=== PATIENT | male | born 1950 | race Caucasian/White ===

== ENCOUNTER 2017-09-28 10:32 | Inpatient (IN) | payer MEDICARE ==
[2017-09-28] VITALS (14 sets, daily range): BP systolic 78–103; BP diastolic 50–56; PULSE 76–88; RESP 17–26; TEMP 97.2–98.1; O2SAT 94–100
[~2017-09-28] VITALS: Ht 172.7 cm; Wt 65.8 kg
[2017-09-28] MEDS ORDERED: SODIUM CHLORIDE 0.9% FLUSH 10 ML FLUSH IVF PRN (11:15)
--- NOTE | 2017-09-28 11:36 | PD ---
HPI . Weakness/fall Chief Complaint: Fall Time Seen by Provider: 11:04 Travel History International Travel<30 days: No Contact w/Intl Traveler<30days: No Traveled to known affect area: No History of Present Illness HPI 66-year-old male patient presents emergency department for evaluation of weakness that caused him to fall on his knees earlier today and not be able to get up. Patient states the fall was mechanical in nature when he was attempting to the door. Patient denies syncope or loss of consciousness. Patient denies hitting his head or sustaining any injuries during this fall. Patient states she has had diarrhea 3-4 weeks. He had decreased appetite but denies any nausea or vomiting. Patient looks disheveled, unkempt and ashen in color. Patient smokes 2 packs of cigarettes a day. He denies any alcohol or drug use. Patient denies any major medical history and does not take any daily medication. PFSH Past Medical History Diminished Hearing: No Hepatitis: Yes (HEP C "IN THE 80'S" ) Influenza Vaccination: No Past Surgical History Surgical History: No Previous Surgery Social History Alcohol Use: Yes (OCCASIONAL WINE) Tobacco Use: Yes (1/2-1 PPD) Substance Use: No Allergies-Medications (Allergen,Severity, Reaction): Coded Allergies: No Known Allergies (Unverified , 09/28/17) Review of Systems Except as stated in HPI: all other systems reviewed are Neg Physical Exam Narrative GENERAL: Well-nourished, well-developed 66-year-old male patient in no acute distress. Nontoxic appearing. SKIN: Focused skin assessment warm/dry. HEAD: Normocephalic. Atraumatic. NEUROLOGICAL: Awake and alert. Cranial nerves II through XII intact. Motor and sensory grossly within normal limits. Five out of 5 muscle strength in all muscle groups. Normal speech. EYES: No scleral icterus. No injection or drainage. NECK: Supple, trachea midline. No JVD or lymphadenopathy. CARDIOVASCULAR: Regular rate and rhythm without murmurs, gallops, or rubs. RESPIRATORY: Breath sounds equal bilaterally. No accessory muscle use. GASTROINTESTINAL: Abdomen soft, non-tender, nondistended. MUSCULOSKELETAL: No cyanosis, or edema. BACK: Nontender without obvious deformity. No CVA tenderness. Data Data Last Documented VS Vital Signs Date Time Temp Pulse Resp B/P (MAP) Pulse Ox O2 Delivery O2 Flow Rate FiO2 09/28/17 12:03 83 18 103/55 (71) 95 Room Air 09/28/17 10:41 97.4 Orders Orders Electrocardiogram (09/28/17 11:12) Complete Blood Count With Diff (09/28/17 11:12) Comprehensive Metabolic Panel (09/28/17 11:12) Magnesium (Mg) (09/28/17 11:12) Ckmb (Isoenzyme) Profile (09/28/17 11:12) Troponin I (09/28/17 11:12) Act Partial Throm Time (Ptt) (09/28/17 11:12) Prothrombin Time / Inr (Pt) (09/28/17 11:12) Urinalysis - C+S If Indicated (09/28/17 11:12) Chest, Single Ap (09/28/17 11:12) Blood Glucose (09/28/17 11:12) Ecg Monitoring (09/28/17 11:12) Iv Access Insert/Monitor (09/28/17 11:12) Oximetry (09/28/17 11:12) Oxygen Administration (09/28/17 11:12) Sodium Chloride 0.9% Flush (Ns Flush) (09/28/17 11:15) Orthostatic Vital Signs (09/28/17 11:12) Red Blood Cells (Rbc) (09/28/17 11:49) Blood Product Administration (09/28/17 11:49) Type And Screen (09/28/17 11:49) CKMB (09/28/17 11:30) CKMB% (09/28/17 11:30) Labs Laboratory Tests Test 09/28/17 11:30 White Blood Count 5.1 TH/MM3 Red Blood Count 1.78 MIL/MM3 Hemoglobin 6.1 GM/DL Hematocrit 18.3 % Mean Corpuscular Volume 102.6 FL Mean Corpuscular Hemoglobin 34.1 PG Mean Corpuscular Hemoglobin Concent 33.3 % Red Cell Distribution Width 16.8 % Platelet Count 91 TH/MM3 Mean Platelet Volume 7.7 FL Neutrophils (%) (Auto) 76.1 % Lymphocytes (%) (Auto) 16.0 % Monocytes (%) (Auto) 7.5 % Eosinophils (%) (Auto) 0.0 % Basophils (%) (Auto) 0.4 % Neutrophils # (Auto) 3.9 TH/MM3 Lymphocytes # (Auto) 0.8 TH/MM3 Monocytes # (Auto) 0.4 TH/MM3 Eosinophils # (Auto) 0.0 TH/MM3 Basophils # (Auto) 0.0 TH/MM3 CBC Comment AUTO DIFF Differential Comment AUTO DIFF CONFIRMED Toxic Granulation 1+ Platelet Estimate LOW Platelet Morphology Comment NORMAL Ovalocytes 1+ Acanthocytes OCC Prothrombin Time 16.9 SEC Prothromb Time International Ratio 1.7 RATIO Activated Partial Thromboplast Time 29.8 SEC Blood Urea Nitrogen 28 MG/DL Creatinine 0.53 MG/DL Random Glucose 113 MG/DL Total Protein 6.5 GM/DL Albumin 1.9 GM/DL Calcium Level 7.7 MG/DL Magnesium Level 2.1 MG/DL Alkaline Phosphatase 71 U/L Aspartate Amino Transf (AST/SGOT) 17 U/L Alanine Aminotransferase (ALT/SGPT) 9 U/L Total Bilirubin 1.6 MG/DL Sodium Level 142 MEQ/L Potassium Level 2.9 MEQ/L Chloride Level 101 MEQ/L Carbon Dioxide Level 33.6 MEQ/L Anion Gap 7 MEQ/L Estimat Glomerular Filtration Rate 156 ML/MIN Total Creatine Kinase 109 U/L Troponin I LESS THAN 0.02 NG/ML MDM Medical Decision Making Medical Screen Exam Complete: Yes Emergency Medical Condition: Yes Differential Diagnosis Differential diagnoses include but not limited to electrolyte abnormality, syncope, coronary event, hypoxia, malignancy, dehydration, GI bleed Narrative Course 66 year old male patient presents to the emergency department for evaluation after falling on his knee while trying to answer the door at the hotel he is staying at. When he fell on his knees he was unable to keep back up. IV obtained , patient placed on the monitor and blood work sent to the lab. CBC, CMP, Mag, Trop/CK, PT/INR, UA ordered and pending. Orthostatic vital signs, chest x-ray, blood glucose, EKG obtained. Patient's baseline O2 sat is low 90s, but patient desaturated significantly when he sat up in bed to the mid 70s. Supplemental oxygen applied. CBC resulted a critically low HBG at 6.1. Type and screen ordered and pending. 2 packed RBCs ordered. Mass versus loculated pleural fluid seen in the right midlung. Bedside Hemoccult stool test performed with RN and student nurse at the bedside. Hemoccult positive. Patient will be admitted to the hospital for GI bleed and anemia. Residents paged for admission. Dr Ptae and the residents accepted admission. Patient will be admitted at this time. Last Impressions Chest X-Ray 09/28/17 1112 Signed Impressions: Service Date/Time: Thursday, September 28, 2017 11:23 - CONCLUSION: 1. Mass versus loculated pleural fluid in the fissure of the right mid lung. CT of the chest is recommended, preferably with intravenous contrast. 2. Small free-flowing right pleural effusion at the base. 3. Left lung is clear. 4. Tortuous thoracic aorta. Nicko Goodman MD Diagnosis Primary Impression: GI bleed Qualified Codes: K92.2 - Gastrointestinal hemorrhage, unspecified Additional Impression: Anemia Qualified Codes: D64.9 - Anemia, unspecified Admitting Information Admitting Physician Requests: Admit Sharron Gill Sep 28, 2017 11:36
--- NOTE | 2017-09-28 11:39 | RADRPT ---
EXAM DATE/TIME: 09/28/2017 11:23 [facility] COMPARISON: No previous studies available for comparison. INDICATIONS : Weakness, fainted today. MEDICAL HISTORY : Unobtainable SURGICAL HISTORY : Unobtainable ENCOUNTER: Initial ACUITY: 1 day PAIN SCORE: 0/10 LOCATION: Bilateral chest FINDINGS: Right perihilar masslike opacity measuring 2.5 x 3.9 cm in size. Differential is mass versus focally loculated fluid in the fissure. Mild right mid lung parenchymal consolidation. A small right pleural effusion is evident. The left lung is clear. There is no pneumothorax. Normal heart size. Thoracic aorta is tortuous. CONCLUSION: 1. Mass versus loculated pleural fluid in the fissure of the right mid lung. CT of the chest is recom mended, preferably with intravenous contrast. 2. Small free-flowing right pleural effusion at the base. 3. Left lung is clear. 4. Tortuous thoracic aorta. Nicko Goodman MD on September 28, 2017 at 11:35 Board Certified Radiologist. This report was verified electronically.
[2017-09-28 11:45] LABS: AUTOMATED NEUTROPHIL # 3.9 TH/MM3 (1.8-7.7); BASOPHIL % 0.4 % (0.0-2.0); LYMPHOCYTE # 0.8 TH/MM3 (1.0-4.8); MEAN CELL VOLUME 102.6 FL (80.0-100.0); MEAN CORPUSCULAR HEMOGLOBIN 34.1 PG (27.0-34.0); MEAN CORPUSCULAR HGB CONC 33.3 % (32.0-36.0); MEAN PLATELET VOLUME 7.7 FL (7.0-11.0); MONO % 7.5 % (0.0-8.0); MONOCYTE # 0.4 TH/MM3 (0-0.9); NEUT % 76.1 % (16.0-70.0); PLATELET COUNT 91 TH/MM3 (150-450); RED BLOOD COUNT 1.78 MIL/MM3 (4.50-5.90); RED CELL DISTRIBUTION WIDTH 16.8 % (11.6-17.2); WHITE BLOOD COUNT 5.1 TH/MM3 (4.0-11.0)
[2017-09-28 11:50] LABS: HEMATOCRIT 18.3 % (39.0-51.0); HEMOGLOBIN 6.1 GM/DL (13.0-17.0)
[2017-09-28 11:55] LABS: INTERNATIONAL NORMALIZED RATIO 1.7 RATIO; PROTHROMBIN TIME - PATIENT 16.9 SEC (9.8-11.6)
[2017-09-28 12:10] LABS: ALBUMIN 1.9 GM/DL (3.4-5.0); ALKALINE PHOSPHATASE 71 U/L (45-117); ALT (GPT) 9 U/L (12-78); AST (GOT) 17 U/L (15-37); BICARBONATE 33.6 MEQ/L (21.0-32.0); BLOOD UREA NITROGEN 28 MG/DL (7-18); CALCIUM 7.7 MG/DL (8.5-10.1); CHLORIDE 101 MEQ/L (98-107); CREATININE 0.53 MG/DL (0.60-1.30); GLOMERULAR FILTRATION RATE 156 ML/MIN (>89); GLUCOSE,RANDOM 113 MG/DL (74-106); MAGNESIUM 2.1 MG/DL (1.5-2.5); SODIUM (NA) 142 MEQ/L (136-145); TOTAL BILIRUBIN ADULT 1.6 MG/DL (0.2-1.0); TOTAL PROTEIN 6.5 GM/DL (6.4-8.2); TROPONIN I LESS THAN 0.02 NG/ML (0.02-0.05)
[2017-09-28 12:32] LABS: ACANTHOCYTES OCC (NORMAL); OVALOCYTES 1+ (NORMAL); TOXIC GRANULATION 1+ (NORMAL)
--- NOTE | 2017-09-28 13:29 | PD ---
Data Data Last Documented VS Vital Signs Date Time Temp Pulse Resp B/P (MAP) Pulse Ox O2 Delivery O2 Flow Rate FiO2 09/28/17 12:03 83 18 103/55 (71) 95 Room Air 09/28/17 10:41 97.4 Orders Orders Electrocardiogram (09/28/17 11:12) Complete Blood Count With Diff (09/28/17 11:12) Comprehensive Metabolic Panel (09/28/17 11:12) Magnesium (Mg) (09/28/17 11:12) Ckmb (Isoenzyme) Profile (09/28/17 11:12) Troponin I (09/28/17 11:12) Act Partial Throm Time (Ptt) (09/28/17 11:12) Prothrombin Time / Inr (Pt) (09/28/17 11:12) Chest, Single Ap (09/28/17 11:12) Blood Glucose (09/28/17 11:12) Ecg Monitoring (09/28/17 11:12) Iv Access Insert/Monitor (09/28/17 11:12) Oximetry (09/28/17 11:12) Oxygen Administration (09/28/17 11:12) Sodium Chloride 0.9% Flush (Ns Flush) (09/28/17 11:15) Orthostatic Vital Signs (09/28/17 11:12) Red Blood Cells (Rbc) (09/28/17 11:49) Blood Product Administration (09/28/17 11:49) Type And Screen (09/28/17 11:49) CKMB (09/28/17 11:30) CKMB% (09/28/17 11:30) Admit Order (Ed Use Only) (09/28/17 13:07) Labs Laboratory Tests Test 09/28/17 11:30 White Blood Count 5.1 TH/MM3 Red Blood Count 1.78 MIL/MM3 Hemoglobin 6.1 GM/DL Hematocrit 18.3 % Mean Corpuscular Volume 102.6 FL Mean Corpuscular Hemoglobin 34.1 PG Mean Corpuscular Hemoglobin Concent 33.3 % Red Cell Distribution Width 16.8 % Platelet Count 91 TH/MM3 Mean Platelet Volume 7.7 FL Neutrophils (%) (Auto) 76.1 % Lymphocytes (%) (Auto) 16.0 % Monocytes (%) (Auto) 7.5 % Eosinophils (%) (Auto) 0.0 % Basophils (%) (Auto) 0.4 % Neutrophils # (Auto) 3.9 TH/MM3 Lymphocytes # (Auto) 0.8 TH/MM3 Monocytes # (Auto) 0.4 TH/MM3 Eosinophils # (Auto) 0.0 TH/MM3 Basophils # (Auto) 0.0 TH/MM3 CBC Comment AUTO DIFF Differential Comment AUTO DIFF CONFIRMED Toxic Granulation 1+ Platelet Estimate LOW Platelet Morphology Comment NORMAL Ovalocytes 1+ Acanthocytes OCC Prothrombin Time 16.9 SEC Prothromb Time International Ratio 1.7 RATIO Activated Partial Thromboplast Time 29.8 SEC Blood Urea Nitrogen 28 MG/DL Creatinine 0.53 MG/DL Random Glucose 113 MG/DL Total Protein 6.5 GM/DL Albumin 1.9 GM/DL Calcium Level 7.7 MG/DL Magnesium Level 2.1 MG/DL Alkaline Phosphatase 71 U/L Aspartate Amino Transf (AST/SGOT) 17 U/L Alanine Aminotransferase (ALT/SGPT) 9 U/L Total Bilirubin 1.6 MG/DL Sodium Level 142 MEQ/L Potassium Level 2.9 MEQ/L Chloride Level 101 MEQ/L Carbon Dioxide Level 33.6 MEQ/L Anion Gap 7 MEQ/L Estimat Glomerular Filtration Rate 156 ML/MIN Total Creatine Kinase 109 U/L Creatine Kinase MB 1.4 NG/ML Troponin I LESS THAN 0.02 NG/ML [facility] Medical Record Reviewed: Yes Supervised Visit with TAMARA: Yes Narrative Course Please refer to the midlevel note. The patient will be admitted for PRBCs for further diagnostic evaluation. case d/w FMRP. Diagnosis Primary Impression: GI bleed Qualified Codes: K92.2 - Gastrointestinal hemorrhage, unspecified Additional Impression: Anemia Qualified Codes: D64.9 - Anemia, unspecified Kenny Alvarez MD Sep 28, 2017 13:29
--- NOTE | 2017-09-28 13:43 | HHI.HP ---
[facility] Service Family Medicine Primary Care Physician Admission Diagnosis GI bleed, anemia Diagnoses: International Travel<30 Days: No Contact w/Intl Traveler<30days: No Known Affected Area: No History of Present Illness 66 yr old M with Hep C, heavy smoking history (2ppd for 61 yrs), and chronic aspirin use presents to the ED with anemia. Patient is from [place] and travels to [place] during the winter season. He has been in [facility] for 1 month and has been staying at the [facility]. He reports falling down yesterday morning due to weakness after answering the door. He thought someone was knocking. After nobody was there, he was walking back to his bed when he felt weak and fell onto his knees. He did not hit his head or denies LOC. He was unable to get up off the floor afterwards. He is unsure, but he thinks he was stuck on the floor for over a day until someone came to help him. He lives by himself in the [facility] and the land lady checks up on him every so often. She found him after a day and immediately called 911. He was found to have a Hbg of 6.1 in the ED. He reports 1 month hx of black starry stools and diarrhea. He states that he has been taking 2-3 baby aspirins/day for the past couple of years. When asked if he took it for pain, he replied "I like the taste." He also reports taking advil routinely, but was unable to describe the amount and duration. He reports that his last meal was 2 weeks ago and has been drinking water and soda. He says that he use to be 200-210 lbs but has gradually lost weight. He endorses chronic cough. He denies CP, SOB, abdominal pain, and N/V. Review of Systems Constitutional: COMPLAINS OF: Fatigue, Weight loss, DENIES: Fever, Chills Eyes: DENIES: Blurred vision Ears, nose, mouth, throat: DENIES: Throat pain Respiratory: COMPLAINS OF: Cough, DENIES: Wheezing, Hemoptysis, Shortness of breath Cardiovascular: DENIES: Chest pain, Lower Extremity Edema Gastrointestinal: COMPLAINS OF: Black stools, Diarrhea, DENIES: Abdominal pain , Nausea, Vomiting Genitourinary: DENIES: Dysuria Musculoskeletal: COMPLAINS OF: Back pain (sacral ulcer ), DENIES: Muscle aches Hematologic/lymphatic: DENIES: Bruising, Lymphadenopathy Neurologic: DENIES: Headache Psychiatric: COMPLAINS OF: Confusion Past Family Social History Past Medical History Hepatitis C- reports being treated back in the 80s Past Surgical History None Allergies: Coded Allergies: No Known Allergies (Unverified , 09/28/17) Family History No family in [facility] or [place], reports only have 1 cousin in [place]. Has not talked to cousin in several years. Mom-DM Father- heavy smoker Social History Has been living in [facility] in a motel for 1 month, comes to [facility] every year during winter for the past 5 years Has smoked since he was 15, smokes 2ppd Drank alcohol in the past, said he stopped in his 20s Denies illicit drug use Physical Exam Vital Signs Vital Signs Date Time Temp Pulse Resp B/P (MAP) Pulse Ox O2 Delivery O2 Flow Rate FiO2 09/28/17 13:32 Nasal Cannula 2.00 09/28/17 12:03 83 18 103/55 (71) 95 Room Air 09/28/17 12:00 95 Room Air 09/28/17 12:00 83 18 103/55 (71) 95 Room Air 09/28/17 10:47 Room Air 09/28/17 10:41 97.4 86 26 103/55 (71) 97 Physical Exam GENERAL: disheveled, cachectic, man, looks older than his stated age SKIN: sacral ulcer -Stage I, severe crusting and calluses on b/l ankles and feet HEAD: Atraumatic. Normocephalic. No temporal or scalp tenderness. EYES: Pupils equal round and reactive. Extraocular motions intact. b/l conjunctival pallor ENT: Poor dentition, throat clear NECK: Trachea midline. No JVD or lymphadenopathy. CARDIOVASCULAR: Regular rate and rhythm without murmurs, gallops, or rubs. RESPIRATORY: Clear to auscultation. Breath sounds equal bilaterally. No wheezes , rales, or rhonchi. GASTROINTESTINAL: Abdomen soft, non-tender, non-distend. Able to palpate abdominal aorta. MUSCULOSKELETAL: Extremities without clubbing, cyanosis, or edema. No joint tenderness, effusion, or edema noted. NEUROLOGICAL: Awake, Alert, Oriented x3 . Laboratory Laboratory Tests Test 09/28/17 11:30 White Blood Count 5.1 Red Blood Count 1.78 Hemoglobin 6.1 Hematocrit 18.3 Mean Corpuscular Volume 102.6 Mean Corpuscular Hemoglobin 34.1 Mean Corpuscular Hemoglobin Concent 33.3 Red Cell Distribution Width 16.8 Platelet Count 91 Mean Platelet Volume 7.7 Neutrophils (%) (Auto) 76.1 Lymphocytes (%) (Auto) 16.0 Monocytes (%) (Auto) 7.5 Eosinophils (%) (Auto) 0.0 Basophils (%) (Auto) 0.4 Neutrophils # (Auto) 3.9 Lymphocytes # (Auto) 0.8 Monocytes # (Auto) 0.4 Eosinophils # (Auto) 0.0 Basophils # (Auto) 0.0 CBC Comment AUTO DIFF Differential Comment AUTO DIFF CONFIRMED Toxic Granulation 1+ Platelet Estimate LOW Platelet Morphology Comment NORMAL Ovalocytes 1+ Acanthocytes OCC Prothrombin Time 16.9 Prothromb Time International Ratio 1.7 Activated Partial Thromboplast Time 29.8 Blood Urea Nitrogen 28 Creatinine 0.53 Random Glucose 113 Total Protein 6.5 Albumin 1.9 Calcium Level 7.7 Magnesium Level 2.1 Alkaline Phosphatase 71 Aspartate Amino Transf (AST/SGOT) 17 Alanine Aminotransferase (ALT/SGPT) 9 Total Bilirubin 1.6 Sodium Level 142 Potassium Level 2.9 Chloride Level 101 Carbon Dioxide Level 33.6 Anion Gap 7 Estimat Glomerular Filtration Rate 156 Total Creatine Kinase 109 Creatine Kinase MB 1.4 Troponin I LESS THAN 0.02 Result Diagram: 09/28/17 1130 09/28/17 1130 Imaging Last Impressions Chest X-Ray 09/28/17 1112 Signed Impressions: Service Date/Time: Thursday, September 28, 2017 11:23 - CONCLUSION: 1. Mass versus loculated pleural fluid in the fissure of the right mid lung. CT of the chest is recommended, preferably with intravenous contrast. 2. Small free-flowing right pleural effusion at the base. 3. Left lung is clear. 4. Tortuous thoracic aorta. Nicko Goodman MD Caprini VTE Risk Assessment Caprini VTE Risk Assessment: Mod/High Risk (score >= 2) Caprini Risk Assessment Model Point Value = 1 Point Value = 2 Point Value = 3 Point Value = 5 Age 41-60 Minor surgery BMI > 25 kg/m2 Swollen legs Varicose veins or History of unexplained or recurrent spontaneous Oral contraceptives or hormone replacement Sepsis (< 1 month) Serious lung disease, including pneumonia (< 1 month) Abnormal pulmonary function Acute myocardial infarction Congestive heart failure (< 1 month) History of inflammatory bowel disease Medical patient at bed rest Age 61-74 Arthroscopic surgery Major open surgery (> 45 min) Laparoscopic surgery (> 45 min) Malignancy Confined to bed (> 72 hours) Immobilizing plaster cast Central venous access Age >= 75 History of VTE Family history of VTE Factor V Leiden Prothrombin [id number] Lupus anticoagulant Anticardiolipin antibodies Elevated serum homocysteine Heparin-induced thrombocytopenia Other congenital or acquired thrombophilia Stroke (< 1 month) Elective arthroplasty Hip, pelvis, or leg fracture Acute spinal cord injury (< 1 month) Prophylaxis Regimen Total Risk Factor Score Risk Level Prophylaxis Regimen 0-1 Low Early ambulation 2 Moderate Order ONE of the following: *Sequential Compression Device (SCD) *Heparin 5000 units SQ BID 3-4 Higher Order ONE of the following medications: *Heparin 5000 units SQ TID *Enoxaparin/Lovenox 40 mg SQ daily (WT < 150 kg, CrCl > 30 mL/min) *Enoxaparin/Lovenox 30 mg SQ daily (WT < 150 kg, CrCl > 10-29 mL/min) *Enoxaparin/Lovenox 30 mg SQ BID (WT < 150 kg, CrCl > 30 mL/min) AND/OR *Sequential Compression Device (SCD) 5 or more Highest Order ONE of the following medications: *Heparin 5000 units SQ TID (Preferred with Epidurals) *Enoxaparin/Lovenox 40 mg SQ daily (WT < 150 kg, CrCl > 30 mL/min) *Enoxaparin/Lovenox 30 mg SQ daily (WT < 150 kg, CrCl > 10-29 mL/min) *Enoxaparin/Lovenox 30 mg SQ BID (WT < 150 kg, CrCl > 30 mL/min) AND *Sequential Compression Device (SCD) Assessment and Plan Assessment and Plan 66 yr old M Hep C, hx of heavy smoking (2ppd for 61 yrs), and chronic aspirin use presents to the ED with anemia and black tarry stools secondary to suspected GI bleed. Hemoccult positive. GI consulted. Code Status DNR Discussed Condition With Dr. Pate and Dr. Xavier Problem List: (1) GI bleed ICD Codes: K92.2 - Gastrointestinal hemorrhage, unspecified Status: Acute Plan: Hb of 6.1,1 month hx of black tarry stools, chronic aspirin use 2 units of PRBCs ordered Hemoccult performed by RN in ED on 09/28- positive GI consulted, appreciate recs Monitor H/H post transfusion Protonix 40 mg IV q12h (2) Anemia ICD Codes: D64.9 - Anemia, unspecified Status: Acute Plan: Hb of 6.1 secondary to suspected GI bleed Please see plan above (3) Abnormal chest x-ray ICD Codes: R93.8 - Abnormal findings on diagnostic imaging of other specified body structures Plan: Heavy smoker. Mass 2.51 x 3.86 found on CXR. Small free-flowing right pleural effusion at the base. CT chest to further evaluate mass, will consider med onc consultation (4) Hypokalemia ICD Codes: E87.6 - Hypokalemia Plan: K+ 2.9 Orally replaced 60 meq potassium chloride once Continue to monitor (5) Hepatitis C ICD Codes: B19.20 - Unspecified viral hepatitis C without hepatic coma Plan: Patient reports history of Hep C. Patient reports being treated in the 's. LFTs wnl. (6) RALF (acute kidney injury) ICD Codes: N17.9 - Acute kidney failure, unspecified Plan: RALF secondary to dehydration BUN 28 and Cr 0.53 Continue to monitor MIVFs (7) Sacral wound ICD Codes: S31.000A - Unspecified open wound of lower back and pelvis without penetration into retroperitoneum, initial encounter Plan: Stage 1 sacral ulcer wound Wound care consulted, appreciate recs (8) Nutrition, metabolism, and development symptoms ICD Codes: R63.8 - Other symptoms and signs concerning food and fluid intake Plan: Fluids: 250mls hr MIVF for 1 bag, will continue with 140mls/hr thereafter Diet: Regular Basic Electrolytes: monitor and replace as needed Other: Case management consulted GI ppx: Protonix 40mg IV q12h DVT ppx: SCDs Physician Certification 2 Midnight Certification Type: Admission for Inpatient Services Order for Inpatient Services The services are ordered in accordance with Medicare regulations or non- Medicare payer requirements, as applicable. In the case of services not specified as inpatient-only, they are appropriately provided as inpatient services in accordance with the 2-midnight benchmark. Estimated LOS (days): 2 2 days is the estimated time the patient will need to remain in the hospital, assuming treatment plan goals are met and no additional complications. Post-Hospital Plan: Home Problem Qualifiers (1) GI bleed: Qualified Codes: K92.2 - Gastrointestinal hemorrhage, unspecified (2) Anemia: Qualified Codes: D64.9 - Anemia, unspecified Penelope Velasquez MD R1 Sep 28, 2017 13:43
[2017-09-28] MEDS ORDERED: NALOXONE HCL 0.4 MG/ML AMP IV PUSH PRN (13:45)
[2017-09-28] MEDS ORDERED: SODIUM CHLORIDE 0.9% FLUSH 10 ML FLUSH IV FLUSH PRN (13:45)
[2017-09-28] MEDS ORDERED: POTASSIUM CHLORIDE 10 MEQ CONTROLLED RELEASE TAB PO ONE (14:00)
[2017-09-28] MEDS: SODIUM CHLORIDE 0.9% FLUSH 10 ML FLUSH IV FLUSH SCH ×2 (14:03→21:00)
[2017-09-28] MEDS: SODIUM CHLOR 0.9% 1000 ML INJ 1,000 ML IV SCH ×2 (14:03→21:36)
[2017-09-28] MEDS: PANTOPRAZOLE SODIUM 40 MG VIAL IV PUSH SCH (14:04)
--- NOTE | 2017-09-28 14:05 | HHI.FPPN ---
Subjective Remarks Pt. seen, examined and discussed with the medicine team. This is a 66 yo male from [place] here for the winter who lives in a hotel for the past 3 weeks. 1-2 days ago (pt. unsure) he got up to answer the door and fell due to leg weakness. He was down for at least 1 full day, but was found today by his landlord. Unable to get him up; called [facility]. C/O progressive weakness for several weeks, and reports having loose, tarry and sticky stools for 3 weeks, unable to get to BR at times due to weakness. Did not note alyssa blood in stool. C/O cough, not productive of sputum or blood. Only liquids po for several weeks. C/O weakness of extremities. He takes 2-3 NSAIDS po daily for years, ASA and Advil and other OTC pain meds. Smokes 2 ppd (100 pack years). No etoh, no illicits. Never , no family known. Requests NO CODE. See H&P for this admission for additional past, family, social hx and ROS. Objective Vitals Vital Signs Date Time Temp Pulse Resp B/P (MAP) Pulse Ox O2 Delivery O2 Flow Rate FiO2 09/28/17 13:32 Nasal Cannula 2.00 09/28/17 12:03 83 18 103/55 (71) 95 Room Air 09/28/17 12:00 95 Room Air 09/28/17 12:00 83 18 103/55 (71) 95 Room Air 09/28/17 10:47 Room Air 09/28/17 10:41 97.4 86 26 103/55 (71) 97 Result Diagram: 09/28/17 1130 09/28/17 1130 Other Results Laboratory Tests Test 09/28/17 11:30 White Blood Count 5.1 TH/MM3 Red Blood Count 1.78 MIL/MM3 Hemoglobin 6.1 GM/DL Hematocrit 18.3 % Mean Corpuscular Volume 102.6 FL Mean Corpuscular Hemoglobin 34.1 PG Mean Corpuscular Hemoglobin Concent 33.3 % Red Cell Distribution Width 16.8 % Platelet Count 91 TH/MM3 Mean Platelet Volume 7.7 FL Neutrophils (%) (Auto) 76.1 % Lymphocytes (%) (Auto) 16.0 % Monocytes (%) (Auto) 7.5 % Eosinophils (%) (Auto) 0.0 % Basophils (%) (Auto) 0.4 % Neutrophils # (Auto) 3.9 TH/MM3 Lymphocytes # (Auto) 0.8 TH/MM3 Monocytes # (Auto) 0.4 TH/MM3 Eosinophils # (Auto) 0.0 TH/MM3 Basophils # (Auto) 0.0 TH/MM3 CBC Comment AUTO DIFF Differential Comment AUTO DIFF CONFIRMED Toxic Granulation 1+ Platelet Estimate LOW Platelet Morphology Comment NORMAL Ovalocytes 1+ Acanthocytes OCC Prothrombin Time 16.9 SEC Prothromb Time International Ratio 1.7 RATIO Activated Partial Thromboplast Time 29.8 SEC Blood Urea Nitrogen 28 MG/DL Creatinine 0.53 MG/DL Random Glucose 113 MG/DL Total Protein 6.5 GM/DL Albumin 1.9 GM/DL Calcium Level 7.7 MG/DL Magnesium Level 2.1 MG/DL Alkaline Phosphatase 71 U/L Aspartate Amino Transf (AST/SGOT) 17 U/L Alanine Aminotransferase (ALT/SGPT) 9 U/L Total Bilirubin 1.6 MG/DL Sodium Level 142 MEQ/L Potassium Level 2.9 MEQ/L Chloride Level 101 MEQ/L Carbon Dioxide Level 33.6 MEQ/L Anion Gap 7 MEQ/L Estimat Glomerular Filtration Rate 156 ML/MIN Total Creatine Kinase 109 U/L Creatine Kinase MB 1.4 NG/ML Troponin I LESS THAN 0.02 NG/ML Imaging Last Impressions Chest X-Ray 09/28/17 1112 Signed Impressions: Service Date/Time: Thursday, September 28, 2017 11:23 - CONCLUSION: 1. Mass versus loculated pleural fluid in the fissure of the right mid lung. CT of the chest is recommended, preferably with intravenous contrast. 2. Small free-flowing right pleural effusion at the base. 3. Left lung is clear. 4. Tortuous thoracic aorta. Nicko Goodman MD Objective Remarks O. CONSTITUTIONAL/GEN: Cachectic male, pale and weak, appearing >> stated age. EYES: conjunctiva very pale, PERRLA, EOMI. ENT: Mouth and pharynx show moist MM, upper teeth missing, many lower teeth absent, those remaining are in poor repair.. NECK: Supple LUNGS: Coarse breath sounds throughout CARDIOVASCULAR: RR without murmur or gallop. 2+ edema to knee bilaterally. GI/ABD: soft without masses, without organomegaly. Widened abdominal aorta. NEURO: No focal deficits. SKIN: color very pale, lichenification both ankles, Stage I sacral wound. HEME/LYMPH: no bruising, petechia or significant adenopathy MUSC: back is normal in appearance. Extremities show delayed capillary refill and stool crusted on both LE. PSYCH/MENTAL STATUS: Alert and oriented x 3. A/P Assessment and Plan 66 yo male with anemia, weakness, hx of NSAID abuse and 100 pack-year smoking history with heme positive stool and possible lung mass. See orders. Discharge Planning Case Management. Attending Attestation Patient seen and examined. Case reviewed and discussed with the resident team. Agree with plan of care as discussed with me and documented in the resident note. Iwona Pate MD Sep 28, 2017 14:05
--- NOTE | 2017-09-28 17:05 | PD.CONS ---
HPI History of Present Illness This is a 66 year old male who presented to the ED after falling down the day before due to weakness after answering the door. Reported that he thought he heard someone knocking on his door, but when he opened the door nobody was there. He started walking back to his bed when he subsequently fell onto his knees. Apparently he may have been stuck on the floor for about a day before the landlord came by to check on him. She called 911 immediately after finding him. Patient lives by himself at [facility] in [facility], where he has been living for the past month. Patient is from [place] and travels to [place] during the winter season. Reports he does not have a PCP. Past medical history is significant for Hepatitis C (s/p treatment), chronic aspirin use (2-3 per day ) for general "aches and pain" and chronic heavy tobacco use (up to 2 PPD). Reports gradual weight loss. GI was consulted for evaluation of anemia and black tarry stools. Patient noted to be anemic with HH 6.1/18.3. Heme positive stools noted in ED. PRBC x 2 has been ordered for patient. Patient reports he has noted dark stools for over a month. Denies abdominal pain, nausea, or vomiting. Never had Colonoscopy or EGD. (Maryana Alanis) PFSH Past Medical History Hepatitis C, s/p treatment in the 80s per patient Past Surgical History None (Maryana Alanis) Coded Allergies: No Known Allergies (Unverified , 09/28/17) Medications Current Medications Medications (Trade) Dose Ordered Sig/Jailene Route PRN Reason Start Time Stop Time Status Last Admin Dose Admin Sodium Chloride (NS Flush) 2 ml UNSCH PRN IVF FLUSH AFTER USING IV ACCESS 09/28/17 11:15 Sodium Chloride 1,000 ml @ 250 mls/hr Q4H IV 09/28/17 13:36 09/28/17 14:03 Sodium Chloride (NS Flush) 2 ml UNSCH PRN IV FLUSH FLUSH AFTER USING IV ACCESS 09/28/17 13:45 Sodium Chloride (NS Flush) 2 ml BID IV FLUSH 09/28/17 13:45 09/28/17 14:03 Naloxone HCl (Narcan Inj) 0.4 mg UNSCH PRN IV PUSH SEE LABEL COMMENTS 09/28/17 13:45 Pantoprazole Sodium (Protonix Inj) 40 mg Q12H IV PUSH 09/28/17 14:00 09/28/17 14:04 Sodium Chloride 1,000 ml @ 140 mls/hr Q7H9M IV 09/28/17 18:00 Pneumococcal Polyvalent Vaccine (Pneumovax-23 Inj) 25 mcg ONCE ONCE IM 09/29/17 10:00 09/29/17 10:01 Influenza Virus Vaccine (Flu (Quadrivalent) Vaccine Inj) 0.5 ml ONCE ONCE IM 09/29/17 10:00 09/29/17 10:01 Family History Father, heavy tobacco use, from aneurysm Mother, DM, liver disease No family history of colon cancer. Social History Tobacco, up to 2 PPD, since age of 15 y ETOH, denies, quit in his 20s Illicit Drugs, denies (Maryana Alanis) Review of Systems Constitutional: COMPLAINS OF: Fatigue, Weight loss, DENIES: Diaphoretic episodes, Fever, Weight gain, Chills, Dizziness, Change in appetite, Night Sweats Endocrine: DENIES: Polydipsia, Polyuria Eyes: DENIES: Blurred vision, Photosensitivity, Double Vision Ears, nose, mouth, throat: DENIES: Hearing loss, Vertigo, Oral lesions, Throat pain, Hoarseness Respiratory: DENIES: Cough, Wheezing, Hemoptysis, Sputum production, Shortness of breath Cardiovascular: DENIES: Chest pain, Palpitations, Syncope, Lower Extremity Edema, Orthopnea, Claudication Gastrointestinal: COMPLAINS OF: Black stools, DENIES: Abdominal pain, Bloody stools, Constipation, Diarrhea, Nausea, Vomiting, Difficulty Swallowing, Anorexia, Odynophagia, Swelling of Abdomen, Heartburn, Hematemesis Genitourinary: DENIES: Urinary frequency, Urinary incontinence, Urgency, Hematuria, Dysuria, Nocturia Musculoskeletal: DENIES: Joint pain, Muscle aches, Stiffness, Joint Swelling, Back pain, Neck pain Integumentary: DENIES: Abnormal pigmentation, Nail changes, Pruritus, Rash, Jaundice Hematologic/lymphatic: DENIES: Bruising, Lymphadenopathy Immunologic/allergic: DENIES: Eczema, Urticaria Neurologic: DENIES: Abnormal gait, Headache, Localized weakness, Paresthesias Psychiatric: DENIES: Anxiety, Confusion, Mood changes, Depression, Agitation, Suicidal Ideation (Maryana Alanis) GI Exam Vitals I&O Vital Signs Date Time Temp Pulse Resp B/P (MAP) Pulse Ox O2 Delivery O2 Flow Rate FiO2 09/28/17 14:45 81 18 91/56 (68) 100 Nasal Cannula 2.00 09/28/17 14:06 81 18 91/56 (68) 100 Nasal Cannula 2.00 09/28/17 13:32 Nasal Cannula 2.00 09/28/17 12:03 83 18 103/55 (71) 95 Room Air 09/28/17 12:00 95 Room Air 09/28/17 12:00 83 18 103/55 (71) 95 Room Air 09/28/17 10:47 Room Air 09/28/17 10:41 97.4 86 26 103/55 (71) 97 Imaging Last Impressions Chest X-Ray 09/28/17 1112 Signed Impressions: Service Date/Time: Thursday, September 28, 2017 11:23 - CONCLUSION: 1. Mass versus loculated pleural fluid in the fissure of the right mid lung. CT of the chest is recommended, preferably with intravenous contrast. 2. Small free-flowing right pleural effusion at the base. 3. Left lung is clear. 4. Tortuous thoracic aorta. Nicko Goodman MD Laboratory Test 09/28/17 11:30 White Blood Count 5.1 TH/MM3 Red Blood Count 1.78 MIL/MM3 Hemoglobin 6.1 GM/DL Hematocrit 18.3 % Mean Corpuscular Volume 102.6 FL Mean Corpuscular Hemoglobin 34.1 PG Mean Corpuscular Hemoglobin Concent 33.3 % Red Cell Distribution Width 16.8 % Platelet Count 91 TH/MM3 Mean Platelet Volume 7.7 FL Neutrophils (%) (Auto) 76.1 % Lymphocytes (%) (Auto) 16.0 % Monocytes (%) (Auto) 7.5 % Eosinophils (%) (Auto) 0.0 % Basophils (%) (Auto) 0.4 % Neutrophils # (Auto) 3.9 TH/MM3 Lymphocytes # (Auto) 0.8 TH/MM3 Monocytes # (Auto) 0.4 TH/MM3 Eosinophils # (Auto) 0.0 TH/MM3 Basophils # (Auto) 0.0 TH/MM3 CBC Comment AUTO DIFF Differential Comment AUTO DIFF CONFIRMED Toxic Granulation 1+ Platelet Estimate LOW Platelet Morphology Comment NORMAL Ovalocytes 1+ Acanthocytes OCC Prothrombin Time 16.9 SEC Prothromb Time International Ratio 1.7 RATIO Activated Partial Thromboplast Time 29.8 SEC Blood Urea Nitrogen 28 MG/DL Creatinine 0.53 MG/DL Random Glucose 113 MG/DL Total Protein 6.5 GM/DL Albumin 1.9 GM/DL Calcium Level 7.7 MG/DL Magnesium Level 2.1 MG/DL Alkaline Phosphatase 71 U/L Aspartate Amino Transf (AST/SGOT) 17 U/L Alanine Aminotransferase (ALT/SGPT) 9 U/L Total Bilirubin 1.6 MG/DL Sodium Level 142 MEQ/L Potassium Level 2.9 MEQ/L Chloride Level 101 MEQ/L Carbon Dioxide Level 33.6 MEQ/L Anion Gap 7 MEQ/L Estimat Glomerular Filtration Rate 156 ML/MIN Total Creatine Kinase 109 U/L Creatine Kinase MB 1.4 NG/ML Troponin I LESS THAN 0.02 NG/ML Physical Examination HEENT: Normocephalic; atraumatic; no jaundice. Throat is clear. NECK: Neck is supple CHEST: CTA CARDIAC: RRR with no murmur gallop or rubs. ABDOMEN: Soft, nondistended, nontender; no hepatosplenomegaly; bowel sounds are present in all four quadrants. Abdominal aorta palpable. EXTREMITIES: No clubbing, cyanosis, or edema. SKIN: Normal; no rash; no jaundice. FIELD PROPERTY LOSS SPECIALIST: No focal deficits; alert and oriented times three. (Maryana Alanis) Assessment and Plan Plan ASSESSMENT: - Anemia, melena, heme positive stools. Never had EGD/Colonoscopy. HH 6.1/18.3 on admission. PRBC x 2 ordered for patient. - Hepatitis C, patient reports he is s/p treatment in 80s. LFT WNL. - Hypokalemia, K 2.9, per attending. - Lung mass? Heavy tobacco use. Chest Xray 09/28/17--1. Mass versus loculated pleural fluid in the fissure of the right mid lung. CT of the chest is recommended, preferably with intravenous contrast. 2. Small free-flowing right pleural effusion at the base. 3. Left lung is clear. 4. Tortuous thoracic aorta. CT of chest ordered for further evaluation. PLAN: - EGD/Colonoscopy on Friday - Obtain consents - Clear liquid diet today - NPO at [facility] - Bowel prep today - Monitor HH, transfuse as needed - Notify GI of active bleeding - Protonix IV BID - Supportive care - Further recommendations to follow based on results of above Patient seen and examined by Dr. Swain and myself and this note is written on his behalf. (Maryana Alanis) Plan Patient was seen and examined, agree with above-noted, questionable etiology for the anemia, high chance of malignancy, plan for colonoscopy EGD tomorrow (Lisa Swain MD) Maryana Alanis Sep 28, 2017 17:05 Lisa Swain MD Sep 28, 2017 17:32
[2017-09-28] MEDS ORDERED: PEG (High)/E-LYTE SOLN 4000 ML BTL PO ONE (17:15)
[2017-09-28] MEDS ORDERED: SODIUM CHLORID 0.9% 500 ML INJ 500 ML IV ONE (19:15)
[2017-09-29] VITALS (9 sets, daily range): BP systolic 86–132; BP diastolic 51–60; PULSE 76–113; RESP 14–22; TEMP 97.1–98.9; O2SAT 93–98
[2017-09-29] MEDS: SODIUM CHLOR 0.9% 1000 ML INJ 1,000 ML IV SCH ×8 (00:39→22:36)
[2017-09-29] MEDS ORDERED: POVIDONE IODINE 5% (ANTISEPSIS KIT) 4 APPLICATIONS EACH NARE PRN (01:00)
[2017-09-29] MEDS ORDERED: SODIUM CHLORID 0.9% 500 ML IV PRN (01:00)
[2017-09-29] MEDS ORDERED: METOPROLOL TARTRATE 25 MG TAB PO PRN (01:00)
[2017-09-29] MEDS ORDERED: CHLORHEXIDINE GLUCONATE 2 % 1 PACK (2 CLOTHS) TOPICAL PRN (01:00)
[2017-09-29] MEDS ORDERED: LACTATED RINGER'S 1000 ML IV PRN (01:00)
[2017-09-29] MEDS ORDERED: IOHEXOL 350 MG/ML 10 ML VIAL (for RAD DIAG) IVCONTRAST ONE (01:35)
[2017-09-29] MEDS: PANTOPRAZOLE SODIUM 40 MG VIAL IV PUSH SCH ×2 (02:13→16:15)
--- NOTE | 2017-09-29 02:14 | RADRPT ---
EXAM DATE/TIME: 09/29/2017 01:23 [facility] COMPARISON: CHEST SINGLE AP, September 28, 2017, 11:23. INDICATIONS : Abnormal chest x-ray; possible mass. IV CONTRAST: 84 cc Omnipaque 350 (iohexol) IV RADIATION DOSE: 4.16 CTDIvol (mGy) MEDICAL HISTORY : Hepatitis C. SURGICAL HISTORY : None. ENCOUNTER: Initial ACUITY: 1 day PAIN SCALE: 0/10 LOCATION: chest TECHNIQUE: Volumetric scanning of the chest was performed. Using automated exposure control and adjustment of t he mA and/or kV according to patient size, radiation dose was kept as low as reasonably achievable to obtain optimal diagnostic quality images. DICOM format image data is available electronically for review and comparison. Follow-up recommendations for detected pulmonary nodules are based at a minimum on nodule size and pa tient risk factors according to Fleischner Society Guidelines. FINDINGS: LUNGS: There are consolidative infiltrates in the right lower lobe posteriorly adjacent pleural effusion wit h air bronchograms. There is minimal atelectasis just to the left pleural effusion. PLEURA: Small left-sided pleural effusion. On the right side, there is a small posterior pleural effusion wi th fluid tracking into the superior aspect of the major fissure creating a pseudotumor type appearanc e; the fluid in the major fissure measures 5.1 x 2.5 cm MEDIASTINUM: The heart and great vessels demonstrate no acute abnormality. There is no mediastinal or hilar lymph adenopathy. Coronary artery calcifications. AXILLAE: Within normal limits. No lymphadenopathy. SKELETAL: Within normal limits for patient age. MISCELLANEOUS: Ascites about the liver measuring up to 2.3 cm. There are 2 laminated calcified gallstones measuring up to 1.3 cm in size. CONCLUSION: 1. The dominant opacity seen on recent chest x-ray represents loculated pleural effusion in the super ior major fissure. 2. Small bilateral pleural effusions, mild consolidative infiltrates in the right lower lung, and rig ht upper abdominal ascites. 3. Calcified gallstones. David Blunt MD on September 29, 2017 at 2:07 Board Certified Radiologist. This report was verified electronically.
[2017-09-29 02:16] LABS: AUTOMATED NEUTROPHIL # 2.3 TH/MM3 (1.8-7.7); BASOPHIL % 0.2 % (0.0-2.0); HEMATOCRIT 21.4 % (39.0-51.0); HEMOGLOBIN 7.4 GM/DL (13.0-17.0); LYMPH % 18.3 % (9.0-44.0); LYMPHOCYTE # 0.6 TH/MM3 (1.0-4.8); MEAN CELL VOLUME 93.7 FL (80.0-100.0); MEAN CORPUSCULAR HEMOGLOBIN 32.3 PG (27.0-34.0); MEAN CORPUSCULAR HGB CONC 34.5 % (32.0-36.0); MONO % 7.6 % (0.0-8.0); MONOCYTE # 0.2 TH/MM3 (0-0.9); NEUT % 73.9 % (16.0-70.0); PLATELET COUNT 53 TH/MM3 (150-450); RED BLOOD COUNT 2.28 MIL/MM3 (4.50-5.90); RED CELL DISTRIBUTION WIDTH 21.6 % (11.6-17.2); WHITE BLOOD COUNT 3.2 TH/MM3 (4.0-11.0)
[2017-09-29 02:30] LABS: ALBUMIN 1.6 GM/DL (3.4-5.0); ALKALINE PHOSPHATASE 58 U/L (45-117); ALT (GPT) LESS THAN 6 U/L (12-78); AST (GOT) 15 U/L (15-37); BICARBONATE 30.7 MEQ/L (21.0-32.0); BLOOD UREA NITROGEN 21 MG/DL (7-18); CALCIUM 7.3 MG/DL (8.5-10.1); CALCIUM-PROTEIN CORRECTED 8.2 MG/DL (8.5-10.1); CHLORIDE 103 MEQ/L (98-107); CREATININE 0.32 MG/DL (0.60-1.30); GLOMERULAR FILTRATION RATE 278 ML/MIN (>89); GLUCOSE,RANDOM 77 MG/DL (74-106); SODIUM (NA) 141 MEQ/L (136-145); TOTAL BILIRUBIN ADULT 2.7 MG/DL (0.2-1.0); TOTAL PROTEIN 5.4 GM/DL (6.4-8.2)
[2017-09-29] MEDS ORDERED: POTASSIUM CHLORIDE 20 MEQ CONTROLLED RELEASE TAB PO ONE (02:45)
[2017-09-29 04:11] LABS: BANDS 4 % (0-6); CORRECTED NUCLEATED RBC 2 /100 WBC (0-0); LYMPHOCYTES 13 % (9-44); MONOCYTES 5 % (0-8); NEUTROPHIL # MANUAL DIFF 2.6 TH/MM3 (1.8-7.7); NUCLEATED RED BLOOD CELL 2 (0-0); POLYS (SEG NEUTROPHILS) 78 % (16-70)
[2017-09-29 04:19] LABS: OVALOCYTES 1+ (NORMAL)
[2017-09-29 04:26] LABS: TOXIC GRANULATION 1+ (NORMAL)
[2017-09-29 04:27] LABS: TOXIC VACUOLATION PRESENT (NONE SEEN)
[2017-09-29] MEDS: SODIUM CHLORIDE 0.9% FLUSH 10 ML FLUSH IV FLUSH SCH ×2 (09:00→21:00)
[2017-09-29] MEDS ORDERED: INFLUENZA VIRUS VACCINE (QUADRIVALENT) 0.5 ML SYR IM ONE (10:00)
[2017-09-29] MEDS ORDERED: PNEUMOCOCCAL POLYVALENT INJ 25 MCG/0.5 ML SYR IM ONE (10:00)
--- NOTE | 2017-09-29 11:13 | HHI.FPPN ---
Subjective Remarks No acute events overnight. While round this AM, informed by the nurse that patient met sepsis criteria. Patient was tachycardic at 95-113 and hypotensive 86/53, likely source of infiltrate in RLL on chest CT. Patient complained of being severely thirsty. Sepsis workup done. Administered 500cc bolus of NS, broaden antibiotics to vancomycin and Zosyn, ordered blood cultures, UA, urine culture, and lactic acid. (Penelope Velasquez MD R1) Objective Vitals Vital Signs Date Time Temp Pulse Resp B/P (MAP) Pulse Ox O2 Delivery O2 Flow Rate FiO2 09/29/17 08:00 98.4 97 16 92/53 (66) 94 09/29/17 04:00 113 09/29/17 04:00 98.8 95 17 86/53 (64) 95 09/29/17 00:00 98.1 86 17 132/60 (84) 98 09/29/17 00:00 76 09/28/17 23:58 Nasal Cannula 2.00 09/28/17 22:11 98.1 80 18 103/54 95 09/28/17 21:36 97.8 86 17 80/53 97 09/28/17 20:00 97.8 86 17 80/53 (62) 09/28/17 20:00 84 09/28/17 18:54 87/53 (64) 09/28/17 18:00 84/52 (63) 09/28/17 17:42 97.8 88 20 80/51 09/28/17 17:06 97.9 85 20 78/50 100 09/28/17 16:00 76 09/28/17 15:00 97.2 78 18 93/52 (66) 94 09/28/17 14:45 81 18 91/56 (68) 100 Nasal Cannula 2.00 09/28/17 14:06 81 18 91/56 (68) 100 Nasal Cannula 2.00 09/28/17 13:32 Nasal Cannula 2.00 09/28/17 12:03 83 18 103/55 (71) 95 Room Air 09/28/17 12:00 95 Room Air 09/28/17 12:00 83 18 103/55 (71) 95 Room Air I/O 09/28/17 09/28/17 09/28/17 09/29/17 09/29/1711/17 07:00 15:00 23:00 07:00 15:00 23:00 Intake Total 710 ml 4578 ml Balance 710 ml 4578 ml Intake Oral 2000 ml IV Total 2148 ml Packed Cells 400 ml 400 ml Blood Product IV Normal Saline Flush 310 ml 30 ml # Voids 2 # Bowel Movements 5 (Penelope Velasquez MD R1) Result Diagram: 09/29/17 0200 09/29/17 0200 Objective Remarks O. CONSTITUTIONAL/GEN: Cachectic male, pale and weak, appearing >> stated age. EYES: conjunctiva very pale, PERRLA, EOMI. ENT: Mouth and pharynx show moist MM, upper teeth missing, many lower teeth absent, those remaining are in poor repair.. NECK: Supple LUNGS: Coarse breath sounds throughout CARDIOVASCULAR: RR without murmur or gallop. 1+ edema to knee bilaterally. GI/ABD: soft without masses, without organomegaly. Widened abdominal aorta. NEURO: No focal deficits. SKIN: color very pale, lichenification both ankles, sacral wound unstagable, 3cm x 6cm HEME/LYMPH: no bruising, petechia or significant adenopathy MUSC: back is normal in appearance. Extremities show delayed capillary refill. PSYCH/MENTAL STATUS: Alert and oriented x 3. (Penelope Velasquez MD R1) A/P Assessment and Plan 66 yr old M Hep C, hx of heavy smoking (2ppd for 61 yrs), and chronic aspirin use presents to the ED with anemia and black tarry stools secondary to suspected GI bleed. Hemoccult positive. GI consulted. Discharge Planning Case Management. Unclear timetable. (Penelope Velasquez MD R1) Attending Attestation Patient seen and examined. Case reviewed and discussed with the resident team. Agree with plan of care as discussed with me and documented in the resident note. (Iwona Pate MD) Problem List: (1) Sepsis ICD Codes: A41.9 - Sepsis, unspecified organism Status: Acute Plan: Patient tachycardic at 95-113 and hypotensive 86/53 this AM, likely source of infiltrate in RLL on chest CT. Lactic acid 1.4 Administered 500cc bolus of NS, MIVF 140mls/hr Broaden antibiotics to vancomycin 1,250mg IV q12h and Zosyn 3.375 gm IV q6h Blood cultures, UA, and urine culture ordered (2) GI bleed ICD Codes: K92.2 - Gastrointestinal hemorrhage, unspecified Status: Acute Plan: Hb of 6.1 upon admission,1 month hx of black tarry stools, chronic aspirin use 2 units of PRBCs transfused 09/28/17, Hb 7.4 post transfusion Continue to monitor CBC Hemoccult performed by RN in ED on 09/28- positive GI consulted, recommendations appreciated Protonix 40 mg IV q12h EGD/Colonoscopy today (3) Anemia ICD Codes: D64.9 - Anemia, unspecified Status: Acute Plan: Hb of 6.1 upon admission secondary to suspected GI bleed Please see plan above (4) Pancytopenia ICD Codes: D61.818 - Other pancytopenia Plan: Low WBC 3.2, Hb 7.4, plt 53 Most likely due to sepsis Will continue to monitor (5) Abnormal chest x-ray ICD Codes: R93.8 - Abnormal findings on diagnostic imaging of other specified body structures Plan: Heavy smoker. Mass 2.51 x 3.86 found on CXR. Small free-flowing right pleural effusion at the base. CT revealed dominant opacity seen on recent CXR represents loculated pleural effusion in the superior major fissure. Small b/l pleural effusions, mild consolidative infiltrates in the right lower lung, and right upper abdominal ascites. Calcified gallstones. (6) Hypokalemia ICD Codes: E87.6 - Hypokalemia Plan: K+ 2.9 upon admission Orally replaced Improving Continue to monitor (7) Hepatitis C ICD Codes: B19.20 - Unspecified viral hepatitis C without hepatic coma Plan: Patient reports history of Hep C. Patient reports being treated in the s. LFTs wnl. (8) RALF (acute kidney injury) ICD Codes: N17.9 - Acute kidney failure, unspecified Plan: RALF secondary to dehydration BUN 28 and Cr 0.53 upon admission Improving Continue to monitor MIVFs (9) Sacral wound ICD Codes: S31.000A - Unspecified open wound of lower back and pelvis without penetration into retroperitoneum, initial encounter Plan: Unstageable sacral wound, 3cm x 6cm Wound care consulted, recommendations appreciated 1) Cleanse sacral wound with normal saline,pat dry. 2) Apply skin prep to gibran wound 3) Santyl josé thick to wound bed 4) Cover with Maxorb 2 cut to fit. 5) Cover with dry dressing (boarder gauze) 6) Change dressing Daily (10) Nutrition, metabolism, and development symptoms ICD Codes: R63.8 - Other symptoms and signs concerning food and fluid intake Plan: Fluids: 140mls/hr Diet: Regular Basic Electrolytes: monitor and replace as needed Other: Case management consulted GI ppx: Protonix 40mg IV q12h DVT ppx: SCDs (Penelope Velasquez MD R1) Problem Qualifiers (1) GI bleed: Qualified Codes: K92.2 - Gastrointestinal hemorrhage, unspecified (2) Anemia: Qualified Codes: D64.9 - Anemia, unspecified Penelope Velasquez MD R1 Sep 29, 2017 11:13 Iwona Pate MD Sep 29, 2017 14:59
[2017-09-29] MEDS ORDERED: SODIUM CHLORID 0.9% 500 ML INJ 500 ML IV ONE (11:30)
[2017-09-29] MEDS ORDERED: AZITHROMYCIN INJ 500 MG in SODIUM CHLOR 0.9% 250 ML INJ 250 ML IV SCH (11:30)
[2017-09-29 11:55] LABS: INTERNATIONAL NORMALIZED RATIO 1.6 RATIO; PROTHROMBIN TIME - PATIENT 15.7 SEC (9.8-11.6)
[2017-09-29] MEDS ORDERED: PROPOFOL 200 MG/20 ML AMP IV ONE (12:00)
[2017-09-29] MEDS ORDERED: PHENYLEPH/NS 1000 MCG/10 ML SYR IV ONE (12:00)
[2017-09-29] MEDS ORDERED: cefTRIAXone INJ 1,000 MG in SODIUM CHLORIDE 0.9% INJ 100 ML IV SCH (12:00)
[2017-09-29] MEDS ORDERED: LIDOCAINE HCL 1% PF 5 ML SYRINGE OTHER ONE (12:00)
--- NOTE | 2017-09-29 12:26 | PD.WCN.NOT ---
Wound Consult Description: Consult ordered by DR.Van CARRANZA for sacral wound Communicated with: Irena Paul RN [address] [place] [address] Recommendation: Writers recommendation 1) Cleanse sacral wound with normal saline,pat dry. 2) Apply skin prep to gibran wound 3) Santyl josé thick to wound bed 4) Cover with Maxorb 2 cut to fit. 5) Cover with dry dressing (boarder gauze) 6) Change dressing Daily Additional Information: Patient was assessed by telegraphic typewriter mechanic and Rishi SINGH,[facility] for sacral wound.Assessment findings unstagable pressure injury ~3cm x ~6cm. Wound presents 100% yellow slough.No odor noted.Small amount of serous drainage noted to removed dressing.Wound cleansed with normal saline pat dry. Skin prep to blanchable periwound applied Optifoam sacral for temporary dressing.Patient tolerated wound care well. Reinforced need to reposition and offload with assistance. Ramya Diggs [facility] Sep 29, 2017 12:26
[2017-09-29] MEDS: POTASSIUM CHLOR 20 MEQ PREMIX 100 ML IV SCH ×2 (12:31→16:15)
[2017-09-29] MEDS: VANCOMYCIN INJ 1,250 MG in SODIUM CHLOR 0.9% 250 ML INJ 250 ML IV SCH (13:00)
[2017-09-29] MEDS ORDERED: AZITHROMYCIN 250 MG TAB PO ONE (14:00)
[2017-09-29] MEDS ORDERED: PIPERACIL-TAZO 3.375 GM PREMIX 50 ML IV SCH (14:00)
[2017-09-29] MEDS ORDERED: KETAMINE HCL 500 MG/5 ML VIAL ONE (14:46)
[2017-09-29] MEDS ORDERED: MIDAZOLAM HCL 2 MG/2 ML VIAL ONE (14:46)
[2017-09-29] MEDS ORDERED: DO NOT ADM ANY ANTICOAGULANT DRUGS PRN (15:45)
[2017-09-29] MEDS ORDERED: *RESP: ALBUTEROL 2.5 MG/3 ML NEB (PRN) PERIprocedural Use ONLY NEB ONE (15:54)
--- NOTE | 2017-09-29 16:08 | PD.PROCEDR ---
GI Procedure REFERRING PHYSICIAN Dr. Iwona Pate PROCEDURE PERFORMED EGD with biopsy followed by colonoscopy with snare polypectomy INDICATION FOR PROCEDURE Anemia, melena, guaiac-positive stools PROCEDURE: The procedure, risks and benefits were discussed with Mr. Friedman and informed consent was obtained. Anesthesia sedated him with Diprivan. He was placed in the left lateral decubitus position. EGD: The Pentax videoscope was introduced through the oropharynx and advanced to the second portion of the duodenum under direct visualization. Retroflexion was performed in the stomach. FINDINGS: Esophagus this appeared to be unremarkable and within normal limits The stomach the patient was noted to have a small hiatal hernia there was some swelling and edema in the folds in the antrum and in between the folds was a round ulcer benign-looking clean base no visible vessel biopsies were taken from this area it was also noted that the patient had superficial erosions throughout the antrum with erythema consistent with erosive gastritis otherwise gastric examination unremarkable with no active bleeding The duodenum this was unremarkable and within normal limits Colonoscopy: The Pentax videoscope was introduced through the rectum and advanced to the cecum where the ileocecal valve and appendiceal orifice were identified. Retroflexion was performed in the rectum. Colonic prep was fair FINDINGS: Colonic withdrawal time greater than 6 minutes as the scope was slowly withdrawn colonic mucosa was carefully inspected the patient was noted to have a medium size sessile polyp in the sigmoid this was excised using cold snare technique otherwise colonic examination was unremarkable so as retroflexion in rectal examination ESTIMATED BLOOD LOSS: None SPECIMENS REMOVED: Gastric and colonic samples COMPLICATIONS: None IMPRESSION: Hiatal hernia Gastric ulcer Erosive gastritis Colon polyp PLAN: Await biopsies Avoid NSAIDs and anticoagulation Continue PPI EGD in 2 months Colonoscopy in 2 years Continue with current supportive care Domingo Dykes MD Sep 29, 2017 16:08
[2017-09-29] MEDS: PIPERACIL-TAZO 3.375 GM PREMIX 50 ML IV SCH (17:00)
[2017-09-29 17:50] LABS: AUTOMATED NEUTROPHIL # 2.2 TH/MM3 (1.8-7.7); BASOPHIL % 0.1 % (0.0-2.0); EOSINOPHIL % 0.3 % (0.0-4.0); LYMPH % 13.3 % (9.0-44.0); LYMPHOCYTE # 0.4 TH/MM3 (1.0-4.8); MEAN CELL VOLUME 97.2 FL (80.0-100.0); MEAN CORPUSCULAR HEMOGLOBIN 32.5 PG (27.0-34.0); MEAN CORPUSCULAR HGB CONC 33.4 % (32.0-36.0); MEAN PLATELET VOLUME 7.7 FL (7.0-11.0); MONO % 4.1 % (0.0-8.0); MONOCYTE # 0.1 TH/MM3 (0-0.9); NEUT % 82.2 % (16.0-70.0); PLATELET COUNT 43 TH/MM3 (150-450); RED BLOOD COUNT 1.73 MIL/MM3 (4.50-5.90); RED CELL DISTRIBUTION WIDTH 22.5 % (11.6-17.2); WHITE BLOOD COUNT 2.6 TH/MM3 (4.0-11.0)
[2017-09-29 17:57] LABS: HEMOGLOBIN 5.6 GM/DL (13.0-17.0)
[2017-09-29 17:58] LABS: HEMATOCRIT 16.9 % (39.0-51.0)
[2017-09-29] MEDS ORDERED: SODIUM CHLOR 0.9% 250 ML INJ 250 ML IV ONE ×3 (18:30→19:00)
[2017-09-29] MEDS ORDERED: FUROSEMIDE 20 MG/2 ML VIAL IV PUSH ONE (18:30)
[2017-09-29] MEDS: COLLAGENASE OINT 30 GM TUBE TOPICAL SCH (18:50)
[2017-09-29 19:08] LABS: BANDS 5 % (0-6); CORRECTED NUCLEATED RBC 2 /100 WBC (0-0); LYMPHOCYTES 4 % (9-44); MONOCYTES 3 % (0-8); MYELOCYTES 1 % (0-0); NEUTROPHIL # MANUAL DIFF 2.4 TH/MM3 (1.8-7.7); NUCLEATED RED BLOOD CELL 2 (0-0); OVALOCYTES 1+ (NORMAL); POLYS (SEG NEUTROPHILS) 87 % (16-70); TOXIC GRANULATION 1+ (NORMAL)
--- NOTE | 2017-09-29 19:58 | EKG ---
Date Performed: 09/28/2017 Time Performed: 12:08:17 PTAGE: 66 years EKG: Sinus rhythm NONSPECIFIC T-WAVE ABNORMALITY BORDERLINE ECG NO PREVIOUS TRACING DOCTOR: Carlos Enrique Naidu Interpretating Date/Time 09/29/2017 19:57:52
--- NOTE | 2017-09-29 20:02 | EKG ---
Date Performed: 09/29/2017 Time Performed: 04:02:50 PTAGE: 66 years EKG: Sinus rhythm Lead(s) unsuitable for analysis: aVL Nonspecific ST change Normal ECG based on available leads PREVIOUS TRACING 09/28/12 @ 12.08 Compared to prior tracing no significant change DOCTOR: Carlos Enrique Naidu Interpretating Date/Time 09/29/2017 20:00:51
[2017-09-30] VITALS (16 sets, daily range): BP systolic 90–114; BP diastolic 52–65; PULSE 63–97; RESP 18–24; TEMP 97.4–99.2; O2SAT 94–98
[2017-09-30] MEDS: PIPERACIL-TAZO 3.375 GM PREMIX 50 ML IV SCH ×3 (02:51→10:04)
[2017-09-30] MEDS: PANTOPRAZOLE SODIUM 40 MG VIAL IV PUSH SCH ×2 (02:53→12:46)
[2017-09-30] MEDS: VANCOMYCIN INJ 1,250 MG in SODIUM CHLOR 0.9% 250 ML INJ 250 ML IV SCH ×2 (02:55→12:45)
[2017-09-30] MEDS: SODIUM CHLOR 0.9% 1000 ML INJ 1,000 ML IV SCH ×2 (02:56)
--- NOTE | 2017-09-30 03:56 | HHI.PR ---
Addendum to Inpatient Note Addendum Reason: Additional Documentation Additional Information Called Nurse to state that there was an issue with the cancellation of the FFP and platelets. Informed nurse to only give 1 FFP as I was unable to completely cancel the other orders after speaking with the blood bank. During that call, nurse informed me that pt was having more of a cough since receiving transfusions but no increase in respiratory status or O2 demand. Upon chart review, pt did meet sepsis criteria this morning. Additionally pt has been receiving 1.5 IVF since 09/28/17. Since fluids are already being held for transfusion, will continue to hold IVF due to concern for possible fluid overload from abx, IVF, and transfusions. CXR also ordered. Apple Vergara MD, R3 Sep 30, 2017 03:56
--- NOTE | 2017-09-30 04:38 | RADRPT ---
EXAM DATE/TIME: 09/30/2017 04:23 [place] COMPARISON: CHEST SINGLE AP, September 28, 2017, 11:23. INDICATIONS : Short of breath. MEDICAL HISTORY : None. SURGICAL HISTORY : None. ENCOUNTER: Subsequent ACUITY: 2 days PAIN SCORE: 0/10 LOCATION: Bilateral chest FINDINGS: Moderate patient rotation towards the right. Persistent opacity in the medial right lung, shown on r ecent CT represent loculated fluid in the major fissure. Hazy opacity at the left base characteristi c of pleural effusion. There are some new patchy infiltrate right infrahilar region with air broncho grams. The heart is normal size. CONCLUSION: 1. There are new patchy partially consolidative infiltrates in the right infrahilar region. 2. Stable loculated fluid in the right major fissure and small left pleural effusion. David Blunt MD on September 30, 2017 at 4:35 Board Certified Radiologist. This report was verified electronically.
[2017-09-30 06:20] LABS: BACTERIA, URINE RARE /hpf; BILIRUBIN, URINE NEG (NEG); BLOOD, URINE MOD (NEG); GLUCOSE,URINE NEG (NEG); HYALINE CAST, URINE 3 /lpf (RARE); KETONE, URINE NEG (NEG); MUCUS URINE FEW /lpf (OCC); NITRITE,URINE NEG (NEG); SQUAMOUS EPITHELIAL CELL URINE <1 /hpf (0-5); URINE COLOR LIGHT-YELLOW (YELLW/STRAW); URINE LEUKOCYTE ESTERASE NEG (NEG)
[2017-09-30] MEDS ORDERED: AZITHROMYCIN 250 MG TAB PO ONE (09:30)
--- NOTE | 2017-09-30 09:50 | HHI.FPPN ---
Subjective Remarks Residents paged overnight. Pt was having a cough since receiving transfusions of 2 units of RBCS, but no increase in respiratory status or O2 demand. Fluids were held due to concern for possible fluid overload from abs, IVF, and transfusions. CXR revealed new pathcy partially consolidative infiltrates in the right infrahilar region. Stable loculated fluids in the right major fissure and small left pleural effusion. Pt lying in bed, on 2L O2 NC. Pt complains of feeling weak and fatigue. Unable to get out of bed w/o assistance. He denies CP , SOB, abdominal pain, and dysuria. (Penelope Velasquez MD R1) Objective Vitals Vital Signs Date Time Temp Pulse Resp B/P (MAP) Pulse Ox O2 Delivery O2 Flow Rate FiO2 09/30/17 06:01 97.6 80 18 90/52 96 09/30/17 05:42 97.6 72 18 91/54 95 09/30/17 04:00 Nasal Cannula 2.00 09/30/17 04:00 97.7 97 18 97/61 (73) 98 09/30/17 04:00 63 09/30/17 01:57 94 Nasal Cannula 2.00 09/30/17 01:56 97.6 87 20 103/56 95 09/30/17 01:39 97.6 89 20 106/65 95 09/30/17 00:00 77 09/30/17 00:00 97.5 87 20 93/56 (68) 94 09/30/17 00:00 Nasal Cannula 2.00 09/29/17 22:22 98.2 93 22 104/58 96 09/29/17 22:03 97.5 87 20 100/58 96 09/29/17 20:00 80 09/29/17 20:00 97.4 100 20 101/59 (73) 93 09/29/17 17:00 97.1 91 16 96/52 (67) 93 09/29/17 16:15 97.9 109 24 109/56 (73) 98 Nasal Cannula 3 09/29/17 16:00 106 20 109/60 (76) 100 Nasal Cannula 2 09/29/17 15:47 98.3 107 22 111/60 (77) 100 Nasal Cannula 2 09/29/17 12:00 102 09/29/17 12:00 98.3 94 16 102/51 (68) 96 09/29/17 11:27 98.9 98 14 91/54 (66) 95 I/O 09/29/17 09/29/17 09/29/17 09/30/17 09/30/17 09/30/17 07:00 15:00 23:00 07:00 15:00 23:00 Intake Total 4578 ml 750 ml 1152.5 ml Balance 4578 ml 750 ml 1152.5 ml Intake Oral 2000 ml IV Total 2148 ml 50 ml 362.5 ml Packed Cells 400 ml 750 ml Blood Product IV Normal Saline Flush 30 ml 40 ml Other 700 ml # Voids 2 3 3 # Bowel Movements 5 (Penelope Velasquez MD R1) Result Diagram: 09/29/17 1657 09/29/17 0200 Objective Remarks O. CONSTITUTIONAL/GEN: Cachectic male, pale and weak, appearing >> stated age. EYES: conjunctiva very pale, PERRLA, EOMI. ENT: Mouth and pharynx show moist MM, upper teeth missing, many lower teeth absent, those remaining are in poor repair.. NECK: Supple LUNGS: Coarse breath sounds throughout CARDIOVASCULAR: RR without murmur or gallop. 1+ edema to knee bilaterally. GI/ABD: soft without masses, without organomegaly. Widened abdominal aorta. NEURO: No focal deficits. SKIN: color very pale, lichenification both ankles, sacral wound unstagable, 3cm x 6cm HEME/LYMPH: no bruising, petechia or significant adenopathy MUSC: back is normal in appearance. PSYCH/MENTAL STATUS: Alert and oriented x 3. (Penelope Velasquez MD R1) A/P Assessment and Plan 66 yr old M Hep C, hx of heavy smoking (2ppd for 61 yrs), and chronic aspirin use presented to the ED with anemia and black tarry stools secondary to suspected GI bleed. Patient found to be bacteremic. Blood cultures 09/29 - preliminary results positive for E.coli. Patient will be transfer to ICU for further care. 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 Discharge Planning Case Management. Unclear timetable. (Penelope Velasquez MD R1) Attending Attestation Patient seen and examined. Case reviewed and discussed with the resident team. Agree with plan of care as discussed with me and documented in the resident note. 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 Repeat lactic acid CT abd/pelvis w/o contrast ordered Continue vancomycin 1,250mg IV q12h, Zosyn 3.375 gm IV q6h,and Azithromycin 250mg PO daily (2) GI bleed ICD Codes: K92.2 - Gastrointestinal hemorrhage, unspecified Status: Acute Plan: Hb of 6.1 upon admission,1 month hx of black tarry stools, chronic aspirin use 2 units of PRBCs transfused 09/28/17 2units of PRBCs and 1 unit of plts transfused 09/29 Hb improved to 9.9 today Hemoccult performed by RN in ED on 09/28- positive GI consulted, recommendations appreciated EGD/colonoscopy demonstrated hiatal hernia, gastric ulcer, erosive gastritis and colon polyp Await biopsies Avoid NSAIDs and anticoagulation EGD in 2 months Colonoscopy in 2 years Continue Protonix 40 mg IV q12h (3) Pancytopenia ICD Codes: D61.818 - Other pancytopenia Plan: WBC trending down to 2.6, Hb 9.9 after 2 units of RBCS transfused 09/29, plts trending down to 40 Most likely due to sepsis Will continue to monitor Will consider consulting hem/onc (4) Abnormal chest x-ray ICD Codes: R93.8 - Abnormal findings on diagnostic imaging of other specified body structures Plan: Heavy smoker. Mass 2.51 x 3.86 found on CXR. Small free-flowing right pleural effusion at the base. CT revealed dominant opacity seen on recent CXR represents loculated pleural effusion in the superior major fissure. Small b/l pleural effusions, mild consolidative infiltrates in the right lower lung, and right upper abdominal ascites. Calcified gallstones. (5) Hypokalemia ICD Codes: E87.6 - Hypokalemia Plan: K+ 2.9 upon admission Orally replaced Improving Continue to monitor (6) Hepatitis C ICD Codes: B19.20 - Unspecified viral hepatitis C without hepatic coma Plan: Patient reports history of Hep C. Patient reports being treated in the 's. LFTs wnl. (7) RALF (acute kidney injury) ICD Codes: N17.9 - Acute kidney failure, unspecified Plan: RALF secondary to dehydration BUN 28 and Cr 0.53 upon admission Improving Continue to monitor MIVFs (8) Sacral wound ICD Codes: S31.000A - Unspecified open wound of lower back and pelvis without penetration into retroperitoneum, initial encounter Plan: Unstageable sacral wound, 3cm x 6cm Wound care consulted, recommendations appreciated 1) Cleanse sacral wound with normal saline,pat dry. 2) Apply skin prep to gibran wound 3) Santyl josé thick to wound bed 4) Cover with Maxorb 2 cut to fit. 5) Cover with dry dressing (boarder gauze) 6) Change dressing Daily (9) Nutrition, metabolism, and development symptoms ICD Codes: R63.8 - Other symptoms and signs concerning food and fluid intake Plan: Fluids: 140mls/hr Diet: Regular Basic Electrolytes: monitor and replace as needed Other: Case management consulted GI ppx: Protonix 40mg IV q12h DVT ppx: SCDs (Penelope Velasquez MD R1) Problem Qualifiers (1) GI bleed: Qualified Codes: K92.2 - Gastrointestinal hemorrhage, unspecified Penelope Velasquez MD R1 Sep 30, 2017 09:50 Iwona Pate MD Oct 01, 2017 10:27
[2017-09-30] MEDS: SODIUM CHLORIDE 0.9% FLUSH 10 ML FLUSH IV FLUSH SCH ×2 (10:04→20:30)
[2017-09-30] MEDS: COLLAGENASE OINT 30 GM TUBE TOPICAL SCH (10:05)
[2017-09-30 13:33] LABS: AUTOMATED NEUTROPHIL # 1.7 TH/MM3 (1.8-7.7); BASOPHIL % 0.2 % (0.0-2.0); EOSINOPHIL % 0.1 % (0.0-4.0); HEMATOCRIT 28.8 % (39.0-51.0); HEMOGLOBIN 9.9 GM/DL (13.0-17.0); LYMPH % 27.3 % (9.0-44.0); LYMPHOCYTE # 0.7 TH/MM3 (1.0-4.8); MEAN CELL VOLUME 92.7 FL (80.0-100.0); MEAN CORPUSCULAR HGB CONC 34.5 % (32.0-36.0); MEAN PLATELET VOLUME 7.8 FL (7.0-11.0); MONO % 4.7 % (0.0-8.0); MONOCYTE # 0.1 TH/MM3 (0-0.9); NEUT % 67.7 % (16.0-70.0); PLATELET COUNT 40 TH/MM3 (150-450); RED CELL DISTRIBUTION WIDTH 19.5 % (11.6-17.2); WHITE BLOOD COUNT 2.6 TH/MM3 (4.0-11.0)
[2017-09-30 13:55] LABS: ALBUMIN 1.7 GM/DL (3.4-5.0); AST (GOT) 13 U/L (15-37); BICARBONATE 31.3 MEQ/L (21.0-32.0); BLOOD UREA NITROGEN 16 MG/DL (7-18); CALCIUM 7.9 MG/DL (8.5-10.1); CHLORIDE 102 MEQ/L (98-107); CREATININE 0.44 MG/DL (0.60-1.30); GLOMERULAR FILTRATION RATE 193 ML/MIN (>89); GLUCOSE,RANDOM 82 MG/DL (74-106); SODIUM (NA) 140 MEQ/L (136-145)
[2017-09-30 13:56] LABS: ALT (GPT) 8 U/L (12-78)
[2017-09-30 13:58] LABS: ALKALINE PHOSPHATASE 56 U/L (45-117); TOTAL BILIRUBIN ADULT 2.4 MG/DL (0.2-1.0)
[2017-09-30 14:12] LABS: BANDS 2 % (0-6); CORRECTED NUCLEATED RBC 2 /100 WBC (0-0); LYMPHOCYTES 25 % (9-44); MONOCYTES 9 % (0-8); NEUTROPHIL # MANUAL DIFF 1.7 TH/MM3 (1.8-7.7); NUCLEATED RED BLOOD CELL 2 (0-0); POLYS (SEG NEUTROPHILS) 64 % (16-70)
[2017-09-30] MEDS ORDERED: POTASSIUM CHLORIDE 10 MEQ CONTROLLED RELEASE TAB PO ONE (15:15)
--- NOTE | 2017-09-30 16:09 | HHI.GIFU ---
Subjective Remarks Pt resting in bed. Says he's not feeling well today. Denies bleeding or abd pain. (Mel Shannon) Objective Vitals I&O Vital Signs Date Time Temp Pulse Resp B/P (MAP) Pulse Ox O2 Delivery O2 Flow Rate FiO2 09/30/17 11:52 96 Nasal Cannula 2.00 09/30/17 08:00 99.2 76 18 93/53 (66) 96 09/30/17 06:01 97.6 80 18 90/52 96 09/30/17 05:42 97.6 72 18 91/54 95 09/30/17 04:00 Nasal Cannula 2.00 09/30/17 04:00 97.7 97 18 97/61 (73) 98 09/30/17 04:00 63 09/30/17 01:57 94 Nasal Cannula 2.00 09/30/17 01:56 97.6 87 20 103/56 95 09/30/17 01:39 97.6 89 20 106/65 95 09/30/17 00:00 77 09/30/17 00:00 97.5 87 20 93/56 (68) 94 09/30/17 00:00 Nasal Cannula 2.00 09/29/17 22:22 98.2 93 22 104/58 96 09/29/17 22:03 97.5 87 20 100/58 96 09/29/17 20:00 80 09/29/17 20:00 97.4 100 20 101/59 (73) 93 09/29/17 17:00 97.1 91 16 96/52 (67) 93 09/29/17 16:15 97.9 109 24 109/56 (73) 98 Nasal Cannula 3 I/O 09/29/17 09/29/17 09/29/17 09/30/17 09/30/17 09/30/17 07:00 15:00 23:00 07:00 15:00 23:00 Intake Total 4578 ml 750 ml 1152.5 ml Balance 4578 ml 750 ml 1152.5 ml Intake Oral 2000 ml IV Total 2148 ml 50 ml 362.5 ml Packed Cells 400 ml 750 ml Blood Product IV Normal Saline Flush 30 ml 40 ml Other 700 ml # Voids 2 3 3 # Bowel Movements 5 Laboratory Laboratory Tests Test 09/29/17 16:57 09/30/17 06:00 12/12/17 12:20 White Blood Count 2.6 2.6 Red Blood Count 1.73 3.10 Hemoglobin 5.6 9.9 Hematocrit 16.9 28.8 Mean Corpuscular Volume 97.2 92.7 Mean Corpuscular Hemoglobin 32.5 32.0 Mean Corpuscular Hemoglobin Concent 33.4 34.5 Red Cell Distribution Width 22.5 19.5 Platelet Count 43 40 Mean Platelet Volume 7.7 7.8 Neutrophils (%) (Auto) 82.2 67.7 Lymphocytes (%) (Auto) 13.3 27.3 Monocytes (%) (Auto) 4.1 4.7 Eosinophils (%) (Auto) 0.3 0.1 Basophils (%) (Auto) 0.1 0.2 Neutrophils # (Auto) 2.2 1.7 Lymphocytes # (Auto) 0.4 0.7 Monocytes # (Auto) 0.1 0.1 Eosinophils # (Auto) 0.0 0.0 Basophils # (Auto) 0.0 0.0 CBC Comment AUTO DIFF AUTO DIFF Differential Total Cells Counted 100 100 Neutrophils % (Manual) 87 64 Band Neutrophils % 5 2 Lymphocytes % 4 25 Monocytes % 3 9 Neutrophils # (Manual) 2.4 1.7 Myelocytes 1 Nucleated Red Blood Cells 2 2 Differential Comment FINAL DIFF MANUAL FINAL DIFF MANUAL Toxic Granulation 1+ Platelet Estimate RARE LOW Platelet Morphology Comment NORMAL NORMAL Ovalocytes 1+ Urine Color LIGHT-YELLOW Urine Turbidity CLEAR Urine pH 5.0 Urine Specific [place] 1.008 Urine Protein NEG Urine Glucose (UA) NEG Urine Ketones NEG Urine Occult Blood MOD Urine Nitrite NEG Urine Bilirubin NEG Urine Urobilinogen LESS THAN 2.0 Urine Leukocyte Esterase NEG Urine RBC 16 Urine WBC 1 Urine Squamous Epithelial Cells <1 Urine Bacteria RARE Urine Hyaline Casts 3 Urine Mucus FEW Microscopic Urinalysis Comment CULT NOT INDICATED Red Cell Morphology Comment NORMAL Blood Urea Nitrogen 16 Creatinine 0.44 Random Glucose 82 Total Protein 6.0 Albumin 1.7 Calcium Level 7.9 Alkaline Phosphatase 56 Aspartate Amino Transf (AST/SGOT) 13 Alanine Aminotransferase (ALT/SGPT) 8 Total Bilirubin 2.4 Sodium Level 140 Potassium Level 3.2 Chloride Level 102 Carbon Dioxide Level 31.3 Anion Gap 7 Estimat Glomerular Filtration Rate 193 Date/Time Source Procedure Growth Status 09/29/17 11:36 Blood Peripheral Aerobic Blood Culture - Preliminary Escherichia Coli Resulted 09/29/17 11:36 Anaerobic Blood Culture - Preliminary Gram Negative Bryce Resulted Imaging Last Impressions Chest X-Ray 09/30/17 0000 Signed Impressions: Service Date/Time: Saturday, September 30, 2017 04:23 - CONCLUSION: 1. There are new patchy partially consolidative infiltrates in the right infrahilar region. 2. Stable loculated fluid in the right major fissure and small left pleural effusion. David Blunt MD Chest CT 09/28/17 0000 Signed Impressions: Service Date/Time: Friday, September 29, 2017 01:23 - CONCLUSION: 1. The dominant opacity seen on recent chest x-ray represents loculated pleural effusion in the superior major fissure. 2. Small bilateral pleural effusions, mild consolidative infiltrates in the right lower lung, and right upper abdominal ascites. 3. Calcified gallstones. David Blunt MD Physical Exam HEENT: PERRL; normocephalic; atraumatic; no jaundice. CHEST: diminished CARDIAC: RRR ABDOMEN: Soft, nondistended, nontender; no hepatosplenomegaly; bowel sounds are present in all four quadrants. EXTREMITIES: No clubbing, cyanosis, or edema. SKIN: Normal; no rash; no jaundice. 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 (Mel Shannon [facility]) Assessment and Plan Plan - Anemia, melena, heme positive stools. HH 6.1/18.3 on admission. PRBC x 2 and HH improved S/P EGD and colonoscopy found hiatal hernia, gastric ulcer, erosive gastritis , colon polyp - Hepatitis C, patient reports he is s/p treatment in 80s. LFT WNL. - Hypokalemia, K per attending. - Lung mass? Heavy tobacco use. Chest Xray 09/28/17--1. Mass versus loculated pleural fluid in the fissure of the right mid lung. CT of the chest is recommended, preferably with intravenous contrast. 2. Small free-flowing right pleural effusion at the base. 3. Left lung is clear. 4. Tortuous thoracic aorta. CT of chest loculated pleural effusion, bilat effusions, mild consolidative infiltrates, right upper abd ascites, gallstones PLAN: - await biopsy - Monitor HH, transfuse as needed - Notify GI of active bleeding - Protonix IV BID - Supportive care - Further recommendations to follow based on results of above This pt seen by myself and Dr Dykes and this note is written on his behalf (Mel Shannon) Physician Comments Patient seen and examined Agree with above Continue with current supportive care Monitor labs No apparent active bleed Please report any active bleeding to GI Not much to add at this point from a GI perspective therefore we shall sign off (Domingo Dykes MD) Mel Shannon Sep 30, 2017 16:09 Domingo Dykes MD Sep 30, 2017 17:16
[2017-09-30] MEDS ORDERED: SODIUM CHLOR 0.9% 1000 ML INJ 1,000 ML IV STA (16:33)
[2017-09-30] MEDS ORDERED: DIATRIZOATE MEGLUM/DIATRIZOATE SOD 9 ML CUP PO ONE (16:45)
[2017-09-30] MEDS: PIPERACIL-TAZO 4.5 GM PREMIX 100 ML IV SCH ×2 (17:03→21:01)
--- NOTE | 2017-09-30 18:01 | PD.CONS ---
[facility] Service Critical Care Medicine Consult Requested By Dr. Pate Reason for Consult Sepsis, hypotension Primary Care Physician No Primary Care Physician History of Present Illness 66 year-old male with a medical history significant for hepatitis C, heavy smoking history and chronic aspirin use was brought to the hospital a few days back with severe generalized weakness going on for a few days along with diarrhea and black tarry stools. Patient reportedly has been taking 2-3 baby aspirins daily for few years. He also uses Advil routinely per history of present illness. He has is extremely poor by mouth intake with last meal being 2 weeks prior to admission and had been drinking water and soda. He has been having some weight loss. Patient was admitted with severe anemia. He received 3 units PRBCs and subsequently underwent evaluation by GI with EGD and colonoscopy which revealed gastritis and clean based gastric ulcer with no evidence of active bleeding. Patient had hypotension yesterday and was diagnosed to have sepsis based on hypotension and tachycardia. He underwent blood cultures on 09/29 and was initiated on empiric antibiotic coverage with IV vancomycin and Zosyn as well as Zithromax. His blood cultures drawn on are growing out Escherichia coli 2 out of 2 sets. Today patient developed hypotension again and is being transferred to the ICU. Critical care consult requested by family medicine service. I evaluated the patient up on the floor while he was waiting for ICU transfer. At that time he was not in any acute distress. He complain of generalized weakness. He denied any nausea vomiting. He has chronic abdominal pain. He has also had chronic diarrhea for a few months however has not had any diarrhea since yesterday per his RN. He does have a chronic cough however does not have any worsening of his cough or breathing. He denies any dysuria or frequency of urination or hematuria. He has been in [facility] to live every year for a month or so. He denies any history of liver cirrhosis. He underwent a CT chest on admission on 09/28 due to abnormal chest x-ray and was found to have a loculated pleural effusion on the right and small bilateral effusions. History was obtained by reviewing records and discussion with patient and nursing staff. ROS - General Review of Systems Constitutional: COMPLAINS OF: Fatigue, Weight loss, DENIES: Fever, Chills Eyes: DENIES: Blurred vision Ears, nose, mouth, throat: DENIES: Throat pain Respiratory: COMPLAINS OF: Cough, DENIES: Wheezing, Hemoptysis, Shortness of breath Cardiovascular: DENIES: Chest pain, Lower Extremity Edema Gastrointestinal: COMPLAINS OF: Black stools, Diarrhea, DENIES: Abdominal pain , Nausea, Vomiting Genitourinary: DENIES: Dysuria Musculoskeletal: COMPLAINS OF: Back pain (sacral ulcer ), DENIES: Muscle aches Hematologic/lymphatic: DENIES: Bruising, Lymphadenopathy Neurologic: DENIES: Headache Psychiatric: COMPLAINS OF: Confusion PFSH Past Family Social History Past Medical History Hepatitis C- reports being treated back in the 80s Past Surgical History None Allergies: Coded Allergies: No Known Allergies (Unverified , 09/28/17) Family History No family in [facility] or [place], reports only have 1 cousin in [place]. Has not talked to cousin in several years. Mom-DM Father- heavy smoker Social History Has been living in [facility] in a motel for 1 month, comes to [facility] every year during winter for the past 5 years Has smoked since he was 15, smokes 2ppd Drank alcohol in the past, said he stopped in his 20s Denies illicit drug use Physical Exam Vital Signs Vital Signs Date Time Temp Pulse Resp B/P (MAP) Pulse Ox O2 Delivery O2 Flow Rate FiO2 09/30/17 11:52 96 Nasal Cannula 2.00 09/30/17 08:00 99.2 76 18 93/53 (66) 96 09/30/17 06:01 97.6 80 18 90/52 96 09/30/17 05:42 97.6 72 18 91/54 95 09/30/17 04:00 Nasal Cannula 2.00 09/30/17 04:00 97.7 97 18 97/61 (73) 98 09/30/17 04:00 63 09/30/17 01:57 94 Nasal Cannula 2.00 09/30/17 01:56 97.6 87 20 103/56 95 09/30/17 01:39 97.6 89 20 106/65 95 09/30/17 00:00 77 09/30/17 00:00 97.5 87 20 93/56 (68) 94 09/30/17 00:00 Nasal Cannula 2.00 09/29/17 22:22 98.2 93 22 104/58 96 09/29/17 22:03 97.5 87 20 100/58 96 09/29/17 20:00 80 09/29/17 20:00 97.4 100 20 101/59 (73) 93 Physical Exam Elderly male who appears poorly nourished, laying in bed in no acute distress. HEENT/Neuro: Pallor present, No icterus, tongue moist, RENEE, Awake alert oriented 3, nonfocal grossly, moving all 4 extremities Neck: No JVD Chest/pulmonary: CTA bilaterally Cardiovascular: S1-S2 regular no gallop or murmur GI/abdomen: Soft, nontender, bowel sounds present. No organomegaly appreciated. Did not appreciate any ascites. Extremities: Warm bilaterally, no edema. Poor hygiene with significant crusting around nails. Laboratory Laboratory Tests Test 09/30/17 06:00 09/30/17 12:20 09/30/17 17:19 Urine Color LIGHT-YELLOW Urine Turbidity CLEAR Urine pH 5.[address] 1.008 Urine Protein NEG Urine Glucose (UA) NEG Urine Ketones NEG Urine Occult Blood MOD Urine Nitrite NEG Urine Bilirubin NEG Urine Urobilinogen LESS THAN 2.0 Urine Leukocyte Esterase NEG Urine RBC 16 Urine WBC 1 Urine Squamous Epithelial Cells <1 Urine Bacteria RARE Urine Hyaline Casts 3 Urine Mucus FEW Microscopic Urinalysis Comment CULT NOT INDICATED White Blood Count 2.6 Red Blood Count 3.10 Hemoglobin 9.9 Hematocrit 28.8 Mean Corpuscular Volume 92.7 Mean Corpuscular Hemoglobin 32.0 Mean Corpuscular Hemoglobin Concent 34.5 Red Cell Distribution Width 19.5 Platelet Count 40 Mean Platelet Volume 7.8 Neutrophils (%) (Auto) 67.7 Lymphocytes (%) (Auto) 27.3 Monocytes (%) (Auto) 4.7 Eosinophils (%) (Auto) 0.1 Basophils (%) (Auto) 0.2 Neutrophils # (Auto) 1.7 Lymphocytes # (Auto) 0.7 Monocytes # (Auto) 0.1 Eosinophils # (Auto) 0.0 Basophils # (Auto) 0.0 CBC Comment AUTO DIFF Differential Total Cells Counted 100 Neutrophils % (Manual) 64 Band Neutrophils % 2 Lymphocytes % 25 Monocytes % 9 Neutrophils # (Manual) 1.7 Nucleated Red Blood Cells 2 Differential Comment FINAL DIFF MANUAL Platelet Estimate LOW Platelet Morphology Comment NORMAL Red Cell Morphology Comment NORMAL Blood Urea Nitrogen 16 Creatinine 0.44 Random Glucose 82 Total Protein 6.0 Albumin 1.7 Calcium Level 7.9 Alkaline Phosphatase 56 Aspartate Amino Transf (AST/SGOT) 13 Alanine Aminotransferase (ALT/SGPT) 8 Total Bilirubin 2.4 Sodium Level 140 Potassium Level 3.2 Chloride Level 102 Carbon Dioxide Level 31.3 Anion Gap 7 Estimat Glomerular Filtration Rate 193 Date/Time Source Procedure Growth Status 09/30/17 17:19 Blood Peripheral Aerobic Blood Culture Pending Received 09/30/17 17:19 Blood Peripheral Anaerobic Blood Culture Pending Received Result Diagram: 09/30/17 1220 09/30/17 1220 Assessment and Plan Assessment and Plan XT 6-year-old male with: Generalized weakness Sepsis Escherichia coli bacteremia Melena (resolved) Chronic diarrhea Loculated pleural effusion Possible pneumonia Gallstones Plan: Neuro: Follow neuro status, pain medications as needed. Cardiovascular: 1 L normal saline bolus ordered. Increased IV fluids to 1 50 cc per hour LR. Watch for hypotension. Pulmonary: Supplemental O2 as needed, bronchodilators when necessary. GI/liver: Continue by mouth diet. Awaiting CT abdomen pelvis for further evaluation of Escherichia coli bacteremia. GI following for recent GI bleed. If patient has diarrhea we will send off stool cultures. ID: Positive blood cultures with Escherichia coli from 09/29. Continue IV Zosyn /Zithromax. Stop vancomycin IV. ID consult requested by family medicine service for further evaluation. Possible gallbladder source versus other intra- abdominal source versus possible pneumonia. Heme: Follow CBC. Worsening thrombocytopenia and leukopenia noted. We will obtain PT/INR, PTT and fibrinogen to evaluate for DIC. Consult hematology if thrombocytopenia worsens. Endocrine: Watch for hyperglycemia, SSI for glycemic control if needed. Prophylaxis: PPI/SCDs. No heparin in view of recent GI bleeding till cleared by GI. Discussed with family medicine service, discussed with floor RNs. Critical care will continue to follow. Lonny Parra MD Sep 30, 2017 18:01
[2017-09-30 22:34] LABS: INTERNATIONAL NORMALIZED RATIO 1.5 RATIO; PROTHROMBIN TIME - PATIENT 14.7 SEC (9.8-11.6)
[2017-10-01] VITALS (12 sets, daily range): BP systolic 93–108; BP diastolic 51–64; PULSE 62–108; RESP 15–26; TEMP 98–98.2; O2SAT 96–100
[2017-10-01] MEDS: VANCOMYCIN INJ 1,250 MG in SODIUM CHLOR 0.9% 250 ML INJ 250 ML IV SCH (00:16)
[2017-10-01] MEDS: PANTOPRAZOLE SODIUM 40 MG VIAL IV PUSH SCH ×2 (02:55→15:48)
--- NOTE | 2017-10-01 02:58 | RADRPT ---
EXAM DATE/TIME: 10/01/2017 02:21 [place] COMPARISON: No previous studies available for comparison. INDICATIONS : Abdomen pain. ORAL CONTRAST: Partial prescribed oral contrast ingested. RADIATION DOSE: 9.49 CTDIvol (mGy) MEDICAL HISTORY : Hepatitis C. SURGICAL HISTORY : None. ENCOUNTER: Initial ACUITY: 1 day PAIN SCALE: 5/10 LOCATION: Bilateral abdomen TECHNIQUE: Volumetric scanning of the abdomen and pelvis was performed. Using automated exposure control and ad justment of the mA and/or kV according to patient size, radiation dose was kept as low as reasonably achievable to obtain optimal diagnostic quality images. DICOM format image data is available electro nically for review and comparison. FINDINGS: There is a large left pleural effusion (5.3 cm) and small left pleural effusion with associated compr essive atelectasis of the adjacent lower lungs. There is significant amount of ascites underneath th e hemidiaphragms, tracking along both paracolic gutters, and to the root of the mesentery in the righ t lower quadrant and into the pelvis with free fluid measuring almost 10 cm in AP dimension there are 2 lamellated calcified gallstones which measure up to 1.3 cm in dimension. There is a saccular abdominal aortic aneurysm, infrarenal, measuring 5 cm in dimension. There is ahsan e soft tissue thickening about the aneurysm measuring up to 1.3 cm. There is also some induration of the mesentery diffusely throughout the abdomen. No dilated loops of small or large bowel. There is some oral contrast seen in the transverse colon a nd rectum. The liver, spleen, pancreas, and kidneys are unremarkable for noncontrast technique. The osseous str uctures are grossly intact. CONCLUSION: 1. 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 with some soft tissue thickening about th e aneurysm. 2. Moderate pleural effusions and moderate amount of abdominal pelvic ascites. 3. 2 calcified gallstones. David Blunt MD on October 01, 2017 at 2:51 Board Certified Radiologist. This report was verified electronically.
[2017-10-01] MEDS: PIPERACIL-TAZO 4.5 GM PREMIX 100 ML IV SCH ×4 (05:25→21:27)
[2017-10-01 05:35] LABS: AUTOMATED NEUTROPHIL # 1.9 TH/MM3 (1.8-7.7); BASOPHIL % 0.2 % (0.0-2.0); EOSINOPHIL % 0.1 % (0.0-4.0); HEMATOCRIT 29.8 % (39.0-51.0); HEMOGLOBIN 10.1 GM/DL (13.0-17.0); LYMPH % 22.4 % (9.0-44.0); LYMPHOCYTE # 0.6 TH/MM3 (1.0-4.8); MEAN CELL VOLUME 92.8 FL (80.0-100.0); MEAN CORPUSCULAR HEMOGLOBIN 31.3 PG (27.0-34.0); MEAN CORPUSCULAR HGB CONC 33.8 % (32.0-36.0); MEAN PLATELET VOLUME 7.5 FL (7.0-11.0); MONO % 6.4 % (0.0-8.0); MONOCYTE # 0.2 TH/MM3 (0-0.9); NEUT % 70.9 % (16.0-70.0); PLATELET COUNT 33 TH/MM3 (150-450); RED BLOOD COUNT 3.22 MIL/MM3 (4.50-5.90); RED CELL DISTRIBUTION WIDTH 18.7 % (11.6-17.2); WHITE BLOOD COUNT 2.7 TH/MM3 (4.0-11.0)
[2017-10-01 05:53] LABS: BICARBONATE 30.4 MEQ/L (21.0-32.0); CALCIUM 7.7 MG/DL (8.5-10.1); CREATININE 0.29 MG/DL (0.60-1.30)
[2017-10-01 07:04] LABS: BANDS 1 % (0-6); CORRECTED NUCLEATED RBC 3 /100 WBC (0-0); LYMPHOCYTES 10 % (9-44); MONOCYTES 4 % (0-8); NEUTROPHIL # MANUAL DIFF 2.3 TH/MM3 (1.8-7.7); NUCLEATED RED BLOOD CELL 3 (0-0); OVALOCYTES 1+ (NORMAL); POLYS (SEG NEUTROPHILS) 85 % (16-70); TOXIC GRANULATION 1+ (NORMAL)
[2017-10-01] MEDS ORDERED: POTASSIUM CHLORIDE 20 MEQ CONTROLLED RELEASE TAB PO ONE ×2 (07:15)
[2017-10-01] MEDS ORDERED: SODIUM CHLOR 0.9% 250 ML INJ 250 ML IV ONE (09:30)
[2017-10-01] MEDS ORDERED: diphenhydrAMINE HCL 25 MG CAP PO PRN (09:30)
--- NOTE | 2017-10-01 10:15 | HHI.FPPN ---
Subjective Remarks Patient transferred to ICU 09/30. Received fluid bolus last evening due to hypotension. BP 108/59 this AM. Afebrile. Currently on 2L O2 NC. Pt lying in bed , pleasant. No complaints. 6 voids, no BM recorded. He denies pain, CP, SOB, abdominal pain, diarrhea, and N/V. (Penelope Velasquez MD R1) Objective Vitals Vital Signs Date Time Temp Pulse Resp B/P (MAP) Pulse Ox O2 Delivery O2 Flow Rate FiO2 10/01/17 08:21 97 Nasal Cannula 2.00 10/01/17 06:00 66 10/01/17 04:00 67 10/01/17 04:00 98.0 69 20 93/51 (65) 99 10/01/17 02:00 68 10/01/17 00:00 98.0 75 20 107/59 (75) 97 10/01/17 00:00 75 09/30/17 22:00 65 09/30/17 20:00 98.0 77 20 114/64 (81) 96 09/30/17 20:00 77 09/30/17 19:00 96 Nasal Cannula 2.00 09/30/17 18:15 Nasal Cannula 2.00 09/30/17 18:15 85 09/30/17 18:15 99.2 88 24 110/61 (77) 96 09/30/17 13:07 84 09/30/17 12:09 79 09/30/17 12:00 97.4 79 18 104/58 (73) 96 09/30/17 11:52 96 Nasal Cannula 2.00 I/O 09/30/17 09/30/17 09/30/17 10/01/17 10/01/17 10/01/17 07:00 15:00 23:00 07:00 15:00 23:00 Intake Total 1152.5 ml 578 ml 240 ml Output Total 200 ml Balance 1152.5 ml 578 ml 40 ml Intake Oral 240 ml 240 ml IV Total 362.5 ml Packed Cells 750 ml FFP 338 ml Blood Product IV Normal Saline Flush 40 ml Output Urine Total 200 ml # Voids 3 2 # Bowel Movements 2 (Penelope Velasquez MD R1) Result Diagram: 10/01/17 0453 10/01/17452 Imaging Last Impressions Chest X-Ray 10/01/17 0000 Signed Impressions: Service Date/Time: Sunday, October 01, 2017 12:00 - CONCLUSION: 1. Questionable tiny right apical pneumothorax. 2. Minimal bibasilar atelectasis. 3. Left basilar density and small pleural effusion. Marc Alfredo MD Abdomen/Pelvis CT 09/30/17 0000 Signed Impressions: Service Date/Time: Sunday, October 01, 2017 02:21 - CONCLUSION: 1. 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 2. Moderate pleural effusions and moderate amount of abdominal pelvic ascites. 3. 2 calcified gallstones. David Blunt MD Chest CT 09/28/17 0000 Signed Impressions: Service Date/Time: Friday, September 29, 2017 01:23 - CONCLUSION: 1. The dominant opacity seen on recent chest x-ray represents loculated pleural effusion in the superior major fissure. 2. Small bilateral pleural effusions, mild consolidative infiltrates in the right lower lung, and right upper abdominal ascites. 3. Calcified gallstones. David Blunt MD Objective Remarks O. CONSTITUTIONAL/GEN: Cachectic male, pale and weak, appearing >> stated age. EYES: conjunctiva very pale, PERRLA, EOMI. ENT: Mouth and pharynx show moist MM, upper teeth missing, many lower teeth absent, those remaining are in poor repair.. NECK: Supple LUNGS: Coarse breath sounds throughout CARDIOVASCULAR: RR without murmur or gallop. 1+ edema to knee bilaterally. GI/ABD: soft without masses, without organomegaly. Widened abdominal aorta. NEURO: No focal deficits. SKIN: color very pale, lichenification both ankles, sacral wound unstagable, 3cm x 6cm HEME/LYMPH: no bruising, petechia or significant adenopathy MUSC: back is normal in appearance. PSYCH/MENTAL STATUS: Alert and oriented x 3. (Penelope Velasquez MD R1) A/P Assessment and Plan 66 yr old M Hep C, hx of heavy smoking (2ppd for 61 yrs), and chronic aspirin use presented to the ED with anemia and black tarry stools secondary to suspected GI bleed. Patient found to be bacteremic. Blood cultures 09/29 - preliminary positive for E.coli. Patient transferred to ICU 09/30. Currently being managed by critical care. Discharge Planning Case Management. Unclear timetable. (Penelope Velasquez MD R1) Attending Attestation Patient seen and examined. Case reviewed and discussed with the resident team. Agree with plan of care as discussed with me and documented in the resident note. (Iowna Pate MD) Problem List: (1) Bacteremia ICD Codes: R78.81 - Bacteremia Status: Acute Plan: Preliminary blood cultures 09/29 positive for E.coli Patient transfer to ICU on 09/30 for further care due to bacteremia Critical Care consulted and currently managing * CT abd/pelvis w/o contrast done 09/30 revealed moderate size left pleural effusion, ascites, 5cm infrarenal abdominal aortic aneurysm and mesenteric stranding. * LF 70cc/hr, watch for hypotension * 2-D echo ordered to asses LV and RV function * Plan for diagnostic and therapeutic left thoracentesis today * Ultrasound-guided paracentesis for further eval of ascites * Possibility of aortoenteric fistula * Will order PPD with anergy panel or M tuberculosis by [facility] GI reconsulted for mesenteric stranding and ascites, appreciate recommendations * Consider CTA * Await Duo/stomach biopsy * Check HCV quant ID consulted, appreciate recommendations * E.coli sepsis, source is likely GI, questionable SBP * Continue Zosyn 4.5 gm IV q6h (started 09/30) * Continue Azithromycin 250mg PO daily (10/01-10/04) History: Patient met sepsis criteria 09/29 due to tachycardic at 95-113 and hypotension 86/53 Lactic acid 1.4 09/29, Repeat lactic acid 1.5 s/p 500cc bolus of NS, MIVF 140mls/hr 09/29 Discontinued vancomycin 1,250mg IV q12h (09/29-10/01) (2) AAA (abdominal aortic aneurysm) ICD Codes: I71.4 - Abdominal aortic aneurysm, without rupture Plan: CT abd/pelvis w/o contrast done 09/30 5cm infrarenal abdominal aortic aneurysm Vascular surgery consulted, recs appreciated (3) Pancytopenia ICD Codes: D61.818 - Other pancytopenia Plan: WBC trending down since admission, Hb stable at 10.2, plts trending down since admission 2 units of RBCS transfused 09/28, 1 unit of RBCs transfused 09/29, and 1 unit of RBCs transfused 09/30 1 unit of platelets transfused 09/30 Hem/Onc consulted, appreciate recs (4) GI bleed ICD Codes: K92.2 - Gastrointestinal hemorrhage, unspecified Status: Acute Plan: Hb of 6.1 upon admission,1 month hx of black tarry stools, chronic aspirin use 2 units of RBCS transfused 09/28, 1 unit of RBCs transfused 09/29, and 1 unit of RBCs transfused 09/30 Hb improving Hemoccult performed by RN in ED on 09/28- positive GI consulted, recommendations appreciated EGD/colonoscopy demonstrated hiatal hernia, gastric ulcer, erosive gastritis and colon polyp Await biopsies Avoid NSAIDs and anticoagulation EGD in 2 months Colonoscopy in 2 years Continue Protonix 40 mg IV q12h (5) Abnormal chest x-ray ICD Codes: R93.8 - Abnormal findings on diagnostic imaging of other specified body structures Plan: Heavy smoker. Mass 2.51 x 3.86 found on CXR. Small free-flowing right pleural effusion at the base. CT revealed dominant opacity seen on recent CXR represents loculated pleural effusion in the superior major fissure. Small b/l pleural effusions, mild consolidative infiltrates in the right lower lung, and right upper abdominal ascites. Calcified gallstones. (6) Hypokalemia ICD Codes: E87.6 - Hypokalemia Plan: Potassium chloride 20-40meq IV PRN (7) Hepatitis C ICD Codes: B19.20 - Unspecified viral hepatitis C without hepatic coma Plan: Patient reports history of Hep C. Patient reports being treated in the s. LFTs wnl. Check HCV quant (8) RALF (acute kidney injury) ICD Codes: N17.9 - Acute kidney failure, unspecified Plan: RALF secondary to dehydration BUN 28 and Cr 0.53 upon admission Improving Continue to monitor (9) Sacral wound ICD Codes: S31.000A - Unspecified open wound of lower back and pelvis without penetration into retroperitoneum, initial encounter Plan: Unstageable sacral wound, 3cm x 6cm Wound care consulted, recommendations appreciated 1) Cleanse sacral wound with normal saline,pat dry. 2) Apply skin prep to gibran wound 3) Santyl josé thick to wound bed 4) Cover with Maxorb 2 cut to fit. 5) Cover with dry dressing (boarder gauze) 6) Change dressing Daily (10) Nutrition, metabolism, and development symptoms ICD Codes: R63.8 - Other symptoms and signs concerning food and fluid intake Plan: Fluids: LR 70cc/hr Diet: Regular Basic Electrolytes: monitor and replace as needed Other: Case management consulted GI ppx: Protonix 40mg IV q12h DVT ppx: SCDs (Penelope Velasquez MD R1) Problem Qualifiers (1) GI bleed: Qualified Codes: K92.2 - Gastrointestinal hemorrhage, unspecified Penelope Velasquez MD R1 Oct 01, 2017 10:15 Iwona Pate MD Oct 01, 2017 16:05
--- NOTE | 2017-10-01 10:29 | HHI.CCPN ---
Subjective Remarks/Hospital Course 09/30: 66 year-old male with a medical history significant for hepatitis C, heavy smoking history and chronic aspirin use was brought to the hospital a few days back with severe generalized weakness going on for a few days along with diarrhea and black tarry stools. Patient reportedly has been taking 2-3 baby aspirins daily for few years. He also uses Advil routinely per history of present illness. He has is extremely poor by mouth intake with last meal being 2 weeks prior to admission and had been drinking water and soda. He has been having some weight loss. Patient was admitted with severe anemia. He received 3 units PRBCs and subsequently underwent evaluation by GI with EGD and colonoscopy which revealed gastritis and clean based gastric ulcer with no evidence of active bleeding. Patient had hypotension yesterday and was diagnosed to have sepsis based on hypotension and tachycardia. He underwent blood cultures on 09/29 and was initiated on empiric antibiotic coverage with IV vancomycin and Zosyn as well as Zithromax. His blood cultures drawn on are growing out Escherichia coli 2 out of 2 sets. Today patient developed hypotension again and is being transferred to the ICU. Critical care consult requested by family medicine service. I evaluated the patient up on the floor while he was waiting for ICU transfer. At that time he was not in any acute distress. He complain of generalized weakness. He denied any nausea vomiting. He has chronic abdominal pain. He has also had chronic diarrhea for a few months however has not had any diarrhea since yesterday per his RN. He does have a chronic cough however does not have any worsening of his cough or breathing. He denies any dysuria or frequency of urination or hematuria. He has been in [facility] for a month at the [facility] where he comes down to live every year for a month or so. He denies any history of liver cirrhosis. He underwent a CT chest on admission on 09/28 due to abnormal chest x-ray and was found to have a loculated pleural effusion on the right and small bilateral effusions. History was obtained by reviewing records and discussion with patient and nursing staff. 10/01: Received a fluid bolus last evening and was transferred to the ICU. No hypotension since arrival to the ICU. He remains on 2 L nasal cannula overnight. Denies any nausea or abdominal discomfort. Denies any chest pain. Does not appear to be in any acute distress. Has not had any further melena or rectal bleeding or diarrhea. CT abdomen pelvis done on 09/30 revealed moderate size left pleural effusion, ascites, 5 cm infrarenal abdominal aortic aneurysm and mesenteric stranding. Objective Vital Signs Date Time Temp Pulse Resp B/P (MAP) Pulse Ox O2 Delivery O2 Flow Rate FiO2 10/01/17 08:21 97 Nasal Cannula 2.00 10/01/17 06:00 66 10/01/17 04:00 98.0 20 93/51 (65) Intake and Output 10/01/17 10/01/17 10/02/17 08:00 16:00 00:00 Intake Total 240 ml Output Total 200 ml Balance 40 ml Result Diagram: 10/01/17 0453 10/01/17 0453 Imaging Last Impressions Chest X-Ray 09/30/17 0000 Signed Impressions: Service Date/Time: Saturday, September 30, 2017 04:23 - CONCLUSION: 1. There are new patchy partially consolidative infiltrates in the right infrahilar region. 2. Stable loculated fluid in the right major fissure and small left pleural effusion. David Blunt MD Abdomen/Pelvis CT 09/30/17 0000 Signed Impressions: Service Date/Time: Sunday, October 01, 2017 02:21 - CONCLUSION: 1. 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 2. Moderate pleural effusions and moderate amount of abdominal pelvic ascites. 3. 2 calcified gallstones. David Blunt MD Chest CT 09/28/17 0000 Signed Impressions: Service Date/Time: Friday, September 29, 2017 01:23 - CONCLUSION: 1. The dominant opacity seen on recent chest x-ray represents loculated pleural effusion in the superior major fissure. 2. Small bilateral pleural effusions, mild consolidative infiltrates in the right lower lung, and right upper abdominal ascites. 3. Calcified gallstones. David Blunt MD Objective Remarks Elderly male who appears poorly nourished, laying in bed in no acute distress. HEENT/Neuro: Pallor present, No icterus, tongue moist, RENEE, Awake alert oriented 3, nonfocal grossly, moving all 4 extremities Neck: No JVD Chest/pulmonary: Air entry decreased bilaterally at bases, scattered rhonchi, minimal basilar crackles. Cardiovascular: S1-S2 regular no gallop or murmur GI/abdomen: Soft, nontender, bowel sounds present. Minimal distention noted. No organomegaly appreciated. Extremities: Warm bilaterally, no edema. Poor hygiene with significant crusting around nails. A/P Assessment and Plan XT 6-year-old male with: Generalized weakness Sepsis Escherichia coli bacteremia Melena (resolved) Chronic diarrhea Loculated pleural effusion/ bilateral pleural effusions (left greater than right ) Ascites Mesenteric stranding Infrarenal abdominal aortic aneurysm Possible pneumonia Gallstones Plan: Neuro: Follow neuro status, pain medications as needed. Cardiovascular: Received 1 L normal saline bolus on 09/30. On maintenance IV fluid 150 cc per hour LR which was decreased to 70 cc per hour. Watch for hypotension. Consulted vascular surgery for 5 cm infrarenal AAA. 2-D echo ordered to assess LV and RV function. Pulmonary: Supplemental O2 as needed, bronchodilators when necessary. Schedule for diagnostic and therapeutic left thoracentesis for further evaluation. GI/liver: Continue by mouth diet. Ordered ultrasound-guided paracentesis for further evaluation of ascites. GI reconsulted for mesenteric stranding and ascites. EGD and colonoscopy did not reveal source of blood loss. We'll discuss with GI/ vascular regarding possibility of aortoenteric fistula. ID: Positive blood cultures with Escherichia coli from 09/29. Continue IV Zosyn /Zithromax. Stop vancomycin IV. ID consult requested by family medicine service for further evaluation. Possible gallbladder source versus other intra- abdominal source versus possible pneumonia. Discussed with family medicine service to check PPD with anergy panel. Heme: Follow CBC. Worsening thrombocytopenia and leukopenia noted. One unit pheresed platelets ordered prior to thoracentesis/paracentesis. Hematology consult requested in view of pancytopenia with unexplained weight loss with concern for underlying malignancy/bone marrow disorder. Ordered anemia workup to evaluate for iron/ B12/ folate deficiency/hemolysis/bone marrow issue. Endocrine: Watch for hyperglycemia, SSI for glycemic control if needed. Prophylaxis: PPI/SCDs. No heparin in view of recent GI bleeding and worsening thrombocytopenia till cleared by GI. Discussed with family medicine service, discussed with floor RNs. Critical care will continue to follow. Lonny Parra MD Oct 01, 2017 10:29
[2017-10-01] MEDS: AZITHROMYCIN 250 MG TAB PO SCH (10:37)
[2017-10-01] MEDS: COLLAGENASE OINT 30 GM TUBE TOPICAL SCH (10:37)
[2017-10-01] MEDS: SODIUM CHLORIDE 0.9% FLUSH 10 ML FLUSH IV FLUSH SCH ×2 (10:37→20:54)
[2017-10-01] MEDS: POTASSIUM CHLORIDE 10 MEQ CONTROLLED RELEASE TAB PO SCH ×2 (10:42→11:40)
[2017-10-01] MEDS ORDERED: SODIUM PHOSPHATE INJ 30 MMOL in SODIUM CHLOR 0.9% 250 ML INJ 240 ML IV PRN (10:45)
[2017-10-01] MEDS ORDERED: MAGNESIUM SULFATE INJ 2 GM in SODIUM CHLORIDE 0.9% INJ 96 ML IV PRN (10:45)
[2017-10-01] MEDS ORDERED: POTASSIUM CHLORIDE 25 MEQ EFFERVESCENT TAB PO PRN (10:45)
[2017-10-01] MEDS ORDERED: MAGNESIUM SULFATE INJ 4 GM in SODIUM CHLORIDE 0.9% INJ 92 ML IV PRN (10:45)
[2017-10-01] MEDS ORDERED: POTASSIUM CHLOR 20 MEQ PREMIX 100 ML IV PRN ×2 (10:45)
[2017-10-01] MEDS ORDERED: POTASSIUM CHLOR 40 MEQ PREMIX 100 ML IV PRN ×2 (10:45)
[2017-10-01] MEDS ORDERED: POTASSIUM PHOSPHATE MONOBASIC 500 MG TAB PO/TUBE PRN (10:45)
[2017-10-01] MEDS ORDERED: MAGNESIUM OXIDE 400 MG TAB PO PRN (10:45)
[2017-10-01] MEDS ORDERED: POTASSIUM PHOSPHATE INJ 30 MMOL in SODIUM CHLOR 0.9% 250 ML INJ 250 ML IV PRN (10:45)
[2017-10-01] MEDS ORDERED: POTASSIUM PHOSPHATE MONOBASIC 500 MG TAB PO PRN (10:45)
[2017-10-01 11:28] LABS: RETIC # 67.4 MIL/L (20.0-150.0); RETIC % 2.1 % (0.4-3.0)
--- NOTE | 2017-10-01 11:56 | HHI.GIFU ---
Subjective Remarks Pt resting in bed. says he's not feeling great but has no GI complaints. (Mel Shannon) Objective Vitals I&O Vital Signs Date Time Temp Pulse Resp B/P (MAP) Pulse Ox O2 Delivery O2 Flow Rate FiO2 10/01/17 11:32 98.1 108 25 104/62 99 10/01/17 10:54 98.2 76 26 108/59 97 10/01/17 08:21 97 Nasal Cannula 2.00 10/01/17 06:00 66 10/01/17 04:00 67 10/01/17 04:00 98.0 69 20 93/51 (65) 99 10/01/17 02:00 68 10/01/17 00:00 98.0 75 20 107/59 (75) 97 10/01/17 00:00 75 09/30/17 22:00 65 09/30/17 20:00 98.0 77 20 114/64 (81) 96 09/30/17 20:00 77 09/30/17 19:00 96 Nasal Cannula 2.00 09/30/17 18:15 Nasal Cannula 2.00 09/30/17 18:15 85 09/30/17 18:15 99.2 88 24 110/61 (77) 96 09/30/17 13:07 84 09/30/17 12:09 79 09/30/17 12:00 97.4 79 18 104/58 (73) 96 09/30/17 11:52 96 Nasal Cannula 2.00 I/O 09/30/17 09/30/17 09/30/17 10/01/17 10/01/17 10/01/17 07:00 15:00 23:00 07:00 15:00 23:00 Intake Total 1152.5 ml 578 ml 240 ml 20 ml Output Total 200 ml Balance 1152.5 ml 578 ml 40 ml 20 ml Intake Oral 240 ml 240 ml IV Total 362.5 ml Packed Cells 750 ml FFP 338 ml Blood Product IV Normal Saline Flush 40 ml 20 ml Output Urine Total 200 ml # Voids 3 2 # Bowel Movements 2 Laboratory Laboratory Tests Test 09/30/17 12:20 09/30/17 17:19 09/30/17 20:56 10/01/17 04:53 White Blood Count 2.6 2.7 Red Blood Count 3.10 3.22 Hemoglobin 9.9 10.1 Hematocrit 28.8 29.8 Mean Corpuscular Volume 92.7 92.8 Mean Corpuscular Hemoglobin 32.0 31.3 Mean Corpuscular Hemoglobin Concent 34.5 33.8 Red Cell Distribution Width 19.5 18.7 Platelet Count 40 33 Mean Platelet Volume 7.8 7.5 Neutrophils (%) (Auto) 67.7 70.9 Lymphocytes (%) (Auto) 27.3 22.4 Monocytes (%) (Auto) 4.7 6.4 Eosinophils (%) (Auto) 0.1 0.1 Basophils (%) (Auto) 0.2 0.2 Neutrophils # (Auto) 1.7 1.9 Lymphocytes # (Auto) 0.7 0.6 Monocytes # (Auto) 0.1 0.2 Eosinophils # (Auto) 0.0 0.0 Basophils # (Auto) 0.0 0.0 CBC Comment AUTO DIFF AUTO DIFF Differential Total Cells Counted 100 100 Neutrophils % (Manual) 64 85 Band Neutrophils % 2 1 Lymphocytes % 25 10 Monocytes % 9 4 Neutrophils # (Manual) 1.7 2.3 Nucleated Red Blood Cells 2 3 Differential Comment FINAL DIFF MANUAL FINAL DIFF MANUAL Platelet Estimate LOW LOW Platelet Morphology Comment NORMAL NORMAL Red Cell Morphology Comment NORMAL Blood Urea Nitrogen 16 13 Creatinine 0.44 0.29 Random Glucose 82 73 Total Protein 6.0 Albumin 1.7 Calcium Level 7.9 7.7 Alkaline Phosphatase 56 Aspartate Amino Transf (AST/SGOT) 13 Alanine Aminotransferase (ALT/SGPT) 8 Total Bilirubin 2.4 Sodium Level 140 142 Potassium Level 3.2 2.9 Chloride Level 102 106 Carbon Dioxide Level 31.3 30.4 Anion Gap 7 6 Estimat Glomerular Filtration Rate 193 312 Lactic Acid Level 1.5 Prothrombin Time 14.7 Prothromb Time International Ratio 1.5 Activated Partial Thromboplast Time 36.7 Fibrinogen 293 Toxic Granulation 1+ Ovalocytes 1+ Reticulocyte Count 2.1 Absolute Reticulocyte Count 67.4 Date/Time Source Procedure Growth Status 09/30/17 17:19 Blood Peripheral Aerobic Blood Culture - Preliminary NO GROWTH IN 1 DAY Resulted 09/30/17 17:19 Blood Peripheral Anaerobic Blood Culture - Preliminary NO GROWTH IN 1 DAY Resulted Imaging Last Impressions Chest X-Ray 09/30/17 0000 Signed Impressions: Service Date/Time: Saturday, September 30, 2017 04:23 - CONCLUSION: 1. There are new patchy partially consolidative infiltrates in the right infrahilar region. 2. Stable loculated fluid in the right major fissure and small left pleural effusion. David Blunt MD Abdomen/Pelvis CT 09/30/17 0000 Signed Impressions: Service Date/Time: Sunday, October 01, 2017 02:21 - CONCLUSION: 1. 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 2. Moderate pleural effusions and moderate amount of abdominal pelvic ascites. 3. 2 calcified gallstones. David Blunt MD Chest CT 09/28/17 0000 Signed Impressions: Service Date/Time: Friday, September 29, 2017 01:23 - CONCLUSION: 1. The dominant opacity seen on recent chest x-ray represents loculated pleural effusion in the superior major fissure. 2. Small bilateral pleural effusions, mild consolidative infiltrates in the right lower lung, and right upper abdominal ascites. 3. Calcified gallstones. David Blunt MD Physical Exam HEENT: PERRL; normocephalic; atraumatic; no jaundice. CHEST: diminished CARDIAC: RRR ABDOMEN: Soft, nondistended, nontender; no hepatosplenomegaly; bowel sounds are present in all four quadrants. EXTREMITIES: No clubbing, cyanosis, or edema. SKIN: Normal; no rash; no jaundice. ENERGY PROJECT ENGINEER: No focal deficits; alert and oriented times three. (Mel Shannon [facility]) Assessment and Plan Plan - ascites - per CT, moderate effusions and pelvic ascites, 5cm AAA with soft tissue thickening, mesenteric induration. going for thoracentesis and paracentesis d/w CCM - Anemia, melena, heme positive stools. HH 6.1/18.3 on admission. PRBC x 2 and HH improved S/P EGD and colonoscopy found hiatal hernia, gastric ulcer, erosive gastritis , colon polyp - Hepatitis C, patient reports he is s/p treatment in 80s. LFT WNL. - thrombocytopenia - PLT decreasing, receiving PLT transfusion - Lung mass? Heavy tobacco use. Chest Xray 09/28/17--1. Mass versus loculated pleural fluid in the fissure of the right mid lung. CT of the chest is recommended, preferably with intravenous contrast. 2. Small free-flowing right pleural effusion at the base. 3. Left lung is clear. 4. Tortuous thoracic aorta. CT of chest loculated pleural effusion, bilat effusions, mild consolidative infiltrates, right upper abd ascites, gallstones - e coli bacteremia - ID consulted PLAN: - consider CTA - await paracentesis - await biopsy - check HCV quant - Monitor HH, transfuse as needed - Notify GI of active bleeding - Protonix IV BID - Supportive care - Further recommendations to follow based on results of above This pt seen by myself and Dr Dykes and this note is written on his behalf (Mel Shannon) Physician Comments Patient seen and examined Agree with above Continue with current supportive care Monitor labs Regarding the Escherichia coli bacteremia this is of unclear source at this point The ascites is probably multifactorial but we will await paracentesis results The mesenteric stranding is probably secondary to either an infection or just the hypoalbuminemia We will start albumin at this point Further recommendations shall depend on the results of the above and the hospital course (Domingo Dykes MD) Mel Shannon Oct 01, 2017 11:56 Domingo Dykes MD Oct 01, 2017 20:59
[2017-10-01 12:11] LABS: % SATURATION IRON PROFILE 51.9 % (20-50); IRON (FE) 56 MCG/DL (65-175); TOTAL IRON BINDING CAPACITY 108 MCG/DL (250-450)
[2017-10-01 12:36] LABS: FERRITIN 1246 NG/ML (26-388); FOLATE 2.2 NG/ML (3.1-17.5)
--- NOTE | 2017-10-01 12:37 | PD.ID.CON ---
History of Present Illness Service ID Consult Requested By Dr Pate Reason for Consult bacteremia Primary Care Physician No Primary Care Physician Diagnoses: History of Present Illness 66 yo male with Hep C presented wikth melena for a while and presented yday with Hb of 5 He told me that he felt sick, tired for about a month and noticed dark stools for about 1-2 mos He denies abd pain, endorses weight loss He apparently has no medical care and denies having any med illnesses except for hep C Pt became hypotensive and was admitted to the unit responded to IVF, did not require pressors He is stable and afebrile currently HIs CT findings include 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 with some soft tissue thickening about the aneurysm, moderate pleural effusions and moderate amount of abdominal pelvic ascites and calcified gallstone and CT showed loculated pleural effusion in the superior major fissure mall bilateral pleural effusions, mild consolidative infiltrates in the right lower lung, and right upper abdominal ascites, gallstones AAA 5 cm E.coli in blood urinalysis is not cw infection Review of Systems Except as stated in HPI: all other systems reviewed are Neg Past Family Social History Allergies: Coded Allergies: No Known Allergies (Unverified , 09/28/17) Past Medical History Hepatitis C- reports being treated back in the 80s Past Surgical History None Active Ordered Medications Medications where reviewed in EMR Antibiotics Include: shailesh jones Family History No family in [facility] or [place], reports only have 1 cousin in [place]. Has not talked to cousin in several years. Mom-DM Father- heavy smoker Social History Has been living in [facility] in a motel for 1 month, comes to [facility] every year during winter for the past 5 years Has smoked since he was 15, smokes 2ppd Drank alcohol in the past, said he stopped in his 20s Denies illicit drug use Physical Exam Vital Signs Vital Signs Date Time Temp Pulse Resp B/P (MAP) Pulse Ox O2 Delivery O2 Flow Rate FiO2 10/01/17 11:32 98.1 108 25 104/62 99 10/01/17 10:54 98.2 76 26 108/59 97 10/01/17 08:21 97 Nasal Cannula 2.00 10/01/17 06:00 66 10/01/17 04:00 67 10/01/17 04:00 98.0 69 20 93/51 (65) 99 10/01/17 02:00 68 10/01/17 00:00 98.0 75 20 107/59 (75) 97 10/01/17 00:00 75 09/30/17 22:00 65 09/30/17 20:00 98.0 77 20 114/64 (81) 96 09/30/17 20:00 77 09/30/17 19:00 96 Nasal Cannula 2.00 09/30/17 18:15 Nasal Cannula 2.00 09/30/17 18:15 85 09/30/17 18:15 99.2 88 24 110/61 (77) 96 09/30/17 13:07 84 09/30/17 12:09 79 09/30/17 12:00 97.4 79 18 104/58 (73) 96 Physical Exam CONSTITUTIONAL/GENERAL: This is a thin desheveled patient, in no apparent distress. TUBES/LINES/DRAINS: SKIN: No jaundice, rashes, or lesions. Skin temperature appropriate. Not diaphoretic. HEAD: Atraumatic. Normocephalic. EYES: Pupils equal and round and reactive. Extraocular motions intact. No scleral icterus. No injection or drainage. Fundi not examined. ENT: Hearing grossly normal. Nose without bleeding or purulent drainage. Throat without visible erythema, exudates, masses, or lesions. Oral mucosae moist, poor dentition NECK: Trachea midline. Supple, nontender. No palpable thyroid enlargement or nodularity. CARDIOVASCULAR: Regular rate and rhythm without murmurs, gallops, or rubs. No JVD. Peripheral pulses symmetric. Well perfused perifery RESPIRATORY/CHEST: Symmetric, unlabored respirations. Clear to auscultation. Breath sounds equal bilaterally. No wheezes, rales, or rhonchi. GASTROINTESTINAL: Abdomen soft, non-tender, nondistended at all. No hepato- splenomegaly, or palpable masses. No guarding. Bowel sounds present. GENITOURINARY: Without palpable bladder distension. Maynard catheter in place with slightly reddish urine MUSCULOSKELETAL: Extremities without clubbing, cyanosis, or edema. No joint tenderness or effusion noted. No calf tenderness. No mottling or clubbing. LYMPHATICS: No palpable cervical or supraclavicular adenopathy. NEUROLOGICAL: Awake and alert. Motor and sensory grossly within normal limits. Follows commands. Cognitively sharp. Moves all extremities. PSYCHIATRIC: No obvious anxiety/depression. no apparent hallucinations or other psychotic thought process. Laboratory Laboratory Tests Test 09/30/17 12:20 09/30/17 17:19 09/30/17 20:56 10/01/17 04:53 White Blood Count 2.6 2.7 Red Blood Count 3.10 3.22 Hemoglobin 9.9 10.1 Hematocrit 28.8 29.8 Mean Corpuscular Volume 92.7 92.8 Mean Corpuscular Hemoglobin 32.0 31.3 Mean Corpuscular Hemoglobin Concent 34.5 33.8 Red Cell Distribution Width 19.5 18.7 Platelet Count 40 33 Mean Platelet Volume 7.8 7.5 Neutrophils (%) (Auto) 67.7 70.9 Lymphocytes (%) (Auto) 27.3 22.4 Monocytes (%) (Auto) 4.7 6.4 Eosinophils (%) (Auto) 0.1 0.1 Basophils (%) (Auto) 0.2 0.2 Neutrophils # (Auto) 1.7 1.9 Lymphocytes # (Auto) 0.7 0.6 Monocytes # (Auto) 0.1 0.2 Eosinophils # (Auto) 0.0 0.0 Basophils # (Auto) 0.0 0.0 CBC Comment AUTO DIFF AUTO DIFF Differential Total Cells Counted 100 100 Neutrophils % (Manual) 64 85 Band Neutrophils % 2 1 Lymphocytes % 25 10 Monocytes % 9 4 Neutrophils # (Manual) 1.7 2.3 Nucleated Red Blood Cells 2 3 Differential Comment FINAL DIFF MANUAL FINAL DIFF MANUAL Platelet Estimate LOW LOW Platelet Morphology Comment NORMAL NORMAL Red Cell Morphology Comment NORMAL Blood Urea Nitrogen 16 13 Creatinine 0.44 0.29 Random Glucose 82 73 Total Protein 6.0 Albumin 1.7 Calcium Level 7.9 7.7 Alkaline Phosphatase 56 Aspartate Amino Transf (AST/SGOT) 13 Alanine Aminotransferase (ALT/SGPT) 8 Total Bilirubin 2.4 Sodium Level 140 142 Potassium Level 3.2 2.9 Chloride Level 102 106 Carbon Dioxide Level 31.3 30.4 Anion Gap 7 6 Estimat Glomerular Filtration Rate 193 312 Lactic Acid Level 1.5 Prothrombin Time 14.7 Prothromb Time International Ratio 1.5 Activated Partial Thromboplast Time 36.7 Fibrinogen 293 Toxic Granulation 1+ Ovalocytes 1+ Reticulocyte Count 2.1 Absolute Reticulocyte Count 67.4 Date/Time Source Procedure Growth Status 12/12/17 17:19 Blood Peripheral Aerobic Blood Culture - Preliminary NO GROWTH IN 1 DAY Resulted 09/30/17 17:19 Blood Peripheral Anaerobic Blood Culture - Preliminary NO GROWTH IN 1 DAY Resulted Result Diagram: 10/01/17 0453 10/01/17 0453 Imaging Last Impressions Chest X-Ray 09/30/17 0000 Signed Impressions: Service Date/Time: Saturday, September 30, 2017 04:23 - CONCLUSION: 1. There are new patchy partially consolidative infiltrates in the right infrahilar region. 2. Stable loculated fluid in the right major fissure and small left pleural effusion. David Blunt MD Abdomen/Pelvis CT 09/30/17 0000 Signed Impressions: Service Date/Time: Sunday, October 01, 2017 02:21 - CONCLUSION: 1. 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 2. Moderate pleural effusions and moderate amount of abdominal pelvic ascites. 3. 2 calcified gallstones. David Blunt MD Chest CT 09/28/17 0000 Signed Impressions: Service Date/Time: Friday, September 29, 2017 01:23 - CONCLUSION: 1. The dominant opacity seen on recent chest x-ray represents loculated pleural effusion in the superior major fissure. 2. Small bilateral pleural effusions, mild consolidative infiltrates in the right lower lung, and right upper abdominal ascites. 3. Calcified gallstones. David Blunt MD Assessment and Plan Assessment and Plan E.coli sepsis : source is likely GI ? SBP - ascites on scan, not painful however AAA, ? fistula Vascular surgeon consulted Symptomatic anemia from GI bleed Hypotension - resolved with IVF cont zosyn fu repeat blood clx fu peritoneal fluid Discussed Condition With Marleni Goncalves MD Oct 01, 2017 12:37
--- NOTE | 2017-10-01 13:13 | RADRPT ---
EXAM DATE/TIME: 10/01/2017 12:00 [facility] COMPARISON: CHEST SINGLE AP, September 30, 2017, 4:23. INDICATIONS : Follow up pleural effusion. MEDICAL HISTORY : Hepatitis C. SURGICAL HISTORY : None. ENCOUNTER: Subsequent ACUITY: 1 day PAIN SCORE: 0/10 LOCATION: Bilateral chest FINDINGS: A single view of the chest demonstrates left midlung and left basilar consolidation. Right basilar at electasis. Small left pleural effusion. Questionable tiny right apical pneumothorax. The cardiomedias tinal contours are unremarkable. Osseous structures are intact. CONCLUSION: 1. Questionable tiny right apical pneumothorax. 2. Minimal bibasilar atelectasis. 3. Left basilar density and small pleural effusion. Marc Alfredo MD on October 01, 2017 at 13:08 Board Certified Radiologist. This report was verified electronically.
--- NOTE | 2017-10-01 13:43 | RADRPT ---
EXAM DATE/TIME: 10/01/2017 13:22 [facility] COMPARISON: CHEST SINGLE AP, October 01, 2017, 12:00. CT THORAX W CONTRAST, September 29, 2017, 1:23. INDICATIONS : Post left side thoracentesis MEDICAL HISTORY : Hepatitis C. SURGICAL HISTORY : None. ENCOUNTER: Initial ACUITY: 3 days PAIN SCORE: 0/10 LOCATION: Bilateral chest FINDINGS: No significant pneumothorax. Near-total resolution of left-sided pleural effusion following thoracent esis. Mild residual airspace disease at the left lung base. Opacity in the mid right lung zone corres ponds to visual fluid on recent CT exam. Cardiomediastinal contours are stable. Remainder of exam is unchanged. CONCLUSION: 1. No significant pneumothorax with near resolution of left-sided pleural effusion following thoracen tesis. Rohan Leigh MD on October 01, 2017 at 13:35 Board Certified Radiologist. This report was verified electronically.
[2017-10-01] MEDS ORDERED: LIDOCAINE HCL 1% 20 ML VIAL ONE (14:09)
[2017-10-01 15:12] LABS: TOTAL PROTEIN,PERITONEAL FLUID 1.3 GM/DL; TOTAL PROTEIN,PLEURAL FLUID 1.1 GM/DL
--- NOTE | 2017-10-01 15:20 | RADRPT ---
EXAM DATE/TIME: 10/01/2017 09:53 [facility] COMPARISON: No previous studies available for comparison. INDICATIONS : Ascites. MEDICAL HISTORY : Tobacco use. Pleural effusion. Ascites. SURGICAL HISTORY : None. ENCOUNTER: Initial ACUITY: 1 day PAIN SCORE: 0/10 LOCATION: Right upper quadrant FLUID: Total volume of 1,100 cc of clear, yellow fluid was removed. Fluid was sent to lab for ordered studies. Post procedure scanning reveals no hematoma or other complication. TECHNIQUE: 1. Ultrasound guidance for abdominal paracentesis. 2. Paracentesis. The risks, benefits, and alternatives to ultrasound guided paracentesis were explained to the patient in detail including the risk of bleeding and infection. Written and verbal informed consent was obt ained. With the patient on the ultrasound table, ultrasound imaging was used to select the most appropriate approach for paracentesis. Overlying skin was prepped and draped in the usual sterile fashion and wi th a local anesthetic, a dermatotomy was made with an 11 blade scalpel. A 6 Serbian [id number] ca theter was introduced into the peritoneal cavity and fluid was collected. The patient tolerated the procedure well and left the ultrasound suite in stable condition. CONCLUSION: Uncomplicated ultrasound guided paracentesis. Marc Alfredo MD on October 01, 2017 at 15:17 Board Certified Radiologist. This report was verified electronically.
--- NOTE | 2017-10-01 15:21 | RADRPT ---
EXAM DATE/TIME: 10/01/2017 11:27 [facility] COMPARISON: No previous studies available for comparison. INDICATIONS : Left pleural effusion. MEDICAL HISTORY : Hepatitis C. Tobacco use. Pleural effusion. Ascites. SURGICAL HISTORY : None. ENCOUNTER: Initial ACUITY: 2 days PAIN SCORE: 0/10 LOCATION: Left chest FLUID: Total volume of 750 cc of clear, dark yellow fluid was removed. Fluid was sent to lab for ordered studies. TECHNIQUE: 1. Ultrasound guidance for thoracentesis. 2. Thoracentesis. The risks, benefits, and alternatives to ultrasound guided thoracentesis were explained to the patien t in lay simple terms, including the risk of bleeding and infection. Written and verbal informed con sent was obtained. Appropriate area for thoracentesis was marked under ultrasound guidance with the patient in the uprig ht position. Overlying skin was prepped and draped in the usual sterile fashion and with local anest hetic, a dermatotomy was made with an 11 blade scalpel. A 6 [place] thoracentesis catheter was placed in the pleural space and fluid was removed. Catheter was then removed and a sterile dressing applie d. There were no immediate complications. The patient tolerated the procedure well and the left the ultrasound suite in stable condition. Chest radiograph is to be obtained. CONCLUSION: Uncomplicated ultrasound guided thoracentesis. Marc Alfredo MD on October 01, 2017 at 15:19 Board Certified Radiologist. This report was verified electronically.
--- NOTE | 2017-10-01 15:33 | ECHRPT ---
Indication: asses LV function CONCLUSIONS The left ventricular systolic function is normal with an estimated ejection fraction in the range of 60-65%. Mild concentric left ventricular hypertrophy. Normal left ventricular size. BP: / HR: 80 Rhythm: Other MEASUREMENTS (Male / Female) Normal Values Technical Quality:Fair 2D ECHO LV Diastolic Diameter PLAX 4.6 cm 4.2 - 5.9 / 3.9 - 5.3 cm LV Systolic Diameter PLAX 3.4 cm IVS Diastolic Thickness 1.3 cm 0.6 - 1.0 / 0.6 - 0.9 cm LVPW Diastolic Thickness 1.3 cm 0.6 - 1.0 / 0.6 - 0.9 cm LV Relative Wall Thickness 0.6 LVOT Diameter 1.9 cm LA Systolic Diameter LX 3.2 cm 3.0 - 4.0 / 2.7 - 3.8 cm M-MODE Aortic Root Diameter MM 3.2 cm AV Cusp Separation MM 2.0 cm DOPPLER AV Peak Velocity 156.0 cm/s AV Peak Gradient 9.7 mmHg LVOT Peak Velocity 153.0 cm/s LVOT Peak Gradient 9.4 mmHg AV Area Cont Eq pk 2.8 cm Mitral E Point Velocity 84.9 cm/s Mitral A Point Velocity 53.8 cm/s Mitral E to A Ratio 1.6 LV E' Lateral Velocity 11.8 cm/s Mitral E to LV E' Lateral Ratio 7.2 LV E' Septal Velocity 10.5 cm/s Mitral E to LV E' Septal Ratio 8.1 PV Peak Velocity 110.0 cm/s PV Peak Gradient 4.8 mmHg FINDINGS LEFT VENTRICLE The left ventricular systolic function is normal with an estimated ejection fraction in the range of 60-65%. Mild concentric left ventricular hypertrophy. Normal left ventricular size. RIGHT VENTRICLE Normal right ventricular size and systolic function. LEFT ATRIUM The left atrial size is normal. RIGHT ATRIUM The right atrial size is normal. ATRIAL SEPTUM Normal atrial septal thickness without atrial level shunting by limited color doppler interrogation. AORTA The aortic root and proximal ascending aorta are normal in size on limited imaging. MITRAL VALVE Structurally normal mitral valve. No mitral valve stenosis or regurgitation. AORTIC VALVE Trileaflet aortic valve. No aortic valve stenosis or regurgitation. TRICUSPID VALVE Structurally normal tricuspid valve. No tricuspid valve stenosis or regurgitation. PULMONARY VALVE The pulmonary valve is not well visualized. VESSELS The inferior vena cava is normal in size. PERICARDIUM No pericardial effusion. Rochelle Haney MD, FACC (Electronically Signed) Final Date:01 October 2017 15:32
[2017-10-01 15:53] LABS: PLEURAL FLUID LYMPHS 7 %; PLEURAL FLUID MESOTHELIAL 1 %; PLEURAL FLUID MONOS 12 %; PLEURAL FLUID POLYS (SEGS) 80 %
[2017-10-01 16:11] LABS: PERITONEAL HISTIOCYTES 1 %; PERITONEAL LYMPHS 4 %; PERITONEAL MONOS 5 %; PERITONEAL POLYS(SEGS) 90 %
[2017-10-01 16:17] LABS: PLEURAL FLUID RBC 821 /MM3 (0-0); PLEURAL FLUID WBC 480 /MM3 (0-10)
[2017-10-01 16:18] LABS: PERITONEAL RBC 300 /MM3 (0-0)
[2017-10-01] MEDS ORDERED: IOHEXOL 350 MG/ML 10 ML VIAL (for RAD DIAG) IVCONTRAST ONE (17:15)
--- NOTE | 2017-10-01 18:06 | RADRPT ---
EXAM DATE/TIME: 10/01/2017 17:11 [facility] COMPARISON: No previous studies available for comparison. INDICATIONS : Evaluate for aortic aneurysm, hepatic vein thrombosis, portal vein thrombosis. IV CONTRAST: 84 cc Omnipaque 350 (iohexol) IV RADIATION DOSE: 15.87 CTDIvol (mGy) MEDICAL HISTORY : Hepatitis C. SURGICAL HISTORY : None. ENCOUNTER: Initial ACUITY: 1 day PAIN SCALE: 5/10 LOCATION: abdomen TECHNIQUE: Volumetric scanning was performed using a multi-row detector CT scanner. The data was post processed with a variety of visualization algorithms including full volume maximum intensity projection, multi -planar sliding thin slab reformation, curved planar reformation, and surface rendering techniques. Using automated exposure control and adjustment of the mA and/or kV according to patient size, radiat ion dose was kept as low as reasonably achievable to obtain optimal diagnostic quality images. DICOM format image data is available electronically for review and comparison. FINDINGS: LUNGS: Chronic interstitial and chronic airway disease are noted. Peripheral interstitial thickening as well as bronchial wall thickening are noted in both lungs. The lungs are hyperinflated. Consolidating air space disease identified in both lung bases. There are small bilateral parapneumonic effusions. Effus ion on the right is tracking into the interlobar fissure. MEDIASTINUM: No abnormally enlarged lymph nodes by CT criteria. No axillary or hilar abnormalities are identified. Coronary arteries are heavily calcified. ABDOMEN: The liver appears heterogeneous and has a lobulated contour. Portal vein is patent. Hepatic veins are unremarkable. There is no evidence of hepatic venous stenosis or occlusion. No focal lesions are karrie ntified. Calcified gallstones are noted. Small to moderate amount of free fluid is identified in the abdomen. PELVIS: Moderate free fluid is identified in the pelvis. The sigmoid demonstrate some mild edematous changes. There is wall thickening and mucosal stratification. THORACIC AORTA: The thoracic aorta contains eccentric calcified plaque. There is 2 vessel origin the great vessels wi th a bovine arch. Thoracic aorta is normal caliber without evidence of aneurysmal enlargement, ulcera eleni plaques or stenosis. ABDOMINAL AORTA: Advanced atherosclerotic disease is seen in the abdominal aorta. Calcified plaque is noted throughout . There is aneurysmal enlargement of the infrarenal abdominal aorta which begins approximately 3 cm d istal to the renal arteries and terminates approximately 2.3 cm above the aortoiliac bifurcation. Ane urysm reaches a maximum diameter of 7.3 cm. The aneurysm has a laminated appearance. There are 2 discrete layers beyond the true lumen. Conc entric mural thrombus is identified which is outlined by calcification. A second surrounding hypodens e collection is identified external to the calcified wall. Delayed imaging demonstrates mild enhancem ent of this area. PELVIC VESSELS: Significant calcified plaque is present throughout the iliac vessels. The common iliac arteries are h eavily calcified but not aneurysmal. CONCLUSION: 1. 7.3 cm infrarenal abdominal aortic aneurysm with laminated wall as described above. Findings sugge st a contained rupture which may be chronic and possible associated aortic wall inflammation indicati ng aortitis. 2. Chronic liver disease characteristic of cirrhosis. 3. Splenomegaly 4. Cholelithiasis 5. Moderate ascites 6. No evidence of portal vein thrombosis or Budd-Chiari syndrome. 7. COPD with bibasilar airspace disease and parapneumonic effusions. 1. Herve Berumen MD on October 01, 2017 at 17:43 Board Certified Radiologist. This report was verified electronically.
[2017-10-01] MEDS: ALBUMIN 25% INJ 100 ML IV SCH (21:27)
--- NOTE | 2017-10-01 22:25 | MB ---
cc: JAMEE REYNOSO MD DATE OF CONSULTATION 10/01/[address] Parra REASON FOR CONSULTATION Abdominal aortic aneurysm 7.3 cm in diameter. HISTORY OF THE PRESENT ILLNESS This 66-year-old male was admitted to the hospital with severe anemia after he had a syncopal episode at home and probably laid there for awhile. The patient was found to have bleeding gastric ulcer and in the process of workup was found to have a large abdominal aortic aneurysm measuring about 7 cm in diameter. Question arises about any further issues there. Upon arrival patient is noted to be emaciated, weak with bilateral pleural effusions Diarrhea and positive blood cultures consistent with sepsis PAST MEDICAL HISTORY Is that of: 1. Hepatitis C. 2. And probably liver cirrhosis. PAST SURGICAL HISTORY The patient denies. SOCIAL HISTORY He smokes two packs a day for about 50 years. States he stopped drinking in the 20s. Denies using drugs. PHYSICAL EXAMINATION GENERAL: Physical examination reveals a thin, emaciated appearing 66-year-old gentleman in no acute distress. Very poor historian. HEENT: Normocephalic. No trauma to the head. Pupils are equal, reactive. Extraocular muscles intact. NECK: Bilateral carotid pulses. CHEST: Bilateral breath sounds decreased over both lungs consistent with advanced COPD. HEART: Regular rhythm. ABDOMEN: Soft. Active bowel sounds. On palpation the patient has a large epigastric mass between the xyphoid and the umbilical consistent with a large abdominal aortic aneurysm. The patient is not tender. EXTREMITIES: The patient has palpable femoral pulses. Palpable dorsalis pedis and posterior tibial pulses. BACK: Is normal. He has a small sacral ulcer in the area. NEUROLOGIC: The patient is fully intact. However, he is slightly confused and although he is oriented in time and space he is a very poor historian. IMPRESSION AND RECOMMENDATIONS Patient with upper GI bleed from a gastric ulcer confirmed by endoscopy. At this point the patient has numerous comorbidities and problems. The aneurysm as such is very large and is at risk of rupturing any time. On the other hand, the patient has a recently bleeding gastric ulcer and would be a pretty bad candidate for anticoagulation. In addition patient has positive blood cultures form unknown source probably intestine and therefore there is no question that patient cannot have any graft or artificial material placed at this time. Therefore it is imperative that the ulcer is allowed to heal remainder medical problems be handled inpatient be infection free before we proceed with any procedure. Critical care time 40 minutes. Jamee CARRILLO/SHADIA /6:42 PM /10:07 PM [id number]
[2017-10-01 22:38] LABS: ALBUMIN 1.5 GM/DL (3.4-5.0); DIRECT BILIRUBIN ADULT 0.9 MG/DL (0.0-0.2); INDIRECT BILIRUBIN 0.6 MG/DL (0.0-0.8); TOTAL BILIRUBIN ADULT 1.5 MG/DL (0.2-1.0); TOTAL PROTEIN 5.8 GM/DL (6.4-8.2)
[2017-10-02] VITALS (14 sets, daily range): BP systolic 89–108; BP diastolic 54–66; PULSE 67–95; RESP 19–27; TEMP 98–98.7; O2SAT 94–96
[2017-10-02] MEDS: PANTOPRAZOLE SODIUM 40 MG VIAL IV PUSH SCH ×2 (02:12→14:25)
[2017-10-02] MEDS: PIPERACIL-TAZO 4.5 GM PREMIX 100 ML IV SCH ×2 (04:02→09:10)
[2017-10-02] MEDS: ALBUMIN 25% INJ 100 ML IV SCH ×3 (05:38→21:01)
--- NOTE | 2017-10-02 06:06 | MB ---
cc: BRENDA SHINE M.D. DATE OF CONSULTATION October 01, [address] Parra REASON FOR CONSULTATION Hematology was consulted to render opinion guarding patient with pancytopenia and failure to thrive. HISTORY OF PRESENT ILLNESS The patient is a 66-year-old male brought into the hospital after he fell down. He lives in [place] and usually spends his winter in [place]. He stays in a motel. He stated that about five weeks ago he started having abdominal pain. He used to take aspirin. He started taking aspirin daily and abdominal pain seems to have improved. A day prior to presentation he became very weak. He fell on his knee and stayed on the ground until his landlady found him next day. He was brought into the emergency room and found to have profound anemia, hemoglobin of 6.5. He also was having black stool for at least a month on and off. He had GI workup which did not show any active bleeding. He later had E-coli bacteremia and sepsis. He was then transferred to the intensive care unit. He was noted to have pancytopenia. He has had a history of hepatitis C diagnosed in the eighties. He thinks he had treatment but he is not sure. He denies any fever or chills. He has gradually lost weight over the last three years. He lost about 90 pounds. He denies any chest pressure or palpitation. He denies any shortness of breath or cough. He denies any nausea, vomiting, abdominal pain at this time. He denies any dysuria or hematuria. He just feels weaker. PAST MEDICAL HISTORY Hepatitis C. He denies any coronary disease or kidney disease. PAST SURGICAL HISTORY None. FAMILY HISTORY He has no siblings or children. Mother had diabetes. No family history of cancer that he knows of. SOCIAL HISTORY Smoked two packs a day since age 15. He quit alcohol. ALLERGIES No known drug allergies. CURRENT MEDICATIONS 1. Azithromycin. 2. Zosyn. 3. Collagenase. 4. Protonix. REVIEW OF SYSTEMS CONSTITUTIONAL: As above, negative. ENT: Negative. CARDIOVASCULAR: Denies chest pressure, palpitations. RESPIRATORY: Denies significant shortness of breath or cough. GI: As above. : Negative. MUSCULOSKELETAL: Negative. HEMATOLOGY: As above. ENDOCRINE: Negative. DERMATOLOGY: Negative. PSYCHIATRIC: Negative. NEUROLOGIC: Negative. PHYSICAL EXAMINATION VITALS: Temperature 98.2, blood pressure 102/55, O2 saturation 96% on 2 liters nasal cannula. GENERAL: He is alert and oriented x3. He looks cachectic. HEENT: Atraumatic, normocephalic. Pupils equal, round and reactive to light. Extraocular muscles intact. No scleral icterus. Oropharynx - dry mucosa. NECK: No thyromegaly. No palpable masses. LYMPHATICS: No palpable cervical, clavicular, axillary or inguinal lymph nodes. CARDIOVASCULAR: Regular S1-S2. No murmur. LUNGS: Decreased breath sounds left lung base. ABDOMEN: Soft, a little distended. Could not palpate liver or spleen, nontender. EXTREMITY EXAM: 2+ lower extremity edema. SCDs in place. No calf tenderness. SKIN: A little small black mole under his left eye. NEUROLOGIC: Exam nonfocal. LABORATORY DATA WBC 2.7, hemoglobin 10.1, MCV of 92, platelet count 33,000. Haptoglobin 119, ferritin 1246, percent saturation 51. ASSESSMENT 1. Pancytopenia which I think is due to cirrhosis and splenomegaly. He has a history of hepatitis C diagnosed in the . He thinks he had treatment but he is not sure. His CT angiogram showed a cirrhotic-appearing liver with splenomegaly and moderate ascites. It think he likely has baseline pancytopenia due to cirrhosis and splenomegaly. He may have further drop in the white blood cell and platelet count due to recent sepsis. He had GI bleed and profound anemia when he first presented. Since transfusion his hemoglobin has been stable. 2. GI bleed likely due NSAID use. He has been using daily aspirin and Advil. He came in with a hemoglobin of 6.5. He had 3 units of packed red blood cell transfusion. Upper endoscopy showed clean-based gastric ulcer and gastritis. No active bleeding noted. Hemoglobin is stable since transfusion. 3. History of hepatitis C as above. It is unclear if he is in remission. CT showed cirrhotic liver. We will check alpha-fetoprotein 4. Ascites. He had paracentesis with removal of 1100 cc of yellow fluid. This appeared due to portal hypertension. 5. Left pleural effusion. He had thoracentesis with removal of 750 cc of dark yellow fluid. The fluid appeared to be transudative. 6. Infrarenal abdominal aortic aneurysm. He may have a contained rupture on the CT angiogram. Awaiting vascular evaluation. 7. Elevated ferritin level. I think this is due to underlying cirrhosis. I doubt that he has hereditary hemochromatosis. RECOMMENDATIONS 1. Check a hepatitis panel, alpha-fetoprotein, and HFE mutation study. 2. Monitor CBC. Thank you Dr. Parra for asking me to see this patient. MD PAVEL Contreras/BENJAMIN /7:51 PM /5:33 AM MTDKolby
[2017-10-02 07:03] LABS: BASOPHIL % 0.1 % (0.0-2.0); EOSINOPHIL % 0.3 % (0.0-4.0); HEMATOCRIT 24.2 % (39.0-51.0); HEMOGLOBIN 8.4 GM/DL (13.0-17.0); LYMPH % 31.9 % (9.0-44.0); LYMPHOCYTE # 0.5 TH/MM3 (1.0-4.8); MEAN CELL VOLUME 93.8 FL (80.0-100.0); MEAN CORPUSCULAR HEMOGLOBIN 32.7 PG (27.0-34.0); MEAN CORPUSCULAR HGB CONC 34.8 % (32.0-36.0); MONO % 6.6 % (0.0-8.0); MONOCYTE # 0.1 TH/MM3 (0-0.9); NEUT % 61.1 % (16.0-70.0); PLATELET COUNT 48 TH/MM3 (150-450); RED BLOOD COUNT 2.59 MIL/MM3 (4.50-5.90); RED CELL DISTRIBUTION WIDTH 18.6 % (11.6-17.2); WHITE BLOOD COUNT 1.6 TH/MM3 (4.0-11.0)
[2017-10-02 07:13] LABS: ALBUMIN 1.9 GM/DL (3.4-5.0); AST (GOT) 12 U/L (15-37); BICARBONATE 30.9 MEQ/L (21.0-32.0); BLOOD UREA NITROGEN 13 MG/DL (7-18); CALCIUM 7.7 MG/DL (8.5-10.1); CHLORIDE 106 MEQ/L (98-107); CREATININE 0.32 MG/DL (0.60-1.30); GLOMERULAR FILTRATION RATE 278 ML/MIN (>89); GLUCOSE,RANDOM 91 MG/DL (74-106); SODIUM (NA) 142 MEQ/L (136-145)
[2017-10-02 07:29] LABS: ALKALINE PHOSPHATASE 48 U/L (45-117); ALT (GPT) 12 U/L (12-78); TOTAL BILIRUBIN ADULT 1.8 MG/DL (0.2-1.0); TOTAL PROTEIN 5.6 GM/DL (6.4-8.2)
[2017-10-02 08:15] LABS: CA 19-9 23.5 U/ML (0.0-35.0)
[2017-10-02 08:26] LABS: LYMPHOCYTES 27 % (9-44); MONOCYTES 5 % (0-8); NEUTROPHIL # MANUAL DIFF 1.1 TH/MM3 (1.8-7.7); PLASMA CELLS 1 % (0-0); POLYS (SEG NEUTROPHILS) 67 % (16-70)
[2017-10-02] MEDS: SODIUM CHLORIDE 0.9% FLUSH 10 ML FLUSH IV FLUSH SCH ×2 (09:00→21:01)
[2017-10-02] MEDS: AZITHROMYCIN 250 MG TAB PO SCH (09:09)
--- NOTE | 2017-10-02 09:24 | HHI.FPPN ---
Subjective Remarks No acute events overnight. Pt lying in bed this morning, reports that he still feels fatigue and weak. However, he does not have pain. He is frustrated because his glasses broke and he is unable to watch TV well. Pt reports that he is still having diarrhea, unsure if it's black and tarry. Denies CP, SOB, abdominal pain, and N/V. Afebrile. Catheter in place. Currently on 2L O2 NC. Objective Vitals Vital Signs Date Time Temp Pulse Resp B/P (MAP) Pulse Ox O2 Delivery O2 Flow Rate FiO2 10/02/17 06:00 67 10/02/17 04:00 98.2 79 19 102/56 (71) 94 10/02/17 04:00 79 10/02/17 02:00 78 10/02/17 00:00 76 10/02/17 00:00 98.0 76 25 89/55 (66) 96 10/01/17 22:00 76 10/01/17 20:00 77 10/01/17 20:00 98.2 77 23 98/59 (72) 98 10/01/17 20:00 98 Nasal Cannula 3.00 10/01/17 19:00 96 Nasal Cannula 2.00 10/01/17 16:00 98.2 77 20 102/55 (71) 100 10/01/17 12:00 98.1 84 22 106/64 (78) 96 10/01/17 11:32 98.1 108 25 104/62 99 10/01/17 10:54 98.2 76 26 108/59 97 I/O 10/01/17 10/01/17 10/01/17 10/02/17 10/02/17 10/02/17 06:59 14:59 22:59 06:59 14:59 22:59 Intake Total 240 ml 582 ml 650 ml 400 ml Output Total 200 ml 550 ml 400 ml Balance 40 ml 582 ml 100 ml 0 ml Intake Oral 240 ml 300 ml IV Total 100 ml 350 ml 200 ml Albumin 200 ml Platelets 442 ml Blood Product IV Normal Saline Flush 40 ml Output Urine Total 200 ml 550 ml 400 ml # Voids 2 # Bowel Movements 2 1 2 Result Diagram: 10/02/17 0506 10/02/17 0506 Objective Remarks O. CONSTITUTIONAL/GEN: Cachectic male, pale and weak, appearing >> stated age. EYES: conjunctiva very pale, PERRLA, EOMI. ENT: Mouth and pharynx show moist MM, upper teeth missing, many lower teeth absent, those remaining are in poor repair.. NECK: Supple LUNGS: Coarse breath sounds throughout CARDIOVASCULAR: RR without murmur or gallop. 1+ edema to knee bilaterally. GI/ABD: soft without masses, without organomegaly. Widened abdominal aorta. NEURO: No focal deficits. SKIN: color very pale, lichenification both ankles, sacral wound unstagable, 3cm x 6cm HEME/LYMPH: no bruising, petechia or significant adenopathy MUSC: back is normal in appearance. PSYCH/MENTAL STATUS: Alert and oriented x 3. A/P Assessment and Plan 66 yr old M Hep C, hx of heavy smoking (2ppd for 61 yrs), and chronic aspirin use presented to the ED with anemia and black tarry stools secondary to suspected GI bleed. Patient found to be bacteremic. Blood cultures 09/29 - preliminary positive for E.coli. Patient transferred to ICU 09/30. Currently being managed by critical care. Discharge Planning Case Management. Unclear timetable. Problem List: (1) Bacteremia ICD Codes: R78.81 - Bacteremia Status: Acute Plan: Preliminary blood cultures 09/29 positive for E.coli Patient transfer to ICU on 09/30 for further care due to bacteremia Critical Care consulted and currently managing * CT abd/pelvis w/o contrast done 09/30 revealed moderate size left pleural effusion, ascites, 5cm infrarenal abdominal aortic aneurysm and mesenteric stranding. * CTA 10/01 7.3 cm AAA, contained reputure, cirrhosis, splenomegaly, cholelithiasis, moderate ascites, no evident of protal vein thrombosis or Budd- Chiari syndrome, COPD with bibasilar airspace disease and parapneumonic effusions * LF 70cc/hr, watch for hypotension * 2-D echo ordered to asses LV and RV function- 60-65% * Left pleural effusion- thoracentesis with removal of 750 cc of dark yellow fluid. Fluid appeared transudative. * Ascites- paracentesis with removal of 1100 cc of yellow fluids. This appeared due to portal hypertension. * Possibility of aortoenteric fistula GI reconsulted for mesenteric stranding and ascites, appreciate recommendations * Upper endoscopy showed clean-based gastric ulcer and gastritis. No active bleeding. * Duo/stomach biopsy- Stomach, reactive/chemical gastropathy with intestinal metaplasia. Colon, sigmoid, adenomatous polyp * Check HCV quant- pending * Alpha-feto protein wnl * Elevated ferritin levels due to underlying cirrhosis most likely * Protonix IV BID * liver workup in progress, may need liver biopsy ID consulted, appreciate recommendations * E.coli ESBL sepsis, source is likely GI, questionable SBP * Started Ertapenem 1000 mg IV q24h (10/02) * Continue Azithromycin 250mg PO daily (10/01-10/04) History: Patient met sepsis criteria 09/29 due to tachycardic at 95-113 and hypotension 86/53 Lactic acid 1.4 09/29, Repeat lactic acid 1.5 s/p 500cc bolus of NS, MIVF 140mls/hr 09/29 Discontinued vancomycin 1,250mg IV q12h (09/29-10/01) Discontinued Zosyn 4.5 gm IV q6h (started 09/30-09/22) (2) AAA (abdominal aortic aneurysm) ICD Codes: I71.4 - Abdominal aortic aneurysm, without rupture Plan: CT abd/pelvis w/o contrast done 09/30 5cm infrarenal abdominal aortic aneurysm Aorta CTA 7.3 cm infrarenal AAA with laminated wall, contained rupture which may be chronic and possible associated aortic wall inflammation indicating aortitis Vascular surgery consulted, appreciate recs At this point patient has multiple problems preclusive of any endovascular intervention Continue to follow this time (3) Pancytopenia ICD Codes: D61.818 - Other pancytopenia Plan: WBC trending down since admission, Hb stable, plts trending down since admission 2 units of RBCS transfused 09/28, 1 unit of RBCs transfused 09/29, and 1 unit of RBCs transfused 09/30 1 unit of FFP transfused 09/30 1 unit of Leuk-redu pheresis plts transfused 10/01 prior to thoracentesis Hem/Onc consulted, appreciate recs * Likely has baseline pancytopenia due to cirrhosis and splenomegaly with further crop in the WBC and plt count due to recent sepsis * monitor CBC * Start daily folate (4) GI bleed ICD Codes: K92.2 - Gastrointestinal hemorrhage, unspecified Status: Acute Plan: Hb of 6.1 upon admission,1 month hx of black tarry stools, chronic aspirin use 2 units of RBCS transfused 09/28, 1 unit of RBCs transfused 09/29, and 1 unit of RBCs transfused 09/30 Hb improving Hemoccult performed by RN in ED on 09/28- positive GI consulted, recommendations appreciated * EGD/colonoscopy demonstrated hiatal hernia, gastric ulcer, erosive gastritis and colon polyp * Duo/stomach biopsy- Stomach, reactive/chemical gastropathy with intestinal metaplasia. Colon, sigmoid, adenomatous polyp * Protonix IV 40 mg IV q12h * Avoid NSAIDs and anticoagulation * EGD in 2 months * Colonoscopy in 2 years (5) Hepatitis C ICD Codes: B19.20 - Unspecified viral hepatitis C without hepatic coma Plan: Patient reports history of Hep C. Patient reports being treated in the s. LFTs wnl. alpha fetoprotein wnl Check HCV quant- pending (6) Abnormal chest x-ray ICD Codes: R93.8 - Abnormal findings on diagnostic imaging of other specified body structures Plan: Heavy smoker. Mass 2.51 x 3.86 found on CXR. Small free-flowing right pleural effusion at the base. CT revealed dominant opacity seen on recent CXR represents loculated pleural effusion in the superior major fissure. Small b/l pleural effusions, mild consolidative infiltrates in the right lower lung, and right upper abdominal ascites. Calcified gallstones. (7) Hypokalemia ICD Codes: E87.6 - Hypokalemia Plan: Potassium chloride 20-40meq IV PRN (8) RLAF (acute kidney injury) ICD Codes: N17.9 - Acute kidney failure, unspecified Plan: RALF secondary to dehydration BUN 28 and Cr 0.53 upon admission Improving Continue to monitor (9) Sacral wound ICD Codes: S31.000A - Unspecified open wound of lower back and pelvis without penetration into retroperitoneum, initial encounter Plan: Unstageable sacral wound, 3cm x 6cm Wound care consulted, recommendations appreciated 1) Cleanse sacral wound with normal saline,pat dry. 2) Apply skin prep to gibran wound 3) Santyl josé thick to wound bed 4) Cover with Maxorb 2 cut to fit. 5) Cover with dry dressing (boarder gauze) 6) Change dressing Daily (10) Nutrition, metabolism, and development symptoms ICD Codes: R63.8 - Other symptoms and signs concerning food and fluid intake Plan: Fluids: LR 70cc/hr Diet: Regular Basic Electrolytes: monitor and replace as needed Other: Case management consulted GI ppx: Protonix 40mg IV q12h DVT ppx: SCDs Problem Qualifiers (1) GI bleed: Qualified Codes: K92.2 - Gastrointestinal hemorrhage, unspecified Penelope Velasquez MD R1 Oct 02, 2017 09:24
[2017-10-02] MEDS ORDERED: diphenhydrAMINE HCL 2%/ZINC ACETATE 0.1% CREAM 30 APPLIC/30 GM TUBE TOPICAL PRN (10:00)
--- NOTE | 2017-10-02 10:33 | PD.CAR.PN ---
CVT Progress Note Subjective/Hospital Course: Patient with a large abdominal aortic aneurysm that would technically be amiable to endovascular reconstruction. Nonetheless patient has multiple medical problems including pancytopenia/sepsis with positive blood cultures bilateral pleural effusions and the significant weight loss with emaciation. Patient does not have a rupture contained are otherwise and there is an inflammatory component to the wall of the aneurysm At this point patient has multiple problems preclusive of any endovascular intervention Continue to follow this time Objective: Vital Signs Date Time Temp Pulse Resp B/P (MAP) Pulse Ox O2 Delivery O2 Flow Rate FiO2 10/02/17 06:00 67 10/02/17 04:00 98.2 79 19 102/56 (71) 94 10/02/17 04:00 79 10/02/17 02:00 78 10/02/17 00:00 76 10/02/17 00:00 98.0 76 25 89/55 (66) 96 10/01/17 22:00 76 10/01/17 20:00 77 10/01/17 20:00 98.2 77 23 98/59 (72) 98 10/01/17 20:00 98 Nasal Cannula 3.00 10/01/17 19:00 96 Nasal Cannula 2.00 10/01/17 16:00 98.2 77 20 102/55 (71) 100 10/01/17 12:00 98.1 84 22 106/64 (78) 96 10/01/17 11:32 98.1 108 25 104/62 99 10/01/17 10:54 98.2 76 26 108/59 97 Labs: Laboratory Tests Test 10/02/17 05:06 White Blood Count 1.6 TH/MM3 (4.0-11.0) Red Blood Count 2.59 MIL/MM3 (4.50-5.90) Hemoglobin 8.4 GM/DL (13.0-17.0) Hematocrit 24.2 % (39.0-51.0) Mean Corpuscular Volume 93.8 FL (80.0-100.0) Mean Corpuscular Hemoglobin 32.7 PG (27.0-34.0) Mean Corpuscular Hemoglobin Concent 34.8 % (32.0-36.0) Red Cell Distribution Width 18.6 % (11.6-17.2) Platelet Count 48 TH/MM3 (150-450) Mean Platelet Volume 8.0 FL (7.0-11.0) Neutrophils (%) (Auto) 61.1 % (16.0-70.0) Lymphocytes (%) (Auto) 31.9 % (9.0-44.0) Monocytes (%) (Auto) 6.6 % (0.0-8.0) Eosinophils (%) (Auto) 0.3 % (0.0-4.0) Basophils (%) (Auto) 0.1 % (0.0-2.0) Neutrophils # (Auto) 1.0 TH/MM3 (1.8-7.7) Lymphocytes # (Auto) 0.5 TH/MM3 (1.0-4.8) Monocytes # (Auto) 0.1 TH/MM3 (0-0.9) Eosinophils # (Auto) 0.0 TH/MM3 (0-0.4) Basophils # (Auto) 0.0 TH/MM3 (0-0.2) CBC Comment AUTO DIFF Differential Total Cells Counted 100 Neutrophils % (Manual) 67 % (16-70) Lymphocytes % 27 % (9-44) Monocytes % 5 % (0-8) Neutrophils # (Manual) 1.1 TH/MM3 (1.8-7.7) Differential Comment FINAL DIFF MANUAL Plasma Cells 1 % (0-0) Platelet Estimate LOW (NORMAL) Platelet Morphology Comment NORMAL (NORMAL) Blood Urea Nitrogen 13 MG/DL (7-18) Creatinine 0.32 MG/DL (0.60-1.30) Random Glucose 91 MG/DL (74-106) Total Protein 5.6 GM/DL (6.4-8.2) Albumin 1.9 GM/DL (3.4-5.0) Calcium Level 7.7 MG/DL (8.5-10.1) Alkaline Phosphatase 48 U/L (45-117) Aspartate Amino Transf (AST/SGOT) 12 U/L (15-37) Alanine Aminotransferase (ALT/SGPT) 12 U/L (12-78) Total Bilirubin 1.8 MG/DL (0.2-1.0) Sodium Level 142 MEQ/L (136-145) Potassium Level 3.1 MEQ/L (3.5-5.1) Chloride Level 106 MEQ/L (98-107) Carbon Dioxide Level 30.9 MEQ/L (21.0-32.0) Anion Gap 5 MEQ/L (5-15) Estimat Glomerular Filtration Rate 278 ML/MIN (>89) Tumor Marker Alpha Fetoprotein 1.2 NG/ML (0.5-8.0) Carcinoembryonic Antigen 1.0 NG/ML (0.2-5.0) CA 19-9 Antigen 23.5 U/ML (0.0-35.0) Prostate Specific Antigen 0.16 NG/ML (0.00-4.00) Result Diagram: 10/02/17 0506 10/02/17 0506 Jamee Hernandez MD Oct 02, 2017 10:33
[2017-10-02] MEDS: FOLIC ACID 1 MG TAB PO SCH (11:43)
[2017-10-02] MEDS: COLLAGENASE OINT 30 GM TUBE TOPICAL SCH (11:44)
--- NOTE | 2017-10-02 11:55 | HHI.GIFU ---
Subjective Remarks Pt resting in bed in NAD. No GI complaints. Per RN he is now DNR. (Mel Shannon) Objective Vitals I&O Vital Signs Date Time Temp Pulse Resp B/P (MAP) Pulse Ox O2 Delivery O2 Flow Rate FiO2 10/02/17 10:00 95 10/02/17 08:00 94 Nasal Cannula 2.00 10/02/17 08:00 83 10/02/17 08:00 98.0 84 20 98/66 (77) 94 10/02/17 07:40 94 Nasal Cannula 2.00 10/02/17 06:00 67 10/02/17 04:00 98.2 79 19 102/56 (71) 94 10/02/17 04:00 79 10/02/17 02:00 78 10/02/17 00:00 76 10/02/17 00:00 98.0 76 25 89/55 (66) 96 10/01/17 22:00 76 10/01/17 20:00 77 10/01/17 20:00 98.2 77 23 98/59 (72) 98 10/01/17 20:00 98 Nasal Cannula 3.00 10/01/17 19:00 96 Nasal Cannula 2.00 10/01/17 16:00 98.2 77 20 102/55 (71) 100 10/01/17 12:00 98.1 84 22 106/64 (78) 96 I/O 10/01/17 10/01/17 10/01/17 10/02/17 10/02/17 10/02/17 07:00 15:00 23:00 07:00 15:00 23:00 Intake Total 240 ml 582 ml 650 ml 400 ml Output Total 200 ml 550 ml 400 ml Balance 40 ml 582 ml 100 ml 0 ml Intake Oral 240 ml 300 ml IV Total 100 ml 350 ml 200 ml Albumin 200 ml Platelets 442 ml Blood Product IV Normal Saline Flush 40 ml Output Urine Total 200 ml 550 ml 400 ml # Voids 2 # Bowel Movements 2 1 2 Laboratory Laboratory Tests Test 10/01/17 12:00 10/01/17 13:10 10/02/17 05:06 Peritoneal Fluid WBC 290 Peritoneal Fluid RBC 300 Peritoneal Fluid Neutrophils 90 Peritoneal Fluid Lymphocytes 4 Peritoneal Fluid Monocytes 5 Peritoneal Fluid Histiocytes 1 Peritoneal Fluid Total Protein 1.3 Peritoneal Fluid Albumin 0.4 Peritoneal Fluid LDH 49 Peritoneal Fluid Glucose 87 Pleural Fluid pH 8.0 Pleural Fluid WBC 480 Pleural Fluid RBC 821 Pleural Fluid Neutrophils 80 Pleural Fluid Lymphocytes 7 Pleural Fluid Monocytes 12 Pleural Fluid Mesothelial Cells 1 Pleural Fluid Total Protein 1.1 Pleural Fluid LDH 83 Pleural Fluid Glucose 78 White Blood Count 1.6 Red Blood Count 2.59 Hemoglobin 8.4 Hematocrit 24.2 Mean Corpuscular Volume 93.8 Mean Corpuscular Hemoglobin 32.7 Mean Corpuscular Hemoglobin Concent 34.8 Red Cell Distribution Width 18.6 Platelet Count 48 Mean Platelet Volume 8.0 Neutrophils (%) (Auto) 61.1 Lymphocytes (%) (Auto) 31.9 Monocytes (%) (Auto) 6.6 Eosinophils (%) (Auto) 0.3 Basophils (%) (Auto) 0.1 Neutrophils # (Auto) 1.0 Lymphocytes # (Auto) 0.5 Monocytes # (Auto) 0.1 Eosinophils # (Auto) 0.0 Basophils # (Auto) 0.0 CBC Comment AUTO DIFF Differential Total Cells Counted 100 Neutrophils % (Manual) 67 Lymphocytes % 27 Monocytes % 5 Neutrophils # (Manual) 1.1 Differential Comment FINAL DIFF MANUAL Plasma Cells 1 Platelet Estimate LOW Platelet Morphology Comment NORMAL Blood Urea Nitrogen 13 Creatinine 0.32 Random Glucose 91 Total Protein 5.6 Albumin 1.9 Calcium Level 7.7 Alkaline Phosphatase 48 Aspartate Amino Transf (AST/SGOT) 12 Alanine Aminotransferase (ALT/SGPT) 12 Total Bilirubin 1.8 Sodium Level 142 Potassium Level 3.1 Chloride Level 106 Carbon Dioxide Level 30.9 Anion Gap 5 Estimat Glomerular Filtration Rate 278 Tumor Marker Alpha Fetoprotein 1.2 Carcinoembryonic Antigen 1.0 CA 19-9 Antigen 23.5 Prostate Specific Antigen 0.16 Date/Time Source Procedure Growth Status 09/30/17 17:19 Blood Peripheral Aerobic Blood Culture - Preliminary NO GROWTH IN 2 DAYS Resulted 09/30/17 17:19 Blood Peripheral Anaerobic Blood Culture - Preliminary NO GROWTH IN 2 DAYS Resulted 10/01/17 13:10 Fluid Pleural Fluid Fungal Smear - Final NO FUNGAL ELEMENTS SEEN. Resulted 10/01/17 13:10 Fluid Pleural Fluid Fungal Culture Pending Resulted Imaging Last Impressions Aorta CTA 10/01/17 4491 Signed Impressions: Service Date/Time: Sunday, October 01, 2017 17:11 - CONCLUSION: 1. 7.3 cm infrarenal abdominal aortic aneurysm with laminated wall as described above. Findings suggest a contained rupture which may be chronic and possible associated aortic wall inflammation indicating aortitis. 2. Chronic liver disease characteristic of cirrhosis. 3. Splenomegaly 4. Cholelithiasis 5. Moderate ascites 6. No evidence of portal vein thrombosis or Budd-Chiari syndrome. 7. COPD with bibasilar airspace disease and parapneumonic effusions. 1. Herve Breumen MD Thoracentesis Ultrasound 10/01/17 0000 Signed Impressions: Service Date/Time: Sunday, October 01, 2017 11:27 - CONCLUSION: Uncomplicated ultrasound guided thoracentesis. Marc Alfredo MD Cyst Biopsy Asp-Paracentesis US 10/01/17 0000 Signed Impressions: Service Date/Time: Sunday, October 01, 2017 09:53 - CONCLUSION: Uncomplicated ultrasound guided paracentesis. Marc Alfredo MD Chest X-Ray 10/01/17 0000 Signed Impressions: Service Date/Time: Sunday, October 01, 2017 13:22 - CONCLUSION: 1. No significant pneumothorax with near resolution of left-sided pleural effusion following thoracentesis. Rohan Leigh MD Abdomen/Pelvis CT 09/30/17 0000 Signed Impressions: Service Date/Time: Sunday, October 01, 2017 02:21 - CONCLUSION: 1. 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 2. Moderate pleural effusions and moderate amount of abdominal pelvic ascites. 3. 2 calcified gallstones. David Blunt MD Chest CT 09/28/17 0000 Signed Impressions: Service Date/Time: Friday, September 29, 2017 01:23 - CONCLUSION: 1. The dominant opacity seen on recent chest x-ray represents loculated pleural effusion in the superior major fissure. 2. Small bilateral pleural effusions, mild consolidative infiltrates in the right lower lung, and right upper abdominal ascites. 3. Calcified gallstones. David Blunt MD Physical Exam HEENT: PERRL; normocephalic; atraumatic; no jaundice. CHEST: diminished CARDIAC: RRR ABDOMEN: Soft, mild distended, nontender; no hepatosplenomegaly; bowel sounds are present in all four quadrants. EXTREMITIES: No clubbing, cyanosis, or edema. SKIN: Normal; no rash; no jaundice. PRICING MANAGER: No focal deficits; alert and oriented times three. (Mel Shannon) Assessment and Plan Plan - ascites - per CTA, moderate effusions and pelvic ascites, 5cm AAA with soft tissue thickening, mesenteric induration, cirrhosis. s/p paracentesis 1L fluid removed. SAAG 1.5 likely d/t portal HTN - Anemia, melena, heme positive stools. HH 6.1/18.3 on admission. PRBC x 2 and HH improved S/P EGD and colonoscopy found hiatal hernia, gastric ulcer, erosive gastritis , colon polyp - adenomatous polyp. 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 LFT WNL. HCV quant pending - thrombocytopenia - PLT improved after transfusion - Lung mass? Heavy tobacco use. Chest Xray 09/28/17--1. Mass versus loculated pleural fluid in the fissure of the right mid lung. CT of the chest is recommended, preferably with intravenous contrast. 2. Small free-flowing right pleural effusion at the base. 3. Left lung is clear. 4. Tortuous thoracic aorta. CT of chest loculated pleural effusion, bilat effusions, mild consolidative infiltrates, right upper abd ascites, gallstones s/p thoracentesis - e coli bacteremia - ID consulted unclear source PLAN: - await HCV quant - Monitor HH, transfuse as needed - Notify GI of active bleeding - Protonix IV BID - Supportive care - Further recommendations to follow based on results of above This pt seen by myself and Dr Dykes and this note is written on his behalf (Mel Shannon) Plan Patient seen and examined Agree with above Continue with current supportive care Monitor labs Regarding ascites the SAAG based on yesterday's albumin and yesterday's paracentesis would be 1.1 which is at borderline for portal hypertension versus other causes Liver workup is currently in progress and we may end up needing to pursue a liver biopsy to fully determine the situation (Domingo Dykes MD) Mel Shannon Oct 02, 2017 11:55 Domingo Dykes MD Oct 02, 2017 20:08
--- NOTE | 2017-10-02 12:28 | HHI.CCPN ---
Subjective Remarks/Hospital Course 09/30: 66 year-old male with a medical history significant for hepatitis C, heavy smoking history and chronic aspirin use was brought to the hospital a few days back with severe generalized weakness going on for a few days along with diarrhea and black tarry stools. Patient reportedly has been taking 2-3 baby aspirins daily for few years. He also uses Advil routinely per history of present illness. He has is extremely poor by mouth intake with last meal being 2 weeks prior to admission and had been drinking water and soda. He has been having some weight loss. Patient was admitted with severe anemia. He received 3 units PRBCs and subsequently underwent evaluation by GI with EGD and colonoscopy which revealed gastritis and clean based gastric ulcer with no evidence of active bleeding. Patient had hypotension yesterday and was diagnosed to have sepsis based on hypotension and tachycardia. He underwent blood cultures on 09/29 and was initiated on empiric antibiotic coverage with IV vancomycin and Zosyn as well as Zithromax. His blood cultures drawn on are growing out Escherichia coli 2 out of 2 sets. Today patient developed hypotension again and is being transferred to the ICU. Critical care consult requested by family medicine service. I evaluated the patient up on the floor while he was waiting for ICU transfer. At that time he was not in any acute distress. He complain of generalized weakness. He denied any nausea vomiting. He has chronic abdominal pain. He has also had chronic diarrhea for a few months however has not had any diarrhea since yesterday per his RN. He does have a chronic cough however does not have any worsening of his cough or breathing. He denies any dysuria or frequency of urination or hematuria. He has been in [facility] for a month at the [facility] where he comes down to live every year for a month or so. He denies any history of liver cirrhosis. He underwent a CT chest on admission on 09/28 due to abnormal chest x-ray and was found to have a loculated pleural effusion on the right and small bilateral effusions. History was obtained by reviewing records and discussion with patient and nursing staff. 10/01: Received a fluid bolus last evening and was transferred to the ICU. No hypotension since arrival to the ICU. He remains on 2 L nasal cannula overnight. Denies any nausea or abdominal discomfort. Denies any chest pain. Does not appear to be in any acute distress. Has not had any further melena or rectal bleeding or diarrhea. CT abdomen pelvis done on 09/30 revealed moderate size left pleural effusion, ascites, 5 cm infrarenal abdominal aortic aneurysm and mesenteric stranding. 10/02: Hematolgy workup in progress. No further GI bleeding. AAA noted; poor candidate for intervention at this time. Objective Vital Signs Date Time Temp Pulse Resp B/P (MAP) Pulse Ox O2 Delivery O2 Flow Rate FiO2 10/02/17 10:00 95 10/02/17 08:00 94 Nasal Cannula 2.00 10/02/17 08:00 98.0 20 98/66 (77) Intake and Output 10/02/17 10/02/17 10/03/17 08:00 16:00 00:00 Intake Total 400 ml Output Total 400 ml Balance 0 ml Result Diagram: 10/02/17 0506 10/02/17 0506 Imaging Last Impressions Chest X-Ray 09/30/17 0000 Signed Impressions: Service Date/Time: Saturday, September 30, 2017 04:23 - CONCLUSION: 1. There are new patchy partially consolidative infiltrates in the right infrahilar region. 2. Stable loculated fluid in the right major fissure and small left pleural effusion. David Blunt MD Abdomen/Pelvis CT 09/30/17 0000 Signed Impressions: Service Date/Time: Sunday, October 01, 2017 02:21 - CONCLUSION: 1. 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 2. Moderate pleural effusions and moderate amount of abdominal pelvic ascites. 3. 2 calcified gallstones. David Blunt MD Chest CT 09/28/17 0000 Signed Impressions: Service Date/Time: Friday, September 29, 2017 01:23 - CONCLUSION: 1. The dominant opacity seen on recent chest x-ray represents loculated pleural effusion in the superior major fissure. 2. Small bilateral pleural effusions, mild consolidative infiltrates in the right lower lung, and right upper abdominal ascites. 3. Calcified gallstones. David Blunt MD Objective Remarks Elderly male who appears poorly nourished, dishevelled,.laying in bed in no acute distress. HEENT/Neuro: Pallor present, No icterus, tongue moist, RENEE, Awake alert oriented 3, nonfocal grossly, moving all 4 extremities Neck: Supple. Chest/pulmonary: Air entry decreased bilaterally at bases, scattered rhonchi, minimal basilar crackles. Cardiovascular: S1-S2 regular no gallop or murmur. No JVD. GI/abdomen: Soft, nontender, bowel sounds present. Minimal distention noted. No organomegaly appreciated. Extremities: Warm bilaterally, no edema. Well perfused. A/P Assessment and Plan XT 6-year-old male with: Generalized weakness Sepsis Escherichia coli bacteremia Melena (resolved) Chronic diarrhea Loculated pleural effusion/ bilateral pleural effusions (left greater than right ) Ascites Mesenteric stranding Infrarenal abdominal aortic aneurysm Possible pneumonia Gallstones Plan: Neuro: Follow neuro status, pain medications prn. Cardiovascular: On maintenance IV fluid 70 cc per hour. Watch for hypotension. Consulted vascular surgery for 7 cm infrarenal AAA. 2-D echo ordered. Pulmonary: Supplemental O2 as needed, bronchodilators when necessary. Schedule for diagnostic and therapeutic left thoracentesis for further evaluation. GI/liver: Continue by mouth diet. Ordered ultrasound-guided paracentesis for further evaluation of ascites. GI reconsulted for mesenteric stranding and ascites. EGD and colonoscopy did not reveal source of blood loss. We'll discuss with GI/ vascular regarding possibility of aortoenteric fistula. ID: Positive blood cultures with Escherichia coli from 09/29. Continue IV Zosyn /Zithromax. Stop vancomycin IV. ID consult requested by family medicine service for further evaluation. Possible gallbladder source versus other intra- abdominal source versus possible pneumonia. Discussed with family medicine service to check PPD with anergy panel. Heme: Follow CBC. Worsening thrombocytopenia and leukopenia noted. One unit plasmapheresis platelets ordered prior to thoracentesis/paracentesis. Hematology consult requested in view of pancytopenia with unexplained weight loss with concern for underlying malignancy/bone marrow disorder. Ordered anemia workup to evaluate for iron/ B12/ folate deficiency/hemolysis/bone marrow issue. Endocrine: Watch for hyperglycemia, SSI for glycemic control if needed. Prophylaxis: PPI/SCDs. No heparin in view of recent GI bleeding and worsening thrombocytopenia till cleared by GI. Discussed with family medicine service, discussed with floor RNs. Critical care will continue to follow. Abram Miramontes MD Oct 02, 2017 12:28
--- NOTE | 2017-10-02 13:58 | PD.ONC.PN ---
Subjective Subjective Remarks Afebrile overnight. Patient fatigued. States he feels the same today that he felt yesterday. Objective Data Date Time Temp Pulse Resp B/P (MAP) Pulse Ox O2 Delivery O2 Flow Rate FiO2 10/02/17 12:00 98.0 81 20 108/60 (76) 96 10/02/17 12:00 81 10/02/17 10:00 95 10/02/17 08:00 94 Nasal Cannula 2.00 10/02/17 08:00 83 10/02/17 08:00 98.0 84 20 98/66 (77) 94 10/02/17 07:40 94 Nasal Cannula 2.00 10/02/17 06:00 67 10/02/17 04:00 98.2 79 19 102/56 (71) 94 10/02/17 04:00 79 10/02/17 02:00 78 10/02/17 00:00 76 10/02/17 00:00 98.0 76 25 89/55 (66) 96 10/01/17 22:00 76 10/01/17 20:00 77 10/01/17 20:00 98.2 77 23 98/59 (72) 98 10/01/17 20:00 98 Nasal Cannula 3.00 10/01/17 19:00 96 Nasal Cannula 2.00 10/01/17 16:00 98.2 77 20 102/55 (71) 100 10/02/17 10/02/17 10/02/17 07:00 15:00 23:00 Intake Total 400 ml Output Total 400 ml Balance 0 ml Result Diagram: 10/02/17 0506 10/02/17 0506 Laboratory Results Laboratory Tests Test 10/02/17 05:06 White Blood Count 1.6 TH/MM3 Red Blood Count 2.59 MIL/MM3 Hemoglobin 8.4 GM/DL Hematocrit 24.2 % Mean Corpuscular Volume 93.8 FL Mean Corpuscular Hemoglobin 32.7 PG Mean Corpuscular Hemoglobin Concent 34.8 % Red Cell Distribution Width 18.6 % Platelet Count 48 TH/MM3 Mean Platelet Volume 8.0 FL Neutrophils (%) (Auto) 61.1 % Lymphocytes (%) (Auto) 31.9 % Monocytes (%) (Auto) 6.6 % Eosinophils (%) (Auto) 0.3 % Basophils (%) (Auto) 0.1 % Neutrophils # (Auto) 1.0 TH/MM3 Lymphocytes # (Auto) 0.5 TH/MM3 Monocytes # (Auto) 0.1 TH/MM3 Eosinophils # (Auto) 0.0 TH/MM3 Basophils # (Auto) 0.0 TH/MM3 CBC Comment AUTO DIFF Differential Total Cells Counted 100 Neutrophils % (Manual) 67 % Lymphocytes % 27 % Monocytes % 5 % Neutrophils # (Manual) 1.1 TH/MM3 Differential Comment FINAL DIFF MANUAL Plasma Cells 1 % Platelet Estimate LOW Platelet Morphology Comment NORMAL Blood Urea Nitrogen 13 MG/DL Creatinine 0.32 MG/DL Random Glucose 91 MG/DL Total Protein 5.6 GM/DL Albumin 1.9 GM/DL Calcium Level 7.7 MG/DL Alkaline Phosphatase 48 U/L Aspartate Amino Transf (AST/SGOT) 12 U/L Alanine Aminotransferase (ALT/SGPT) 12 U/L Total Bilirubin 1.8 MG/DL Sodium Level 142 MEQ/L Potassium Level 3.1 MEQ/L Chloride Level 106 MEQ/L Carbon Dioxide Level 30.9 MEQ/L Anion Gap 5 MEQ/L Estimat Glomerular Filtration Rate 278 ML/MIN Tumor Marker Alpha Fetoprotein 1.2 NG/ML Carcinoembryonic Antigen 1.0 NG/ML CA 19-9 Antigen 23.5 U/ML Prostate Specific Antigen 0.16 NG/ML Culture Results Microbiology Date/Time Source Procedure Growth Status 09/30/17 17:19 Blood Peripheral Aerobic Blood Culture - Preliminary NO GROWTH IN 2 DAYS Resulted 09/30/17 17:19 Blood Peripheral Anaerobic Blood Culture - Preliminary NO GROWTH IN 2 DAYS Resulted 09/30/17 17:10 Blood Peripheral Aerobic Blood Culture - Preliminary NO GROWTH IN 2 DAYS Resulted 09/30/17 17:10 Blood Peripheral Anaerobic Blood Culture - Preliminary NO GROWTH IN 2 DAYS Resulted 10/01/17 13:10 Fluid Pleural Fluid Fungal Smear - Final NO FUNGAL ELEMENTS SEEN. Resulted 10/01/17 13:10 Fluid Pleural Fluid Fungal Culture Pending Resulted 10/01/17 13:10 Fluid Pleural Fluid Acid Fast Stain - Final NO ACID FAST BACILLI SEEN Resulted 10/01/17 13:10 Fluid Pleural Fluid Mycobacterial Culture Pending Resulted 10/01/17 13:10 Fluid Pleural Fluid Gram Stain - Final Resulted 10/01/17 13:10 Fluid Pleural Fluid Body Fluid Culture Pending Resulted Imaging Studies Last 24 hours Impressions Aorta CTA 10/01/17 2170 Signed Impressions: Service Date/Time: Sunday, October 01, 2017 17:11 - CONCLUSION: 1. 7.3 cm infrarenal abdominal aortic aneurysm with laminated wall as described above. Findings suggest a contained rupture which may be chronic and possible associated aortic wall inflammation indicating aortitis. 2. Chronic liver disease characteristic of cirrhosis. 3. Splenomegaly 4. Cholelithiasis 5. Moderate ascites 6. No evidence of portal vein thrombosis or Budd-Chiari syndrome. 7. COPD with bibasilar airspace disease and parapneumonic effusions. 1. Herve Berumen MD Administered Medications Medications (Trade) Dose Ordered Sig/Jailene Route PRN Reason Start Time Stop Time Status Last Admin Dose Admin Sodium Chloride (NS Flush) 2 ml BID IV FLUSH 09/28/17 13:45 10/01/17 20:54 Pantoprazole Sodium (Protonix Inj) 40 mg Q12H IV PUSH 09/28/17 14:00 10/02/17 02:12 Sodium Chloride 1,000 ml @ 140 mls/hr Q7H9M IV 09/28/17 18:00 Future Hold 09/30/17 02:56 Collagenase (Santyl Oint) 1 applic DAILY TOPICAL 09/29/17 12:45 10/02/17 11:44 Azithromycin (Zithromax) 250 mg DAILY PO 10/01/17 09:00 10/04/17 09:00 10/02/17 09:09 Piperacillin Sod/ Tazobactam Sod 100 ml @ 200 mls/hr Q6H IV 09/30/17 16:00 10/02/17 09:10 Diphenhydramine HCl (Benadryl) 25 mg Q4H PRN PO SEE LABEL COMMENTS 10/01/17 09:30 10/01/17 09:30 Potassium Chloride 100 ml @ 50 mls/hr Q2H PRN IV For Potassium 2.8 - 3.2 mEq/L 10/01/17 10:45 10/02/17 09:10 Albumin Human 100 ml @ 60 mls/hr Q8HR IV 10/01/17 22:00 10/04/17 23:00 10/02/17 05:38 Diphenhydramine HCl (Benadryl 2% Cream) 1 applic TID PRN TOPICAL ITCHING 10/02/17 10:00 10/02/17 10:23 Folic Acid (Folate) 1 mg DAILY PO 10/02/17 11:00 10/02/17 11:43 Objective Remarks GENERAL: Chronically ill appearing fellow lying supine in bed. He was sleeping on approach, but awakened with verbal stimuli. SKIN: Warm and dry. HEAD: Normocephalic. EYES: No injection or drainage. NECK: Supple, trachea midline. CARDIOVASCULAR: Regular rate and rhythm RESPIRATORY: scattered wheeze anteriorly GASTROINTESTINAL: Abdomen soft, non-tender, nondistended. EXTREMITIES: No cyanosis NEUROLOGICAL: No obvious focal deficit. Awake, alert, and oriented x3. Assessment/Plan Problem List: (1) Pancytopenia ICD Codes: D61.818 - Other pancytopenia Plan: --Pancytopenia due to cirrhosis and splenomegaly. --history of hepatitis C diagnosed in the . --CT angiogram showed cirrhotic-appearing liver with splenomegaly and moderate ascites. --likely has baseline pancytopenia due to cirrhosis and splenomegaly with further drop in the white blood cell and platelet count due to recent sepsis. (2) GI bleed ICD Codes: K92.2 - Gastrointestinal hemorrhage, unspecified Status: Acute Plan: --GI bleed likely due NSAID use. --Upper endoscopy showed clean-based gastric ulcer and gastritis. No active bleeding noted. (3) Hepatitis C ICD Codes: B19.20 - Unspecified viral hepatitis C without hepatic coma Plan: --History of hepatitis C --unclear if he is in remission. --CT showed cirrhotic liver. --alpha-fetoprotein WNL (4) Ascites ICD Codes: R18.8 - Other ascites Plan: --had paracentesis with removal of 1100 cc of yellow fluid. --appeared due to portal hypertension. (5) Pleural effusion ICD Codes: J90 - Pleural effusion, not elsewhere classified Plan: -- had thoracentesis with removal of 750 cc of dark yellow fluid. The fluid appeared to be transudative. (6) AAA (abdominal aortic aneurysm) ICD Codes: I71.4 - Abdominal aortic aneurysm, without rupture Plan: -- Infrarenal abdominal aortic aneurysm. -- may have a contained rupture on the CT angiogram. --vascular following Assessment 66y/o male with pancytopenia and failure to thrive. Hepatitis C. --Elevated ferritin level.-->likely due to underlying cirrhosis. doubt that he has hereditary hemochromatosis. Plan 1. monitor CBC 2. start daily folate 3. continue supportive care Attending Statement The exam, history, and the medical decision-making described in the above note were completed with the assistance of the mid-level provider. I reviewed and agree with the findings presented. I attest that I had a [id number] encounter with the patient on the same day, and personally performed and documented my assessment and findings in the medical record. Still weak. No bleeding noted. Labs showed low folate. Will start folate supplement. Pancytopenia likely due to cirrhosis/splenomegaly + sepsis. Tumor markers pending. HCV RNA pending. Problem Qualifiers (1) GI bleed: Qualified Codes: K92.2 - Gastrointestinal hemorrhage, unspecified Maria Elena Gómez Oct 02, 2017 13:58 Shaun Gerardo MD Oct 02, 2017 17:35
[2017-10-02] MEDS ORDERED: ASP: Documented ESBL, MDR A baumannii or P. aeruginosa PRN (14:15)
[2017-10-02] MEDS ORDERED: MISCELLANEOUS PHARMACY INFORMATION XX PRN (14:15)
[2017-10-02 15:00] LABS: AMYLASE BODY FLUID 29 U/L; AMYLASE BODY FLUID TYPE PLEURAL
[2017-10-02] MEDS: ERTAPENEM INJ 1,000 MG in SODIUM CHLORIDE 0.9% INJ 100 ML IV SCH (15:31)
[2017-10-02] MEDS ORDERED: MORPHINE SULFATE 4 MG/ML INJ IV PUSH PRN (17:45)
--- NOTE | 2017-10-02 18:56 | HHI.IDPN ---
Subjective Subjective Remarks co uncomfortable position in bed, o/w denies any complaints He is growing ESBL + E.coli in blood clx Aorta CTA showed 7.3 cm infrarenal abdominal aortic aneurysm with laminated wall, a contained rupture which may be chronic and possible associated aortic wall inflammation indicating aortitis along with liver cirrhosis, Splenomegaly and cholelithiasis Antibiotics Ertapenem Allergies: Coded Allergies: No Known Allergies (Unverified , 09/28/17) Objective . Vital Signs Date Time Temp Pulse Resp B/P (MAP) Pulse Ox O2 Delivery O2 Flow Rate FiO2 10/02/17 18:00 94 10/02/17 16:00 98.7 86 27 99/54 (69) 96 10/02/17 16:00 86 10/02/17 14:00 86 10/02/17 12:00 98.0 81 20 108/60 (76) 96 10/02/17 12:00 81 10/02/17 10:00 95 10/02/17 08:00 94 Nasal Cannula 2.00 10/02/17 08:00 83 10/02/17 08:00 98.0 84 20 98/66 (77) 94 10/02/17 07:40 94 Nasal Cannula 2.00 10/02/17 06:00 67 10/02/17 04:00 98.2 79 19 102/56 (71) 94 10/02/17 04:00 79 10/02/17 02:00 78 10/02/17 00:00 76 10/02/17 00:00 98.0 76 25 89/55 (66) 96 10/01/17 22:00 76 10/01/17 20:00 77 10/01/17 20:00 98.2 77 23 98/59 (72) 98 10/01/17 20:00 98 Nasal Cannula 3.00 10/01/17 19:00 96 Nasal Cannula 2.00 10/02/17 10/02/17 10/03/17 15:00 23:00 07:00 Intake Total 720 ml Output Total 400 ml Balance 320 ml Intake Oral 420 ml IV Total 300 ml Output Urine Total 400 ml . Laboratory Tests Test 10/01/17 04:53 10/02/17 05:06 White Blood Count 2.7 TH/MM3 1.6 TH/MM3 Red Blood Count 3.22 MIL/MM3 2.59 MIL/MM3 Hemoglobin 10.1 GM/DL 8.4 GM/DL Hematocrit 29.8 % 24.2 % Mean Corpuscular Volume 92.8 FL 93.8 FL Mean Corpuscular Hemoglobin 31.3 PG 32.7 PG Mean Corpuscular Hemoglobin Concent 33.8 % 34.8 % Red Cell Distribution Width 18.7 % 18.6 % Platelet Count 33 TH/MM3 48 TH/MM3 Mean Platelet Volume 7.5 FL 8.0 FL Neutrophils (%) (Auto) 70.9 % 61.1 % Lymphocytes (%) (Auto) 22.4 % 31.9 % Monocytes (%) (Auto) 6.4 % 6.6 % Eosinophils (%) (Auto) 0.1 % 0.3 % Basophils (%) (Auto) 0.2 % 0.1 % Neutrophils # (Auto) 1.9 TH/MM3 1.0 TH/MM3 Lymphocytes # (Auto) 0.6 TH/MM3 0.5 TH/MM3 Monocytes # (Auto) 0.2 TH/MM3 0.1 TH/MM3 Eosinophils # (Auto) 0.0 TH/MM3 0.0 TH/MM3 Basophils # (Auto) 0.0 TH/MM3 0.0 TH/MM3 CBC Comment AUTO DIFF AUTO DIFF Differential Total Cells Counted 100 100 Neutrophils % (Manual) 85 % 67 % Band Neutrophils % 1 % Lymphocytes % 10 % 27 % Monocytes % 4 % 5 % Neutrophils # (Manual) 2.3 TH/MM3 1.1 TH/MM3 Nucleated Red Blood Cells 3 /100 WBC Differential Comment FINAL DIFF MANUAL FINAL DIFF MANUAL Toxic Granulation 1+ Platelet Estimate LOW LOW Platelet Morphology Comment NORMAL NORMAL Ovalocytes 1+ Reticulocyte Count 2.1 % Absolute Reticulocyte Count 67.4 MIL/L Haptoglobin 119 MG/DL Plasma Cells 1 % Laboratory Tests Test 10/01/17 04:53 10/01/17 09:26 10/02/17 05:06 Blood Urea Nitrogen 13 MG/DL 13 MG/DL Creatinine 0.29 MG/DL 0.32 MG/DL Random Glucose 73 MG/DL 91 MG/DL Calcium Level 7.7 MG/DL 7.7 MG/DL Sodium Level 142 MEQ/L 142 MEQ/L Potassium Level 2.9 MEQ/L 3.1 MEQ/L Chloride Level 106 MEQ/L 106 MEQ/L Carbon Dioxide Level 30.4 MEQ/L 30.9 MEQ/L Anion Gap 6 MEQ/L 5 MEQ/L Estimat Glomerular Filtration Rate 312 ML/MIN 278 ML/MIN Iron Level 56 MCG/DL Total Iron Binding Capacity 108 MCG/DL Percent Iron Saturation 51.9 % Ferritin 1246 NG/ML Total Bilirubin 1.5 MG/DL 1.8 MG/DL Direct Bilirubin 0.9 MG/DL Indirect Bilirubin 0.6 MG/DL Aspartate Amino Transf (AST/SGOT) 10 U/L 12 U/L Alanine Aminotransferase (ALT/SGPT) 8 U/L 12 U/L Alkaline Phosphatase 52 U/L 48 U/L Lactate Dehydrogenase 170 U/L Total Protein 5.8 GM/DL 5.6 GM/DL Albumin 1.5 GM/DL 1.9 GM/DL Vitamin B12 Level 1432 PG/ML Folate 2.2 NG/ML Tumor Marker Alpha Fetoprotein 1.2 NG/ML Carcinoembryonic Antigen 1.0 NG/ML CA 19-9 Antigen 23.5 U/ML Prostate Specific Antigen 0.16 NG/ML Microbiology Date/Time Source Procedure Growth Status 09/30/17 17:19 Blood Peripheral Aerobic Blood Culture - Preliminary NO GROWTH IN 2 DAYS Resulted 09/30/17 17:19 Blood Peripheral Anaerobic Blood Culture - Preliminary NO GROWTH IN 2 DAYS Resulted 09/30/17 17:10 Blood Peripheral Aerobic Blood Culture - Preliminary NO GROWTH IN 2 DAYS Resulted 09/30/17 17:10 Blood Peripheral Anaerobic Blood Culture - Preliminary NO GROWTH IN 2 DAYS Resulted 10/01/17 13:10 Fluid Pleural Fluid Fungal Smear - Final NO FUNGAL ELEMENTS SEEN. Resulted 10/01/17 13:10 Fluid Pleural Fluid Fungal Culture Pending Resulted 10/01/17 13:10 Fluid Pleural Fluid Acid Fast Stain - Final NO ACID FAST BACILLI SEEN Resulted 10/01/17 13:10 Fluid Pleural Fluid Mycobacterial Culture Pending Resulted 10/01/17 13:10 Fluid Pleural Fluid Gram Stain - Final Resulted 10/01/17 13:10 Fluid Pleural Fluid Body Fluid Culture - Preliminary NO GROWTH IN 24 HOURS. Resulted Imaging Last Impressions Aorta CTA 10/01/17 [id number] Signed Impressions: Service Date/Time: Sunday, October 01, 2017 17:11 - CONCLUSION: 1. 7.3 cm infrarenal abdominal aortic aneurysm with laminated wall as described above. Findings suggest a contained rupture which may be chronic and possible associated aortic wall inflammation indicating aortitis. 2. Chronic liver disease characteristic of cirrhosis. 3. Splenomegaly 4. Cholelithiasis 5. Moderate ascites 6. No evidence of portal vein thrombosis or Budd-Chiari syndrome. 7. COPD with bibasilar airspace disease and parapneumonic effusions. 1. Herve Berumen MD Thoracentesis Ultrasound 10/01/17 0000 Signed Impressions: Service Date/Time: Sunday, October 01, 2017 11:27 - CONCLUSION: Uncomplicated ultrasound guided thoracentesis. Marc Alfredo MD Cyst Biopsy Asp-Paracentesis US 10/01/17 0000 Signed Impressions: Service Date/Time: Sunday, October 01, 2017 09:53 - CONCLUSION: Uncomplicated ultrasound guided paracentesis. Marc Alfredo MD Chest X-Ray 10/01/17 0000 Signed Impressions: Service Date/Time: Sunday, October 01, 2017 13:22 - CONCLUSION: 1. No significant pneumothorax with near resolution of left-sided pleural effusion following thoracentesis. Rohan Leigh MD Abdomen/Pelvis CT 09/30/17 0000 Signed Impressions: Service Date/Time: Sunday, October 01, 2017 02:21 - CONCLUSION: 1. 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 2. Moderate pleural effusions and moderate amount of abdominal pelvic ascites. 3. 2 calcified gallstones. David Blunt MD Chest CT 09/28/17 0000 Signed Impressions: Service Date/Time: Friday, September 29, 2017 01:23 - CONCLUSION: 1. The dominant opacity seen on recent chest x-ray represents loculated pleural effusion in the superior major fissure. 2. Small bilateral pleural effusions, mild consolidative infiltrates in the right lower lung, and right upper abdominal ascites. 3. Calcified gallstones. David Blunt MD Physical Exam CONSTITUTIONAL/GENERAL: This is a thin desheveled patient, in no apparent distress. TUBES/LINES/DRAINS: SKIN: No jaundice, rashes, or lesions. EYES: Pupils equal and round and reactive. Extraocular motions intact. No scleral icterus. No injection or drainage. Fundi not examined. ENT: Hearing grossly normal. Nose without bleeding or purulent drainage. Throat without visible erythema, exudates, masses, or lesions. Oral mucosae moist, poor dentition CARDIOVASCULAR: Regular rate and rhythm without murmurs, gallops, or rubs. No JVD. Peripheral pulses symmetric. Well perfused perifery RESPIRATORY/CHEST: Symmetric, unlabored respirations. Clear to auscultation. Breath sounds equal bilaterally. No wheezes, rales, or rhonchi. GASTROINTESTINAL: Abdomen soft, non-tender, nondistended at all. No hepato- splenomegaly, or palpable masses. No guarding. Bowel sounds present. GENITOURINARY: Without palpable bladder distension. MUSCULOSKELETAL: Extremities without clubbing, cyanosis, or edema. No joint tenderness or effusion noted. No calf tenderness. No mottling or clubbing. NEUROLOGICAL: Awake and alert. Motor and sensory grossly within normal limits. Follows commands. Cognitively sharp. Moves all extremities. PSYCHIATRIC: No obvious anxiety/depression. no apparent hallucinations or other psychotic thought process. 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 SBP per ANC criteria (260), clx P, negative @ 24 hrs AAA, ? fistula Vascular surgeon consulted Symptomatic anemia from GI bleed Hypotension - resolved with IVF LIver cirrhosis with splenomegaly pancytopenia 2/2 splenomegaly change zosyn to ertapenem fu peritoneal fluid clx untill final Marleni Giraldo MD Oct 02, 2017 18:56
[2017-10-03] VITALS (10 sets, daily range): BP systolic 96–127; BP diastolic 57–74; PULSE 70–106; RESP 18–23; TEMP 96.8–98.4; O2SAT 90–100
[2017-10-03] MEDS: PANTOPRAZOLE SODIUM 40 MG VIAL IV PUSH SCH ×2 (01:28→12:34)
[2017-10-03 04:08] LABS: AUTOMATED NEUTROPHIL # 0.6 TH/MM3 (1.8-7.7); BASOPHIL % 0.2 % (0.0-2.0); EOSINOPHIL % 0.6 % (0.0-4.0); HEMATOCRIT 23.6 % (39.0-51.0); HEMOGLOBIN 8.1 GM/DL (13.0-17.0); LYMPH % 33.3 % (9.0-44.0); LYMPHOCYTE # 0.4 TH/MM3 (1.0-4.8); MEAN CELL VOLUME 94.7 FL (80.0-100.0); MEAN CORPUSCULAR HEMOGLOBIN 32.4 PG (27.0-34.0); MEAN CORPUSCULAR HGB CONC 34.2 % (32.0-36.0); MEAN PLATELET VOLUME 7.4 FL (7.0-11.0); MONO % 11.2 % (0.0-8.0); MONOCYTE # 0.1 TH/MM3 (0-0.9); NEUT % 54.7 % (16.0-70.0); PLATELET COUNT 38 TH/MM3 (150-450); RED BLOOD COUNT 2.49 MIL/MM3 (4.50-5.90); RED CELL DISTRIBUTION WIDTH 18.8 % (11.6-17.2); WHITE BLOOD COUNT 1.1 TH/MM3 (4.0-11.0)
[2017-10-03 04:32] LABS: BICARBONATE 31.9 MEQ/L (21.0-32.0); CALCIUM 8.1 MG/DL (8.5-10.1); CREATININE 0.25 MG/DL (0.60-1.30)
[2017-10-03] MEDS: ALBUMIN 25% INJ 100 ML IV SCH ×3 (05:27→22:00)
[2017-10-03 05:42] LABS: BANDS 4 % (0-6); CORRECTED NUCLEATED RBC 1 /100 WBC (0-0); LYMPHOCYTES 30 % (9-44); MONOCYTES 7 % (0-8); NEUTROPHIL # MANUAL DIFF 0.7 TH/MM3 (1.8-7.7); NUCLEATED RED BLOOD CELL 1 (0-0); POLYS (SEG NEUTROPHILS) 59 % (16-70)
[2017-10-03 05:44] LABS: OVALOCYTES 1+ (NORMAL)
[2017-10-03] MEDS: FOLIC ACID 1 MG TAB PO SCH (08:57)
[2017-10-03] MEDS: COLLAGENASE OINT 30 GM TUBE TOPICAL SCH (08:57)
[2017-10-03] MEDS: AZITHROMYCIN 250 MG TAB PO SCH (08:57)
[2017-10-03] MEDS: SODIUM CHLORIDE 0.9% FLUSH 10 ML FLUSH IV FLUSH SCH ×2 (08:57→21:00)
[2017-10-03] MEDS ORDERED: POTASSIUM CHLORIDE 10 MEQ CAP PO SCH (12:15)
--- NOTE | 2017-10-03 12:30 | HHI.GIFU ---
Subjective Remarks Pt resting in bed. Says he's not feeling great but does not identify any specific complaint. He does have loose stools. (Mel Shannon) Objective Vitals I&O Vital Signs Date Time Temp Pulse Resp B/P (MAP) Pulse Ox O2 Delivery O2 Flow Rate FiO2 10/03/17 12:00 80 10/03/17 12:00 98.4 80 20 112/58 (76) 90 10/03/17 10:00 99 10/03/17 08:02 97 Nasal Cannula 3.00 10/03/17 08:00 86 10/03/17 08:00 98.2 86 23 120/57 (78) 97 10/03/17 07:00 97 Nasal Cannula 3.00 10/03/17 06:00 70 10/03/17 04:00 98.0 84 23 96/72 (80) 94 10/03/17 04:00 84 10/03/17 02:00 78 10/03/17 00:00 78 10/03/17 00:00 98.4 78 21 107/57 (74) 100 10/02/17 22:00 85 10/02/17 20:00 82 10/02/17 20:00 98.4 82 20 104/57 (73) 96 10/02/17 19:50 96 Nasal Cannula 2.00 10/02/17 19:00 96 Nasal Cannula 2.00 10/02/17 18:00 94 10/02/17 16:00 98.7 86 27 99/54 (69) 96 10/02/17 16:00 86 10/02/17 14:00 86 I/O 10/02/17 10/02/17 10/02/17 10/03/17 10/03/17 10/03/17 07:00 15:00 23:00 07:00 15:00 23:00 Intake Total 400 ml 720 ml 240 ml Output Total 400 ml 400 ml 400 ml Balance 0 ml 320 ml -160 ml Intake Oral 420 ml 240 ml IV Total 200 ml 300 ml Albumin 200 ml Output Urine Total 400 ml 400 ml 400 ml # Bowel Movements 2 1 Laboratory Laboratory Tests Test 10/03/17 03:39 White Blood Count 1.1 Red Blood Count 2.49 Hemoglobin 8.1 Hematocrit 23.6 Mean Corpuscular Volume 94.7 Mean Corpuscular Hemoglobin 32.4 Mean Corpuscular Hemoglobin Concent 34.2 Red Cell Distribution Width 18.8 Platelet Count 38 Mean Platelet Volume 7.4 Neutrophils (%) (Auto) 54.7 Lymphocytes (%) (Auto) 33.3 Monocytes (%) (Auto) 11.2 Eosinophils (%) (Auto) 0.6 Basophils (%) (Auto) 0.2 Neutrophils # (Auto) 0.6 Lymphocytes # (Auto) 0.4 Monocytes # (Auto) 0.1 Eosinophils # (Auto) 0.0 Basophils # (Auto) 0.0 CBC Comment AUTO DIFF Differential Total Cells Counted 100 Neutrophils % (Manual) 59 Band Neutrophils % 4 Lymphocytes % 30 Monocytes % 7 Neutrophils # (Manual) 0.7 Nucleated Red Blood Cells 1 Differential Comment FINAL DIFF MANUAL Platelet Estimate LOW Platelet Morphology Comment NORMAL Ovalocytes 1+ Blood Urea Nitrogen 11 Creatinine 0.25 Random Glucose 82 Calcium Level 8.1 Sodium Level 143 Potassium Level 3.1 Chloride Level 106 Carbon Dioxide Level 31.9 Anion Gap 5 Estimat Glomerular Filtration Rate 370 Date/Time Source Procedure Growth Status 09/30/17 17:19 Blood Peripheral Aerobic Blood Culture - Preliminary NO GROWTH IN 3 DAYS Resulted 09/30/17 17:19 Blood Peripheral Anaerobic Blood Culture - Preliminary NO GROWTH IN 3 DAYS Resulted 10/01/17 13:10 Fluid Pleural Fluid Fungal Smear - Final NO FUNGAL ELEMENTS SEEN. Resulted 10/01/17 13:10 Fluid Pleural Fluid Fungal Culture Pending Resulted Imaging Last Impressions Aorta CTA 10/01/17 1556 Signed Impressions: Service Date/Time: Sunday, October 01, 2017 17:11 - CONCLUSION: 1. 7.3 cm infrarenal abdominal aortic aneurysm with laminated wall as described above. Findings suggest a contained rupture which may be chronic and possible associated aortic wall inflammation indicating aortitis. 2. Chronic liver disease characteristic of cirrhosis. 3. Splenomegaly 4. Cholelithiasis 5. Moderate ascites 6. No evidence of portal vein thrombosis or Budd-Chiari syndrome. 7. COPD with bibasilar airspace disease and parapneumonic effusions. 1. Herve Berumen MD Thoracentesis Ultrasound 10/01/17 0000 Signed Impressions: Service Date/Time: Sunday, October 01, 2017 11:27 - CONCLUSION: Uncomplicated ultrasound guided thoracentesis. Marc Alfredo MD Cyst Biopsy Asp-Paracentesis US 10/01/17 0000 Signed Impressions: Service Date/Time: Sunday, October 01, 2017 09:53 - CONCLUSION: Uncomplicated ultrasound guided paracentesis. Marc Alfredo MD Chest X-Ray 10/01/17 0000 Signed Impressions: Service Date/Time: Sunday, October 01, 2017 13:22 - CONCLUSION: 1. No significant pneumothorax with near resolution of left-sided pleural effusion following thoracentesis. Rohan Leigh MD Abdomen/Pelvis CT 09/30/17 0000 Signed Impressions: Service Date/Time: Sunday, October 01, 2017 02:21 - CONCLUSION: 1. 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 2. Moderate pleural effusions and moderate amount of abdominal pelvic ascites. 3. 2 calcified gallstones. David Blunt MD Chest CT 09/28/17 0000 Signed Impressions: Service Date/Time: Friday, September 29, 2017 01:23 - CONCLUSION: 1. The dominant opacity seen on recent chest x-ray represents loculated pleural effusion in the superior major fissure. 2. Small bilateral pleural effusions, mild consolidative infiltrates in the right lower lung, and right upper abdominal ascites. 3. Calcified gallstones. David Blunt MD Physical Exam HEENT: PERRL; normocephalic; atraumatic; no jaundice. CHEST: rhonchi, wheezes CARDIAC: RRR ABDOMEN: Soft, mild distended, nontender; no hepatosplenomegaly; bowel sounds are present in all four quadrants. EXTREMITIES: No clubbing, cyanosis, or edema. SKIN: Normal; no rash; no jaundice. 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 s/p paracentesis 1L fluid removed. SAAG 1.1 borderline likely d/t portal HTN liver w/u in progress could consider liver bx - Anemia, melena, heme positive stools. HH 6.1/18.3 on admission. PRBC x 2 and HH improved S/P EGD and colonoscopy found hiatal hernia, gastric ulcer, erosive gastritis , colon polyp - adenomatous polyp. 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 LFT WNL. HCV quant pending - thrombocytopenia - PLT improved after transfusion - Lung mass? Heavy tobacco use. Chest Xray 09/28/17--1. Mass versus loculated pleural fluid in the fissure of the right mid lung. CT of the chest is recommended, preferably with intravenous contrast. 2. Small free-flowing right pleural effusion at the base. 3. Left lung is clear. 4. Tortuous thoracic aorta. CT of chest loculated pleural effusion, bilat effusions, mild consolidative infiltrates, right upper abd ascites, gallstones s/p thoracentesis - e coli bacteremia - ID consulted, ?aortitis unclear source PLAN: - await liver w/u - await HCV quant - Monitor HH, transfuse as needed - Notify GI of active bleeding - Protonix IV BID - Supportive care - Further recommendations to follow based on results of above This pt seen by myself and Dr Painting and this note is written on his behalf (Mel Shannon) Physician Comments Patient seen and examined Agree with above Continue with current supportive care Monitor labs (Domingo Dykes MD) Mel Shannon Oct 03, 2017 12:30 Domingo Dykes MD Oct 03, 2017 19:46
--- NOTE | 2017-10-03 12:48 | PD.ONC.PN ---
Subjective Subjective Remarks Afebrile overnight. Patient resting in bed in nad. Tired of being incontinent. cough unchanged. Objective Data Date Time Temp Pulse Resp B/P (MAP) Pulse Ox O2 Delivery O2 Flow Rate FiO2 10/03/17 12:00 80 10/03/17 12:00 98.4 80 20 112/58 (76) 90 10/03/17 10:00 99 10/03/17 08:02 97 Nasal Cannula 3.00 10/03/17 08:00 86 10/03/17 08:00 98.2 86 23 120/57 (78) 97 10/03/17 07:00 97 Nasal Cannula 3.00 10/03/17 06:00 70 10/03/17 04:00 98.0 84 23 96/72 (80) 94 10/03/17 04:00 84 10/03/17 02:00 78 10/03/17 00:00 78 10/03/17 00:00 98.4 78 21 107/57 (74) 100 10/02/17 22:00 85 10/02/17 20:00 82 10/02/17 20:00 98.4 82 20 104/57 (73) 96 10/02/17 19:50 96 Nasal Cannula 2.00 10/02/17 19:00 96 Nasal Cannula 2.00 10/02/17 18:00 94 10/02/17 16:00 98.7 86 27 99/54 (69) 96 10/02/17 16:00 86 10/02/17 14:00 86 10/03/17 10/03/17 10/03/17 07:00 15:00 23:00 Intake Total 240 ml Output Total 400 ml Balance -160 ml Result Diagram: 10/03/17 0339 10/03/17 0339 Laboratory Results Laboratory Tests Test 10/03/17 03:39 White Blood Count 1.1 TH/MM3 Red Blood Count 2.49 MIL/MM3 Hemoglobin 8.1 GM/DL Hematocrit 23.6 % Mean Corpuscular Volume 94.7 FL Mean Corpuscular Hemoglobin 32.4 PG Mean Corpuscular Hemoglobin Concent 34.2 % Red Cell Distribution Width 18.8 % Platelet Count 38 TH/MM3 Mean Platelet Volume 7.4 FL Neutrophils (%) (Auto) 54.7 % Lymphocytes (%) (Auto) 33.3 % Monocytes (%) (Auto) 11.2 % Eosinophils (%) (Auto) 0.6 % Basophils (%) (Auto) 0.2 % Neutrophils # (Auto) 0.6 TH/MM3 Lymphocytes # (Auto) 0.4 TH/MM3 Monocytes # (Auto) 0.1 TH/MM3 Eosinophils # (Auto) 0.0 TH/MM3 Basophils # (Auto) 0.0 TH/MM3 CBC Comment AUTO DIFF Differential Total Cells Counted 100 Neutrophils % (Manual) 59 % Band Neutrophils % 4 % Lymphocytes % 30 % Monocytes % 7 % Neutrophils # (Manual) 0.7 TH/MM3 Nucleated Red Blood Cells 1 /100 WBC Differential Comment FINAL DIFF MANUAL Platelet Estimate LOW Platelet Morphology Comment NORMAL Ovalocytes 1+ Blood Urea Nitrogen 11 MG/DL Creatinine 0.25 MG/DL Random Glucose 82 MG/DL Calcium Level 8.1 MG/DL Sodium Level 143 MEQ/L Potassium Level 3.1 MEQ/L Chloride Level 106 MEQ/L Carbon Dioxide Level 31.9 MEQ/L Anion Gap 5 MEQ/L Estimat Glomerular Filtration Rate 370 ML/MIN Culture Results Microbiology Date/Time Source Procedure Growth Status 09/30/17 17:19 Blood Peripheral Aerobic Blood Culture - Preliminary NO GROWTH IN 3 DAYS Resulted 09/30/17 17:19 Blood Peripheral Anaerobic Blood Culture - Preliminary NO GROWTH IN 3 DAYS Resulted 09/30/17 17:10 Blood Peripheral Aerobic Blood Culture - Preliminary NO GROWTH IN 3 DAYS Resulted 09/30/17 17:10 Blood Peripheral Anaerobic Blood Culture - Preliminary NO GROWTH IN 3 DAYS Resulted 10/01/17 13:10 Fluid Pleural Fluid Fungal Smear - Final NO FUNGAL ELEMENTS SEEN. Resulted 10/01/17 13:10 Fluid Pleural Fluid Fungal Culture Pending Resulted 10/01/17 13:10 Fluid Pleural Fluid Acid Fast Stain - Final NO ACID FAST BACILLI SEEN Resulted 10/01/17 13:10 Fluid Pleural Fluid Mycobacterial Culture Pending Resulted 10/01/17 13:10 Fluid Pleural Fluid Gram Stain - Final Resulted 10/01/17 13:10 Fluid Pleural Fluid Body Fluid Culture - Preliminary NO GROWTH IN 48 HOURS. Resulted Administered Medications Medications (Trade) Dose Ordered Sig/Jailene Route PRN Reason Start Time Stop Time Status Last Admin Dose Admin Sodium Chloride (NS Flush) 2 ml BID IV FLUSH 09/28/17 13:45 10/03/17 08:57 Pantoprazole Sodium (Protonix Inj) 40 mg Q12H IV PUSH 09/28/17 14:00 10/03/17 12:34 Sodium Chloride 1,000 ml @ 140 mls/hr Q7H9M IV 09/28/17 18:00 Future Hold 09/30/17 02:56 Collagenase (Santyl Oint) 1 applic DAILY TOPICAL 09/29/17 12:45 10/03/17 08:57 Azithromycin (Zithromax) 250 mg DAILY PO 10/01/17 09:00 10/04/17 09:00 10/03/17 08:57 Diphenhydramine HCl (Benadryl) 25 mg Q4H PRN PO SEE LABEL COMMENTS 10/01/17 09:30 10/01/17 09:30 Potassium Chloride 100 ml @ 50 mls/hr Q2H PRN IV For Potassium 2.8 - 3.2 mEq/L 10/01/17 10:45 10/02/17 09:10 Potassium Bicarb/ Potassium Chloride (K-Lyte Cl Eff) 50 meq UNSCH PRN PO For Potassium 3.3 - 3.5 mEq/L 10/01/17 10:45 10/02/17 14:34 Albumin Human 100 ml @ 60 mls/hr Q8HR IV 10/01/17 22:00 10/04/17 23:00 10/03/17 12:34 Diphenhydramine HCl (Benadryl 2% Cream) 1 applic TID PRN TOPICAL ITCHING 10/02/17 10:00 10/02/17 10:23 Folic Acid (Folate) 1 mg DAILY PO 10/02/17 11:00 10/03/17 08:57 Ertapenem 1000 mg/ Sodium Chloride 100 ml @ 200 mls/hr Q24H IV 10/02/17 15:00 10/02/17 15:31 Potassium Chloride (KCl) 40 meq Q2H PO 10/03/17 12:15 10/03/17 14:16 10/03/17 12:37 Objective Remarks GENERAL: Chronically ill male lying in bed SKIN: Warm and dry. HEAD: Normocephalic. EYES: No injection or drainage. NECK: Supple, trachea midline. CARDIOVASCULAR: +S1/S2 RESPIRATORY: anterior post with occasional wheeze. GASTROINTESTINAL: Abdomen soft, non-tender, nondistended. EXTREMITIES: No cyanosis NEUROLOGICAL: awake and alert, normal speech. moving all extremities. Assessment/Plan Problem List: (1) Pancytopenia ICD Codes: D61.818 - Other pancytopenia Plan: --Neupogen started 10/03 --Pancytopenia due to cirrhosis and splenomegaly. --history of hepatitis C diagnosed in the . --CT angiogram showed cirrhotic-appearing liver with splenomegaly and moderate ascites. --likely has baseline pancytopenia due to cirrhosis and splenomegaly with further drop in the white blood cell and platelet count due to recent sepsis. (2) GI bleed ICD Codes: K92.2 - Gastrointestinal hemorrhage, unspecified Status: Acute Plan: --GI bleed likely due NSAID use. --Upper endoscopy showed clean-based gastric ulcer and gastritis. No active bleeding noted. (3) Hepatitis C ICD Codes: B19.20 - Unspecified viral hepatitis C without hepatic coma Plan: --History of hepatitis C --unclear if he is in remission. --CT showed cirrhotic liver. --alpha-fetoprotein WNL (4) Ascites ICD Codes: R18.8 - Other ascites Plan: --had paracentesis with removal of 1100 cc of yellow fluid. --appeared due to portal hypertension. (5) Pleural effusion ICD Codes: J90 - Pleural effusion, not elsewhere classified Plan: -- had thoracentesis with removal of 750 cc of dark yellow fluid. The fluid appeared to be transudative. (6) AAA (abdominal aortic aneurysm) ICD Codes: I71.4 - Abdominal aortic aneurysm, without rupture Plan: -- Infrarenal abdominal aortic aneurysm. -- may have a contained rupture on the CT angiogram. --vascular following Assessment 66y/o male with pancytopenia and failure to thrive. Hepatitis C. --Elevated ferritin level.-->likely due to underlying cirrhosis. doubt that he has hereditary hemochromatosis. Plan 1. monitor CBC 2. start Neupogen 3. continue supportive care Attending Statement The exam, history, and the medical decision-making described in the above note were completed with the assistance of the mid-level provider. I reviewed and agree with the findings presented. I attest that I had a [id number] encounter with the patient on the same day, and personally performed and documented my assessment and findings in the medical record. Still very weak. Worsening neutropenia. Blood counts trending down likely due to sepsis and abx. Given he has resistant E.coli and worsening neutropenia, will start neupogen. HCV edwar still pending. Problem Qualifiers (1) GI bleed: Qualified Codes: K92.2 - Gastrointestinal hemorrhage, unspecified Maria Elena Gómez Oct 03, 2017 12:48 Shaun Gerardo MD Oct 03, 2017 14:49
--- NOTE | 2017-10-03 12:50 | HHI.FPPN ---
Subjective Remarks No acute events overnight. Pt lying in bed. Reports that he still feels weak and fatigue. No active pain. Able to tolerate soft mechanical foods. Endorses diarrhea. Reports that he is hesitant to eat because of diarrhea. Denies CP, SOB , abdominal pain, and N/V. Afebrile. VSS. Objective Vitals Vital Signs Date Time Temp Pulse Resp B/P (MAP) Pulse Ox O2 Delivery O2 Flow Rate FiO2 10/03/17 12:00 80 10/03/17 12:00 98.4 80 20 112/58 (76) 90 10/03/17 10:00 99 10/03/17 08:02 97 Nasal Cannula 3.00 10/03/17 08:00 86 10/03/17 08:00 98.2 86 23 120/57 (78) 97 10/03/17 07:00 97 Nasal Cannula 3.00 10/03/17 06:00 70 10/03/17 04:00 98.0 84 23 96/72 (80) 94 10/03/17 04:00 84 10/03/17 02:00 78 10/03/17 00:00 78 10/03/17 00:00 98.4 78 21 107/57 (74) 100 10/02/17 22:00 85 10/02/17 20:00 82 10/02/17 20:00 98.4 82 20 104/57 (73) 96 10/02/17 19:50 96 Nasal Cannula 2.00 10/02/17 19:00 96 Nasal Cannula 2.00 10/02/17 18:00 94 10/02/17 16:00 98.7 86 27 99/54 (69) 96 10/02/17 16:00 86 10/02/17 14:00 86 I/O 10/02/17 10/02/17 10/02/17 10/03/17 10/03/17 10/03/17 07:00 15:00 23:00 07:00 15:00 23:00 Intake Total 400 ml 720 ml 240 ml Output Total 400 ml 400 ml 400 ml Balance 0 ml 320 ml -160 ml Intake Oral 420 ml 240 ml IV Total 200 ml 300 ml Albumin 200 ml Output Urine Total 400 ml 400 ml 400 ml # Bowel Movements 2 1 Result Diagram: 10/03/17 0339 12/15/17 0339 Objective Remarks O. CONSTITUTIONAL/GEN: Cachectic male, pale and weak, appearing >> stated age. EYES: conjunctiva very pale, PERRLA, EOMI. ENT: Mouth and pharynx show moist MM, upper teeth missing, many lower teeth absent, those remaining are in poor repair NECK: Supple LUNGS: Coarse breath sounds throughout CARDIOVASCULAR: RR without murmur or gallop. 1+ edema to knee bilaterally. GI/ABD: soft without masses, without organomegaly. Widened abdominal aorta. NEURO: No focal deficits. SKIN: color very pale, lichenification both ankles, sacral wound unstagable, 3cm x 6cm HEME/LYMPH: no bruising, petechia or significant adenopathy MUSC: back is normal in appearance. PSYCH/MENTAL STATUS: Alert and oriented x 3. Other: condom catheter in place A/P Assessment and Plan 66 yr old M Hep C, hx of heavy smoking (2ppd for 61 yrs), and chronic aspirin use presented to the ED with anemia and black tarry stools secondary to suspected GI bleed. Patient transferred to ICU 09/30 for ESBL E.coli sepsis. Patient hemodynamically stable for transfer to med/surg floor today. Discharge Planning Case Management to assist with SNF placement Unclear timetable. Problem List: (1) Bacteremia ICD Codes: R78.81 - Bacteremia Status: Acute Plan: Patient transfer to ICU on 09/30 for ESBL E.coli sepsis. Patient hemodynamically stable for transfer back to med/surg floor 10/03. Critical Care consulted, appreciate recs. * CT abd/pelvis w/o contrast done 09/30 revealed moderate size left pleural effusion, ascites, 5cm infrarenal abdominal aortic aneurysm and mesenteric stranding. * CTA 10/01 7.3 cm AAA, contained reputure, cirrhosis, splenomegaly, cholelithiasis, moderate ascites, no evident of protal vein thrombosis or Budd- Chiari syndrome, COPD with bibasilar airspace disease and parapneumonic effusions * 2-D echo - 60-65% * Left pleural effusion- thoracentesis with removal of 750 cc of dark yellow fluid. Fluid appeared transudative. * Ascites- paracentesis with removal of 1100 cc of yellow fluids. This appeared due to portal hypertension. * Possibility of aortoenteric fistula GI reconsulted for mesenteric stranding and ascites, appreciate recommendations * Upper endoscopy showed clean-based gastric ulcer and gastritis. No active bleeding. * Duo/stomach biopsy- Stomach, reactive/chemical gastropathy with intestinal metaplasia. Colon, sigmoid, adenomatous polyp * Check HCV quant- pending * Alpha-feto protein wnl * Elevated ferritin levels due to underlying cirrhosis most likely * Protonix IV BID * liver workup in progress, may need liver biopsy ID consulted, appreciate recommendations * E.coli ESBL sepsis, source is likely GI, questionable SBP * Started Ertapenem 1000 mg IV q24h (10/02) * Continue Azithromycin 250mg PO daily (10/01-10/04) History: Patient met sepsis criteria 09/29 due to tachycardic at 95-113 and hypotension 86/53 Lactic acid 1.4 09/29, Repeat lactic acid 1.5 s/p 500cc bolus of NS, MIVF 140mls/hr 09/29 Discontinued vancomycin 1,250mg IV q12h (09/29-10/01) Discontinued Zosyn 4.5 gm IV q6h (started 09/30-09/22) (2) AAA (abdominal aortic aneurysm) ICD Codes: I71.4 - Abdominal aortic aneurysm, without rupture Plan: CT abd/pelvis w/o contrast done 09/30 5cm infrarenal abdominal aortic aneurysm Aorta CTA 7.3 cm infrarenal AAA with laminated wall, contained rupture which may be chronic and possible associated aortic wall inflammation indicating aortitis Vascular surgery consulted, appreciate recs No intervention for AAA until infection cleared Continue to follow at this time (3) Pancytopenia ICD Codes: D61.818 - Other pancytopenia Plan: WBC trending down since admission, Hb stable, plts trending down since admission 2 units of RBCS transfused 09/28, 1 unit of RBCs transfused 09/29, and 1 unit of RBCs transfused 09/30 1 unit of FFP transfused 09/30 1 unit of Leuk-redu pheresis plts transfused 10/01 prior to thoracentesis Hem/Onc consulted, appreciate recs * Likely has baseline pancytopenia due to cirrhosis and splenomegaly with further crop in the WBC and plt count due to recent sepsis * monitor CBC * Continue daily folate (4) GI bleed ICD Codes: K92.2 - Gastrointestinal hemorrhage, unspecified Status: Acute Plan: Hb of 6.1 upon admission,1 month hx of black tarry stools, chronic aspirin use 2 units of RBCS transfused 09/28, 1 unit of RBCs transfused 09/29, and 1 unit of RBCs transfused 09/30 Hb stable Hemoccult performed by RN in ED on 09/28- positive GI consulted, recommendations appreciated * EGD/colonoscopy demonstrated hiatal hernia, gastric ulcer, erosive gastritis and colon polyp * Duo/stomach biopsy- Stomach, reactive/chemical gastropathy with intestinal metaplasia. Colon, sigmoid, adenomatous polyp * Protonix IV 40 mg IV q12h * Avoid NSAIDs and anticoagulation * EGD in 2 months * Colonoscopy in 2 years (5) Hepatitis C ICD Codes: B19.20 - Unspecified viral hepatitis C without hepatic coma Plan: Patient reports history of Hep C. Patient reports being treated in the s. LFTs wnl. alpha fetoprotein wnl Check HCV quant- pending (6) Abnormal chest x-ray ICD Codes: R93.8 - Abnormal findings on diagnostic imaging of other specified body structures Plan: Heavy smoker. Mass 2.51 x 3.86 found on CXR. Small free-flowing right pleural effusion at the base. CT revealed dominant opacity seen on recent CXR represents loculated pleural effusion in the superior major fissure. Small b/l pleural effusions, mild consolidative infiltrates in the right lower lung, and right upper abdominal ascites. Calcified gallstones. (7) Hypokalemia ICD Codes: E87.6 - Hypokalemia Plan: Potassium chloride 20-40meq IV PRN (8) RALF (acute kidney injury) ICD Codes: N17.9 - Acute kidney failure, unspecified Plan: RALF secondary to dehydration BUN 28 and Cr 0.53 upon admission Improving Continue to monitor (9) Sacral wound ICD Codes: S31.000A - Unspecified open wound of lower back and pelvis without penetration into retroperitoneum, initial encounter Plan: Unstageable sacral wound, 3cm x 6cm Wound care consulted, recommendations appreciated 1) Cleanse sacral wound with normal saline,pat dry. 2) Apply skin prep to gibran wound 3) Santyl josé thick to wound bed 4) Cover with Maxorb 2 cut to fit. 5) Cover with dry dressing (boarder gauze) 6) Change dressing Daily (10) Nutrition, metabolism, and development symptoms ICD Codes: R63.8 - Other symptoms and signs concerning food and fluid intake Plan: Fluids: LR 70cc/hr Diet: Regular Basic Electrolytes: monitor and replace as needed Other: Case management consulted GI ppx: Protonix 40mg IV q12h DVT ppx: SCDs Problem Qualifiers (1) GI bleed: Qualified Codes: K92.2 - Gastrointestinal hemorrhage, unspecified Penelope Velasquez MD R1 Oct 03, 2017 12:50
--- NOTE | 2017-10-03 14:08 | HHI.CCPN ---
Subjective Remarks/Hospital Course 09/30: 66 year-old male with a medical history significant for hepatitis C, heavy smoking history and chronic aspirin use was brought to the hospital a few days back with severe generalized weakness going on for a few days along with diarrhea and black tarry stools. Patient reportedly has been taking 2-3 baby aspirins daily for few years. He also uses Advil routinely per history of present illness. He has is extremely poor by mouth intake with last meal being 2 weeks prior to admission and had been drinking water and soda. He has been having some weight loss. Patient was admitted with severe anemia. He received 3 units PRBCs and subsequently underwent evaluation by GI with EGD and colonoscopy which revealed gastritis and clean based gastric ulcer with no evidence of active bleeding. Patient had hypotension yesterday and was diagnosed to have sepsis based on hypotension and tachycardia. He underwent blood cultures on 09/29 and was initiated on empiric antibiotic coverage with IV vancomycin and Zosyn as well as Zithromax. His blood cultures drawn on are growing out Escherichia coli 2 out of 2 sets. Today patient developed hypotension again and is being transferred to the ICU. Critical care consult requested by family medicine service. I evaluated the patient up on the floor while he was waiting for ICU transfer. At that time he was not in any acute distress. He complain of generalized weakness. He denied any nausea vomiting. He has chronic abdominal pain. He has also had chronic diarrhea for a few months however has not had any diarrhea since yesterday per his RN. He does have a chronic cough however does not have any worsening of his cough or breathing. He denies any dysuria or frequency of urination or hematuria. He has been in [facility] for a month at the [facility] where he comes down to live every year for a month or so. He denies any history of liver cirrhosis. He underwent a CT chest on admission on 09/28 due to abnormal chest x-ray and was found to have a loculated pleural effusion on the right and small bilateral effusions. History was obtained by reviewing records and discussion with patient and nursing staff. 10/01: Received a fluid bolus last evening and was transferred to the ICU. No hypotension since arrival to the ICU. He remains on 2 L nasal cannula overnight. Denies any nausea or abdominal discomfort. Denies any chest pain. Does not appear to be in any acute distress. Has not had any further melena or rectal bleeding or diarrhea. CT abdomen pelvis done on 09/30 revealed moderate size left pleural effusion, ascites, 5 cm infrarenal abdominal aortic aneurysm and mesenteric stranding. 10/02: Hematolgy workup in progress. No further GI bleeding. AAA noted; poor candidate for intervention at this time. 10/03: Resting in bed. Appetite remains poor. No further hypotension since arrival to ICU. Remains on nasal cannula. Has diarrhea off and on. No intervention for AAA tell infection cleared per discussion with Dr. Morales. Objective Vital Signs Date Time Temp Pulse Resp B/P (MAP) Pulse Ox O2 Delivery O2 Flow Rate FiO2 10/03/17 12:00 80 10/03/17 12:00 98.4 20 112/58 (76) 90 10/03/17 08:02 Nasal Cannula 3.00 Intake and Output 10/03/17 10/03/17 10/04/17 08:00 16:00 00:00 Intake Total 240 ml Output Total 400 ml 250 ml Balance -160 ml -250 ml Result Diagram: 10/03/17 0339 10/03/17 0339 Imaging Last Impressions Aorta CTA 10/01/17 1556 Signed Impressions: Service Date/Time: Sunday, October 01, 2017 17:11 - CONCLUSION: 1. 7.3 cm infrarenal abdominal aortic aneurysm with laminated wall as described above. Findings suggest a contained rupture which may be chronic and possible associated aortic wall inflammation indicating aortitis. 2. Chronic liver disease characteristic of cirrhosis. 3. Splenomegaly 4. Cholelithiasis 5. Moderate ascites 6. No evidence of portal vein thrombosis or Budd-Chiari syndrome. 7. COPD with bibasilar airspace disease and parapneumonic effusions. 1. Herve Berumen MD Thoracentesis Ultrasound 10/01/17 0000 Signed Impressions: Service Date/Time: Sunday, October 01, 2017 11:27 - CONCLUSION: Uncomplicated ultrasound guided thoracentesis. Marc Alfredo MD Cyst Biopsy Asp-Paracentesis US 10/01/17 0000 Signed Impressions: Service Date/Time: Sunday, October 01, 2017 09:53 - CONCLUSION: Uncomplicated ultrasound guided paracentesis. Marc Alfredo MD Chest X-Ray 10/01/17 0000 Signed Impressions: Service Date/Time: Sunday, October 01, 2017 13:22 - CONCLUSION: 1. No significant pneumothorax with near resolution of left-sided pleural effusion following thoracentesis. Rohan Leigh MD Abdomen/Pelvis CT 09/30/17 0000 Signed Impressions: Service Date/Time: Sunday, October 01, 2017 02:21 - CONCLUSION: 1. 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 2. Moderate pleural effusions and moderate amount of abdominal pelvic ascites. 3. 2 calcified gallstones. David Blunt MD Chest CT 09/28/17 0000 Signed Impressions: Service Date/Time: Friday, September 29, 2017 01:23 - CONCLUSION: 1. The dominant opacity seen on recent chest x-ray represents loculated pleural effusion in the superior major fissure. 2. Small bilateral pleural effusions, mild consolidative infiltrates in the right lower lung, and right upper abdominal ascites. 3. Calcified gallstones. David Blunt MD Objective Remarks Elderly male who appears poorly nourished, dishevelled,.laying in bed in no acute distress. HEENT/Neuro: Pallor present, No icterus, tongue moist, RENEE, Awake alert oriented 3, nonfocal grossly, moving all 4 extremities Neck: Supple. Chest/pulmonary: Air entry decreased bilaterally at bases, scattered rhonchi, minimal basilar crackles. Cardiovascular: S1-S2 regular no gallop or murmur. No JVD. GI/abdomen: Soft, nontender, bowel sounds present. Minimal distention noted. No organomegaly appreciated. Extremities: Warm bilaterally, no edema. Well perfused. A/P Assessment and Plan XT 6-year-old male with: Generalized weakness Sepsis Escherichia coli bacteremia Acute blood loss anemia Melena (resolved) Chronic diarrhea Loculated pleural effusion/ bilateral pleural effusions (left greater than right ) s/p left thoracentesis Ascites s/p paracentesis Mesenteric stranding Infrarenal abdominal aortic aneurysm (7cm) Possible pneumonia Gallstones Plan: Neuro: Follow neuro status, pain medications prn. Cardiovascular: On maintenance IV fluid 70 cc per hour. Watch for hypotension. Consulted vascular surgery for 7 cm infrarenal AAA. 2-D echo with normal LV/ RV function. Pulmonary: Supplemental O2 as needed, bronchodilators when necessary. s/p diagnostic and therapeutic left thoracentesis GI/liver: Continue by mouth diet. s/p ultrasound-guided paracentesis for further evaluation of ascites. GI reconsulted for mesenteric stranding and ascites. EGD and colonoscopy did not reveal source of blood loss. ID: Positive blood cultures with ESBL Escherichia coli from 09/29. On Ertapenem per ID. ID following, probably intra-abdominal source. Heme: Follow CBC. Worsening thrombocytopenia and leukopenia noted. One unit plasmapheresis platelets ordered prior to thoracentesis/paracentesis. Hematology consult requested in view of pancytopenia with unexplained weight loss with concern for underlying malignancy/bone marrow disorder. Ordered anemia workup to evaluate for iron/ B12/ folate deficiency/hemolysis/bone marrow issue. Endocrine: Watch for hyperglycemia, SSI for glycemic control if needed. Prophylaxis: PPI/SCDs. No heparin in view of recent GI bleeding and worsening thrombocytopenia till cleared by GI. D/W Dr. Morales - no intervention for AAA till cleared by ID, possible endovascular stent candidate. Discussed with family medicine service, discussed with COTTAGE ATTENDANT Patient will be transferred out of the ICU. Critical care signing off, please reconsult if needed. Lonny Parra MD Oct 03, 2017 14:07
[2017-10-03] MEDS: ERTAPENEM INJ 1,000 MG in SODIUM CHLORIDE 0.9% INJ 100 ML IV SCH (17:27)
[2017-10-04] VITALS (13 sets, daily range): BP systolic 116–140; BP diastolic 69–76; PULSE 90–110; RESP 16–22; TEMP 95.8–97.3; O2SAT 70–99
[2017-10-04] MEDS: PANTOPRAZOLE SODIUM 40 MG VIAL IV PUSH SCH ×2 (03:06→13:48)
[2017-10-04] MEDS: ALBUMIN 25% INJ 100 ML IV SCH ×3 (05:25→20:24)
[2017-10-04 08:10] LABS: AUTOMATED NEUTROPHIL # 1.1 TH/MM3 (1.8-7.7); BASOPHIL % 0.2 % (0.0-2.0); EOSINOPHIL % 0.1 % (0.0-4.0); HEMATOCRIT 27.8 % (39.0-51.0); HEMOGLOBIN 9.3 GM/DL (13.0-17.0); LYMPH % 24.3 % (9.0-44.0); LYMPHOCYTE # 0.4 TH/MM3 (1.0-4.8); MEAN CELL VOLUME 95.5 FL (80.0-100.0); MEAN CORPUSCULAR HGB CONC 33.5 % (32.0-36.0); MONO % 11.1 % (0.0-8.0); MONOCYTE # 0.2 TH/MM3 (0-0.9); NEUT % 64.3 % (16.0-70.0); PLATELET COUNT 35 TH/MM3 (150-450); RED BLOOD COUNT 2.91 MIL/MM3 (4.50-5.90); RED CELL DISTRIBUTION WIDTH 18.3 % (11.6-17.2); WHITE BLOOD COUNT 1.8 TH/MM3 (4.0-11.0)
[2017-10-04 08:37] LABS: ALBUMIN 3.9 GM/DL (3.4-5.0); ALT (GPT) 9 U/L (12-78); AST (GOT) 13 U/L (15-37); BICARBONATE 32.4 MEQ/L (21.0-32.0); BLOOD UREA NITROGEN 10 MG/DL (7-18); CALCIUM 8.8 MG/DL (8.5-10.1); CHLORIDE 102 MEQ/L (98-107); GLOMERULAR FILTRATION RATE 300 ML/MIN (>89); GLUCOSE,RANDOM 102 MG/DL (74-106); SODIUM (NA) 142 MEQ/L (136-145)
[2017-10-04 08:40] LABS: ALKALINE PHOSPHATASE 54 U/L (45-117); TOTAL BILIRUBIN ADULT 2.3 MG/DL (0.2-1.0); TOTAL PROTEIN 7.3 GM/DL (6.4-8.2)
[2017-10-04] MEDS: COLLAGENASE OINT 30 GM TUBE TOPICAL SCH (09:00)
[2017-10-04] MEDS: SODIUM CHLORIDE 0.9% FLUSH 10 ML FLUSH IV FLUSH SCH ×2 (09:00→20:24)
[2017-10-04] MEDS: FOLIC ACID 1 MG TAB PO SCH (09:04)
[2017-10-04] MEDS: AZITHROMYCIN 250 MG TAB PO SCH (09:04)
--- NOTE | 2017-10-04 10:54 | HHI.FPPN ---
Subjective Remarks No acute events overnight. Pt lying in bed this AM, watching TV. Endorses weakness and fatigue. Reports poor appetite. Denies CP, SOB, abdominal pain, and N/V. Afebrile. VSS. On 4L 02 NC. (Penelope Velasquez MD R1) Objective Vitals Vital Signs Date Time Temp Pulse Resp B/P (MAP) Pulse Ox O2 Delivery O2 Flow Rate FiO2 10/04/17 10:18 94 Nasal Cannula 4.00 10/04/17 08:00 96.6 97 20 133/72 (92) 99 10/04/17 04:52 93 Nasal Cannula 4.00 10/04/17 04:00 97.3 99 20 140/76 (97) 94 10/04/17 01:58 93 Nasal Cannula 4.00 10/04/17 01:12 103 10/04/17 00:00 97.1 106 22 123/72 (89) 93 10/03/17 20:00 97.3 106 22 127/68 (87) 94 10/03/17 16:00 96.8 99 18 117/74 (88) 92 10/03/17 12:00 80 10/03/17 12:00 98.4 80 20 112/58 (76) 90 I/O 10/03/17 10/03/17 10/03/17 10/04/17 10/04/17 10/04/17 07:00 15:00 23:00 07:00 15:00 23:00 Intake Total 240 ml 480 ml 320 ml Output Total 400 ml 250 ml 150 ml 475 ml Balance -160 ml -250 ml 330 ml -155 ml Intake Oral 240 ml 480 ml 120 ml IV Total 200 ml Output Urine Total 400 ml 250 ml 150 ml 475 ml # Voids 1 # Bowel Movements 1 1 2 1 (Penelope Velasquez MD R1) Result Diagram: 10/04/1720 10/04/17 0720 Objective Remarks O. CONSTITUTIONAL/GEN: Cachectic male, pale and weak, appearing >> stated age. EYES: conjunctiva very pale, PERRLA, EOMI. ENT: Mouth and pharynx show moist MM, upper teeth missing, many lower teeth absent, those remaining are in poor repair NECK: Supple LUNGS: Coarse breath sounds throughout CARDIOVASCULAR: RR without murmur or gallop. 1+ edema to knee bilaterally. GI/ABD: soft without masses, without organomegaly. Widened abdominal aorta. NEURO: No focal deficits. SKIN: color very pale, lichenification both ankles, sacral wound unstagable, 3cm x 6cm HEME/LYMPH: no bruising, petechia or significant adenopathy MUSC: back is normal in appearance. PSYCH/MENTAL STATUS: Alert and oriented x 3. Other: condom catheter in place (Penelope Velasquez MD R1) A/P Assessment and Plan 66 yr old M Hep C, hx of heavy smoking (2ppd for 61 yrs), and chronic aspirin use presented to the ED with anemia and black tarry stools secondary to suspected GI bleed. Patient transferred to ICU 09/30 for ESBL E.coli sepsis. Patient hemodynamically stable for transfer to med/surg 10/03. Discharge Planning Case Management to assist with SNF placement Unclear timetable. (Penelope Velasquez MD R1) Attending Attestation Medical rounds reguarding this patient performed with Dr Cyndie Velasquez this morning, detailed discussion relating to patients hospital course held, patient seen and examined, agree to documentation in this note, See Orders (Yordan Mena MD) Problem List: (1) Bacteremia ICD Codes: R78.81 - Bacteremia Status: Acute Plan: Patient transfer to ICU on 09/30 for ESBL E.coli sepsis. Patient hemodynamically stable for transfer back to med/surg floor 10/03. Critical Care consulted, appreciate recs. * CT abd/pelvis w/o contrast done 09/30 revealed moderate size left pleural effusion, ascites, 5cm infrarenal abdominal aortic aneurysm and mesenteric stranding. * CTA 10/01 7.3 cm AAA, contained reputure, cirrhosis, splenomegaly, cholelithiasis, moderate ascites, no evident of protal vein thrombosis or Budd- Chiari syndrome, COPD with bibasilar airspace disease and parapneumonic effusions * 2-D echo - 60-65% * Left pleural effusion- thoracentesis with removal of 750 cc of dark yellow fluid. Fluid appeared transudative. * Ascites- paracentesis with removal of 1100 cc of yellow fluids. This appeared due to portal hypertension. * Possibility of aortoenteric fistula GI reconsulted for mesenteric stranding and ascites, appreciate recommendations * Upper endoscopy showed clean-based gastric ulcer and gastritis. No active bleeding. * Duo/stomach biopsy- Stomach, reactive/chemical gastropathy with intestinal metaplasia. Colon, sigmoid, adenomatous polyp * Check HCV quant- pending * Alpha-feto protein wnl * Elevated ferritin levels due to underlying cirrhosis most likely * Protonix IV BID * liver workup in progress, may need liver biopsy ID consulted, appreciate recommendations * E.coli ESBL sepsis, source is likely GI, questionable SBP * Continue Ertapenem 1000 mg IV q24h (10/02) * Continue Azithromycin 250mg PO daily (10/01-10/04) History: Patient met sepsis criteria 09/29 due to tachycardic at 95-113 and hypotension 86/53 Lactic acid 1.4 09/29, Repeat lactic acid 1.5 s/p 500cc bolus of NS, MIVF 140mls/hr 09/29 Discontinued vancomycin 1,250mg IV q12h (09/29-10/01) Discontinued Zosyn 4.5 gm IV q6h (started 09/30-09/22) (2) AAA (abdominal aortic aneurysm) ICD Codes: I71.4 - Abdominal aortic aneurysm, without rupture Plan: CT abd/pelvis w/o contrast done 09/30 5cm infrarenal abdominal aortic aneurysm Aorta CTA 7.3 cm infrarenal AAA with laminated wall, contained rupture which may be chronic and possible associated aortic wall inflammation indicating aortitis Vascular surgery consulted, appreciate recs No intervention for AAA until infection cleared Continue to follow at this time (3) Pancytopenia ICD Codes: D61.818 - Other pancytopenia Plan: WBC trending down since admission, Hb stable, plts trending down since admission 2 units of RBCS transfused 09/28, 1 unit of RBCs transfused 09/29, and 1 unit of RBCs transfused 09/30 1 unit of FFP transfused 09/30 1 unit of Leuk-redu pheresis plts transfused 10/01 prior to thoracentesis Hem/Onc consulted, appreciate recs * Likely has baseline pancytopenia due to cirrhosis and splenomegaly with further crop in the WBC and plt count due to recent sepsis * monitor CBC, WBC improved slightly today, will continue Neupogen x 2 more days * Continue daily folate (4) GI bleed ICD Codes: K92.2 - Gastrointestinal hemorrhage, unspecified Status: Acute Plan: Hb of 6.1 upon admission,1 month hx of black tarry stools, chronic aspirin use 2 units of RBCS transfused 09/28, 1 unit of RBCs transfused 09/29, and 1 unit of RBCs transfused 09/30 Hb stable Hemoccult performed by RN in ED on 09/28- positive GI consulted, recommendations appreciated * EGD/colonoscopy demonstrated hiatal hernia, gastric ulcer, erosive gastritis and colon polyp * Duo/stomach biopsy- Stomach, reactive/chemical gastropathy with intestinal metaplasia. Colon, sigmoid, adenomatous polyp * Protonix IV 40 mg IV q12h * Avoid NSAIDs and anticoagulation * EGD in 2 months * Colonoscopy in 2 years (5) Hepatitis C ICD Codes: B19.20 - Unspecified viral hepatitis C without hepatic coma Plan: Patient reports history of Hep C. Patient reports being treated in the s. LFTs wnl. alpha fetoprotein wnl Check HCV quant- pending (6) Abnormal chest x-ray ICD Codes: R93.8 - Abnormal findings on diagnostic imaging of other specified body structures Plan: Heavy smoker. Mass 2.51 x 3.86 found on CXR. Small free-flowing right pleural effusion at the base. CT revealed dominant opacity seen on recent CXR represents loculated pleural effusion in the superior major fissure. Small b/l pleural effusions, mild consolidative infiltrates in the right lower lung, and right upper abdominal ascites. Calcified gallstones. (7) Hypokalemia ICD Codes: E87.6 - Hypokalemia Plan: Potassium chloride 20-40meq IV PRN (8) RALF (acute kidney injury) ICD Codes: N17.9 - Acute kidney failure, unspecified Plan: RALF secondary to dehydration BUN 28 and Cr 0.53 upon admission Improving Continue to monitor (9) Hematuria ICD Codes: R31.9 - Hematuria, unspecified Plan: -UA 09/30 moderate occult blood, unlikely traumatic, patient has condom catheter -PSA ordered -Renal US 10/04 demonstrated small nonobstructing 3mm calyceal calculus in the mid left kidney. 1.4 cm cyst in the inferior pole of the right kidney. (10) Sacral wound ICD Codes: S31.000A - Unspecified open wound of lower back and pelvis without penetration into retroperitoneum, initial encounter Plan: Unstageable sacral wound, 3cm x 6cm Wound care consulted, recommendations appreciated 1) Cleanse sacral wound with normal saline,pat dry. 2) Apply skin prep to gibran wound 3) Santyl josé thick to wound bed 4) Cover with Maxorb 2 cut to fit. 5) Cover with dry dressing (boarder gauze) 6) Change dressing Daily (11) Nutrition, metabolism, and development symptoms ICD Codes: R63.8 - Other symptoms and signs concerning food and fluid intake Plan: Fluids: 100mls/hr NS due to poor appetite Diet: Regular Basic Electrolytes: monitor and replace as needed Other: Case management consulted GI ppx: Protonix 40mg IV q12h DVT ppx: SCDs (Penelope Velasquez MD R1) Problem Qualifiers (1) GI bleed: Qualified Codes: K92.2 - Gastrointestinal hemorrhage, unspecified Penelope Velasquez MD R1 Oct 04, 2017 10:54 Yordan Mena MD Oct 05, 2017 10:58
[2017-10-04 11:04] LABS: BANDS 5 % (0-6); LYMPHOCYTES 25 % (9-44); MONOCYTES 6 % (0-8); NEUTROPHIL # MANUAL DIFF 1.2 TH/MM3 (1.8-7.7); POLYS (SEG NEUTROPHILS) 64 % (16-70)
--- NOTE | 2017-10-04 12:12 | RADRPT ---
EXAM DATE/TIME: 10/04/2017 10:29 [facility] COMPARISON: No previous studies available for comparison. INDICATIONS : Hematuria. MEDICAL HISTORY : Hepatitis C. Tobacco use. Pleural effusion. Ascites. SURGICAL HISTORY : None. ENCOUNTER: Initial ACUITY: 1 day PAIN SCORE: 2/10 LOCATION: Bilateral flank MEASUREMENTS: RIGHT KIDNEY: 10.9 x 4.5 x 4.9 cm LEFT KIDNEY: 10.9 x 3.7 x 5.2 cm FINDINGS: RIGHT KIDNEY: Renal cortex is normal in thickness and echotexture. No hydronephrosis, stone, or mass. Small 1.4 x 1.4 x 1.4 cm cyst in the inferior pole. LEFT KIDNEY: Renal cortex is normal in thickness and echotexture. No hydronephrosis, stone, or mass. Small 3 mm calyceal calculus in the mid left kidney. BLADDER: Within normal limits given the degree of distension. Incidental note of small amount of ascites. CONCLUSION: 1. Small nonobstructing 3 mm calyceal calculus in the mid left kidney. 2. 1.4 cm cyst in the inferior pole of the right kidney. 3. Small amount of ascites. Rohan Leigh MD on October 04, 2017 at 12:08 Board Certified Radiologist. This report was verified electronically.
--- NOTE | 2017-10-04 12:30 | PD.ONC.PN ---
Subjective Subjective Remarks Afebrile Reports he is breathing OK No appetite this am No bleeding No other acute complaints Objective Data Date Time Temp Pulse Resp B/P (MAP) Pulse Ox O2 Delivery O2 Flow Rate FiO2 10/04/17 12:00 96.2 90 21 124/70 (88) 94 10/04/17 10:18 94 Nasal Cannula 4.00 10/04/17 08:00 96.6 97 20 133/72 (92) 99 10/04/17 04:52 93 Nasal Cannula 4.00 10/04/17 04:00 97.3 99 20 140/76 (97) 94 10/04/17 01:58 93 Nasal Cannula 4.00 10/04/17 01:12 103 10/04/17 00:00 97.1 106 22 123/72 (89) 93 10/03/17 20:00 97.3 106 22 127/68 (87) 94 10/03/17 16:00 96.8 99 18 117/74 (88) 92 10/04/17 10/04/17 10/04/17 07:00 15:00 23:00 Intake Total 320 ml Output Total 475 ml Balance -155 ml Result Diagram: 10/04/17 0720 10/04/17 0720 Laboratory Results Laboratory Tests Test 10/04/17 07:20 White Blood Count 1.8 TH/MM3 Red Blood Count 2.91 MIL/MM3 Hemoglobin 9.3 GM/DL Hematocrit 27.8 % Mean Corpuscular Volume 95.5 FL Mean Corpuscular Hemoglobin 32.0 PG Mean Corpuscular Hemoglobin Concent 33.5 % Red Cell Distribution Width 18.3 % Platelet Count 35 TH/MM3 Mean Platelet Volume 8.0 FL Neutrophils (%) (Auto) 64.3 % Lymphocytes (%) (Auto) 24.3 % Monocytes (%) (Auto) 11.1 % Eosinophils (%) (Auto) 0.1 % Basophils (%) (Auto) 0.2 % Neutrophils # (Auto) 1.1 TH/MM3 Lymphocytes # (Auto) 0.4 TH/MM3 Monocytes # (Auto) 0.2 TH/MM3 Eosinophils # (Auto) 0.0 TH/MM3 Basophils # (Auto) 0.0 TH/MM3 CBC Comment AUTO DIFF Differential Total Cells Counted 100 Neutrophils % (Manual) 64 % Band Neutrophils % 5 % Lymphocytes % 25 % Monocytes % 6 % Neutrophils # (Manual) 1.2 TH/MM3 Differential Comment FINAL DIFF MANUAL Platelet Estimate LOW Platelet Morphology Comment NORMAL Blood Urea Nitrogen 10 MG/DL Creatinine 0.30 MG/DL Random Glucose 102 MG/DL Total Protein 7.3 GM/DL Albumin 3.9 GM/DL Calcium Level 8.8 MG/DL Alkaline Phosphatase 54 U/L Aspartate Amino Transf (AST/SGOT) 13 U/L Alanine Aminotransferase (ALT/SGPT) 9 U/L Total Bilirubin 2.3 MG/DL Sodium Level 142 MEQ/L Potassium Level 3.0 MEQ/L Chloride Level 102 MEQ/L Carbon Dioxide Level 32.4 MEQ/L Anion Gap 8 MEQ/L Estimat Glomerular Filtration Rate 300 ML/MIN Culture Results Microbiology Date/Time Source Procedure Growth Status 10/01/17 13:10 Fluid Pleural Fluid Fungal Smear - Final NO FUNGAL ELEMENTS SEEN. Resulted 10/01/17 13:10 Fluid Pleural Fluid Fungal Culture Pending Resulted 10/01/17 13:10 Fluid Pleural Fluid Acid Fast Stain - Final NO ACID FAST BACILLI SEEN Resulted 10/01/17 13:10 Fluid Pleural Fluid Mycobacterial Culture Pending Resulted 10/01/17 13:10 Fluid Pleural Fluid Gram Stain - Final Complete 10/01/17 13:10 Fluid Pleural Fluid Body Fluid Culture - Final NO GROWTH IN 72 HRS.--AEROBICALLY OR ... Complete Imaging Studies Last 24 hours Impressions Renal Ultrasound 10/04/17 0000 Signed Impressions: Service Date/Time: Wednesday, October 04, 2017 10:29 - CONCLUSION: 1. Small nonobstructing 3 mm calyceal calculus in the mid left kidney. 2. 1.4 cm cyst in the inferior pole of the right kidney. 3. Small amount of ascites. Rohan Leigh MD Administered Medications Medications (Trade) Dose Ordered Sig/Jailene Route PRN Reason Start Time Stop Time Status Last Admin Dose Admin Sodium Chloride (NS Flush) 2 ml BID IV FLUSH 09/28/17 13:45 10/04/17 09:00 Pantoprazole Sodium (Protonix Inj) 40 mg Q12H IV PUSH 09/28/17 14:00 10/04/17 03:06 Sodium Chloride 1,000 ml @ 140 mls/hr Q7H9M IV 09/28/17 18:00 Future Hold 09/30/17 02:56 Collagenase (Santyl Oint) 1 applic DAILY TOPICAL 09/29/17 12:45 10/04/17 09:00 Diphenhydramine HCl (Benadryl) 25 mg Q4H PRN PO SEE LABEL COMMENTS 10/01/17 09:30 10/01/17 09:30 Albumin Human 100 ml @ 60 mls/hr Q8HR IV 10/01/17 22:00 10/04/17 23:00 10/04/17 05:25 Diphenhydramine HCl (Benadryl 2% Cream) 1 applic TID PRN TOPICAL ITCHING 10/02/17 10:00 10/02/17 10:23 Folic Acid (Folate) 1 mg DAILY PO 10/02/17 11:00 10/04/17 09:04 Ertapenem 1000 mg/ Sodium Chloride 100 ml @ 200 mls/hr Q24H IV 10/02/17 15:00 10/03/17 17:27 Objective Remarks GENERAL: Chronically ill male lying in bed SKIN: Warm and dry. HEAD: Normocephalic. EYES: No injection or drainage. NECK: Supple, trachea midline. CARDIOVASCULAR: +S1/S2 RESPIRATORY: Clear anteriorly. Breathing unlabored. GASTROINTESTINAL: Abdomen soft, non-tender, nondistended. EXTREMITIES: No cyanosis. SCD's to BLE NEUROLOGICAL: Awake and alert, normal speech. Moving all extremities. Assessment/Plan Problem List: (1) Pancytopenia ICD Codes: D61.818 - Other pancytopenia Plan: --Neupogen started 10/03 --Pancytopenia due to cirrhosis and splenomegaly. --history of hepatitis C diagnosed in the . --CT angiogram showed cirrhotic-appearing liver with splenomegaly and moderate ascites. --likely has baseline pancytopenia due to cirrhosis and splenomegaly with further drop in the white blood cell and platelet count due to recent sepsis. (2) GI bleed ICD Codes: K92.2 - Gastrointestinal hemorrhage, unspecified Status: Acute Plan: --GI bleed likely due NSAID use. --Upper endoscopy showed clean-based gastric ulcer and gastritis. No active bleeding noted. (3) Hepatitis C ICD Codes: B19.20 - Unspecified viral hepatitis C without hepatic coma Plan: --History of hepatitis C --unclear if he is in remission. --CT showed cirrhotic liver. --alpha-fetoprotein WNL (4) Ascites ICD Codes: R18.8 - Other ascites Plan: --had paracentesis with removal of 1100 cc of yellow fluid. --appeared due to portal hypertension. (5) Pleural effusion ICD Codes: J90 - Pleural effusion, not elsewhere classified Plan: -- had thoracentesis with removal of 750 cc of dark yellow fluid. The fluid appeared to be transudative. (6) AAA (abdominal aortic aneurysm) ICD Codes: I71.4 - Abdominal aortic aneurysm, without rupture Plan: -- Infrarenal abdominal aortic aneurysm. -- may have a contained rupture on the CT angiogram. --vascular following Assessment 66y/o male with pancytopenia and failure to thrive. Hepatitis C. --Elevated ferritin level.-->likely due to underlying cirrhosis. doubt that he has hereditary hemochromatosis. Plan 1. Noted WBC slightly improved today; will continue Neupogen x 2 more days 2. Monitor CBC 3. Monitor for bleeding. Attending Statement The exam, history, and the medical decision-making described in the above note were completed with the assistance of the mid-level provider. I reviewed and agree with the findings presented. I attest that I had a [id number] encounter with the patient on the same day, and personally performed and documented my assessment and findings in the medical record. Pt seen and examined. Seemed down today, state he doesn't care if he get SQ injection or IV of Neupogen. WBC seem to be trending up. Discussed DVT prevention, encourage to exercise legs. Problem Qualifiers (1) GI bleed: Qualified Codes: K92.2 - Gastrointestinal hemorrhage, unspecified Ivelisse Hathaway Oct 04, 2017 12:30 Juhi Romero MD Oct 04, 2017 14:12
[2017-10-04] MEDS ORDERED: POTASSIUM CHLORIDE 20 MEQ CONTROLLED RELEASE TAB PO ONE (13:30)
--- NOTE | 2017-10-04 13:46 | HHI.GIFU ---
Subjective Remarks Pt resting in bed, in no apparent distress. He does report a poor appetite. Objective Vitals I&O Vital Signs Date Time Temp Pulse Resp B/P (MAP) Pulse Ox O2 Delivery O2 Flow Rate FiO2 10/04/17 12:00 96.2 90 21 124/70 (88) 94 10/04/17 10:18 94 Nasal Cannula 4.00 10/04/17 08:00 96.6 97 20 133/72 (92) 99 10/04/17 04:52 93 Nasal Cannula 4.00 10/04/17 04:00 97.3 99 20 140/76 (97) 94 10/04/17 01:58 93 Nasal Cannula 4.00 10/04/17 01:12 103 10/04/17 00:00 97.1 106 22 123/72 (89) 93 10/03/17 20:00 97.3 106 22 127/68 (87) 94 10/03/17 16:00 96.8 99 18 117/74 (88) 92 I/O 10/03/17 10/03/17 10/03/17 10/04/17 10/04/17 10/04/17 07:00 15:00 23:00 07:00 15:00 23:00 Intake Total 240 ml 480 ml 320 ml Output Total 400 ml 250 ml 150 ml 475 ml Balance -160 ml -250 ml 330 ml -155 ml Intake Oral 240 ml 480 ml 120 ml IV Total 200 ml Output Urine Total 400 ml 250 ml 150 ml 475 ml # Voids 1 # Bowel Movements 1 1 2 1 Laboratory Laboratory Tests Test 10/04/17 07:20 White Blood Count 1.8 Red Blood Count 2.91 Hemoglobin 9.3 Hematocrit 27.8 Mean Corpuscular Volume 95.5 Mean Corpuscular Hemoglobin 32.0 Mean Corpuscular Hemoglobin Concent 33.5 Red Cell Distribution Width 18.3 Platelet Count 35 Mean Platelet Volume 8.0 Neutrophils (%) (Auto) 64.3 Lymphocytes (%) (Auto) 24.3 Monocytes (%) (Auto) 11.1 Eosinophils (%) (Auto) 0.1 Basophils (%) (Auto) 0.2 Neutrophils # (Auto) 1.1 Lymphocytes # (Auto) 0.4 Monocytes # (Auto) 0.2 Eosinophils # (Auto) 0.0 Basophils # (Auto) 0.0 CBC Comment AUTO DIFF Differential Total Cells Counted 100 Neutrophils % (Manual) 64 Band Neutrophils % 5 Lymphocytes % 25 Monocytes % 6 Neutrophils # (Manual) 1.2 Differential Comment FINAL DIFF MANUAL Platelet Estimate LOW Platelet Morphology Comment NORMAL Blood Urea Nitrogen 10 Creatinine 0.30 Random Glucose 102 Total Protein 7.3 Albumin 3.9 Calcium Level 8.8 Alkaline Phosphatase 54 Aspartate Amino Transf (AST/SGOT) 13 Alanine Aminotransferase (ALT/SGPT) 9 Total Bilirubin 2.3 Sodium Level 142 Potassium Level 3.0 Chloride Level 102 Carbon Dioxide Level 32.4 Anion Gap 8 Estimat Glomerular Filtration Rate 300 Date/Time Source Procedure Growth Status 09/30/17 17:19 Blood Peripheral Aerobic Blood Culture - Preliminary NO GROWTH IN 4 DAYS Resulted 09/30/17 17:19 Blood Peripheral Anaerobic Blood Culture - Preliminary NO GROWTH IN 4 DAYS Resulted 10/01/17 13:10 Fluid Pleural Fluid Fungal Smear - Final NO FUNGAL ELEMENTS SEEN. Resulted 10/01/17 13:10 Fluid Pleural Fluid Fungal Culture Pending Resulted Imaging Last Impressions Renal Ultrasound 10/04/17 0000 Signed Impressions: Service Date/Time: Wednesday, October 04, 2017 10:29 - CONCLUSION: 1. Small nonobstructing 3 mm calyceal calculus in the mid left kidney. 2. 1.4 cm cyst in the inferior pole of the right kidney. 3. Small amount of ascites. Rohan Leigh MD Aorta CTA 10/01/17 1556 Signed Impressions: Service Date/Time: Sunday, October 01, 2017 17:11 - CONCLUSION: 1. 7.3 cm infrarenal abdominal aortic aneurysm with laminated wall as described above. Findings suggest a contained rupture which may be chronic and possible associated aortic wall inflammation indicating aortitis. 2. Chronic liver disease characteristic of cirrhosis. 3. Splenomegaly 4. Cholelithiasis 5. Moderate ascites 6. No evidence of portal vein thrombosis or Budd-Chiari syndrome. 7. COPD with bibasilar airspace disease and parapneumonic effusions. 1. Herve Berumen MD Thoracentesis Ultrasound 10/01/17 0000 Signed Impressions: Service Date/Time: Sunday, October 01, 2017 11:27 - CONCLUSION: Uncomplicated ultrasound guided thoracentesis. Marc Alfredo MD Cyst Biopsy Asp-Paracentesis US 10/01/17 0000 Signed Impressions: Service Date/Time: Sunday, October 01, 2017 09:53 - CONCLUSION: Uncomplicated ultrasound guided paracentesis. Marc Alfredo MD Chest X-Ray 10/01/17 0000 Signed Impressions: Service Date/Time: Sunday, October 01, 2017 13:22 - CONCLUSION: 1. No significant pneumothorax with near resolution of left-sided pleural effusion following thoracentesis. Rohan Leigh MD Abdomen/Pelvis CT 09/30/17 0000 Signed Impressions: Service Date/Time: Sunday, October 01, 2017 02:21 - CONCLUSION: 1. 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 2. Moderate pleural effusions and moderate amount of abdominal pelvic ascites. 3. 2 calcified gallstones. David Blunt MD Chest CT 09/28/17 0000 Signed Impressions: Service Date/Time: Friday, September 29, 2017 01:23 - CONCLUSION: 1. The dominant opacity seen on recent chest x-ray represents loculated pleural effusion in the superior major fissure. 2. Small bilateral pleural effusions, mild consolidative infiltrates in the right lower lung, and right upper abdominal ascites. 3. Calcified gallstones. David Blunt MD Physical Exam HEENT:Normocephalic; atraumatic CHEST: Rhonchi, wheezes CARDIAC: RRR ABDOMEN: Soft, mild distended, nontender; bowel sounds active x 4. EXTREMITIES: BLE edema SKIN: Normal; no rash; no jaundice. 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 s/p paracentesis 1L fluid removed. SAAG 1.1 borderline likely d/t portal HTN liver w/u in progress could consider liver bx - Anemia, melena, heme positive stools. HH 6.1/18.3 on admission. PRBC x 2 and HH improved S/P EGD and colonoscopy found hiatal hernia, gastric ulcer, erosive gastritis , colon polyp - adenomatous polyp. 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 LFT WNL. HCV quant pending - thrombocytopenia - PLT improved after transfusion - Lung mass? Heavy tobacco use. Chest Xray 09/28/17--1. Mass versus loculated pleural fluid in the fissure of the right mid lung. CT of the chest is recommended, preferably with intravenous contrast. 2. Small free-flowing right pleural effusion at the base. 3. Left lung is clear. 4. Tortuous thoracic aorta. CT of chest loculated pleural effusion, bilat effusions, mild consolidative infiltrates, right upper abd ascites, gallstones s/p thoracentesis - e coli bacteremia - ID consulted, ?aortitis unclear source 10/03 - Pt complaining of decreased appetite, liver work up still pending including HCV quant, continue with current management PLAN: - Await liver w/u - Await HCV quant - Monitor HH, transfuse as needed - Notify GI of active bleeding - Protonix IV BID - Supportive care - Further recommendations to follow based on results of above Pt has been seen and examined by myself and Dr. Sow and this note is written on his behalf Taylor Garza Oct 04, 2017 13:46
[2017-10-04] MEDS: FILGRASTIM INJ 300 MCG in DEXTROSE 5% IN WATER INJ 24 ML IV SCH ×4 (13:47→14:08)
[2017-10-04] MEDS: SODIUM CHLOR 0.9% 1000 ML INJ 1,000 ML IV SCH (13:49)
--- NOTE | 2017-10-04 14:55 | HHI.IDPN ---
Subjective Subjective Remarks transferred to floor started on neupogen repeat blood cultures remain negative pleural fluid negative Antibiotics Ertapenem Allergies: Coded Allergies: No Known Allergies (Unverified , 09/28/17) Objective . Vital Signs Date Time Temp Pulse Resp B/P (MAP) Pulse Ox O2 Delivery O2 Flow Rate FiO2 10/04/17 12:00 96.2 90 21 124/70 (88) 94 10/04/17 10:18 94 Nasal Cannula 4.00 10/04/17 08:00 96.6 97 20 133/72 (92) 99 10/04/17 04:52 93 Nasal Cannula 4.00 10/04/17 04:00 97.3 99 20 140/76 (97) 94 10/04/17 01:58 93 Nasal Cannula 4.00 10/04/17 01:12 103 10/04/17 00:00 97.1 106 22 123/72 (89) 93 10/03/17 20:00 97.3 106 22 127/68 (87) 94 10/03/17 16:00 96.8 99 18 117/74 (88) 92 . Laboratory Tests Test 10/03/17 03:39 10/04/17 07:20 White Blood Count 1.1 TH/MM3 1.8 TH/MM3 Red Blood Count 2.49 MIL/MM3 2.91 MIL/MM3 Hemoglobin 8.1 GM/DL 9.3 GM/DL Hematocrit 23.6 % 27.8 % Mean Corpuscular Volume 94.7 FL 95.5 FL Mean Corpuscular Hemoglobin 32.4 PG 32.0 PG Mean Corpuscular Hemoglobin Concent 34.2 % 33.5 % Red Cell Distribution Width 18.8 % 18.3 % Platelet Count 38 TH/MM3 35 TH/MM3 Mean Platelet Volume 7.4 FL 8.0 FL Neutrophils (%) (Auto) 54.7 % 64.3 % Lymphocytes (%) (Auto) 33.3 % 24.3 % Monocytes (%) (Auto) 11.2 % 11.1 % Eosinophils (%) (Auto) 0.6 % 0.1 % Basophils (%) (Auto) 0.2 % 0.2 % Neutrophils # (Auto) 0.6 TH/MM3 1.1 TH/MM3 Lymphocytes # (Auto) 0.4 TH/MM3 0.4 TH/MM3 Monocytes # (Auto) 0.1 TH/MM3 0.2 TH/MM3 Eosinophils # (Auto) 0.0 TH/MM3 0.0 TH/MM3 Basophils # (Auto) 0.0 TH/MM3 0.0 TH/MM3 CBC Comment AUTO DIFF AUTO DIFF Differential Total Cells Counted 100 100 Neutrophils % (Manual) 59 % 64 % Band Neutrophils % 4 % 5 % Lymphocytes % 30 % 25 % Monocytes % 7 % 6 % Neutrophils # (Manual) 0.7 TH/MM3 1.2 TH/MM3 Nucleated Red Blood Cells 1 /100 WBC Differential Comment FINAL DIFF MANUAL FINAL DIFF MANUAL Platelet Estimate LOW LOW Platelet Morphology Comment NORMAL NORMAL Ovalocytes 1+ Laboratory Tests Test 10/03/17 03:39 10/04/17 07:20 Blood Urea Nitrogen 11 MG/DL 10 MG/DL Creatinine 0.25 MG/DL 0.30 MG/DL Random Glucose 82 MG/DL 102 MG/DL Calcium Level 8.1 MG/DL 8.8 MG/DL Sodium Level 143 MEQ/L 142 MEQ/L Potassium Level 3.1 MEQ/L 3.0 MEQ/L Chloride Level 106 MEQ/L 102 MEQ/L Carbon Dioxide Level 31.9 MEQ/L 32.4 MEQ/L Anion Gap 5 MEQ/L 8 MEQ/L Estimat Glomerular Filtration Rate 370 ML/MIN 300 ML/MIN Total Protein 7.3 GM/DL Albumin 3.9 GM/DL Alkaline Phosphatase 54 U/L Aspartate Amino Transf (AST/SGOT) 13 U/L Alanine Aminotransferase (ALT/SGPT) 9 U/L Total Bilirubin 2.3 MG/DL Imaging Last Impressions Renal Ultrasound 10/04/17 0000 Signed Impressions: Service Date/Time: Wednesday, October 04, 2017 10:29 - CONCLUSION: 1. Small nonobstructing 3 mm calyceal calculus in the mid left kidney. 2. 1.4 cm cyst in the inferior pole of the right kidney. 3. Small amount of ascites. Rohan Leigh MD Aorta CTA 10/01/17 1556 Signed Impressions: Service Date/Time: Sunday, October 01, 2017 17:11 - CONCLUSION: 1. 7.3 cm infrarenal abdominal aortic aneurysm with laminated wall as described above. Findings suggest a contained rupture which may be chronic and possible associated aortic wall inflammation indicating aortitis. 2. Chronic liver disease characteristic of cirrhosis. 3. Splenomegaly 4. Cholelithiasis 5. Moderate ascites 6. No evidence of portal vein thrombosis or Budd-Chiari syndrome. 7. COPD with bibasilar airspace disease and parapneumonic effusions. 1. Herve Berumen MD Thoracentesis Ultrasound 10/01/17 0000 Signed Impressions: Service Date/Time: Sunday, October 01, 2017 11:27 - CONCLUSION: Uncomplicated ultrasound guided thoracentesis. Marc Alfredo MD Cyst Biopsy Asp-Paracentesis US 10/01/17 0000 Signed Impressions: Service Date/Time: Sunday, October 01, 2017 09:53 - CONCLUSION: Uncomplicated ultrasound guided paracentesis. Marc Alfredo MD Chest X-Ray 10/01/17 0000 Signed Impressions: Service Date/Time: Sunday, October 01, 2017 13:22 - CONCLUSION: 1. No significant pneumothorax with near resolution of left-sided pleural effusion following thoracentesis. Rohan Leigh MD Abdomen/Pelvis CT 09/30/17 0000 Signed Impressions: Service Date/Time: Sunday, October 01, 2017 02:21 - CONCLUSION: 1. 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 2. Moderate pleural effusions and moderate amount of abdominal pelvic ascites. 3. 2 calcified gallstones. David Blunt MD Chest CT 09/28/17 0000 Signed Impressions: Service Date/Time: Friday, September 29, 2017 01:23 - CONCLUSION: 1. The dominant opacity seen on recent chest x-ray represents loculated pleural effusion in the superior major fissure. 2. Small bilateral pleural effusions, mild consolidative infiltrates in the right lower lung, and right upper abdominal ascites. 3. Calcified gallstones. David Blunt MD Physical Exam CONSTITUTIONAL/GENERAL: This is a thin desheveled patient, in no apparent distress. TUBES/LINES/DRAINS: SKIN: No jaundice, rashes, or lesions. EYES: Pupils equal and round and reactive. Extraocular motions intact. No scleral icterus. No injection or drainage. Fundi not examined. ENT: Hearing grossly normal. Nose without bleeding or purulent drainage. Throat without visible erythema, exudates, masses, or lesions. Oral mucosae moist, poor dentition CARDIOVASCULAR: Regular rate and rhythm without murmurs, gallops, or rubs. No JVD. Peripheral pulses symmetric. Well perfused perifery RESPIRATORY/CHEST: Symmetric, unlabored respirations. Clear to auscultation. Breath sounds equal bilaterally. No wheezes, rales, or rhonchi. GASTROINTESTINAL: Abdomen soft, non-tender, nondistended at all. No hepato- splenomegaly, or palpable masses. No guarding. Bowel sounds present. GENITOURINARY: Without palpable bladder distension. MUSCULOSKELETAL: Extremities without clubbing, cyanosis, or edema. No joint tenderness or effusion noted. No calf tenderness. No mottling or clubbing. NEUROLOGICAL: Awake and alert. Motor and sensory grossly within normal limits. Follows commands. clear speech. Moves all extremities. PSYCHIATRIC: No obvious anxiety/depression. no apparent hallucinations or other psychotic thought process. 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 SBP per ANC criteria (260), clx P, negative - final AAA, ? fistula Vascular surgeon consulted Symptomatic anemia from GI bleed Hypotension - resolved with IVF LIver cirrhosis with splenomegaly pancytopenia 2/2 splenomegaly cont ertapenem x 6-8 weeks Marleni Giraldo MD Oct 04, 2017 14:55
[2017-10-04] MEDS: ERTAPENEM INJ 1,000 MG in SODIUM CHLORIDE 0.9% INJ 100 ML IV SCH (15:18)
[2017-10-04 15:53] LABS: HCV RNA PCR IU/ML LESS THAN 15 IU/mL (0-14)
[2017-10-04] MEDS ORDERED: RESP: ALBUTEROL 2.5 MG/IPRATROPIUM 0.5 MG NEB (PRN) NEB (16:00)
--- NOTE | 2017-10-04 22:27 | HHI.PR ---
Addendum to Inpatient Note Addendum Reason: Additional Documentation Additional Information [facility] Note S: Medical [facility] approximately 1000 due to hypoxia. Per nursing report patient admitted for lower GI bleed, bacteremia, and currently on neutropenic precautions. Hemoglobin has been stable per chart review and is currently not being treated. Patient became acutely short of breath shortly before [facility] called with oxygenation down to the 70s with tachypnea to the 30s. O: GENERAL: Elderly gentleman lying in bed in mild respiratory distress SKIN: Warm and dry. No rash. HEENT: Atraumatic, normocephalic with EOMI. No LAD or JVD appreciated. CARDIOVASCULAR: Regular rate and rhythm with no MGR. RESPIRATORY: Clear to auscultation bilaterally with no CRW. Mild increased work of breathing with accessory muscle use. Patient able to converse in complete sentences. GASTROINTESTINAL: Abdomen nondistended. MUSCULOSKELETAL: Strength grossly WNL. NEURO/PSYCH: Afocal. Awake, alert, and oriented x3. A/P: Mr. Friedman is a 66-year-old gentleman admitted for bacteremia, lower GI bleed , and currently placed on neutropenic precautions presents with respiratory distress. 1. Respiratory distress -Upon entering the room patient's nasal cannula oxygen increased from 4 L to 10 L -Pulse oximeter moved from middle to index finger on right hand with reading increasing from lower 80s to mid 90s. -Respiratory therapy at the bedside to administer breathing treatments -Continue to monitor the patient at this time Peyman Esquivel MD R2 Oct 04, 2017 22:27
[2017-10-05] VITALS (12 sets, daily range): BP systolic 110–128; BP diastolic 64–80; PULSE 92–123; RESP 16–24; TEMP 95.7–98.7; O2SAT 90–100
[2017-10-05] MEDS: SODIUM CHLOR 0.9% 1000 ML INJ 1,000 ML IV SCH ×3 (00:53→19:51)
[2017-10-05] MEDS: PANTOPRAZOLE SODIUM 40 MG VIAL IV PUSH SCH ×2 (04:14→12:47)
[2017-10-05 07:50] LABS: AUTOMATED NEUTROPHIL # 2.4 TH/MM3 (1.8-7.7); BASOPHIL % 0.3 % (0.0-2.0); EOSINOPHIL % 0.1 % (0.0-4.0); HEMATOCRIT 26.8 % (39.0-51.0); LYMPHOCYTE # 0.7 TH/MM3 (1.0-4.8); MEAN CELL VOLUME 96.3 FL (80.0-100.0); MEAN CORPUSCULAR HEMOGLOBIN 32.2 PG (27.0-34.0); MEAN CORPUSCULAR HGB CONC 33.5 % (32.0-36.0); MEAN PLATELET VOLUME 8.2 FL (7.0-11.0); MONO % 7.4 % (0.0-8.0); MONOCYTE # 0.3 TH/MM3 (0-0.9); NEUT % 72.2 % (16.0-70.0); PLATELET COUNT 29 TH/MM3 (150-450); RED BLOOD COUNT 2.78 MIL/MM3 (4.50-5.90); WHITE BLOOD COUNT 3.4 TH/MM3 (4.0-11.0)
[2017-10-05 08:21] LABS: BICARBONATE 32.5 MEQ/L (21.0-32.0); CALCIUM 8.7 MG/DL (8.5-10.1); CREATININE 0.26 MG/DL (0.60-1.30)
[2017-10-05 08:44] LABS: OVALOCYTES 1+ (NORMAL); TOXIC GRANULATION 2+ (NORMAL)
[2017-10-05] MEDS: FOLIC ACID 1 MG TAB PO SCH (09:11)
[2017-10-05] MEDS: COLLAGENASE OINT 30 GM TUBE TOPICAL SCH (09:11)
[2017-10-05] MEDS: SODIUM CHLORIDE 0.9% FLUSH 10 ML FLUSH IV FLUSH SCH ×2 (09:12→19:51)
--- NOTE | 2017-10-05 10:17 | HHI.FPPN ---
Subjective Remarks Resident team paged to [facility] overnight due to hypoxia. Patient became acute SOB with O2 sats to the 70s and tachypnea to the 30s. NC increased from 4L to 10L, Pulse ox moved from middle to index finger of right hand, increasing sats from lower 80s to mid 90s. Breathing treatments administer by respiratory therapist. Pt lying in bed this AM, on 4L NC, O2 sat low 90s. Pt endorses fatigue and weakness. Still has poor appetite. 4BM recorded yesterday. Denies CP, SOB, abdominal pain, and N/V. (Penelope Peterson MD R1) Objective Vitals Vital Signs Date Time Temp Pulse Resp B/P (MAP) Pulse Ox O2 Delivery O2 Flow Rate FiO2 10/05/17 08:00 95.9 106 22 126/71 (89) 90 10/05/17 04:00 96.3 96 16 128/75 (92) 90 10/05/17 00:02 94 10/05/17 00:00 96.2 116 16 117/80 (92) 92 10/04/17 22:17 95.8 110 16 122/75 (91) 96 10/04/17 22:08 95 Nasal Cannula 6.00 10/04/17 22:00 22 70 10/04/17 20:00 95.8 107 16 118/69 (85) 75 10/04/17 20:00 Nasal Cannula 4.00 10/04/17 19:38 106 10/04/17 16:00 96.7 108 20 116/70 (85) 90 10/04/17 12:00 96.2 90 21 124/70 (88) 94 10/04/17 10:18 94 Nasal Cannula 4.00 I/O 10/04/17 10/04/17 10/04/17 10/05/17 10/05/17 10/05/17 07:00 15:00 23:00 07:00 15:00 23:00 Intake Total 320 ml 125 ml 320 ml 1240 ml Output Total 475 ml 450 ml Balance -155 ml 125 ml -130 ml 1240 ml Intake Oral 120 ml 120 ml 240 ml IV Total 200 ml 125 ml 200 ml 1000 ml Output Urine Total 475 ml 450 ml # Voids 2 # Bowel Movements 1 1 (Penelope Peterson MD R1) Result Diagram: 10/05/17 0708 10/05/17 0708 Objective Remarks O. CONSTITUTIONAL/GEN: Cachectic male, pale and weak, appearing >> stated age. EYES: conjunctiva very pale, PERRLA, EOMI. ENT: Mouth and pharynx show moist MM, upper teeth missing, many lower teeth absent, those remaining are in poor repair NECK: Supple LUNGS: Coarse breath sounds throughout CARDIOVASCULAR: RR without murmur or gallop. 1+ edema to knee bilaterally. GI/ABD: soft without masses, without organomegaly. Widened abdominal aorta. NEURO: No focal deficits. SKIN: color very pale, lichenification both ankles, sacral wound unstagable, 3cm x 6cm HEME/LYMPH: no bruising, petechia or significant adenopathy MUSC: back is normal in appearance. PSYCH/MENTAL STATUS: Alert and oriented x 3. Other: condom catheter in place (Penelope Peterson MD R1) A/P Assessment and Plan 66 yr old M Hep C, hx of heavy smoking (2ppd for 61 yrs), and chronic aspirin use presented to the ED with anemia and black tarry stools secondary to suspected GI bleed. Patient transferred to ICU 09/30 for ESBL E.coli sepsis. Patient hemodynamically stable for transfer to med/surg 10/03. Discharge Planning Case Management to assist with SNF placement Unclear timetable. (Penelope Peterson MD R1) Attending Attestation THIS CASE WAS DISCUSSED WITH THE RESIDENT PHYSICIAN,DR Cyndie PETERSON. I HAVE REVIEWED THE RECORD,PATIENT SEEN AND EXAMINED AND AGREE WITH THE ABOVE NOTE AND PLAN OF CARE WAS DISCUSSED. I HAVE AUTHORIZED THE ORDERS. (Yordan Mena MD) Problem List: (1) Bacteremia ICD Codes: R78.81 - Bacteremia Status: Acute Plan: Patient transfer to ICU on 09/30 for ESBL E.coli sepsis. Patient hemodynamically stable for transfer back to med/surg floor 10/03. ID consulted, appreciate recommendations * E.coli ESBL sepsis, source is likely GI, questionable SBP * Continue Ertapenem 1000 mg IV q24h (10/02) x 6-8 weeks History: Patient met sepsis criteria 09/29 due to tachycardic at 95-113 and hypotension 86/53 Lactic acid 1.4 09/29, Repeat lactic acid 1.5 s/p 500cc bolus of NS, MIVF 140mls/hr 09/29 Vancomycin 1,250mg IV q12h (09/29-10/01) Zosyn 4.5 gm IV q6h (started 09/30-09/22) Azithromycin 250mg PO daily (10/01-10/04) Critical Care consulted, appreciate recs. * CT abd/pelvis w/o contrast done 09/30 revealed moderate size left pleural effusion, ascites, 5cm infrarenal abdominal aortic aneurysm and mesenteric stranding. * CTA 10/01 7.3 cm AAA, contained reputure, cirrhosis, splenomegaly, cholelithiasis, moderate ascites, no evident of protal vein thrombosis or Budd- Chiari syndrome, COPD with bibasilar airspace disease and parapneumonic effusions * 2-D echo - 60-65% * Left pleural effusion- thoracentesis with removal of 750 cc of dark yellow fluid. Fluid appeared transudative. * Ascites- paracentesis with removal of 1100 cc of yellow fluids. This appeared due to portal hypertension. * Possibility of aortoenteric fistula (2) AAA (abdominal aortic aneurysm) ICD Codes: I71.4 - Abdominal aortic aneurysm, without rupture Plan: CT abd/pelvis w/o contrast done 09/30 5cm infrarenal abdominal aortic aneurysm Aorta CTA 7.3 cm infrarenal AAA with laminated wall, contained rupture which may be chronic and possible associated aortic wall inflammation indicating aortitis Vascular surgery consulted, appreciate recs No intervention for AAA until infection cleared Continue to follow at this time (3) Pancytopenia ICD Codes: D61.818 - Other pancytopenia Plan: WBC trending down since admission, Hb stable, plts trending down since admission 2 units of RBCS transfused 09/28, 1 unit of RBCs transfused 09/29, and 1 unit of RBCs transfused 09/30 1 unit of FFP transfused 09/30 1 unit of Leuk-redu pheresis plts transfused 10/01 prior to thoracentesis Hem/Onc consulted, appreciate recs * Likely has baseline pancytopenia due to cirrhosis and splenomegaly with further crop in the WBC and plt count due to recent sepsis * monitor CBC, WBC improved today, will continue Neupogen until ANC greter than 2500 x 2 days or until it reaches 5000 * Continue daily folate (4) GI bleed ICD Codes: K92.2 - Gastrointestinal hemorrhage, unspecified Status: Acute Plan: Hb of 6.1 upon admission,1 month hx of black tarry stools, chronic aspirin use 2 units of RBCS transfused 09/28, 1 unit of RBCs transfused 09/29, and 1 unit of RBCs transfused 09/30 Hb stable Hemoccult performed by RN in ED on 09/28- positive GI reconsulted for mesenteric stranding and ascites, appreciate recommendations * EGD/colonoscopy demonstrated hiatal hernia, gastric ulcer, erosive gastritis and colon polyp * Duo/stomach biopsy- Stomach, reactive/chemical gastropathy with intestinal metaplasia. Colon, sigmoid, adenomatous polyp * Check HCV quant, less than 15 IUs/ ml, less than 1.18 log IUs/ml * Alpha-feto protein wnl * Elevated ferritin levels due to underlying cirrhosis most likely * Continue Protonix 40mg IV q12h * Await ASMA, AMA * Await [id number], Ceruloplasmin * Await Hemochromatosis w/u * Continue Protonix IV 40 mg IV q12h * Avoid NSAIDs and anticoagulation * EGD in 2 months * Colonoscopy in 2 years (5) Hematuria ICD Codes: R31.9 - Hematuria, unspecified Plan: -UA 09/30 moderate occult blood, unlikely traumatic, patient has condom catheter -PSA wnl 0.15 -Renal US 10/04 demonstrated small nonobstructing 3mm calyceal calculus in the mid left kidney. 1.4 cm cyst in the inferior pole of the right kidney. -Urology consulted, recs appreciated Urologic impression: gross hematuria (now resolved) of indeterminate etiology; abnormal coagulation profile and thrombocytopenia likely contributing to the hematuria * manage conservatively for now * office follow up after hospital discharge when overall medical condition improved for cystoscopic evaluation [phone] * will be available as needed during present hospitalization (6) Hepatitis C ICD Codes: B19.20 - Unspecified viral hepatitis C without hepatic coma Plan: Patient reports history of Hep C. Patient reports being treated in the s. LFTs wnl. alpha fetoprotein wnl Check HCV quant, less than 15 IUs/ml, less than 1.18 log IUs/ml (7) Abnormal chest x-ray ICD Codes: R93.8 - Abnormal findings on diagnostic imaging of other specified body structures Plan: Heavy smoker. Mass 2.51 x 3.86 found on CXR. Small free-flowing right pleural effusion at the base. CT revealed dominant opacity seen on recent CXR represents loculated pleural effusion in the superior major fissure. Small b/l pleural effusions, mild consolidative infiltrates in the right lower lung, and right upper abdominal ascites. Calcified gallstones. (8) Hypokalemia ICD Codes: E87.6 - Hypokalemia Plan: Improving Replace orally if needed Continue to monitor (9) RALF (acute kidney injury) ICD Codes: N17.9 - Acute kidney failure, unspecified Plan: RALF secondary to dehydration BUN 28 and Cr 0.53 upon admission Improving Continue to monitor (10) Sacral wound ICD Codes: S31.000A - Unspecified open wound of lower back and pelvis without penetration into retroperitoneum, initial encounter Plan: Unstageable sacral wound, 3cm x 6cm Wound care consulted, recommendations appreciated 1) Cleanse sacral wound with normal saline,pat dry. 2) Apply skin prep to gibran wound 3) Santyl josé thick to wound bed 4) Cover with Maxorb 2 cut to fit. 5) Cover with dry dressing (boarder gauze) 6) Change dressing Daily (11) Nutrition, metabolism, and development symptoms ICD Codes: R63.8 - Other symptoms and signs concerning food and fluid intake Plan: Fluids: 100mls/hr NS due to poor appetite Diet: Regular Basic Electrolytes: monitor and replace as needed Other: Case management consulted GI ppx: Protonix 40mg IV q12h DVT ppx: SCDs (Penelope Peterson MD R1) Problem Qualifiers (1) GI bleed: Qualified Codes: K92.2 - Gastrointestinal hemorrhage, unspecified Penelope Peterson MD R1 Oct 05, 2017 10:17 Yordan Mena MD Oct 07, 2017 21:18
--- NOTE | 2017-10-05 10:45 | PD.ONC.PN ---
Subjective Subjective Remarks Afebrile Patient reports he gets short of breath if fan is turned off No bleeding No other acute complaints Objective Data Date Time Temp Pulse Resp B/P (MAP) Pulse Ox O2 Delivery O2 Flow Rate FiO2 10/05/17 08:00 95.9 106 22 126/71 (89) 90 10/05/17 04:00 96.3 96 16 128/75 (92) 90 10/05/17 00:02 94 10/05/17 00:00 96.2 116 16 117/80 (92) 92 10/04/17 22:17 95.8 110 16 122/75 (91) 96 10/04/17 22:08 95 Nasal Cannula 6.00 10/04/17 22:00 22 70 10/04/17 20:00 95.8 107 16 118/69 (85) 75 10/04/17 20:00 Nasal Cannula 4.00 10/04/17 19:38 106 10/04/17 16:00 96.7 108 20 116/70 (85) 90 10/04/17 12:00 96.2 90 21 124/70 (88) 94 10/05/17 10/05/17 10/05/17 07:00 15:00 23:00 Intake Total 1240 ml Balance 1240 ml Result Diagram: 10/05/17 0708 10/05/17 0708 Laboratory Results Laboratory Tests Test 10/04/17 14:45 10/05/17 07:08 Prostate Specific Antigen 0.15 NG/ML White Blood Count 3.4 TH/MM3 Red Blood Count 2.78 MIL/MM3 Hemoglobin 9.0 GM/DL Hematocrit 26.8 % Mean Corpuscular Volume 96.3 FL Mean Corpuscular Hemoglobin 32.2 PG Mean Corpuscular Hemoglobin Concent 33.5 % Red Cell Distribution Width 19.0 % Platelet Count 29 TH/MM3 Mean Platelet Volume 8.2 FL Neutrophils (%) (Auto) 72.2 % Lymphocytes (%) (Auto) 20.0 % Monocytes (%) (Auto) 7.4 % Eosinophils (%) (Auto) 0.1 % Basophils (%) (Auto) 0.3 % Neutrophils # (Auto) 2.4 TH/MM3 Lymphocytes # (Auto) 0.7 TH/MM3 Monocytes # (Auto) 0.3 TH/MM3 Eosinophils # (Auto) 0.0 TH/MM3 Basophils # (Auto) 0.0 TH/MM3 CBC Comment AUTO DIFF Differential Comment AUTO DIFF CONFIRMED Toxic Granulation 2+ Platelet Estimate LOW Platelet Morphology Comment NORMAL Ovalocytes 1+ Blood Urea Nitrogen 14 MG/DL Creatinine 0.26 MG/DL Random Glucose 95 MG/DL Calcium Level 8.7 MG/DL Sodium Level 145 MEQ/L Potassium Level 4.0 MEQ/L Chloride Level 107 MEQ/L Carbon Dioxide Level 32.5 MEQ/L Anion Gap 6 MEQ/L Estimat Glomerular Filtration Rate 354 ML/MIN Administered Medications Medications (Trade) Dose Ordered Sig/Jailene Route PRN Reason Start Time Stop Time Status Last Admin Dose Admin Sodium Chloride (NS Flush) 2 ml BID IV FLUSH 09/28/17 13:45 10/05/17 09:12 Pantoprazole Sodium (Protonix Inj) 40 mg Q12H IV PUSH 09/28/17 14:00 10/05/17 04:14 Collagenase (Santyl Oint) 1 applic DAILY TOPICAL 09/29/17 12:45 10/05/17 09:11 Diphenhydramine HCl (Benadryl) 25 mg Q4H PRN PO SEE LABEL COMMENTS 10/01/17 09:30 10/01/17 09:30 Diphenhydramine HCl (Benadryl 2% Cream) 1 applic TID PRN TOPICAL ITCHING 10/02/17 10:00 10/02/17 10:23 Folic Acid (Folate) 1 mg DAILY PO 10/02/17 11:00 10/05/17 09:11 Sodium Chloride 1,000 ml @ 100 mls/hr Q10H IV 10/04/17 13:45 10/05/17 09:12 Objective Remarks GENERAL: Chronically ill male lying in bed SKIN: Warm and dry. HEAD: Normocephalic. EYES: No injection or drainage. NECK: Supple, trachea midline. CARDIOVASCULAR: +S1/S2 RESPIRATORY: Clear anteriorly. Breathing unlabored. GASTROINTESTINAL: Abdomen soft, non-tender, nondistended. EXTREMITIES: No cyanosis. SCD's to BLE NEUROLOGICAL: Awake and alert, normal speech. Moving all extremities. Assessment/Plan Problem List: (1) Pancytopenia ICD Codes: D61.818 - Other pancytopenia Plan: --Neupogen started 10/03 --Pancytopenia due to cirrhosis and splenomegaly. --history of hepatitis C diagnosed in the . --CT angiogram showed cirrhotic-appearing liver with splenomegaly and moderate ascites. --likely has baseline pancytopenia due to cirrhosis and splenomegaly with further drop in the white blood cell and platelet count due to recent sepsis. (2) GI bleed ICD Codes: K92.2 - Gastrointestinal hemorrhage, unspecified Status: Acute Plan: --GI bleed likely due NSAID use. --Upper endoscopy showed clean-based gastric ulcer and gastritis. No active bleeding noted. (3) Hepatitis C ICD Codes: B19.20 - Unspecified viral hepatitis C without hepatic coma Plan: --History of hepatitis C --unclear if he is in remission. --CT showed cirrhotic liver. --alpha-fetoprotein WNL (4) Ascites ICD Codes: R18.8 - Other ascites Plan: --had paracentesis with removal of 1100 cc of yellow fluid. --appeared due to portal hypertension. (5) Pleural effusion ICD Codes: J90 - Pleural effusion, not elsewhere classified Plan: -- had thoracentesis with removal of 750 cc of dark yellow fluid. The fluid appeared to be transudative. (6) AAA (abdominal aortic aneurysm) ICD Codes: I71.4 - Abdominal aortic aneurysm, without rupture Plan: -- Infrarenal abdominal aortic aneurysm. -- may have a contained rupture on the CT angiogram. --vascular following Assessment 66y/o male with pancytopenia and failure to thrive. Hepatitis C. --Elevated ferritin level.-->likely due to underlying cirrhosis. doubt that he has hereditary hemochromatosis. Plan 1. Noted WBC slightly improved today; continue Neupogen until ANC greater than 2500 x 2 days OR until it reaches 5000. 2. Monitor CBC 3. Monitor for bleeding. Attending Statement The exam, history, and the medical decision-making described in the above note were completed with the assistance of the mid-level provider. I reviewed and agree with the findings presented. I attest that I had a [id number] encounter with the patient on the same day, and personally performed and documented my assessment and findings in the medical record. Pt seen and examined. Explains he is most concerned about continence. WBC increase with GCSF. Platelet count trending down but no bleeding, no petechiae. Thrombocytopenia due to liver disease, decrease in thrombopoietin and hypersplenism. No transfusion needed. Problem Qualifiers (1) GI bleed: Qualified Codes: K92.2 - Gastrointestinal hemorrhage, unspecified Ivelisse Hathaway Oct 05, 2017 10:45 Juhi Romero MD Oct 05, 2017 12:14
[2017-10-05] MEDS: RESP: ALBUTEROL 2.5 MG/IPRATROPIUM 0.5 MG NEB (SCH) NEB ×3 (11:28→21:30)
--- NOTE | 2017-10-05 12:22 | PD.CONS ---
[facility] Service Urology Consult Requested By Dr. Velasquez Reason for Consult Gross hematuria Primary Care Physician No Primary Care Physician Diagnosis: History of Present Illness 66-year-old gentleman who was admitted for a GI bleed. During the course of his present hospitalization the patient developed gross hematuria and a urology consult was placed. Urinalysis at the time of admission was negative for red blood cells or white blood cells. A CT scan of the abdomen and pelvis was performed on October 01 that failed to demonstrate any significant urologic pathology. At the time of consultation the patient was quite sleepy and I could not elicit any significant history from him. He did have a condom catheter with paul urine noted. History was obtained from review of the medical record. Review of Systems ROS Limitations: Poor Historian Except as stated in HPI: all other systems reviewed are Neg Past Family Social History Past Medical History Hepatitis C Past Surgical History No apparent major surgery in the past Reported Medications Refer to EMR Allergies: Coded Allergies: No Known Allergies (Unverified , 09/28/17) Active Ordered Medications Refer to EMR Family History Mother with diabetes mellitus Social History Heavy smoker of 2 packs per day since age of 15 Has not used alcoholic beverages since he was in his 20s No history of illicit drug usage Physical Exam Vital Signs Date Time Temp Pulse Resp B/P (MAP) Pulse Ox O2 Delivery O2 Flow Rate FiO2 10/05/17 12:00 96.0 105 23 117/65 (82) 90 10/05/17 11:31 92 Nasal Cannula 6.00 10/05/17 08:00 95.9 106 22 126/71 (89) 90 10/05/17 08:00 106 10/05/17 04:00 96.3 96 16 128/75 (92) 90 10/05/17 00:02 94 10/05/17 00:00 96.2 116 16 117/80 (92) 92 10/04/17 22:17 95.8 110 16 122/75 (91) 96 10/04/17 22:08 95 Nasal Cannula 6.00 10/04/17 22:00 22 70 10/04/17 20:00 95.8 107 16 118/69 (85) 75 10/04/17 20:00 Nasal Cannula 4.00 10/04/17 19:38 106 10/04/17 16:00 96.7 108 20 116/70 (85) 90 Physical Exam GENERAL: Lying quietly, appears stated age. SKIN: No rashes, ecchymoses or lesions. Cool and dry. HEAD: Atraumatic. Normocephalic. No temporal or scalp tenderness. EYES: Pupils equal round and reactive. Extraocular motions intact. No scleral icterus. No injection or drainage. ENT: Nose without bleeding, purulent drainage or septal hematoma. Throat without erythema, tonsillar hypertrophy or exudate. Uvula midline. Airway patent. NECK: Trachea midline. No JVD or lymphadenopathy. Supple, nontender, no meningeal signs. GASTROINTESTINAL: Abdomen soft, non-tender, nondistended. No hepato-splenomegaly , or palpable masses. No guarding. GENITOURINARY: Catheter draining paul urine, bladder not distended MUSCULOSKELETAL: Extremities without clubbing, cyanosis, or edema. No joint tenderness, effusion, or edema noted. No calf tenderness. Negative Homans sign bilaterally. NEUROLOGICAL: Sleepy but arousable. Lab results reviewed: Yes Laboratory Tests Test 10/04/17 14:45 10/05/17 07:08 Prostate Specific Antigen 0.15 White Blood Count 3.4 Red Blood Count 2.78 Hemoglobin 9.0 Hematocrit 26.8 Mean Corpuscular Volume 96.3 Mean Corpuscular Hemoglobin 32.2 Mean Corpuscular Hemoglobin Concent 33.5 Red Cell Distribution Width 19.0 Platelet Count 29 Mean Platelet Volume 8.2 Neutrophils (%) (Auto) 72.2 Lymphocytes (%) (Auto) 20.0 Monocytes (%) (Auto) 7.4 Eosinophils (%) (Auto) 0.1 Basophils (%) (Auto) 0.3 Neutrophils # (Auto) 2.4 Lymphocytes # (Auto) 0.7 Monocytes # (Auto) 0.3 Eosinophils # (Auto) 0.0 Basophils # (Auto) 0.0 CBC Comment AUTO DIFF Differential Comment AUTO DIFF CONFIRMED Toxic Granulation 2+ Platelet Estimate LOW Platelet Morphology Comment NORMAL Ovalocytes 1+ Blood Urea Nitrogen 14 Creatinine 0.26 Random Glucose 95 Calcium Level 8.7 Sodium Level 145 Potassium Level 4.0 Chloride Level 107 Carbon Dioxide Level 32.5 Anion Gap 6 Estimat Glomerular Filtration Rate 354 Date/Time Source Procedure Growth Status 09/30/17 17:19 Blood Peripheral Aerobic Blood Culture - Final NO GROWTH IN 5 DAYS Complete 09/30/17 17:19 Blood Peripheral Anaerobic Blood Culture - Final NO GROWTH IN 5 DAYS Complete 10/01/17 13:10 Fluid Pleural Fluid Fungal Smear - Final NO FUNGAL ELEMENTS SEEN. Resulted 10/01/17 13:10 Fluid Pleural Fluid Fungal Culture Pending Resulted Result Diagram: 10/05/17 0708 10/05/17 0708 Imaging Last Impressions Renal Ultrasound 10/04/17 0000 Signed Impressions: Service Date/Time: Wednesday, October 04, 2017 10:29 - CONCLUSION: 1. Small nonobstructing 3 mm calyceal calculus in the mid left kidney. 2. 1.4 cm cyst in the inferior pole of the right kidney. 3. Small amount of ascites. Rohan Leigh MD Aorta CTA 10/01/17 1556 Signed Impressions: Service Date/Time: Sunday, October 01, 2017 17:11 - CONCLUSION: 1. 7.3 cm infrarenal abdominal aortic aneurysm with laminated wall as described above. Findings suggest a contained rupture which may be chronic and possible associated aortic wall inflammation indicating aortitis. 2. Chronic liver disease characteristic of cirrhosis. 3. Splenomegaly 4. Cholelithiasis 5. Moderate ascites 6. No evidence of portal vein thrombosis or Budd-Chiari syndrome. 7. COPD with bibasilar airspace disease and parapneumonic effusions. 1. Herve Berumen MD Thoracentesis Ultrasound 10/01/17 0000 Signed Impressions: Service Date/Time: Sunday, October 01, 2017 11:27 - CONCLUSION: Uncomplicated ultrasound guided thoracentesis. Marc Alfredo MD Cyst Biopsy Asp-Paracentesis US 10/01/17 0000 Signed Impressions: Service Date/Time: Sunday, October 01, 2017 09:53 - CONCLUSION: Uncomplicated ultrasound guided paracentesis. Marc Alfredo MD Chest X-Ray 10/01/17 0000 Signed Impressions: Service Date/Time: Sunday, October 01, 2017 13:22 - CONCLUSION: 1. No significant pneumothorax with near resolution of left-sided pleural effusion following thoracentesis. Rohan Leigh MD Abdomen/Pelvis CT 09/30/17 0000 Signed Impressions: Service Date/Time: Sunday, October 01, 2017 02:21 - CONCLUSION: 1. 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 2. Moderate pleural effusions and moderate amount of abdominal pelvic ascites. 3. 2 calcified gallstones. David Blunt MD Chest CT 09/28/17 0000 Signed Impressions: Service Date/Time: Friday, September 29, 2017 01:23 - CONCLUSION: 1. The dominant opacity seen on recent chest x-ray represents loculated pleural effusion in the superior major fissure. 2. Small bilateral pleural effusions, mild consolidative infiltrates in the right lower lung, and right upper abdominal ascites. 3. Calcified gallstones. David Blunt MD Assessment and Plan Assessment and Plan Urologic impression: #1 gross hematuria (now resolved) of indeterminate etiology #2 abnormal coagulation profile and thrombocytopenia likely contributing to the hematuria Plan: #1 would manage conservatively for now #2 office follow up after hospital discharge when overall medical condition improved for cystoscopic evaluation [phone] #3 will be available as needed during present hospitalization Rickie Mckeon MD Oct 05, 2017 12:22
[2017-10-05] MEDS ORDERED: FILGRASTIM 300 MCG/ML VIAL SQ SCH (14:00)
--- NOTE | 2017-10-05 14:06 | HHI.GIFU ---
Subjective Remarks Patient lying in bed, in no apparent distress. WILBERT was paged overnight due to hypoxia. Denies abdominal pain. Has poor appetite. Objective Vitals I&O Vital Signs Date Time Temp Pulse Resp B/P (MAP) Pulse Ox O2 Delivery O2 Flow Rate FiO2 10/05/17 12:00 96.0 105 23 117/65 (82) 90 10/05/17 11:31 92 Nasal Cannula 6.00 10/05/17 08:00 95.9 106 22 126/71 (89) 90 10/05/17 08:00 106 10/05/17 04:00 96.3 96 16 128/75 (92) 90 10/05/17 00:02 94 10/05/17 00:00 96.2 116 16 117/80 (92) 92 10/04/17 22:17 95.8 110 16 122/75 (91) 96 10/04/17 22:08 95 Nasal Cannula 6.00 10/04/17 22:00 22 70 10/04/17 20:00 95.8 107 16 118/69 (85) 75 10/04/17 20:00 Nasal Cannula 4.00 10/04/17 19:38 106 10/04/17 16:00 96.7 108 20 116/70 (85) 90 I/O 10/04/17 10/04/17 10/04/17 10/05/17 10/05/17 10/05/17 07:00 15:00 23:00 07:00 15:00 23:00 Intake Total 320 ml 125 ml 320 ml 1240 ml Output Total 475 ml 450 ml Balance -155 ml 125 ml -130 ml 1240 ml Intake Oral 120 ml 120 ml 240 ml IV Total 200 ml 125 ml 200 ml 1000 ml Output Urine Total 475 ml 450 ml # Voids 2 # Bowel Movements 1 1 Laboratory Laboratory Tests Test 10/04/17 14:45 10/05/17 07:08 Prostate Specific Antigen 0.15 White Blood Count 3.4 Red Blood Count 2.78 Hemoglobin 9.0 Hematocrit 26.8 Mean Corpuscular Volume 96.3 Mean Corpuscular Hemoglobin 32.2 Mean Corpuscular Hemoglobin Concent 33.5 Red Cell Distribution Width 19.0 Platelet Count 29 Mean Platelet Volume 8.2 Neutrophils (%) (Auto) 72.2 Lymphocytes (%) (Auto) 20.0 Monocytes (%) (Auto) 7.4 Eosinophils (%) (Auto) 0.1 Basophils (%) (Auto) 0.3 Neutrophils # (Auto) 2.4 Lymphocytes # (Auto) 0.7 Monocytes # (Auto) 0.3 Eosinophils # (Auto) 0.0 Basophils # (Auto) 0.0 CBC Comment AUTO DIFF Differential Comment AUTO DIFF CONFIRMED Toxic Granulation 2+ Platelet Estimate LOW Platelet Morphology Comment NORMAL Ovalocytes 1+ Blood Urea Nitrogen 14 Creatinine 0.26 Random Glucose 95 Calcium Level 8.7 Sodium Level 145 Potassium Level 4.0 Chloride Level 107 Carbon Dioxide Level 32.5 Anion Gap 6 Estimat Glomerular Filtration Rate 354 Date/Time Source Procedure Growth Status 09/30/17 17:19 Blood Peripheral Aerobic Blood Culture - Final NO GROWTH IN 5 DAYS Complete 09/30/17 17:19 Blood Peripheral Anaerobic Blood Culture - Final NO GROWTH IN 5 DAYS Complete 10/01/17 13:10 Fluid Pleural Fluid Fungal Smear - Final NO FUNGAL ELEMENTS SEEN. Resulted 10/01/17 13:10 Fluid Pleural Fluid Fungal Culture Pending Resulted Imaging Last Impressions Renal Ultrasound 10/04/17 0000 Signed Impressions: Service Date/Time: Wednesday, October 04, 2017 10:29 - CONCLUSION: 1. Small nonobstructing 3 mm calyceal calculus in the mid left kidney. 2. 1.4 cm cyst in the inferior pole of the right kidney. 3. Small amount of ascites. Rohan Leigh MD Aorta CTA 10/01/17 1556 Signed Impressions: Service Date/Time: Sunday, October 01, 2017 17:11 - CONCLUSION: 1. 7.3 cm infrarenal abdominal aortic aneurysm with laminated wall as described above. Findings suggest a contained rupture which may be chronic and possible associated aortic wall inflammation indicating aortitis. 2. Chronic liver disease characteristic of cirrhosis. 3. Splenomegaly 4. Cholelithiasis 5. Moderate ascites 6. No evidence of portal vein thrombosis or Budd-Chiari syndrome. 7. COPD with bibasilar airspace disease and parapneumonic effusions. 1. Herve Berumen MD Thoracentesis Ultrasound 10/01/17 0000 Signed Impressions: Service Date/Time: Sunday, October 01, 2017 11:27 - CONCLUSION: Uncomplicated ultrasound guided thoracentesis. Marc Alfredo MD Cyst Biopsy Asp-Paracentesis US 10/01/17 0000 Signed Impressions: Service Date/Time: Sunday, October 01, 2017 09:53 - CONCLUSION: Uncomplicated ultrasound guided paracentesis. Marc Alfredo MD Chest X-Ray 10/01/17 0000 Signed Impressions: Service Date/Time: Sunday, October 01, 2017 13:22 - CONCLUSION: 1. No significant pneumothorax with near resolution of left-sided pleural effusion following thoracentesis. Rohan Leigh MD Abdomen/Pelvis CT 09/30/17 0000 Signed Impressions: Service Date/Time: Sunday, October 01, 2017 02:21 - CONCLUSION: 1. 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 2. Moderate pleural effusions and moderate amount of abdominal pelvic ascites. 3. 2 calcified gallstones. David Blunt MD Chest CT 09/28/17 0000 Signed Impressions: Service Date/Time: Friday, September 29, 2017 01:23 - CONCLUSION: 1. The dominant opacity seen on recent chest x-ray represents loculated pleural effusion in the superior major fissure. 2. Small bilateral pleural effusions, mild consolidative infiltrates in the right lower lung, and right upper abdominal ascites. 3. Calcified gallstones. David Blunt MD Physical Exam HEENT: Normocephalic; atraumatic CHEST: Coarse breath sounds CARDIAC: RRR. ABDOMEN: Soft, mild distended, nontender; bowel sounds active x 4. EXTREMITIES: BLE edema, 1+ SKIN: Normal; no rash; no jaundice. RECONDITIONER: Lethargic Assessment and Plan Plan ASSESSMENT: - Ascites - per CTA, moderate effusions and pelvic ascites, 5cm AAA with soft tissue thickening, mesenteric induration, cirrhosis. S/p paracentesis 1L fluid removed. SAAG 1.1 borderline likely d/t portal HTN. Liver w/u in progress. Could consider liver bx - Anemia, melena, heme positive stools. HH 6.1/18.3 on admission. S/P EGD and colonoscopy found hiatal hernia, gastric ulcer, erosive gastritis, colon polyp - adenomatous polyp. 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 LFT WNL. HCV negative. - Thrombocytopenia. - Lung mass? Heavy tobacco use. Chest Xray 09/28/17--1. Mass versus loculated pleural fluid in the fissure of the right mid lung. CT of the chest is recommended, preferably with intravenous contrast. 2. Small free-flowing right pleural effusion at the base. 3. Left lung is clear. 4. Tortuous thoracic aorta. CT of chest loculated pleural effusion, bilat effusions, mild consolidative infiltrates, right upper abd ascites, gallstones. s/p thoracentesis - E coli bacteremia - ID consulted, ?aortitis Unclear source 10/03/17-- Pt complaining of decreased appetite, liver work up still pending including HCV quant, continue with current management 10/05/17--Continues to have decreased appetite. HCV negative. ANDRE negative. ASMA , AMA pending. [id number], Ceruloplasmin pending. Hemochromatosis w/u pending. HH 07/15.8. Platelets 29. PLAN: - Await ASMA, AMA - Await [id number], Ceruloplasmin - Await Hemochromatosis w/u - Monitor HH, transfuse as needed - Notify GI of active bleeding - Protonix IV BID - Repeat EGD in 2 months - Repeat Colonoscopy in 2 years - Supportive care - Further recommendations to follow based on results of above Patient seen and examined by Dr. Sow and myself and this note is written on his behalf. Maryana Alanis Oct 05, 2017 14:06
--- NOTE | 2017-10-05 19:28 | HHI.PR ---
Addendum to Inpatient Note Addendum Reason: Additional Documentation Additional Information Off-service note: Mr. Friedman is a 66 yr old M Hep C, hx of heavy smoking (2ppd for 61 yrs), and chronic aspirin use initially admitted with anemia and black tarry stools secondary to suspected GI bleed. From [place], comes to [place] during the winter. GI consulted and following. EGD/colonoscopy demonstrated hiatal hernia, gastric ulcer, erosive gastritis and colon polyp. Duo/stomach biopsy revealed reactive/ chemical gastropathy with intestinal metaplasia. Colon, sigmoid, adenomatous polyp. Patient received several PRBCS transfusion. H/H now stable. Patient continuing IV protonix. Awaiting hemochromatosis work up. On 09/30 patient was transferred to ICU for ESBL E.coli sepsis. Critical care and ID consulted. Patient was placed on several antibiotics (see progress note for more abx history), only antibiotics patient is receiving now is ertapenem, which will need to be continued for 6-8 weeks. During ICU stay, thoracentesis was performed for removal of left pleural effusion as well as paracentesis performed for ascites. Fluid appeared transudative. This appeared to be due to portal hypertension. Patient also found to have 7.3 cm AAA on CTA. Vascular surgery consulted and following. No intervention for AAA until infection cleared. In addition, patient has pancytopenia due to cirrhosis and splenomegaly with further drop in the WBC and plt count due to recent sepsis. Hem/Onc consulted and following. Patient started on Neupogen. WBC improving. Will continue Neupogen until ANX greater than 2500 x 2 days or until it reaches 5000. Patient hemodynamically stable for transfer to med/surg 10/03. Discharge planning: unclear timetable. Patient will need infection cleared until stent placed for AAA. Case management to assist with SNF placement upon discharge. Penelope Velasquez MD R1 Oct 05, 2017 19:28
[2017-10-06] VITALS (11 sets, daily range): BP systolic 99–132; BP diastolic 54–67; PULSE 88–104; RESP 16–20; TEMP 95.4–98.6; O2SAT 90–98
[2017-10-06] MEDS: PANTOPRAZOLE SODIUM 40 MG VIAL IV PUSH SCH ×2 (01:00→12:37)
[2017-10-06] MEDS: SODIUM CHLOR 0.9% 1000 ML INJ 1,000 ML IV SCH ×2 (04:53→15:45)
[2017-10-06] MEDS: RESP: ALBUTEROL 2.5 MG/IPRATROPIUM 0.5 MG NEB (SCH) NEB ×4 (05:24→21:17)
[2017-10-06 07:11] LABS: BICARBONATE 32.2 MEQ/L (21.0-32.0); CALCIUM 8.2 MG/DL (8.5-10.1); CREATININE 0.26 MG/DL (0.60-1.30)
[2017-10-06 07:22] LABS: AUTOMATED NEUTROPHIL # 6.3 TH/MM3 (1.8-7.7); BASOPHIL % 0.2 % (0.0-2.0); EOSINOPHIL % 0.2 % (0.0-4.0); HEMATOCRIT 29.2 % (39.0-51.0); HEMOGLOBIN 9.6 GM/DL (13.0-17.0); LYMPH % 10.3 % (9.0-44.0); LYMPHOCYTE # 0.8 TH/MM3 (1.0-4.8); MEAN CELL VOLUME 95.2 FL (80.0-100.0); MEAN CORPUSCULAR HEMOGLOBIN 31.3 PG (27.0-34.0); MEAN CORPUSCULAR HGB CONC 32.9 % (32.0-36.0); MONO % 4.8 % (0.0-8.0); MONOCYTE # 0.4 TH/MM3 (0-0.9); NEUT % 84.5 % (16.0-70.0); PLATELET COUNT 25 TH/MM3 (150-450); RED BLOOD COUNT 3.06 MIL/MM3 (4.50-5.90); RED CELL DISTRIBUTION WIDTH 18.7 % (11.6-17.2); WHITE BLOOD COUNT 7.5 TH/MM3 (4.0-11.0)
[2017-10-06] MEDS ORDERED: CALCIUM CARBONATE 1.25 GM (CA 500 MG) TAB PO ONE (08:00)
[2017-10-06] MEDS ORDERED: POTASSIUM CHLORIDE 20 MEQ CONTROLLED RELEASE TAB PO ONE ×2 (08:00→12:15)
[2017-10-06 08:28] LABS: OVALOCYTES 1+ (NORMAL)
[2017-10-06] MEDS: FOLIC ACID 1 MG TAB PO SCH (08:54)
[2017-10-06] MEDS: SODIUM CHLORIDE 0.9% FLUSH 10 ML FLUSH IV FLUSH SCH ×3 (08:55→20:12)
[2017-10-06] MEDS: COLLAGENASE OINT 30 GM TUBE TOPICAL SCH (08:56)
[2017-10-06] MEDS ORDERED: MORPHINE SULFATE 2 MG/ML INJ IV PUSH PRN (10:00)
[2017-10-06] MEDS ORDERED: MISCELLANEOUS PHARMACY INFORMATION XX PRN (10:30)
[2017-10-06] MEDS ORDERED: ASP: Documented ESBL, MDR A baumannii or P. aeruginosa PRN (10:30)
[2017-10-06] MEDS ORDERED: ERTAPENEM INJ 1,000 MG in SODIUM CHLORIDE 0.9% INJ 100 ML IV SCH (11:00)
--- NOTE | 2017-10-06 11:09 | HHI.FPPN ---
Subjective Remarks Patient seen and examined this morning. He states he is doing well. No nausea, vomiting, fever, chills, headache, abdominal pain, chest pain, lightheadedness, dizziness, shortness of breath. No other complaints. Objective Vitals Vital Signs Date Time Temp Pulse Resp B/P (MAP) Pulse Ox O2 Delivery O2 Flow Rate FiO2 10/06/17 10:30 92 Nasal Cannula 6.00 10/06/17 08:00 95.4 92 20 99/55 (70) 98 10/06/17 08:00 Nasal Cannula 4.00 10/06/17 08:00 92 10/06/17 05:25 90 Nasal Cannula 6.00 10/06/17 04:40 88 132/67 (88) 10/06/17 03:35 104 10/06/17 00:00 98.6 93 16 108/54 (72) 96 10/05/17 23:55 92 10/05/17 21:56 98.7 123 18 110/72 (85) 94 10/05/17 21:55 Nasal Cannula 4.00 10/05/17 21:30 95 Nasal Cannula 6.00 10/05/17 20:02 101 10/05/17 16:00 95.7 101 24 111/64 (80) 93 10/05/17 14:50 100 10/05/17 12:00 96.0 105 23 117/65 (82) 90 10/05/17 11:31 92 Nasal Cannula 6.00 I/O 10/05/17 10/05/17 10/05/17 10/06/17 10/06/17 10/06/17 07:00 15:00 23:00 07:00 15:00 23:00 Intake Total 1240 ml 1000 ml 1200 ml 1000 ml Output Total 450 ml 1300 ml Balance 1240 ml 1000 ml 750 ml -300 ml Intake Oral 240 ml 200 ml IV Total 1000 ml 1000 ml 1000 ml 1000 ml Output Urine Total 450 ml 1300 ml # Voids 2 # Bowel Movements 0 1 Result Diagram: 10/06/1763610/06/1737 Objective Remarks CONSTITUTIONAL/GEN: Cachectic male, pale and weak EYES: conjunctiva very pale, PERRLA, EOMI. ENT: Mouth and pharynx show moist MM, upper teeth missing, many lower teeth absent, those remaining are in poor repair NECK: Supple LUNGS: Coarse breath sounds throughout CARDIOVASCULAR: RR without murmur or gallop. 1+ edema to knee bilaterally. GI/ABD: soft without masses, without organomegaly. Widened abdominal aorta. NEURO: No focal deficits. SKIN: color very pale, lichenification both ankles, sacral wound unstagable, 3cm x 6cm HEME/LYMPH: no bruising, petechia or significant adenopathy MUSC: back is normal in appearance. PSYCH/MENTAL STATUS: Alert and oriented x 3. Other: condom catheter in place A/P Assessment and Plan 66 yr old M Hep C, hx of heavy smoking (2ppd for 61 yrs), and chronic aspirin use presented to the ED with anemia and black tarry stools secondary to suspected GI bleed. Patient transferred to ICU 09/30 for ESBL E.coli sepsis. Patient hemodynamically stable for transfer to med/surg 10/03. Discharge Planning Case Management to assist with SNF placement Unclear timetable. Problem List: (1) Bacteremia ICD Codes: R78.81 - Bacteremia Status: Acute Plan: Patient transfer to ICU on 09/30 for ESBL E.coli sepsis. Patient hemodynamically stable for transfer back to med/surg floor 10/03. ID consulted, appreciate recommendations * E.coli ESBL sepsis, source is likely GI, questionable SBP * Continue Ertapenem 1000 mg IV q24h (10/02) x 6-8 weeks per ID History: Patient met sepsis criteria 09/29 due to tachycardic at 95-113 and hypotension 86/53 Lactic acid 1.4 09/29, Repeat lactic acid 1.5 s/p 500cc bolus of NS, MIVF 140mls/hr 09/29 Vancomycin 1,250mg IV q12h (09/29-10/01) Zosyn 4.5 gm IV q6h (started 09/30-09/22) Azithromycin 250mg PO daily (10/01-10/04) Critical Care consulted, appreciate recs. * CT abd/pelvis w/o contrast done 09/30 revealed moderate size left pleural effusion, ascites, 5cm infrarenal abdominal aortic aneurysm and mesenteric stranding. * CTA 10/01 7.3 cm AAA, contained reputure, cirrhosis, splenomegaly, cholelithiasis, moderate ascites, no evident of protal vein thrombosis or Budd- Chiari syndrome, COPD with bibasilar airspace disease and parapneumonic effusions * 2-D echo - 60-65% * Left pleural effusion- thoracentesis with removal of 750 cc of dark yellow fluid. Fluid appeared transudative. * Ascites- paracentesis with removal of 1100 cc of yellow fluids. This appeared due to portal hypertension. * Possibility of aortoenteric fistula (2) AAA (abdominal aortic aneurysm) ICD Codes: I71.4 - Abdominal aortic aneurysm, without rupture Plan: CT abd/pelvis w/o contrast done 09/30 5cm infrarenal abdominal aortic aneurysm Aorta CTA 7.3 cm infrarenal AAA with laminated wall, contained rupture which may be chronic and possible associated aortic wall inflammation indicating aortitis Vascular surgery consulted, appreciate recs No intervention for AAA until infection cleared Continue to follow at this time (3) Pancytopenia ICD Codes: D61.818 - Other pancytopenia Plan: WBC trending down since admission, Hb stable, plts trending down since admission Hem/Onc consulted, appreciate recs * Likely has baseline pancytopenia due to cirrhosis and splenomegaly with further crop in the WBC and plt count due to recent sepsis * monitor CBC, WBC improved today, Neupogen 10/03-10/06 * Continue daily folate 2 units of RBCS transfused 09/28, 1 unit of RBCs transfused 09/29, and 1 unit of RBCs transfused 09/30 1 unit of FFP transfused 09/30 1 unit of Leuk-redu pheresis plts transfused 10/01 prior to thoracentesis (4) GI bleed ICD Codes: K92.2 - Gastrointestinal hemorrhage, unspecified Status: Acute Plan: Hb of 6.1 upon admission,1 month hx of black tarry stools, chronic aspirin use 2 units of RBCS transfused 09/28, 1 unit of RBCs transfused 09/29, and 1 unit of RBCs transfused 09/30 Hb stable Hemoccult performed by RN in ED on 09/28- positive GI reconsulted for mesenteric stranding and ascites, appreciate recommendations * EGD/colonoscopy demonstrated hiatal hernia, gastric ulcer, erosive gastritis and colon polyp * Duo/stomach biopsy- Stomach, reactive/chemical gastropathy with intestinal metaplasia. Colon, sigmoid, adenomatous polyp * Check HCV quant, less than 15 IUs/ ml, less than 1.18 log IUs/ml * Alpha-feto protein wnl * Elevated ferritin levels due to underlying cirrhosis most likely * Continue Protonix 40mg IV q12h * Await ASMA, AMA * Await [id number]-[id number], Ceruloplasmin * Await Hemochromatosis w/u * Continue Protonix IV 40 mg IV q12h * Avoid NSAIDs and anticoagulation * EGD in 2 months * Colonoscopy in 2 years (5) Hematuria ICD Codes: R31.9 - Hematuria, unspecified Plan: -UA 09/30 moderate occult blood, unlikely traumatic, patient has condom catheter -PSA wnl 0.15 -Renal US 10/04 demonstrated small nonobstructing 3mm calyceal calculus in the mid left kidney. 1.4 cm cyst in the inferior pole of the right kidney. -Urology consulted, recs appreciated Urologic impression: gross hematuria (now resolved) of indeterminate etiology; abnormal coagulation profile and thrombocytopenia likely contributing to the hematuria * manage conservatively for now * office follow up after hospital discharge when overall medical condition improved for cystoscopic evaluation [phone] * will be available as needed during present hospitalization (6) Hepatitis C ICD Codes: B19.20 - Unspecified viral hepatitis C without hepatic coma Plan: Patient reports history of Hep C. Patient reports being treated in the . LFTs wnl. alpha fetoprotein wnl Check HCV quant, less than 15 IUs/ml, less than 1.18 log IUs/ml (7) Abnormal chest x-ray ICD Codes: R93.8 - Abnormal findings on diagnostic imaging of other specified body structures Plan: Heavy smoker. Mass 2.51 x 3.86 found on CXR. Small free-flowing right pleural effusion at the base. CT revealed dominant opacity seen on recent CXR represents loculated pleural effusion in the superior major fissure. Small b/l pleural effusions, mild consolidative infiltrates in the right lower lung, and right upper abdominal ascites. Calcified gallstones. (8) Hypokalemia ICD Codes: E87.6 - Hypokalemia Plan: Improving Replace orally if needed Continue to monitor (9) RALF (acute kidney injury) ICD Codes: N17.9 - Acute kidney failure, unspecified Plan: RALF secondary to dehydration BUN 28 and Cr 0.53 upon admission Improving Continue to monitor (10) Sacral wound ICD Codes: S31.000A - Unspecified open wound of lower back and pelvis without penetration into retroperitoneum, initial encounter Plan: Unstageable sacral wound, 3cm x 6cm Wound care consulted, recommendations appreciated 1) Cleanse sacral wound with normal saline,pat dry. 2) Apply skin prep to gibran wound 3) Santyl josé thick to wound bed 4) Cover with Maxorb 2 cut to fit. 5) Cover with dry dressing (boarder gauze) 6) Change dressing Daily (11) Nutrition, metabolism, and development symptoms ICD Codes: R63.8 - Other symptoms and signs concerning food and fluid intake Plan: Fluids: 100mls/hr NS due to poor appetite Diet: Regular Basic Electrolytes: monitor and replace as needed Other: Case management consulted GI ppx: Protonix 40mg IV q12h DVT ppx: SCDs Problem Qualifiers (1) GI bleed: Qualified Codes: K92.2 - Gastrointestinal hemorrhage, unspecified Edilson Shoemaker MD R1 Oct 06, 2017 11:09
--- NOTE | 2017-10-06 11:16 | PD.ONC.PN ---
Subjective Subjective Remarks Afebrile overnight. Patient resting in bed. About to receive breathing treatment. Has required increasing oxygen support over the past 48 hours, currently on 6L O2 via NC. Objective Data Date Time Temp Pulse Resp B/P (MAP) Pulse Ox O2 Delivery O2 Flow Rate FiO2 10/06/17 10:30 92 Nasal Cannula 6.00 10/06/17 08:00 95.4 92 20 99/55 (70) 98 10/06/17 08:00 Nasal Cannula 4.00 10/06/17 08:00 92 10/06/17 05:25 90 Nasal Cannula 6.00 10/06/17 04:40 88 132/67 (88) 10/06/17 03:35 104 10/06/17 00:00 98.6 93 16 108/54 (72) 96 10/05/17 23:55 92 10/05/17 21:56 98.7 123 18 110/72 (85) 94 10/05/17 21:55 Nasal Cannula 4.00 10/05/17 21:30 95 Nasal Cannula 6.00 10/05/17 20:02 101 10/05/17 16:00 95.7 101 24 111/64 (80) 93 10/05/17 14:50 100 10/05/17 12:00 96.0 105 23 117/65 (82) 90 10/05/17 11:31 92 Nasal Cannula 6.00 10/06/17 10/06/17 10/06/17 07:00 15:00 23:00 Intake Total 1000 ml Output Total 1300 ml Balance -300 ml Result Diagram: 10/06/1737 10/06/17 0637 Laboratory Results Laboratory Tests Test 10/06/17 06:37 White Blood Count 7.5 TH/MM3 Red Blood Count 3.06 MIL/MM3 Hemoglobin 9.6 GM/DL Hematocrit 29.2 % Mean Corpuscular Volume 95.2 FL Mean Corpuscular Hemoglobin 31.3 PG Mean Corpuscular Hemoglobin Concent 32.9 % Red Cell Distribution Width 18.7 % Platelet Count 25 TH/MM3 Mean Platelet Volume 8.0 FL Neutrophils (%) (Auto) 84.5 % Lymphocytes (%) (Auto) 10.3 % Monocytes (%) (Auto) 4.8 % Eosinophils (%) (Auto) 0.2 % Basophils (%) (Auto) 0.2 % Neutrophils # (Auto) 6.3 TH/MM3 Lymphocytes # (Auto) 0.8 TH/MM3 Monocytes # (Auto) 0.4 TH/MM3 Eosinophils # (Auto) 0.0 TH/MM3 Basophils # (Auto) 0.0 TH/MM3 CBC Comment AUTO DIFF Differential Comment AUTO DIFF CONFIRMED Ovalocytes 1+ Hematology Comments Blood Urea Nitrogen 13 MG/DL Creatinine 0.26 MG/DL Random Glucose 104 MG/DL Calcium Level 8.2 MG/DL Sodium Level 149 MEQ/L Potassium Level 3.2 MEQ/L Chloride Level 111 MEQ/L Carbon Dioxide Level 32.2 MEQ/L Anion Gap 6 MEQ/L Estimat Glomerular Filtration Rate 354 ML/MIN Administered Medications Medications (Trade) Dose Ordered Sig/Jailene Route PRN Reason Start Time Stop Time Status Last Admin Dose Admin Sodium Chloride (NS Flush) 2 ml BID IV FLUSH 09/28/17 13:45 10/06/17 08:56 Pantoprazole Sodium (Protonix Inj) 40 mg Q12H IV PUSH 09/28/17 14:00 10/06/17 01:00 Collagenase (Santyl Oint) 1 applic DAILY TOPICAL 09/29/17 12:45 10/06/17 08:56 Diphenhydramine HCl (Benadryl) 25 mg Q4H PRN PO SEE LABEL COMMENTS 10/01/17 09:30 10/01/17 09:30 Diphenhydramine HCl (Benadryl 2% Cream) 1 applic TID PRN TOPICAL ITCHING 10/02/17 10:00 10/02/17 10:23 Folic Acid (Folate) 1 mg DAILY PO 10/02/17 11:00 10/06/17 08:54 Sodium Chloride 1,000 ml @ 100 mls/hr Q10H IV 10/04/17 13:45 10/06/17 04:53 Albuterol/ Ipratropium (Duoneb Neb) 1 ampule Q6HR NEB NEB 10/05/17 10:00 10/06/17 10:29 Objective Remarks GENERAL: Middle aged male supine in bed in nad. On 6L O2 via NC SKIN: Warm and dry. HEAD: Normocephalic. EYES: No injection or drainage. NECK: Supple, trachea midline. CARDIOVASCULAR: +S1/S2 RESPIRATORY: anterior post with scattered rhonchi. GASTROINTESTINAL: Abdomen soft, non-tender, nondistended. EXTREMITIES: No cyanosis NEUROLOGICAL: awake and alert, normal speech. Assessment/Plan Problem List: (1) Pancytopenia ICD Codes: D61.818 - Other pancytopenia Plan: --Neupogen started 10/03, and stopped 10/06. --Pancytopenia due to cirrhosis and splenomegaly. --history of hepatitis C diagnosed in the . --CT angiogram showed cirrhotic-appearing liver with splenomegaly and moderate ascites. --likely has baseline pancytopenia due to cirrhosis and splenomegaly with further drop in the white blood cell and platelet count due to recent sepsis. (2) GI bleed ICD Codes: K92.2 - Gastrointestinal hemorrhage, unspecified Status: Acute Plan: GI following --GI bleed likely due NSAID use. --Upper endoscopy showed clean-based gastric ulcer and gastritis. No active bleeding noted. (3) Hepatitis C ICD Codes: B19.20 - Unspecified viral hepatitis C without hepatic coma Plan: --History of hepatitis C --unclear if he is in remission. --CT showed cirrhotic liver. --alpha-fetoprotein WNL (4) Ascites ICD Codes: R18.8 - Other ascites Plan: --had paracentesis with removal of 1100 cc of yellow fluid. --appeared due to portal hypertension. (5) Pleural effusion ICD Codes: J90 - Pleural effusion, not elsewhere classified Plan: -- had thoracentesis with removal of 750 cc of dark yellow fluid. The fluid appeared to be transudative. (6) AAA (abdominal aortic aneurysm) ICD Codes: I71.4 - Abdominal aortic aneurysm, without rupture Plan: -- Infrarenal abdominal aortic aneurysm. -- may have a contained rupture on the CT angiogram. --vascular following Assessment 66y/o male with pancytopenia and failure to thrive. Hepatitis C. --Elevated ferritin level.-->likely due to underlying cirrhosis. doubt that he has hereditary hemochromatosis. Plan 1. WBC recovered. stop Neupogen 2. monitor CBC 3. await hemochromatosis labs. Attending Statement The exam, history, and the medical decision-making described in the above note were completed with the assistance of the mid-level provider. I reviewed and agree with the findings presented. I attest that I had a [id number] encounter with the patient on the same day, and personally performed and documented my assessment and findings in the medical record. Still very weak. WBC recovered with neupogen. Stop neupogen. Monitor CBC. Continue abx per ID. HFE test is still pending. Problem Qualifiers (1) GI bleed: Qualified Codes: K92.2 - Gastrointestinal hemorrhage, unspecified Maria Elena Gómez Oct 06, 2017 11:16 Shaun Gerardo MD Oct 06, 2017 17:10
--- NOTE | 2017-10-06 13:10 | HHI.IDPN ---
Subjective Subjective Remarks pt is now having hematuria seen by urologist: o/p cystoscopy was recommended hypothermic Antibiotics Ertapenem Allergies: Coded Allergies: No Known Allergies (Unverified , 09/28/17) Objective . Vital Signs Date Time Temp Pulse Resp B/P (MAP) Pulse Ox O2 Delivery O2 Flow Rate FiO2 10/06/17 12:00 95.8 102 18 114/57 (76) 93 10/06/17 10:30 92 Nasal Cannula 6.00 10/06/17 08:00 95.4 92 20 99/55 (70) 98 10/06/17 08:00 Nasal Cannula 4.00 10/06/17 08:00 92 10/06/17 05:25 90 Nasal Cannula 6.00 10/06/17 04:40 88 132/67 (88) 10/06/17 03:35 104 10/06/17 00:00 98.6 93 16 108/54 (72) 96 10/05/17 23:55 92 10/05/17 21:56 98.7 123 18 110/72 (85) 94 10/05/17 21:55 Nasal Cannula 4.00 10/05/17 21:30 95 Nasal Cannula 6.00 10/05/17 20:02 101 10/05/17 16:00 95.7 101 24 111/64 (80) 93 10/05/17 14:50 100 . Laboratory Tests Test 10/05/17 07:08 10/06/17 06:37 White Blood Count 3.4 TH/MM3 7.5 TH/MM3 Red Blood Count 2.78 MIL/MM3 3.06 MIL/MM3 Hemoglobin 9.0 GM/DL 9.6 GM/DL Hematocrit 26.8 % 29.2 % Mean Corpuscular Volume 96.3 FL 95.2 FL Mean Corpuscular Hemoglobin 32.2 PG 31.3 PG Mean Corpuscular Hemoglobin Concent 33.5 % 32.9 % Red Cell Distribution Width 19.0 % 18.7 % Platelet Count 29 TH/MM3 25 TH/MM3 Mean Platelet Volume 8.2 FL 8.0 FL Neutrophils (%) (Auto) 72.2 % 84.5 % Lymphocytes (%) (Auto) 20.0 % 10.3 % Monocytes (%) (Auto) 7.4 % 4.8 % Eosinophils (%) (Auto) 0.1 % 0.2 % Basophils (%) (Auto) 0.3 % 0.2 % Neutrophils # (Auto) 2.4 TH/MM3 6.3 TH/MM3 Lymphocytes # (Auto) 0.7 TH/MM3 0.8 TH/MM3 Monocytes # (Auto) 0.3 TH/MM3 0.4 TH/MM3 Eosinophils # (Auto) 0.0 TH/MM3 0.0 TH/MM3 Basophils # (Auto) 0.0 TH/MM3 0.0 TH/MM3 CBC Comment AUTO DIFF AUTO DIFF Differential Comment AUTO DIFF CONFIRMED AUTO DIFF CONFIRMED Toxic Granulation 2+ Platelet Estimate LOW Platelet Morphology Comment NORMAL Ovalocytes 1+ 1+ Hematology Comments Laboratory Tests Test 10/04/17 14:45 10/05/17 07:08 10/06/17 06:37 Prostate Specific Antigen 0.15 NG/ML Blood Urea Nitrogen 14 MG/DL 13 MG/DL Creatinine 0.26 MG/DL 0.26 MG/DL Random Glucose 95 MG/DL 104 MG/DL Calcium Level 8.7 MG/DL 8.2 MG/DL Sodium Level 145 MEQ/L 149 MEQ/L Potassium Level 4.0 MEQ/L 3.2 MEQ/L Chloride Level 107 MEQ/L 111 MEQ/L Carbon Dioxide Level 32.5 MEQ/L 32.2 MEQ/L Anion Gap 6 MEQ/L 6 MEQ/L Estimat Glomerular Filtration Rate 354 ML/MIN 354 ML/MIN Imaging Last Impressions Renal Ultrasound 10/04/17 0000 Signed Impressions: Service Date/Time: Wednesday, October 04, 2017 10:29 - CONCLUSION: 1. Small nonobstructing 3 mm calyceal calculus in the mid left kidney. 2. 1.4 cm cyst in the inferior pole of the right kidney. 3. Small amount of ascites. Rohan Leigh MD Aorta CTA 10/01/17 1556 Signed Impressions: Service Date/Time: Sunday, October 01, 2017 17:11 - CONCLUSION: 1. 7.3 cm infrarenal abdominal aortic aneurysm with laminated wall as described above. Findings suggest a contained rupture which may be chronic and possible associated aortic wall inflammation indicating aortitis. 2. Chronic liver disease characteristic of cirrhosis. 3. Splenomegaly 4. Cholelithiasis 5. Moderate ascites 6. No evidence of portal vein thrombosis or Budd-Chiari syndrome. 7. COPD with bibasilar airspace disease and parapneumonic effusions. 1. Herve Berumen MD Thoracentesis Ultrasound 10/01/17 0000 Signed Impressions: Service Date/Time: Sunday, October 01, 2017 11:27 - CONCLUSION: Uncomplicated ultrasound guided thoracentesis. Marc Alfredo MD Cyst Biopsy Asp-Paracentesis US 10/01/17 0000 Signed Impressions: Service Date/Time: Sunday, October 01, 2017 09:53 - CONCLUSION: Uncomplicated ultrasound guided paracentesis. Marc Alfredo MD Chest X-Ray 10/01/17 0000 Signed Impressions: Service Date/Time: Sunday, October 01, 2017 13:22 - CONCLUSION: 1. No significant pneumothorax with near resolution of left-sided pleural effusion following thoracentesis. Rohan Leigh MD Abdomen/Pelvis CT 09/30/17 0000 Signed Impressions: Service Date/Time: Sunday, October 01, 2017 02:21 - CONCLUSION: 1. 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 2. Moderate pleural effusions and moderate amount of abdominal pelvic ascites. 3. 2 calcified gallstones. David Blunt MD Chest CT 09/28/17 0000 Signed Impressions: Service Date/Time: Friday, September 29, 2017 01:23 - CONCLUSION: 1. The dominant opacity seen on recent chest x-ray represents loculated pleural effusion in the superior major fissure. 2. Small bilateral pleural effusions, mild consolidative infiltrates in the right lower lung, and right upper abdominal ascites. 3. Calcified gallstones. David Blunt MD Physical Exam CONSTITUTIONAL/GENERAL: This is a thin desheveled patient, in no apparent distress. TUBES/LINES/DRAINS: SKIN: No jaundice, rashes, or lesions. EYES: Pupils equal and round and reactive. Extraocular motions intact. No scleral icterus. No injection or drainage. Fundi not examined. ENT: Hearing grossly normal. Nose without bleeding or purulent drainage. Throat without visible erythema, exudates, masses, or lesions. Oral mucosae moist, poor dentition CARDIOVASCULAR: Regular rate and rhythm without murmurs, gallops, or rubs. No JVD. Peripheral pulses symmetric. Well perfused perifery RESPIRATORY/CHEST: Symmetric, unlabored respirations. Clear to auscultation. Breath sounds equal bilaterally. No wheezes, rales, or rhonchi. GASTROINTESTINAL: Abdomen soft, non-tender, nondistended at all. No hepato- splenomegaly, or palpable masses. No guarding. Bowel sounds present. GENITOURINARY: Without palpable bladder distension. MUSCULOSKELETAL: Extremities without clubbing, cyanosis, or edema. No joint tenderness or effusion noted. No calf tenderness. No mottling or clubbing. NEUROLOGICAL: Awake and alert. Motor and sensory grossly within normal limits. Follows commands. clear speech. Moves all extremities. PSYCHIATRIC: No obvious anxiety/depression. no apparent hallucinations or other psychotic thought process. 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 SBP per ANC criteria (260), clx P, negative - final AAA, ? fistula Vascular surgeon consulted Symptomatic anemia from GI bleed Hypotension - resolved with IVF LIver cirrhosis with splenomegaly pancytopenia 2/2 splenomegaly: resolved with neupogen tx Hypothermia cont ertapenem x 6-8 weeks rechk blood clx kayley SINGH and pharmacist Marleni Giraldo MD Oct 06, 2017 13:10
[2017-10-06] MEDS: ERTAPENEM INJ 1,000 MG in SODIUM CHLORIDE 0.9% INJ 100 ML IV SCH (13:34)
--- NOTE | 2017-10-06 14:36 | HHI.GIFU ---
Subjective Remarks Pt resting in bed, napping. Says he doesn't feel like eating. (Mel Shannon) Objective Vitals I&O Vital Signs Date Time Temp Pulse Resp B/P (MAP) Pulse Ox O2 Delivery O2 Flow Rate FiO2 10/06/17 12:00 95.8 102 18 114/57 (76) 93 10/06/17 10:30 92 Nasal Cannula 6.00 10/06/17 08:00 95.4 92 20 99/55 (70) 98 10/06/17 08:00 Nasal Cannula 4.00 10/06/17 08:00 92 10/06/17 05:25 90 Nasal Cannula 6.00 10/06/17 04:40 88 132/67 (88) 10/06/17 03:35 104 10/06/17 00:00 98.6 93 16 108/54 (72) 96 10/05/17 23:55 92 10/05/17 21:56 98.7 123 18 110/72 (85) 94 10/05/17 21:55 Nasal Cannula 4.00 10/05/17 21:30 95 Nasal Cannula 6.00 10/05/17 20:02 101 10/05/17 16:00 95.7 101 24 111/64 (80) 93 10/05/17 14:50 100 I/O 10/05/17 10/05/17 10/05/17 10/06/17 10/06/17 10/06/17 06:59 14:59 22:59 06:59 14:59 22:59 Intake Total 1240 ml 1000 ml 1200 ml 1000 ml Output Total 450 ml 1300 ml Balance 1240 ml 1000 ml 750 ml -300 ml Intake Oral 240 ml 200 ml IV Total 1000 ml 1000 ml 1000 ml 1000 ml Output Urine Total 450 ml 1300 ml # Voids 2 # Bowel Movements 0 1 Laboratory Laboratory Tests Test 10/06/17 06:37 White Blood Count 7.5 Red Blood Count 3.06 Hemoglobin 9.6 Hematocrit 29.2 Mean Corpuscular Volume 95.2 Mean Corpuscular Hemoglobin 31.3 Mean Corpuscular Hemoglobin Concent 32.9 Red Cell Distribution Width 18.7 Platelet Count 25 Mean Platelet Volume 8.0 Neutrophils (%) (Auto) 84.5 Lymphocytes (%) (Auto) 10.3 Monocytes (%) (Auto) 4.8 Eosinophils (%) (Auto) 0.2 Basophils (%) (Auto) 0.2 Neutrophils # (Auto) 6.3 Lymphocytes # (Auto) 0.8 Monocytes # (Auto) 0.4 Eosinophils # (Auto) 0.0 Basophils # (Auto) 0.0 CBC Comment AUTO DIFF Differential Comment AUTO DIFF CONFIRMED Ovalocytes 1+ Hematology Comments Blood Urea Nitrogen 13 Creatinine 0.26 Random Glucose 104 Calcium Level 8.2 Sodium Level 149 Potassium Level 3.2 Chloride Level 111 Carbon Dioxide Level 32.2 Anion Gap 6 Estimat Glomerular Filtration Rate 354 Date/Time Source Procedure Growth Status 09/30/17 17:19 Blood Peripheral Aerobic Blood Culture - Final NO GROWTH IN 5 DAYS Complete 09/30/17 17:19 Blood Peripheral Anaerobic Blood Culture - Final NO GROWTH IN 5 DAYS Complete 10/01/17 13:10 Fluid Pleural Fluid Fungal Smear - Final NO FUNGAL ELEMENTS SEEN. Resulted 10/01/17 13:10 Fluid Pleural Fluid Fungal Culture Pending Resulted Imaging Last Impressions Renal Ultrasound 10/04/17 0000 Signed Impressions: Service Date/Time: Wednesday, October 04, 2017 10:29 - CONCLUSION: 1. Small nonobstructing 3 mm calyceal calculus in the mid left kidney. 2. 1.4 cm cyst in the inferior pole of the right kidney. 3. Small amount of ascites. Rohan Leigh MD Aorta CTA 10/01/17 1556 Signed Impressions: Service Date/Time: Sunday, October 01, 2017 17:11 - CONCLUSION: 1. 7.3 cm infrarenal abdominal aortic aneurysm with laminated wall as described above. Findings suggest a contained rupture which may be chronic and possible associated aortic wall inflammation indicating aortitis. 2. Chronic liver disease characteristic of cirrhosis. 3. Splenomegaly 4. Cholelithiasis 5. Moderate ascites 6. No evidence of portal vein thrombosis or Budd-Chiari syndrome. 7. COPD with bibasilar airspace disease and parapneumonic effusions. 1. Herve Berumen MD Thoracentesis Ultrasound 10/01/17 0000 Signed Impressions: Service Date/Time: Sunday, October 01, 2017 11:27 - CONCLUSION: Uncomplicated ultrasound guided thoracentesis. Marc Alfredo MD Cyst Biopsy Asp-Paracentesis US 10/01/17 0000 Signed Impressions: Service Date/Time: Sunday, October 01, 2017 09:53 - CONCLUSION: Uncomplicated ultrasound guided paracentesis. Marc Alfredo MD Chest X-Ray 10/01/17 0000 Signed Impressions: Service Date/Time: Sunday, October 01, 2017 13:22 - CONCLUSION: 1. No significant pneumothorax with near resolution of left-sided pleural effusion following thoracentesis. Rohan Leigh MD Abdomen/Pelvis CT 09/30/17 0000 Signed Impressions: Service Date/Time: Sunday, October 01, 2017 02:21 - CONCLUSION: 1. 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 2. Moderate pleural effusions and moderate amount of abdominal pelvic ascites. 3. 2 calcified gallstones. David Blunt MD Chest CT 09/28/17 0000 Signed Impressions: Service Date/Time: Friday, September 29, 2017 01:23 - CONCLUSION: 1. The dominant opacity seen on recent chest x-ray represents loculated pleural effusion in the superior major fissure. 2. Small bilateral pleural effusions, mild consolidative infiltrates in the right lower lung, and right upper abdominal ascites. 3. Calcified gallstones. David Blunt MD Physical Exam HEENT: Normocephalic; atraumatic CHEST: wheezes, rhonchi CARDIAC: RRR. ABDOMEN: Soft, mild distended, nontender; bowel sounds active x 4. EXTREMITIES: BLE edema, 1+ SKIN: Normal; no rash; no jaundice. 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 S/p paracentesis 1L fluid removed. SAAG 1.1 borderline likely d/t portal HTN. Liver w/u in progress. - Anemia, melena, heme positive stools. HH 6.1/18.3 on admission. S/P EGD and colonoscopy found hiatal hernia, gastric ulcer, erosive gastritis, colon polyp - adenomatous polyp. 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 LFT WNL. HCV negative. - Thrombocytopenia. worsening - Lung mass? Heavy tobacco use. Chest Xray 09/28/17--1. Mass versus loculated pleural fluid in the fissure of the right mid lung. CT of the chest is recommended, preferably with intravenous contrast. 2. Small free-flowing right pleural effusion at the base. 3. Left lung is clear. 4. Tortuous thoracic aorta. CT of chest loculated pleural effusion, bilat effusions, mild consolidative infiltrates, right upper abd ascites, gallstones. s/p thoracentesis - E coli bacteremia - ID consulted, ?aortitis Unclear source 10/03/17-- Pt complaining of decreased appetite, liver work up still pending including HCV quant, continue with current management 10/05/17--Continues to have decreased appetite. HCV negative. ANDRE negative. ASMA , AMA pending. [id number], Ceruloplasmin pending. Hemochromatosis w/u pending. HH 07/15.8. Platelets 29. 10/06/17 - HH stable. decreased appetite. liver w/u still pending. Now having hematuria. PLAN: - await rest of liver w/u - await hemochromatosis testing - Monitor HH, transfuse as needed - Notify GI of active bleeding - Protonix IV BID - Repeat EGD in 2 months - Repeat Colonoscopy in 2 years - Supportive care Patient seen and examined by Dr. Altman and myself and this note is written on his behalf. (Mel Shannon) Physician Comments Agree with the above. further recommendations to follow. (Amber Altman MD) Mel Shannon Oct 06, 2017 14:36 Amber Altman MD Oct 06, 2017 16:41
[2017-10-07] VITALS (9 sets, daily range): BP systolic 111–137; BP diastolic 56–79; PULSE 92–108; RESP 16–20; TEMP 96–97.5; O2SAT 92–97
[2017-10-07] MEDS: SODIUM CHLOR 0.9% 1000 ML INJ 1,000 ML IV SCH ×3 (01:26→22:10)
[2017-10-07] MEDS: PANTOPRAZOLE SODIUM 40 MG VIAL IV PUSH SCH ×2 (01:26→15:25)
[2017-10-07] MEDS: RESP: ALBUTEROL 2.5 MG/IPRATROPIUM 0.5 MG NEB (SCH) NEB ×4 (04:27→20:29)
--- NOTE | 2017-10-07 08:00 | PD.ONC.PN ---
Subjective Subjective Remarks Feels better. No abdominal pain. No CP/SOB. Still weak. Objective Data Date Time Temp Pulse Resp B/P (MAP) Pulse Ox O2 Delivery O2 Flow Rate FiO2 10/07/17 04:29 93 Nasal Cannula 6.00 10/07/17 04:00 96.0 108 20 124/79 (94) 95 10/07/17 00:00 96.3 99 20 133/69 (90) 94 10/06/17 20:10 Nasal Cannula 4.00 10/06/17 20:02 97.1 92 17 112/64 (80) 92 10/06/17 19:48 89 10/06/17 16:41 93 Nasal Cannula 6.00 10/06/17 16:00 96.8 89 17 132/64 (86) 91 10/06/17 12:00 95.8 102 18 114/57 (76) 93 10/06/17 10:30 92 Nasal Cannula 6.00 10/06/17 08:00 95.4 92 20 99/55 (70) 98 10/06/17 08:00 Nasal Cannula 4.00 10/06/17 08:00 92 10/07/17 10/07/17 10/07/17 06:59 14:59 22:59 Intake Total 1240 ml Output Total 250 ml Balance 990 ml Result Diagram: 10/06/1737 10/06/1737 Culture Results Microbiology Date/Time Source Procedure Growth Status 10/06/17 15:14 Blood Peripheral Aerobic Blood Culture Pending Received 10/06/17 15:14 Blood Peripheral Anaerobic Blood Culture Pending Received 10/06/17 15:05 Blood Peripheral Aerobic Blood Culture Pending Received 10/06/17 15:05 Blood Peripheral Anaerobic Blood Culture Pending Received Administered Medications Medications (Trade) Dose Ordered Sig/Jailene Route PRN Reason Start Time Stop Time Status Last Admin Dose Admin Sodium Chloride (NS Flush) 2 ml BID IV FLUSH 09/28/17 13:45 10/06/17 08:56 Pantoprazole Sodium (Protonix Inj) 40 mg Q12H IV PUSH 09/28/17 14:00 10/07/17 01:26 Collagenase (Santyl Oint) 1 applic DAILY TOPICAL 09/29/17 12:45 10/06/17 08:56 Diphenhydramine HCl (Benadryl) 25 mg Q4H PRN PO SEE LABEL COMMENTS 10/01/17 09:30 10/01/17 09:30 Diphenhydramine HCl (Benadryl 2% Cream) 1 applic TID PRN TOPICAL ITCHING 10/02/17 10:00 10/02/17 10:23 Folic Acid (Folate) 1 mg DAILY PO 10/02/17 11:00 10/06/17 08:54 Sodium Chloride 1,000 ml @ 100 mls/hr Q10H IV 10/04/17 13:45 10/07/17 01:26 Albuterol/ Ipratropium (Duoneb Neb) 1 ampule Q6HR NEB NEB 10/05/17 10:00 10/07/17 04:27 Ertapenem 1000 mg/ Sodium Chloride 100 ml @ 200 mls/hr Q24H IV 10/06/17 14:00 10/06/17 13:34 Objective Remarks GENERAL: Cachectic SKIN: Warm and dry. HEAD: Normocephalic. EYES: No scleral icterus. No injection or drainage. NECK: Supple, trachea midline. No JVD or lymphadenopathy. LYMPHATIC: No adenopathy. CARDIOVASCULAR: Regular rate and rhythm without murmurs. RESPIRATORY: Breath sounds equal bilaterally. No accessory muscle use. GASTROINTESTINAL: Abdomen soft, non-tender, nondistended. EXTREMITIES: No cyanosis, SCD noted MUSCULOSKELETAL: Adequate muscle tone. NEUROLOGICAL: No obvious focal deficit. Awake, alert, and oriented x3. Assessment/Plan Problem List: (1) Pancytopenia ICD Codes: D61.818 - Other pancytopenia Plan: --Neupogen started 10/03, and stopped 10/06. Neutropenia resolved. --Pancytopenia due to cirrhosis and splenomegaly. --history of hepatitis C diagnosed in the . --CT angiogram showed cirrhotic-appearing liver with splenomegaly and moderate ascites. --likely has baseline pancytopenia due to cirrhosis and splenomegaly with further drop in the white blood cell and platelet count due to recent sepsis. (2) GI bleed ICD Codes: K92.2 - Gastrointestinal hemorrhage, unspecified Status: Acute Plan: GI following --GI bleed likely due NSAID use. --Upper endoscopy showed clean-based gastric ulcer and gastritis. No active bleeding noted. (3) Hepatitis C ICD Codes: B19.20 - Unspecified viral hepatitis C without hepatic coma Plan: --History of hepatitis C --HCV [place] negative --CT showed cirrhotic liver. --alpha-fetoprotein WNL (4) Ascites ICD Codes: R18.8 - Other ascites Plan: --had paracentesis with removal of 1100 cc of yellow fluid. --appeared due to portal hypertension. (5) Pleural effusion ICD Codes: J90 - Pleural effusion, not elsewhere classified Plan: -- had thoracentesis with removal of 750 cc of dark yellow fluid. The fluid appeared to be transudative. (6) AAA (abdominal aortic aneurysm) ICD Codes: I71.4 - Abdominal aortic aneurysm, without rupture Plan: -- Infrarenal abdominal aortic aneurysm. -- may have a contained rupture on the CT angiogram. --vascular following Assessment 66y/o male with pancytopenia and failure to thrive. Hepatitis C. --Elevated ferritin level.-->likely due to underlying cirrhosis. doubt that he has hereditary hemochromatosis. Plan 1. monitor CBC, transfuse prn. 2. await hemochromatosis labs. Problem Qualifiers (1) GI bleed: Qualified Codes: K92.2 - Gastrointestinal hemorrhage, unspecified Shaun Gerardo MD Oct 07, 2017 08:00
[2017-10-07] MEDS: SODIUM CHLORIDE 0.9% FLUSH 10 ML FLUSH IV FLUSH SCH ×2 (08:05→21:00)
[2017-10-07] MEDS: FOLIC ACID 1 MG TAB PO SCH (08:05)
[2017-10-07] MEDS: COLLAGENASE OINT 30 GM TUBE TOPICAL SCH (08:07)
[2017-10-07 11:13] LABS: HEMOGLOBIN 8.7 GM/DL (13.0-17.0); MEAN CELL VOLUME 96.1 FL (80.0-100.0); MEAN CORPUSCULAR HEMOGLOBIN 32.1 PG (27.0-34.0); MEAN CORPUSCULAR HGB CONC 33.4 % (32.0-36.0); MEAN PLATELET VOLUME 8.2 FL (7.0-11.0); PLATELET COUNT 32 TH/MM3 (150-450); RED BLOOD COUNT 2.71 MIL/MM3 (4.50-5.90); RED CELL DISTRIBUTION WIDTH 19.2 % (11.6-17.2); WHITE BLOOD COUNT 2.5 TH/MM3 (4.0-11.0)
[2017-10-07 11:43] LABS: BICARBONATE 34.8 MEQ/L (21.0-32.0); CALCIUM 8.2 MG/DL (8.5-10.1); CREATININE 0.23 MG/DL (0.60-1.30)
[2017-10-07 13:19] LABS: ALPHA-1-ANTITRYPSIN 148 mg/dL (100 - 190)
[2017-10-07 14:17] LABS: SMOOTH MUSCLE TOTAL AUTOABS Negative (Negative)
--- NOTE | 2017-10-07 15:21 | HHI.GIFU ---
Subjective Remarks Pt resting in bed. He says he is tired and doesn't want to eat. + BM, soft. (Mel Shannon) Objective Vitals I&O Vital Signs Date Time Temp Pulse Resp B/P (MAP) Pulse Ox O2 Delivery O2 Flow Rate FiO2 10/07/17 12:00 96.6 101 20 127/56 (79) 92 10/07/17 08:00 97.0 98 20 111/65 (80) 96 10/07/17 04:29 93 Nasal Cannula 6.00 10/07/17 04:00 96.0 108 20 124/79 (94) 95 10/07/17 00:00 96.3 99 20 133/69 (90) 94 10/06/17 20:10 Nasal Cannula 4.00 10/06/17 20:02 97.1 92 17 112/64 (80) 92 10/06/17 19:48 89 10/06/17 16:41 93 Nasal Cannula 6.00 10/06/17 16:00 96.8 89 17 132/64 (86) 91 I/O 10/06/17 10/06/17 10/06/17 10/07/17 10/07/17 10/07/17 07:00 15:00 23:00 07:00 15:00 23:00 Intake Total 1000 ml 100 ml 2550 ml 1240 ml Output Total 1300 ml 700 ml 250 ml Balance -300 ml 100 ml 1850 ml 990 ml Intake Oral 1550 ml 240 ml IV Total 1000 ml 100 ml 1000 ml 1000 ml Output Urine Total 1300 ml 700 ml 250 ml # Bowel Movements 1 0 Laboratory Laboratory Tests Test 10/07/17 09:24 White Blood Count 2.5 Red Blood Count 2.71 Hemoglobin 8.7 Hematocrit 26.0 Mean Corpuscular Volume 96.1 Mean Corpuscular Hemoglobin 32.1 Mean Corpuscular Hemoglobin Concent 33.4 Red Cell Distribution Width 19.2 Platelet Count 32 Mean Platelet Volume 8.2 Blood Urea Nitrogen 10 Creatinine 0.23 Random Glucose 84 Calcium Level 8.2 Sodium Level 145 Potassium Level 3.3 Chloride Level 108 Carbon Dioxide Level 34.8 Anion Gap 2 Estimat Glomerular Filtration Rate 408 Date/Time Source Procedure Growth Status 10/06/17 15:14 Blood Peripheral Aerobic Blood Culture - Preliminary NO GROWTH IN 1 DAY Resulted 10/06/17 15:14 Blood Peripheral Anaerobic Blood Culture - Preliminary NO GROWTH IN 1 DAY Resulted 10/01/17 13:10 Fluid Pleural Fluid Fungal Smear - Final NO FUNGAL ELEMENTS SEEN. Resulted 10/01/17 13:10 Fluid Pleural Fluid Fungal Culture Pending Resulted Physical Exam HEENT: Normocephalic; atraumatic CHEST: wheezes, rhonchi CARDIAC: RRR. ABDOMEN: Soft, mild distended, nontender; bowel sounds active x 4. EXTREMITIES: BLE edema, 1+ SKIN: Normal; no rash; no jaundice. 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 S/p paracentesis 1L fluid removed. SAAG 1.1 borderline likely d/t portal HTN. Liver w/u in progress. - Anemia, melena, heme positive stools. HH 6.1/18.3 on admission. S/P EGD and colonoscopy found hiatal hernia, gastric ulcer, erosive gastritis, colon polyp - adenomatous polyp. 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 LFT WNL. HCV negative. - Thrombocytopenia. worsening - Lung mass? Heavy tobacco use. Chest Xray 09/28/17--1. Mass versus loculated pleural fluid in the fissure of the right mid lung. CT of the chest is recommended, preferably with intravenous contrast. 2. Small free-flowing right pleural effusion at the base. 3. Left lung is clear. 4. Tortuous thoracic aorta. CT of chest loculated pleural effusion, bilat effusions, mild consolidative infiltrates, right upper abd ascites, gallstones. s/p thoracentesis - E coli bacteremia - ID consulted, ?aortitis Unclear source 10/03/17-- Pt complaining of decreased appetite, liver work up still pending including HCV quant, continue with current management 10/05/17--Continues to have decreased appetite. HCV negative. ANDRE negative. ASMA , AMA pending. [id number], Ceruloplasmin pending. Hemochromatosis w/u pending. HH 07/15.8. Platelets 29. 10/06/17 - HH stable. decreased appetite. liver w/u still pending. Now having hematuria. 10/07/17 - Hgb dropped today but over all relatively stable. hemochromatosis, ceruloplasmin, AMA still pending. Not eating much. PLAN: - await rest of liver w/u - await hemochromatosis testing - Monitor HH, transfuse as needed - Notify GI of active bleeding - Protonix IV BID - continue Supportive care Patient seen and examined by Dr. Altman and myself and this note is written on his behalf. (Mel Shannon) Physician Comments Seen and examined, plan as above, pending CLD work up, will follow up with you. (Amber Altman MD) Mel Shannon Oct 07, 2017 15:21 Amber Altman MD Oct 08, 2017 03:25
[2017-10-07] MEDS: ERTAPENEM INJ 1,000 MG in SODIUM CHLORIDE 0.9% INJ 100 ML IV SCH (15:26)
[2017-10-07] MEDS ORDERED: POTASSIUM CHLORIDE 10 MEQ CAP PO ONE (15:30)
--- NOTE | 2017-10-07 15:45 | HHI.FPPN ---
Subjective Remarks Patient seen and examined this morning. He reports he is having fecal incontinence. This occurs during the day, is mostly liquid. Does not occur while sleeping. He states he is doing well otherwise. No nausea, vomiting, fever , chills, headache, abdominal pain, chest pain, lightheadedness, dizziness, shortness of breath. No other complaints. Objective Vitals Vital Signs Date Time Temp Pulse Resp B/P (MAP) Pulse Ox O2 Delivery O2 Flow Rate FiO2 10/07/17 15:33 Nasal Cannula 6.00 10/07/17 12:00 96.6 101 20 127/56 (79) 92 10/07/17 08:00 97.0 98 20 111/65 (80) 96 10/07/17 04:29 93 Nasal Cannula 6.00 10/07/17 04:00 96.0 108 20 124/79 (94) 95 10/07/17 00:00 96.3 99 20 133/69 (90) 94 10/06/17 20:10 Nasal Cannula 4.00 10/06/17 20:02 97.1 92 17 112/64 (80) 92 10/06/17 19:48 89 10/06/17 16:41 93 Nasal Cannula 6.00 10/06/17 16:00 96.8 89 17 132/64 (86) 91 I/O 10/06/17 10/06/17 10/06/17 10/07/17 10/07/17 10/07/17 07:00 15:00 23:00 07:00 15:00 23:00 Intake Total 1000 ml 100 ml 2550 ml 1240 ml Output Total 1300 ml 700 ml 250 ml 600 ml Balance -300 ml 100 ml 1850 ml 990 ml -600 ml Intake Oral 1550 ml 240 ml IV Total 1000 ml 100 ml 1000 ml 1000 ml Output Urine Total 1300 ml 700 ml 250 ml 600 ml # Bowel Movements 1 0 Result Diagram: 10/07/1792310/07/17923 Objective Remarks CONSTITUTIONAL/GEN: Cachectic male, pale and weak EYES: conjunctiva very pale, PERRLA, EOMI. ENT: Mouth and pharynx show moist MM, upper teeth missing, many lower teeth absent, those remaining are in poor repair NECK: Supple LUNGS: Coarse breath sounds throughout CARDIOVASCULAR: RR without murmur or gallop. 1+ edema to knee bilaterally. GI/ABD: soft without masses, without organomegaly. Widened abdominal aorta. NEURO: No focal deficits. SKIN: color very pale, lichenification both ankles, sacral wound unstagable, 3cm x 6cm HEME/LYMPH: no bruising, petechia or significant adenopathy MUSC: back is normal in appearance. PSYCH/MENTAL STATUS: Alert and oriented x 3. Other:catheter in place A/P Assessment and Plan 66 yr old M Hep C, hx of heavy smoking (2ppd for 61 yrs), and chronic aspirin use presented to the ED with anemia and black tarry stools secondary to suspected GI bleed. Patient transferred to ICU 09/30 for ESBL E.coli sepsis. Patient hemodynamically stable for transfer to med/surg 10/03. Discharge Planning Case Management to assist with SNF placement Unclear timetable. Problem List: (1) Bacteremia ICD Codes: R78.81 - Bacteremia Status: Acute Plan: Patient transfer to ICU on 09/30 for ESBL E.coli sepsis. Patient hemodynamically stable for transfer back to med/surg floor 10/03. ID consulted, appreciate recommendations * E.coli ESBL sepsis, source is likely GI, questionable SBP * Continue Ertapenem 1000 mg IV q24h (10/02) x 6-8 weeks per ID History: Patient met sepsis criteria 09/29 due to tachycardic at 95-113 and hypotension 86/53 Lactic acid 1.4 09/29, Repeat lactic acid 1.5 s/p 500cc bolus of NS, MIVF 140mls/hr 09/29 Vancomycin 1,250mg IV q12h (09/29-10/01) Zosyn 4.5 gm IV q6h (started 09/30-09/22) Azithromycin 250mg PO daily (10/01-10/04) Critical Care consulted, appreciate recs. * CT abd/pelvis w/o contrast done 09/30 revealed moderate size left pleural effusion, ascites, 5cm infrarenal abdominal aortic aneurysm and mesenteric stranding. * CTA 10/01 7.3 cm AAA, contained reputure, cirrhosis, splenomegaly, cholelithiasis, moderate ascites, no evident of protal vein thrombosis or Budd- Chiari syndrome, COPD with bibasilar airspace disease and parapneumonic effusions * 2-D echo - 60-65% * Left pleural effusion- thoracentesis with removal of 750 cc of dark yellow fluid. Fluid appeared transudative. * Ascites- paracentesis with removal of 1100 cc of yellow fluids. This appeared due to portal hypertension. * Possibility of aortoenteric fistula (2) AAA (abdominal aortic aneurysm) ICD Codes: I71.4 - Abdominal aortic aneurysm, without rupture Plan: CT abd/pelvis w/o contrast done 09/30 5cm infrarenal abdominal aortic aneurysm Aorta CTA 7.3 cm infrarenal AAA with laminated wall, contained rupture which may be chronic and possible associated aortic wall inflammation indicating aortitis Vascular surgery consulted, appreciate recs No intervention for AAA until infection cleared Continue to follow at this time (3) Pancytopenia ICD Codes: D61.818 - Other pancytopenia Plan: WBC trending down since admission, Hb stable, plts trending down since admission Hem/Onc consulted, appreciate recs * Likely has baseline pancytopenia due to cirrhosis and splenomegaly with further crop in the WBC and plt count due to recent sepsis * monitor CBC, WBC improved 10/06, Neupogen 10/03-10/06 * WBC 2.5 on 10/07, await hematology regulations. * Continue daily folate 2 units of RBCS transfused 09/28, 1 unit of RBCs transfused 09/29, and 1 unit of RBCs transfused 09/30 1 unit of FFP transfused 09/30 1 unit of Leuk-redu pheresis plts transfused 10/01 prior to thoracentesis (4) GI bleed ICD Codes: K92.2 - Gastrointestinal hemorrhage, unspecified Status: Acute Plan: Hb of 6.1 upon admission,1 month hx of black tarry stools, chronic aspirin use 2 units of RBCS transfused 09/28, 1 unit of RBCs transfused 09/29, and 1 unit of RBCs transfused 09/30 Hb stable Hemoccult performed by RN in ED on 09/28- positive GI reconsulted for mesenteric stranding and ascites, appreciate recommendations * EGD/colonoscopy demonstrated hiatal hernia, gastric ulcer, erosive gastritis and colon polyp * Duo/stomach biopsy- Stomach, reactive/chemical gastropathy with intestinal metaplasia. Colon, sigmoid, adenomatous polyp * Check HCV quant, less than 15 IUs/ ml, less than 1.18 log IUs/ml * Alpha-feto protein wnl * Elevated ferritin levels due to underlying cirrhosis most likely * Continue Protonix 40mg IV q12h * Await ASMA, AMA * Await [id number], Ceruloplasmin * Await Hemochromatosis w/u * Continue Protonix IV 40 mg IV q12h * Avoid NSAIDs and anticoagulation * EGD in 2 months * Colonoscopy in 2 years (5) Hematuria ICD Codes: R31.9 - Hematuria, unspecified Plan: -UA 09/30 moderate occult blood, unlikely traumatic, patient has condom catheter -PSA wnl 0.15 -Renal US 10/04 demonstrated small nonobstructing 3mm calyceal calculus in the mid left kidney. 1.4 cm cyst in the inferior pole of the right kidney. -Urology consulted, recs appreciated Urologic impression: gross hematuria (now resolved) of indeterminate etiology; abnormal coagulation profile and thrombocytopenia likely contributing to the hematuria * manage conservatively for now * office follow up after hospital discharge when overall medical condition improved for cystoscopic evaluation [phone] * will be available as needed during present hospitalization (6) Hepatitis C ICD Codes: B19.20 - Unspecified viral hepatitis C without hepatic coma Plan: Patient reports history of Hep C. Patient reports being treated in the s. LFTs wnl. alpha fetoprotein wnl Check HCV quant, less than 15 IUs/ml, less than 1.18 log IUs/ml (7) Abnormal chest x-ray ICD Codes: R93.8 - Abnormal findings on diagnostic imaging of other specified body structures Plan: Heavy smoker. Mass 2.51 x 3.86 found on CXR. Small free-flowing right pleural effusion at the base. CT revealed dominant opacity seen on recent CXR represents loculated pleural effusion in the superior major fissure. Small b/l pleural effusions, mild consolidative infiltrates in the right lower lung, and right upper abdominal ascites. Calcified gallstones. (8) Hypokalemia ICD Codes: E87.6 - Hypokalemia Plan: Improving Replace orally if needed Continue to monitor (9) RALF (acute kidney injury) ICD Codes: N17.9 - Acute kidney failure, unspecified Plan: RALF secondary to dehydration BUN 28 and Cr 0.53 upon admission Improving Continue to monitor (10) Sacral wound ICD Codes: S31.000A - Unspecified open wound of lower back and pelvis without penetration into retroperitoneum, initial encounter Plan: Unstageable sacral wound, 3cm x 6cm Wound care consulted, recommendations appreciated 1) Cleanse sacral wound with normal saline,pat dry. 2) Apply skin prep to gibran wound 3) Santyl josé thick to wound bed 4) Cover with Maxorb 2 cut to fit. 5) Cover with dry dressing (boarder gauze) 6) Change dressing Daily (11) Nutrition, metabolism, and development symptoms ICD Codes: R63.8 - Other symptoms and signs concerning food and fluid intake Plan: Fluids: 100mls/hr NS due to poor appetite Diet: Regular Basic Electrolytes: monitor and replace as needed Other: Case management consulted GI ppx: Protonix 40mg IV q12h DVT ppx: SCDs Problem Qualifiers (1) GI bleed: Qualified Codes: K92.2 - Gastrointestinal hemorrhage, unspecified Edilson Shoemaker MD R1 Oct 07, 2017 15:45
[2017-10-07] MEDS ORDERED: POTASSIUM CHLORIDE 20 MEQ CONTROLLED RELEASE TAB PO ONE (16:00)
--- NOTE | 2017-10-07 16:31 | HHI.IDPN ---
Subjective Subjective Remarks pt is telling me that he is not feeling well, but wont ketan RN reports that pt essentially does not want to do anything New + Bl clx @ 1 day, GPC in pairs, clusters afebriele with a tendency of hypotension Antibiotics Ertapenem Allergies: Coded Allergies: No Known Allergies (Unverified , 09/28/17) Objective . Vital Signs Date Time Temp Pulse Resp B/P (MAP) Pulse Ox O2 Delivery O2 Flow Rate FiO2 10/07/17 15:33 Nasal Cannula 6.00 10/07/17 12:00 96.6 101 20 127/56 (79) 92 10/07/17 08:00 97.0 98 20 111/65 (80) 96 10/07/17 04:29 93 Nasal Cannula 6.00 10/07/17 04:00 96.0 108 20 124/79 (94) 95 10/07/17 00:00 96.3 99 20 133/69 (90) 94 10/06/17 20:10 Nasal Cannula 4.00 10/06/17 20:02 97.1 92 17 112/64 (80) 92 10/06/17 19:48 89 10/06/17 16:41 93 Nasal Cannula 6.00 10/07/17 10/07/17 10/08/17 15:00 23:00 07:00 Output Total 600 ml Balance -600 ml Output Urine Total 600 ml . Laboratory Tests Test 10/06/17 06:37 10/07/17 09:24 White Blood Count 7.5 TH/MM3 2.5 TH/MM3 Red Blood Count 3.06 MIL/MM3 2.71 MIL/MM3 Hemoglobin 9.6 GM/DL 8.7 GM/DL Hematocrit 29.2 % 26.0 % Mean Corpuscular Volume 95.2 FL 96.1 FL Mean Corpuscular Hemoglobin 31.3 PG 32.1 PG Mean Corpuscular Hemoglobin Concent 32.9 % 33.4 % Red Cell Distribution Width 18.7 % 19.2 % Platelet Count 25 TH/MM3 32 TH/MM3 Mean Platelet Volume 8.0 FL 8.2 FL Neutrophils (%) (Auto) 84.5 % Lymphocytes (%) (Auto) 10.3 % Monocytes (%) (Auto) 4.8 % Eosinophils (%) (Auto) 0.2 % Basophils (%) (Auto) 0.2 % Neutrophils # (Auto) 6.3 TH/MM3 Lymphocytes # (Auto) 0.8 TH/MM3 Monocytes # (Auto) 0.4 TH/MM3 Eosinophils # (Auto) 0.0 TH/MM3 Basophils # (Auto) 0.0 TH/MM3 CBC Comment AUTO DIFF Differential Comment AUTO DIFF CONFIRMED Ovalocytes 1+ Hematology Comments Laboratory Tests Test 10/06/17 06:37 10/07/17 09:24 Blood Urea Nitrogen 13 MG/DL 10 MG/DL Creatinine 0.26 MG/DL 0.23 MG/DL Random Glucose 104 MG/DL 84 MG/DL Calcium Level 8.2 MG/DL 8.2 MG/DL Sodium Level 149 MEQ/L 145 MEQ/L Potassium Level 3.2 MEQ/L 3.3 MEQ/L Chloride Level 111 MEQ/L 108 MEQ/L Carbon Dioxide Level 32.2 MEQ/L 34.8 MEQ/L Anion Gap 6 MEQ/L 2 MEQ/L Estimat Glomerular Filtration Rate 354 ML/MIN 408 ML/MIN Microbiology Date/Time Source Procedure Growth Status 10/06/17 15:14 Blood Peripheral Aerobic Blood Culture - Preliminary NO GROWTH IN 1 DAY Resulted 10/06/17 15:14 Blood Peripheral Anaerobic Blood Culture - Preliminary NO GROWTH IN 1 DAY Resulted 10/06/17 15:05 Blood Peripheral Aerobic Blood Culture - Preliminary Gram Positive Cocci Resulted 10/06/17 15:05 Blood Peripheral Anaerobic Blood Culture - Preliminary NO GROWTH IN 1 DAY Resulted Imaging Last Impressions Renal Ultrasound 10/04/17 0000 Signed Impressions: Service Date/Time: Wednesday, October 04, 2017 10:29 - CONCLUSION: 1. Small nonobstructing 3 mm calyceal calculus in the mid left kidney. 2. 1.4 cm cyst in the inferior pole of the right kidney. 3. Small amount of ascites. Rohan Leigh MD Aorta CTA 10/01/17 1556 Signed Impressions: Service Date/Time: Sunday, October 01, 2017 17:11 - CONCLUSION: 1. 7.3 cm infrarenal abdominal aortic aneurysm with laminated wall as described above. Findings suggest a contained rupture which may be chronic and possible associated aortic wall inflammation indicating aortitis. 2. Chronic liver disease characteristic of cirrhosis. 3. Splenomegaly 4. Cholelithiasis 5. Moderate ascites 6. No evidence of portal vein thrombosis or Budd-Chiari syndrome. 7. COPD with bibasilar airspace disease and parapneumonic effusions. 1. Herve Berumen MD Thoracentesis Ultrasound 10/01/17 0000 Signed Impressions: Service Date/Time: Sunday, October 01, 2017 11:27 - CONCLUSION: Uncomplicated ultrasound guided thoracentesis. Marc Alfredo MD Cyst Biopsy Asp-Paracentesis US 10/01/17 0000 Signed Impressions: Service Date/Time: Sunday, October 01, 2017 09:53 - CONCLUSION: Uncomplicated ultrasound guided paracentesis. Marc Alfredo MD Chest X-Ray 10/01/17 0000 Signed Impressions: Service Date/Time: Sunday, October 01, 2017 13:22 - CONCLUSION: 1. No significant pneumothorax with near resolution of left-sided pleural effusion following thoracentesis. Rohan Leigh MD Abdomen/Pelvis CT 09/30/17 0000 Signed Impressions: Service Date/Time: Sunday, October 01, 2017 02:21 - CONCLUSION: 1. 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 2. Moderate pleural effusions and moderate amount of abdominal pelvic ascites. 3. 2 calcified gallstones. David Blunt MD Chest CT 09/28/17 0000 Signed Impressions: Service Date/Time: Friday, September 29, 2017 01:23 - CONCLUSION: 1. The dominant opacity seen on recent chest x-ray represents loculated pleural effusion in the superior major fissure. 2. Small bilateral pleural effusions, mild consolidative infiltrates in the right lower lung, and right upper abdominal ascites. 3. Calcified gallstones. David Blunt MD Physical Exam CONSTITUTIONAL/GENERAL: This is a thin desheveled patient, in no apparent distress. TUBES/LINES/DRAINS: SKIN: No jaundice, rashes, or lesions. EYES: Pupils equal and round and reactive. Extraocular motions intact. No scleral icterus. No injection or drainage. Fundi not examined. ENT: Hearing grossly normal. Nose without bleeding or purulent drainage. Throat without visible erythema, exudates, masses, or lesions. Oral mucosae moist, poor dentition CARDIOVASCULAR: Regular rate and rhythm without murmurs, gallops, or rubs. No JVD. Peripheral pulses symmetric. Well perfused perifery RESPIRATORY/CHEST: Symmetric, unlabored respirations. Clear to auscultation. Breath sounds equal bilaterally. No wheezes, rales, or rhonchi. GASTROINTESTINAL: Abdomen soft, non-tender, nondistended at all. No hepato- splenomegaly, or palpable masses. No guarding. Bowel sounds present. GENITOURINARY: Without palpable bladder distension. Maynard in place with slightly bloody urine MUSCULOSKELETAL: Extremities without clubbing, cyanosis, or edema. No joint tenderness or effusion noted. No calf tenderness. No mottling or clubbing. NEUROLOGICAL: Awake and alert. Motor and sensory grossly within normal limits. Follows commands. clear speech. Moves all extremities. 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 SBP per ANC criteria (260), clx P, negative - final AAA, ? fistula Vascular surgeon consulted Symptomatic anemia from GI bleed Hypotension - resolved with IVF LIver cirrhosis with splenomegaly pancytopenia 2/2 splenomegaly: resolved with neupogen tx Hypothermia Hematuria - urologist ff: reconmmended o/p cystosciopy New issue: GPC bactreremia, low grade, @ this point unknown clin significance - no central lines cont ertapenem x 6-8 weeks add vancomycin fu blood clx kayley RN and pharmacist Marleni Giraldo MD Oct 07, 2017 16:31
[2017-10-07] MEDS ORDERED: Vancomycin Consult Pharmacy 1 EA OTHER SCH (16:45)
[2017-10-07] MEDS: VANCOMYCIN 1,000 MG/NS 250 ML IV SCH ×2 (17:46)
[2017-10-07 23:02] LABS: HEREDITARY HEMOCHROM SPECIMEN WB Whole Blood
[2017-10-08] VITALS (8 sets, daily range): BP systolic 104–140; BP diastolic 60–71; PULSE 75–99; RESP 16–18; TEMP 96.3–98.3; O2SAT 92–97
[2017-10-08] MEDS: PANTOPRAZOLE SODIUM 40 MG VIAL IV PUSH SCH ×2 (03:10→12:07)
[2017-10-08] MEDS: VANCOMYCIN 1,000 MG/NS 250 ML IV SCH ×4 (03:10→09:00)
[2017-10-08] MEDS: RESP: ALBUTEROL 2.5 MG/IPRATROPIUM 0.5 MG NEB (SCH) NEB ×4 (03:46→20:40)
[2017-10-08] MEDS ORDERED: FILGRASTIM 300 MCG/ML VIAL SQ ONE (07:30)
--- NOTE | 2017-10-08 07:42 | PD.ONC.PN ---
Subjective Subjective Remarks Patient seen and examined, vital signs, labs, medications and imaging scans reviewed, previous notes including [facility] consultant notes and family medicine hospitalist service progress notes reviewed. Subjectively; the patient reports feeling generally weak, reports a poor appetite but he denies pain. He denies difficulty breathing, overt bleeding or chest pain. He denies fevers or chills. Blood work indicates declining WBC count, chronically low platelet count and chronic anemia. Objective Data Date Time Temp Pulse Resp B/P (MAP) Pulse Ox O2 Delivery O2 Flow Rate FiO2 10/08/17 04:00 96.3 80 16 128/69 (88) 96 10/08/17 00:00 96.5 91 17 140/71 (94) 96 10/07/17 23:45 100 10/07/17 20:00 97.4 92 16 130/67 (88) 93 10/07/17 17:29 93 Nasal Cannula 6.00 10/07/17 16:00 97.5 96 18 137/64 (88) 97 10/07/17 15:33 Nasal Cannula 6.00 10/07/17 12:00 96.6 101 20 127/56 (79) 92 10/07/17 08:00 97.0 98 20 111/65 (80) 96 10/08/17 10/08/17 10/08/17 07:00 15:00 23:00 Intake Total 360 ml Output Total 1800 ml Balance -1440 ml Result Diagram: 10/07/1724 10/07/17 0924 Laboratory Results Laboratory Tests Test 10/07/17 09:24 White Blood Count 2.5 TH/MM3 Red Blood Count 2.71 MIL/MM3 Hemoglobin 8.7 GM/DL Hematocrit 26.0 % Mean Corpuscular Volume 96.1 FL Mean Corpuscular Hemoglobin 32.1 PG Mean Corpuscular Hemoglobin Concent 33.4 % Red Cell Distribution Width 19.2 % Platelet Count 32 TH/MM3 Mean Platelet Volume 8.2 FL Blood Urea Nitrogen 10 MG/DL Creatinine 0.23 MG/DL Random Glucose 84 MG/DL Calcium Level 8.2 MG/DL Sodium Level 145 MEQ/L Potassium Level 3.3 MEQ/L Chloride Level 108 MEQ/L Carbon Dioxide Level 34.8 MEQ/L Anion Gap 2 MEQ/L Estimat Glomerular Filtration Rate 408 ML/MIN Culture Results Microbiology Date/Time Source Procedure Growth Status 10/06/17 15:14 Blood Peripheral Aerobic Blood Culture - Preliminary NO GROWTH IN 1 DAY Resulted 10/06/17 15:14 Blood Peripheral Anaerobic Blood Culture - Preliminary NO GROWTH IN 1 DAY Resulted 10/06/17 15:05 Blood Peripheral Aerobic Blood Culture - Preliminary Staph Sp Coagulase Negative Resulted 10/06/17 15:05 Blood Peripheral Anaerobic Blood Culture - Preliminary NO GROWTH IN 1 DAY Resulted Administered Medications Medications (Trade) Dose Ordered Sig/Jailene Route PRN Reason Start Time Stop Time Status Last Admin Dose Admin Sodium Chloride (NS Flush) 2 ml BID IV FLUSH 09/28/17 13:45 10/07/17 08:05 Pantoprazole Sodium (Protonix Inj) 40 mg Q12H IV PUSH 09/28/17 14:00 10/08/17 03:10 Collagenase (Santyl Oint) 1 applic DAILY TOPICAL 09/29/17 12:45 10/07/17 08:07 Diphenhydramine HCl (Benadryl) 25 mg Q4H PRN PO SEE LABEL COMMENTS 10/01/17 09:30 10/01/17 09:30 Diphenhydramine HCl (Benadryl 2% Cream) 1 applic TID PRN TOPICAL ITCHING 10/02/17 10:00 10/02/17 10:23 Folic Acid (Folate) 1 mg DAILY PO 10/02/17 11:00 10/07/17 08:05 Sodium Chloride 1,000 ml @ 100 mls/hr Q10H IV 10/04/17 13:45 10/07/17 22:10 Albuterol/ Ipratropium (Duoneb Neb) 1 ampule Q6HR NEB NEB 10/05/17 10:00 10/07/17 04:27 Ertapenem 1000 mg/ Sodium Chloride 100 ml @ 200 mls/hr Q24H IV 10/06/17 14:00 10/07/17 15:26 Vancomycin HCl 1000 mg/Sodium Chloride 250 ml @ 250 mls/hr Q8H IV 10/07/17 18:00 10/08/17 03:10 Objective Remarks GENERAL: Cachectic, elderly male, appears chronically ill and somewhat disheveled appearance. SKIN: Warm and dry. HEAD: Normocephalic. EYES: No scleral icterus. No injection or drainage. NECK: Supple, trachea midline. No JVD or lymphadenopathy. LYMPHATIC: No adenopathy. CARDIOVASCULAR: Regular rate and rhythm without murmurs. RESPIRATORY: Breath sounds equal bilaterally. No accessory muscle use. Poor inspiratory effort, decreased bibasilar breath sounds. GASTROINTESTINAL: Abdomen soft, non-tender, nondistended. Splenomegaly is noted , free fluid in the abdomen is noted. EXTREMITIES: No cyanosis, SCD noted MUSCULOSKELETAL: Generalized muscle atrophy. NEUROLOGICAL: No obvious focal deficit. Awake, alert, and oriented x3. Assessment/Plan Problem List: (1) Pancytopenia ICD Codes: D61.818 - Other pancytopenia Plan: --Neupogen started 10/03, and stopped 10/06. Neutropenia resolved temporarily but his WBC count was noted to be decreasing as of 10/08/2017. I will dose him with Neupogen on an as-needed basis, Neupogen 300 g subcutaneous was ordered on 10/08/2017. --Pancytopenia due to cirrhosis and splenomegaly; with resultant splenic sequestration. --history of hepatitis C diagnosed in the ; he tells me he was treated for the hepatitis C and this was "cleared". Repeat hepatitis C titers this hospitalization indicate low circulating hepatitis C vital titers. --CT angiogram showed cirrhotic-appearing liver with splenomegaly and moderate ascites. --likely has baseline pancytopenia due to cirrhosis and splenomegaly with further drop in the white blood cell and platelet count due to recent sepsis. (2) GI bleed ICD Codes: K92.2 - Gastrointestinal hemorrhage, unspecified Status: Acute Plan: GI following --GI bleed likely due NSAID use. --Upper endoscopy showed clean-based gastric ulcer and gastritis. No active bleeding noted. (3) Hepatitis C ICD Codes: B19.20 - Unspecified viral hepatitis C without hepatic coma Plan: --History of hepatitis C --HCV [place] negative --CT showed cirrhotic liver. --alpha-fetoprotein WNL (4) Ascites ICD Codes: R18.8 - Other ascites Plan: --had paracentesis with removal of 1100 cc of yellow fluid. --appeared due to portal hypertension. (5) Pleural effusion ICD Codes: J90 - Pleural effusion, not elsewhere classified Plan: -- had thoracentesis with removal of 750 cc of dark yellow fluid. The fluid appeared to be transudative. (6) AAA (abdominal aortic aneurysm) ICD Codes: I71.4 - Abdominal aortic aneurysm, without rupture Plan: -- Infrarenal abdominal aortic aneurysm. -- may have a contained rupture on the CT angiogram. --vascular following Assessment 66y/o male with pancytopenia and failure to thrive. Hepatitis C. --Elevated ferritin level.-->likely due to underlying cirrhosis. doubt that he has hereditary hemochromatosis. Plan 1. Leukopenia: Neupogen dosed on 10/08/2017. Continue monitoring CBC every day or every other day. Hematology will continue following with you. Problem Qualifiers (1) GI bleed: Qualified Codes: K92.2 - Gastrointestinal hemorrhage, unspecified Lon Chavez MD Oct 08, 2017 07:42
[2017-10-08] MEDS: SODIUM CHLOR 0.9% 1000 ML INJ 1,000 ML IV SCH ×3 (09:00→22:57)
[2017-10-08] MEDS: SODIUM CHLORIDE 0.9% FLUSH 10 ML FLUSH IV FLUSH SCH ×2 (09:00→23:00)
[2017-10-08] MEDS: COLLAGENASE OINT 30 GM TUBE TOPICAL SCH (09:01)
[2017-10-08] MEDS: FOLIC ACID 1 MG TAB PO SCH (09:01)
--- NOTE | 2017-10-08 10:02 | HHI.FPPN ---
Subjective Remarks Patient seen and examined this morning. No acute events overnight. Patient reports continued loose stools with bowel incontinence. Denies any blood in stools or dark stools. No abdominal pain. No fever/chills, nausea or vomiting. Otherwise, no complaints. Denies any chest pain, shortness of breath, leg pain. Objective Vitals Vital Signs Date Time Temp Pulse Resp B/P (MAP) Pulse Ox O2 Delivery O2 Flow Rate FiO2 10/08/17 09:38 97 Nasal Cannula 6.00 10/08/17 08:00 96.6 95 18 130/62 (84) 97 10/08/17 04:00 96.3 80 16 128/69 (88) 96 10/08/17 00:00 96.5 91 17 140/71 (94) 96 10/07/17 23:45 100 10/07/17 20:00 97.4 92 16 130/67 (88) 93 10/07/17 17:29 93 Nasal Cannula 6.00 10/07/17 16:00 97.5 96 18 137/64 (88) 97 10/07/17 15:33 Nasal Cannula 6.00 10/07/17 12:00 96.6 101 20 127/56 (79) 92 I/O 10/07/17 10/07/17 10/07/17 10/08/17 10/08/17 10/08/17 07:00 15:00 23:00 07:00 15:00 23:00 Intake Total 1240 ml 770 ml 360 ml Output Total 250 ml 700 ml 1800 ml Balance 990 ml 70 ml -1440 ml Intake Oral 240 ml 420 ml 360 ml IV Total 1000 ml 350 ml Output Urine Total 250 ml 700 ml 1800 ml # Bowel Movements 0 1 Result Diagram: 10/07/1792310/07/17923 Objective Remarks CONSTITUTIONAL/GEN: Cachectic male, pale and weak ENT: Mouth and pharynx show moist MM, upper teeth missing, many lower teeth absent, those remaining are in poor repair LUNGS: Coarse breath sounds throughout CARDIOVASCULAR: RR without murmur or gallop. GI/ABD: soft without masses, without organomegaly. NEURO: No focal deficits. SKIN: color very pale, lichenification both ankles, sacral wound unstagable, 3cm x 6cm HEME/LYMPH: no bruising, petechia or significant adenopathy PSYCH/MENTAL STATUS: Alert and oriented x 3. Other:catheter in place A/P Assessment and Plan 66 yr old M Hep C, hx of heavy smoking (2ppd for 61 yrs), and chronic aspirin use presented to the ED with anemia and black tarry stools secondary to suspected GI bleed. Patient transferred to ICU 09/30 for ESBL E.coli sepsis. Patient hemodynamically stable for transfer to med/surg 10/03. Discharge Planning Case Management to assist with SNF placement Unclear timetable. Problem List: (1) Bacteremia ICD Codes: R78.81 - Bacteremia Status: Acute Plan: Patient transfer to ICU on 09/30 for ESBL E.coli sepsis. Patient hemodynamically stable for transfer back to med/surg floor 10/03. 1 positive blood culture on 10/06-Staph coagulase negative ID consulted, appreciate recommendations * E.coli ESBL sepsis, source is likely GI, questionable SBP * Continue Ertapenem 1000 mg IV q24h (10/02) x 6-8 weeks per ID * Restarted Vancomycin (10/07 - ) History: Patient met sepsis criteria 09/29 due to tachycardic at 95-113 and hypotension 86/53 Lactic acid 1.4 09/29, Repeat lactic acid 1.5 s/p 500cc bolus of NS, MIVF 140mls/hr 09/29 Vancomycin 1,250mg IV q12h (09/29-10/01) Zosyn 4.5 gm IV q6h (started 09/30-09/22) Azithromycin 250mg PO daily (10/01-10/04) Critical Care consulted, appreciate recs. * CT abd/pelvis w/o contrast done 09/30 revealed moderate size left pleural effusion, ascites, 5cm infrarenal abdominal aortic aneurysm and mesenteric stranding. * CTA 10/01 7.3 cm AAA, contained reputure, cirrhosis, splenomegaly, cholelithiasis, moderate ascites, no evident of protal vein thrombosis or Budd- Chiari syndrome, COPD with bibasilar airspace disease and parapneumonic effusions * 2-D echo - 60-65% * Left pleural effusion- thoracentesis with removal of 750 cc of dark yellow fluid. Fluid appeared transudative. * Ascites- paracentesis with removal of 1100 cc of yellow fluids. This appeared due to portal hypertension. * Possibility of aortoenteric fistula (2) Pancytopenia ICD Codes: D61.818 - Other pancytopenia Plan: WBC trending down since admission, Hb stable, plts trending down since admission Hem/Onc consulted, appreciate recs * Likely has baseline pancytopenia due to cirrhosis and splenomegaly with further crop in the WBC and plt count due to recent sepsis * monitor CBC, WBC improved 10/06, Neupogen 10/03-10/06 * Continue daily folate * Neupogen given again today, give as needed 2 units of RBCS transfused 09/28, 1 unit of RBCs transfused 09/29, and 1 unit of RBCs transfused 09/30 1 unit of FFP transfused 09/30 1 unit of Leuk-redu pheresis plts transfused 10/01 prior to thoracentesis (3) AAA (abdominal aortic aneurysm) ICD Codes: I71.4 - Abdominal aortic aneurysm, without rupture Plan: CT abd/pelvis w/o contrast done 09/30 5cm infrarenal abdominal aortic aneurysm Aorta CTA 7.3 cm infrarenal AAA with laminated wall, contained rupture which may be chronic and possible associated aortic wall inflammation indicating aortitis Vascular surgery consulted, appreciate recs No intervention for AAA until infection cleared Continue to follow at this time (4) GI bleed ICD Codes: K92.2 - Gastrointestinal hemorrhage, unspecified Status: Acute Plan: Hb of 6.1 upon admission,1 month hx of black tarry stools, chronic aspirin use 2 units of RBCS transfused 09/28, 1 unit of RBCs transfused 09/29, and 1 unit of RBCs transfused 09/30 Hb stable Hemoccult performed by RN in ED on 09/28- positive GI reconsulted for mesenteric stranding and ascites, appreciate recommendations * EGD/colonoscopy demonstrated hiatal hernia, gastric ulcer, erosive gastritis and colon polyp * Duo/stomach biopsy- Stomach, reactive/chemical gastropathy with intestinal metaplasia. Colon, sigmoid, adenomatous polyp * Check HCV quant, less than 15 IUs/ ml, less than 1.18 log IUs/ml * Alpha-feto protein wnl * Elevated ferritin levels due to underlying cirrhosis most likely * Continue Protonix 40mg IV q12h * AMSA, AMA negative * [id number] * Hemochromatosis workup negative * Avoid NSAIDs and anticoagulation * EGD in 2 months * Colonoscopy in 2 years (5) Hematuria ICD Codes: R31.9 - Hematuria, unspecified Plan: -UA 09/30 moderate occult blood, unlikely traumatic, patient has condom catheter -PSA wnl 0.15 -Renal US 10/04 demonstrated small nonobstructing 3mm calyceal calculus in the mid left kidney. 1.4 cm cyst in the inferior pole of the right kidney. -Urology consulted, recs appreciated Urologic impression: gross hematuria (now resolved) of indeterminate etiology; abnormal coagulation profile and thrombocytopenia likely contributing to the hematuria * manage conservatively for now * office follow up after hospital discharge when overall medical condition improved for cystoscopic evaluation [phone] * will be available as needed during present hospitalization (6) Hepatitis C ICD Codes: B19.20 - Unspecified viral hepatitis C without hepatic coma Plan: Patient reports history of Hep C. Patient reports being treated in the s. LFTs wnl. alpha fetoprotein wnl Check HCV quant, less than 15 IUs/ml, less than 1.18 log IUs/ml (7) Abnormal chest x-ray ICD Codes: R93.8 - Abnormal findings on diagnostic imaging of other specified body structures Plan: Heavy smoker. Mass 2.51 x 3.86 found on CXR. Small free-flowing right pleural effusion at the base. CT revealed dominant opacity seen on recent CXR represents loculated pleural effusion in the superior major fissure. Small b/l pleural effusions, mild consolidative infiltrates in the right lower lung, and right upper abdominal ascites. Calcified gallstones. (8) Hypokalemia ICD Codes: E87.6 - Hypokalemia Plan: Improving Replace orally if needed Continue to monitor (9) RALF (acute kidney injury) ICD Codes: N17.9 - Acute kidney failure, unspecified Plan: RALF secondary to dehydration BUN 28 and Cr 0.53 upon admission Improving Continue to monitor (10) Sacral wound ICD Codes: S31.000A - Unspecified open wound of lower back and pelvis without penetration into retroperitoneum, initial encounter Plan: Unstageable sacral wound, 3cm x 6cm Wound care consulted, recommendations appreciated 1) Cleanse sacral wound with normal saline,pat dry. 2) Apply skin prep to gibran wound 3) Santyl josé thick to wound bed 4) Cover with Maxorb 2 cut to fit. 5) Cover with dry dressing (boarder gauze) 6) Change dressing Daily (11) Nutrition, metabolism, and development symptoms ICD Codes: R63.8 - Other symptoms and signs concerning food and fluid intake Plan: Fluids: 100mls/hr NS due to poor appetite Diet: Regular Basic Electrolytes: monitor and replace as needed Other: Case management consulted GI ppx: Protonix 40mg IV q12h DVT ppx: SCDs Problem Qualifiers (1) GI bleed: Qualified Codes: K92.2 - Gastrointestinal hemorrhage, unspecified John Gotti MD, R2 Oct 08, 2017 10:02
[2017-10-08] MEDS: ERTAPENEM INJ 1,000 MG in SODIUM CHLORIDE 0.9% INJ 100 ML IV SCH (12:07)
--- NOTE | 2017-10-08 14:07 | HHI.GIFU ---
Subjective Remarks Pt resting in bed, in NAD. Napping. Not eating much, says he's tired. (Mel Shannon) Objective Vitals I&O Vital Signs Date Time Temp Pulse Resp B/P (MAP) Pulse Ox O2 Delivery O2 Flow Rate FiO2 10/08/17 12:00 96.6 98 18 127/68 (87) 97 10/08/17 09:38 97 Nasal Cannula 6.00 10/08/17 09:00 Nasal Cannula 6.00 10/08/17 08:00 96.6 95 18 130/62 (84) 97 10/08/17 04:00 96.3 80 16 128/69 (88) 96 10/08/17 00:00 96.5 91 17 140/71 (94) 96 10/07/17 23:45 100 10/07/17 20:00 97.4 92 16 130/67 (88) 93 10/07/17 17:29 93 Nasal Cannula 6.00 10/07/17 16:00 97.5 96 18 137/64 (88) 97 10/07/17 15:33 Nasal Cannula 6.00 I/O 10/07/17 10/07/17 10/07/17 10/08/17 10/08/17 10/08/17 07:00 15:00 23:00 07:00 15:00 23:00 Intake Total 1240 ml 770 ml 360 ml Output Total 250 ml 700 ml 1800 ml Balance 990 ml 70 ml -1440 ml Intake Oral 240 ml 420 ml 360 ml IV Total 1000 ml 350 ml Output Urine Total 250 ml 700 ml 1800 ml # Bowel Movements 0 1 Laboratory Date/Time Source Procedure Growth Status 10/06/17 15:14 Blood Peripheral Aerobic Blood Culture - Preliminary NO GROWTH IN 2 DAYS Resulted 10/06/17 15:14 Blood Peripheral Anaerobic Blood Culture - Preliminary NO GROWTH IN 2 DAYS Resulted 10/01/17 13:10 Fluid Pleural Fluid Fungal Smear - Final NO FUNGAL ELEMENTS SEEN. Resulted 10/01/17 13:10 Fluid Pleural Fluid Fungal Culture - Preliminary NO GROWTH IN 1 WEEK Resulted Imaging Last Impressions Renal Ultrasound 10/04/17 0000 Signed Impressions: Service Date/Time: Wednesday, October 04, 2017 10:29 - CONCLUSION: 1. Small nonobstructing 3 mm calyceal calculus in the mid left kidney. 2. 1.4 cm cyst in the inferior pole of the right kidney. 3. Small amount of ascites. Rohan Leigh MD Aorta CTA 10/01/17 1556 Signed Impressions: Service Date/Time: Sunday, October 01, 2017 17:11 - CONCLUSION: 1. 7.3 cm infrarenal abdominal aortic aneurysm with laminated wall as described above. Findings suggest a contained rupture which may be chronic and possible associated aortic wall inflammation indicating aortitis. 2. Chronic liver disease characteristic of cirrhosis. 3. Splenomegaly 4. Cholelithiasis 5. Moderate ascites 6. No evidence of portal vein thrombosis or Budd-Chiari syndrome. 7. COPD with bibasilar airspace disease and parapneumonic effusions. 1. Herve Berumen MD Thoracentesis Ultrasound 10/01/17 0000 Signed Impressions: Service Date/Time: Sunday, October 01, 2017 11:27 - CONCLUSION: Uncomplicated ultrasound guided thoracentesis. Marc Alfredo MD Cyst Biopsy Asp-Paracentesis US 10/01/17 0000 Signed Impressions: Service Date/Time: Sunday, October 01, 2017 09:53 - CONCLUSION: Uncomplicated ultrasound guided paracentesis. Marc Alfredo MD Chest X-Ray 10/01/17 0000 Signed Impressions: Service Date/Time: Sunday, October 01, 2017 13:22 - CONCLUSION: 1. No significant pneumothorax with near resolution of left-sided pleural effusion following thoracentesis. Rohan Leigh MD Abdomen/Pelvis CT 09/30/17 0000 Signed Impressions: Service Date/Time: Sunday, October 01, 2017 02:21 - CONCLUSION: 1. 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 2. Moderate pleural effusions and moderate amount of abdominal pelvic ascites. 3. 2 calcified gallstones. David Blunt MD Chest CT 09/28/17 0000 Signed Impressions: Service Date/Time: Friday, September 29, 2017 01:23 - CONCLUSION: 1. The dominant opacity seen on recent chest x-ray represents loculated pleural effusion in the superior major fissure. 2. Small bilateral pleural effusions, mild consolidative infiltrates in the right lower lung, and right upper abdominal ascites. 3. Calcified gallstones. David Blunt MD Physical Exam HEENT: Normocephalic; atraumatic CHEST: wheezes, rhonchi CARDIAC: RRR. ABDOMEN: Soft, mild distended, nontender; bowel sounds active x 4. EXTREMITIES: BLE edema, 1+ SKIN: Normal; no rash; no jaundice. [employer]: Lethargic (Mel Shannon OFFICIAL [employer]ER) Assessment and Plan Plan ASSESSMENT: - Ascites - per CTA, moderate effusions and pelvic ascites, 5cm AAA with soft tissue thickening, mesenteric induration, cirrhosis. S/p paracentesis 1L fluid removed. SAAG 1.1 borderline likely d/t portal HTN. Liver w/u in progress. - Anemia, melena, heme positive stools. S/P EGD and colonoscopy found hiatal hernia, gastric ulcer, erosive gastritis, colon polyp - adenomatous polyp. 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 LFT WNL. HCV negative. - Pancytopenia - on neupogen per hem/onc - E coli bacteremia - ID following, aortitis & GPC bcx 10/03/17-- Pt complaining of decreased appetite, liver work up still pending including HCV quant, continue with current management 10/05/17--Continues to have decreased appetite. HCV negative. ANDRE negative. ASMA , AMA pending. [id number], Ceruloplasmin pending. Hemochromatosis w/u pending. HH 07/15.8. Platelets 29. 10/06/17 - HH stable. decreased appetite. liver w/u still pending. Now having hematuria. 10/07/17 - Hgb dropped today but over all relatively stable. hemochromatosis, ceruloplasmin, AMA still pending. Not eating much. 10/08/17 - HH trending down slowly, no obvious bleeding. hem/onc following for pancytopenia. pt not eating much, tired. Hfe genes neg. ceruloplasmin and AMA still pending PLAN: - await AMA and ceruloplasmin - Monitor HH, transfuse as needed - Notify GI of active bleeding - Protonix IV BID - continue Supportive care - not much to add from GI standpoint at this time, will sign off for now. Please reconsult if needed. Patient seen and examined by Dr. Altman and myself and this note is written on his behalf. (Mel Shannon) Physician Comments Seen and examined, will S/O for now, please notify us if needed. (Amber Altman MD) Mel Shannon Oct 08, 2017 14:07 Amber Altman MD Oct 09, 2017 06:17
[2017-10-08 14:49] LABS: HEMATOCRIT 31.2 % (39.0-51.0); HEMOGLOBIN 10.2 GM/DL (13.0-17.0); MEAN CELL VOLUME 96.4 FL (80.0-100.0); MEAN CORPUSCULAR HEMOGLOBIN 31.6 PG (27.0-34.0); MEAN CORPUSCULAR HGB CONC 32.8 % (32.0-36.0); MEAN PLATELET VOLUME 7.7 FL (7.0-11.0); PLATELET COUNT 37 TH/MM3 (150-450); RED BLOOD COUNT 3.23 MIL/MM3 (4.50-5.90); RED CELL DISTRIBUTION WIDTH 19.3 % (11.6-17.2); WHITE BLOOD COUNT 3.5 TH/MM3 (4.0-11.0)
[2017-10-08 15:12] LABS: BICARBONATE 32.4 MEQ/L (21.0-32.0); CALCIUM 8.1 MG/DL (8.5-10.1); CREATININE 0.19 MG/DL (0.60-1.30)
[2017-10-08 15:35] LABS: BANDS 5 % (0-6); CORRECTED NUCLEATED RBC 2 /100 WBC (0-0); LYMPHOCYTES 16 % (9-44); MONOCYTES 8 % (0-8); NEUTROPHIL # MANUAL DIFF 2.6 TH/MM3 (1.8-7.7); NUCLEATED RED BLOOD CELL 2 (0-0); POLYS (SEG NEUTROPHILS) 70 % (16-70)
[2017-10-08 15:36] LABS: OVALOCYTES 1+ (NORMAL); TOXIC VACUOLATION PRESENT (NONE SEEN)
[2017-10-08] MEDS ORDERED: PHARMACY ORDERED LAB ONE (17:45)
[2017-10-09] VITALS (8 sets, daily range): BP systolic 103–120; BP diastolic 52–73; PULSE 16–107; RESP 16–21; TEMP 95.2–98.2; O2SAT 90–99
[2017-10-09] MEDS: PANTOPRAZOLE SODIUM 40 MG VIAL IV PUSH SCH ×2 (01:16→14:00)
[2017-10-09] MEDS: RESP: ALBUTEROL 2.5 MG/IPRATROPIUM 0.5 MG NEB (SCH) NEB ×2 (03:17→09:30)
[2017-10-09 08:29] LABS: AUTOMATED NEUTROPHIL # 3.3 TH/MM3 (1.8-7.7); BASOPHIL % 0.4 % (0.0-2.0); EOSINOPHIL % 0.5 % (0.0-4.0); HEMATOCRIT 24.3 % (39.0-51.0); HEMOGLOBIN 8.1 GM/DL (13.0-17.0); LYMPH % 18.3 % (9.0-44.0); LYMPHOCYTE # 0.8 TH/MM3 (1.0-4.8); MEAN CELL VOLUME 96.2 FL (80.0-100.0); MEAN CORPUSCULAR HGB CONC 33.3 % (32.0-36.0); MEAN PLATELET VOLUME 8.2 FL (7.0-11.0); MONO % 4.1 % (0.0-8.0); MONOCYTE # 0.2 TH/MM3 (0-0.9); NEUT % 76.7 % (16.0-70.0); PLATELET COUNT 38 TH/MM3 (150-450); RED BLOOD COUNT 2.52 MIL/MM3 (4.50-5.90); RED CELL DISTRIBUTION WIDTH 19.1 % (11.6-17.2); WHITE BLOOD COUNT 4.3 TH/MM3 (4.0-11.0)
[2017-10-09 08:55] LABS: BICARBONATE 32.1 MEQ/L (21.0-32.0); CREATININE 0.27 MG/DL (0.60-1.30)
[2017-10-09] MEDS: SODIUM CHLORIDE 0.9% FLUSH 10 ML FLUSH IV FLUSH SCH ×2 (09:13→21:29)
[2017-10-09] MEDS: FOLIC ACID 1 MG TAB PO SCH (09:13)
[2017-10-09] MEDS: COLLAGENASE OINT 30 GM TUBE TOPICAL SCH (09:13)
[2017-10-09] MEDS: SODIUM CHLOR 0.9% 1000 ML INJ 1,000 ML IV SCH ×2 (09:26→21:29)
[2017-10-09 09:29] LABS: BANDS 13 % (0-6); LYMPHOCYTES 11 % (9-44); MONOCYTES 5 % (0-8); NEUTROPHIL # MANUAL DIFF 3.6 TH/MM3 (1.8-7.7); POLYS (SEG NEUTROPHILS) 70 % (16-70); TOXIC GRANULATION 2+ (NORMAL); TOXIC VACUOLATION PRESENT (NONE SEEN)
--- NOTE | 2017-10-09 09:33 | HHI.FPPN ---
Subjective Remarks Patient seen and examined this morning. He reports he continues to have fecal incontinence. This occurs during the day, is mostly liquid. Does not occur while sleeping. No blood or black specks. He states he is doing well otherwise. No nausea, vomiting, fever, chills, headache, abdominal pain, chest pain, lightheadedness, dizziness, shortness of breath. No other complaints. Objective Vitals Vital Signs Date Time Temp Pulse Resp B/P (MAP) Pulse Ox O2 Delivery O2 Flow Rate FiO2 10/09/17 08:00 95.2 98 18 113/52 (72) 93 10/09/17 04:40 98.2 76 18 108/70 (83) 95 10/09/17 01:28 98.2 16 16 103/68 (80) 99 10/08/17 20:40 92 Nasal Cannula 6.00 10/08/17 20:16 98.3 75 16 104/63 (77) 95 10/08/17 20:00 Nasal Cannula 6.00 10/08/17 16:00 97.3 99 18 109/60 (76) 93 10/08/17 12:00 96.6 98 18 127/68 (87) 97 10/08/17 09:38 97 Nasal Cannula 6.00 I/O 10/08/17 10/08/17 10/08/17 10/09/17 10/09/17 10/09/17 07:00 15:00 23:00 07:00 15:00 23:00 Intake Total 360 ml 120 ml Output Total 1800 ml 650 ml Balance -1440 ml -530 ml Intake Oral 360 ml 120 ml Output Urine Total 1800 ml 650 ml # Bowel Movements 1 1 Result Diagram: 10/09/17 0700 10/09/17 0700 Objective Remarks CONSTITUTIONAL/GEN: Cachectic male, pale and weak ENT: Mouth and pharynx show moist MM, upper teeth missing, many lower teeth absent, those remaining are in poor repair LUNGS: Coarse breath sounds throughout CARDIOVASCULAR: RR without murmur or gallop. GI/ABD: soft without masses, without organomegaly. NEURO: No focal deficits. SKIN: color very pale, lichenification both ankles, sacral wound unstagable, 3cm x 6cm HEME/LYMPH: no bruising, petechia or significant adenopathy PSYCH/MENTAL STATUS: Alert and oriented x 3. Other:catheter in place A/P Assessment and Plan 66 yr old M Hep C, hx of heavy smoking (2ppd for 61 yrs), and chronic aspirin use presented to the ED with anemia and black tarry stools secondary to suspected GI bleed. Patient transferred to ICU 09/30 for ESBL E.coli sepsis. Patient hemodynamically stable for transfer to med/surg 10/03. Discharge Planning Case Management to assist with SNF placement Unclear timetable. Problem List: (1) Bacteremia ICD Codes: R78.81 - Bacteremia Status: Acute Plan: Patient transfer to ICU on 09/30 for ESBL E.coli sepsis. Patient hemodynamically stable for transfer back to med/surg floor 10/03. 1 positive blood culture on 10/06-Staph coagulase negative ID consulted, appreciate recommendations * E.coli ESBL sepsis, source is likely GI, questionable SBP * Continue Ertapenem 1000 mg IV q24h (10/02) x 6-8 weeks per ID * Restarted Vancomycin (10/07 - ) History: Patient met sepsis criteria 09/29 due to tachycardic at 95-113 and hypotension 86/53 Lactic acid 1.4 09/29, Repeat lactic acid 1.5 s/p 500cc bolus of NS, MIVF 140mls/hr 09/29 Vancomycin 1,250mg IV q12h (09/29-10/01) Zosyn 4.5 gm IV q6h (started 09/30-09/22) Azithromycin 250mg PO daily (10/01-10/04) Critical Care consulted, appreciate recs. * CT abd/pelvis w/o contrast done 09/30 revealed moderate size left pleural effusion, ascites, 5cm infrarenal abdominal aortic aneurysm and mesenteric stranding. * CTA 10/01 7.3 cm AAA, contained reputure, cirrhosis, splenomegaly, cholelithiasis, moderate ascites, no evident of protal vein thrombosis or Budd- Chiari syndrome, COPD with bibasilar airspace disease and parapneumonic effusions * 2-D echo - 60-65% * Left pleural effusion- thoracentesis with removal of 750 cc of dark yellow fluid. Fluid appeared transudative. * Ascites- paracentesis with removal of 1100 cc of yellow fluids. This appeared due to portal hypertension. * Possibility of aortoenteric fistula (2) Pancytopenia ICD Codes: D61.818 - Other pancytopenia Plan: WBC down since admission, Hb stable, plts trending down since admission Hem/Onc consulted, appreciate recs * Likely has baseline pancytopenia due to cirrhosis and splenomegaly with further crop in the WBC and plt count due to recent sepsis * monitor CBC, WBC improved 10/06, Neupogen per heme/onc 10/03-10/06, 10/08 * Continue daily folate * Neupogen given again today, give as needed 2 units of RBCS transfused 09/28, 1 unit of RBCs transfused 09/29, and 1 unit of RBCs transfused 09/30 1 unit of FFP transfused 09/30 1 unit of Leuk-redu pheresis plts transfused 10/01 prior to thoracentesis (3) AAA (abdominal aortic aneurysm) ICD Codes: I71.4 - Abdominal aortic aneurysm, without rupture Plan: CT abd/pelvis w/o contrast done 09/30 5cm infrarenal abdominal aortic aneurysm Aorta CTA 7.3 cm infrarenal AAA with laminated wall, contained rupture which may be chronic and possible associated aortic wall inflammation indicating aortitis Vascular surgery consulted, appreciate recs No intervention for AAA until infection cleared Continue to follow at this time (4) GI bleed ICD Codes: K92.2 - Gastrointestinal hemorrhage, unspecified Status: Acute Plan: Hb of 6.1 upon admission,1 month hx of black tarry stools, chronic aspirin use 2 units of RBCS transfused 09/28, 1 unit of RBCs transfused 09/29, and 1 unit of RBCs transfused 09/30 Hb stable Hemoccult performed by RN in ED on 09/28- positive GI reconsulted for mesenteric stranding and ascites, appreciate recommendations * EGD/colonoscopy demonstrated hiatal hernia, gastric ulcer, erosive gastritis and colon polyp * Duo/stomach biopsy- Stomach, reactive/chemical gastropathy with intestinal metaplasia. Colon, sigmoid, adenomatous polyp * Check HCV quant, less than 15 IUs/ ml, less than 1.18 log IUs/ml * Alpha-feto protein wnl * Elevated ferritin levels due to underlying cirrhosis most likely * Continue Protonix 40mg IV q12h * AMSA, AMA negative * [id number] * Hemochromatosis workup negative * Avoid NSAIDs and anticoagulation * EGD in 2 months * Colonoscopy in 2 years (5) Diarrhea ICD Codes: R19.7 - Diarrhea, unspecified Plan: Diarrhea with fecal incontinence for several days. -Follow-up C. difficile PCR -Follow-up Hemoccult (6) Hematuria ICD Codes: R31.9 - Hematuria, unspecified Plan: -UA 09/30 moderate occult blood, unlikely traumatic, patient has condom catheter -PSA wnl 0.15 -Renal US 10/04 demonstrated small nonobstructing 3mm calyceal calculus in the mid left kidney. 1.4 cm cyst in the inferior pole of the right kidney. -Urology consulted, recs appreciated Urologic impression: gross hematuria (now resolved) of indeterminate etiology; abnormal coagulation profile and thrombocytopenia likely contributing to the hematuria * manage conservatively for now * office follow up after hospital discharge when overall medical condition improved for cystoscopic evaluation [phone] * will be available as needed during present hospitalization (7) Hepatitis C ICD Codes: B19.20 - Unspecified viral hepatitis C without hepatic coma Plan: Patient reports history of Hep C. Patient reports being treated in the 's. LFTs wnl. alpha fetoprotein wnl Check HCV quant, less than 15 IUs/ml, less than 1.18 log IUs/ml (8) Abnormal chest x-ray ICD Codes: R93.8 - Abnormal findings on diagnostic imaging of other specified body structures Plan: Heavy smoker. Mass 2.51 x 3.86 found on CXR. Small free-flowing right pleural effusion at the base. CT revealed dominant opacity seen on recent CXR represents loculated pleural effusion in the superior major fissure. Small b/l pleural effusions, mild consolidative infiltrates in the right lower lung, and right upper abdominal ascites. Calcified gallstones. (9) Hypokalemia ICD Codes: E87.6 - Hypokalemia Plan: Improving Replace orally if needed Continue to monitor (10) RALF (acute kidney injury) ICD Codes: N17.9 - Acute kidney failure, unspecified Plan: RALF secondary to dehydration BUN 28 and Cr 0.53 upon admission Improving Continue to monitor (11) Sacral wound ICD Codes: S31.000A - Unspecified open wound of lower back and pelvis without penetration into retroperitoneum, initial encounter Plan: Unstageable sacral wound, 3cm x 6cm Wound care consulted, recommendations appreciated 1) Cleanse sacral wound with normal saline,pat dry. 2) Apply skin prep to gibran wound 3) Santyl josé thick to wound bed 4) Cover with Maxorb 2 cut to fit. 5) Cover with dry dressing (boarder gauze) 6) Change dressing Daily (12) Nutrition, metabolism, and development symptoms ICD Codes: R63.8 - Other symptoms and signs concerning food and fluid intake Plan: Fluids: 100mls/hr NS due to poor appetite Diet: Regular Basic Electrolytes: monitor and replace as needed Other: Case management consulted GI ppx: Protonix 40mg IV q12h DVT ppx: SCDs Problem Qualifiers (1) GI bleed: Qualified Codes: K92.2 - Gastrointestinal hemorrhage, unspecified Edilson Shoemaker MD R1 Oct 09, 2017 09:33
[2017-10-09 11:52] LABS: CERULOPLASMIN 23 mg/dL (18-36)
[2017-10-09] MEDS: ERTAPENEM INJ 1,000 MG in SODIUM CHLORIDE 0.9% INJ 100 ML IV SCH (14:00)
[2017-10-10] VITALS (7 sets, daily range): BP systolic 115–131; BP diastolic 61–68; PULSE 87–106; RESP 18–24; TEMP 95.5–96.6; O2SAT 90–96
[2017-10-10] MEDS: PANTOPRAZOLE SODIUM 40 MG VIAL IV PUSH SCH ×2 (03:07→16:54)
[2017-10-10] MEDS: FOLIC ACID 1 MG TAB PO SCH (09:07)
[2017-10-10] MEDS: COLLAGENASE OINT 30 GM TUBE TOPICAL SCH (09:08)
[2017-10-10] MEDS: SODIUM CHLORIDE 0.9% FLUSH 10 ML FLUSH IV FLUSH SCH ×2 (09:09→22:42)
--- NOTE | 2017-10-10 09:58 | HHI.FPPN ---
Subjective Remarks Patient seen and examined this morning. Denies any complaints/concerns. No acute events overnight. Reports his bowel movements have improved. He was negative for C. difficile and Hemoccult. Positive fever/chills, nausea/vomiting , chest pain, shortness of breath, leg pain. Objective Vitals Vital Signs Date Time Temp Pulse Resp B/P (MAP) Pulse Ox O2 Delivery O2 Flow Rate FiO2 10/10/17 08:00 95.7 87 23 115/68 (84) 93 10/10/17 04:00 96.6 91 18 125/61 (82) 94 10/09/17 20:00 96.3 96 18 114/63 (80) 94 10/09/17 16:00 95.8 85 17 110/62 (78) 95 10/09/17 12:00 95.8 107 21 120/73 (89) 90 I/O 10/09/17 10/09/17 10/09/17 10/10/17 10/10/17 10/10/17 07:00 15:00 23:00 07:00 15:00 23:00 Intake Total 1100 ml 25 ml Output Total 1000 ml 800 ml Balance 1100 ml -975 ml -800 ml Intake Oral 25 ml IV Total 1100 ml Output Urine Total 1000 ml 800 ml # Bowel Movements 1 Result Diagram: 10/09/17 0700 10/09/17 0700 Objective Remarks CONSTITUTIONAL/GEN: Cachectic male, pale and weak ENT: Mouth and pharynx show moist MM, upper teeth missing, many lower teeth absent, those remaining are in poor repair LUNGS: diminished breath sounds CARDIOVASCULAR: RR without murmur or gallop. GI/ABD: soft without masses, without organomegaly. BS+ NEURO: No focal deficits. SKIN: color very pale, lichenification both ankles, sacral wound unstagable, 3cm x 6cm PSYCH/MENTAL STATUS: Alert and oriented x 3. Other:catheter in place A/P Assessment and Plan 66 yr old M Hep C, hx of heavy smoking (2ppd for 61 yrs), and chronic aspirin use presented to the ED with anemia and black tarry stools secondary to suspected GI bleed. Patient transferred to ICU 09/30 for ESBL E.coli sepsis. Patient hemodynamically stable for transfer to med/surg 10/03. Discharge Planning Case Management to assist with SNF placement Pending infection workup and hematology clearance Problem List: (1) Bacteremia ICD Codes: R78.81 - Bacteremia Status: Acute Plan: Patient transfer to ICU on 09/30 for ESBL E.coli sepsis. Patient hemodynamically stable for transfer back to med/surg floor 10/03. 1 positive blood culture on 10/06-Staph coagulase negative Blood cultures pending from today ID consulted, appreciate recommendations * E.coli ESBL sepsis, source is likely GI, questionable SBP * Continue Ertapenem 1000 mg IV q24h (10/02) x 6-8 weeks per ID * Restarted Vancomycin (10/07 - ) History: Patient met sepsis criteria 09/29 due to tachycardic at 95-113 and hypotension 86/53 Lactic acid 1.4 09/29, Repeat lactic acid 1.5 s/p 500cc bolus of NS, MIVF 140mls/hr 09/29 Vancomycin 1,250mg IV q12h (09/29-10/01) Zosyn 4.5 gm IV q6h (started 09/30-09/22) Azithromycin 250mg PO daily (10/01-10/04) Critical Care consulted, appreciate recs. * CT abd/pelvis w/o contrast done 09/30 revealed moderate size left pleural effusion, ascites, 5cm infrarenal abdominal aortic aneurysm and mesenteric stranding. * CTA 10/01 7.3 cm AAA, contained reputure, cirrhosis, splenomegaly, cholelithiasis, moderate ascites, no evident of protal vein thrombosis or Budd- Chiari syndrome, COPD with bibasilar airspace disease and parapneumonic effusions * 2-D echo - 60-65% * Left pleural effusion- thoracentesis with removal of 750 cc of dark yellow fluid. Fluid appeared transudative. * Ascites- paracentesis with removal of 1100 cc of yellow fluids. This appeared due to portal hypertension. * Possibility of aortoenteric fistula (2) Pancytopenia ICD Codes: D61.818 - Other pancytopenia Plan: WBC down since admission, Hb stable, plts trending down since admission Hem/Onc consulted, appreciate recs * Likely has baseline pancytopenia due to cirrhosis and splenomegaly with further crop in the WBC and plt count due to recent sepsis * monitor CBC, WBC improved 10/06, Neupogen per heme/onc 10/03-10/06, 10/08 * Continue daily folate * Neupogen, give as needed 2 units of RBCS transfused 09/28, 1 unit of RBCs transfused 09/29, and 1 unit of RBCs transfused 09/30 1 unit of FFP transfused 09/30 1 unit of Leuk-redu pheresis plts transfused 10/01 prior to thoracentesis (3) AAA (abdominal aortic aneurysm) ICD Codes: I71.4 - Abdominal aortic aneurysm, without rupture Plan: CT abd/pelvis w/o contrast done 09/30 5cm infrarenal abdominal aortic aneurysm Aorta CTA 7.3 cm infrarenal AAA with laminated wall, contained rupture which may be chronic and possible associated aortic wall inflammation indicating aortitis Vascular surgery consulted, appreciate recs No intervention for AAA until infection cleared Continue to follow at this time (4) GI bleed ICD Codes: K92.2 - Gastrointestinal hemorrhage, unspecified Status: Acute Plan: Hb of 6.1 upon admission,1 month hx of black tarry stools, chronic aspirin use 2 units of RBCS transfused 09/28, 1 unit of RBCs transfused 09/29, and 1 unit of RBCs transfused 09/30 Hb stable Hemoccult performed by RN in ED on 09/28- positive GI reconsulted for mesenteric stranding and ascites, appreciate recommendations * EGD/colonoscopy demonstrated hiatal hernia, gastric ulcer, erosive gastritis and colon polyp * Duo/stomach biopsy- Stomach, reactive/chemical gastropathy with intestinal metaplasia. Colon, sigmoid, adenomatous polyp * Check HCV quant, less than 15 IUs/ ml, less than 1.18 log IUs/ml * Alpha-feto protein wnl * Elevated ferritin levels due to underlying cirrhosis most likely * Continue Protonix 40mg IV q12h * AMSA, AMA negative * [id number] * Hemochromatosis workup negative * Avoid NSAIDs and anticoagulation * EGD in 2 months * Colonoscopy in 2 years (5) Diarrhea ICD Codes: R19.7 - Diarrhea, unspecified Plan: Diarrhea with fecal incontinence for several days. Improving -C diff negative & hemoccult negative (6) Hematuria ICD Codes: R31.9 - Hematuria, unspecified Plan: -UA 09/30 moderate occult blood, unlikely traumatic, patient has condom catheter -PSA wnl 0.15 -Renal US 10/04 demonstrated small nonobstructing 3mm calyceal calculus in the mid left kidney. 1.4 cm cyst in the inferior pole of the right kidney. -Urology consulted, recs appreciated Urologic impression: gross hematuria (now resolved) of indeterminate etiology; abnormal coagulation profile and thrombocytopenia likely contributing to the hematuria * manage conservatively for now * office follow up after hospital discharge when overall medical condition improved for cystoscopic evaluation [phone] * will be available as needed during present hospitalization (7) Hepatitis C ICD Codes: B19.20 - Unspecified viral hepatitis C without hepatic coma Plan: Patient reports history of Hep C. Patient reports being treated in the 's. LFTs wnl. alpha fetoprotein wnl Check HCV quant, less than 15 IUs/ml, less than 1.18 log IUs/ml (8) Abnormal chest x-ray ICD Codes: R93.8 - Abnormal findings on diagnostic imaging of other specified body structures Plan: Heavy smoker. Mass 2.51 x 3.86 found on CXR. Small free-flowing right pleural effusion at the base. CT revealed dominant opacity seen on recent CXR represents loculated pleural effusion in the superior major fissure. Small b/l pleural effusions, mild consolidative infiltrates in the right lower lung, and right upper abdominal ascites. Calcified gallstones. (9) Hypokalemia ICD Codes: E87.6 - Hypokalemia Plan: Improving Replace orally if needed Continue to monitor (10) RALF (acute kidney injury) ICD Codes: N17.9 - Acute kidney failure, unspecified Plan: RALF secondary to dehydration BUN 28 and Cr 0.53 upon admission Improving Continue to monitor (11) Sacral wound ICD Codes: S31.000A - Unspecified open wound of lower back and pelvis without penetration into retroperitoneum, initial encounter Plan: Unstageable sacral wound, 3cm x 6cm Wound care consulted, recommendations appreciated 1) Cleanse sacral wound with normal saline,pat dry. 2) Apply skin prep to gibran wound 3) Santyl josé thick to wound bed 4) Cover with Maxorb 2 cut to fit. 5) Cover with dry dressing (boarder gauze) 6) Change dressing Daily (12) Nutrition, metabolism, and development symptoms ICD Codes: R63.8 - Other symptoms and signs concerning food and fluid intake Plan: Fluids: 100mls/hr NS due to poor appetite Diet: Regular Basic Electrolytes: monitor and replace as needed Other: Case management consulted GI ppx: Protonix 40mg IV q12h DVT ppx: SCDs Problem Qualifiers (1) GI bleed: Qualified Codes: K92.2 - Gastrointestinal hemorrhage, unspecified (2) Diarrhea: Qualified Codes: R19.7 - Diarrhea, unspecified John Gotti MD, R2 Oct 10, 2017 09:58
[2017-10-10 12:14] LABS: AUTOMATED NEUTROPHIL # 3.6 TH/MM3 (1.8-7.7); BASOPHIL % 0.4 % (0.0-2.0); EOSINOPHIL % 0.5 % (0.0-4.0); HEMATOCRIT 27.9 % (39.0-51.0); HEMOGLOBIN 9.4 GM/DL (13.0-17.0); LYMPH % 22.9 % (9.0-44.0); LYMPHOCYTE # 1.2 TH/MM3 (1.0-4.8); MEAN CELL VOLUME 96.7 FL (80.0-100.0); MEAN CORPUSCULAR HEMOGLOBIN 32.6 PG (27.0-34.0); MEAN CORPUSCULAR HGB CONC 33.7 % (32.0-36.0); MONO % 4.2 % (0.0-8.0); MONOCYTE # 0.2 TH/MM3 (0-0.9); PLATELET COUNT 51 TH/MM3 (150-450); RED BLOOD COUNT 2.89 MIL/MM3 (4.50-5.90); RED CELL DISTRIBUTION WIDTH 18.8 % (11.6-17.2)
[2017-10-10 12:29] LABS: BICARBONATE 31.6 MEQ/L (21.0-32.0); CALCIUM 8.1 MG/DL (8.5-10.1); CREATININE 0.21 MG/DL (0.60-1.30)
[2017-10-10 13:11] LABS: BANDS 7 % (0-6); LYMPHOCYTES 16 % (9-44); METAMYELOCYTES 1 % (0-1); MONOCYTES 5 % (0-8); POLYS (SEG NEUTROPHILS) 71 % (16-70); TOXIC GRANULATION 2+ (NORMAL)
[2017-10-10 13:12] LABS: OVALOCYTES 1+ (NORMAL)
[2017-10-10] MEDS: ERTAPENEM INJ 1,000 MG in SODIUM CHLORIDE 0.9% INJ 100 ML IV SCH (16:54)
[2017-10-10] MEDS: SODIUM CHLOR 0.9% 1000 ML INJ 1,000 ML IV SCH (16:55)
[2017-10-11] VITALS: BP 114/65; PULSE 93; RESP 20; TEMP 97; O2SAT 98
[2017-10-11] MEDS: PANTOPRAZOLE SODIUM 40 MG VIAL IV PUSH SCH ×2 (03:12→14:30)
[2017-10-11] MEDS: SODIUM CHLOR 0.9% 1000 ML INJ 1,000 ML IV SCH ×3 (03:13→13:41)
[2017-10-11 08:00] VITALS: BP 127/62; PULSE 90; RESP 17; TEMP 95.1; O2SAT 98
[2017-10-11] MEDS: SODIUM CHLORIDE 0.9% FLUSH 10 ML FLUSH IV FLUSH SCH ×2 (09:44→20:30)
[2017-10-11] MEDS: FOLIC ACID 1 MG TAB PO SCH (09:44)
--- NOTE | 2017-10-11 11:23 | PD.ONC.PN ---
Subjective Subjective Remarks Afebrile overnight. Patient resting in bed. Tired of being in the hospital. States his breathing is about the same. Wishes he was stronger and could go home. Objective Data Date Time Temp Pulse Resp B/P (MAP) Pulse Ox O2 Delivery O2 Flow Rate FiO2 10/11/17 08:00 95.1 90 17 127/62 (83) 98 10/11/17 00:00 97.0 93 20 114/65 (81) 98 10/10/17 23:36 106 10/10/17 22:10 Nasal Cannula 5.00 10/10/17 20:14 87 10/10/17 20:00 96.4 92 20 131/66 (87) 96 10/10/17 16:00 95.5 90 23 128/63 (84) 92 10/10/17 12:00 95.6 102 24 119/66 (83) 90 10/11/17 10/11/17 10/11/17 07:00 15:00 23:00 Intake Total 1000 ml Output Total 475 ml Balance 525 ml Result Diagram: 10/10/17 1139 10/10/17 1139 Laboratory Results Laboratory Tests Test 10/10/17 11:39 White Blood Count 5.0 TH/MM3 Red Blood Count 2.89 MIL/MM3 Hemoglobin 9.4 GM/DL Hematocrit 27.9 % Mean Corpuscular Volume 96.7 FL Mean Corpuscular Hemoglobin 32.6 PG Mean Corpuscular Hemoglobin Concent 33.7 % Red Cell Distribution Width 18.8 % Platelet Count 51 TH/MM3 Mean Platelet Volume 8.0 FL Neutrophils (%) (Auto) 72.0 % Lymphocytes (%) (Auto) 22.9 % Monocytes (%) (Auto) 4.2 % Eosinophils (%) (Auto) 0.5 % Basophils (%) (Auto) 0.4 % Neutrophils # (Auto) 3.6 TH/MM3 Lymphocytes # (Auto) 1.2 TH/MM3 Monocytes # (Auto) 0.2 TH/MM3 Eosinophils # (Auto) 0.0 TH/MM3 Basophils # (Auto) 0.0 TH/MM3 CBC Comment AUTO DIFF Differential Total Cells Counted 100 Neutrophils % (Manual) 71 % Band Neutrophils % 7 % Lymphocytes % 16 % Monocytes % 5 % Neutrophils # (Manual) 4.0 TH/MM3 Metamyelocytes 1 % Differential Comment FINAL DIFF MANUAL Toxic Granulation 2+ Platelet Estimate LOW Platelet Morphology Comment NORMAL Ovalocytes 1+ Blood Urea Nitrogen 9 MG/DL Creatinine 0.21 MG/DL Random Glucose 87 MG/DL Calcium Level 8.1 MG/DL Sodium Level 145 MEQ/L Potassium Level 2.9 MEQ/L Chloride Level 107 MEQ/L Carbon Dioxide Level 31.6 MEQ/L Anion Gap 6 MEQ/L Estimat Glomerular Filtration Rate 453 ML/MIN Culture Results Microbiology Date/Time Source Procedure Growth Status 10/10/17 12:55 Blood Peripheral Aerobic Blood Culture - Preliminary NO GROWTH IN 1 DAY Resulted 10/10/17 12:55 Blood Peripheral Anaerobic Blood Culture - Preliminary NO GROWTH IN 1 DAY Resulted 10/10/17 12:50 Blood Peripheral Aerobic Blood Culture - Preliminary NO GROWTH IN 1 DAY Resulted 10/10/17 12:50 Blood Peripheral Anaerobic Blood Culture - Preliminary NO GROWTH IN 1 DAY Resulted 10/09/17 14:00 Stool Stool Stool Occult Blood (CALE) - Final HEMOCCULT NEGATIVE Complete Administered Medications Medications (Trade) Dose Ordered Sig/Jailene Route PRN Reason Start Time Stop Time Status Last Admin Dose Admin Sodium Chloride (NS Flush) 2 ml BID IV FLUSH 09/28/17 13:45 10/11/17 09:44 Pantoprazole Sodium (Protonix Inj) 40 mg Q12H IV PUSH 09/28/17 14:00 10/11/17 03:12 Collagenase (Santyl Oint) 1 applic DAILY TOPICAL 09/29/17 12:45 10/10/17 09:08 Diphenhydramine HCl (Benadryl) 25 mg Q4H PRN PO SEE LABEL COMMENTS 10/01/17 09:30 10/01/17 09:30 Diphenhydramine HCl (Benadryl 2% Cream) 1 applic TID PRN TOPICAL ITCHING 10/02/17 10:00 10/02/17 10:23 Folic Acid (Folate) 1 mg DAILY PO 10/02/17 11:00 10/11/17 09:44 Sodium Chloride 1,000 ml @ 100 mls/hr Q10H IV 10/04/17 13:45 10/11/17 03:13 Ertapenem 1000 mg/ Sodium Chloride 100 ml @ 200 mls/hr Q24H IV 10/06/17 14:00 10/10/17 16:54 Objective Remarks GENERAL: chronically ill male lying supine in bed in nad. SKIN: Warm and dry. HEAD: Normocephalic. EYES: No injection or drainage. NECK: Supple, trachea midline. CARDIOVASCULAR: +S1/S2 RESPIRATORY: anterior post with scattered rhonchi GASTROINTESTINAL: Abdomen soft, non-tender, nondistended. EXTREMITIES: No cyanosis NEUROLOGICAL: awake and alert, normal speech. Assessment/Plan Problem List: (1) Pancytopenia ICD Codes: D61.818 - Other pancytopenia Assessment 66y/o male with pancytopenia and failure to thrive. --history of hepatitis C diagnosed in the ; he tells me he was treated for the hepatitis C and this was "cleared". Repeat hepatitis C titers this hospitalization indicate low circulating hepatitis C vital titers. --CT angiogram showed cirrhotic-appearing liver with splenomegaly and moderate ascites. --likely has baseline pancytopenia due to cirrhosis and splenomegaly with further drop in the white blood cell and platelet count due to recent sepsis. Plan 1. pancytopenia: WBC improved yesterday. awaiting CBC today. monitor and transfuse/provide Neupogen as needed Attending Statement The exam, history, and the medical decision-making described in the above note were completed with the assistance of the mid-level provider. I reviewed and agree with the findings presented. I attest that I had a [id number] encounter with the patient on the same day, and personally performed and documented my assessment and findings in the medical record. hemoglobin, platelets, and wbc are increased. Exam consistent with ascites. radiographic studies show cirrhosis. cytopenias most consistent with cirrhosis with portal hypertension and at this point will not further investigate. If there was significant worsening one could consider a bone marrow aspirate and bx but currently not indicated Maria Elena Gómez Oct 11, 2017 11:23 Nathaniel Robledo MD Oct 11, 2017 12:36
[2017-10-11 11:47] VITALS: O2SAT 98
[2017-10-11 12:00] VITALS: BP 111/64; PULSE 92; RESP 17; TEMP 95.3; O2SAT 97
--- NOTE | 2017-10-11 13:49 | HHI.IDPN ---
Subjective Subjective Remarks afebrile blood clx are negative trend to hypothermia WBC wnl with neupogen Antibiotics Ertapenem Allergies: Coded Allergies: No Known Allergies (Unverified , 09/28/17) Objective . Vital Signs Date Time Temp Pulse Resp B/P (MAP) Pulse Ox O2 Delivery O2 Flow Rate FiO2 10/11/17 12:00 95.3 92 17 111/64 (80) 97 10/11/17 11:47 98 Nasal Cannula 5.00 10/11/17 08:00 95.1 90 17 127/62 (83) 98 10/11/17 00:00 97.0 93 20 114/65 (81) 98 10/10/17 23:36 106 10/10/17 22:10 Nasal Cannula 5.00 10/10/17 20:14 87 10/10/17 20:00 96.4 92 20 131/66 (87) 96 10/10/17 16:00 95.5 90 23 128/63 (84) 92 . Laboratory Tests Test 10/10/17 11:39 White Blood Count 5.0 TH/MM3 Red Blood Count 2.89 MIL/MM3 Hemoglobin 9.4 GM/DL Hematocrit 27.9 % Mean Corpuscular Volume 96.7 FL Mean Corpuscular Hemoglobin 32.6 PG Mean Corpuscular Hemoglobin Concent 33.7 % Red Cell Distribution Width 18.8 % Platelet Count 51 TH/MM3 Mean Platelet Volume 8.0 FL Neutrophils (%) (Auto) 72.0 % Lymphocytes (%) (Auto) 22.9 % Monocytes (%) (Auto) 4.2 % Eosinophils (%) (Auto) 0.5 % Basophils (%) (Auto) 0.4 % Neutrophils # (Auto) 3.6 TH/MM3 Lymphocytes # (Auto) 1.2 TH/MM3 Monocytes # (Auto) 0.2 TH/MM3 Eosinophils # (Auto) 0.0 TH/MM3 Basophils # (Auto) 0.0 TH/MM3 CBC Comment AUTO DIFF Differential Total Cells Counted 100 Neutrophils % (Manual) 71 % Band Neutrophils % 7 % Lymphocytes % 16 % Monocytes % 5 % Neutrophils # (Manual) 4.0 TH/MM3 Metamyelocytes 1 % Differential Comment FINAL DIFF MANUAL Toxic Granulation 2+ Platelet Estimate LOW Platelet Morphology Comment NORMAL Ovalocytes 1+ Laboratory Tests Test 10/10/17 11:39 Blood Urea Nitrogen 9 MG/DL Creatinine 0.21 MG/DL Random Glucose 87 MG/DL Calcium Level 8.1 MG/DL Sodium Level 145 MEQ/L Potassium Level 2.9 MEQ/L Chloride Level 107 MEQ/L Carbon Dioxide Level 31.6 MEQ/L Anion Gap 6 MEQ/L Estimat Glomerular Filtration Rate 453 ML/MIN Microbiology Date/Time Source Procedure Growth Status 10/10/17 12:55 Blood Peripheral Aerobic Blood Culture - Preliminary NO GROWTH IN 1 DAY Resulted 10/10/17 12:55 Blood Peripheral Anaerobic Blood Culture - Preliminary NO GROWTH IN 1 DAY Resulted 10/10/17 12:50 Blood Peripheral Aerobic Blood Culture - Preliminary NO GROWTH IN 1 DAY Resulted 10/10/17 12:50 Blood Peripheral Anaerobic Blood Culture - Preliminary NO GROWTH IN 1 DAY Resulted 10/09/17 14:00 Stool Stool Stool Occult Blood (CALE) - Final HEMOCCULT NEGATIVE Complete Imaging Last Impressions Renal Ultrasound 10/04/17 0000 Signed Impressions: Service Date/Time: Wednesday, October 04, 2017 10:29 - CONCLUSION: 1. Small nonobstructing 3 mm calyceal calculus in the mid left kidney. 2. 1.4 cm cyst in the inferior pole of the right kidney. 3. Small amount of ascites. Rohan Leigh MD Aorta CTA 10/01/17 1556 Signed Impressions: Service Date/Time: Sunday, October 01, 2017 17:11 - CONCLUSION: 1. 7.3 cm infrarenal abdominal aortic aneurysm with laminated wall as described above. Findings suggest a contained rupture which may be chronic and possible associated aortic wall inflammation indicating aortitis. 2. Chronic liver disease characteristic of cirrhosis. 3. Splenomegaly 4. Cholelithiasis 5. Moderate ascites 6. No evidence of portal vein thrombosis or Budd-Chiari syndrome. 7. COPD with bibasilar airspace disease and parapneumonic effusions. 1. Herve Berumen MD Thoracentesis Ultrasound 10/01/17 0000 Signed Impressions: Service Date/Time: Sunday, October 01, 2017 11:27 - CONCLUSION: Uncomplicated ultrasound guided thoracentesis. Marc Alfredo MD Cyst Biopsy Asp-Paracentesis US 10/01/17 0000 Signed Impressions: Service Date/Time: Sunday, October 01, 2017 09:53 - CONCLUSION: Uncomplicated ultrasound guided paracentesis. Marc Alfredo MD Chest X-Ray 10/01/17 0000 Signed Impressions: Service Date/Time: Sunday, October 01, 2017 13:22 - CONCLUSION: 1. No significant pneumothorax with near resolution of left-sided pleural effusion following thoracentesis. Rohan Leigh MD Abdomen/Pelvis CT 09/30/17 0000 Signed Impressions: Service Date/Time: Sunday, October 01, 2017 02:21 - CONCLUSION: 1. 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 2. Moderate pleural effusions and moderate amount of abdominal pelvic ascites. 3. 2 calcified gallstones. David Blunt MD Chest CT 09/28/17 0000 Signed Impressions: Service Date/Time: Friday, September 29, 2017 01:23 - CONCLUSION: 1. The dominant opacity seen on recent chest x-ray represents loculated pleural effusion in the superior major fissure. 2. Small bilateral pleural effusions, mild consolidative infiltrates in the right lower lung, and right upper abdominal ascites. 3. Calcified gallstones. David Blunt MD Physical Exam CONSTITUTIONAL/GENERAL: This is a thin desheveled patient, in no apparent distress. TUBES/LINES/DRAINS: SKIN: No jaundice, rashes, or lesions. EYES: Pupils equal and round and reactive. Extraocular motions intact. No scleral icterus. No injection or drainage. Fundi not examined. ENT: Hearing grossly normal. Nose without bleeding or purulent drainage. Throat without visible erythema, exudates, masses, or lesions. Oral mucosae moist, poor dentition CARDIOVASCULAR: Regular rate and rhythm without murmurs, gallops, or rubs. No JVD. Peripheral pulses symmetric. Well perfused perifery RESPIRATORY/CHEST: Symmetric, unlabored respirations. Clear to auscultation. Breath sounds equal bilaterally. No wheezes, rales, or rhonchi. GASTROINTESTINAL: Abdomen soft, non-tender, nondistended at all. No hepato- splenomegaly, or palpable masses. No guarding. Bowel sounds present. GENITOURINARY: Without palpable bladder distension. Maynard in place with slightly bloody urine MUSCULOSKELETAL: Extremities without clubbing, cyanosis, or edema. No joint tenderness or effusion noted. No calf tenderness. No mottling or clubbing. NEUROLOGICAL: Awake and alert. Motor and sensory grossly within normal limits. Follows commands. clear speech. Moves all extremities. 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 SBP per ANC criteria (260), clx P, negative - final AAA, ? fistula Vascular surgeon consulted Symptomatic anemia from GI bleed Hypotension - resolved with IVF LIver cirrhosis with splenomegaly pancytopenia 2/2 splenomegaly: resolved with neupogen tx Hypothermia Hematuria - urologist ff: reconmmended o/p cystosciopy New issue: GPC bactreremia, low grade, doubt clin significance - no central lines cont ertapenem x 6-8 weeks dc vancomycin fu blood clx dw oncology team Marleni Giraldo MD Oct 11, 2017 13:49
[2017-10-11] MEDS: ERTAPENEM INJ 1,000 MG in SODIUM CHLORIDE 0.9% INJ 100 ML IV SCH (14:30)
[2017-10-11] MEDS: COLLAGENASE OINT 30 GM TUBE TOPICAL SCH (14:31)
--- NOTE | 2017-10-11 14:47 | HHI.FPPN ---
Subjective Remarks Mr. Friedman was afebrile with mild tachycardia overnight (to 100's); otherwise normal VS on 5L O2 via NC. Per EMR review, patient with 875 ml urine output overnight. Mr. Friedman reports that he is doing well at this time without concerns. No reported pain or respiratory concerns. Objective Vitals Vital Signs Date Time Temp Pulse Resp B/P (MAP) Pulse Ox O2 Delivery O2 Flow Rate FiO2 10/11/17 12:00 95.3 92 17 111/64 (80) 97 10/11/17 11:47 98 Nasal Cannula 5.00 10/11/17 08:00 95.1 90 17 127/62 (83) 98 10/11/17 00:00 97.0 93 20 114/65 (81) 98 10/10/17 23:36 106 10/10/17 22:10 Nasal Cannula 5.00 10/10/17 20:14 87 10/10/17 20:00 96.4 92 20 131/66 (87) 96 10/10/17 16:00 95.5 90 23 128/63 (84) 92 I/O 10/10/17 10/10/17 10/10/17 10/11/17 10/11/17 10/11/17 07:00 15:00 23:00 07:00 15:00 23:00 Intake Total 200 ml 1000 ml 990 ml Output Total 800 ml 400 ml 475 ml Balance -800 ml -200 ml 525 ml 990 ml Intake Oral 200 ml IV Total 1000 ml 990 ml Output Urine Total 800 ml 400 ml 475 ml # Bowel Movements 0 Result Diagram: 10/10/17 1139 10/10/17 1139 Imaging Last Impressions Renal Ultrasound 10/04/17 0000 Signed Impressions: Service Date/Time: Wednesday, October 04, 2017 10:29 - CONCLUSION: 1. Small nonobstructing 3 mm calyceal calculus in the mid left kidney. 2. 1.4 cm cyst in the inferior pole of the right kidney. 3. Small amount of ascites. Rohan Leigh MD Aorta CTA 10/01/17 1556 Signed Impressions: Service Date/Time: Sunday, October 01, 2017 17:11 - CONCLUSION: 1. 7.3 cm infrarenal abdominal aortic aneurysm with laminated wall as described above. Findings suggest a contained rupture which may be chronic and possible associated aortic wall inflammation indicating aortitis. 2. Chronic liver disease characteristic of cirrhosis. 3. Splenomegaly 4. Cholelithiasis 5. Moderate ascites 6. No evidence of portal vein thrombosis or Budd-Chiari syndrome. 7. COPD with bibasilar airspace disease and parapneumonic effusions. 1. Herve Berumen MD Thoracentesis Ultrasound 10/01/17 0000 Signed Impressions: Service Date/Time: Sunday, October 01, 2017 11:27 - CONCLUSION: Uncomplicated ultrasound guided thoracentesis. Marc Alfredo MD Cyst Biopsy Asp-Paracentesis US 10/01/17 0000 Signed Impressions: Service Date/Time: Sunday, October 01, 2017 09:53 - CONCLUSION: Uncomplicated ultrasound guided paracentesis. Marc Alfredo MD Chest X-Ray 10/01/17 0000 Signed Impressions: Service Date/Time: Sunday, October 01, 2017 13:22 - CONCLUSION: 1. No significant pneumothorax with near resolution of left-sided pleural effusion following thoracentesis. Rohan Leigh MD Abdomen/Pelvis CT 09/30/17 0000 Signed Impressions: Service Date/Time: Sunday, October 01, 2017 02:21 - CONCLUSION: 1. 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 2. Moderate pleural effusions and moderate amount of abdominal pelvic ascites. 3. 2 calcified gallstones. David Blunt MD Chest CT 09/28/17 0000 Signed Impressions: Service Date/Time: Friday, September 29, 2017 01:23 - CONCLUSION: 1. The dominant opacity seen on recent chest x-ray represents loculated pleural effusion in the superior major fissure. 2. Small bilateral pleural effusions, mild consolidative infiltrates in the right lower lung, and right upper abdominal ascites. 3. Calcified gallstones. David Blunt MD Objective Remarks CONSTITUTIONAL/GEN: Cachectic male, pale and weak ENT: Mouth and pharynx show moist MM, upper teeth missing, many lower teeth absent, those remaining are in poor repair LUNGS: diminished breath sounds; normal rate. Patient on O2 via NC CARDIOVASCULAR: RR without murmurs. No LE edema GI/ABD: soft without masses, without organomegaly. BS+ NEURO: Grossly normal cranial nerves. Peripheral motor function not assessed SKIN: pale, lichenification both ankles, sacral wound not visualized today PSYCH/MENTAL STATUS: Alert and oriented x 3. : catheter in place A/P Assessment and Plan 66 yr old M Hep C, hx of heavy smoking (2ppd for 61 yrs), and chronic aspirin use presented to the ED with anemia and black tarry stools secondary to suspected GI bleed. Patient transferred to ICU 09/30 for ESBL E.coli sepsis. Patient hemodynamically stable for transfer to med/surg 10/03. Discharge Planning Case Management to assist with SNF placement Pending infection workup and hematology clearance Problem List: (1) Bacteremia ICD Codes: R78.81 - Bacteremia Status: Acute Plan: ID consulted, appreciate recommendations * E.coli ESBL sepsis, source is likely GI, questionable SBP * Continue Ertapenem 1000 mg IV q24h (10/02) x 6-8 weeks per ID History: Transferred to med/surg floor 10/03; previously transferred to ICU secondary to ESBL sepsis. Patient met sepsis criteria 09/29 due to tachycardic at 95-113 and hypotension 86/53 Lactic acid 1.4 09/29, Repeat lactic acid 1.5 s/p 500cc bolus of NS, MIVF 140mls/hr 09/29 Critical Care consulted, appreciate recs. * CT abd/pelvis w/o contrast done 09/30 revealed moderate size left pleural effusion, ascites, 5cm infrarenal abdominal aortic aneurysm and mesenteric stranding. * CTA 10/01 7.3 cm AAA, contained rupture, cirrhosis, splenomegaly, cholelithiasis, moderate ascites, no evident of protal vein thrombosis or Budd- Chiari syndrome, COPD with bibasilar airspace disease and parapneumonic effusions * 2-D echo - 60-65% * Left pleural effusion- thoracentesis with removal of 750 cc of dark yellow fluid. Fluid appeared transudative. * Ascites- paracentesis with removal of 1100 cc of yellow fluids. This appeared due to portal hypertension. * Possibility of aortoenteric fistula Cultures: Blood- Cultures 10/10 negative x1 day Staph hominis 10/06 (pansensitive) ESBL E Coli 09/29 (resistant, to Ampicillin, Unasyn, Cefazolin, Cefepime, Cefuroxime, Levofloxacin) Antibiotic history: Vancomycin (restarted 10/07-10/11) Vancomycin 1,250mg IV q12h (09/29-10/01) Zosyn 4.5 gm IV q6h (started 09/30-09/22) Azithromycin 250mg PO daily (10/01-10/04) (2) Pancytopenia ICD Codes: D61.818 - Other pancytopenia Plan: Hem/Onc consulted, appreciate recs -Neupogen as needed -Monitor CBC and transfuse as needed -Continue daily folate Impression: Pancytopenia; failure to thrive. Per Hem Onc, treated in / cleared but titers elevated during hospitalization. WBC down since admission, Hb stable, plts trending down since admission A/P CT and CTA - pelvic ascites, 7.3cm infrarenal AAA, calcified gallstones, moderate pleural effusions, cirrhosis, CTA S/P thoracentesis, paracentesis Transfusion history: 2 units of RBCS transfused 09/28, 1 unit of RBCs transfused 09/29, and 1 unit of RBCs transfused 09/30 1 unit of FFP transfused 09/30 1 unit of Leuk-redu pheresis plts transfused 10/01 prior to thoracentesis (3) AAA (abdominal aortic aneurysm) ICD Codes: I71.4 - Abdominal aortic aneurysm, without rupture Plan: CT abd/pelvis w/o contrast done 09/30 5cm infrarenal abdominal aortic aneurysm Aorta CTA 7.3 cm infrarenal AAA with laminated wall, contained rupture which may be chronic and possible associated aortic wall inflammation indicating aortitis Vascular surgery consulted, appreciate recs No intervention for AAA until infection cleared Continue to follow at this time (4) GI bleed ICD Codes: K92.2 - Gastrointestinal hemorrhage, unspecified Status: Acute Plan: GI reconsulted for mesenteric stranding and ascites, appreciate recommendations -Protonix 40mg IV BID -Supportive care -Sign off; consult as needed Avoid NSAIDs and anticoagulation EGD in 2 months Colonoscopy in 2 years History: Hb of 6.1 upon admission,1 month hx of black tarry stools, chronic aspirin use 2 units of RBCS transfused 09/28, 1 unit of RBCs transfused 09/29, and 1 unit of RBCs transfused 09/30 Hb stable Hemoccult performed by RN in ED on 09/28- positive EGD/colonoscopy demonstrated hiatal hernia, gastric ulcer, erosive gastritis and colon polyp Duo/stomach biopsy- Stomach, reactive/chemical gastropathy with intestinal metaplasia. Colon, sigmoid, adenomatous polyp HCV quant, less than 15 IUs/ ml, less than 1.18 log IUs/mlAlpha-feto protein wnl Elevated ferritin levels due to underlying cirrhosis most likely AMSA, AMA negative A1AT 148 Hemochromatosis workup negative (5) Diarrhea ICD Codes: R19.7 - Diarrhea, unspecified Plan: Diarrhea with fecal incontinence for multiple days -C diff negative & hemoccult negative (6) Hematuria ICD Codes: R31.9 - Hematuria, unspecified Plan: -UA 09/30 moderate occult blood, unlikely traumatic, patient has condom catheter -PSA wnl 0.15 -Renal US 10/04 demonstrated small nonobstructing 3mm calyceal calculus in the mid left kidney. 1.4 cm cyst in the inferior pole of the right kidney. -Urology consulted, recs appreciated Urologic impression: gross hematuria (now resolved) of indeterminate etiology; abnormal coagulation profile and thrombocytopenia likely contributing to the hematuria * manage conservatively for now * office follow up after hospital discharge when overall medical condition improved for cystoscopic evaluation [phone] * will be available as needed during present hospitalization (7) Hepatitis C ICD Codes: B19.20 - Unspecified viral hepatitis C without hepatic coma Plan: Patient reports history of Hep C. Patient reports being treated in the s. LFTs wnl. alpha fetoprotein wnl HCV quant, less than 15 IUs/ml, less than 1.18 log IUs/ml (8) Abnormal chest x-ray ICD Codes: R93.8 - Abnormal findings on diagnostic imaging of other specified body structures Plan: Impression: Heavy smoker. Mass 2.51 x 3.86 found on CXR. Small free- flowing right pleural effusion at the base. CT revealed dominant opacity seen on recent CXR represents loculated pleural effusion in the superior major fissure. Small b/l pleural effusions, mild consolidative infiltrates in the right lower lung, and right upper abdominal ascites. Calcified gallstones. S/p thoracentesis 10/01/2017- pleural fluid negative for malignancy (9) Hypokalemia ICD Codes: E87.6 - Hypokalemia Plan: Impression: K 2.9 10/10 -Will repeat BMP -Will recheck Mg Replace orally if needed Continue to monitor (10) RALF (acute kidney injury) ICD Codes: N17.9 - Acute kidney failure, unspecified Status: Resolved Plan: -Improving -Continue to monitor Impression: RALF secondary to dehydration BUN 28 and Cr 0.53 upon admission (11) Sacral wound ICD Codes: S31.000A - Unspecified open wound of lower back and pelvis without penetration into retroperitoneum, initial encounter Plan: Unstageable sacral wound, 3cm x 6cm Wound care consulted, recommendations appreciated 1) Cleanse sacral wound with normal saline,pat dry. 2) Apply skin prep to gibran wound 3) Santyl josé thick to wound bed 4) Cover with Maxorb 2 cut to fit. 5) Cover with dry dressing (boarder gauze) 6) Change dressing Daily (12) Nutrition, metabolism, and development symptoms ICD Codes: R63.8 - Other symptoms and signs concerning food and fluid intake Plan: Fluids: 100mls/hr NS due to poor appetite Diet: Regular Basic Electrolytes: monitor and replace as needed Other: Case management consulted GI ppx: Protonix 40mg IV q12h DVT ppx: SCDs Problem Qualifiers (1) GI bleed: Qualified Codes: K92.2 - Gastrointestinal hemorrhage, unspecified (2) Diarrhea: Qualified Codes: R19.7 - Diarrhea, unspecified Keyon Jones MD, R3 Oct 11, 2017 14:47
--- NOTE | 2017-10-11 15:19 | HHI.FF ---
Infusion Therapy Location of Infusion Therapy: [facility] Infusion Therapy Order Patient Information Patient Weight 62.8 kg Diagnosis: Coded Allergies: No Known Allergies (Unverified , 09/28/17) Administer Medication Ertapenem 1 gram IV q 24 hours Start Treatment: Oct 11, 2017 Stop Treatment: Nov 25, 2017 Additional Information Venous access: PICC Line Additional Instructions [x] Peripheral flush and dressing changes per protocol [x] Implanted port and central edger liner: * Implanted port: 10 ml Normal Saline followed by 5 ml Heparin 100 units/ml Heparin flush after each use and monthly to maintain. [] May leave port accessed during therapy. [] May leave peripheral site accessed for duration of therapy. [x] If patient has SOB or respiratory distress, check oxygen saturation. If less than 90% or clinical signs of respiratory distress, administer oxygen at 2 L/min. via nasal cannula and notify physician. [x] Anaphylaxis/Reaction orders: * Stop infusion. * Keep IV line open with saline flush. * Notify physician. * Monitor vital signs every 15 minutes until symptoms resolve. * Check Oxygen saturation; Oxygen at 2 L/min. via nasal cannula if less than 90% or clinical signs of respiratory distress. * Administer diphenhydramine (Benadryl) 25 mg IV STAT, (unless patient has received as pre-med). May repeat once, if necessary. * Solu-Cortef 250 mg IVP over 30-60 seconds, use 100 mg vials for each dissolution. * Epinephrine (1mg/1 ml) 0.3 mg subcutaneously or IVP now with any signs of respiratory distress. * Check with physician for new additional pre-med orders if patient is re- challenged or re-treated. [x] May remove PICC line when treatment complete, after confirming with Physician. [x] If the patient is admitted to the hospital, the ED, or transferred via [facility] , complete transfer form including medication reconciliation order sheet. Laboratory Tests Weekly Labs: CBC w/diff, Creatinine, LFT's (Hepatic function test) Marleni Giraldo MD Oct 11, 2017 15:19
[2017-10-11 15:26] LABS: AUTOMATED NEUTROPHIL # 1.5 TH/MM3 (1.8-7.7); BASOPHIL % 0.5 % (0.0-2.0); EOSINOPHIL % 0.8 % (0.0-4.0); HEMATOCRIT 23.9 % (39.0-51.0); LYMPHOCYTE # 0.9 TH/MM3 (1.0-4.8); MEAN CORPUSCULAR HEMOGLOBIN 31.9 PG (27.0-34.0); MEAN CORPUSCULAR HGB CONC 33.3 % (32.0-36.0); MEAN PLATELET VOLUME 7.7 FL (7.0-11.0); MONO % 9.6 % (0.0-8.0); MONOCYTE # 0.3 TH/MM3 (0-0.9); NEUT % 54.1 % (16.0-70.0); PLATELET COUNT 49 TH/MM3 (150-450); RED BLOOD COUNT 2.49 MIL/MM3 (4.50-5.90); WHITE BLOOD COUNT 2.7 TH/MM3 (4.0-11.0)
[2017-10-11 15:54] LABS: BICARBONATE 35.9 MEQ/L (21.0-32.0); CALCIUM 8.1 MG/DL (8.5-10.1); CREATININE 0.2 MG/DL (0.60-1.30)
[2017-10-11 16:00] VITALS: BP 114/64; PULSE 97; RESP 19; TEMP 95.3; O2SAT 97
[2017-10-11 16:15] LABS: MAGNESIUM 1.7 MG/DL (1.5-2.5)
[2017-10-11 16:16] LABS: CORRECTED NUCLEATED RBC 1 /100 WBC (0-0); LYMPHOCYTES 19 % (9-44); MONOCYTES 3 % (0-8); NEUTROPHIL # MANUAL DIFF 2.1 TH/MM3 (1.8-7.7); NUCLEATED RED BLOOD CELL 1 (0-0); POLYS (SEG NEUTROPHILS) 77 % (16-70)
[2017-10-11 16:17] LABS: OVALOCYTES 1+ (NORMAL); STOMATOCYTES 1+ (NORMAL); TARGET CELLS 1+ (NORMAL)
[2017-10-11] MEDS ORDERED: POTASSIUM CHLORIDE 10 MEQ CONTROLLED RELEASE TAB PO ONE (17:00)
[2017-10-11 19:52] LABS: MITOCHONDRIAL ABS LESS THAN 20.0 U (<=20.0)
[2017-10-11 20:00] VITALS: BP 108/66; PULSE 90; PULSE 95; RESP 16; TEMP 96.7; O2SAT 94
[2017-10-12] VITALS (7 sets, daily range): BP systolic 115–140; BP diastolic 53–71; PULSE 85–101; RESP 16–20; TEMP 95.9–97.3; O2SAT 92–100
[2017-10-12] MEDS: SODIUM CHLOR 0.9% 1000 ML INJ 1,000 ML IV SCH ×2 (02:07→11:45)
[2017-10-12] MEDS: PANTOPRAZOLE SODIUM 40 MG VIAL IV PUSH SCH ×2 (02:07→15:09)
[2017-10-12 08:09] LABS: AUTOMATED NEUTROPHIL # 0.9 TH/MM3 (1.8-7.7); BASOPHIL % 0.6 % (0.0-2.0); EOSINOPHIL % 0.8 % (0.0-4.0); HEMATOCRIT 24.5 % (39.0-51.0); HEMOGLOBIN 8.2 GM/DL (13.0-17.0); LYMPH % 40.4 % (9.0-44.0); LYMPHOCYTE # 0.8 TH/MM3 (1.0-4.8); MEAN CELL VOLUME 96.1 FL (80.0-100.0); MEAN CORPUSCULAR HEMOGLOBIN 32.2 PG (27.0-34.0); MEAN CORPUSCULAR HGB CONC 33.5 % (32.0-36.0); MEAN PLATELET VOLUME 8.3 FL (7.0-11.0); MONO % 12.3 % (0.0-8.0); MONOCYTE # 0.2 TH/MM3 (0-0.9); NEUT % 45.9 % (16.0-70.0); PLATELET COUNT 44 TH/MM3 (150-450); RED BLOOD COUNT 2.55 MIL/MM3 (4.50-5.90)
[2017-10-12 08:26] LABS: BICARBONATE 33.2 MEQ/L (21.0-32.0); CALCIUM 7.8 MG/DL (8.5-10.1); CREATININE 0.17 MG/DL (0.60-1.30)
[2017-10-12] MEDS: COLLAGENASE OINT 30 GM TUBE TOPICAL SCH (08:50)
[2017-10-12] MEDS: SODIUM CHLORIDE 0.9% FLUSH 10 ML FLUSH IV FLUSH SCH ×2 (08:50→21:08)
[2017-10-12] MEDS: FOLIC ACID 1 MG TAB PO SCH (08:50)
--- NOTE | 2017-10-12 09:24 | HHI.FPPN ---
Subjective Remarks Patient seen and examined this morning. No acute events overnight. Vital signs stable overnight. Patient without complaints or concerns this morning. Reports his bowel movements have improved, no diarrhea today. Denies any fever/chills, nausea/vomiting, his pain, shortness of breath, leg pain. Eating and drinking well. Objective Vitals Vital Signs Date Time Temp Pulse Resp B/P (MAP) Pulse Ox O2 Delivery O2 Flow Rate FiO2 10/12/17 08:00 97.3 92 16 116/57 (76) 95 10/12/17 00:15 96.8 90 18 121/61 (81) 96 10/11/17 20:32 Nasal Cannula 5.00 10/11/17 20:00 96.7 95 16 108/66 (80) 94 10/11/17 20:00 90 10/11/17 16:00 95.3 97 19 114/64 (81) 97 10/11/17 12:00 95.3 92 17 111/64 (80) 97 10/11/17 11:47 98 Nasal Cannula 5.00 10/11/17 09:35 Nasal Cannula 5.00 I/O 10/11/17 10/11/17 10/11/17 10/12/17 10/12/17 10/12/17 07:00 15:00 23:00 07:00 15:00 23:00 Intake Total 1000 ml 990 ml 240 ml 1570 ml Output Total 475 ml 500 ml 600 ml Balance 525 ml 990 ml -260 ml 970 ml Intake Oral 240 ml 580 ml IV Total 1000 ml 990 ml 990 ml Output Urine Total 475 ml 500 ml 600 ml # Bowel Movements 0 0 Result Diagram: 10/12/1745 10/12/17 0645 Objective Remarks CONSTITUTIONAL/GEN: Cachectic male, pale and weak ENT: Mouth and pharynx show moist MM, upper teeth missing, many lower teeth absent, those remaining are in poor repair LUNGS: diminished breath sounds; normal rate. Patient on O2 via NC CARDIOVASCULAR: RR without murmurs. No LE edema GI/ABD: soft without masses, without organomegaly. BS+ SKIN: pale, lichenification both ankles, sacral wound not visualized today PSYCH/MENTAL STATUS: Alert and oriented x 3. : catheter in place A/P Assessment and Plan 66 yr old M Hep C, hx of heavy smoking (2ppd for 61 yrs), and chronic aspirin use presented to the ED with anemia and black tarry stools secondary to suspected GI bleed. Patient transferred to ICU 09/30 for ESBL E.coli sepsis. Patient hemodynamically stable for transfer to med/surg 10/03. Discharge Planning Case Management to assist with SNF placement Pending infection workup and hematology clearance Problem List: (1) Bacteremia ICD Codes: R78.81 - Bacteremia Status: Acute Plan: ID consulted, appreciate recommendations * E.coli ESBL sepsis, source is likely GI, questionable SBP * Continue Ertapenem 1000 mg IV q24h (10/02) x 6-8 weeks per ID History: Transferred to med/surg floor 10/03; previously transferred to ICU secondary to ESBL sepsis. Patient met sepsis criteria 09/29 due to tachycardic at 95-113 and hypotension 86/53 Lactic acid 1.4 09/29, Repeat lactic acid 1.5 s/p 500cc bolus of NS, MIVF 140mls/hr 09/29 Critical Care consulted, appreciate recs. * CT abd/pelvis w/o contrast done 09/30 revealed moderate size left pleural effusion, ascites, 5cm infrarenal abdominal aortic aneurysm and mesenteric stranding. * CTA 10/01 7.3 cm AAA, contained rupture, cirrhosis, splenomegaly, cholelithiasis, moderate ascites, no evident of protal vein thrombosis or Budd- Chiari syndrome, COPD with bibasilar airspace disease and parapneumonic effusions * 2-D echo - 60-65% * Left pleural effusion- thoracentesis with removal of 750 cc of dark yellow fluid. Fluid appeared transudative. * Ascites- paracentesis with removal of 1100 cc of yellow fluids. This appeared due to portal hypertension. * Possibility of aortoenteric fistula Cultures: Blood- Cultures 10/10 negative x1 day Staph hominis 10/06 (pansensitive) ESBL E Coli 09/29 (resistant, to Ampicillin, Unasyn, Cefazolin, Cefepime, Cefuroxime, Levofloxacin) Antibiotic history: Vancomycin (restarted 10/07-10/11) Vancomycin 1,250mg IV q12h (09/29-10/01) Zosyn 4.5 gm IV q6h (started 09/30-09/22) Azithromycin 250mg PO daily (10/01-10/04) (2) Pancytopenia ICD Codes: D61.818 - Other pancytopenia Plan: Hem/Onc consulted, appreciate recs -Neupogen as needed -Monitor CBC and transfuse as needed -Continue daily folate Impression: Pancytopenia; failure to thrive. Per Hem Onc, treated in / cleared but titers elevated during hospitalization. WBC down since admission, Hb stable, plts trending down since admission A/P CT and CTA - pelvic ascites, 7.3cm infrarenal AAA, calcified gallstones, moderate pleural effusions, cirrhosis, CTA S/P thoracentesis, paracentesis Transfusion history: 2 units of RBCS transfused 09/28, 1 unit of RBCs transfused 09/29, and 1 unit of RBCs transfused 09/30 1 unit of FFP transfused 09/30 1 unit of Leuk-redu pheresis plts transfused 10/01 prior to thoracentesis (3) AAA (abdominal aortic aneurysm) ICD Codes: I71.4 - Abdominal aortic aneurysm, without rupture Plan: CT abd/pelvis w/o contrast done 09/30 5cm infrarenal abdominal aortic aneurysm Aorta CTA 7.3 cm infrarenal AAA with laminated wall, contained rupture which may be chronic and possible associated aortic wall inflammation indicating aortitis Vascular surgery consulted, appreciate recs No intervention for AAA until infection cleared Continue to follow at this time (4) GI bleed ICD Codes: K92.2 - Gastrointestinal hemorrhage, unspecified Status: Acute Plan: GI reconsulted for mesenteric stranding and ascites, appreciate recommendations -Protonix 40mg IV BID -Supportive care -Sign off; consult as needed Avoid NSAIDs and anticoagulation EGD in 2 months Colonoscopy in 2 years History: Hb of 6.1 upon admission,1 month hx of black tarry stools, chronic aspirin use 2 units of RBCS transfused 09/28, 1 unit of RBCs transfused 09/29, and 1 unit of RBCs transfused 09/30 Hb stable Hemoccult performed by RN in ED on 09/28- positive EGD/colonoscopy demonstrated hiatal hernia, gastric ulcer, erosive gastritis and colon polyp Duo/stomach biopsy- Stomach, reactive/chemical gastropathy with intestinal metaplasia. Colon, sigmoid, adenomatous polyp HCV quant, less than 15 IUs/ ml, less than 1.18 log IUs/mlAlpha-feto protein wnl Elevated ferritin levels due to underlying cirrhosis most likely AMSA, AMA negative A1AT 148 Hemochromatosis workup negative (5) Diarrhea ICD Codes: R19.7 - Diarrhea, unspecified Status: Resolved Plan: Diarrhea with fecal incontinence for multiple days-Improving -C diff negative & hemoccult negative (6) Hematuria ICD Codes: R31.9 - Hematuria, unspecified Plan: -UA 09/30 moderate occult blood, unlikely traumatic, patient has condom catheter -PSA wnl 0.15 -Renal US 10/04 demonstrated small nonobstructing 3mm calyceal calculus in the mid left kidney. 1.4 cm cyst in the inferior pole of the right kidney. -Urology consulted, recs appreciated Urologic impression: gross hematuria (now resolved) of indeterminate etiology; abnormal coagulation profile and thrombocytopenia likely contributing to the hematuria * manage conservatively for now * office follow up after hospital discharge when overall medical condition improved for cystoscopic evaluation [phone] * will be available as needed during present hospitalization (7) Hepatitis C ICD Codes: B19.20 - Unspecified viral hepatitis C without hepatic coma Plan: Patient reports history of Hep C. Patient reports being treated in the s. LFTs wnl. alpha fetoprotein wnl HCV quant, less than 15 IUs/ml, less than 1.18 log IUs/ml (8) Abnormal chest x-ray ICD Codes: R93.8 - Abnormal findings on diagnostic imaging of other specified body structures Plan: Impression: Heavy smoker. Mass 2.51 x 3.86 found on CXR. Small free- flowing right pleural effusion at the base. CT revealed dominant opacity seen on recent CXR represents loculated pleural effusion in the superior major fissure. Small b/l pleural effusions, mild consolidative infiltrates in the right lower lung, and right upper abdominal ascites. Calcified gallstones. S/p thoracentesis 10/01/2017- pleural fluid negative for malignancy (9) Hypokalemia ICD Codes: E87.6 - Hypokalemia Plan: Impression: K 2.9 10/10 Mg wnl -Improved to 3.5 today Replace orally if needed Continue to monitor (10) RALF (acute kidney injury) ICD Codes: N17.9 - Acute kidney failure, unspecified Status: Resolved Plan: -Improving -Continue to monitor Impression: RALF secondary to dehydration BUN 28 and Cr 0.53 upon admission (11) Sacral wound ICD Codes: S31.000A - Unspecified open wound of lower back and pelvis without penetration into retroperitoneum, initial encounter Plan: Unstageable sacral wound, 3cm x 6cm Wound care consulted, recommendations appreciated 1) Cleanse sacral wound with normal saline,pat dry. 2) Apply skin prep to gibran wound 3) Santyl josé thick to wound bed 4) Cover with Maxorb 2 cut to fit. 5) Cover with dry dressing (boarder gauze) 6) Change dressing Daily (12) Nutrition, metabolism, and development symptoms ICD Codes: R63.8 - Other symptoms and signs concerning food and fluid intake Plan: Fluids: 100mls/hr NS due to poor appetite Diet: Regular Basic Electrolytes: monitor and replace as needed Other: Case management consulted GI ppx: Protonix 40mg IV q12h DVT ppx: SCDs Problem Qualifiers (1) GI bleed: Qualified Codes: K92.2 - Gastrointestinal hemorrhage, unspecified (2) Diarrhea: Qualified Codes: R19.7 - Diarrhea, unspecified John Gotti MD, R2 Oct 12, 2017 09:24
[2017-10-12 09:41] LABS: BANDS 2 % (0-6); LYMPHOCYTES 29 % (9-44); MONOCYTES 4 % (0-8); MYELOCYTES 1 % (0-0); NEUTROPHIL # MANUAL DIFF 1.3 TH/MM3 (1.8-7.7); POLYS (SEG NEUTROPHILS) 64 % (16-70)
--- NOTE | 2017-10-12 09:46 | PD.CAR.PN ---
CVT Progress Note Subjective/Hospital Course: Patient with a large abdominal aortic aneurysm that would technically be amiable to endovascular reconstruction. Nonetheless patient has multiple medical problems including pancytopenia/sepsis with positive blood cultures bilateral pleural effusions and the significant weight loss with emaciation. Patient does not have a rupture contained are otherwise and there is an inflammatory component to the wall of the aneurysm At this point patient has multiple problems preclusive of any endovascular intervention Continue to follow this time 10/12/17 Patient greatly improved Sepsis has resolved and patient is taking by mouth diet Most of the medical issues remaining or chronic However in the face of septic keratitis patient was should not have endovascular grafts or open grafts for that matter still there is improved that infection has resolved This should be at least a 6-8 weeks after the initial event Should septic keratitis resolve we will go ahead with endovascular repair at that time. Objective: Vital Signs Date Time Temp Pulse Resp B/P (MAP) Pulse Ox O2 Delivery O2 Flow Rate FiO2 10/12/17 08:00 97.3 92 16 116/57 (76) 95 10/12/17 00:15 96.8 90 18 121/61 (81) 96 10/11/17 20:32 Nasal Cannula 5.00 10/11/17 20:00 96.7 95 16 108/66 (80) 94 10/11/17 20:00 90 10/11/17 16:00 95.3 97 19 114/64 (81) 97 10/11/17 12:00 95.3 92 17 111/64 (80) 97 10/11/17 11:47 98 Nasal Cannula 5.00 Labs: Laboratory Tests Test 10/12/17 06:45 White Blood Count 2.0 TH/MM3 (4.0-11.0) Red Blood Count 2.55 MIL/MM3 (4.50-5.90) Hemoglobin 8.2 GM/DL (13.0-17.0) Hematocrit 24.5 % (39.0-51.0) Mean Corpuscular Volume 96.1 FL (80.0-100.0) Mean Corpuscular Hemoglobin 32.2 PG (27.0-34.0) Mean Corpuscular Hemoglobin Concent 33.5 % (32.0-36.0) Red Cell Distribution Width 19.0 % (11.6-17.2) Platelet Count 44 TH/MM3 (150-450) Mean Platelet Volume 8.3 FL (7.0-11.0) Neutrophils (%) (Auto) 45.9 % (16.0-70.0) Lymphocytes (%) (Auto) 40.4 % (9.0-44.0) Monocytes (%) (Auto) 12.3 % (0.0-8.0) Eosinophils (%) (Auto) 0.8 % (0.0-4.0) Basophils (%) (Auto) 0.6 % (0.0-2.0) Neutrophils # (Auto) 0.9 TH/MM3 (1.8-7.7) Lymphocytes # (Auto) 0.8 TH/MM3 (1.0-4.8) Monocytes # (Auto) 0.2 TH/MM3 (0-0.9) Eosinophils # (Auto) 0.0 TH/MM3 (0-0.4) Basophils # (Auto) 0.0 TH/MM3 (0-0.2) CBC Comment AUTO DIFF Differential Total Cells Counted 100 Neutrophils % (Manual) 64 % (16-70) Band Neutrophils % 2 % (0-6) Lymphocytes % 29 % (9-44) Monocytes % 4 % (0-8) Neutrophils # (Manual) 1.3 TH/MM3 (1.8-7.7) Myelocytes 1 % (0-0) Differential Comment FINAL DIFF MANUAL Platelet Estimate LOW (NORMAL) Platelet Morphology Comment NORMAL (NORMAL) Basophilic Stippling FAINT (NORMAL) Blood Urea Nitrogen 9 MG/DL (7-18) Creatinine 0.17 MG/DL (0.60-1.30) Random Glucose 69 MG/DL (74-106) Calcium Level 7.8 MG/DL (8.5-10.1) Sodium Level 145 MEQ/L (136-145) Potassium Level 3.5 MEQ/L (3.5-5.1) Chloride Level 108 MEQ/L (98-107) Carbon Dioxide Level 33.2 MEQ/L (21.0-32.0) Anion Gap 4 MEQ/L (5-15) Estimat Glomerular Filtration Rate 578 ML/MIN (>89) Result Diagram: 10/12/17 0645 10/12/17 0645 Jamee Hernandez MD Oct 12, 2017 09:46
[2017-10-12] MEDS: ERTAPENEM INJ 1,000 MG in SODIUM CHLORIDE 0.9% INJ 100 ML IV SCH (15:08)
--- NOTE | 2017-10-12 16:44 | HHI.PR ---
Addendum to Inpatient Note Addendum Reason: Additional Documentation Additional Information Residents notified about patient having lower UOP than expected for being on IVF at 100 cc/hr and patient having some edema. On arrival patient states he's feeling okay except being uncomfortable in his back due to the bed. Denies CP. Does not feel short of breath. Did not notice any swelling. Objective Gen: WDWN, NAD Vitals: Reviewed as documented in chart Lungs: Severely diminished / absent breath sounds of R lung. L lung vesicular with no crackles or wheezes. Heart: NRRR, no MRG MSK: 1+ edema at the ankles and hips bilaterally. Skin: R medial heel with ichthyosis Plan Stat CXR to evaluate diminished breath sounds. Consider Lasix based on CXR results. Patient otherwise stable. Gautam Calderon Dr., MD Oct 12, 2017 16:44
[2017-10-12] MEDS ORDERED: FUROSEMIDE 40 MG/4 ML VIAL IV PUSH ONE (17:30)
--- NOTE | 2017-10-12 17:35 | RADRPT ---
EXAM DATE/TIME: 10/12/2017 16:33 [facility] COMPARISON: CHEST SINGLE AP, October 01, 2017, 12:00. INDICATIONS : Pleural effusion. MEDICAL HISTORY : Hepatitis C. Tobacco use. Pleural effusion. Ascites. SURGICAL HISTORY : None. ENCOUNTER: Subsequent ACUITY: 2 weeks PAIN SCORE: 0/10 LOCATION: Bilateral chest FINDINGS: Single AP view of the chest. Hazy opacity is again identified in the left mid to lower lung zone with medial left lower lobe atelectasis. Mildly increased prominence of the pulmonary vasculature. Cardia c silhouette unchanged. Small left pleural effusion. CONCLUSION: 1. Increased pulmonary vascular congestion. 2. Persistent left lower lobe atelectasis/consolidation and small left pleural effusion. Rohit Hendrickson MD on October 12, 2017 at 17:32 Board Certified Radiologist. This report was verified electronically.
[2017-10-13] VITALS (8 sets, daily range): BP systolic 103–113; BP diastolic 59–83; PULSE 89–114; RESP 16–18; TEMP 96.4–97.3; O2SAT 93–100
[2017-10-13] MEDS: PANTOPRAZOLE SODIUM 40 MG VIAL IV PUSH SCH ×2 (03:24→13:11)
[2017-10-13] MEDS: SODIUM CHLOR 0.9% 1000 ML INJ 1,000 ML IV SCH ×2 (03:25→19:52)
[2017-10-13 07:19] LABS: AUTOMATED NEUTROPHIL # 0.9 TH/MM3 (1.8-7.7); BASOPHIL % 0.5 % (0.0-2.0); EOSINOPHIL % 0.9 % (0.0-4.0); HEMATOCRIT 21.6 % (39.0-51.0); HEMOGLOBIN 7.2 GM/DL (13.0-17.0); LYMPHOCYTE # 0.7 TH/MM3 (1.0-4.8); MEAN CORPUSCULAR HEMOGLOBIN 31.9 PG (27.0-34.0); MEAN CORPUSCULAR HGB CONC 33.5 % (32.0-36.0); MEAN PLATELET VOLUME 8.3 FL (7.0-11.0); MONO % 12.5 % (0.0-8.0); MONOCYTE # 0.2 TH/MM3 (0-0.9); NEUT % 47.1 % (16.0-70.0); PLATELET COUNT 42 TH/MM3 (150-450); RED BLOOD COUNT 2.27 MIL/MM3 (4.50-5.90); RED CELL DISTRIBUTION WIDTH 18.7 % (11.6-17.2); WHITE BLOOD COUNT 1.9 TH/MM3 (4.0-11.0)
[2017-10-13 08:01] LABS: BICARBONATE 38.1 MEQ/L (21.0-32.0); CALCIUM 7.8 MG/DL (8.5-10.1); CREATININE 0.17 MG/DL (0.60-1.30)
[2017-10-13] MEDS: SODIUM CHLORIDE 0.9% FLUSH 10 ML FLUSH IV FLUSH SCH ×2 (08:55→19:52)
[2017-10-13] MEDS: FOLIC ACID 1 MG TAB PO SCH (08:55)
[2017-10-13] MEDS: COLLAGENASE OINT 30 GM TUBE TOPICAL SCH ×2 (08:57→09:00)
[2017-10-13 09:20] LABS: BANDS 4 % (0-6); LYMPHOCYTES 20 % (9-44); MONOCYTES 8 % (0-8); NEUTROPHIL # MANUAL DIFF 1.4 TH/MM3 (1.8-7.7); POLYS (SEG NEUTROPHILS) 68 % (16-70); TOXIC GRANULATION 2+ (NORMAL)
[2017-10-13 09:21] LABS: OVALOCYTES 1+ (NORMAL); STOMATOCYTES 1+ (NORMAL)
[2017-10-13] MEDS ORDERED: POTASSIUM CHLORIDE 20 MEQ CONTROLLED RELEASE TAB PO ONE ×2 (09:30→15:30)
[2017-10-13] MEDS: ERTAPENEM INJ 1,000 MG in SODIUM CHLORIDE 0.9% INJ 100 ML IV SCH (13:11)
--- NOTE | 2017-10-13 13:34 | HHI.FPPN ---
Subjective Remarks Patient seen and examined this morning. Patient states he is doing well. He reports his bowel movements have improved, becoming more solid and better controlled. Denies N/V/F/C, chest pain, SOB, abdominal pain, change in bladder habits. Objective Vitals Vital Signs Date Time Temp Pulse Resp B/P (MAP) Pulse Ox O2 Delivery O2 Flow Rate FiO2 10/13/17 12:00 96.8 91 16 113/83 (93) 99 10/13/17 08:32 99 Nasal Cannula 5.00 10/13/17 08:00 100 Nasal Cannula 5.00 10/13/17 08:00 97.3 94 18 108/63 (78) 100 10/13/17 00:00 96.9 96 16 103/59 (74) 99 10/12/17 22:00 Nasal Cannula 5.00 10/12/17 20:00 97.3 96 16 115/67 (83) 92 10/12/17 20:00 93 10/12/17 16:00 97.2 92 20 119/71 (87) 100 10/12/17 15:48 95 I/O 10/12/17 10/12/17 10/12/17 10/13/17 10/13/17 10/13/17 06:59 14:59 22:59 06:59 14:59 22:59 Intake Total 1570 ml 990 ml 670 ml 1483 ml Output Total 600 ml 550 ml 3650 ml Balance 970 ml 990 ml 120 ml -2167 ml Intake Oral 580 ml 120 ml 360 ml IV Total 990 ml 990 ml 550 ml 1123 ml Output Urine Total 600 ml 550 ml 3650 ml # Bowel Movements 0 0 Result Diagram: 10/13/1736 10/13/1736 Objective Remarks CONSTITUTIONAL/GEN: Cachectic male, pale and weak ENT: Mouth and pharynx show moist MM, upper teeth missing, many lower teeth absent, those remaining are in poor repair LUNGS: diminished breath sounds; normal rate. Patient on O2 via NC CARDIOVASCULAR: RR without murmurs. No LE edema GI/ABD: soft without masses, without organomegaly. BS+ SKIN: pale, lichenification both ankles, sacral wound not visualized today PSYCH/MENTAL STATUS: Alert and oriented x 3. : catheter in place A/P Assessment and Plan 66 yr old M Hep C, hx of heavy smoking (2ppd for 61 yrs), and chronic aspirin use presented to the ED with anemia and black tarry stools secondary to suspected GI bleed. Patient transferred to ICU 09/30 for ESBL E.coli sepsis. Patient hemodynamically stable for transfer to med/surg 10/03. Discharge Planning Case Management to assist with SNF placement Pending infection workup and hematology clearance Problem List: (1) Bacteremia ICD Codes: R78.81 - Bacteremia Status: Acute Plan: ID consulted, appreciate recommendations * E.coli ESBL sepsis, source is likely GI, questionable SBP * Continue Ertapenem 1000 mg IV q24h (10/02) x 6-8 weeks per ID History: Transferred to med/surg floor 10/03; previously transferred to ICU secondary to ESBL sepsis. Patient met sepsis criteria 09/29 due to tachycardic at 95-113 and hypotension 86/53 Lactic acid 1.4 09/29, Repeat lactic acid 1.5 s/p 500cc bolus of NS, MIVF 140mls/hr 09/29 Critical Care consulted, appreciate recs. * CT abd/pelvis w/o contrast done 09/30 revealed moderate size left pleural effusion, ascites, 5cm infrarenal abdominal aortic aneurysm and mesenteric stranding. * CTA 10/01 7.3 cm AAA, contained rupture, cirrhosis, splenomegaly, cholelithiasis, moderate ascites, no evident of protal vein thrombosis or Budd- Chiari syndrome, COPD with bibasilar airspace disease and parapneumonic effusions * 2-D echo - 60-65% * Left pleural effusion- thoracentesis with removal of 750 cc of dark yellow fluid. Fluid appeared transudative. * Ascites- paracentesis with removal of 1100 cc of yellow fluids. This appeared due to portal hypertension. * Possibility of aortoenteric fistula Cultures: Blood- Cultures 10/10 negative x1 day Staph hominis 10/06 (pansensitive) ESBL E Coli 09/29 (resistant, to Ampicillin, Unasyn, Cefazolin, Cefepime, Cefuroxime, Levofloxacin) Antibiotic history: Vancomycin (restarted 10/07-10/11) Vancomycin 1,250mg IV q12h (09/29-10/01) Zosyn 4.5 gm IV q6h (started 09/30-09/22) Azithromycin 250mg PO daily (10/01-10/04) (2) Pancytopenia ICD Codes: D61.818 - Other pancytopenia Plan: Hem/Onc consulted, appreciate recs -Neupogen as needed -Monitor CBC and transfuse as needed -Continue daily folate Impression: Pancytopenia; failure to thrive. Per Hem Onc, treated in / cleared but titers elevated during hospitalization. WBC down since admission, Hb stable, plts trending down since admission A/P CT and CTA - pelvic ascites, 7.3cm infrarenal AAA, calcified gallstones, moderate pleural effusions, cirrhosis, CTA S/P thoracentesis, paracentesis Transfusion history: 2 units of RBCS transfused 09/28, 1 unit of RBCs transfused 09/29, and 1 unit of RBCs transfused 09/30 1 unit of FFP transfused 09/30 1 unit of Leuk-redu pheresis plts transfused 10/01 prior to thoracentesis (3) AAA (abdominal aortic aneurysm) ICD Codes: I71.4 - Abdominal aortic aneurysm, without rupture Plan: CT abd/pelvis w/o contrast done 09/30 5cm infrarenal abdominal aortic aneurysm Aorta CTA 7.3 cm infrarenal AAA with laminated wall, contained rupture which may be chronic and possible associated aortic wall inflammation indicating aortitis Vascular surgery consulted, appreciate recs No intervention for AAA until infection cleared Continue to follow at this time (4) GI bleed ICD Codes: K92.2 - Gastrointestinal hemorrhage, unspecified Status: Acute Plan: GI reconsulted for mesenteric stranding and ascites, appreciate recommendations -Protonix 40mg IV BID -Supportive care -Sign off; consult as needed Avoid NSAIDs and anticoagulation EGD in 2 months Colonoscopy in 2 years History: Hb of 6.1 upon admission,1 month hx of black tarry stools, chronic aspirin use 2 units of RBCS transfused 09/28, 1 unit of RBCs transfused 09/29, and 1 unit of RBCs transfused 09/30 Hb stable Hemoccult performed by RN in ED on 09/28- positive EGD/colonoscopy demonstrated hiatal hernia, gastric ulcer, erosive gastritis and colon polyp Duo/stomach biopsy- Stomach, reactive/chemical gastropathy with intestinal metaplasia. Colon, sigmoid, adenomatous polyp HCV quant, less than 15 IUs/ ml, less than 1.18 log IUs/mlAlpha-feto protein wnl Elevated ferritin levels due to underlying cirrhosis most likely AMSA, AMA negative A1AT 148 Hemochromatosis workup negative (5) Diarrhea ICD Codes: R19.7 - Diarrhea, unspecified Status: Resolved Plan: Diarrhea with fecal incontinence for multiple days- Improving, becoming more solid and less frequent -C diff negative & hemoccult negative (6) Hematuria ICD Codes: R31.9 - Hematuria, unspecified Plan: -UA 09/30 moderate occult blood, unlikely traumatic, patient has condom catheter -PSA wnl 0.15 -Renal US 10/04 demonstrated small nonobstructing 3mm calyceal calculus in the mid left kidney. 1.4 cm cyst in the inferior pole of the right kidney. -Urology consulted, recs appreciated Urologic impression: gross hematuria (now resolved) of indeterminate etiology; abnormal coagulation profile and thrombocytopenia likely contributing to the hematuria * manage conservatively for now * office follow up after hospital discharge when overall medical condition improved for cystoscopic evaluation [phone] * will be available as needed during present hospitalization (7) Hepatitis C ICD Codes: B19.20 - Unspecified viral hepatitis C without hepatic coma Plan: Patient reports history of Hep C. Patient reports being treated in the . LFTs wnl. alpha fetoprotein wnl HCV quant, less than 15 IUs/ml, less than 1.18 log IUs/ml (8) Abnormal chest x-ray ICD Codes: R93.8 - Abnormal findings on diagnostic imaging of other specified body structures Plan: Impression: Heavy smoker. Mass 2.51 x 3.86 found on CXR. Small free- flowing right pleural effusion at the base. CT revealed dominant opacity seen on recent CXR represents loculated pleural effusion in the superior major fissure. Small b/l pleural effusions, mild consolidative infiltrates in the right lower lung, and right upper abdominal ascites. Calcified gallstones. S/p thoracentesis 10/01/2017- pleural fluid negative for malignancy (9) Hypokalemia ICD Codes: E87.6 - Hypokalemia Plan: Impression: K 2.8 10/13 -40 meq Kcl -F/U BMP today Replace orally if needed Continue to monitor (10) RALF (acute kidney injury) ICD Codes: N17.9 - Acute kidney failure, unspecified Status: Resolved Plan: -Improving -Continue to monitor Impression: RALF secondary to dehydration BUN 28 and Cr 0.53 upon admission (11) Sacral wound ICD Codes: S31.000A - Unspecified open wound of lower back and pelvis without penetration into retroperitoneum, initial encounter Plan: Unstageable sacral wound, 3cm x 6cm Wound care consulted, recommendations appreciated 1) Cleanse sacral wound with normal saline,pat dry. 2) Apply skin prep to gibran wound 3) Santyl josé thick to wound bed 4) Cover with Maxorb 2 cut to fit. 5) Cover with dry dressing (boarder gauze) 6) Change dressing Daily (12) Nutrition, metabolism, and development symptoms ICD Codes: R63.8 - Other symptoms and signs concerning food and fluid intake Plan: Fluids: 100mls/hr NS due to poor appetite Diet: Regular Basic Electrolytes: monitor and replace as needed Other: Case management consulted GI ppx: Protonix 40mg IV q12h DVT ppx: SCDs Problem Qualifiers (1) GI bleed: Qualified Codes: K92.2 - Gastrointestinal hemorrhage, unspecified (2) Diarrhea: Qualified Codes: R19.7 - Diarrhea, unspecified Edilson Shoemaker MD R1 Oct 13, 2017 13:34
[2017-10-13 14:18] LABS: CREATININE 0.16 MG/DL (0.60-1.30)
[2017-10-14] VITALS (11 sets, daily range): BP systolic 100–108; BP diastolic 59–69; PULSE 89–122; RESP 15–18; TEMP 96.3–97.9; O2SAT 92–94
[2017-10-14] MEDS: PANTOPRAZOLE SODIUM 40 MG VIAL IV PUSH SCH ×2 (00:24→14:13)
[2017-10-14 05:27] LABS: BICARBONATE 36.2 MEQ/L (21.0-32.0); CALCIUM 8.2 MG/DL (8.5-10.1); CREATININE 0.16 MG/DL (0.60-1.30)
[2017-10-14 05:30] LABS: BASOPHIL % 0.9 % (0.0-2.0); EOSINOPHIL % 0.7 % (0.0-4.0); HEMATOCRIT 23.9 % (39.0-51.0); LYMPH % 40.3 % (9.0-44.0); LYMPHOCYTE # 0.9 TH/MM3 (1.0-4.8); MEAN CELL VOLUME 96.2 FL (80.0-100.0); MEAN CORPUSCULAR HEMOGLOBIN 32.2 PG (27.0-34.0); MEAN CORPUSCULAR HGB CONC 33.5 % (32.0-36.0); MEAN PLATELET VOLUME 8.6 FL (7.0-11.0); MONO % 12.5 % (0.0-8.0); MONOCYTE # 0.3 TH/MM3 (0-0.9); NEUT % 45.6 % (16.0-70.0); PLATELET COUNT 45 TH/MM3 (150-450); RED BLOOD COUNT 2.48 MIL/MM3 (4.50-5.90); RED CELL DISTRIBUTION WIDTH 19.2 % (11.6-17.2); WHITE BLOOD COUNT 2.2 TH/MM3 (4.0-11.0)
[2017-10-14 07:20] LABS: OVALOCYTES 1+ (NORMAL); TOXIC GRANULATION 1+ (NORMAL)
[2017-10-14] MEDS ORDERED: POTASSIUM CHLORIDE 20 MEQ CONTROLLED RELEASE TAB PO ONE (08:00)
[2017-10-14] MEDS: COLLAGENASE OINT 30 GM TUBE TOPICAL SCH (08:30)
[2017-10-14] MEDS: FOLIC ACID 1 MG TAB PO SCH (08:30)
[2017-10-14] MEDS: SODIUM CHLORIDE 0.9% FLUSH 10 ML FLUSH IV FLUSH SCH ×2 (08:30→21:00)
--- NOTE | 2017-10-14 09:52 | HHI.FPPN ---
Subjective Remarks Patient seen and examined this morning. No acute events overnight. Patient denies any complaints/concerns today. He says does not have much of an appetite , but will try to drink his Ensures today. Denies any fevers or chills, chest pain, shortness of breath, abdominal pain, leg pain. Objective Vitals Vital Signs Date Time Temp Pulse Resp B/P (MAP) Pulse Ox O2 Delivery O2 Flow Rate FiO2 10/14/17 09:26 93 Nasal Cannula 5.00 10/14/17 08:00 96.5 95 15 105/64 (78) 93 10/14/17 04:41 96.8 122 18 106/66 (79) 92 10/14/17 04:13 102 10/14/17 00:00 96.5 98 18 100/65 (77) 93 10/13/17 23:54 101 10/13/17 20:59 Nasal Cannula 5.00 10/13/17 20:02 96 10/13/17 20:00 96.6 114 18 107/71 (83) 93 10/13/17 16:00 96.4 89 16 104/60 (75) 99 10/13/17 12:00 96.8 91 16 113/83 (93) 99 I/O 10/13/17 10/13/17 10/13/17 10/14/17 10/14/17 10/14/17 07:00 15:00 23:00 07:00 15:00 23:00 Intake Total 1483 ml 100 ml 1360 ml Output Total 3650 ml 450 ml 600 ml Balance -2167 ml 100 ml 910 ml -600 ml Intake Oral 360 ml 360 ml IV Total 1123 ml 100 ml 1000 ml Output Urine Total 3650 ml 450 ml 600 ml # Bowel Movements 1 1 Result Diagram: 10/14/17 0505 10/14/17 0505 Objective Remarks CONSTITUTIONAL/GEN: Cachectic male, lying in bed ENT: Mouth and pharynx show moist MM, upper teeth missing, many lower teeth absent, those remaining are in poor repair LUNGS: diminished breath sounds; normal rate. Patient on O2 via NC CARDIOVASCULAR: RR without murmurs. No LE edema GI/ABD: soft, nttp; BS+ SKIN: pale, lichenification both ankles, sacral wound not visualized today PSYCH/MENTAL STATUS: Alert and oriented x 3. : catheter in place A/P Assessment and Plan 66 yr old M Hep C, hx of heavy smoking (2ppd for 61 yrs), and chronic aspirin use presented to the ED with anemia and black tarry stools secondary to suspected GI bleed. Patient transferred to ICU 09/30 for ESBL E.coli sepsis. Patient hemodynamically stable for transfer to med/surg 10/03. Discharge Planning Case Management to assist with SNF placement Pending infection workup and hematology clearance Problem List: (1) Bacteremia ICD Codes: R78.81 - Bacteremia Status: Acute Plan: ID consulted, appreciate recommendations * E.coli ESBL sepsis, source is likely GI, questionable SBP * Continue Ertapenem 1000 mg IV q24h (10/02) x 6-8 weeks per ID History: Transferred to med/surg floor 10/03; previously transferred to ICU secondary to ESBL sepsis. Patient met sepsis criteria 09/29 due to tachycardic at 95-113 and hypotension 86/53 Lactic acid 1.4 09/29, Repeat lactic acid 1.5 s/p 500cc bolus of NS, MIVF 140mls/hr 09/29 * CT abd/pelvis w/o contrast done 09/30 revealed moderate size left pleural effusion, ascites, 5cm infrarenal abdominal aortic aneurysm and mesenteric stranding. * CTA 10/01 7.3 cm AAA, contained rupture, cirrhosis, splenomegaly, cholelithiasis, moderate ascites, no evident of protal vein thrombosis or Budd- Chiari syndrome, COPD with bibasilar airspace disease and parapneumonic effusions * 2-D echo - 60-65% EF * Left pleural effusion- thoracentesis with removal of 750 cc of dark yellow fluid. Fluid appeared transudative. * Ascites- paracentesis with removal of 1100 cc of yellow fluids. This appeared due to portal hypertension. * Possibility of aortoenteric fistula Cultures: Blood- Cultures 10/10 NGTD Staph hominis 10/06 (pansensitive) ESBL E Coli 09/29 (resistant, to Ampicillin, Unasyn, Cefazolin, Cefepime, Cefuroxime, Levofloxacin) Antibiotic history: Vancomycin (restarted 10/07-10/11) Vancomycin 1,250mg IV q12h (09/29-10/01) Zosyn 4.5 gm IV q6h (started 09/30-09/22) Azithromycin 250mg PO daily (10/01-10/04) (2) Pancytopenia ICD Codes: D61.818 - Other pancytopenia Plan: Hem/Onc consulted, appreciate recs -Neupogen as needed -Monitor CBC and transfuse as needed -Continue daily folate Impression: Pancytopenia; failure to thrive. Per Hem Onc, treated in / cleared but titers elevated during hospitalization. WBC down since admission, Hb stable, plts trending down since admission A/P CT and CTA - pelvic ascites, 7.3cm infrarenal AAA, calcified gallstones, moderate pleural effusions, cirrhosis, CTA S/P thoracentesis, paracentesis Transfusion history: 2 units of RBCS transfused 09/28, 1 unit of RBCs transfused 09/29, and 1 unit of RBCs transfused 09/30 1 unit of FFP transfused 09/30 1 unit of Leuk-redu pheresis plts transfused 10/01 prior to thoracentesis (3) AAA (abdominal aortic aneurysm) ICD Codes: I71.4 - Abdominal aortic aneurysm, without rupture Plan: CT abd/pelvis w/o contrast done 09/30 5cm infrarenal abdominal aortic aneurysm Aorta CTA 7.3 cm infrarenal AAA with laminated wall, contained rupture which may be chronic and possible associated aortic wall inflammation indicating aortitis Vascular surgery consulted, appreciate recs [facility] confirms that no intervention at this time No intervention for AAA until infection cleared Continue to follow at this time (4) GI bleed ICD Codes: K92.2 - Gastrointestinal hemorrhage, unspecified Status: Acute Plan: GI reconsulted for mesenteric stranding and ascites, appreciate recommendations -Protonix 40mg IV BID -Supportive care -Sign off; consult as needed Avoid NSAIDs and anticoagulation EGD in 2 months Colonoscopy in 2 years History: Hb of 6.1 upon admission,1 month hx of black tarry stools, chronic aspirin use 2 units of RBCS transfused 09/28, 1 unit of RBCs transfused 09/29, and 1 unit of RBCs transfused 09/30 Hb stable Hemoccult performed by RN in ED on 09/28- positive EGD/colonoscopy demonstrated hiatal hernia, gastric ulcer, erosive gastritis and colon polyp Duo/stomach biopsy- Stomach, reactive/chemical gastropathy with intestinal metaplasia. Colon, sigmoid, adenomatous polyp HCV quant, less than 15 IUs/ ml, less than 1.18 log IUs/mlAlpha-feto protein wnl Elevated ferritin levels due to underlying cirrhosis most likely AMSA, AMA negative A1AT 148 Hemochromatosis workup negative (5) Hematuria ICD Codes: R31.9 - Hematuria, unspecified Plan: -UA 09/30 moderate occult blood, unlikely traumatic, patient has condom catheter -PSA wnl 0.15 -Renal US 10/04 demonstrated small nonobstructing 3mm calyceal calculus in the mid left kidney. 1.4 cm cyst in the inferior pole of the right kidney. -Urology consulted, recs appreciated Urologic impression: gross hematuria (now resolved) of indeterminate etiology; abnormal coagulation profile and thrombocytopenia likely contributing to the hematuria * manage conservatively for now * office follow up after hospital discharge when overall medical condition improved for cystoscopic evaluation [phone] * will be available as needed during present hospitalization (6) Hepatitis C ICD Codes: B19.20 - Unspecified viral hepatitis C without hepatic coma Plan: Patient reports history of Hep C. Patient reports being treated in the s. LFTs wnl. alpha fetoprotein wnl HCV quant, less than 15 IUs/ml, less than 1.18 log IUs/ml (7) Abnormal chest x-ray ICD Codes: R93.8 - Abnormal findings on diagnostic imaging of other specified body structures Plan: Impression: Heavy smoker. Mass 2.51 x 3.86 found on CXR. Small free- flowing right pleural effusion at the base. CT revealed dominant opacity seen on recent CXR represents loculated pleural effusion in the superior major fissure. Small b/l pleural effusions, mild consolidative infiltrates in the right lower lung, and right upper abdominal ascites. Calcified gallstones. S/p thoracentesis 10/01/2017- pleural fluid negative for malignancy (8) RALF (acute kidney injury) ICD Codes: N17.9 - Acute kidney failure, unspecified Status: Resolved Plan: -Improving -Continue to monitor Impression: RALF secondary to dehydration BUN 28 and Cr 0.53 upon admission (9) Sacral wound ICD Codes: S31.000A - Unspecified open wound of lower back and pelvis without penetration into retroperitoneum, initial encounter Plan: Unstageable sacral wound, 3cm x 6cm Wound care consulted, recommendations appreciated 1) Cleanse sacral wound with normal saline,pat dry. 2) Apply skin prep to gibran wound 3) Santyl josé thick to wound bed 4) Cover with Maxorb 2 cut to fit. 5) Cover with dry dressing (boarder gauze) 6) Change dressing Daily (10) Nutrition, metabolism, and development symptoms ICD Codes: R63.8 - Other symptoms and signs concerning food and fluid intake Plan: Fluids: 100mls/hr NS due to poor appetite Diet: Regular Basic Electrolytes: monitor and replace as needed Other: Case management consulted GI ppx: Protonix 40mg IV q12h DVT ppx: SCDs Problem Qualifiers (1) GI bleed: Qualified Codes: K92.2 - Gastrointestinal hemorrhage, unspecified John Gotti MD, R2 Oct 14, 2017 09:52
[2017-10-14] MEDS: FILGRASTIM 300 MCG/ML VIAL SQ SCH (14:00)
[2017-10-14] MEDS: ERTAPENEM INJ 1,000 MG in SODIUM CHLORIDE 0.9% INJ 100 ML IV SCH (14:13)
[2017-10-14] MEDS: SODIUM CHLOR 0.9% 1000 ML INJ 1,000 ML IV SCH (17:53)
[2017-10-15] VITALS (8 sets, daily range): BP systolic 98–111; BP diastolic 57–73; PULSE 80–116; RESP 16–20; TEMP 96–97.9; O2SAT 92–93
[2017-10-15] MEDS: PANTOPRAZOLE SODIUM 40 MG VIAL IV PUSH SCH ×2 (02:09→14:53)
[2017-10-15] MEDS: SODIUM CHLORIDE 0.9% FLUSH 10 ML FLUSH IV FLUSH SCH (09:00)
[2017-10-15] MEDS: FOLIC ACID 1 MG TAB PO SCH (09:48)
[2017-10-15 10:18] LABS: BICARBONATE 33.2 MEQ/L (21.0-32.0); CALCIUM 8.2 MG/DL (8.5-10.1); CREATININE 0.16 MG/DL (0.60-1.30)
--- NOTE | 2017-10-15 10:43 | PD.ONC.PN ---
Subjective Subjective Remarks Afebrile overnight. Patient resting in bed in nad. NO complaints. No bleeding. Objective Data Date Time Temp Pulse Resp B/P (MAP) Pulse Ox O2 Delivery O2 Flow Rate FiO2 10/15/17 10:25 88 7.00 10/15/17 09:56 79 5.00 10/15/17 08:00 97.1 104 16 106/64 (78) 93 10/15/17 04:30 96.0 113 18 98/57 (71) 92 10/15/17 00:00 96.8 116 18 105/68 (80) 93 10/14/17 21:39 93 Nasal Cannula 5.00 10/14/17 20:00 97.9 110 18 101/59 (73) 92 10/14/17 16:00 96.3 90 16 106/63 (77) 94 10/14/17 15:00 93 10/14/17 12:00 96.9 93 17 108/69 (82) 94 10/14/17 11:04 89 10/14/17 11:03 5.00 10/15/17 10/15/17 10/15/17 07:00 15:00 23:00 Output Total 650 ml Balance -650 ml Result Diagram: 10/14/17 0505 10/15/17 0855 Laboratory Results Laboratory Tests Test 10/15/17 08:55 Blood Urea Nitrogen 14 MG/DL Creatinine 0.16 MG/DL Random Glucose 67 MG/DL Calcium Level 8.2 MG/DL Sodium Level 145 MEQ/L Potassium Level 3.9 MEQ/L Chloride Level 106 MEQ/L Carbon Dioxide Level 33.2 MEQ/L Anion Gap 6 MEQ/L Estimat Glomerular Filtration Rate 620 ML/MIN Administered Medications Medications (Trade) Dose Ordered Sig/Jailene Route PRN Reason Start Time Stop Time Status Last Admin Dose Admin Sodium Chloride (NS Flush) 2 ml BID IV FLUSH 09/28/17 13:45 10/13/17 19:52 Pantoprazole Sodium (Protonix Inj) 40 mg Q12H IV PUSH 09/28/17 14:00 10/15/17 02:09 Collagenase (Santyl Oint) 1 applic DAILY TOPICAL 09/29/17 12:45 10/14/17 08:30 Diphenhydramine HCl (Benadryl) 25 mg Q4H PRN PO SEE LABEL COMMENTS 10/01/17 09:30 12/13/17 09:30 Diphenhydramine HCl (Benadryl 2% Cream) 1 applic TID PRN TOPICAL ITCHING 10/02/17 10:00 10/02/17 10:23 Folic Acid (Folate) 1 mg DAILY PO 10/02/17 11:00 10/15/17 09:48 Sodium Chloride 1,000 ml @ 50 mls/hr Q20H IV 10/04/17 13:45 10/14/17 17:53 Ertapenem 1000 mg/ Sodium Chloride 100 ml @ 200 mls/hr Q24H IV 10/06/17 14:00 10/14/17 14:13 Filgrastim (Neupogen Inj) 300 mcg DAILY@14 SQ 10/14/17 14:00 10/16/17 13:59 10/14/17 14:00 Objective Remarks GENERAL: chronically ill male in hospital bed in [facility]. SKIN: dry skin HEAD: Normocephalic. EYES: No injection or drainage. NECK: Supple, trachea midline. CARDIOVASCULAR: +S1/S2 RESPIRATORY: occasional rhonchi in anterior post. GASTROINTESTINAL: Abdomen soft, non-tender, nondistended. EXTREMITIES: No cyanosis NEUROLOGICAL: awake and alert, normal speech. Assessment/Plan Problem List: (1) Pancytopenia ICD Codes: D61.818 - Other pancytopenia Assessment 66y/o male with pancytopenia and failure to thrive. --history of hepatitis C diagnosed in the 1980s;states he was treated for the hepatitis C and this was "cleared". Repeat hepatitis C titers this hospitalization indicate low circulating hepatitis C vital titers. --CT angiogram showed cirrhotic-appearing liver with splenomegaly and moderate ascites. --likely has baseline pancytopenia due to cirrhosis and splenomegaly with further drop in the white blood cell and platelet count due to recent sepsis. Plan 1. await CBC today 2. continue Soil[employer] Maria Elena Gómez Oct 15, 2017 10:43
--- NOTE | 2017-10-15 11:35 | RADRPT ---
EXAM DATE/TIME: 10/15/2017 11:07 [place] COMPARISON: CHEST SINGLE AP, October 12, 2017, 16:33. INDICATIONS : Hypoxia. Left effusion. MEDICAL HISTORY : Hepatitis C. Tobacco use. Pleural effusion. Ascites. SURGICAL HISTORY : None. ENCOUNTER: Subsequent ACUITY: 2 weeks PAIN SCORE: 0/10 LOCATION: Bilateral chest FINDINGS: A single AP portable erect view of the chest was obtained and again demonstrate hazy opacity in the l eft perihilar region left lung base with blunting of the costophrenic angle consistent with a small t o moderate effusion. This is not significantly changed. There is a small right effusion. The heart si ze remains at the upper limits of normal. The patient is mildly rotated to the right. Atherosclerotic change is again noted in the aorta. There is tubing projected over the lower left chest wall. CONCLUSION: No significant change. There is a small to moderate left effusion. Edilson Abreu MD on October 15, 2017 at 11:31 Board Certified Radiologist. This report was verified electronically.
--- NOTE | 2017-10-15 12:12 | HHI.FPPN ---
Subjective Remarks Mr. Friedman was afebrile with mild tachycardia overnight (max 116 bpm) with O2 sat of 92-93% on 5L O2 via NC. Patient had 1075 ml urine output overnight. 2 BM overnight. Patient does not report any shortness of breath. Patient does not report any chest, abdominal, or other pain. Patient reports loose stools. Remarks Residents paged regarding patient having hypoxia on VS assessment with O2 sat ~ 79% on 5 L O2 via NC; patient's NC O2 was then increased to 7 L where his O2 saturation was 88%. Patient re-evaluated: he does not report chest pain, shortness of breath, or other symptoms. Patient had just finished being bathed by [employer] staff. O2 saturation was again taken by [employer] and found to be ~92%. Other VS were unchanged (mild tachycardia 100-120 bpm, BP with MAP ~70). Patient's mood was also discussed; he does not report any depression or interest in trying an antidepressant. Objective Vitals Vital Signs Date Time Temp Pulse Resp B/P (MAP) Pulse Ox O2 Delivery O2 Flow Rate FiO2 10/15/17 10:25 88 7.00 10/15/17 09:56 79 5.00 10/15/17 08:00 97.1 104 16 106/64 (78) 93 10/15/17 04:30 96.0 113 18 98/57 (71) 92 10/15/17 00:00 96.8 116 18 105/68 (80) 93 10/14/17 21:39 93 Nasal Cannula 5.00 10/14/17 20:00 97.9 110 18 101/59 (73) 92 10/14/17 16:00 96.3 90 16 106/63 (77) 94 10/14/17 15:00 93 I/O 10/14/17 10/14/17 10/14/17 10/15/17 10/15/17 10/15/17 07:00 15:00 23:00 07:00 15:00 23:00 Intake Total 180 ml Output Total 600 ml 425 ml 650 ml Balance -600 ml -245 ml -650 ml Intake Oral 180 ml Output Urine Total 600 ml 425 ml 650 ml # Bowel Movements 1 1 1 Result Diagram: 10/14/17 0505 10/15/17 0855 Imaging Last Impressions Chest X-Ray 10/15/17 0000 Signed Impressions: Service Date/Time: Sunday, October 15, 2017 11:07 - CONCLUSION: No significant change. There is a small to moderate left effusion. Edilson Abreu MD Renal Ultrasound 10/04/17 0000 Signed Impressions: Service Date/Time: Wednesday, October 04, 2017 10:29 - CONCLUSION: 1. Small nonobstructing 3 mm calyceal calculus in the mid left kidney. 2. 1.4 cm cyst in the inferior pole of the right kidney. 3. Small amount of ascites. Rohan Leigh MD Aorta CTA 10/01/17 1556 Signed Impressions: Service Date/Time: Sunday, October 01, 2017 17:11 - CONCLUSION: 1. 7.3 cm infrarenal abdominal aortic aneurysm with laminated wall as described above. Findings suggest a contained rupture which may be chronic and possible associated aortic wall inflammation indicating aortitis. 2. Chronic liver disease characteristic of cirrhosis. 3. Splenomegaly 4. Cholelithiasis 5. Moderate ascites 6. No evidence of portal vein thrombosis or Budd-Chiari syndrome. 7. COPD with bibasilar airspace disease and parapneumonic effusions. 1. Herve Berumen MD Thoracentesis Ultrasound 10/01/17 0000 Signed Impressions: Service Date/Time: Sunday, October 01, 2017 11:27 - CONCLUSION: Uncomplicated ultrasound guided thoracentesis. Marc Alfredo MD Cyst Biopsy Asp-Paracentesis US 10/01/17 0000 Signed Impressions: Service Date/Time: Sunday, October 01, 2017 09:53 - CONCLUSION: Uncomplicated ultrasound guided paracentesis. Marc Alfredo MD Abdomen/Pelvis CT 09/30/17 0000 Signed Impressions: Service Date/Time: Sunday, October 01, 2017 02:21 - CONCLUSION: 1. 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 2. Moderate pleural effusions and moderate amount of abdominal pelvic ascites. 3. 2 calcified gallstones. David Blunt MD Chest CT 09/28/17 0000 Signed Impressions: Service Date/Time: Friday, September 29, 2017 01:23 - CONCLUSION: 1. The dominant opacity seen on recent chest x-ray represents loculated pleural effusion in the superior major fissure. 2. Small bilateral pleural effusions, mild consolidative infiltrates in the right lower lung, and right upper abdominal ascites. 3. Calcified gallstones. David Blunt MD Objective Remarks CONSTITUTIONAL/GEN: Cachectic male, lying in bed ENT: Mouth and pharynx show moist MM, upper teeth missing, many lower teeth absent, those remaining are in poor repair LUNGS: Decreased breath sounds bilaterally; normal rate. Patient on 7L O2 via NC CARDIOVASCULAR: Tachycardic to ~110bpm without murmurs. No LE edema GI/ABD: soft, normal BS; no pain to palpation SKIN: pale, lichenification both ankles. sacrum visualized when being turned by [employer] staff; dressing in placed PSYCH/MENTAL STATUS: Alert and oriented x 3. No appreciated CN defects. No peripheral motor/sensory defects : catheter in place; reddish urine in schaefer bag A/P Assessment and Plan 66 yr old M Hep C, hx of heavy smoking (2ppd for 61 yrs), and chronic aspirin use presented to the ED with anemia and black tarry stools secondary to suspected GI bleed. Patient transferred to ICU 09/30 for ESBL E.coli sepsis. Patient hemodynamically stable for transfer to med/surg 10/03. Discharge Planning Case Management to assist with SNF placement Pending infection workup and hematology clearance Problem List: (1) Hypoxia ICD Codes: R09.02 - Hypoxemia Status: Acute Plan: -Will check CXR -no interval change from 10/12 (pulmonary vascular congestion, L sided effusion) -Will check ABG -pH 7.42, pCO2 57, pO2 55, O2 sat 85% -Will check EKG -Will defer steroids due to neutropenia -Will give Lasix 40mg IV x1 -Will add scheduled Duonebs -Will give 2 U pRBC Impression: Patient has been on 5 L O2 via NC since admission; recently hypoxia 10/15 with O2 saturations in upper 70's. Associated with anemia. Decreased breath sounds on exam; no wheezing. No symptoms appreciated by patient, no tachypnea. History of tobacco abuse. CT revealed dominant opacity seen on recent CXR represents loculated pleural effusion in the superior major fissure. Small b/l pleural effusions, mild consolidative infiltrates in the right lower lung, and right upper abdominal ascites. Calcified gallstones. S/p thoracentesis 10/01/2017- pleural fluid negative for malignancy (2) Bacteremia ICD Codes: R78.81 - Bacteremia Status: Acute Plan: ID consulted, appreciate recommendations * E.coli ESBL sepsis, source is likely GI, questionable SBP * Continue Ertapenem 1000 mg IV q24h (10/02) x 6-8 weeks per ID History: Transferred to med/surg floor 10/03; previously transferred to ICU secondary to ESBL sepsis. Patient met sepsis criteria 09/29 due to tachycardic at 95-113 and hypotension 86/53 Lactic acid 1.4 09/29, Repeat lactic acid 1.5 s/p 500cc bolus of NS, MIVF 140mls/hr 09/29 * CT abd/pelvis w/o contrast done 09/30 revealed moderate size left pleural effusion, ascites, 5cm infrarenal abdominal aortic aneurysm and mesenteric stranding. * CTA 10/01 7.3 cm AAA, contained rupture, cirrhosis, splenomegaly, cholelithiasis, moderate ascites, no evident of protal vein thrombosis or Budd- Chiari syndrome, COPD with bibasilar airspace disease and parapneumonic effusions * 2-D echo - 60-65% EF * Left pleural effusion- thoracentesis with removal of 750 cc of dark yellow fluid. Fluid appeared transudative. * Ascites- paracentesis with removal of 1100 cc of yellow fluids. This appeared due to portal hypertension. * Possibility of aortoenteric fistula Cultures: Blood- Cultures 10/10 NGTD Staph hominis 10/06 (pansensitive) ESBL E Coli 09/29 (resistant, to Ampicillin, Unasyn, Cefazolin, Cefepime, Cefuroxime, Levofloxacin) Antibiotic history: Vancomycin (restarted 10/07-10/11) Vancomycin 1,250mg IV q12h (09/29-10/01) Zosyn 4.5 gm IV q6h (started 09/30-09/22) Azithromycin 250mg PO daily (10/01-10/04) (3) Pancytopenia ICD Codes: D61.818 - Other pancytopenia Plan: Hem/Onc consulted, appreciate recs -Neupogen as needed -Monitor CBC and transfuse as needed -Will give 2 U pRBC (Hgb 6.8 on ABG in association with hypoxia; will attempt to achieve Hgb >8 due to coexistent cardiac disease (aneurysm)) -Continue daily folate Impression: Pancytopenia; failure to thrive. Per Hem Onc, treated in / cleared but titers elevated during hospitalization. WBC down since admission, Hb stable, plts trending down since admission A/P CT and CTA - pelvic ascites, 7.3cm infrarenal AAA, calcified gallstones, moderate pleural effusions, cirrhosis, CTA S/P thoracentesis, paracentesis Transfusion history: 2 units of RBCS transfused 09/28, 1 unit of RBCs transfused 09/29, and 1 unit of RBCs transfused 09/30 1 unit of FFP transfused 09/30 1 unit of Leuk-redu pheresis plts transfused 10/01 prior to thoracentesis (4) AAA (abdominal aortic aneurysm) ICD Codes: I71.4 - Abdominal aortic aneurysm, without rupture Plan: CT abd/pelvis w/o contrast done 09/30 5cm infrarenal abdominal aortic aneurysm Aorta CTA 7.3 cm infrarenal AAA with laminated wall, contained rupture which may be chronic and possible associated aortic wall inflammation indicating aortitis Vascular surgery consulted, appreciate recs [facility] confirms that no intervention at this time No intervention for AAA until infection cleared Continue to follow at this time (5) GI bleed ICD Codes: K92.2 - Gastrointestinal hemorrhage, unspecified Status: Acute Plan: GI reconsulted for mesenteric stranding and ascites, appreciate recommendations -Protonix 40mg IV BID -Supportive care -Sign off; consult as needed Avoid NSAIDs and anticoagulation EGD in 2 months Colonoscopy in 2 years History: Hb of 6.1 upon admission,1 month hx of black tarry stools, chronic aspirin use 2 units of RBCS transfused 09/28, 1 unit of RBCs transfused 09/29, and 1 unit of RBCs transfused 09/30 Hb stable Hemoccult performed by RN in ED on 09/28- positive EGD/colonoscopy demonstrated hiatal hernia, gastric ulcer, erosive gastritis and colon polyp Duo/stomach biopsy- Stomach, reactive/chemical gastropathy with intestinal metaplasia. Colon, sigmoid, adenomatous polyp HCV quant, less than 15 IUs/ ml, less than 1.18 log IUs/mlAlpha-feto protein wnl Elevated ferritin levels due to underlying cirrhosis most likely AMSA, AMA negative A1AT 148 Hemochromatosis workup negative (6) Hematuria ICD Codes: R31.9 - Hematuria, unspecified Plan: -UA 09/30 moderate occult blood, unlikely traumatic, patient has condom catheter -PSA wnl 0.15 -Renal US 10/04 demonstrated small nonobstructing 3mm calyceal calculus in the mid left kidney. 1.4 cm cyst in the inferior pole of the right kidney. -Urology consulted, recs appreciated Urologic impression: gross hematuria (now resolved) of indeterminate etiology; abnormal coagulation profile and thrombocytopenia likely contributing to the hematuria * manage conservatively for now * office follow up after hospital discharge when overall medical condition improved for cystoscopic evaluation [phone] * will be available as needed during present hospitalization (7) Hepatitis C ICD Codes: B19.20 - Unspecified viral hepatitis C without hepatic coma Plan: Patient reports history of Hep C. Patient reports being treated in the s. LFTs wnl. alpha fetoprotein wnl HCV quant, less than 15 IUs/ml, less than 1.18 log IUs/ml (8) Abnormal chest x-ray ICD Codes: R93.8 - Abnormal findings on diagnostic imaging of other specified body structures Plan: Impression: Heavy smoker. Mass 2.51 x 3.86 found on CXR. Small free- flowing right pleural effusion at the base. CT revealed dominant opacity seen on recent CXR represents loculated pleural effusion in the superior major fissure. Small b/l pleural effusions, mild consolidative infiltrates in the right lower lung, and right upper abdominal ascites. Calcified gallstones. S/p thoracentesis 10/01/2017- pleural fluid negative for malignancy (9) RALF (acute kidney injury) ICD Codes: N17.9 - Acute kidney failure, unspecified Status: Resolved Plan: -Resolved -Continue to monitor Impression: RALF secondary to dehydration BUN 28 and Cr 0.53 upon admission (10) Sacral wound ICD Codes: S31.000A - Unspecified open wound of lower back and pelvis without penetration into retroperitoneum, initial encounter Plan: Unstageable sacral wound, 3cm x 6cm Wound care consulted, recommendations appreciated 1) Cleanse sacral wound with normal saline,pat dry. 2) Apply skin prep to gibran wound 3) Santyl josé thick to wound bed 4) Cover with Maxorb 2 cut to fit. 5) Cover with dry dressing (boarder gauze) 6) Change dressing Daily (11) Nutrition, metabolism, and development symptoms ICD Codes: R63.8 - Other symptoms and signs concerning food and fluid intake Plan: Fluids: 50mls/hr NS due to poor appetite Diet: Regular Basic Electrolytes: monitor and replace as needed Other: Case management consulted GI ppx: Protonix 40mg IV q12h DVT ppx: SCDs Problem Qualifiers (1) GI bleed: Qualified Codes: K92.2 - Gastrointestinal hemorrhage, unspecified (2) Sacral wound: Qualified Codes: S31.000D - Unspecified open wound of lower back and pelvis without penetration into retroperitoneum, subsequent encounter Keyon Jones MD, R3 Oct 15, 2017 12:12
[2017-10-15] MEDS ORDERED: SODIUM CHLOR 0.9% 250 ML INJ 250 ML IV ONE (12:45)
[2017-10-15] MEDS ORDERED: FUROSEMIDE 40 MG/4 ML VIAL IV PUSH ONE (13:30)
--- NOTE | 2017-10-15 13:40 | EKG ---
Date Performed: 10/15/2017 Time Performed: 11:21:16 PTAGE: 66 years EKG: SINUS TACHYCARDIA WITH SHORT SD INTERVAL WITH OCCASIONAL SUPRAVENTRICULAR PREMATURE COMPLEX ES NONSPECIFIC T-WAVE ABNORMALITY ABNORMAL RHYTHM ECG PREVIOUS TRACING : 09/29/2017 04.02 DOCTOR: Gab Chicas Interpretating Date/Time 10/15/2017 13:39:22
[2017-10-15] MEDS: COLLAGENASE OINT 30 GM TUBE TOPICAL SCH (14:54)
[2017-10-15] MEDS: SODIUM CHLOR 0.9% 1000 ML INJ 1,000 ML IV SCH (14:58)
[2017-10-15] MEDS: FILGRASTIM 300 MCG/ML VIAL SQ SCH (14:58)
[2017-10-15] MEDS: ERTAPENEM INJ 1,000 MG in SODIUM CHLORIDE 0.9% INJ 100 ML IV SCH (14:58)
[2017-10-15 15:05] LABS: AUTOMATED NEUTROPHIL # 6.7 TH/MM3 (1.8-7.7); BASOPHIL % 0.3 % (0.0-2.0); EOSINOPHIL % 0.2 % (0.0-4.0); HEMATOCRIT 21.3 % (39.0-51.0); LYMPHOCYTE # 1.1 TH/MM3 (1.0-4.8); MEAN CELL VOLUME 95.7 FL (80.0-100.0); MEAN CORPUSCULAR HEMOGLOBIN 31.5 PG (27.0-34.0); MEAN CORPUSCULAR HGB CONC 32.9 % (32.0-36.0); MEAN PLATELET VOLUME 7.8 FL (7.0-11.0); MONO % 3.1 % (0.0-8.0); MONOCYTE # 0.2 TH/MM3 (0-0.9); NEUT % 82.4 % (16.0-70.0); PLATELET COUNT 39 TH/MM3 (150-450); RED BLOOD COUNT 2.23 MIL/MM3 (4.50-5.90); RED CELL DISTRIBUTION WIDTH 19.5 % (11.6-17.2); WHITE BLOOD COUNT 8.1 TH/MM3 (4.0-11.0)
--- NOTE | 2017-10-15 17:41 | HHI.PR ---
Addendum to Inpatient Note Additional Information I will be OOT thru 10/22/2017 Lino Love and Jadiel willn cover for me for that period of time Marleni Giraldo MD Oct 15, 2017 17:41
[2017-10-15] MEDS: RESP: ALBUTEROL 2.5 MG/IPRATROPIUM 0.5 MG NEB (SCH) NEB (19:49)
[2017-10-16] VITALS (11 sets, daily range): BP systolic 86–117; BP diastolic 50–60; PULSE 75–110; RESP 16–20; TEMP 95.5–97.9; O2SAT 88–100
[2017-10-16] MEDS: PANTOPRAZOLE SODIUM 40 MG VIAL IV PUSH SCH ×2 (00:19→14:53)
[2017-10-16] MEDS: SODIUM CHLORIDE 0.9% FLUSH 10 ML FLUSH IV FLUSH SCH ×3 (00:19→21:00)
[2017-10-16] MEDS: RESP: ALBUTEROL 2.5 MG/IPRATROPIUM 0.5 MG NEB (SCH) NEB ×3 (08:11→19:28)
[2017-10-16] MEDS: FOLIC ACID 1 MG TAB PO SCH (08:31)
[2017-10-16] MEDS: COLLAGENASE OINT 30 GM TUBE TOPICAL SCH (08:32)
[2017-10-16 09:38] LABS: AUTOMATED NEUTROPHIL # 6.2 TH/MM3 (1.8-7.7); BASOPHIL % 0.6 % (0.0-2.0); EOSINOPHIL % 0.2 % (0.0-4.0); HEMATOCRIT 26.3 % (39.0-51.0); HEMOGLOBIN 8.9 GM/DL (13.0-17.0); LYMPH % 11.8 % (9.0-44.0); LYMPHOCYTE # 0.9 TH/MM3 (1.0-4.8); MEAN CELL VOLUME 93.3 FL (80.0-100.0); MEAN CORPUSCULAR HEMOGLOBIN 31.5 PG (27.0-34.0); MEAN CORPUSCULAR HGB CONC 33.8 % (32.0-36.0); MEAN PLATELET VOLUME 8.1 FL (7.0-11.0); MONO % 3.2 % (0.0-8.0); MONOCYTE # 0.2 TH/MM3 (0-0.9); NEUT % 84.2 % (16.0-70.0); PLATELET COUNT 40 TH/MM3 (150-450); RED BLOOD COUNT 2.81 MIL/MM3 (4.50-5.90); RED CELL DISTRIBUTION WIDTH 17.4 % (11.6-17.2); WHITE BLOOD COUNT 7.3 TH/MM3 (4.0-11.0)
--- NOTE | 2017-10-16 09:39 | HHI.FPPN ---
Subjective Remarks Patient seen and examined this morning. Denies any complaints today. Yesterday, patient had desaturations and was given blood transfusion and placed on a simple mask. Denies any chest pain or shortness of breath this morning. Feels that his breathing is stable. Endorses decreased appetite, is trying to drink the ensure shakes. Denies any depression symptoms. Denies any fever/chills, nausea/vomiting, abdominal pain, leg pain. Objective Vitals Vital Signs Date Time Temp Pulse Resp B/P (MAP) Pulse Ox O2 Delivery O2 Flow Rate FiO2 10/16/17 08:37 Simple Mask 10.00 10/16/17 08:21 92 Simple Mask 10.00 10/16/17 04:00 108 10/16/17 04:00 97.2 101 20 101/56 (71) 92 10/16/17 04:00 97.7 101 20 101/56 92 10/16/17 01:07 97.0 98 20 91/53 92 10/16/17 00:52 97.0 101 20 86/53 91 10/16/17 00:28 97.0 110 20 100/50 93 10/16/17 00:00 101 10/16/17 00:00 97.0 110 20 100/50 (67) 93 10/15/17 20:00 Nasal Cannula 7.00 10/15/17 20:00 107 10/15/17 20:00 96.5 111 20 106/71 (83) 10/15/17 19:49 92 Nasal Cannula 6.00 10/15/17 17:08 96.8 80 16 111/63 10/15/17 16:00 97.9 106 18 108/73 (85) 92 10/15/17 12:00 96.6 107 18 109/59 (76) 92 10/15/17 10:25 88 7.00 10/15/17 09:56 79 5.00 I/O 10/15/17 10/15/17 10/15/17 10/16/17 10/16/17 10/16/17 07:00 15:00 23:00 07:00 15:00 23:00 Intake Total 620 ml 930 ml Output Total 650 ml 1650 ml 1000 ml Balance -650 ml -1030 ml -70 ml Intake Oral 120 ml 120 ml IV Total 100 ml Packed Cells 400 ml 400 ml Blood Product IV Normal Saline Flush 410 ml Output Urine Total 650 ml 1650 ml 1000 ml # Bowel Movements 1 0 0 Result Diagram: 10/15/17 1350 10/15/17 0855 Objective Remarks CONSTITUTIONAL/GEN: Cachectic male, lying in bed ENT: Mouth and pharynx show moist MM, upper teeth missing, many lower teeth absent, those remaining are in poor repair LUNGS: Decreased breath sounds bilaterally; normal rate. Patient on face mask CARDIOVASCULAR: Tachycardia. No LE edema GI/ABD: soft, normal BS; no pain to palpation SKIN: pale, lichenification both ankles. sacrum not visualized today PSYCH/MENTAL STATUS: Alert and oriented x 3. No appreciated CN defects. No peripheral motor/sensory defects : catheter in place; reddish urine in schaefer bag A/P Assessment and Plan 66 yr old M Hep C, hx of heavy smoking (2ppd for 61 yrs), and chronic aspirin use presented to the ED with anemia and black tarry stools secondary to suspected GI bleed. Patient transferred to ICU 09/30 for ESBL E.coli sepsis. Patient hemodynamically stable for transfer to med/surg 10/03. Discharge Planning Case Management to assist with SNF placement Pending infection workup and hematology clearance Problem List: (1) Hypoxia ICD Codes: R09.02 - Hypoxemia Status: Acute Plan: CXR (10/15): no change; small to moderate left effusion (no interval change from 10/12 (pulmonary vascular congestion, L sided effusion)) ABG: pH 7.42, pCO2 57, pO2 55, O2 sat 85% s/p Lasix 40mg IV x1 s/p transfusion Echo on 10/01 shows EF of 60-65%, normal LV systolic function -Continue duonebs -O2 PRN -CTA today to rule out PE, as pt not on chemoprophylaxis due to thrombocytopenia Impression: Patient has been on 5 L O2 via NC since admission; recently hypoxia 10/15 with O2 saturations in upper 70's. Associated with anemia. Decreased breath sounds on exam; no wheezing. No symptoms appreciated by patient, no tachypnea. History of tobacco abuse. CT revealed dominant opacity seen on recent CXR represents loculated pleural effusion in the superior major fissure. Small b/l pleural effusions, mild consolidative infiltrates in the right lower lung, and right upper abdominal ascites. Calcified gallstones. S/p thoracentesis 10/01/2017- pleural fluid negative for malignancy (2) Bacteremia ICD Codes: R78.81 - Bacteremia Status: Acute Plan: ID consulted, appreciate recommendations * E.coli ESBL sepsis, source is likely GI, questionable SBP * Continue Ertapenem 1000 mg IV q24h (10/02) x 6-8 weeks per ID History: Transferred to med/surg floor 10/03; previously transferred to ICU secondary to ESBL sepsis. Patient met sepsis criteria 09/29 due to tachycardic at 95-113 and hypotension 86/53 Lactic acid 1.4 09/29, Repeat lactic acid 1.5 s/p 500cc bolus of NS, MIVF 140mls/hr 09/29 * CT abd/pelvis w/o contrast done 09/30 revealed moderate size left pleural effusion, ascites, 5cm infrarenal abdominal aortic aneurysm and mesenteric stranding. * CTA 10/01 7.3 cm AAA, contained rupture, cirrhosis, splenomegaly, cholelithiasis, moderate ascites, no evident of protal vein thrombosis or Budd- Chiari syndrome, COPD with bibasilar airspace disease and parapneumonic effusions * 2-D echo - 60-65% EF * Left pleural effusion- thoracentesis with removal of 750 cc of dark yellow fluid. Fluid appeared transudative. * Ascites- paracentesis with removal of 1100 cc of yellow fluids. This appeared due to portal hypertension. * Possibility of aortoenteric fistula Cultures: Blood- Cultures 10/10 NGTD Staph hominis 10/06 (pansensitive) ESBL E Coli 09/29 (resistant, to Ampicillin, Unasyn, Cefazolin, Cefepime, Cefuroxime, Levofloxacin) Antibiotic history: Vancomycin (restarted 10/07-10/11) Vancomycin 1,250mg IV q12h (09/29-10/01) Zosyn 4.5 gm IV q6h (started 09/30-09/22) Azithromycin 250mg PO daily (10/01-10/04) (3) Pancytopenia ICD Codes: D61.818 - Other pancytopenia Plan: Hem/Onc consulted, appreciate recs -Neupogen daily -Monitor CBC and transfuse as needed -Continue daily folate Impression: Pancytopenia; failure to thrive. Per Hem Onc, treated in / cleared but titers elevated during hospitalization. WBC down since admission, Hb stable, plts trending down since admission A/P CT and CTA - pelvic ascites, 7.3cm infrarenal AAA, calcified gallstones, moderate pleural effusions, cirrhosis, CTA S/P thoracentesis, paracentesis Transfusion history: 2 units of RBCS transfused 09/28, 1 unit of RBCs transfused 09/29, and 1 unit of RBCs transfused 09/30 1 unit of FFP transfused 09/30 1 unit of Leuk-redu pheresis plts transfused 10/01 prior to thoracentesis 2 units of pRBC given on 10/05 (4) AAA (abdominal aortic aneurysm) ICD Codes: I71.4 - Abdominal aortic aneurysm, without rupture Plan: CT abd/pelvis w/o contrast done 09/30 5cm infrarenal abdominal aortic aneurysm Aorta CTA 7.3 cm infrarenal AAA with laminated wall, contained rupture which may be chronic and possible associated aortic wall inflammation indicating aortitis Vascular surgery consulted, appreciate recs [facility] confirms that no intervention at this time No intervention for AAA until infection cleared -Continue to follow at this time -Add metoprolol tartrate 12.5mg BID for tachycardia (5) GI bleed ICD Codes: K92.2 - Gastrointestinal hemorrhage, unspecified Status: Acute Plan: GI reconsulted for mesenteric stranding and ascites, appreciate recommendations -Protonix 40mg IV BID -Supportive care -Sign off; consult as needed Avoid NSAIDs and anticoagulation EGD in 2 months Colonoscopy in 2 years History: Hb of 6.1 upon admission,1 month hx of black tarry stools, chronic aspirin use 2 units of RBCS transfused 09/28, 1 unit of RBCs transfused 09/29, and 1 unit of RBCs transfused 09/30 Hb stable Hemoccult performed by RN in ED on 09/28- positive EGD/colonoscopy demonstrated hiatal hernia, gastric ulcer, erosive gastritis and colon polyp Duo/stomach biopsy- Stomach, reactive/chemical gastropathy with intestinal metaplasia. Colon, sigmoid, adenomatous polyp HCV quant, less than 15 IUs/ ml, less than 1.18 log IUs/mlAlpha-feto protein wnl Elevated ferritin levels due to underlying cirrhosis most likely AMSA, AMA negative A1AT 148 Hemochromatosis workup negative (6) Hematuria ICD Codes: R31.9 - Hematuria, unspecified Plan: -UA 09/30 moderate occult blood, unlikely traumatic, patient has condom catheter -PSA wnl 0.15 -Renal US 10/04 demonstrated small nonobstructing 3mm calyceal calculus in the mid left kidney. 1.4 cm cyst in the inferior pole of the right kidney. -Urology consulted, recs appreciated Urologic impression: gross hematuria (now resolved) of indeterminate etiology; abnormal coagulation profile and thrombocytopenia likely contributing to the hematuria * manage conservatively for now * office follow up after hospital discharge when overall medical condition improved for cystoscopic evaluation [phone] * will be available as needed during present hospitalization (7) Hepatitis C ICD Codes: B19.20 - Unspecified viral hepatitis C without hepatic coma Plan: Patient reports history of Hep C. Patient reports being treated in the s. LFTs wnl. alpha fetoprotein wnl HCV quant, less than 15 IUs/ml, less than 1.18 log IUs/ml (8) Abnormal chest x-ray ICD Codes: R93.8 - Abnormal findings on diagnostic imaging of other specified body structures Plan: Impression: Heavy smoker. Mass 2.51 x 3.86 found on CXR. Small free- flowing right pleural effusion at the base. CT revealed dominant opacity seen on recent CXR represents loculated pleural effusion in the superior major fissure. Small b/l pleural effusions, mild consolidative infiltrates in the right lower lung, and right upper abdominal ascites. Calcified gallstones. S/p thoracentesis 10/01/2017- pleural fluid negative for malignancy (9) RALF (acute kidney injury) ICD Codes: N17.9 - Acute kidney failure, unspecified Status: Resolved Plan: -Resolved -Continue to monitor Impression: RALF secondary to dehydration BUN 28 and Cr 0.53 upon admission (10) Sacral wound ICD Codes: S31.000A - Unspecified open wound of lower back and pelvis without penetration into retroperitoneum, initial encounter Plan: Unstageable sacral wound, 3cm x 6cm Wound care consulted, recommendations appreciated 1) Cleanse sacral wound with normal saline,pat dry. 2) Apply skin prep to gibran wound 3) Santyl josé thick to wound bed 4) Cover with Maxorb 2 cut to fit. 5) Cover with dry dressing (boarder gauze) 6) Change dressing Daily (11) Nutrition, metabolism, and development symptoms ICD Codes: R63.8 - Other symptoms and signs concerning food and fluid intake Plan: Fluids: 50mls/hr NS due to poor appetite Diet: Regular Basic Electrolytes: monitor and replace as needed Other: Case management consulted GI ppx: Protonix 40mg IV q12h DVT ppx: SCDs Problem Qualifiers (1) GI bleed: Qualified Codes: K92.2 - Gastrointestinal hemorrhage, unspecified (2) Sacral wound: Qualified Codes: S31.000D - Unspecified open wound of lower back and pelvis without penetration into retroperitoneum, subsequent encounter John Gotti MD, R2 Oct 16, 2017 09:39
[2017-10-16] MEDS ORDERED: METOPROLOL TARTRATE 25 MG TAB PO ONE (09:45)
[2017-10-16 09:50] LABS: BICARBONATE 37.6 MEQ/L (21.0-32.0); CALCIUM 7.9 MG/DL (8.5-10.1); CREATININE 0.28 MG/DL (0.60-1.30)
[2017-10-16] MEDS ORDERED: PILL SPLITTER OTHER PRN (10:00)
[2017-10-16] MEDS: SODIUM CHLOR 0.9% 1000 ML INJ 1,000 ML IV SCH ×2 (10:10→22:57)
[2017-10-16 11:06] LABS: BANDS 7 % (0-6); LYMPHOCYTES 6 % (9-44); METAMYELOCYTES 1 % (0-1); MONOCYTES 4 % (0-8); NEUTROPHIL # MANUAL DIFF 6.6 TH/MM3 (1.8-7.7); POLYS (SEG NEUTROPHILS) 82 % (16-70); TOXIC GRANULATION 1+ (NORMAL); TOXIC VACUOLATION PRESENT (NONE SEEN)
[2017-10-16] MEDS ORDERED: IOHEXOL 350 MG/ML 10 ML VIAL (for RAD DIAG) IVCONTRAST ONE (14:33)
--- NOTE | 2017-10-16 14:45 | RADRPT ---
EXAM DATE/TIME: 10/16/2017 14:10 [facility] COMPARISON: No previous studies available for comparison. INDICATIONS : Dyspnea IV CONTRAST: 72 cc Omnipaque 350 (iohexol) IV RADIATION DOSE: 11.76 CTDIvol (mGy) MEDICAL HISTORY : Hepatitis C. Gastrointestinal bleed. SURGICAL HISTORY : None. ENCOUNTER: Initial ACUITY: 2 days PAIN SCALE: 6/10 LOCATION: mid back TECHNIQUE: Volumetric scanning of the chest was performed using a pulmonary embolism protocol MIP images were re constructed. Using automated exposure control and adjustment of the mA and/or kV according to patien t size, radiation dose was kept as low as reasonably achievable to obtain optimal diagnostic quality images. DICOM format image data is available electronically for review and comparison. Follow-up recommendations for detected pulmonary nodules are based at a minimum on nodule size and pa tient risk factors according to Fleischner Society Guidelines. FINDINGS: PULMONARY ARTERIES: No filling defects are seen in the pulmonary arteries through the segmental level. LUNGS: There is peripheral consolidation and atelectasis in both lower lungs, left greater than right. PLEURAE: Moderate to large left-sided pleural effusion. Small right sided pleural effusion MEDIASTINUM: There is good visualization of the great vessels of the middle mediastinum. No evidence of mediastin al or hilar adenopathy/mass. MUSCULOSKELETAL: Within normal limits for patient age. MISCELLANEOUS: There is ascites in the upper abdomen. The liver looks cirrhotic. The spleen is enlarged at 14.5 cm. CONCLUSION: 1. No evidence of pulmonary embolism 2. Moderate to large left-sided pleural effusion with compressive atelectasis of the left lower lung 3. Small right-sided pleural effusion with atelectasis in the right lung base. 4. Ascites in the upper abdomen. Justo Florian MD on October 16, 2017 at 14:37 Board Certified Radiologist. This report was verified electronically.
[2017-10-16] MEDS: ERTAPENEM INJ 1,000 MG in SODIUM CHLORIDE 0.9% INJ 100 ML IV SCH (14:52)
[2017-10-16] MEDS: MIRTAZAPINE 15 MG TAB PO SCH (21:02)
[2017-10-16] MEDS: METOPROLOL TARTRATE 25 MG TAB PO SCH (21:02)
[2017-10-17] VITALS (12 sets, daily range): BP systolic 103–124; BP diastolic 59–74; PULSE 85–110; RESP 17–22; TEMP 95.8–96.9; O2SAT 90–100
[2017-10-17] MEDS: PANTOPRAZOLE SODIUM 40 MG VIAL IV PUSH SCH ×2 (02:54→16:11)
[2017-10-17] MEDS: RESP: ALBUTEROL 2.5 MG/IPRATROPIUM 0.5 MG NEB (SCH) NEB ×3 (08:06→19:03)
[2017-10-17 08:10] LABS: AUTOMATED NEUTROPHIL # 2.5 TH/MM3 (1.8-7.7); BASOPHIL % 0.6 % (0.0-2.0); EOSINOPHIL % 0.4 % (0.0-4.0); HEMATOCRIT 24.5 % (39.0-51.0); HEMOGLOBIN 8.2 GM/DL (13.0-17.0); LYMPH % 15.7 % (9.0-44.0); LYMPHOCYTE # 0.5 TH/MM3 (1.0-4.8); MEAN CELL VOLUME 93.9 FL (80.0-100.0); MEAN CORPUSCULAR HEMOGLOBIN 31.5 PG (27.0-34.0); MEAN CORPUSCULAR HGB CONC 33.6 % (32.0-36.0); MEAN PLATELET VOLUME 9.1 FL (7.0-11.0); MONO % 5.6 % (0.0-8.0); MONOCYTE # 0.2 TH/MM3 (0-0.9); NEUT % 77.7 % (16.0-70.0); PLATELET COUNT 35 TH/MM3 (150-450); RED BLOOD COUNT 2.61 MIL/MM3 (4.50-5.90); RED CELL DISTRIBUTION WIDTH 17.8 % (11.6-17.2); WHITE BLOOD COUNT 3.2 TH/MM3 (4.0-11.0)
[2017-10-17 08:49] LABS: BICARBONATE 37.3 MEQ/L (21.0-32.0); CALCIUM 8.1 MG/DL (8.5-10.1); CREATININE 0.16 MG/DL (0.60-1.30)
[2017-10-17] MEDS: SODIUM CHLORIDE 0.9% FLUSH 10 ML FLUSH IV FLUSH SCH ×2 (09:00→20:30)
[2017-10-17 09:25] LABS: TOXIC GRANULATION 1+ (NORMAL)
[2017-10-17] MEDS ORDERED: CALCIUM CARBONATE 1.25 GM (CA 500 MG) TAB PO ONE (10:30)
--- NOTE | 2017-10-17 10:47 | HHI.FPPN ---
Subjective Remarks Patient seen and examined this morning. Reviewed caloric intake logs with him. Discussed the need to eat. He said he will attempt to consume all the his Ensures today. No nausea, vomiting, fever, chills, abdominal pain, chest pain, shortness of breath. Although he is on oxygen he states he is breathing well. Believes his diarrhea is improving. Objective Vitals Vital Signs Date Time Temp Pulse Resp B/P (MAP) Pulse Ox O2 Delivery O2 Flow Rate FiO2 10/17/17 08:11 90 Simple Mask 10.00 10/17/17 08:00 96.9 92 21 103/59 (74) 92 10/17/17 04:00 96.0 90 17 124/59 (80) 98 10/17/17 00:00 96.1 85 17 120/61 (80) 100 10/16/17 20:00 75 10/16/17 20:00 95.5 93 16 104/60 (75) 98 10/16/17 20:00 97 Simple Mask 11.00 10/16/17 19:32 93 Simple Mask 10.00 10/16/17 17:08 100 Simple Mask 11.00 10/16/17 16:00 96.6 94 18 117/56 (76) 100 10/16/17 12:00 97.9 102 20 111/55 (73) 88 I/O 10/16/17 10/16/17 10/16/17 10/17/17 10/17/17 10/17/17 07:00 15:00 23:00 07:00 15:00 23:00 Intake Total 930 ml 340 ml 0 ml Output Total 1000 ml 550 ml 750 ml Balance -70 ml -210 ml -750 ml Intake Oral 120 ml 240 ml 0 ml IV Total 100 ml Packed Cells 400 ml Blood Product IV Normal Saline Flush 410 ml Output Urine Total 1000 ml 550 ml 750 ml # Bowel Movements 0 1 Result Diagram: 10/17/1772810/17/17728 Objective Remarks CONSTITUTIONAL/GEN: Cachectic male, lying in bed ENT: Mouth and pharynx show moist MM, upper teeth missing, many lower teeth absent, those remaining are in poor repair LUNGS: Decreased breath sounds bilaterally; normal rate. Patient on face mask CARDIOVASCULAR: Tachycardia. No LE edema GI/ABD: soft, normal BS; no pain to palpation SKIN: pale, lichenification both ankles. sacrum not visualized today PSYCH/MENTAL STATUS: Alert and oriented x 3. No appreciated CN defects. No peripheral motor/sensory defects : catheter in place; Dark urine in schaefer bag A/P Assessment and Plan 66 yr old M Hep C, hx of heavy smoking (2ppd for 61 yrs), and chronic aspirin use presented to the ED with anemia and black tarry stools secondary to suspected GI bleed. Patient transferred to ICU 09/30 for ESBL E.coli sepsis. Patient hemodynamically stable for transfer to med/surg 10/03. Discharge Planning Case Management to assist with SNF placement Pending infection workup and hematology clearance Problem List: (1) Hypoxia ICD Codes: R09.02 - Hypoxemia Status: Acute Plan: CXR (10/15): no change; small to moderate left effusion (no interval change from 10/12 (pulmonary vascular congestion, L sided effusion)) ABG: pH 7.42, pCO2 57, pO2 55, O2 sat 85% s/p Lasix 40mg IV x1 s/p transfusion Echo on 10/01 shows EF of 60-65%, normal LV systolic function -Continue duonebs -O2 PRN -CTA without evidence of PE, left-sided pleural effusion, ascites noted -Follow up ABG -Pulmonology consulted, follow-up recommendations Impression: Patient has been on 5 L O2 via NC since admission; recently hypoxia 10/15 with O2 saturations in upper 70's. Associated with anemia. Decreased breath sounds on exam; no wheezing. No symptoms appreciated by patient, no tachypnea. History of tobacco abuse. CT revealed dominant opacity seen on recent CXR represents loculated pleural effusion in the superior major fissure. Small b/l pleural effusions, mild consolidative infiltrates in the right lower lung, and right upper abdominal ascites. Calcified gallstones. S/p thoracentesis 10/01/2017- pleural fluid negative for malignancy (2) Bacteremia ICD Codes: R78.81 - Bacteremia Status: Acute Plan: ID consulted, appreciate recommendations * E.coli ESBL sepsis, source is likely GI, questionable SBP * Continue Ertapenem 1000 mg IV q24h (10/02) x 6-8 weeks per ID History: Transferred to med/surg floor 10/03; previously transferred to ICU secondary to ESBL sepsis. Patient met sepsis criteria 09/29 due to tachycardic at 95-113 and hypotension 86/53 Lactic acid 1.4 09/29, Repeat lactic acid 1.5 s/p 500cc bolus of NS, MIVF 140mls/hr 09/29 * CT abd/pelvis w/o contrast done 09/30 revealed moderate size left pleural effusion, ascites, 5cm infrarenal abdominal aortic aneurysm and mesenteric stranding. * CTA 10/01 7.3 cm AAA, contained rupture, cirrhosis, splenomegaly, cholelithiasis, moderate ascites, no evident of protal vein thrombosis or Budd- Chiari syndrome, COPD with bibasilar airspace disease and parapneumonic effusions * 2-D echo - 60-65% EF * Left pleural effusion- thoracentesis with removal of 750 cc of dark yellow fluid. Fluid appeared transudative. * Ascites- paracentesis with removal of 1100 cc of yellow fluids. This appeared due to portal hypertension. * Possibility of aortoenteric fistula Cultures: Blood- Cultures 10/10 NGTD Staph hominis 10/06 (pansensitive) ESBL E Coli 09/29 (resistant, to Ampicillin, Unasyn, Cefazolin, Cefepime, Cefuroxime, Levofloxacin) Antibiotic history: Vancomycin (restarted 10/07-10/11) Vancomycin 1,250mg IV q12h (09/29-10/01) Zosyn 4.5 gm IV q6h (started 09/30-09/22) Azithromycin 250mg PO daily (10/01-10/04) (3) Pancytopenia ICD Codes: D61.818 - Other pancytopenia Plan: Hem/Onc consulted, appreciate recs -Neupogen daily -Monitor CBC and transfuse as needed -Continue daily folate Impression: Pancytopenia; failure to thrive. Per Hem Onc, treated in / cleared but titers elevated during hospitalization. WBC down since admission, Hb stable, plts trending down since admission A/P CT and CTA - pelvic ascites, 7.3cm infrarenal AAA, calcified gallstones, moderate pleural effusions, cirrhosis, CTA S/P thoracentesis, paracentesis Transfusion history: 2 units of RBCS transfused 09/28, 1 unit of RBCs transfused 09/29, and 1 unit of RBCs transfused 09/30 1 unit of FFP transfused 09/30 1 unit of Leuk-redu pheresis plts transfused 10/01 prior to thoracentesis 2 units of pRBC given on 10/05 (4) AAA (abdominal aortic aneurysm) ICD Codes: I71.4 - Abdominal aortic aneurysm, without rupture Plan: CT abd/pelvis w/o contrast done 09/30 5cm infrarenal abdominal aortic aneurysm Aorta CTA 7.3 cm infrarenal AAA with laminated wall, contained rupture which may be chronic and possible associated aortic wall inflammation indicating aortitis Vascular surgery consulted, appreciate recs [facility] confirms that no intervention at this time No intervention for AAA until infection cleared -Continue to follow at this time -Add metoprolol tartrate 12.5mg BID for tachycardia (5) GI bleed ICD Codes: K92.2 - Gastrointestinal hemorrhage, unspecified Status: Acute Plan: GI reconsulted for mesenteric stranding and ascites, appreciate recommendations -Protonix 40mg IV BID -Supportive care -Sign off; consult as needed Avoid NSAIDs and anticoagulation EGD in 2 months Colonoscopy in 2 years History: Hb of 6.1 upon admission,1 month hx of black tarry stools, chronic aspirin use 2 units of RBCS transfused 09/28, 1 unit of RBCs transfused 09/29, and 1 unit of RBCs transfused 09/30 Hb stable Hemoccult performed by RN in ED on 09/28- positive EGD/colonoscopy demonstrated hiatal hernia, gastric ulcer, erosive gastritis and colon polyp Duo/stomach biopsy- Stomach, reactive/chemical gastropathy with intestinal metaplasia. Colon, sigmoid, adenomatous polyp HCV quant, less than 15 IUs/ ml, less than 1.18 log IUs/mlAlpha-feto protein wnl Elevated ferritin levels due to underlying cirrhosis most likely AMSA, AMA negative A1AT 148 Hemochromatosis workup negative (6) Hematuria ICD Codes: R31.9 - Hematuria, unspecified Plan: -UA 09/30 moderate occult blood, unlikely traumatic, patient has condom catheter -PSA wnl 0.15 -Renal US 10/04 demonstrated small nonobstructing 3mm calyceal calculus in the mid left kidney. 1.4 cm cyst in the inferior pole of the right kidney. -Urology consulted, recs appreciated Urologic impression: gross hematuria (now resolved) of indeterminate etiology; abnormal coagulation profile and thrombocytopenia likely contributing to the hematuria * manage conservatively for now * office follow up after hospital discharge when overall medical condition improved for cystoscopic evaluation [phone] * will be available as needed during present hospitalization (7) Hepatitis C ICD Codes: B19.20 - Unspecified viral hepatitis C without hepatic coma Plan: Patient reports history of Hep C. Patient reports being treated in the 's. LFTs wnl. alpha fetoprotein wnl HCV quant, less than 15 IUs/ml, less than 1.18 log IUs/ml (8) Abnormal chest x-ray ICD Codes: R93.8 - Abnormal findings on diagnostic imaging of other specified body structures Plan: Impression: Heavy smoker. Mass 2.51 x 3.86 found on CXR. Small free- flowing right pleural effusion at the base. CT revealed dominant opacity seen on recent CXR represents loculated pleural effusion in the superior major fissure. Small b/l pleural effusions, mild consolidative infiltrates in the right lower lung, and right upper abdominal ascites. Calcified gallstones. S/p thoracentesis 10/01/2017- pleural fluid negative for malignancy (9) RALF (acute kidney injury) ICD Codes: N17.9 - Acute kidney failure, unspecified Status: Resolved Plan: -Resolved -Continue to monitor Impression: RALF secondary to dehydration BUN 28 and Cr 0.53 upon admission (10) Sacral wound ICD Codes: S31.000A - Unspecified open wound of lower back and pelvis without penetration into retroperitoneum, initial encounter Plan: Unstageable sacral wound, 3cm x 6cm Wound care consulted, recommendations appreciated 1) Cleanse sacral wound with normal saline,pat dry. 2) Apply skin prep to gibran wound 3) Santyl josé thick to wound bed 4) Cover with Maxorb 2 cut to fit. 5) Cover with dry dressing (boarder gauze) 6) Change dressing Daily (11) Nutrition, metabolism, and development symptoms ICD Codes: R63.8 - Other symptoms and signs concerning food and fluid intake Plan: Fluids: 50mls/hr NS due to poor appetite Diet: Regular Basic Electrolytes: monitor and replace as needed Other: Case management consulted GI ppx: Protonix 40mg IV q12h DVT ppx: SCDs Problem Qualifiers (1) GI bleed: Qualified Codes: K92.2 - Gastrointestinal hemorrhage, unspecified (2) Sacral wound: Qualified Codes: S31.000D - Unspecified open wound of lower back and pelvis without penetration into retroperitoneum, subsequent encounter Edilson Shoemaker MD R1 Oct 17, 2017 10:46
[2017-10-17] MEDS ORDERED: POTASSIUM CHLORIDE 10 MEQ CAP PO ONE (11:00)
[2017-10-17] MEDS: METOPROLOL TARTRATE 25 MG TAB PO SCH ×2 (12:53→20:29)
[2017-10-17] MEDS: FOLIC ACID 1 MG TAB PO SCH (12:53)
[2017-10-17] MEDS: COLLAGENASE OINT 30 GM TUBE TOPICAL SCH (12:54)
[2017-10-17] MEDS: SODIUM CHLOR 0.9% 1000 ML INJ 1,000 ML IV SCH ×2 (12:54→18:01)
[2017-10-17] MEDS ORDERED: SODIUM CHLOR 0.9% 250 ML INJ 250 ML IV ONE (13:45)
--- NOTE | 2017-10-17 15:08 | PD.CONS ---
Consult Service Palliative Care Consult Requested By Dr. Gotti . Primary Care Physician No Primary Care Physician Reason for Consultation a. To assist with evaluation and management of symptoms including: Weakness , dyspnea, decreased appetite b. To assist medical decision maker(s) with: better understanding of current medical conditions; weighing benefits/burdens of medical treatment options; making medical treatment decisions. HPI History of Present Illness This is a 66-year-old male with a previous history of hepatitis C, heavy tobaccoism, chronic aspirin use who lives between [place] and [place] who presented to the emergency department 09/28/17 with a complaint of new onset weakness. He was staying in the [facility] fell and got up to answer the door. There was no one at the door and as he was walking back to the bed he became weak and felt was knees but was unable to get up off the floor. He is not sure how long he laid on the floor but believes it was over a day prior to assistance arriving. Emergency medical services was summoned and he was transported to the hospital where he was found to have a hemoglobin of 6.1. He noted a 1 month history of black tarry stools and diarrhea. He states he had been taking 2-3 baby aspirin a day for the last few years, because he liked the taste of it. He also took Advil routinely but was unable to quantify beyond that. His appetite had been significantly decreased and it had been 2 weeks since his last actual meal. In the interim he had been drinking water and soda. He stated that his normal weight was around 200 pounds but felt he had lost weight. His actual weight the morning after admission was 120.5 pounds. ED course: * Vital signs: BP 103/55, pulse 83, respiratory rate 18, oxygen saturation 95% on room air, temperature 97.4. * Laboratory: WBC 5.1, Hgb 6.1, HCT 18.3, PLT 91, sodium 142, potassium 2.9, BUN 28, creatinine 0.53, normal transaminase, CK 109, troponin I less than 0.02. Hemoccult was positive. * Radiology: CT chest: The dominant opacity seen on recent chest x-ray represents loculated pleural effusion in the superior major fissure with small bilateral pleural effusions, mild consolidative infiltrates in the right lower lung and right upper abdominal ascites. On 09/29 the patient became tachycardic and hypotensive, meeting sepsis criteria and received a normal saline bolus. Blood cultures were positive for Escherichia coli, ESBL positive treated with Zosyn and azithromycin. Has required transfusion of 6 units packed red blood cells during admission. Repeat Hemoccult was negative. Consultants: * GI: EGD/colonoscopy showed hiatal hernia, gastric ulcer, erosive gastritis and colon polyp. Protonix 40 mg every 12 hours was initiated. * Surgery: Consulted to evaluate 7.3 cm infrarenal abdominal aortic aneurysm with laminated wall suggesting a contained rupture versus associated aortic wall inflammation indicating aortitis. Very poor surgical candidate given her multiple comorbidities, recent bleed. * Hematology: consulted for evaluation of pancytopenia, which was felt to be due to cirrhosis and splenomegaly, as well as history of hepatitis C. * Urology: Consulted for gross hematuria, felt to be related to abnormal coagulation profile and thrombocytopenia. Conservative management, outpatient follow-up. Patient seen in room 1717, on simple mask at 10 L saturating 90-93%. Vital signs are stable, BP 122/74, pulse 104, respiratory rate 21, temp 95.8. He denies shortness of breath. He does complain of having no appetite, dyspnea and weakness. We discussed his medical findings and CODE STATUS. He does reiterate that he would accept intubation but no chest compressions, shock or drug. We also discussed health care surrogate and he stated he had no siblings , had never been and had no children. Both parents are . He has named 2 friends as healthcare surrogates, first Iwona Ozuna, who lives in [place] and second, the hotel custodian, María Sherman. Healthcare surrogate form was signed and witnessed. He states that he would like to return to [place] but states he drove here and is certainly too ill and debilitated to drive back at this time. Hospitalist planning on SNF at discharge. . Function/Cognitive Trajectory He has been independent up until admission, but progressively weakening. He is inattentive to personal hygiene and cachectic. He states his appetite and weight have been declining. His initial weight was 200-210 pounds and was 120 pounds on admission. While he was strong enough to drive his car from [place] to [place], during his stay in the hotel he became too weak to get up off the floor after a fall. No previous medical records are available, however his presenting INR was 1.7. He has a known history of hepatitis C diagnosed in the for which he states he received treatment. Hepatitis C titers this hospitalization show low circulating hepatitis C viral titers. CT angiogram showed cirrhotic appearing liver with splenomegaly and moderate ascites. Gastroenterology continues his liver workup. He has baseline pancytopenia due to cirrhosis and splenomegaly with further leukopenia and thrombocytopenia secondary to recent sepsis. He is very weak and at this time is not independent in his ADLs and will require rehabilitation. Given his baseline liver dysfunction, lung disease, failure to thrive, 80 pound weight loss and poor self-care he is at very high risk of recurrent hospitalization. . Review of Systems Constitutional: COMPLAINS OF: Fatigue, Weight loss, Change in appetite, Generalized weakness Respiratory: COMPLAINS OF: Shortness of breath Gastrointestinal: COMPLAINS OF: Black stools, Anorexia Hematologic/Lymphatics: COMPLAINS OF: History of transfusions Past Family Social History Coded Allergies: No Known Allergies (Unverified , 09/28/17) Past Medical History Hepatitis C, s/p treatment in the 80s per patient Past Surgical History None Current Medications Medications (Trade) Dose Ordered Sig/Jailene Route Start Time Stop Time Status Last Admin (NS Flush) 2 ml UNSCH PRN IV FLUSH 09/28/17 13:45 (NS Flush) 2 ml BID IV FLUSH 09/28/17 13:45 10/16/17 21:00 (Narcan Inj) 0.4 mg UNSCH PRN IV PUSH 09/28/17 13:45 (Protonix Inj) 40 mg Q12H IV PUSH 09/28/17 14:00 10/17/17 02:54 (Santyl Oint) 1 applic DAILY TOPICAL 09/29/17 12:45 10/17/17 12:54 (Benadryl) 25 mg Q4H PRN PO 10/01/17 09:30 10/01/17 09:30 (Benadryl 2% Cream) 1 applic TID PRN TOPICAL 10/02/17 10:00 10/02/17 10:23 (Folate) 1 mg DAILY PO 10/02/17 11:00 10/17/17 12:53 Sodium Chloride 1,000 ml @ 105 mls/hr Q9H32M IV 10/04/17 13:45 10/17/17 12:54 (Morphine Inj) 4 mg Q3H PRN IV PUSH 10/06/17 10:00 Ertapenem 1000 mg/ Sodium Chloride 100 ml @ 200 mls/hr Q24H IV 10/06/17 14:00 10/16/17 14:52 (Duoneb Neb) 1 ampule Q6HR WHILE AWAKE NEB NEB 10/15/17 14:00 10/17/17 13:02 (Remeron) 15 mg HS PO 10/16/17 21:00 10/16/17 21:02 (Lopressor) 12.5 mg Q12HR PO 10/16/17 21:00 10/17/17 12:53 (Pill Splitter) 1 ea UNSCH PRN OTHER 10/16/17 10:00 Sodium Chloride 250 ml @ 15 mls/hr ONCE ONCE IV 10/17/17 13:45 10/18/17 06:24 Family History Father, heavy tobacco use, from aneurysm at age 78 Mother, DM, liver disease, at age 84 No family history of colon cancer. . Substance Use Tobacco: Has smoked 2 packs per day for over 60 years. Greater than 120 pack year history. Alcohol: States he quit drinking in his 20s. Prescription med abuse: No reported prescription drug abuse. Illicits: No reported illicit drug abuse. . Psychosocial History Lives in [place] most of the year but visits [facility] every winter. He has been staying in the [facility] for one month. Denies any family in [facility] or [place] and states he has only one cousin in [place] with whom he has had no contact for several years. 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 He was never and has no children. . . Spiritual/Cultural Factors Wealth Management Advisor available. . Living Will: Never completed Health Care Surrogate: Never completed Durable Power of Poultry Dresser: Never completed Physical Exam Vital Signs Date Time Temp Pulse Resp B/P (MAP) Pulse Ox O2 Delivery O2 Flow Rate FiO2 10/17/17 12:00 96.7 88 21 113/61 (78) 97 10/17/17 08:11 90 Simple Mask 10.00 10/17/17 08:00 96.9 92 21 103/59 (74) 92 10/17/17 04:00 96.0 90 17 124/59 (80) 98 10/17/17 00:00 96.1 85 17 120/61 (80) 100 10/16/17 20:00 75 10/16/17 20:00 95.5 93 16 104/60 (75) 98 10/16/17 20:00 97 Simple Mask 11.00 10/16/17 19:32 93 Simple Mask 10.00 10/16/17 17:08 100 Simple Mask 11.00 10/16/17 16:00 96.6 94 18 117/56 (76) 100 Exam CONSTITUTIONAL/GENERAL: This is an adequately nourished patient, in no apparent distress. TUBES/LINES/DRAINS: SKIN: No jaundice, rashes, or lesions. Ecchymoses on upper extremities. No wounds seen anteriorly. Skin temperature appropriate. Not diaphoretic. HEAD: Atraumatic. Normocephalic. EYES: Pupils equal and round and reactive. Extraocular motions intact. No scleral icterus. No injection or drainage. Fundi not examined. ENT: Hearing grossly normal. Nose without bleeding or purulent drainage. Throat without visible erythema, exudates, masses, or lesions. NECK: Trachea midline. Supple, nontender. No palpable thyroid enlargement or nodularity. CARDIOVASCULAR: Regular rate and rhythm without murmurs, gallops, or rubs. No JVD. Peripheral pulses symmetric. RESPIRATORY/CHEST: Symmetric, unlabored respirations. Clear to auscultation. Breath sounds equal bilaterally. No wheezes, rales, or rhonchi. GASTROINTESTINAL: Abdomen soft, non-tender, nondistended. No hepato-splenomegaly , or palpable masses. No guarding. Bowel sounds present. GENITOURINARY: Without palpable bladder distension. Maynard catheter in place. MUSCULOSKELETAL: Extremities without clubbing, cyanosis, or edema. No joint tenderness or effusion noted. No calf tenderness. No mottling or clubbing. LYMPHATICS: No palpable cervical or supraclavicular adenopathy. NEUROLOGICAL: Awake and alert. Motor and sensory grossly within normal limits. Follows commands. Cognitively sharp. Moves all extremities. PSYCHIATRIC: No obvious anxiety/depression. no apparent hallucinations or other psychotic thought process. Diagnostic Tests Laboratory Laboratory Tests Test 10/15/17 08:55 10/15/17 12:08 10/15/17 13:50 10/16/17 09:20 Blood Urea Nitrogen 14 MG/DL (7-18) 14 MG/DL (7-18) Creatinine 0.16 MG/DL (0.60-1.30) 0.28 MG/DL (0.60-1.30) Random Glucose 67 MG/DL (74-106) 81 MG/DL (74-106) Calcium Level 8.2 MG/DL (8.5-10.1) 7.9 MG/DL (8.5-10.1) Sodium Level 145 MEQ/L (136-145) 144 MEQ/L (136-145) Potassium Level 3.9 MEQ/L (3.5-5.1) 3.3 MEQ/L (3.5-5.1) Chloride Level 106 MEQ/L (98-107) 101 MEQ/L (98-107) Carbon Dioxide Level 33.2 MEQ/L (21.0-32.0) 37.6 MEQ/L (21.0-32.0) Anion Gap 6 MEQ/L (5-15) 5 MEQ/L (5-15) Estimat Glomerular Filtration Rate 620 ML/MIN (>89) 325 ML/MIN (>89) Blood Gas Puncture Site RT RADIAL Blood Gas Patient Temperature 98.6 Blood Gas HCO3 36 mmol/L (22-26) Blood Gas Base Excess 11.3 mmol/L (-2-2) Blood Gas Oxygen Saturation 85 % (90-100) Arterial Blood pH 7.42 (7.380-7.420) Arterial Blood Partial Pressure CO2 57 mmHg (38-42) Arterial Blood Partial Pressure O2 55 mmHg (61-120) Arterial Blood Oxygen Content 8.2 Vol % (12.0-20.0) Arterial Blood Carboxyhemoglobin 3.1 % (0-4) Arterial Blood Methemoglobin 1.1 % (0-2) Blood Gas Hemoglobin 6.8 G/DL (12.0-16.0) Oxygen Delivery Device NASAL CANNULA Blood Gas Liter Flow 6 L/M White Blood Count 8.1 TH/MM3 (4.0-11.0) 7.3 TH/MM3 (4.0-11.0) Red Blood Count 2.23 MIL/MM3 (4.50-5.90) 2.81 MIL/MM3 (4.50-5.90) Hemoglobin 7.0 GM/DL (13.0-17.0) 8.9 GM/DL (13.0-17.0) Hematocrit 21.3 % (39.0-51.0) 26.3 % (39.0-51.0) Mean Corpuscular Volume 95.7 FL (80.0-100.0) 93.3 FL (80.0-100.0) Mean Corpuscular Hemoglobin 31.5 PG (27.0-34.0) 31.5 PG (27.0-34.0) Mean Corpuscular Hemoglobin Concent 32.9 % (32.0-36.0) 33.8 % (32.0-36.0) Red Cell Distribution Width 19.5 % (11.6-17.2) 17.4 % (11.6-17.2) Platelet Count 39 TH/MM3 (150-450) 40 TH/MM3 (150-450) Mean Platelet Volume 7.8 FL (7.0-11.0) 8.1 FL (7.0-11.0) Neutrophils (%) (Auto) 82.4 % (16.0-70.0) 84.2 % (16.0-70.0) Lymphocytes (%) (Auto) 14.0 % (9.0-44.0) 11.8 % (9.0-44.0) Monocytes (%) (Auto) 3.1 % (0.0-8.0) 3.2 % (0.0-8.0) Eosinophils (%) (Auto) 0.2 % (0.0-4.0) 0.2 % (0.0-4.0) Basophils (%) (Auto) 0.3 % (0.0-2.0) 0.6 % (0.0-2.0) Neutrophils # (Auto) 6.7 TH/MM3 (1.8-7.7) 6.2 TH/MM3 (1.8-7.7) Lymphocytes # (Auto) 1.1 TH/MM3 (1.0-4.8) 0.9 TH/MM3 (1.0-4.8) Monocytes # (Auto) 0.2 TH/MM3 (0-0.9) 0.2 TH/MM3 (0-0.9) Eosinophils # (Auto) 0.0 TH/MM3 (0-0.4) 0.0 TH/MM3 (0-0.4) Basophils # (Auto) 0.0 TH/MM3 (0-0.2) 0.0 TH/MM3 (0-0.2) CBC Comment AUTO DIFF AUTO DIFF Differential Comment AUTO DIFF CONFIRMED FINAL DIFF MANUAL Platelet Estimate LOW (NORMAL) LOW (NORMAL) Platelet Morphology Comment NORMAL (NORMAL) NORMAL (NORMAL) Differential Total Cells Counted 100 Neutrophils % (Manual) 82 % (16-70) Band Neutrophils % 7 % (0-6) Lymphocytes % 6 % (9-44) Monocytes % 4 % (0-8) Neutrophils # (Manual) 6.6 TH/MM3 (1.8-7.7) Metamyelocytes 1 % (0-1) Toxic Granulation 1+ (NORMAL) Toxic Vacuolation PRESENT (NONE SEEN) Test 10/17/17 07:29 10/17/17 10:38 White Blood Count 3.2 TH/MM3 (4.0-11.0) Red Blood Count 2.61 MIL/MM3 (4.50-5.90) Hemoglobin 8.2 GM/DL (13.0-17.0) Hematocrit 24.5 % (39.0-51.0) Mean Corpuscular Volume 93.9 FL (80.0-100.0) Mean Corpuscular Hemoglobin 31.5 PG (27.0-34.0) Mean Corpuscular Hemoglobin Concent 33.6 % (32.0-36.0) Red Cell Distribution Width 17.8 % (11.6-17.2) Platelet Count 35 TH/MM3 (150-450) Mean Platelet Volume 9.1 FL (7.0-11.0) Neutrophils (%) (Auto) 77.7 % (16.0-70.0) Lymphocytes (%) (Auto) 15.7 % (9.0-44.0) Monocytes (%) (Auto) 5.6 % (0.0-8.0) Eosinophils (%) (Auto) 0.4 % (0.0-4.0) Basophils (%) (Auto) 0.6 % (0.0-2.0) Neutrophils # (Auto) 2.5 TH/MM3 (1.8-7.7) Lymphocytes # (Auto) 0.5 TH/MM3 (1.0-4.8) Monocytes # (Auto) 0.2 TH/MM3 (0-0.9) Eosinophils # (Auto) 0.0 TH/MM3 (0-0.4) Basophils # (Auto) 0.0 TH/MM3 (0-0.2) CBC Comment AUTO DIFF Differential Comment AUTO DIFF CONFIRMED Toxic Granulation 1+ (NORMAL) Platelet Estimate LOW (NORMAL) Platelet Morphology Comment NORMAL (NORMAL) Blood Urea Nitrogen 14 MG/DL (7-18) Creatinine 0.16 MG/DL (0.60-1.30) Random Glucose 61 MG/DL (74-106) Albumin 2.0 GM/DL (3.4-5.0) Calcium Level 8.1 MG/DL (8.5-10.1) Sodium Level 146 MEQ/L (136-145) Potassium Level 3.0 MEQ/L (3.5-5.1) Chloride Level 102 MEQ/L (98-107) Carbon Dioxide Level 37.3 MEQ/L (21.0-32.0) Anion Gap 7 MEQ/L (5-15) Estimat Glomerular Filtration Rate 620 ML/MIN (>89) Blood Gas Puncture Site LT RADIAL Blood Gas Patient Temperature 98.6 Blood Gas HCO3 38 mmol/L (22-26) Blood Gas Base Excess 12.7 mmol/L (-2-2) Blood Gas Oxygen Saturation 92 % (90-100) Arterial Blood pH 7.44 (7.380-7.420) Arterial Blood Partial Pressure CO2 56 mmHg (38-42) Arterial Blood Partial Pressure O2 71 mmHg (61-120) Arterial Blood Oxygen Content 8.0 Vol % (12.0-20.0) Arterial Blood Carboxyhemoglobin 2.3 % (0-4) Arterial Blood Methemoglobin 1.0 % (0-2) Blood Gas Hemoglobin 6.1 G/DL (12.0-16.0) Oxygen Delivery Device SM Blood Gas Liter Flow 10 L/M . Result Diagram: 10/17/17 0729 10/17/17 0729 Microbiology Microbiology Date/Time Source Procedure Growth Status 10/10/17 12:55 Blood Peripheral Aerobic Blood Culture - Final NO GROWTH IN 5 DAYS Complete 10/10/17 12:55 Blood Peripheral Anaerobic Blood Culture - Final NO GROWTH IN 5 DAYS Complete 10/01/17 13:10 Fluid Pleural Fluid Fungal Smear - Final NO FUNGAL ELEMENTS SEEN. Resulted 10/01/17 13:10 Fluid Pleural Fluid Fungal Culture - Preliminary NO GROWTH IN 2 WEEKS Resulted 10/09/17 14:00 Stool Stool Stool Occult Blood (CALE) - Final HEMOCCULT NEGATIVE Complete . Imaging Last Impressions CT Angiography 10/16/17 0000 Signed Impressions: Service Date/Time: September 14:10 - CONCLUSION: 1. No evidence of pulmonary embolism 2. Moderate to large left-sided pleural effusion with compressive atelectasis of the left lower lung 3. Small right-sided pleural effusion with atelectasis in the right lung base. 4. Ascites in the upper abdomen. Justo Florian MD Chest X-Ray 10/15/17 0000 Signed Impressions: Service Date/Time: Sunday, October 15, 2017 11:07 - CONCLUSION: No significant change. There is a small to moderate left effusion. Edilson Abreu MD Renal Ultrasound 10/04/17 0000 Signed Impressions: Service Date/Time: Wednesday, October 04, 2017 10:29 - CONCLUSION: 1. Small nonobstructing 3 mm calyceal calculus in the mid left kidney. 2. 1.4 cm cyst in the inferior pole of the right kidney. 3. Small amount of ascites. Rohan Leigh MD Aorta CTA 10/01/17 1556 Signed Impressions: Service Date/Time: Sunday, October 01, 2017 17:11 - CONCLUSION: 1. 7.3 cm infrarenal abdominal aortic aneurysm with laminated wall as described above. Findings suggest a contained rupture which may be chronic and possible associated aortic wall inflammation indicating aortitis. 2. Chronic liver disease characteristic of cirrhosis. 3. Splenomegaly 4. Cholelithiasis 5. Moderate ascites 6. No evidence of portal vein thrombosis or Budd-Chiari syndrome. 7. COPD with bibasilar airspace disease and parapneumonic effusions. 1. Herve Berumen MD Thoracentesis Ultrasound 10/01/17 0000 Signed Impressions: Service Date/Time: Sunday, October 01, 2017 11:27 - CONCLUSION: Uncomplicated ultrasound guided thoracentesis. Marc Alfredo MD Cyst Biopsy Asp-Paracentesis US 10/01/17 0000 Signed Impressions: Service Date/Time: Sunday, October 01, 2017 09:53 - CONCLUSION: Uncomplicated ultrasound guided paracentesis. Marc Alfredo MD Abdomen/Pelvis CT 09/30/17 0000 Signed Impressions: Service Date/Time: Sunday, October 01, 2017 02:21 - CONCLUSION: 1. 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 2. Moderate pleural effusions and moderate amount of abdominal pelvic ascites. 3. 2 calcified gallstones. David Blunt MD Chest CT 09/28/17 0000 Signed Impressions: Service Date/Time: Friday, September 29, 2017 01:23 - CONCLUSION: 1. The dominant opacity seen on recent chest x-ray represents loculated pleural effusion in the superior major fissure. 2. Small bilateral pleural effusions, mild consolidative infiltrates in the right lower lung, and right upper abdominal ascites. 3. Calcified gallstones. David Blunt MD Procedures 09/29: EGD/colonoscopy. . Patient/Family Conference Issues Discussed: * Palliative care role, purpose, approach * Additional medical, psychosocial, and spiritual history * Patients general health, functional status, and cognitive changes in the months leading up to the current hospitalization * Patient/family understanding of the current medical problems * Patient/family understanding of prognosis * Patients goals of care as best understood from advance directives and/or conversations and/or values * Current medical treatment options and benefits/burdens of those options * Likely scenarios comparing ongoing aggressive care with a transition to comfort measures only * Questions answered to the best of my ability * Palliative care contact information provided Assessment and Plan Disease Oriented Problem List: (1) Anemia (2) GI bleed (3) Hypokalemia (4) Hepatitis C (5) Pancytopenia (6) AAA (abdominal aortic aneurysm) (7) Ascites (8) Hematuria (9) Diarrhea (10) Hypoxia Symptom Scale: (1) Dyspnea and respiratory abnormalities (2) Weakness (3) Decreased appetite Pertinent Non-Medical Issues Psychosocial:Lives in [place] most of the year but visits [facility] every winter. He has been staying in the [facility] for one month. Denies any family in [facility] or [place] and states he has only one cousin in [place] with whom he has had no contact for several years. 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 He was never and has no children. . Spiritual: Declines artificial flowers dyer, however is aware that one is available. Legal: At this time he appears able to make decisions for himself. He has named his friend Iwona Ozuna (first) and his hotel custodian María Sherman ( alternate) as his healthcare surrogates. Ethical issues impacting care: None noted at this time. . Important Contacts Friend - Iwnoa Ozuna Friend/hotel custodian - Maríalori Sherman . Prognosis His prognosis is poor. Imaging shows a moderate to large left-sided pleural effusion with compressive atelectasis of the left lower lung and ascites in the upper abdomen. He has undergone paracentesis of 1 L during hospitalization. His liver is noted to be cirrhotic, he is auto anticoagulated and had a GI bleed on admission. He has an extensive smoking history of over 120 pack years and is hypoxic, requiring a 10 L simple mask to maintain minimal saturation. In addition to the compromise of his liver and lungs, he has pancytopenia, felt to be related to his liver disease and recent sepsis. He is at significant risk of continued decline and recurrent hospitalizations. . Code Status: Alternative Code (intubation only) Plan PLAN: Legal decision maker: At this time he is able to make his own decisions, but has named his friend Iwona as his first health care surrogate and his hotel custodian María as his alternate. Goals: Willing to go to rehabilitation to try to regain strength, refusing CPR, drugs, shock. CODE STATUS: Alternate code. Will accept intubation but no CPR, drugs or shock. SYMPTOMS: Weakness, dyspnea, decreased appetite * Weakness: Likely multi-factorial to include protein calorie malnutrition, hypoxemia and recent sepsis. He has not been amenable to participating in physical therapy, frequently declining services. When he has participated he is a 2 person assist for transfer from bed to chair. He is receiving mirtazapine for appetite stimulant. His lunch tray is at bedside largely untouched. Without adequate nutrition and effort on the part of the patient he is likely to continue to decline. * Dyspnea: He remains on a 10 L simple mask. He has a large left pleural effusion and pulmonology has been consulted for further management. This is also affected by his ascites and upward pressure on the diaphragm as well as his atelectasis and extensive smoking history. He was recently evaluated for pulmonary embolus and was found negative. He is at high risk for intubation, which this patient states he will accept. * Decreased appetite: Likely multi-factorial to include ascites, difficulty breathing and weakness. A variety of foods, juices and ensure are seen on the bedside table, largely untouched. Patient states he has had no appetite for some time. He is receiving mirtazapine which has not been significantly effective for his lack of appetite. He may benefit from Marinol. SUMMARY: This is a 66-year-old male admitted with liver compromise, severe hypoxia and sepsis. He continues to decline and half pancytopenia. His liver is found to be cirrhotic and he is developing recurrent ascites as well as pleural effusions. He is at elevated risk of continued respiratory compromise and intubation. He is not participating in therapy, has no appetite and is not likely to improve without adequate nutrition. He is likely to continue to decline and having recurrent admissions. He would be appropriate for hospice if goals are consistent. Palliative care will continue to follow the patient during hospital course as condition evolves, to assist patient/decision-maker with understanding of their medical conditions, weighing benefits/burdens of treatment options, for clarification of goals of treatment. Additionally will assist with any symptoms of palliative concern. . Thank you for the opportunity to participate in the care of Mr. Friedman. Attestation To help prompt me to consider important information that might be impacting today's encounter and assessment, information from prior notes written by myself or my colleagues may have been "brought forward" into today's note. My signature on this note, however, is an attestation that I personally performed the exam, history, and/or decision-making noted today, and, unless otherwise indicated, the interactions with patient, family, and staff as well as the review of records all occurred today. I also attest that the listed assessment and stated plan reflect my best clinical judgment today based on the combination of historical information, prior notes, and today's exam/ interactions. When time spent is documented, it refers only to time spent today by the signer, or if indicated, combined time spent today by collaborating physician/nurse practitioner. . Bing Arguello Oct 17, 2017 3:08 pm
[2017-10-17] MEDS: ERTAPENEM INJ 1,000 MG in SODIUM CHLORIDE 0.9% INJ 100 ML IV SCH (16:10)
[2017-10-17 19:54] LABS: HEMATOCRIT 27.8 % (39.0-51.0); HEMOGLOBIN 9.3 GM/DL (13.0-17.0); MEAN CELL VOLUME 93.7 FL (80.0-100.0); MEAN CORPUSCULAR HEMOGLOBIN 31.4 PG (27.0-34.0); MEAN CORPUSCULAR HGB CONC 33.4 % (32.0-36.0); MEAN PLATELET VOLUME 8.2 FL (7.0-11.0); PLATELET COUNT 34 TH/MM3 (150-450); RED BLOOD COUNT 2.97 MIL/MM3 (4.50-5.90); RED CELL DISTRIBUTION WIDTH 17.2 % (11.6-17.2); WHITE BLOOD COUNT 2.8 TH/MM3 (4.0-11.0)
[2017-10-17 20:10] LABS: INTERNATIONAL NORMALIZED RATIO 1.5 RATIO; PROTHROMBIN TIME - PATIENT 15.5 SEC (9.8-11.6)
[2017-10-17] MEDS: MIRTAZAPINE 15 MG TAB PO SCH (20:29)
--- NOTE | 2017-10-17 21:54 | MB ---
cc: CHANTEL LOPEZ DATE OF CONSULTATION 10/17/17 REASON FOR CONSULTATION Pleural effusion. HISTORY OF PRESENT ILLNESS This is a 66-year-old white male who has been treated for hepatitis C and COPD with nicotine dependency, chronic aspirin use who was admitted through the emergency room on 09/28 with weakness and a fall. The patient was brought through the emergency room where he was noted to be severely anemic and had black tarry stools with diarrhea and had to be given transfusions with packed cells and was seen by GI for evaluation of GI bleeding. The patient has had no prior surgical history, but following admission the patient had to be placed on multiple antibiotics since he was hypotensive and met sepsis criteria and was started on Zosyn and Zithromax intravenously and had positive blood cultures for E-coli. EGD and endoscopy was done which showed evidence of gastric ulcer and erosive gastritis and a colon polyp. He has been on Protonix. Surgical evaluation was also done by vascular surgery since he had an infrarenal abdominal aortic aneurysm as well as ___titis. The patient was considered a poor candidate for surgery due to recent bleed. He was seen by hematology for pancytopenia and splenomegaly. Urology was consulted for hematuria and thrombocytopenia was noted with conservative management recommended. The patient has been on oxygen during his hospital stay and his chest x-ray done on the showed a small to moderate left pleural effusion and a CT angiogram that was done yesterday showed no evidence of pulmonary emboli but showed a moderate to large left-sided pleural effusion with compressive atelectasis of the left lung and a small right-sided pleural effusion with atelectasis in the right lung base. The patient presently is on a simple mask, but denies any shortness of breath. Denies chest pain. He has no hemoptysis. He does have a cough and has some abdominal discomfort, not running any fever. HABITS The patient has smoked two packs per day for 60 years. Alcohol use heavy in the past but not recently. FAMILY HISTORY Significant for chronic obstructive pulmonary disease in his father. The mother had diabetes and liver disease. REVIEW OF SYSTEMS The patient is having some abdominal discomfort, epigastric distress. Denies nausea, vomiting. Denies GI bleed at this time. He has had some leg swelling and denies headaches or blackouts and seems to have complaints of generalized weakness. ALLERGIES No known drug allergies are listed. PHYSICAL EXAMINATION GENERAL: This is a moderately overweight elderly white male who is laying flat. VITAL SIGNS: Blood pressure 128/70, pulse 105, respirations 20, temperature 96. HEENT: Head normocephalic. Pupils are reactive. Sclerae anicteric. Throat was dry. He has no inflammation. NECK: Supple. No bruits or thyroid enlargement. CHEST: Distant breath sounds over the left mid lower chest with occasional bibasilar crackles. No S3 gallop. ABDOMEN: Soft and protuberant. There is some tenderness in the upper abdomen and the liver is just felt below the right costal margin. The bowel sounds are active. EXTREMITIES: Edema. Mild edema with decreased peripheral pulses. Reflexes are 1+ with no gross motor deficits. SKIN: No lesions observed. RECTAL: Exam is deferred. IMPRESSION 1. Loculated left pleural effusion. Etiology undetermined. 2. History of hepatitis C 3. GI bleeding with anemia and gastric ulceration. 4. Atelectasis both bases with probable resolving pneumonia 5. COPD with emphysema and chronic bronchitis 6. Sepsis resolved 7. Pancytopenia. 8. Abdominal aortic aneurysm. PLAN The patient has been started on O2 at three liters. We will get an ultrasound examination of the left chest. If there is significant fluid present, a thoracentesis will be planned. We will hold off on any anticoagulation at this time and incentive spirometry will be added q.i.d. Antibiotic will be continued per infectious disease service. Nebulized DuoNeb solution added q.i.d. and p.r.n. The patient will need physical therapy when he is clinically stable. Thank you for this consultation. MD ABRAM Campbell/ /7:22 PM /9:23 PM
--- NOTE | 2017-10-17 22:53 | RADRPT ---
EXAM DATE/TIME: 10/17/2017 22:23 [facility] COMPARISON: CT PULMONARY ANGIOGRAM, October 16, 2017, 14:10. INDICATIONS : Pleural effusion. MEDICAL HISTORY : Glasses. Dyspnea. Liver disease. Hepatitis. MRSA. SURGICAL HISTORY : None. ENCOUNTER: Initial ACUITY: 1 day PAIN SCORE: 3/10 LOCATION: Left chest MEASUREMENTS: SKIN TO PARIETAL PLEURA: 1.6 cm SKIN TO MAX SAFE DEPTH: 3.8 cm ESTIMATED FLUID VOLUME: 1531 cc FLUID COMPOSITION: simple FINDINGS: Pleural effusion as above. A govind was placed on the skin surface superficial to the pleural fluid col lection. CONCLUSION: Moderate to large pleural effusion. Patient was marked for thoracentesis. Edilson Abreu MD on October 17, 2017 at 22:50 Board Certified Radiologist. This report was verified electronically.
[2017-10-18] VITALS (12 sets, daily range): BP systolic 100–129; BP diastolic 59–76; PULSE 81–109; RESP 18–20; TEMP 95.1–96.9; O2SAT 90–100
[2017-10-18 01:05] LABS: HEMATOCRIT 29.6 % (39.0-51.0); HEMOGLOBIN 10.1 GM/DL (13.0-17.0)
[2017-10-18] MEDS: PANTOPRAZOLE SODIUM 40 MG VIAL IV PUSH SCH ×2 (02:25→14:16)
[2017-10-18] MEDS: SODIUM CHLOR 0.9% 1000 ML INJ 1,000 ML IV SCH ×3 (03:27→21:39)
[2017-10-18 06:50] LABS: AUTOMATED NEUTROPHIL # 1.8 TH/MM3 (1.8-7.7); BASOPHIL % 0.5 % (0.0-2.0); EOSINOPHIL % 1.4 % (0.0-4.0); HEMATOCRIT 33.9 % (39.0-51.0); HEMOGLOBIN 11.4 GM/DL (13.0-17.0); LYMPH % 21.4 % (9.0-44.0); LYMPHOCYTE # 0.6 TH/MM3 (1.0-4.8); MEAN CELL VOLUME 92.4 FL (80.0-100.0); MEAN CORPUSCULAR HEMOGLOBIN 31.1 PG (27.0-34.0); MEAN CORPUSCULAR HGB CONC 33.6 % (32.0-36.0); MEAN PLATELET VOLUME 8.6 FL (7.0-11.0); MONO % 7.1 % (0.0-8.0); MONOCYTE # 0.2 TH/MM3 (0-0.9); NEUT % 69.6 % (16.0-70.0); PLATELET COUNT 41 TH/MM3 (150-450); RED BLOOD COUNT 3.67 MIL/MM3 (4.50-5.90); RED CELL DISTRIBUTION WIDTH 17.7 % (11.6-17.2); WHITE BLOOD COUNT 2.6 TH/MM3 (4.0-11.0)
[2017-10-18 07:14] LABS: BICARBONATE 37.8 MEQ/L (21.0-32.0); CALCIUM 8.4 MG/DL (8.5-10.1); CREATININE 0.29 MG/DL (0.60-1.30); MAGNESIUM 1.5 MG/DL (1.5-2.5); PHOSPHORUS 2.5 MG/DL (2.5-4.9)
[2017-10-18 08:00] LABS: BANDS 14 % (0-6); BASOPHILS 1 % (0-2); CORRECTED NUCLEATED RBC 1 /100 WBC (0-0); LYMPHOCYTES 6 % (9-44); MONOCYTES 6 % (0-8); NEUTROPHIL # MANUAL DIFF 2.2 TH/MM3 (1.8-7.7); NUCLEATED RED BLOOD CELL 1 (0-0); POLYS (SEG NEUTROPHILS) 72 % (16-70)
[2017-10-18 08:01] LABS: TOXIC GRANULATION 2+ (NORMAL); TOXIC VACUOLATION PRESENT (NONE SEEN)
[2017-10-18] MEDS: RESP: ALBUTEROL 2.5 MG/IPRATROPIUM 0.5 MG NEB (SCH) NEB ×3 (08:05→20:54)
[2017-10-18] MEDS: SODIUM CHLORIDE 0.9% FLUSH 10 ML FLUSH IV FLUSH SCH ×2 (08:12→21:00)
[2017-10-18] MEDS: FOLIC ACID 1 MG TAB PO SCH (08:16)
[2017-10-18] MEDS: METOPROLOL TARTRATE 25 MG TAB PO SCH ×2 (08:16→21:39)
[2017-10-18] MEDS: COLLAGENASE OINT 30 GM TUBE TOPICAL SCH (08:18)
[2017-10-18] MEDS ORDERED: diphenhydrAMINE HCL 25 MG CAP PO PRN (10:00)
[2017-10-18] MEDS: ERTAPENEM INJ 1,000 MG in SODIUM CHLORIDE 0.9% INJ 100 ML IV SCH (14:16)
--- NOTE | 2017-10-18 14:33 | HHI.FPPN ---
Subjective Remarks Patient seen and examined today. States he continues to have some fecal incontinence, however he has had less bowel movements. No nausea, vomiting, fever, chills, dull pain, chest pain, shortness of breath, difficulty breathing. We discussed the importance of nutrition. He stated he understands importance and will continue to try to at least drink the ensures provided, attempt to eat solid food. (Edilson Shoemaker MD R1) Objective Vitals Vital Signs Date Time Temp Pulse Resp B/P (MAP) Pulse Ox O2 Delivery O2 Flow Rate FiO2 10/18/17 12:00 95.5 90 20 122/76 (91) 99 10/18/17 08:15 91 Venturi Mask 11.00 10/18/17 08:00 95.2 90 18 128/67 (87) 98 10/18/17 04:00 95.1 91 20 108/67 (81) 92 10/17/17 23:47 96.2 89 20 122/63 91 10/17/17 20:23 96.6 88 20 112/60 93 10/17/17 20:00 Simple Mask 11.00 Humidified 10/17/17 20:00 90 10/17/17 19:03 93 Simple Mask 10.00 10/17/17 17:26 95.8 104 21 122/74 93 10/17/17 16:57 95.9 110 22 113/68 97 10/17/17 16:00 95.9 110 22 113/68 (83) 97 I/O 10/17/17 10/17/17 10/17/17 10/18/17 10/18/17 10/18/17 07:00 15:00 23:00 07:00 15:00 23:00 Intake Total 0 ml 1100 ml 400 ml Output Total 750 ml 500 ml Balance -750 ml 600 ml 400 ml Intake Oral 0 ml 600 ml IV Total 100 ml Packed Cells 400 ml 400 ml Output Urine Total 750 ml 500 ml # Bowel Movements 1 (Edilson Shoemaker MD R1) Result Diagram: 10/18/17 0545 10/18/17 0545 Imaging Last 72 hours Impressions Chest Ultrasound 10/17/17 0000 Signed Impressions: Service Date/Time: Tuesday, October 17, 2017 22:23 - CONCLUSION: Moderate to large pleural effusion. Patient was marked for thoracentesis. Edilson Abreu MD CT Angiography 10/16/17 0000 Signed Impressions: Service Date/Time: September 14:10 - CONCLUSION: 1. No evidence of pulmonary embolism 2. Moderate to large left-sided pleural effusion with compressive atelectasis of the left lower lung 3. Small right-sided pleural effusion with atelectasis in the right lung base. 4. Ascites in the upper abdomen. Justo Florian MD Objective Remarks CONSTITUTIONAL/GEN: Cachectic male, lying in bed SKIN: Maculopapular rash extending from mid back along the left axilla, some noted on left chest ENT: Mouth and pharynx show moist MM, upper teeth missing, many lower teeth absent, those remaining are in poor repair LUNGS: Decreased breath sounds bilaterally; normal rate. Patient on face mask CARDIOVASCULAR: Tachycardia. No LE edema GI/ABD: soft, normal BS; no pain to palpation SKIN: pale, lichenification both ankles. sacrum not visualized today PSYCH/MENTAL STATUS: Alert and oriented x 3. No appreciated CN defects. No peripheral motor/sensory defects : catheter in place; Dark urine in schaefer bag (Edilson Shoemaker MD R1) A/P Assessment and Plan 66 yr old M Hep C, hx of heavy smoking (2ppd for 61 yrs), and chronic aspirin use presented to the ED with anemia and black tarry stools secondary to suspected GI bleed. Patient transferred to ICU 09/30 for ESBL E.coli sepsis. Patient hemodynamically stable for transfer to med/surg 10/03. Discharge Planning Case Management to assist with SNF placement Pending infection workup and hematology clearance (Edilson Shoemaker MD R1) Problem List: (1) Hypoxia ICD Codes: R09.02 - Hypoxemia Status: Acute Plan: CXR (10/15): no change; small to moderate left effusion (no interval change from 10/12 (pulmonary vascular congestion, L sided effusion)) ABG: pH 7.42, pCO2 57, pO2 55, O2 sat 85% s/p Lasix 40mg IV x1 s/p transfusion Echo on 10/01 shows EF of 60-65%, normal LV systolic function -Continue duonebs -O2 PRN -CTA without evidence of PE, left-sided pleural effusion, ascites noted -ABG 10/17 pH 7.44, PCO2 56, PO2 71 -Pulmonology consulted, follow-up recommendations * Ultrasound of left chest * Thoracentesis if significant fluid present * Anticoagulation to be held * Incentive spirometry * DuoNeb 4 times a day, when necessary Impression: Patient has been on 5 L O2 via NC since admission; recently hypoxia 10/15 with O2 saturations in upper 70's. Associated with anemia. Decreased breath sounds on exam; no wheezing. No symptoms appreciated by patient, no tachypnea. History of tobacco abuse. CT revealed dominant opacity seen on recent CXR represents loculated pleural effusion in the superior major fissure. Small b/l pleural effusions, mild consolidative infiltrates in the right lower lung, and right upper abdominal ascites. Calcified gallstones. S/p thoracentesis 10/01/2017- pleural fluid negative for malignancy (2) Bacteremia ICD Codes: R78.81 - Bacteremia Status: Acute Plan: ID consulted, appreciate recommendations * E.coli ESBL sepsis, source is likely GI, questionable SBP * Continue Ertapenem 1000 mg IV q24h (10/02) x 6-8 weeks per ID History: Transferred to med/surg floor 10/03; previously transferred to ICU secondary to ESBL sepsis. Patient met sepsis criteria 09/29 due to tachycardic at 95-113 and hypotension 86/53 Lactic acid 1.4 09/29, Repeat lactic acid 1.5 s/p 500cc bolus of NS, MIVF 140mls/hr 09/29 * CT abd/pelvis w/o contrast done 09/30 revealed moderate size left pleural effusion, ascites, 5cm infrarenal abdominal aortic aneurysm and mesenteric stranding. * CTA 10/01 7.3 cm AAA, contained rupture, cirrhosis, splenomegaly, cholelithiasis, moderate ascites, no evident of protal vein thrombosis or Budd- Chiari syndrome, COPD with bibasilar airspace disease and parapneumonic effusions * 2-D echo - 60-65% EF * Left pleural effusion- thoracentesis with removal of 750 cc of dark yellow fluid. Fluid appeared transudative. * Ascites- paracentesis with removal of 1100 cc of yellow fluids. This appeared due to portal hypertension. * Possibility of aortoenteric fistula Cultures: Blood- Cultures 10/10 NGTD Staph hominis 10/06 (pansensitive) ESBL E Coli 09/29 (resistant, to Ampicillin, Unasyn, Cefazolin, Cefepime, Cefuroxime, Levofloxacin) Antibiotic history: Vancomycin (restarted 10/07-10/11) Vancomycin 1,250mg IV q12h (09/29-10/01) Zosyn 4.5 gm IV q6h (started 09/30-09/22) Azithromycin 250mg PO daily (10/01-10/04) (3) Pancytopenia ICD Codes: D61.818 - Other pancytopenia Plan: Hem/Onc consulted, appreciate recs -Neupogen PRN per Hematology -Monitor CBC and transfuse as needed -Continue daily folate -Hemoglobin 11.4 10/18, status post 2 units RBCs 10/17 Impression: Pancytopenia; failure to thrive. Per Hem Onc, treated in / cleared but titers elevated during hospitalization. WBC down since admission, Hb stable, plts trending down since admission A/P CT and CTA - pelvic ascites, 7.3cm infrarenal AAA, calcified gallstones, moderate pleural effusions, cirrhosis, CTA S/P thoracentesis, paracentesis Transfusion history: 2 units of RBCS transfused 09/28, 1 unit of RBCs transfused 09/29, and 1 unit of RBCs transfused 09/30 1 unit of FFP transfused 09/30 1 unit of Leuk-redu pheresis plts transfused 10/01 prior to thoracentesis 2 units of pRBC given on 10/05 (4) Rash and nonspecific skin eruption ICD Codes: R21 - Rash and other nonspecific skin eruption Status: Acute Plan: Rash extending from patient's back, moderately in left axilla, mildly on left chest. Noted on 10/18 -Benadryl as needed -We will contact infectious disease to rule out antibiotic side effect, follow- up recommendations -Monitor for improvement or change (5) AAA (abdominal aortic aneurysm) ICD Codes: I71.4 - Abdominal aortic aneurysm, without rupture Plan: CT abd/pelvis w/o contrast done 09/30 5cm infrarenal abdominal aortic aneurysm Aorta CTA 7.3 cm infrarenal AAA with laminated wall, contained rupture which may be chronic and possible associated aortic wall inflammation indicating aortitis Vascular surgery consulted, appreciate recs [facility] confirms that no intervention at this time No intervention for AAA until infection cleared -Continue to follow at this time -Add metoprolol tartrate 12.5mg BID for tachycardia (6) GI bleed ICD Codes: K92.2 - Gastrointestinal hemorrhage, unspecified Status: Acute Plan: GI consulted for mesenteric stranding and ascites, appreciate recommendations -Protonix 40mg IV BID -Supportive care -Sign off; consult as needed Avoid NSAIDs and anticoagulation EGD in 2 months Colonoscopy in 2 years History: Hb of 6.1 upon admission,1 month hx of black tarry stools, chronic aspirin use 2 units of RBCS transfused 09/28, 1 unit of RBCs transfused 09/29, and 1 unit of RBCs transfused 09/30 Hb stable Hemoccult performed by RN in ED on 09/28- positive EGD/colonoscopy demonstrated hiatal hernia, gastric ulcer, erosive gastritis and colon polyp Duo/stomach biopsy- Stomach, reactive/chemical gastropathy with intestinal metaplasia. Colon, sigmoid, adenomatous polyp HCV quant, less than 15 IUs/ ml, less than 1.18 log IUs/mlAlpha-feto protein wnl Elevated ferritin levels due to underlying cirrhosis most likely AMSA, AMA negative A1AT 148 Hemochromatosis workup negative (7) Hematuria ICD Codes: R31.9 - Hematuria, unspecified Plan: -UA 09/30 moderate occult blood, unlikely traumatic, patient has condom catheter -PSA wnl 0.15 -Renal US 10/04 demonstrated small nonobstructing 3mm calyceal calculus in the mid left kidney. 1.4 cm cyst in the inferior pole of the right kidney. -Urology consulted, recs appreciated Urologic impression: gross hematuria (now resolved) of indeterminate etiology; abnormal coagulation profile and thrombocytopenia likely contributing to the hematuria * manage conservatively for now * office follow up after hospital discharge when overall medical condition improved for cystoscopic evaluation [phone] * will be available as needed during present hospitalization (8) Hepatitis C ICD Codes: B19.20 - Unspecified viral hepatitis C without hepatic coma Plan: Patient reports history of Hep C. Patient reports being treated in the . LFTs wnl. alpha fetoprotein wnl HCV quant, less than 15 IUs/ml, less than 1.18 log IUs/ml (9) Abnormal chest x-ray ICD Codes: R93.8 - Abnormal findings on diagnostic imaging of other specified body structures Plan: Impression: Heavy smoker. Mass 2.51 x 3.86 found on CXR. Small free- flowing right pleural effusion at the base. CT revealed dominant opacity seen on recent CXR represents loculated pleural effusion in the superior major fissure. Small b/l pleural effusions, mild consolidative infiltrates in the right lower lung, and right upper abdominal ascites. Calcified gallstones. S/p thoracentesis 10/01/2017- pleural fluid negative for malignancy (10) RALF (acute kidney injury) ICD Codes: N17.9 - Acute kidney failure, unspecified Status: Resolved Plan: -Resolved -Continue to monitor Impression: RALF secondary to dehydration BUN 28 and Cr 0.53 upon admission (11) Sacral wound ICD Codes: S31.000A - Unspecified open wound of lower back and pelvis without penetration into retroperitoneum, initial encounter Plan: Unstageable sacral wound, 3cm x 6cm Wound care consulted, recommendations appreciated 1) Cleanse sacral wound with normal saline,pat dry. 2) Apply skin prep to gibran wound 3) Santyl josé thick to wound bed 4) Cover with Maxorb 2 cut to fit. 5) Cover with dry dressing (boarder gauze) 6) Change dressing Daily (12) Nutrition, metabolism, and development symptoms ICD Codes: R63.8 - Other symptoms and signs concerning food and fluid intake Plan: Fluids: 50mls/hr NS due to poor appetite Diet: Regular Basic Electrolytes: monitor and replace as needed Other: Case management consulted GI ppx: Protonix 40mg IV q12h DVT ppx: SCDs (Edilson Shoemaker MD R1) Problem List: (1) Hypoxia ICD Codes: R09.02 - Hypoxemia Status: Acute Plan: CXR (10/15): no change; small to moderate left effusion (no interval change from 10/12 (pulmonary vascular congestion, L sided effusion)) ABG: pH 7.42, pCO2 57, pO2 55, O2 sat 85% s/p Lasix 40mg IV x1 s/p transfusion Echo on 10/01 shows EF of 60-65%, normal LV systolic function -Continue duonebs -O2 PRN -CTA without evidence of PE, left-sided pleural effusion, ascites noted -ABG 10/17 pH 7.44, PCO2 56, PO2 71 -Pulmonology consulted, follow-up recommendations * Ultrasound of left chest * Thoracentesis if significant fluid present * Anticoagulation to be held * Incentive spirometry * DuoNeb 4 times a day, when necessary Impression: Patient has been on 5 L O2 via NC since admission; recently hypoxia 10/15 with O2 saturations in upper 70's. Associated with anemia. Decreased breath sounds on exam; no wheezing. No symptoms appreciated by patient, no tachypnea. History of tobacco abuse. CT revealed dominant opacity seen on recent CXR represents loculated pleural effusion in the superior major fissure. Small b/l pleural effusions, mild consolidative infiltrates in the right lower lung, and right upper abdominal ascites. Calcified gallstones. S/p thoracentesis 10/01/2017- pleural fluid negative for malignancy (2) Bacteremia ICD Codes: R78.81 - Bacteremia Status: Acute Plan: ID consulted, appreciate recommendations * E.coli ESBL sepsis, source is likely GI, questionable SBP * Continue Ertapenem 1000 mg IV q24h (10/02) x 6-8 weeks per ID History: Transferred to med/surg floor 10/03; previously transferred to ICU secondary to ESBL sepsis. Patient met sepsis criteria 09/29 due to tachycardic at 95-113 and hypotension 86/53 Lactic acid 1.4 09/29, Repeat lactic acid 1.5 s/p 500cc bolus of NS, MIVF 140mls/hr 09/29 * CT abd/pelvis w/o contrast done 09/30 revealed moderate size left pleural effusion, ascites, 5cm infrarenal abdominal aortic aneurysm and mesenteric stranding. * CTA 10/01 7.3 cm AAA, contained rupture, cirrhosis, splenomegaly, cholelithiasis, moderate ascites, no evident of protal vein thrombosis or Budd- Chiari syndrome, COPD with bibasilar airspace disease and parapneumonic effusions * 2-D echo - 60-65% EF * Left pleural effusion- thoracentesis with removal of 750 cc of dark yellow fluid. Fluid appeared transudative. * Ascites- paracentesis with removal of 1100 cc of yellow fluids. This appeared due to portal hypertension. * Possibility of aortoenteric fistula Cultures: Blood- Cultures 10/10 NGTD Staph hominis 10/06 (pansensitive) ESBL E Coli 09/29 (resistant, to Ampicillin, Unasyn, Cefazolin, Cefepime, Cefuroxime, Levofloxacin) Antibiotic history: Vancomycin (restarted 10/07-10/11) Vancomycin 1,250mg IV q12h (09/29-10/01) Zosyn 4.5 gm IV q6h (started 09/30-09/22) Azithromycin 250mg PO daily (10/01-10/04) (3) Pancytopenia ICD Codes: D61.818 - Other pancytopenia Plan: Hem/Onc consulted, appreciate recs -Neupogen PRN per Hematology -Monitor CBC and transfuse as needed -Continue daily folate -Hemoglobin 11.4 10/18, status post 2 units RBCs 10/17 Impression: Pancytopenia; failure to thrive. Per Hem Onc, treated in / cleared but titers elevated during hospitalization. WBC down since admission, Hb stable, plts trending down since admission A/P CT and CTA - pelvic ascites, 7.3cm infrarenal AAA, calcified gallstones, moderate pleural effusions, cirrhosis, CTA S/P thoracentesis, paracentesis Transfusion history: 2 units of RBCS transfused 09/28, 1 unit of RBCs transfused 09/29, and 1 unit of RBCs transfused 09/30 1 unit of FFP transfused 09/30 1 unit of Leuk-redu pheresis plts transfused 10/01 prior to thoracentesis 2 units of pRBC given on 10/05 (4) Rash and nonspecific skin eruption ICD Codes: R21 - Rash and other nonspecific skin eruption Status: Acute Plan: Rash extending from patient's back, moderately in left axilla, mildly on left chest. Noted on 10/18 -Benadryl as needed -We will contact infectious disease to rule out antibiotic side effect, follow- up recommendations -Monitor for improvement or change (5) AAA (abdominal aortic aneurysm) ICD Codes: I71.4 - Abdominal aortic aneurysm, without rupture Plan: CT abd/pelvis w/o contrast done 09/30 5cm infrarenal abdominal aortic aneurysm Aorta CTA 7.3 cm infrarenal AAA with laminated wall, contained rupture which may be chronic and possible associated aortic wall inflammation indicating aortitis Vascular surgery consulted, appreciate recs [facility] confirms that no intervention at this time No intervention for AAA until infection cleared -Continue to follow at this time -Add metoprolol tartrate 12.5mg BID for tachycardia (6) GI bleed ICD Codes: K92.2 - Gastrointestinal hemorrhage, unspecified Status: Acute Plan: GI consulted for mesenteric stranding and ascites, appreciate recommendations -Protonix 40mg IV BID -Supportive care -Sign off; consult as needed Avoid NSAIDs and anticoagulation EGD in 2 months Colonoscopy in 2 years History: Hb of 6.1 upon admission,1 month hx of black tarry stools, chronic aspirin use 2 units of RBCS transfused 09/28, 1 unit of RBCs transfused 09/29, and 1 unit of RBCs transfused 09/30 Hb stable Hemoccult performed by RN in ED on 09/28- positive EGD/colonoscopy demonstrated hiatal hernia, gastric ulcer, erosive gastritis and colon polyp Duo/stomach biopsy- Stomach, reactive/chemical gastropathy with intestinal metaplasia. Colon, sigmoid, adenomatous polyp HCV quant, less than 15 IUs/ ml, less than 1.18 log IUs/mlAlpha-feto protein wnl Elevated ferritin levels due to underlying cirrhosis most likely AMSA, AMA negative A1AT 148 Hemochromatosis workup negative (7) Hematuria ICD Codes: R31.9 - Hematuria, unspecified Plan: -UA 09/30 moderate occult blood, unlikely traumatic, patient has condom catheter -PSA wnl 0.15 -Renal US 10/04 demonstrated small nonobstructing 3mm calyceal calculus in the mid left kidney. 1.4 cm cyst in the inferior pole of the right kidney. -Urology consulted, recs appreciated Urologic impression: gross hematuria (now resolved) of indeterminate etiology; abnormal coagulation profile and thrombocytopenia likely contributing to the hematuria * manage conservatively for now * office follow up after hospital discharge when overall medical condition improved for cystoscopic evaluation [phone] * will be available as needed during present hospitalization (8) Hepatitis C ICD Codes: B19.20 - Unspecified viral hepatitis C without hepatic coma Plan: Patient reports history of Hep C. Patient reports being treated in the s. LFTs wnl. alpha fetoprotein wnl HCV quant, less than 15 IUs/ml, less than 1.18 log IUs/ml (9) Abnormal chest x-ray ICD Codes: R93.8 - Abnormal findings on diagnostic imaging of other specified body structures Plan: Impression: Heavy smoker. Mass 2.51 x 3.86 found on CXR. Small free- flowing right pleural effusion at the base. CT revealed dominant opacity seen on recent CXR represents loculated pleural effusion in the superior major fissure. Small b/l pleural effusions, mild consolidative infiltrates in the right lower lung, and right upper abdominal ascites. Calcified gallstones. S/p thoracentesis 10/01/2017- pleural fluid negative for malignancy (10) RALF (acute kidney injury) ICD Codes: N17.9 - Acute kidney failure, unspecified Status: Resolved Plan: -Resolved -Continue to monitor Impression: RALF secondary to dehydration BUN 28 and Cr 0.53 upon admission (11) Sacral wound ICD Codes: S31.000A - Unspecified open wound of lower back and pelvis without penetration into retroperitoneum, initial encounter Plan: Unstageable sacral wound, 3cm x 6cm Wound care consulted, recommendations appreciated 1) Cleanse sacral wound with normal saline,pat dry. 2) Apply skin prep to gibran wound 3) Santyl josé thick to wound bed 4) Cover with Maxorb 2 cut to fit. 5) Cover with dry dressing (boarder gauze) 6) Change dressing Daily (12) Nutrition, metabolism, and development symptoms ICD Codes: R63.8 - Other symptoms and signs concerning food and fluid intake Plan: Fluids: 50mls/hr NS due to poor appetite Diet: Regular Basic Electrolytes: monitor and replace as needed Other: Case management consulted GI ppx: Protonix 40mg IV q12h DVT ppx: SCDs See the residents documentation for details. I saw and evaluated the patient regarding the roland portions of this evaluation and agree with the residents findings and plans as written. I have reviewed the patients past medical/surgical and social histories and updated as appropriate. Parts of this note were created using [employer] voice recognition software program. While efforts were made to correct any mistakes made by this software, some mistakes, errors, and omissions may remain in the final note that were not caught when the note was originally created. Plan of care was discussed and agreed upon with the patient as specifically documented in the above note. An opportunity to ask questions with explanation was provided. Patient voiced understanding on all information reviewed and discussed. (Akshat Chen MD) Problem Qualifiers (1) GI bleed: Qualified Codes: K92.2 - Gastrointestinal hemorrhage, unspecified (2) Sacral wound: Qualified Codes: S31.000D - Unspecified open wound of lower back and pelvis without penetration into retroperitoneum, subsequent encounter Edilson Shoemaker MD R1 Oct 18, 2017 14:33 Akshat Chen MD Oct 19, 2017 13:02
--- NOTE | 2017-10-18 14:38 | HHI.PR ---
Subjective Remarks Keeps O2 off US of chest was done,and now on a NRB mask 60 % FIO2. Objective Vital Signs Date Time Temp Pulse Resp B/P (MAP) Pulse Ox O2 Delivery O2 Flow Rate FiO2 10/18/17 12:00 95.5 90 20 122/76 (91) 99 10/18/17 08:15 91 Venturi Mask 11.00 10/18/17 08:00 95.2 90 18 128/67 (87) 98 10/18/17 04:00 95.1 91 20 108/67 (81) 92 10/17/17 23:47 96.2 89 20 122/63 91 10/17/17 20:23 96.6 88 20 112/60 93 10/17/17 20:00 Simple Mask 11.00 Humidified 10/17/17 20:00 90 10/17/17 19:03 93 Simple Mask 10.00 10/17/17 17:26 95.8 104 21 122/74 93 10/17/17 16:57 95.9 110 22 113/68 97 10/17/17 16:00 95.9 110 22 113/68 (83) 97 I/O 10/17/17 10/17/17 10/17/17 10/18/17 10/18/17 10/18/17 07:00 15:00 23:00 07:00 15:00 23:00 Intake Total 0 ml 1100 ml 400 ml Output Total 750 ml 500 ml Balance -750 ml 600 ml 400 ml Intake Oral 0 ml 600 ml IV Total 100 ml Packed Cells 400 ml 400 ml Output Urine Total 750 ml 500 ml # Bowel Movements 1 Result Diagram: 10/18/17 0545 10/18/17 0545 Objective Remarks GENERAL: This is a moderately overweight elderly white male who is laying flat. HEENT: Head normocephalic. Pupils are reactive. Sclerae anicteric. Throat was dry. He has no inflammation. NECK: Supple. No bruits or thyroid enlargement. CHEST: Distant breath sounds over the left mid lower chest with occasional bibasilar crackles. No S3 gallop. ABDOMEN: Soft and protuberant. There is some tenderness in the upper abdomen and the liver is just felt below the right costal margin. The bowel sounds are active. EXTREMITIES: 2 + Edema. Mild edema with decreased peripheral pulses. Reflexes are 1+ with no gross motor deficits. SKIN: No lesions observed. Assessment and Plan Assessment and Plan IMPRESSION 1. Loculated left pleural effusion. Etiology undetermined. 2. History of hepatitis C 3. GI bleeding with anemia and gastric ulceration. 4. Atelectasis both bases with probable resolving pneumonia 5. COPD with emphysema and chronic bronchitis 6. Sepsis resolved 7. Pancytopenia. 8. Abdominal aortic aneurysm. PLan : 1. Add Aldactone 25 mg bid 2. Coag Profile today. 3. Will Plan thoracentesis on left 4. Wean O2 to Keep sat > 92. 5. CBC,BMP in am 6. Continue antibiotics per Yasemin Pillai MD Oct 18, 2017 14:38
[2017-10-18] MEDS ORDERED: HEPARIN SODIUM - SQ 10,000 UNITS/ML VIAL SQ ONE (15:30)
[2017-10-18] MEDS ORDERED: DRONABINOL 2.5 MG CAP PO SCH (16:00)
[2017-10-18] MEDS: SPIRONOLACTONE 25 MG TAB PO SCH (16:25)
--- NOTE | 2017-10-18 17:04 | RADRPT ---
EXAM DATE/TIME: 10/18/2017 16:17 [facility] COMPARISON: CHEST SINGLE AP, October 15, 2017, 11:07. CT PULMONARY ANGIOGRAM, October 16, 2017, 14:10. INDICATIONS : Post left thoracentesis. MEDICAL HISTORY : Hepatitis C. Tobacco use. Pleural effusion. Ascites. SURGICAL HISTORY : None. ENCOUNTER: Subsequent ACUITY: 2 weeks PAIN SCORE: 0/10 LOCATION: Bilateral chest FINDINGS: There is a moderate left pleural effusion, however smaller a small right pleural effusion is seen. Pe rivascular haziness is present probably pulmonary edema worse since the prior study a focal consolida tion is also seen in left lung base versus compressive collapse. The rest of the examination has not significantly changed. CONCLUSION: The left pleural effusion is smaller, however there appears to be pulmonary edema with bibasilar cons olidation worse on the left. Brian Flower MD on October 18, 2017 at 17:01 Board Certified Radiologist. This report was verified electronically.
[2017-10-18 17:40] LABS: TOTAL PROTEIN,PLEURAL FLUID 1.8 GM/DL
[2017-10-18 19:00] LABS: BICARBONATE 36.7 MEQ/L (21.0-32.0); CALCIUM 8.1 MG/DL (8.5-10.1); CREATININE 0.32 MG/DL (0.60-1.30)
[2017-10-18 19:29] LABS: PLEURAL FLUID LYMPHS 13 %; PLEURAL FLUID MESOTHELIAL 4 %; PLEURAL FLUID MONOS 9 %; PLEURAL FLUID POLYS (SEGS) 74 %; PLEURAL FLUID RBC 420 /MM3 (0-0); PLEURAL FLUID WBC 30 /MM3 (0-10)
--- NOTE | 2017-10-18 20:52 | MP ---
cc: Yasemin REDDING M.D. DATE OF SURGERY 10/18/17 PROCEDURE Left thoracentesis PREOPERATIVE DIAGNOSIS Left pleural effusion POSTOPERATIVE DIAGNOSIS Left pleural effusion. ANESTHESIA Xylocaine with SURGEON Dr. Janie Redding PROCEDURE AND FINDINGS The patient's left posterior back was prepped with Chlorhexidine solution. Following this Sterile drapes were applied. One percent Xylocaine was then injected in intercostal space in posterior axillary line after which a small incision made with scalpel blade. Following this,a 14 Welsh catheter was inserted into the pleural space. This was connected to a vacuum bottle and approximately 1300 mL of serosanguineous fluid was aspirated at which time the flow stopped. The patient tolerated the procedure well. MD ABRAM Campbell/ /3:10 PM /8:35 PM [facility]
[2017-10-18] MEDS: POTASSIUM CHLORIDE 20 MEQ CONTROLLED RELEASE TAB PO SCH (21:38)
[2017-10-18] MEDS: MIRTAZAPINE 15 MG TAB PO SCH (21:39)
[2017-10-19] VITALS (14 sets, daily range): BP systolic 94–119; BP diastolic 57–74; PULSE 69–110; RESP 15–26; TEMP 96.2–98; O2SAT 87–98
[2017-10-19] MEDS: PANTOPRAZOLE SODIUM 40 MG VIAL IV PUSH SCH ×2 (02:00→13:37)
[2017-10-19] MEDS: RESP: ALBUTEROL 2.5 MG/IPRATROPIUM 0.5 MG NEB (SCH) NEB (07:55)
[2017-10-19] MEDS: SODIUM CHLOR 0.9% 1000 ML INJ 1,000 ML IV SCH (08:36)
--- NOTE | 2017-10-19 08:54 | MB ---
cc: BRIAN ATKINS MD, FERNANDO B. MD HEYEN,ABDULLAHI Lima MD DATE OF CONSULTATION: 10/19/2017 REQUESTING PHYSICIAN: Dr. Gotti REASON FOR CONSULTATION: "A 66 year-old male with multiple medical comorbidies with depressed mood." HISTORY OF PRESENT ILLNESS: Mr. Friedman is a 66 year-old male of uncertain past psychiatric history, who presented initially on 09/28 with concern for GI bleed and anemia. The patient has been admitted to the medical floor and apparently was transferred to the ICU at one point. Reviewing the electronic medical record, I note that active medical issues appear to include hypoxia, bacteremia, pancytopenia, GI bleed, hematuria, among other issues. I see no previous psychiatric contact within our system. The patient is seen and examined. Chart reviewed. Case discussed with nurse on the floor. Per the nursing staff, the patient has been increasingly confused with episodes of mild agitation. He also has been taking poor p.o. On my evaluation today, the patient is frankly delirious. He exhibits utilization behavior and is responding to internal stimuli. For example, the patient appears to reach out multiple times for an object, perhaps a cup, which is not there. He endorses subjective confusion. He denies any paranoia. Mood is described as "okay." I can elicit no depressive or hypomanic/manic symptoms at this time. Sleep and appetite are reportedly subjectively fair. No suicidal or homicidal ideation verbalized. Psychiatric interview is somewhat limited because of the patient's acute confusional state. No visible complaints at this time. PAST PSYCHIATRIC HISTORY: The patient is likely an unreliable historian but denies a history of psychiatric diagnosis. He denies a history of inpatient or outpatient psychiatric treatment. He denies a history of suicide attempt. FAMILY HISTORY: The patient is unsure of his family psychiatric history. CHEMICAL DEPENDENCY HISTORY: The patient denies any abuse of drugs or alcohol. SOCIAL HISTORY: The patient reports that he lives with his and two children. He is college educated. He reports that he works or perhaps worked with "the [employer]." He denies any history. He denies any access to guns or firearms. PAST MEDICAL HISTORY: Includes issues noted above. See electronic medical record. MEDICATIONS: 1. Remeron 15 milligrams by mouth at bed time. 2. Metoprolol 12.5 milligrams twice daily by mouth. 3. Potassium chloride 20 milliequivalents twice daily by mouth. 4. DuoNeb every six hours while awake. 5. Marinol 2.5 milligrams twice daily. 6. Spironolactone 25 milligrams twice daily. 7. Ertapenem continuous infusion. 8. Folic acid. 9. Protonix 40 milligrams every 12 hours IV. 10. I note the patient also has Benadryl and morphine sulfate available as needed. ALLERGIES: No known allergies. REVIEW OF SYSTEMS: Limited somewhat by the patient's acute confusional state but except as noted in the HPI, this is negative. PHYSICAL EXAMINATION: VITAL SIGNS: Temperature is 96.2, pulse 106, respirations 18, blood pressure 96/57, pulse oximetry 96% on room air. The physical examination was completed by the primary team. On my examination today, the patient appears to be in no acute physical distress. No motor abnormalities noted. Laboratories reviewed. CBC reveals decreased white blood cell count at 2.6. This appears to come chiefly from lymphopenia and the ANC is within normal range. The patient also has normocytic anemia with a hemoglobin of 11.4. BMP reveals hypernatremia with a sodium of 146. LFTs were unremarkable when last checked. Vitamin B12 not low. Folate was somewhat low at 2.2 but this is being repleted. Hepatitis C viral RNA was undetectable. Laboratories otherwise have been reviewed. I see no head imaging on file. The patient's most recent EKG from the was read as sinus tachycardia with a decreased OH interval with a QTCH of 425 milliseconds. MENTAL STATUS EXAMINATION: The patient is in hospital attire. He is fairly disheveled. He is awake and alert but oriented to person only. His registration is 3/3 and his recall at three minutes is 2/3 but 0/3 at five minutes. He is able to spell the word world forward but gives it backwards at "world." He is over-inclusive on Vigilance A. He is able to name only one of two items. He is able to repeat a phrase, however. He gives the current president as "Me." He gives the most recent president before him as Saul Quan. Motor exam as above. Speech is rambling but within normal limits for rate, tone and volume. Language and fund of knowledge seem impaired. Focus and concentration impaired. Memory is impaired. Mood is okay and affect is flat. Thought process disorganized in the setting of his delirium. No delusional material elicited. He appears frankly internally stimulated as noted above. No suicidal or homicidal ideation, intent or plan. Insight and judgment are presently poor. ASSESSMENT AND PLAN: 1. Delirium due to general medical condition. F05. This is a 66 year-old male of uncertain past psychiatric history, who is presently admitted to the medical floor. The patient has had an extended hospital course and has multiple medical comorbidities many of which are likely contributing to greater or lesser extent to his acute confusional state. In addition to correcting the underlying causes of the patient's confusional state, as able, I recommend the following: --Consider initiating Haldol 0.5 to 1 milligram b.i.d. IV for the acute management of his delirium. This could be gently titrated to t.i.d. dosing if needed. Additional Haldol 0.5 milligrams t.i.d. p.r.n. could also be made available, either p.o. or IV for acute agitation. I would recommend checking another EKG for QTc if the patient requires large quantities of Haldol p.r.n. --Medication list reviewed. I would consider holding the patient's Remeron as it's antihistaminic effect may be worsening his mental status. I would also, in general, try to limit the use of opiates, anticholinergics, antihistamines, and benzodiazepines, all can worsen mental status. --Consider expanding differential for causes of delirium if patient remains acutely confused despite correction of existing medical issues, e.g. by checking TSH, HIV/RPR, ammonia, head imaging. --Frequent reorientation and early mobilization. --Aggressive management of any urinary retention or constipation. --I would limit the use of restraints and instead if needed, prefer a sitter for behavioral redirection. --Consider having family bring in familiar items from home and ensure that assistive devices such as eyeglasses and hearing aids are at the bedside if needed. --I will apprise Dr. Santos of the case once he returns to resume consultation tomorrow. Thank you very much for this consultation. Brian BRUCE /7:09 AM /7:22 AM [facility]
[2017-10-19] MEDS: SODIUM CHLORIDE 0.9% FLUSH 10 ML FLUSH IV FLUSH SCH ×2 (09:00→21:23)
--- NOTE | 2017-10-19 09:30 | RADRPT ---
EXAM DATE/TIME: 10/19/2017 08:28 [facility] COMPARISON: CTA THORACIC ABDOMINAL AORTA W 3D RECON, October 01, 2017, 17:11. INDICATIONS : Abdominal pain. MEDICAL HISTORY : Glasses. Dyspnea. Liver disease. Hepatitis. MRSA. SURGICAL HISTORY : None. ENCOUNTER: Subsequent ACUITY: 2 days PAIN SCORE: 0/10 LOCATION: Abdomen. MEASUREMENTS: LIVER: 15.2 cm length COMMON DUCT: 5 mm RIGHT KIDNEY: 9.6 x 5.3 x 4.7 cm LEFT KIDNEY: 10.6 x 6.2 x 5.2 cm SPLEEN: 13.4 cm length AORTA: 5.4cm maximal FINDINGS: LIVER: Liver is diffusely abnormal. It appears heterogeneous. There's a nodular surface. There is ascites th roughout the upper abdomen. COMMON DUCT: No intraluminal mass or stone visualized. GALLBLADDER: Multiple gallstones are seen. The gallbladder wall is thickened measuring at least 1 cm in thickness. PANCREAS: The pancreas is obscured by bowel gas. RIGHT KIDNEY: No hydronephrosis, stone or mass. LEFT KIDNEY: There is mild to moderate dilatation of the collecting system. SPLEEN: The spleen is diffusely enlarged. No focal splenic lesion is seen. AORTA: The distal abdominal aorta measures 5.4 cm in diameter. IVC: Within normal limits. CONCLUSION: 1. Cirrhotic appearing liver. There is ascites seen in the upper abdomen. 2. Gallstones and a thickened gallbladder wall. This can be correlated with any signs of cholecystiti s. Gallbladder wall thickening can be seen with hepatic disease. 3. 5.4 cm abdominal aortic aneurysm. 4. Mild to moderate dilatation of the left collecting system. 5. Splenomegaly. This may be secondary to portal hypertension and the patient's cirrhosis. Nicko Camacho MD on October 19, 2017 at 9:23 Board Certified Radiologist. This report was verified electronically.
[2017-10-19] MEDS: FUROSEMIDE 20 MG TAB PO SCH (09:47)
[2017-10-19] MEDS: FLUoxetine HCL 20 MG CAP PO SCH (09:47)
[2017-10-19] MEDS: METOPROLOL TARTRATE 25 MG TAB PO SCH ×2 (09:47→21:23)
[2017-10-19] MEDS: SPIRONOLACTONE 25 MG TAB PO SCH ×2 (09:48→17:08)
[2017-10-19] MEDS: POTASSIUM CHLORIDE 20 MEQ CONTROLLED RELEASE TAB PO SCH ×2 (09:49→21:23)
[2017-10-19] MEDS: FOLIC ACID 1 MG TAB PO SCH (09:49)
[2017-10-19] MEDS: COLLAGENASE OINT 30 GM TUBE TOPICAL SCH (09:50)
[2017-10-19] MEDS: NYSTATIN 100,000 U/GM PWD 15 GM BTL TOPICAL SCH ×2 (09:50→21:00)
[2017-10-19] MEDS: HALOPERIDOL LACTATE 5 MG/ML AMP IV PRN (09:55)
[2017-10-19 11:43] LABS: BASOPHIL % 0.5 % (0.0-2.0); EOSINOPHIL % 1.5 % (0.0-4.0); HEMATOCRIT 31.2 % (39.0-51.0); HEMOGLOBIN 10.4 GM/DL (13.0-17.0); LYMPHOCYTE # 0.7 TH/MM3 (1.0-4.8); MEAN CORPUSCULAR HEMOGLOBIN 30.5 PG (27.0-34.0); MEAN CORPUSCULAR HGB CONC 33.2 % (32.0-36.0); MEAN PLATELET VOLUME 7.9 FL (7.0-11.0); MONO % 11.3 % (0.0-8.0); MONOCYTE # 0.2 TH/MM3 (0-0.9); NEUT % 50.7 % (16.0-70.0); PLATELET COUNT 36 TH/MM3 (150-450); RED BLOOD COUNT 3.39 MIL/MM3 (4.50-5.90); RED CELL DISTRIBUTION WIDTH 17.9 % (11.6-17.2)
[2017-10-19 12:05] LABS: ALBUMIN 2.1 GM/DL (3.4-5.0); ALT (GPT) 13 U/L (12-78); AST (GOT) 17 U/L (15-37); BLOOD UREA NITROGEN 15 MG/DL (7-18); CALCIUM 8.1 MG/DL (8.5-10.1); CHLORIDE 106 MEQ/L (98-107); CREATININE 0.29 MG/DL (0.60-1.30); GLOMERULAR FILTRATION RATE 312 ML/MIN (>89); GLUCOSE,RANDOM 81 MG/DL (74-106); SODIUM (NA) 146 MEQ/L (136-145)
--- NOTE | 2017-10-19 12:11 | HHI.FPPN ---
Subjective Remarks Mr. Friedman was afebrile with mild tachycardia overnight (HR 70's -low 100's consistent with prior values). O2 saturations 92-95% on partial nonrebreather overnight. Patient had 300ml urinae output overnight per EMR. Per discussion with nursing staff, patient was increasingly confused overnight and was pulling out IV lines. Mr. Friedman reports that he is feeling ok this morning and that he is not in pain. Patient does not report worsening shortness of breath. In response to questions regarding orientation, patient reports that it is currently the month of October and the year of 2017. Patient referred to his family members being [place] the [place] Patient reported being agreeable to feeding tube if his appetite did not improve. (Keyon Jones MD, R3) Objective Vitals Vital Signs Date Time Temp Pulse Resp B/P (MAP) Pulse Ox O2 Delivery O2 Flow Rate FiO2 10/19/17 08:00 96.8 72 15 103/65 (78) 96 10/19/17 04:00 96.2 106 18 96/57 (70) 96 10/19/17 00:00 97.2 108 18 100/58 (72) 92 10/18/17 23:26 109 10/18/17 20:57 95 Partial Rebreather 12.00 10/18/17 20:45 92 Partial Non-Rebreather 12.00 10/18/17 20:00 96.9 109 18 100/59 (73) 95 10/18/17 16:30 95.9 87 18 129/76 (93) 100 10/18/17 16:15 95.8 90 18 125/75 (92) 100 10/18/17 16:00 95.2 81 20 113/62 (79) 98 10/18/17 16:00 95.2 81 20 113/62 (79) 98 10/18/17 12:00 95.5 90 20 122/76 (91) 99 I/O 10/18/17 10/18/17 10/18/17 10/19/17 10/19/17 10/19/17 07:00 15:00 23:00 07:00 15:00 23:00 Intake Total 400 ml 100 ml 1480 ml Output Total 300 ml Balance 400 ml 100 ml 1180 ml Intake Oral 480 ml IV Total 100 ml 1000 ml Packed Cells 400 ml Output Urine Total 300 ml # Voids 1 2 # Bowel Movements 1 2 (Keyon Jones MD, R3) Result Diagram: 10/19/17 1116 10/18/17 1810 Imaging Last Impressions Abdomen Ultrasound 10/19/17 0000 Signed Impressions: Service Date/Time: Thursday, October 19, 2017 08:28 - CONCLUSION: 1. Cirrhotic appearing liver. There is ascites seen in the upper abdomen. 2. Gallstones and a thickened gallbladder wall. This can be correlated with any signs of cholecystitis. Gallbladder wall thickening can be seen with hepatic disease. 3. 5.4 cm abdominal aortic aneurysm. 4. Mild to moderate dilatation of the left collecting system. 5. Splenomegaly. This may be secondary to portal hypertension and the patient's cirrhosis. Nicko Camacho MD Chest X-Ray 10/18/17 0000 Signed Impressions: Service Date/Time: Wednesday, October 18, 2017 16:17 - CONCLUSION: The left pleural effusion is smaller, however there appears to be pulmonary edema with bibasilar consolidation worse on the left. Brian Flower MD Chest Ultrasound 10/17/17 0000 Signed Impressions: Service Date/Time: Tuesday, October 17, 2017 22:23 - CONCLUSION: Moderate to large pleural effusion. Patient was marked for thoracentesis. Edilson Abreu MD CT Angiography 10/16/17 0000 Signed Impressions: Service Date/Time: September 14:10 - CONCLUSION: 1. No evidence of pulmonary embolism 2. Moderate to large left-sided pleural effusion with compressive atelectasis of the left lower lung 3. Small right-sided pleural effusion with atelectasis in the right lung base. 4. Ascites in the upper abdomen. Justo Florian MD Renal Ultrasound 10/04/17 0000 Signed Impressions: Service Date/Time: Wednesday, October 04, 2017 10:29 - CONCLUSION: 1. Small nonobstructing 3 mm calyceal calculus in the mid left kidney. 2. 1.4 cm cyst in the inferior pole of the right kidney. 3. Small amount of ascites. Rohan Leigh MD Aorta CTA 10/01/17 1556 Signed Impressions: Service Date/Time: Sunday, October 01, 2017 17:11 - CONCLUSION: 1. 7.3 cm infrarenal abdominal aortic aneurysm with laminated wall as described above. Findings suggest a contained rupture which may be chronic and possible associated aortic wall inflammation indicating aortitis. 2. Chronic liver disease characteristic of cirrhosis. 3. Splenomegaly 4. Cholelithiasis 5. Moderate ascites 6. No evidence of portal vein thrombosis or Budd-Chiari syndrome. 7. COPD with bibasilar airspace disease and parapneumonic effusions. 1. Herve Berumen MD Thoracentesis Ultrasound 10/01/17 0000 Signed Impressions: Service Date/Time: Sunday, October 01, 2017 11:27 - CONCLUSION: Uncomplicated ultrasound guided thoracentesis. Marc Alfredo MD Cyst Biopsy Asp-Paracentesis US 10/01/17 0000 Signed Impressions: Service Date/Time: Sunday, October 01, 2017 09:53 - CONCLUSION: Uncomplicated ultrasound guided paracentesis. Marc Alfredo MD Abdomen/Pelvis CT 09/30/17 0000 Signed Impressions: Service Date/Time: Sunday, October 01, 2017 02:21 - CONCLUSION: 1. 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 2. Moderate pleural effusions and moderate amount of abdominal pelvic ascites. 3. 2 calcified gallstones. David Blunt MD Chest CT 09/28/17 0000 Signed Impressions: Service Date/Time: Friday, September 29, 2017 01:23 - CONCLUSION: 1. The dominant opacity seen on recent chest x-ray represents loculated pleural effusion in the superior major fissure. 2. Small bilateral pleural effusions, mild consolidative infiltrates in the right lower lung, and right upper abdominal ascites. 3. Calcified gallstones. David Blunt MD Objective Remarks CONSTITUTIONAL/GEN: Cachectic male, lying in bed PSYCH/NEURO: Somewhat oriented but confused/delirious (close to month/year but thinks family is in [place]). Flat affect. No CN defects. No peripheral motor/sensory defects. SKIN: Maculopapular rash extending from mid back along the left axilla ( visualized by other providers on team) ENT: Mouth and pharynx show moist MM LUNGS: Decreased breath sounds bilaterally; normal rate. Patient intermittently removing Venti mask CARDIOVASCULAR: Regular rhythm; mild tachycardia. No LE edema GI/ABD: soft, normal BS; no pain to palpation : catheter in place; Dark urine in schaefer bag (Keyon Jones MD, R3) A/P Assessment and Plan 66 yr old M Hep C, hx of heavy smoking (2ppd for 61 yrs), and chronic aspirin use presented to the ED with anemia and black tarry stools secondary to suspected GI bleed. Patient transferred to ICU 09/30 for ESBL E.coli sepsis. Patient hemodynamically stable for transfer to med/surg 10/03. Patient confused/ delirious with hypercarbia 10/19; transferred to ICU for BIPAP. Discharge Planning Case Management to assist with SNF placement Pending infection workup and hematology clearance (Keyon Jones MD, R3) Problem List: (1) Hypoxia ICD Codes: R09.02 - Hypoxemia Status: Acute Plan: 10/19: Patient delirious, removing Venti mask. O2 saturations 92-95% on partial nonrebreather overnight -Will check Venous blood gas -pH 7.4, pCO2 60, pO2 24, HCO3 37 -Pulmonology consulted, follow-up recommendations * Ultrasound of left chest * Thoracentesis if significant fluid present * Anticoagulation to be held * Incentive spirometry * DuoNeb 4 times a day, when necessary -Based on VBG results and respiratory therapy assessment; will transfer patient to ICU for monitoring on BIPAP Impression: Patient has been on substantial O2 requirement via NC since admission; recently hypoxia 10/15 with O2 saturations in upper 70's. Associated with anemia. Decreased breath sounds on exam; no wheezing. No symptoms appreciated by patient, no tachypnea. History of tobacco abuse. CT revealed dominant opacity seen on recent CXR represents loculated pleural effusion in the superior major fissure. Small b/l pleural effusions, mild consolidative infiltrates in the right lower lung, and right upper abdominal ascites. Calcified gallstones. Echo on 10/01 shows EF of 60-65%, normal LV systolic function S/p thoracentesis 10/01/2017- pleural fluid negative for malignancy CXR (10/15): no change; small to moderate left effusion (no interval change from 10/12 (pulmonary vascular congestion, L sided effusion)) ABG (10/15): pH 7.42, pCO2 57, pO2 55, O2 sat 85% ABG (10/17): pH 7.44, PCO2 56, PO2 71 CTA (10/16/2017): without evidence of PE, left-sided pleural effusion, ascites noted s/p transfusion (8 total U pRBC; most recently 2 U 10/17/2017) s/p L thoracentesis 10/18- 1300ml serosanguineous fluid aspirated (2) Delirium ICD Codes: R41.0 - Disorientation, unspecified Status: Acute Plan: -Check metabolic panel -Check Ammonia -Check venous blood gas -Continue O2 supplementation -Hold Dronabinol 2.5mg BID and Remeron while delirious -Psychiatry consulted -Suspect delirium secondary to general medical condition -Consider initiating Haldol BID with titration to TID if needed; additional PRN Haldol for acute agitation; EKG if needed to assess QTC -Frequent reorientation/mobilization -Aggressive management of retention or constipation -Sitter preferred over restraints Impression: Worsening mental status per nursing staff with increased confusion. Patient somewhat disoriented on exam; no focal neurologic deficits. PMH alcholism, liver disease, COPD (3) Bacteremia ICD Codes: R78.81 - Bacteremia Status: Acute Plan: ID consulted, appreciate recommendations * E.coli ESBL sepsis, source is likely GI, questionable SBP * Continue Ertapenem 1000 mg IV q24h (10/02) x 6-8 weeks per ID * *Will hold 10/19 due to concern for worsening rash vs petechiae History: Transferred to med/surg floor 10/03; previously transferred to ICU secondary to ESBL sepsis. Patient met sepsis criteria 09/29 due to tachycardic at 95-113 and hypotension 86/53 Lactic acid 1.4 09/29, Repeat lactic acid 1.5 s/p 500cc bolus of NS, MIVF 140mls/hr 09/29 * CT abd/pelvis w/o contrast done 09/30 revealed moderate size left pleural effusion, ascites, 5cm infrarenal abdominal aortic aneurysm and mesenteric stranding. * CTA 10/01 7.3 cm AAA, contained rupture, cirrhosis, splenomegaly, cholelithiasis, moderate ascites, no evident of protal vein thrombosis or Budd- Chiari syndrome, COPD with bibasilar airspace disease and parapneumonic effusions * 2-D echo - 60-65% EF * Left pleural effusion- thoracentesis with removal of 750 cc of dark yellow fluid. Fluid appeared transudative. * Ascites- paracentesis with removal of 1100 cc of yellow fluids. This appeared due to portal hypertension. * Possibility of aortoenteric fistula Cultures: Blood- Cultures 10/10 NGTD Staph hominis 10/06 (pansensitive) ESBL E Coli 09/29 (resistant, to Ampicillin, Unasyn, Cefazolin, Cefepime, Cefuroxime, Levofloxacin) Antibiotic history: Vancomycin (restarted 10/07-10/11) Vancomycin 1,250mg IV q12h (09/29-10/01) Zosyn 4.5 gm IV q6h (started 09/30-09/22) Azithromycin 250mg PO daily (10/01-10/04) (4) Pancytopenia ICD Codes: D61.818 - Other pancytopenia Plan: 10/19: Hgb 10.4. No reported bleeding Hem/Onc consulted, appreciate recs -Neupogen PRN per Hematology -Monitor CBC and transfuse as needed -Continue daily folate Impression: Pancytopenia; failure to thrive. Per Hem Onc, treated in / cleared but titers elevated during hospitalization. WBC down since admission, Hb stable, plts trending down since admission A/P CT and CTA - pelvic ascites, 7.3cm infrarenal AAA, calcified gallstones, moderate pleural effusions, cirrhosis, CTA S/P thoracentesis, paracentesis Transfusion history: 8 total U pRBC (most recently 2 U pRBC given 10/17), 1 U FFP, 1 U platelets transfused (5) Rash and nonspecific skin eruption ICD Codes: R21 - Rash and other nonspecific skin eruption Status: Acute Plan: 10/19: Rash unchanged from 10/18. -Benadryl as needed -We will contact infectious disease to rule out antibiotic side effect, follow- up recommendations -Monitor for improvement or change Impression: Rash extending from patient's back, moderately in left axilla, mildly on left chest. Noted on 10/18. Suspect petechiae (6) AAA (abdominal aortic aneurysm) ICD Codes: I71.4 - Abdominal aortic aneurysm, without rupture Plan: CT abd/pelvis w/o contrast done 09/30 5cm infrarenal abdominal aortic aneurysm Aorta CTA 7.3 cm infrarenal AAA with laminated wall, contained rupture which may be chronic and possible associated aortic wall inflammation indicating aortitis Vascular surgery consulted, appreciate recs [facility] confirms that no intervention at this time No intervention for AAA until infection cleared -Continue to follow at this time -Add metoprolol tartrate 12.5mg BID for tachycardia (7) GI bleed ICD Codes: K92.2 - Gastrointestinal hemorrhage, unspecified Status: Resolved Plan: GI consulted for mesenteric stranding and ascites, appreciate recommendations -Protonix 40mg IV BID -Supportive care -Sign off; consult as needed Avoid NSAIDs and anticoagulation EGD in 2 months Colonoscopy in 2 years History: Hb of 6.1 upon admission,1 month hx of black tarry stools, chronic aspirin use Hemoccult performed by RN in ED on 09/28- positive EGD/colonoscopy demonstrated hiatal hernia, gastric ulcer, erosive gastritis and colon polyp Duo/stomach biopsy- Stomach, reactive/chemical gastropathy with intestinal metaplasia. Colon, sigmoid, adenomatous polyp HCV quant, less than 15 IUs/ ml, less than 1.18 log IUs/mlAlpha-feto protein wnl Elevated ferritin levels due to underlying cirrhosis most likely AMSA, AMA negative A1AT 148 Hemochromatosis workup negative Transfusion history: 8 total U pRBC (most recently 2 U pRBC given 10/17), 1 U FFP, 1 U platelets transfused (8) Hematuria ICD Codes: R31.9 - Hematuria, unspecified Status: Resolved Plan: -UA 09/30 moderate occult blood, unlikely traumatic, patient has condom catheter -PSA wnl 0.15 -Renal US 10/04 demonstrated small nonobstructing 3mm calyceal calculus in the mid left kidney. 1.4 cm cyst in the inferior pole of the right kidney. -Urology consulted, recs appreciated Urologic impression: gross hematuria (now resolved) of indeterminate etiology; abnormal coagulation profile and thrombocytopenia likely contributing to the hematuria * manage conservatively for now * office follow up after hospital discharge when overall medical condition improved for cystoscopic evaluation [phone] * will be available as needed during present hospitalization (9) Hepatitis C ICD Codes: B19.20 - Unspecified viral hepatitis C without hepatic coma Status: Acute Plan: -Will assess peritoneal fluid -Continue to monitor LFT's Impression: Patient reports history of Hep C. Patient reports being treated in the s. LFTs wnl. alpha fetoprotein wnl HCV quant, less than 15 IUs/ml, less than 1.18 log IUs/ml A/P CT with moderate pelvic ascites, calcified gallstones. Abdominal US- cirrhotic appearing liver; ascites in upper abdomen. Gallstones and thickened gallbladder wall. Splenomegaly; assumed secondary to portal hypertension/cirrhosis (10) Abnormal chest x-ray ICD Codes: R93.8 - Abnormal findings on diagnostic imaging of other specified body structures Plan: Impression: Heavy smoker. Mass 2.51 x 3.86 found on CXR. Small free- flowing right pleural effusion at the base. CT revealed dominant opacity seen on recent CXR represents loculated pleural effusion in the superior major fissure. Small b/l pleural effusions, mild consolidative infiltrates in the right lower lung, and right upper abdominal ascites. Calcified gallstones. S/p thoracentesis 10/01/2017- pleural fluid negative for malignancy (11) Decreased appetite ICD Codes: R63.0 - Anorexia Status: Acute Plan: -Will attempt to initiate tube feedings -Continue to monitor intake -Psychiatry consulted -Hold Dronabinol 2.5mg BID and Remeron while delirious -Will start Prozac 20mg daily Impression: Lack of oral intake during hospitalization in association with flat affect. Suspect possible depression as etiology. Patient agreeable to tube feedings (12) RALF (acute kidney injury) ICD Codes: N17.9 - Acute kidney failure, unspecified Status: Resolved Plan: -Resolved -Continue to monitor Impression: RALF secondary to dehydration BUN 28 and Cr 0.53 upon admission (13) Sacral wound ICD Codes: S31.000A - Unspecified open wound of lower back and pelvis without penetration into retroperitoneum, initial encounter Plan: Unstageable sacral wound, 3cm x 6cm Wound care consulted, recommendations appreciated 1) Cleanse sacral wound with normal saline,pat dry. 2) Apply skin prep to gibran wound 3) Santyl josé thick to wound bed 4) Cover with Maxorb 2 cut to fit. 5) Cover with dry dressing (boarder gauze) 6) Change dressing Daily (14) Nutrition, metabolism, and development symptoms ICD Codes: R63.8 - Other symptoms and signs concerning food and fluid intake Plan: Fluids: 105mls/hr NS due to poor appetite Diet: Lack of PO intake; Regular Basic diet -Will plan to initiate tube feedings Electrolytes: monitor and replace as needed Other: Case management consulted GI ppx: Protonix 40mg IV q12h DVT ppx: SCDs (Keyon Jones MD, R3) Problem List: (1) Hypoxia ICD Codes: R09.02 - Hypoxemia Status: Acute Plan: 10/19: Patient delirious, removing Venti mask. O2 saturations 92-95% on partial nonrebreather overnight -Will check Venous blood gas -pH 7.4, pCO2 60, pO2 24, HCO3 37 -Pulmonology consulted, follow-up recommendations * Ultrasound of left chest * Thoracentesis if significant fluid present * Anticoagulation to be held * Incentive spirometry * DuoNeb 4 times a day, when necessary -Based on VBG results and respiratory therapy assessment; will transfer patient to ICU for monitoring on BIPAP Impression: Patient has been on substantial O2 requirement via NC since admission; recently hypoxia 10/15 with O2 saturations in upper 70's. Associated with anemia. Decreased breath sounds on exam; no wheezing. No symptoms appreciated by patient, no tachypnea. History of tobacco abuse. CT revealed dominant opacity seen on recent CXR represents loculated pleural effusion in the superior major fissure. Small b/l pleural effusions, mild consolidative infiltrates in the right lower lung, and right upper abdominal ascites. Calcified gallstones. Echo on 10/01 shows EF of 60-65%, normal LV systolic function S/p thoracentesis 10/01/2017- pleural fluid negative for malignancy CXR (10/15): no change; small to moderate left effusion (no interval change from 10/12 (pulmonary vascular congestion, L sided effusion)) ABG (10/15): pH 7.42, pCO2 57, pO2 55, O2 sat 85% ABG (10/17): pH 7.44, PCO2 56, PO2 71 CTA (10/16/2017): without evidence of PE, left-sided pleural effusion, ascites noted s/p transfusion (8 total U pRBC; most recently 2 U 10/17/2017) s/p L thoracentesis 10/18- 1300ml serosanguineous fluid aspirated (2) Delirium ICD Codes: R41.0 - Disorientation, unspecified Status: Acute Plan: -Check metabolic panel -Check Ammonia -Check venous blood gas -Continue O2 supplementation -Hold Dronabinol 2.5mg BID and Remeron while delirious -Psychiatry consulted -Suspect delirium secondary to general medical condition -Consider initiating Haldol BID with titration to TID if needed; additional PRN Haldol for acute agitation; EKG if needed to assess QTC -Frequent reorientation/mobilization -Aggressive management of retention or constipation -Sitter preferred over restraints Impression: Worsening mental status per nursing staff with increased confusion. Patient somewhat disoriented on exam; no focal neurologic deficits. PMH alcholism, liver disease, COPD (3) Bacteremia ICD Codes: R78.81 - Bacteremia Status: Acute Plan: ID consulted, appreciate recommendations * E.coli ESBL sepsis, source is likely GI, questionable SBP * Continue Ertapenem 1000 mg IV q24h (10/02) x 6-8 weeks per ID * *Will hold 10/19 due to concern for worsening rash vs petechiae History: Transferred to med/surg floor 10/03; previously transferred to ICU secondary to ESBL sepsis. Patient met sepsis criteria 09/29 due to tachycardic at 95-113 and hypotension 86/53 Lactic acid 1.4 09/29, Repeat lactic acid 1.5 s/p 500cc bolus of NS, MIVF 140mls/hr 09/29 * CT abd/pelvis w/o contrast done 09/30 revealed moderate size left pleural effusion, ascites, 5cm infrarenal abdominal aortic aneurysm and mesenteric stranding. * CTA 10/01 7.3 cm AAA, contained rupture, cirrhosis, splenomegaly, cholelithiasis, moderate ascites, no evident of protal vein thrombosis or Budd- Chiari syndrome, COPD with bibasilar airspace disease and parapneumonic effusions * 2-D echo - 60-65% EF * Left pleural effusion- thoracentesis with removal of 750 cc of dark yellow fluid. Fluid appeared transudative. * Ascites- paracentesis with removal of 1100 cc of yellow fluids. This appeared due to portal hypertension. * Possibility of aortoenteric fistula Cultures: Blood- Cultures 10/10 NGTD Staph hominis 10/06 (pansensitive) ESBL E Coli 09/29 (resistant, to Ampicillin, Unasyn, Cefazolin, Cefepime, Cefuroxime, Levofloxacin) Antibiotic history: Vancomycin (restarted 10/07-10/11) Vancomycin 1,250mg IV q12h (09/29-10/01) Zosyn 4.5 gm IV q6h (started 09/30-09/22) Azithromycin 250mg PO daily (10/01-10/04) (4) Pancytopenia ICD Codes: D61.818 - Other pancytopenia Plan: 10/19: Hgb 10.4. No reported bleeding Hem/Onc consulted, appreciate recs -Neupogen PRN per Hematology -Monitor CBC and transfuse as needed -Continue daily folate Impression: Pancytopenia; failure to thrive. Per Hem Onc, treated in / cleared but titers elevated during hospitalization. WBC down since admission, Hb stable, plts trending down since admission A/P CT and CTA - pelvic ascites, 7.3cm infrarenal AAA, calcified gallstones, moderate pleural effusions, cirrhosis, CTA S/P thoracentesis, paracentesis Transfusion history: 8 total U pRBC (most recently 2 U pRBC given 10/17), 1 U FFP, 1 U platelets transfused (5) Rash and nonspecific skin eruption ICD Codes: R21 - Rash and other nonspecific skin eruption Status: Acute Plan: 10/19: Rash unchanged from 10/18. -Benadryl as needed -We will contact infectious disease to rule out antibiotic side effect, follow- up recommendations -Monitor for improvement or change Impression: Rash extending from patient's back, moderately in left axilla, mildly on left chest. Noted on 10/18. Suspect petechiae (6) AAA (abdominal aortic aneurysm) ICD Codes: I71.4 - Abdominal aortic aneurysm, without rupture Plan: CT abd/pelvis w/o contrast done 09/30 5cm infrarenal abdominal aortic aneurysm Aorta CTA 7.3 cm infrarenal AAA with laminated wall, contained rupture which may be chronic and possible associated aortic wall inflammation indicating aortitis Vascular surgery consulted, appreciate recs [facility] confirms that no intervention at this time No intervention for AAA until infection cleared -Continue to follow at this time -Add metoprolol tartrate 12.5mg BID for tachycardia (7) GI bleed ICD Codes: K92.2 - Gastrointestinal hemorrhage, unspecified Status: Resolved Plan: GI consulted for mesenteric stranding and ascites, appreciate recommendations -Protonix 40mg IV BID -Supportive care -Sign off; consult as needed Avoid NSAIDs and anticoagulation EGD in 2 months Colonoscopy in 2 years History: Hb of 6.1 upon admission,1 month hx of black tarry stools, chronic aspirin use Hemoccult performed by RN in ED on 09/28- positive EGD/colonoscopy demonstrated hiatal hernia, gastric ulcer, erosive gastritis and colon polyp Duo/stomach biopsy- Stomach, reactive/chemical gastropathy with intestinal metaplasia. Colon, sigmoid, adenomatous polyp HCV quant, less than 15 IUs/ ml, less than 1.18 log IUs/mlAlpha-feto protein wnl Elevated ferritin levels due to underlying cirrhosis most likely AMSA, AMA negative A1AT 148 Hemochromatosis workup negative Transfusion history: 8 total U pRBC (most recently 2 U pRBC given 10/17), 1 U FFP, 1 U platelets transfused (8) Hematuria ICD Codes: R31.9 - Hematuria, unspecified Status: Resolved Plan: -UA 09/30 moderate occult blood, unlikely traumatic, patient has condom catheter -PSA wnl 0.15 -Renal US 10/04 demonstrated small nonobstructing 3mm calyceal calculus in the mid left kidney. 1.4 cm cyst in the inferior pole of the right kidney. -Urology consulted, recs appreciated Urologic impression: gross hematuria (now resolved) of indeterminate etiology; abnormal coagulation profile and thrombocytopenia likely contributing to the hematuria * manage conservatively for now * office follow up after hospital discharge when overall medical condition improved for cystoscopic evaluation [phone] * will be available as needed during present hospitalization (9) Hepatitis C ICD Codes: B19.20 - Unspecified viral hepatitis C without hepatic coma Status: Acute Plan: -Will assess peritoneal fluid -Continue to monitor LFT's Impression: Patient reports history of Hep C. Patient reports being treated in the s. LFTs wnl. alpha fetoprotein wnl HCV quant, less than 15 IUs/ml, less than 1.18 log IUs/ml A/P CT with moderate pelvic ascites, calcified gallstones. Abdominal US- cirrhotic appearing liver; ascites in upper abdomen. Gallstones and thickened gallbladder wall. Splenomegaly; assumed secondary to portal hypertension/cirrhosis (10) Abnormal chest x-ray ICD Codes: R93.8 - Abnormal findings on diagnostic imaging of other specified body structures Plan: Impression: Heavy smoker. Mass 2.51 x 3.86 found on CXR. Small free- flowing right pleural effusion at the base. CT revealed dominant opacity seen on recent CXR represents loculated pleural effusion in the superior major fissure. Small b/l pleural effusions, mild consolidative infiltrates in the right lower lung, and right upper abdominal ascites. Calcified gallstones. S/p thoracentesis 10/01/2017- pleural fluid negative for malignancy (11) Decreased appetite ICD Codes: R63.0 - Anorexia Status: Acute Plan: -Will attempt to initiate tube feedings -Continue to monitor intake -Psychiatry consulted -Hold Dronabinol 2.5mg BID and Remeron while delirious -Will start Prozac 20mg daily Impression: Lack of oral intake during hospitalization in association with flat affect. Suspect possible depression as etiology. Patient agreeable to tube feedings (12) RALF (acute kidney injury) ICD Codes: N17.9 - Acute kidney failure, unspecified Status: Resolved Plan: -Resolved -Continue to monitor Impression: RALF secondary to dehydration BUN 28 and Cr 0.53 upon admission (13) Sacral wound ICD Codes: S31.000A - Unspecified open wound of lower back and pelvis without penetration into retroperitoneum, initial encounter Plan: Unstageable sacral wound, 3cm x 6cm Wound care consulted, recommendations appreciated 1) Cleanse sacral wound with normal saline,pat dry. 2) Apply skin prep to gibran wound 3) Santyl josé thick to wound bed 4) Cover with Maxorb 2 cut to fit. 5) Cover with dry dressing (boarder gauze) 6) Change dressing Daily (14) Nutrition, metabolism, and development symptoms ICD Codes: R63.8 - Other symptoms and signs concerning food and fluid intake Plan: Fluids: 105mls/hr NS due to poor appetite Diet: Lack of PO intake; Regular Basic diet -Will plan to initiate tube feedings Electrolytes: monitor and replace as needed Other: Case management consulted GI ppx: Protonix 40mg IV q12h DVT ppx: SCDs See the residents documentation for details. I saw and evaluated the patient regarding the roland portions of this evaluation and agree with the residents findings and plans as written. I have reviewed the patients past medical/surgical and social histories and updated as appropriate. Parts of this note were created using [employer] voice recognition software program. While efforts were made to correct any mistakes made by this software, some mistakes, errors, and omissions may remain in the final note that were not caught when the note was originally created. Plan of care was discussed and agreed upon with the patient as specifically documented in the above note. An opportunity to ask questions with explanation was provided. Patient voiced understanding on all information reviewed and discussed. (Akshat Chen MD) Problem Qualifiers (1) GI bleed: Qualified Codes: K92.2 - Gastrointestinal hemorrhage, unspecified (2) Sacral wound: Qualified Codes: S31.000D - Unspecified open wound of lower back and pelvis without penetration into retroperitoneum, subsequent encounter Keyon Jones MD, R3 Oct 19, 2017 12:11 Akshat Chen MD Oct 21, 2017 12:56
[2017-10-19 12:19] LABS: TOXIC GRANULATION 2+ (NORMAL)
[2017-10-19 12:31] LABS: ALKALINE PHOSPHATASE 91 U/L (45-117); TOTAL BILIRUBIN ADULT 1.8 MG/DL (0.2-1.0); TOTAL PROTEIN 6.3 GM/DL (6.4-8.2)
--- NOTE | 2017-10-19 17:09 | RADRPT ---
EXAM DATE/TIME: 10/19/2017 16:12 [facility] COMPARISON: CHEST SINGLE AP, October 18, 2017, 16:17. INDICATIONS : Shortness of breath. MEDICAL HISTORY : Dyspnea. Liver disease. Hepatitis. MRSA. SURGICAL HISTORY : None. ENCOUNTER: Subsequent ACUITY: 2 weeks PAIN SCORE: 0/10 LOCATION: Bilateral chest FINDINGS: Left basilar opacity is present may be due to a combination of consolidation and or pleural effusion. Tiny right pleural effusion is also seen. There is worsening pulmonary edema particularly in the lef t chest since the prior exam. Mild right lung base atelectasis and/or infiltrate is seen. CONCLUSION: Slight worsening pulmonary edema, otherwise not significantly changed. Brian Flower MD on October 19, 2017 at 17:07 Board Certified Radiologist. This report was verified electronically.
[2017-10-19] MEDS ORDERED: FUROSEMIDE 20 MG/2 ML VIAL IV PUSH ONE (17:30)
--- NOTE | 2017-10-19 17:31 | HHI.PR ---
Subjective Remarks Keeps O2 off and thoracentesis was done,and now on a high Flow O2 cannula. Has fluid overload. Objective Vital Signs Date Time Temp Pulse Resp B/P (MAP) Pulse Ox O2 Delivery O2 Flow Rate FiO2 10/19/17 16:00 96 10/19/17 14:00 97.8 102 21 94/71 (79) 89 10/19/17 14:00 102 10/19/17 14:00 95 Nasal Cannula 70 10/19/17 12:00 96.4 69 18 102/68 (79) 97 10/19/17 08:00 96.8 72 15 103/65 (78) 96 10/19/17 07:55 87 21 10/19/17 04:00 96.2 106 18 96/57 (70) 96 10/19/17 00:00 97.2 108 18 100/58 (72) 92 10/18/17 23:26 109 10/18/17 20:57 95 Partial Rebreather 12.00 10/18/17 20:45 92 Partial Non-Rebreather 12.00 10/18/17 20:00 96.9 109 18 100/59 (73) 95 I/O 10/18/17 10/18/17 10/18/17 10/19/17 10/19/17 10/19/17 07:00 15:00 23:00 07:00 15:00 23:00 Intake Total 400 ml 100 ml 1480 ml Output Total 300 ml Balance 400 ml 100 ml 1180 ml Intake Oral 480 ml IV Total 100 ml 1000 ml Packed Cells 400 ml Output Urine Total 300 ml # Voids 1 2 # Bowel Movements 1 2 Result Diagram: 10/19/17 1116 10/19/17 1116 Objective Remarks GENERAL: This is a moderately overweight elderly white male who is laying flat. HEENT: Head normocephalic. Pupils are reactive. Sclerae anicteric. Throat was dry. He has no inflammation. NECK: Supple. No bruits or thyroid enlargement. CHEST: Distant breath sounds over the left mid lower chest with occasional bibasilar crackles. No S3 gallop. ABDOMEN: Soft and protuberant. There is some tenderness in the upper abdomen and the liver is just felt below the right costal margin. The bowel sounds are active. EXTREMITIES: 2 + Edema with decreased peripheral pulses. Reflexes are 1+ with no gross motor deficits. SKIN: No lesions observed. Assessment and Plan Assessment and Plan IMPRESSION 1. Loculated left pleural effusion. Etiology undetermined. 2. History of hepatitis C 3. GI bleeding with anemia and gastric ulceration. 4. Atelectasis both bases with probable resolving pneumonia 5. COPD with emphysema and chronic bronchitis 6. Sepsis resolved 7. Pancytopenia. 8. Abdominal aortic aneurysm. PLan : 1. Add Aldactone 25 mg bid 2. Stop IV fluids. 3. Add Lasix 20 mg IV daily. 4. Wean O2 to Keep sat > 92. 5. CBC,BMP in am 6. Continue antibiotics per ID 7. Chest Xray in am Yasemin Redding MD Oct 19, 2017 17:31
[2017-10-19 17:39] LABS: INTERNATIONAL NORMALIZED RATIO 1.5 RATIO; PROTHROMBIN TIME - PATIENT 15.5 SEC (9.8-11.6)
[2017-10-20] VITALS (18 sets, daily range): BP systolic 85–132; BP diastolic 52–91; PULSE 80–105; RESP 13–23; TEMP 97.5–98; O2SAT 86–98
[2017-10-20] MEDS: PANTOPRAZOLE SODIUM 40 MG VIAL IV PUSH SCH ×2 (03:43→14:00)
[2017-10-20 08:20] LABS: AUTOMATED NEUTROPHIL # 0.9 TH/MM3 (1.8-7.7); BASOPHIL % 0.4 % (0.0-2.0); EOSINOPHIL % 2.4 % (0.0-4.0); HEMATOCRIT 31.5 % (39.0-51.0); HEMOGLOBIN 10.5 GM/DL (13.0-17.0); LYMPH % 36.1 % (9.0-44.0); LYMPHOCYTE # 0.6 TH/MM3 (1.0-4.8); MEAN CELL VOLUME 92.1 FL (80.0-100.0); MEAN CORPUSCULAR HEMOGLOBIN 30.8 PG (27.0-34.0); MEAN CORPUSCULAR HGB CONC 33.4 % (32.0-36.0); MEAN PLATELET VOLUME 8.2 FL (7.0-11.0); MONO % 6.4 % (0.0-8.0); MONOCYTE # 0.1 TH/MM3 (0-0.9); NEUT % 54.7 % (16.0-70.0); PLATELET COUNT 32 TH/MM3 (150-450); RED BLOOD COUNT 3.42 MIL/MM3 (4.50-5.90); RED CELL DISTRIBUTION WIDTH 17.8 % (11.6-17.2); WHITE BLOOD COUNT 1.6 TH/MM3 (4.0-11.0)
[2017-10-20 08:48] LABS: AST (GOT) 18 U/L (15-37); BICARBONATE 36.5 MEQ/L (21.0-32.0); BLOOD UREA NITROGEN 15 MG/DL (7-18); CALCIUM 8.2 MG/DL (8.5-10.1); CHLORIDE 103 MEQ/L (98-107); GLOMERULAR FILTRATION RATE 300 ML/MIN (>89); GLUCOSE,RANDOM 89 MG/DL (74-106); SODIUM (NA) 144 MEQ/L (136-145)
[2017-10-20 08:51] LABS: ALKALINE PHOSPHATASE 83 U/L (45-117); ALT (GPT) 9 U/L (12-78); TOTAL BILIRUBIN ADULT 1.6 MG/DL (0.2-1.0); TOTAL PROTEIN 6.1 GM/DL (6.4-8.2)
[2017-10-20] MEDS: POTASSIUM CHLORIDE 20 MEQ CONTROLLED RELEASE TAB PO SCH ×3 (09:00→22:45)
[2017-10-20] MEDS: METOPROLOL TARTRATE 25 MG TAB PO SCH ×2 (09:00→22:45)
[2017-10-20] MEDS ORDERED: FUROSEMIDE 20 MG TAB PO SCH (09:00)
[2017-10-20 09:23] LABS: CORRECTED NUCLEATED RBC 1 /100 WBC (0-0); LYMPHOCYTES 22 % (9-44); MONOCYTES 13 % (0-8); NUCLEATED RED BLOOD CELL 1 (0-0); POLYS (SEG NEUTROPHILS) 62 % (16-70); TOXIC VACUOLATION PRESENT (NONE SEEN)
[2017-10-20] MEDS: FLUoxetine HCL 20 MG CAP PO SCH (09:46)
[2017-10-20] MEDS: FUROSEMIDE 20 MG TAB PO SCH (09:47)
[2017-10-20] MEDS: FOLIC ACID 1 MG TAB PO SCH (09:47)
[2017-10-20] MEDS: SPIRONOLACTONE 25 MG TAB PO SCH ×2 (09:47→16:33)
[2017-10-20] MEDS: SODIUM CHLORIDE 0.9% FLUSH 10 ML FLUSH IV FLUSH SCH ×2 (09:48→22:48)
[2017-10-20] MEDS ORDERED: CALCIUM CARBONATE 1.25 GM (CA 500 MG) TAB PO ONE (10:30)
--- NOTE | 2017-10-20 10:35 | HHI.FPPN ---
Subjective Remarks Patient seen and examined this morning. He states he feels back to normal mental status hughes. Denies any chest pain, shortness of breath, abdominal pain, leg pain. On high flow nasal cannula. Alert and oriented today. (John Gotti MD, R2) Objective Vitals Vital Signs Date Time Temp Pulse Resp B/P (MAP) Pulse Ox O2 Delivery O2 Flow Rate FiO2 10/20/17 07:23 95 High Flow Nasal Cannula 35.00 60 10/20/17 06:00 91 10/20/17 04:00 89 10/20/17 04:00 97.7 96 23 112/69 (83) 86 10/20/17 03:01 90 22 113/68 (83) 94 10/20/17 02:01 90 20 132/91 (105) 95 10/20/17 02:00 86 10/20/17 01:00 85 17 85/52 (63) 96 10/20/17 00:00 80 10/20/17 00:00 97.8 88 19 108/59 (75) 98 10/19/17 23:01 98 23 116/58 (77) 98 10/19/17 22:00 80 10/19/17 22:00 110 20 104/68 (80) 91 10/19/17 21:00 110 26 109/60 (76) 97 10/19/17 20:01 98.0 105 17 119/74 (89) 98 10/19/17 20:00 81 10/19/17 19:00 96 65 10/19/17 18:00 102 10/19/17 16:00 96 10/19/17 16:00 97.6 96 22 116/71 (86) 97 10/19/17 14:00 97.8 102 21 94/71 (79) 89 10/19/17 14:00 102 10/19/17 14:00 95 Nasal Cannula 70 10/19/17 12:00 96.4 69 18 102/68 (79) 97 I/O 10/19/17 10/19/17 10/19/17 10/20/17 10/20/17 10/20/17 07:00 15:00 23:00 07:00 15:00 23:00 Intake Total 800 ml 482 ml 240 ml Output Total 210 ml 250 ml Balance 800 ml 272 ml -10 ml Intake Oral 482 ml 240 ml IV Total 800 ml Output Urine Total 210 ml 250 ml # Voids 2 3 # Bowel Movements 2 0 (John Gotti MD, R2) Result Diagram: 10/20/1772410/20/17724 Objective Remarks CONSTITUTIONAL/GEN: Cachectic male, lying in bed PSYCH/NEURO: AOx3. Flat affect. No CN defects. No peripheral motor/sensory defects. SKIN: Maculopapular rash extending from mid back along the left axilla and torso LUNGS: Decreased breath sounds bilaterally; normal rate. Patient on high flow nasal cannula CARDIOVASCULAR: Regular rhythm; mild tachycardia. No LE edema GI/ABD: soft, normal BS; no pain to palpation : catheter in place; Dark urine in schaefer bag (John Gotti MD, R2) A/P Assessment and Plan 66 yr old M Hep C, hx of heavy smoking (2ppd for 61 yrs), and chronic aspirin use presented to the ED with anemia and black tarry stools secondary to suspected GI bleed. Patient transferred to ICU 09/30 for ESBL E.coli sepsis. Patient hemodynamically stable for transfer to med/surg 10/03. Patient confused/ delirious with hypercarbia 10/19; transferred to ICU for BIPAP. Discharge Planning Case Management to assist with SNF placement Pending workup and management of multiple chronic issues (John Gotti MD, R2) Problem List: (1) Hypoxia ICD Codes: R09.02 - Hypoxemia Status: Acute Plan: 10/20: improved mental status. On high flow nasal cannula -Continue management in ICU Venous blood gas (10/09) -pH 7.4, pCO2 60, pO2 24, HCO3 37 -Pulmonology consulted, follow-up recommendations * s/p thoracentesis 10/18 * Incentive spirometry * DuoNeb 4 times a day, when necessary * Aldactone 25mg BID * Lasix 20mg IV daily * Wean O2 to keep sat<92 Impression: Patient has been on substantial O2 requirement via NC since admission; recently hypoxia 10/15 with O2 saturations in upper 70's. Associated with anemia. Decreased breath sounds on exam; no wheezing. No symptoms appreciated by patient, no tachypnea. History of tobacco abuse. CT revealed dominant opacity seen on recent CXR represents loculated pleural effusion in the superior major fissure. Small b/l pleural effusions, mild consolidative infiltrates in the right lower lung, and right upper abdominal ascites. Calcified gallstones. Echo on 10/01 shows EF of 60-65%, normal LV systolic function S/p thoracentesis 10/01/2017- pleural fluid negative for malignancy CXR (10/15): no change; small to moderate left effusion (no interval change from 10/12 (pulmonary vascular congestion, L sided effusion)) ABG (10/15): pH 7.42, pCO2 57, pO2 55, O2 sat 85% ABG (10/17): pH 7.44, PCO2 56, PO2 71 CTA (10/16/2017): without evidence of PE, left-sided pleural effusion, ascites noted s/p transfusion (8 total U pRBC; most recently 2 U 10/17/2017) s/p L thoracentesis 10/18- 1300ml serosanguineous fluid aspirated (2) Delirium ICD Codes: R41.0 - Disorientation, unspecified Status: Acute Plan: Ammonia wnl. Possible CO2 narcosis -Continue O2 supplementation -Restart Dronabinol 2.5mg BID -Psychiatry consulted -Suspect delirium secondary to general medical condition -Consider initiating Haldol BID with titration to TID if needed; additional PRN Haldol for acute agitation; EKG if needed to assess QTC -Frequent reorientation/mobilization -Aggressive management of retention or constipation -Sitter preferred over restraints Impression: Worsening mental status per nursing staff with increased confusion. Patient somewhat disoriented on exam; no focal neurologic deficits. PMH alcholism, liver disease, COPD (3) Bacteremia ICD Codes: R78.81 - Bacteremia Status: Acute Plan: ID consulted, appreciate recommendations * E.coli ESBL sepsis, source is likely GI, questionable SBP * Continue Ertapenem 1000 mg IV q24h (10/02) x 6-8 weeks per ID History: Transferred to med/surg floor 10/03; previously transferred to ICU secondary to ESBL sepsis. Patient met sepsis criteria 09/29 due to tachycardic at 95-113 and hypotension 86/53 Lactic acid 1.4 09/29, Repeat lactic acid 1.5 s/p 500cc bolus of NS, MIVF 140mls/hr 09/29 * CT abd/pelvis w/o contrast done 09/30 revealed moderate size left pleural effusion, ascites, 5cm infrarenal abdominal aortic aneurysm and mesenteric stranding. * CTA 10/01 7.3 cm AAA, contained rupture, cirrhosis, splenomegaly, cholelithiasis, moderate ascites, no evident of protal vein thrombosis or Budd- Chiari syndrome, COPD with bibasilar airspace disease and parapneumonic effusions * 2-D echo - 60-65% EF * Left pleural effusion- thoracentesis with removal of 750 cc of dark yellow fluid. Fluid appeared transudative. * Ascites- paracentesis with removal of 1100 cc of yellow fluids. This appeared due to portal hypertension. * Possibility of aortoenteric fistula Cultures: Blood- Cultures 10/10 NGTD Staph hominis 10/06 (pansensitive) ESBL E Coli 09/29 (resistant, to Ampicillin, Unasyn, Cefazolin, Cefepime, Cefuroxime, Levofloxacin) Antibiotic history: Vancomycin (restarted 10/07-10/11) Vancomycin 1,250mg IV q12h (09/29-10/01) Zosyn 4.5 gm IV q6h (started 09/30-09/22) Azithromycin 250mg PO daily (10/01-10/04) (4) Pancytopenia ICD Codes: D61.818 - Other pancytopenia Plan: 10/19: Hgb 10.4. No reported bleeding Hem/Onc consulted, appreciate recs -Neupogen PRN per Hematology -Monitor CBC and transfuse as needed -Continue daily folate Impression: Pancytopenia; failure to thrive. Per Hem Onc, treated in / cleared but titers elevated during hospitalization. WBC down since admission, Hb stable, plts trending down since admission A/P CT and CTA - pelvic ascites, 7.3cm infrarenal AAA, calcified gallstones, moderate pleural effusions, cirrhosis, CTA S/P thoracentesis, paracentesis Transfusion history: 8 total U pRBC (most recently 2 U pRBC given 10/17), 1 U FFP, 1 U platelets transfused (5) Rash and nonspecific skin eruption ICD Codes: R21 - Rash and other nonspecific skin eruption Status: Acute Plan: petechiae vs contact dermatitis vs drug reaction -Careful with Benadryl due to anticholinergic effects, but may use PRN -Monitor for improvement or change Impression: Rash extending from patient's back, moderately in left axilla, mildly on left chest. Noted on 10/18. Suspect petechiae (6) AAA (abdominal aortic aneurysm) ICD Codes: I71.4 - Abdominal aortic aneurysm, without rupture Plan: CT abd/pelvis w/o contrast done 09/30 5cm infrarenal abdominal aortic aneurysm Aorta CTA 7.3 cm infrarenal AAA with laminated wall, contained rupture which may be chronic and possible associated aortic wall inflammation indicating aortitis Vascular surgery consulted, appreciate recs [facility] confirms that no intervention at this time No intervention for AAA until infection cleared -Continue to follow at this time -Add metoprolol tartrate 12.5mg BID for tachycardia (7) GI bleed ICD Codes: K92.2 - Gastrointestinal hemorrhage, unspecified Status: Resolved Plan: GI consulted for mesenteric stranding and ascites, appreciate recommendations -Protonix 40mg IV BID -Supportive care -Sign off; consult as needed Avoid NSAIDs and anticoagulation EGD in 2 months Colonoscopy in 2 years History: Hb of 6.1 upon admission,1 month hx of black tarry stools, chronic aspirin use Hemoccult performed by RN in ED on 09/28- positive EGD/colonoscopy demonstrated hiatal hernia, gastric ulcer, erosive gastritis and colon polyp Duo/stomach biopsy- Stomach, reactive/chemical gastropathy with intestinal metaplasia. Colon, sigmoid, adenomatous polyp HCV quant, less than 15 IUs/ ml, less than 1.18 log IUs/mlAlpha-feto protein wnl Elevated ferritin levels due to underlying cirrhosis most likely AMSA, AMA negative A1AT 148 Hemochromatosis workup negative Transfusion history: 8 total U pRBC (most recently 2 U pRBC given 10/17), 1 U FFP, 1 U platelets transfused (8) Hematuria ICD Codes: R31.9 - Hematuria, unspecified Status: Resolved Plan: -UA 09/30 moderate occult blood, unlikely traumatic, patient has condom catheter -PSA wnl 0.15 -Renal US 10/04 demonstrated small nonobstructing 3mm calyceal calculus in the mid left kidney. 1.4 cm cyst in the inferior pole of the right kidney. -Urology consulted, recs appreciated Urologic impression: gross hematuria (now resolved) of indeterminate etiology; abnormal coagulation profile and thrombocytopenia likely contributing to the hematuria * manage conservatively for now * office follow up after hospital discharge when overall medical condition improved for cystoscopic evaluation [phone] * will be available as needed during present hospitalization (9) Hepatitis C ICD Codes: B19.20 - Unspecified viral hepatitis C without hepatic coma Status: Acute Plan: -Will assess peritoneal fluid -Continue to monitor LFT's Impression: Patient reports history of Hep C. Patient reports being treated in the s. LFTs wnl. alpha fetoprotein wnl HCV quant, less than 15 IUs/ml, less than 1.18 log IUs/ml A/P CT with moderate pelvic ascites, calcified gallstones. Abdominal US- cirrhotic appearing liver; ascites in upper abdomen. Gallstones and thickened gallbladder wall. Splenomegaly; assumed secondary to portal hypertension/cirrhosis (10) Abnormal chest x-ray ICD Codes: R93.8 - Abnormal findings on diagnostic imaging of other specified body structures Plan: Impression: Heavy smoker. Mass 2.51 x 3.86 found on CXR. Small free- flowing right pleural effusion at the base. CT revealed dominant opacity seen on recent CXR represents loculated pleural effusion in the superior major fissure. Small b/l pleural effusions, mild consolidative infiltrates in the right lower lung, and right upper abdominal ascites. Calcified gallstones. S/p thoracentesis 10/01/2017- pleural fluid negative for malignancy (11) Decreased appetite ICD Codes: R63.0 - Anorexia Status: Acute Plan: -Will attempt to initiate tube feedings -Continue to monitor intake -Psychiatry consulted -Hold Dronabinol 2.5mg BID and Remeron while delirious -Will start Prozac 20mg daily Impression: Lack of oral intake during hospitalization in association with flat affect. Suspect possible depression as etiology. Patient agreeable to tube feedings (12) RALF (acute kidney injury) ICD Codes: N17.9 - Acute kidney failure, unspecified Status: Resolved Plan: -Resolved -Continue to monitor Impression: RALF secondary to dehydration BUN 28 and Cr 0.53 upon admission (13) Sacral wound ICD Codes: S31.000A - Unspecified open wound of lower back and pelvis without penetration into retroperitoneum, initial encounter Plan: Unstageable sacral wound, 3cm x 6cm Wound care consulted, recommendations appreciated 1) Cleanse sacral wound with normal saline,pat dry. 2) Apply skin prep to gibran wound 3) Santyl josé thick to wound bed 4) Cover with Maxorb 2 cut to fit. 5) Cover with dry dressing (boarder gauze) 6) Change dressing Daily (14) Nutrition, metabolism, and development symptoms ICD Codes: R63.8 - Other symptoms and signs concerning food and fluid intake Plan: Fluids: PO due to fluid overload Diet: Lack of PO intake; Regular Basic diet Electrolytes: monitor and replace as needed Other: Case management consulted GI ppx: Protonix 40mg IV q12h DVT ppx: SCDs (John Gotti MD, R2) Problem List: (1) Hypoxia ICD Codes: R09.02 - Hypoxemia Status: Acute Plan: 10/20: improved mental status. On high flow nasal cannula -Continue management in ICU Venous blood gas (10/09) -pH 7.4, pCO2 60, pO2 24, HCO3 37 -Pulmonology consulted, follow-up recommendations * s/p thoracentesis 10/18 * Incentive spirometry * DuoNeb 4 times a day, when necessary * Aldactone 25mg BID * Lasix 20mg IV daily * Wean O2 to keep sat<92 Impression: Patient has been on substantial O2 requirement via NC since admission; recently hypoxia 10/15 with O2 saturations in upper 70's. Associated with anemia. Decreased breath sounds on exam; no wheezing. No symptoms appreciated by patient, no tachypnea. History of tobacco abuse. CT revealed dominant opacity seen on recent CXR represents loculated pleural effusion in the superior major fissure. Small b/l pleural effusions, mild consolidative infiltrates in the right lower lung, and right upper abdominal ascites. Calcified gallstones. Echo on 10/01 shows EF of 60-65%, normal LV systolic function S/p thoracentesis 10/01/2017- pleural fluid negative for malignancy CXR (10/15): no change; small to moderate left effusion (no interval change from 10/12 (pulmonary vascular congestion, L sided effusion)) ABG (10/15): pH 7.42, pCO2 57, pO2 55, O2 sat 85% ABG (10/17): pH 7.44, PCO2 56, PO2 71 CTA (10/16/2017): without evidence of PE, left-sided pleural effusion, ascites noted s/p transfusion (8 total U pRBC; most recently 2 U 10/17/2017) s/p L thoracentesis 12/30- 1300ml serosanguineous fluid aspirated (2) Delirium ICD Codes: R41.0 - Disorientation, unspecified Status: Acute Plan: Ammonia wnl. Possible CO2 narcosis -Continue O2 supplementation -Restart Dronabinol 2.5mg BID -Psychiatry consulted -Suspect delirium secondary to general medical condition -Consider initiating Haldol BID with titration to TID if needed; additional PRN Haldol for acute agitation; EKG if needed to assess QTC -Frequent reorientation/mobilization -Aggressive management of retention or constipation -Sitter preferred over restraints Impression: Worsening mental status per nursing staff with increased confusion. Patient somewhat disoriented on exam; no focal neurologic deficits. PMH alcholism, liver disease, COPD (3) Bacteremia ICD Codes: R78.81 - Bacteremia Status: Acute Plan: ID consulted, appreciate recommendations * E.coli ESBL sepsis, source is likely GI, questionable SBP * Continue Ertapenem 1000 mg IV q24h (10/02) x 6-8 weeks per ID History: Transferred to med/surg floor 10/03; previously transferred to ICU secondary to ESBL sepsis. Patient met sepsis criteria 09/29 due to tachycardic at 95-113 and hypotension 86/53 Lactic acid 1.4 09/29, Repeat lactic acid 1.5 s/p 500cc bolus of NS, MIVF 140mls/hr 09/29 * CT abd/pelvis w/o contrast done 09/30 revealed moderate size left pleural effusion, ascites, 5cm infrarenal abdominal aortic aneurysm and mesenteric stranding. * CTA 10/01 7.3 cm AAA, contained rupture, cirrhosis, splenomegaly, cholelithiasis, moderate ascites, no evident of protal vein thrombosis or Budd- Chiari syndrome, COPD with bibasilar airspace disease and parapneumonic effusions * 2-D echo - 60-65% EF * Left pleural effusion- thoracentesis with removal of 750 cc of dark yellow fluid. Fluid appeared transudative. * Ascites- paracentesis with removal of 1100 cc of yellow fluids. This appeared due to portal hypertension. * Possibility of aortoenteric fistula Cultures: Blood- Cultures 10/10 NGTD Staph hominis 10/06 (pansensitive) ESBL E Coli 09/29 (resistant, to Ampicillin, Unasyn, Cefazolin, Cefepime, Cefuroxime, Levofloxacin) Antibiotic history: Vancomycin (restarted 10/07-10/11) Vancomycin 1,250mg IV q12h (09/29-10/01) Zosyn 4.5 gm IV q6h (started 09/30-09/22) Azithromycin 250mg PO daily (10/01-10/04) (4) Pancytopenia ICD Codes: D61.818 - Other pancytopenia Plan: 10/19: Hgb 10.4. No reported bleeding Hem/Onc consulted, appreciate recs -Neupogen PRN per Hematology -Monitor CBC and transfuse as needed -Continue daily folate Impression: Pancytopenia; failure to thrive. Per Hem Onc, treated in / cleared but titers elevated during hospitalization. WBC down since admission, Hb stable, plts trending down since admission A/P CT and CTA - pelvic ascites, 7.3cm infrarenal AAA, calcified gallstones, moderate pleural effusions, cirrhosis, CTA S/P thoracentesis, paracentesis Transfusion history: 8 total U pRBC (most recently 2 U pRBC given 10/17), 1 U FFP, 1 U platelets transfused (5) Rash and nonspecific skin eruption ICD Codes: R21 - Rash and other nonspecific skin eruption Status: Acute Plan: petechiae vs contact dermatitis vs drug reaction -Careful with Benadryl due to anticholinergic effects, but may use PRN -Monitor for improvement or change Impression: Rash extending from patient's back, moderately in left axilla, mildly on left chest. Noted on 10/18. Suspect petechiae (6) AAA (abdominal aortic aneurysm) ICD Codes: I71.4 - Abdominal aortic aneurysm, without rupture Plan: CT abd/pelvis w/o contrast done 09/30 5cm infrarenal abdominal aortic aneurysm Aorta CTA 7.3 cm infrarenal AAA with laminated wall, contained rupture which may be chronic and possible associated aortic wall inflammation indicating aortitis Vascular surgery consulted, appreciate recs [facility] confirms that no intervention at this time No intervention for AAA until infection cleared -Continue to follow at this time -Add metoprolol tartrate 12.5mg BID for tachycardia (7) GI bleed ICD Codes: K92.2 - Gastrointestinal hemorrhage, unspecified Status: Resolved Plan: GI consulted for mesenteric stranding and ascites, appreciate recommendations -Protonix 40mg IV BID -Supportive care -Sign off; consult as needed Avoid NSAIDs and anticoagulation EGD in 2 months Colonoscopy in 2 years History: Hb of 6.1 upon admission,1 month hx of black tarry stools, chronic aspirin use Hemoccult performed by RN in ED on 09/28- positive EGD/colonoscopy demonstrated hiatal hernia, gastric ulcer, erosive gastritis and colon polyp Duo/stomach biopsy- Stomach, reactive/chemical gastropathy with intestinal metaplasia. Colon, sigmoid, adenomatous polyp HCV quant, less than 15 IUs/ ml, less than 1.18 log IUs/mlAlpha-feto protein wnl Elevated ferritin levels due to underlying cirrhosis most likely AMSA, AMA negative A1AT 148 Hemochromatosis workup negative Transfusion history: 8 total U pRBC (most recently 2 U pRBC given 10/17), 1 U FFP, 1 U platelets transfused (8) Hematuria ICD Codes: R31.9 - Hematuria, unspecified Status: Resolved Plan: -UA 09/30 moderate occult blood, unlikely traumatic, patient has condom catheter -PSA wnl 0.15 -Renal US 10/04 demonstrated small nonobstructing 3mm calyceal calculus in the mid left kidney. 1.4 cm cyst in the inferior pole of the right kidney. -Urology consulted, recs appreciated Urologic impression: gross hematuria (now resolved) of indeterminate etiology; abnormal coagulation profile and thrombocytopenia likely contributing to the hematuria * manage conservatively for now * office follow up after hospital discharge when overall medical condition improved for cystoscopic evaluation [phone] * will be available as needed during present hospitalization (9) Hepatitis C ICD Codes: B19.20 - Unspecified viral hepatitis C without hepatic coma Status: Acute Plan: -Will assess peritoneal fluid -Continue to monitor LFT's Impression: Patient reports history of Hep C. Patient reports being treated in the s. LFTs wnl. alpha fetoprotein wnl HCV quant, less than 15 IUs/ml, less than 1.18 log IUs/ml A/P CT with moderate pelvic ascites, calcified gallstones. Abdominal US- cirrhotic appearing liver; ascites in upper abdomen. Gallstones and thickened gallbladder wall. Splenomegaly; assumed secondary to portal hypertension/cirrhosis (10) Abnormal chest x-ray ICD Codes: R93.8 - Abnormal findings on diagnostic imaging of other specified body structures Plan: Impression: Heavy smoker. Mass 2.51 x 3.86 found on CXR. Small free- flowing right pleural effusion at the base. CT revealed dominant opacity seen on recent CXR represents loculated pleural effusion in the superior major fissure. Small b/l pleural effusions, mild consolidative infiltrates in the right lower lung, and right upper abdominal ascites. Calcified gallstones. S/p thoracentesis 10/01/2017- pleural fluid negative for malignancy (11) Decreased appetite ICD Codes: R63.0 - Anorexia Status: Acute Plan: -Will attempt to initiate tube feedings -Continue to monitor intake -Psychiatry consulted -Hold Dronabinol 2.5mg BID and Remeron while delirious -Will start Prozac 20mg daily Impression: Lack of oral intake during hospitalization in association with flat affect. Suspect possible depression as etiology. Patient agreeable to tube feedings (12) RALF (acute kidney injury) ICD Codes: N17.9 - Acute kidney failure, unspecified Status: Resolved Plan: -Resolved -Continue to monitor Impression: RALF secondary to dehydration BUN 28 and Cr 0.53 upon admission (13) Sacral wound ICD Codes: S31.000A - Unspecified open wound of lower back and pelvis without penetration into retroperitoneum, initial encounter Plan: Unstageable sacral wound, 3cm x 6cm Wound care consulted, recommendations appreciated 1) Cleanse sacral wound with normal saline,pat dry. 2) Apply skin prep to gibran wound 3) Santyl josé thick to wound bed 4) Cover with Maxorb 2 cut to fit. 5) Cover with dry dressing (boarder gauze) 6) Change dressing Daily (14) Nutrition, metabolism, and development symptoms ICD Codes: R63.8 - Other symptoms and signs concerning food and fluid intake Plan: Fluids: PO due to fluid overload Diet: Lack of PO intake; Regular Basic diet Electrolytes: monitor and replace as needed Other: Case management consulted GI ppx: Protonix 40mg IV q12h DVT ppx: SCDs See the residents documentation for details. I saw and evaluated the patient regarding the roland portions of this evaluation and agree with the residents findings and plans as written. Parts of this note were created using [employer] voice recognition software program. While efforts were made to correct any mistakes made by this software, some mistakes, errors, and omissions may remain in the final note that were not caught when the note was originally created. (Akshat Chen MD) Problem Qualifiers (1) GI bleed: Qualified Codes: K92.2 - Gastrointestinal hemorrhage, unspecified (2) Sacral wound: Qualified Codes: S31.000D - Unspecified open wound of lower back and pelvis without penetration into retroperitoneum, subsequent encounter John Gotti MD, R2 Oct 20, 2017 10:35 Akshat Chen MD Oct 21, 2017 13:03
--- NOTE | 2017-10-20 11:14 | PD.ONC.PN ---
Subjective Subjective Remarks Afebrile overnight. Patient seen in [facility], on high flow oxygen. the residents called me this morning and stated they had noticed a possible petechial rash on legs. Patient has no complaints. No obvious bleeding. Objective Data Date Time Temp Pulse Resp B/P (MAP) Pulse Ox O2 Delivery O2 Flow Rate FiO2 10/20/17 07:23 95 High Flow Nasal Cannula 35.00 60 10/20/17 06:00 91 10/20/17 04:00 89 10/20/17 04:00 97.7 96 23 112/69 (83) 86 10/20/17 03:01 90 22 113/68 (83) 94 10/20/17 02:01 90 20 132/91 (105) 95 10/20/17 02:00 86 10/20/17 01:00 85 17 85/52 (63) 96 10/20/17 00:00 80 10/20/17 00:00 97.8 88 19 108/59 (75) 98 10/19/17 23:01 98 23 116/58 (77) 98 10/19/17 22:00 80 10/19/17 22:00 110 20 104/68 (80) 91 10/19/17 21:00 110 26 109/60 (76) 97 10/19/17 20:01 98.0 105 17 119/74 (89) 98 10/19/17 20:00 81 10/19/17 19:00 96 65 10/19/17 18:00 102 10/19/17 16:00 96 10/19/17 16:00 97.6 96 22 116/71 (86) 97 10/19/17 14:00 97.8 102 21 94/71 (79) 89 10/19/17 14:00 102 10/19/17 14:00 95 Nasal Cannula 70 10/19/17 12:00 96.4 69 18 102/68 (79) 97 10/20/17 10/20/17 10/20/17 07:00 15:00 23:00 Intake Total 240 ml Output Total 250 ml Balance -10 ml Result Diagram: 10/20/17 0725 10/20/17 0725 Laboratory Results Laboratory Tests Test 10/19/17 11:13 10/19/17 11:16 10/19/17 16:38 1/1/18 07:25 Blood Gas Puncture Site RAC Blood Gas Patient Temperature 98.6 Venous Blood pH 7.40 Venous Blood Partial Pressure CO2 60 mmHg Venous Blood Partial Pressure O2 24 mmHg Venous Blood HCO3 37 mmol/L Venous Blood Oxygen Saturation 35 % Venous Blood Oxygen Content 4.4 Vol % Venous Blood Base Excess 11.8 mmol/L Oxygen Delivery Device NASAL CANNULA Blood Gas Liter Flow 6 L/M White Blood Count 2.0 TH/MM3 1.6 TH/MM3 Red Blood Count 3.39 MIL/MM3 3.42 MIL/MM3 Hemoglobin 10.4 GM/DL 10.5 GM/DL Hematocrit 31.2 % 31.5 % Mean Corpuscular Volume 92.0 FL 92.1 FL Mean Corpuscular Hemoglobin 30.5 PG 30.8 PG Mean Corpuscular Hemoglobin Concent 33.2 % 33.4 % Red Cell Distribution Width 17.9 % 17.8 % Platelet Count 36 TH/MM3 32 TH/MM3 Mean Platelet Volume 7.9 FL 8.2 FL Neutrophils (%) (Auto) 50.7 % 54.7 % Lymphocytes (%) (Auto) 36.0 % 36.1 % Monocytes (%) (Auto) 11.3 % 6.4 % Eosinophils (%) (Auto) 1.5 % 2.4 % Basophils (%) (Auto) 0.5 % 0.4 % Neutrophils # (Auto) 1.0 TH/MM3 0.9 TH/MM3 Lymphocytes # (Auto) 0.7 TH/MM3 0.6 TH/MM3 Monocytes # (Auto) 0.2 TH/MM3 0.1 TH/MM3 Eosinophils # (Auto) 0.0 TH/MM3 0.0 TH/MM3 Basophils # (Auto) 0.0 TH/MM3 0.0 TH/MM3 CBC Comment AUTO DIFF AUTO DIFF Differential Comment AUTO DIFF CONFIRMED FINAL DIFF MANUAL Toxic Granulation 2+ Platelet Estimate LOW LOW Platelet Morphology Comment NORMAL NORMAL Blood Urea Nitrogen 15 MG/DL 15 MG/DL Creatinine 0.29 MG/DL 0.30 MG/DL Random Glucose 81 MG/DL 89 MG/DL Total Protein 6.3 GM/DL 6.1 GM/DL Albumin 2.1 GM/DL 2.0 GM/DL Calcium Level 8.1 MG/DL 8.2 MG/DL Alkaline Phosphatase 91 U/L 83 U/L Aspartate Amino Transf (AST/SGOT) 17 U/L 18 U/L Alanine Aminotransferase (ALT/SGPT) 13 U/L 9 U/L Total Bilirubin 1.8 MG/DL 1.6 MG/DL Sodium Level 146 MEQ/L 144 MEQ/L Potassium Level 3.7 MEQ/L 3.1 MEQ/L Chloride Level 106 MEQ/L 103 MEQ/L Carbon Dioxide Level 37.0 MEQ/L 36.5 MEQ/L Anion Gap 3 MEQ/L 5 MEQ/L Estimat Glomerular Filtration Rate 312 ML/MIN 300 ML/MIN Ammonia LESS THAN 10 MCMOL/L Prothrombin Time 15.5 SEC Prothromb Time International Ratio 1.5 RATIO Activated Partial Thromboplast Time 38.2 SEC Lactate Dehydrogenase 163 U/L Differential Total Cells Counted 100 Neutrophils % (Manual) 62 % Lymphocytes % 22 % Monocytes % 13 % Eosinophils % 3 % Neutrophils # (Manual) 1.0 TH/MM3 Nucleated Red Blood Cells 1 /100 WBC Toxic Vacuolation PRESENT Culture Results Microbiology Date/Time Source Procedure Growth Status 10/18/17 15:30 Fluid Pleural Fluid Fungal Smear - Final NO FUNGAL ELEMENTS SEEN. Resulted 10/18/17 15:30 Fluid Pleural Fluid Fungal Culture Pending Resulted 10/18/17 15:30 Fluid Pleural Fluid Acid Fast Stain Pending Received 10/18/17 15:30 Fluid Pleural Fluid Mycobacterial Culture Pending Received 10/18/17 15:30 Fluid Pleural Fluid Gram Stain - Final Resulted 10/18/17 15:30 Fluid Pleural Fluid Body Fluid Culture - Preliminary NO GROWTH IN 48 HOURS. Resulted Administered Medications Medications (Trade) Dose Ordered Sig/Jailene Route PRN Reason Start Time Stop Time Status Last Admin Dose Admin Sodium Chloride (NS Flush) 2 ml BID IV FLUSH 09/28/17 13:45 10/20/17 09:48 Pantoprazole Sodium (Protonix Inj) 40 mg Q12H IV PUSH 09/28/17 14:00 10/20/17 03:43 Collagenase (Santyl Oint) 1 applic DAILY TOPICAL 09/29/17 12:45 10/19/17 09:50 Diphenhydramine HCl (Benadryl) 25 mg Q4H PRN PO SEE LABEL COMMENTS 10/01/17 09:30 10/01/17 09:30 Diphenhydramine HCl (Benadryl 2% Cream) 1 applic TID PRN TOPICAL ITCHING 10/02/17 10:00 10/02/17 10:23 Folic Acid (Folate) 1 mg DAILY PO 10/02/17 11:00 10/20/17 09:47 Ertapenem 1000 mg/ Sodium Chloride 100 ml @ 200 mls/hr Q24H IV 10/06/17 14:00 Future hold 10/18/17 14:16 Mirtazapine (Remeron) 15 mg HS PO 10/16/17 21:00 Future Hold 10/18/17 21:39 Metoprolol Tartrate (Lopressor) 12.5 mg Q12HR PO 10/16/17 21:00 10/19/17 21:23 Spironolactone (Aldactone) 25 mg BID@18 PO 10/18/17 18:00 10/20/17 09:47 Potassium Chloride (KCl) 20 meq Q12HR PO 10/18/17 21:00 10/20/17 09:47 Furosemide (Lasix) 20 mg DAILY PO 10/19/17 09:00 10/20/17 09:47 Nystatin (Mycostatin Powder) 1 applic Q12HR TOPICAL 10/19/17 09:00 10/19/17 09:50 Fluoxetine HCl (PROzac) 20 mg DAILY PO 10/19/17 09:00 10/20/17 09:46 Haloperidol Lactate (Haldol Inj) 0.5 mg TID PRN IV AGITATION 10/19/17 10:00 10/19/17 09:55 Objective Remarks GENERAL: Pleasant elderly male, lying in bed. He is sleeping on approach, but awakens to voice. on high flow oxygen via [place]. SKIN: Warm and dry. red macular rash on trunk and extremities. there are a few small areas of petechiae on legs, but the rash appears to be more of a dermatitis. HEAD: Normocephalic. EYES: No injection or drainage. NECK: Supple, trachea midline. CARDIOVASCULAR: +S1/S2, mild tachycardia. RESPIRATORY: anterior post GASTROINTESTINAL: Abdomen soft, non-tender, nondistended. EXTREMITIES: No cyanosis NEUROLOGICAL: awake. following commands. answering questions appropriately. Assessment/Plan Problem List: (1) Pancytopenia ICD Codes: D61.818 - Other pancytopenia Assessment 66y/o male with pancytopenia and failure to thrive. --history of hepatitis C diagnosed in the ;states he was treated for the hepatitis C and this was "cleared." Repeat hepatitis C titers this hospitalization indicate low circulating hepatitis C vital titers. --CT angiogram showed cirrhotic-appearing liver with splenomegaly and moderate ascites. --likely has baseline pancytopenia due to cirrhosis and splenomegaly with further drop in the white blood cell and platelet count due to recent sepsis. Plan 1. rash: this appears to be more of a dermatitis, although there are a few small areas of petechiae. would monitor CBC and transfuse if bleeding or platelets fall to less than 20K. 2. Neutropenia: will dose with Neupogen today and tomorrow. 3. check coags and fibrinogen today. Maria Elena Gómez Oct 20, 2017 11:14
[2017-10-20] MEDS: DRONABINOL 2.5 MG CAP PO SCH ×2 (11:54→16:33)
[2017-10-20 12:48] LABS: INTERNATIONAL NORMALIZED RATIO 1.5 RATIO; PROTHROMBIN TIME - PATIENT 15.4 SEC (9.8-11.6)
[2017-10-20] MEDS: ERTAPENEM INJ 1,000 MG in SODIUM CHLORIDE 0.9% INJ 100 ML IV SCH (14:01)
--- NOTE | 2017-10-20 15:29 | HHI.PR ---
Subjective Remarks Pulls O2 off and thoracentesis was done,and now on a high Flow O2 cannula. and Fio2 at 50 % Has fluid overload. Confused. Objective Vital Signs Date Time Temp Pulse Resp B/P (MAP) Pulse Ox O2 Delivery O2 Flow Rate FiO2 10/20/17 14:00 97 10/20/17 12:00 92 10/20/17 12:00 97.6 92 15 112/71 (85) 94 10/20/17 12:00 94 50 10/20/17 10:00 95 10/20/17 08:00 88 10/20/17 08:00 97 60 10/20/17 08:00 98.0 88 13 94/66 (75) 97 10/20/17 07:23 95 High Flow Nasal Cannula 35.00 60 10/20/17 06:00 91 10/20/17 04:00 89 10/20/17 04:00 97.7 96 23 112/69 (83) 86 10/20/17 03:01 90 22 113/68 (83) 94 10/20/17 02:01 90 20 132/91 (105) 95 10/20/17 02:00 86 10/20/17 01:00 85 17 85/52 (63) 96 10/20/17 00:00 80 10/20/17 00:00 97.8 88 19 108/59 (75) 98 10/19/17 23:01 98 23 116/58 (77) 98 10/19/17 22:00 80 10/19/17 22:00 110 20 104/68 (80) 91 10/19/17 21:00 110 26 109/60 (76) 97 10/19/17 20:01 98.0 105 17 119/74 (89) 98 10/19/17 20:00 81 10/19/17 19:00 96 65 10/19/17 18:00 102 10/19/17 16:00 96 10/19/17 16:00 97.6 96 22 116/71 (86) 97 I/O 10/19/17 10/19/17 10/19/17 10/20/17 10/20/17 10/20/17 07:00 15:00 23:00 07:00 15:00 23:00 Intake Total 800 ml 482 ml 240 ml Output Total 210 ml 250 ml Balance 800 ml 272 ml -10 ml Intake Oral 482 ml 240 ml IV Total 800 ml Output Urine Total 210 ml 250 ml # Voids 2 3 # Bowel Movements 2 0 Result Diagram: 10/20/1772410/20/17724 Objective Remarks GENERAL: This is a moderately overweight elderly white male who is laying flat. HEENT: Head normocephalic. Pupils are reactive. Sclerae anicteric. Throat was dry. He has no inflammation. NECK: Supple. No bruits or thyroid enlargement. CHEST: Distant breath sounds over the left mid lower chest with occasional bibasilar crackles. No S3 gallop. ABDOMEN: Soft and protuberant. There is some tenderness in the upper abdomen The bowel sounds are active.No Mass. EXTREMITIES: 2 + Edema with decreased peripheral pulses. Reflexes are 1+ with no gross motor deficits. SKIN: No lesions observed. Assessment and Plan Assessment and Plan IMPRESSION 1. Loculated left pleural effusion. Etiology undetermined. 2. History of hepatitis C 3. GI bleeding with anemia and gastric ulceration. 4. Atelectasis both bases with probable resolving pneumonia 5. COPD with emphysema and chronic bronchitis 6. Sepsis resolved 7. Pancytopenia. 8. Abdominal aortic aneurysm. PLan : 1. Cont Aldactone 25 mg bid 2. IS at bedside q3h 3. Add Lasix 20 mg IV daily. 4. Wean O2 to Keep sat > 92.Switch to N/C 5. CBC,BMP in am 6. Continue antibiotics per ID 7. PT evaluation Yasemin Redding MD Oct 20, 2017 15:29
--- NOTE | 2017-10-20 15:32 | HHI.HCPN ---
Reason for visit a. To assist with evaluation and management of symptoms including: Weakness , dyspnea, decreased appetite b. To assist medical decision maker(s) with: better understanding of current medical conditions; weighing benefits/burdens of medical treatment options; making medical treatment decisions. (Bing Arguello) Subjective/Interval History Seen in ICU, lethargic today, on high flow O2. Slightly raised erythematous rash seen over trunk down to groin. Evaluated by hematology for possible petechia versus drug reaction versus contact dermatitis. Patient denies discomfort with rash. Status post thoracentesis of 1300 mm serosanguineous fluid done 10/18. Consultants: * GI: EGD/colonoscopy showed hiatal hernia, gastric ulcer, erosive gastritis and colon polyp. Protonix 40 mg every 12 hours was initiated. * Surgery: Consulted to evaluate 7.3 cm infrarenal abdominal aortic aneurysm with laminated wall suggesting a contained rupture versus associated aortic wall inflammation indicating aortitis. Very poor surgical candidate given her multiple comorbidities, recent bleed. * Hematology: consulted for evaluation of pancytopenia, which was felt to be due to cirrhosis and splenomegaly, as well as history of hepatitis C. * Urology: Consulted for gross hematuria, felt to be related to abnormal coagulation profile and thrombocytopenia. Conservative management, outpatient follow-up. . (Bing Arguello) Advance Directives Living Will: Never completed Health Care Surrogate: Never completed Durable Power of Skate Maker: Never completed (Bing Arguello) Objective Vital Signs Date Time Temp Pulse Resp B/P (MAP) Pulse Ox O2 Delivery O2 Flow Rate FiO2 10/20/17 14:00 97 10/20/17 12:00 92 10/20/17 12:00 97.6 92 15 112/71 (85) 94 10/20/17 12:00 94 50 10/20/17 10:00 95 10/20/17 08:00 88 10/20/17 08:00 97 60 10/20/17 08:00 98.0 88 13 94/66 (75) 97 10/20/17 07:23 95 High Flow Nasal Cannula 35.00 60 10/20/17 06:00 91 10/20/17 04:00 89 10/20/17 04:00 97.7 96 23 112/69 (83) 86 10/20/17 03:01 90 22 113/68 (83) 94 10/20/17 02:01 90 20 132/91 (105) 95 10/20/17 02:00 86 10/20/17 01:00 85 17 85/52 (63) 96 10/20/17 00:00 80 10/20/17 00:00 97.8 88 19 108/59 (75) 98 10/19/17 23:01 98 23 116/58 (77) 98 10/19/17 22:00 80 10/19/17 22:00 110 20 104/68 (80) 91 10/19/17 21:00 110 26 109/60 (76) 97 10/19/17 20:01 98.0 105 17 119/74 (89) 98 10/19/17 20:00 81 10/19/17 19:00 96 65 10/19/17 18:00 102 10/19/17 16:00 96 10/19/17 16:00 97.6 96 22 116/71 (86) 97 Intake & Output 10/20/17 10/20/17 07:00 19:00 Intake Total 722 ml Output Total 460 ml Balance 262 ml Intake Oral 722 ml Output Urine Total 460 ml # Voids 3 # Bowel Movements 0 Physical Exam CONSTITUTIONAL/GENERAL: This is an adequately nourished patient, in no apparent distress. TUBES/LINES/DRAINS: PIV 2 SKIN: Slightly raised erythematous nonexudative rash seen on trunk axilla down to groin folds. Slight petechiae on right lower abarca HEAD: Atraumatic. Normocephalic. EYES: Pupils equal and round and reactive. Extraocular motions intact. No scleral icterus. No injection or drainage. Fundi not examined. CARDIOVASCULAR: Regular rate and rhythm without murmurs, gallops, or rubs. No JVD. Peripheral pulses symmetric. RESPIRATORY/CHEST: Symmetric, unlabored respirations. Clear to auscultation. Breath sounds equal bilaterally. No wheezes, rales, or rhonchi. GASTROINTESTINAL: Abdomen soft, non-tender, nondistended. No hepato-splenomegaly , or palpable masses. No guarding. Bowel sounds present. GENITOURINARY: Without palpable bladder distension. Maynard catheter in place. MUSCULOSKELETAL: Extremities without clubbing, cyanosis, or edema. No joint tenderness or effusion noted. No calf tenderness. No mottling or clubbing. LYMPHATICS: No palpable cervical or supraclavicular adenopathy. NEUROLOGICAL: Lethargic, arousable, moves all extremities to direction. PSYCHIATRIC: Flat affect, no agitation. . (Bing Arguello) Diagnostic Tests Laboratory Laboratory Tests Test 10/17/17 19:29 10/18/17 00:48 10/18/17 05:45 10/18/17 15:30 White Blood Count 2.8 TH/MM3 (4.0-11.0) 2.6 TH/MM3 (4.0-11.0) Red Blood Count 2.97 MIL/MM3 (4.50-5.90) 3.67 MIL/MM3 (4.50-5.90) Hemoglobin 9.3 GM/DL (13.0-17.0) 10.1 GM/DL (13.0-17.0) 11.4 GM/DL (13.0-17.0) Hematocrit 27.8 % (39.0-51.0) 29.6 % (39.0-51.0) 33.9 % (39.0-51.0) Mean Corpuscular Volume 93.7 FL (80.0-100.0) 92.4 FL (80.0-100.0) Mean Corpuscular Hemoglobin 31.4 PG (27.0-34.0) 31.1 PG (27.0-34.0) Mean Corpuscular Hemoglobin Concent 33.4 % (32.0-36.0) 33.6 % (32.0-36.0) Red Cell Distribution Width 17.2 % (11.6-17.2) 17.7 % (11.6-17.2) Platelet Count 34 TH/MM3 (150-450) 41 TH/MM3 (150-450) Mean Platelet Volume 8.2 FL (7.0-11.0) 8.6 FL (7.0-11.0) Prothrombin Time 15.5 SEC (9.8-11.6) Prothromb Time International Ratio 1.5 RATIO Activated Partial Thromboplast Time 32.9 SEC (24.3-30.1) Neutrophils (%) (Auto) 69.6 % (16.0-70.0) Lymphocytes (%) (Auto) 21.4 % (9.0-44.0) Monocytes (%) (Auto) 7.1 % (0.0-8.0) Eosinophils (%) (Auto) 1.4 % (0.0-4.0) Basophils (%) (Auto) 0.5 % (0.0-2.0) Neutrophils # (Auto) 1.8 TH/MM3 (1.8-7.7) Lymphocytes # (Auto) 0.6 TH/MM3 (1.0-4.8) Monocytes # (Auto) 0.2 TH/MM3 (0-0.9) Eosinophils # (Auto) 0.0 TH/MM3 (0-0.4) Basophils # (Auto) 0.0 TH/MM3 (0-0.2) CBC Comment AUTO DIFF Differential Total Cells Counted 100 Neutrophils % (Manual) 72 % (16-70) Band Neutrophils % 14 % (0-6) Lymphocytes % 6 % (9-44) Monocytes % 6 % (0-8) Eosinophils % 1 % (0-4) Basophils % 1 % (0-2) Neutrophils # (Manual) 2.2 TH/MM3 (1.8-7.7) Nucleated Red Blood Cells 1 /100 WBC (0-0) Differential Comment FINAL DIFF MANUAL Toxic Granulation 2+ (NORMAL) Toxic Vacuolation PRESENT (NONE SEEN) Platelet Estimate LOW (NORMAL) Platelet Morphology Comment NORMAL (NORMAL) Blood Urea Nitrogen 14 MG/DL (7-18) Creatinine 0.29 MG/DL (0.60-1.30) Random Glucose 70 MG/DL (74-106) Calcium Level 8.4 MG/DL (8.5-10.1) Phosphorus Level 2.5 MG/DL (2.5-4.9) Magnesium Level 1.5 MG/DL (1.5-2.5) Sodium Level 145 MEQ/L (136-145) Potassium Level 3.3 MEQ/L (3.5-5.1) Chloride Level 103 MEQ/L (98-107) Carbon Dioxide Level 37.8 MEQ/L (21.0-32.0) Anion Gap 4 MEQ/L (5-15) Estimat Glomerular Filtration Rate 312 ML/MIN (>89) Pleural Fluid pH 8.0 Pleural Fluid WBC 30 /MM3 (0-10) Pleural Fluid RBC 420 /MM3 (0-0) Pleural Fluid Neutrophils 74 % Pleural Fluid Lymphocytes 13 % Pleural Fluid Monocytes 9 % Pleural Fluid Mesothelial Cells 4 % Pleural Fluid Total Protein 1.8 GM/DL Pleural Fluid LDH 69 U/L Pleural Fluid Glucose 92 MG/DL Test 10/18/17 18:10 10/19/17 11:13 10/19/17 11:16 10/19/17 16:38 Blood Urea Nitrogen 15 MG/DL (7-18) 15 MG/DL (7-18) Creatinine 0.32 MG/DL (0.60-1.30) 0.29 MG/DL (0.60-1.30) Random Glucose 83 MG/DL (74-106) 81 MG/DL (74-106) Calcium Level 8.1 MG/DL (8.5-10.1) 8.1 MG/DL (8.5-10.1) Sodium Level 146 MEQ/L (136-145) 146 MEQ/L (136-145) Potassium Level 3.6 MEQ/L (3.5-5.1) 3.7 MEQ/L (3.5-5.1) Chloride Level 102 MEQ/L (98-107) 106 MEQ/L (98-107) Carbon Dioxide Level 36.7 MEQ/L (21.0-32.0) 37.0 MEQ/L (21.0-32.0) Anion Gap 7 MEQ/L (5-15) 3 MEQ/L (5-15) Estimat Glomerular Filtration Rate 278 ML/MIN (>89) 312 ML/MIN (>89) Blood Gas Puncture Site RAC Blood Gas Patient Temperature 98.6 Venous Blood pH 7.40 (7.360-7.400) Venous Blood Partial Pressure CO2 60 mmHg (44-48) Venous Blood Partial Pressure O2 24 mmHg (35-40) Venous Blood HCO3 37 mmol/L (22-26) Venous Blood Oxygen Saturation 35 % (70-76) Venous Blood Oxygen Content 4.4 Vol % (9.0-17.0) Venous Blood Base Excess 11.8 mmol/L (-2-2) Oxygen Delivery Device NASAL CANNULA Blood Gas Liter Flow 6 L/M White Blood Count 2.0 TH/MM3 (4.0-11.0) Red Blood Count 3.39 MIL/MM3 (4.50-5.90) Hemoglobin 10.4 GM/DL (13.0-17.0) Hematocrit 31.2 % (39.0-51.0) Mean Corpuscular Volume 92.0 FL (80.0-100.0) Mean Corpuscular Hemoglobin 30.5 PG (27.0-34.0) Mean Corpuscular Hemoglobin Concent 33.2 % (32.0-36.0) Red Cell Distribution Width 17.9 % (11.6-17.2) Platelet Count 36 TH/MM3 (150-450) Mean Platelet Volume 7.9 FL (7.0-11.0) Neutrophils (%) (Auto) 50.7 % (16.0-70.0) Lymphocytes (%) (Auto) 36.0 % (9.0-44.0) Monocytes (%) (Auto) 11.3 % (0.0-8.0) Eosinophils (%) (Auto) 1.5 % (0.0-4.0) Basophils (%) (Auto) 0.5 % (0.0-2.0) Neutrophils # (Auto) 1.0 TH/MM3 (1.8-7.7) Lymphocytes # (Auto) 0.7 TH/MM3 (1.0-4.8) Monocytes # (Auto) 0.2 TH/MM3 (0-0.9) Eosinophils # (Auto) 0.0 TH/MM3 (0-0.4) Basophils # (Auto) 0.0 TH/MM3 (0-0.2) CBC Comment AUTO DIFF Differential Comment AUTO DIFF CONFIRMED Toxic Granulation 2+ (NORMAL) Platelet Estimate LOW (NORMAL) Platelet Morphology Comment NORMAL (NORMAL) Total Protein 6.3 GM/DL (6.4-8.2) Albumin 2.1 GM/DL (3.4-5.0) Alkaline Phosphatase 91 U/L (45-117) Aspartate Amino Transf (AST/SGOT) 17 U/L (15-37) Alanine Aminotransferase (ALT/SGPT) 13 U/L (12-78) Total Bilirubin 1.8 MG/DL (0.2-1.0) Ammonia LESS THAN 10 MCMOL/L Prothrombin Time 15.5 SEC (9.8-11.6) Prothromb Time International Ratio 1.5 RATIO Activated Partial Thromboplast Time 38.2 SEC (24.3-30.1) Lactate Dehydrogenase 163 U/L (87-241) HIV (1&2) Antibody NEGATIVE (NEGATIVE) Test 10/20/17 07:25 10/20/17 11:45 White Blood Count 1.6 TH/MM3 (4.0-11.0) Red Blood Count 3.42 MIL/MM3 (4.50-5.90) Hemoglobin 10.5 GM/DL (13.0-17.0) Hematocrit 31.5 % (39.0-51.0) Mean Corpuscular Volume 92.1 FL (80.0-100.0) Mean Corpuscular Hemoglobin 30.8 PG (27.0-34.0) Mean Corpuscular Hemoglobin Concent 33.4 % (32.0-36.0) Red Cell Distribution Width 17.8 % (11.6-17.2) Platelet Count 32 TH/MM3 (150-450) Mean Platelet Volume 8.2 FL (7.0-11.0) Neutrophils (%) (Auto) 54.7 % (16.0-70.0) Lymphocytes (%) (Auto) 36.1 % (9.0-44.0) Monocytes (%) (Auto) 6.4 % (0.0-8.0) Eosinophils (%) (Auto) 2.4 % (0.0-4.0) Basophils (%) (Auto) 0.4 % (0.0-2.0) Neutrophils # (Auto) 0.9 TH/MM3 (1.8-7.7) Lymphocytes # (Auto) 0.6 TH/MM3 (1.0-4.8) Monocytes # (Auto) 0.1 TH/MM3 (0-0.9) Eosinophils # (Auto) 0.0 TH/MM3 (0-0.4) Basophils # (Auto) 0.0 TH/MM3 (0-0.2) CBC Comment AUTO DIFF Differential Total Cells Counted 100 Neutrophils % (Manual) 62 % (16-70) Lymphocytes % 22 % (9-44) Monocytes % 13 % (0-8) Eosinophils % 3 % (0-4) Neutrophils # (Manual) 1.0 TH/MM3 (1.8-7.7) Nucleated Red Blood Cells 1 /100 WBC (0-0) Differential Comment FINAL DIFF MANUAL Toxic Vacuolation PRESENT (NONE SEEN) Platelet Estimate LOW (NORMAL) Platelet Morphology Comment NORMAL (NORMAL) Blood Urea Nitrogen 15 MG/DL (7-18) Creatinine 0.30 MG/DL (0.60-1.30) Random Glucose 89 MG/DL (74-106) Total Protein 6.1 GM/DL (6.4-8.2) Albumin 2.0 GM/DL (3.4-5.0) Calcium Level 8.2 MG/DL (8.5-10.1) Alkaline Phosphatase 83 U/L (45-117) Aspartate Amino Transf (AST/SGOT) 18 U/L (15-37) Alanine Aminotransferase (ALT/SGPT) 9 U/L (12-78) Total Bilirubin 1.6 MG/DL (0.2-1.0) Sodium Level 144 MEQ/L (136-145) Potassium Level 3.1 MEQ/L (3.5-5.1) Chloride Level 103 MEQ/L (98-107) Carbon Dioxide Level 36.5 MEQ/L (21.0-32.0) Anion Gap 5 MEQ/L (5-15) Estimat Glomerular Filtration Rate 300 ML/MIN (>89) Prothrombin Time 15.4 SEC (9.8-11.6) Prothromb Time International Ratio 1.5 RATIO Activated Partial Thromboplast Time 36.9 SEC (24.3-30.1) Fibrinogen 157 mg/dL (227-377) (Bing Arguello) Result Diagram: 10/20/17 0725 10/20/17 0725 Microbiology Microbiology Date/Time Source Procedure Growth Status 10/18/17 15:30 Fluid Pleural Fluid Fungal Smear - Final NO FUNGAL ELEMENTS SEEN. Resulted 10/18/17 15:30 Fluid Pleural Fluid Fungal Culture Pending Resulted 10/18/17 15:30 Fluid Pleural Fluid Acid Fast Stain Pending Received 10/18/17 15:30 Fluid Pleural Fluid Mycobacterial Culture Pending Received 10/18/17 15:30 Fluid Pleural Fluid Gram Stain - Final Resulted 10/18/17 15:30 Fluid Pleural Fluid Body Fluid Culture - Preliminary NO GROWTH IN 48 HOURS. Resulted Imaging Last Impressions Chest X-Ray 10/19/17 0000 Signed Impressions: Service Date/Time: Thursday, October 19, 2017 16:12 - CONCLUSION: Slight worsening pulmonary edema, otherwise not significantly changed. Brian Flower MD Abdomen Ultrasound 10/19/17 0000 Signed Impressions: Service Date/Time: Thursday, October 19, 2017 08:28 - CONCLUSION: 1. Cirrhotic appearing liver. There is ascites seen in the upper abdomen. 2. Gallstones and a thickened gallbladder wall. This can be correlated with any signs of cholecystitis. Gallbladder wall thickening can be seen with hepatic disease. 3. 5.4 cm abdominal aortic aneurysm. 4. Mild to moderate dilatation of the left collecting system. 5. Splenomegaly. This may be secondary to portal hypertension and the patient's cirrhosis. Nicko Camacho MD Chest Ultrasound 10/17/17 0000 Signed Impressions: Service Date/Time: Tuesday, October 17, 2017 22:23 - CONCLUSION: Moderate to large pleural effusion. Patient was marked for thoracentesis. Edilson Abreu MD CT Angiography 10/16/17 0000 Signed Impressions: Service Date/Time: September 14:10 - CONCLUSION: 1. No evidence of pulmonary embolism 2. Moderate to large left-sided pleural effusion with compressive atelectasis of the left lower lung 3. Small right-sided pleural effusion with atelectasis in the right lung base. 4. Ascites in the upper abdomen. Justo Florian MD Renal Ultrasound 10/04/17 0000 Signed Impressions: Service Date/Time: Wednesday, October 04, 2017 10:29 - CONCLUSION: 1. Small nonobstructing 3 mm calyceal calculus in the mid left kidney. 2. 1.4 cm cyst in the inferior pole of the right kidney. 3. Small amount of ascites. Rohan Leigh MD Aorta CTA 10/01/17 1556 Signed Impressions: Service Date/Time: Sunday, October 01, 2017 17:11 - CONCLUSION: 1. 7.3 cm infrarenal abdominal aortic aneurysm with laminated wall as described above. Findings suggest a contained rupture which may be chronic and possible associated aortic wall inflammation indicating aortitis. 2. Chronic liver disease characteristic of cirrhosis. 3. Splenomegaly 4. Cholelithiasis 5. Moderate ascites 6. No evidence of portal vein thrombosis or Budd-Chiari syndrome. 7. COPD with bibasilar airspace disease and parapneumonic effusions. 1. Herve Berumen MD Thoracentesis Ultrasound 10/01/17 0000 Signed Impressions: Service Date/Time: Sunday, October 01, 2017 11:27 - CONCLUSION: Uncomplicated ultrasound guided thoracentesis. Marc Alfredo MD Cyst Biopsy Asp-Paracentesis US 10/01/17 0000 Signed Impressions: Service Date/Time: Sunday, October 01, 2017 09:53 - CONCLUSION: Uncomplicated ultrasound guided paracentesis. Marc Alfredo MD Abdomen/Pelvis CT 09/30/17 0000 Signed Impressions: Service Date/Time: Sunday, October 01, 2017 02:21 - CONCLUSION: 1. 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 2. Moderate pleural effusions and moderate amount of abdominal pelvic ascites. 3. 2 calcified gallstones. David Blunt MD Chest CT 09/28/17 0000 Signed Impressions: Service Date/Time: Friday, September 29, 2017 01:23 - CONCLUSION: 1. The dominant opacity seen on recent chest x-ray represents loculated pleural effusion in the superior major fissure. 2. Small bilateral pleural effusions, mild consolidative infiltrates in the right lower lung, and right upper abdominal ascites. 3. Calcified gallstones. David Blunt MD Procedures 09/29: EGD/colonoscopy. . (Bing Arguello) Assessment and Plan Disease Oriented Problem List: (1) Anemia (2) GI bleed (3) Hypokalemia (4) Hepatitis C (5) Pancytopenia (6) AAA (abdominal aortic aneurysm) (7) Ascites (8) Hematuria (9) Diarrhea (10) Hypoxia Symptom Scale: (1) Dyspnea and respiratory abnormalities (2) Weakness (3) Decreased appetite Pertinent Non-Medical Issues Psychosocial:Lives in [place] most of the year but visits [facility] every winter. He has been staying in the [facility] for one month. Denies any family in [facility] or [place] and states he has only one cousin in [place] with whom he has had no contact for several years. 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 He was never and has no children. . Spiritual: Declines senior mobile web developer, however is aware that one is available. Legal: At this time he appears able to make decisions for himself. He has named his friend Iwona Ozuna (first) and his proposal manager writer Maríalori Sherman ( alternate) as his healthcare surrogates. Ethical issues impacting care: None noted at this time. . Important Contacts Friend - Iwona Ozuna Friend/proposal manager writer - María Sherman . Prognosis His prognosis is poor. Imaging shows a moderate to large left-sided pleural effusion with compressive atelectasis of the left lower lung and ascites in the upper abdomen. He has undergone paracentesis of 1 L during hospitalization. His liver is noted to be cirrhotic, he is auto anticoagulated and had a GI bleed on admission. He has an extensive smoking history of over 120 pack years and is hypoxic, requiring a 10 L simple mask to maintain minimal saturation. In addition to the compromise of his liver and lungs, he has pancytopenia, felt to be related to his liver disease and recent sepsis. He is at significant risk of continued decline and recurrent hospitalizations. . Code Status: Alternative Code (intubation only) Plan PLAN: Legal decision maker: At this time he is able to make his own decisions, but has named his friend Iwona as his first health care surrogate and his proposal manager writer María as his alternate. Goals: Willing to go to rehabilitation to try to regain strength, refusing CPR, drugs, shock. CODE STATUS: Alternate code. Will accept intubation but no CPR, drugs or shock. SYMPTOMS: Weakness, dyspnea, decreased appetite * Weakness: Likely multi-factorial to include protein calorie malnutrition, hypoxemia and recent sepsis. He has not been amenable to participating in physical therapy, frequently declining services. When he has participated he is a 2 person assist for transfer from bed to chair. He is receiving mirtazapine for appetite stimulant. Without adequate nutrition and effort on the part of the patient he is likely to continue to decline. * Dyspnea: He remains on high flow nasal cannula O2 at 50%. Status post thoracentesis of 1300 mL serosanguineous fluid.. This is also affected by his ascites and upward pressure on the diaphragm as well as his atelectasis and extensive smoking history. He was recently evaluated for pulmonary embolus and was found negative. He is at high risk for intubation, which this patient states he will accept. * Decreased appetite: Likely multi-factorial to include ascites, difficulty breathing and weakness. Patient states he has had no appetite for some time. He is receiving mirtazapine which has not been significantly effective for his lack of appetite. He may benefit from Marinol. Palliative care will continue to follow the patient during hospital course as condition evolves, to assist patient/decision-maker with understanding of their medical conditions, weighing benefits/burdens of treatment options, for clarification of goals of treatment. Additionally will assist with any symptoms of palliative concern. . (Bing Arugello) Attestation To help prompt me to consider important information that might be impacting today's encounter and assessment, information from prior notes written by myself or my colleagues may have been "brought forward" into today's note. My signature on this note, however, is an attestation that I personally performed the exam, history, and/or decision-making noted today, and, unless otherwise indicated, the interactions with patient, family, and staff as well as the review of records all occurred today. I also attest that the listed assessment and stated plan reflect my best clinical judgment today based on the combination of historical information, prior notes, and today's exam/ interactions. When time spent is documented, it refers only to time spent today by the signer, or if indicated, combined time spent today by collaborating physician/nurse practitioner. . (Bing Arguello) Collaborating MD Comments Chart reviewed. Case discussed with palliative care [employer]. Above [employer] note reviewed and I concur. . (Chase Cm MD) Bing Arguello Oct 20, 2017 15:32 Chase Cm MD Oct 28, 2017 14:44
[2017-10-20] MEDS: FILGRASTIM INJ 300 MCG in DEXTROSE 5% IN WATER INJ 24 ML IV SCH ×2 (15:59)
[2017-10-20] MEDS ORDERED: CHLORHEXIDINE GLUCONATE 2 % 1 PACK (2 CLOTHS)(extra cloths) TOPICAL PRN (20:30)
[2017-10-20] MEDS: NYSTATIN 100,000 U/GM PWD 15 GM BTL TOPICAL SCH (21:00)
[2017-10-21] VITALS (14 sets, daily range): BP systolic 87–102; BP diastolic 56–73; PULSE 84–110; RESP 17–22; TEMP 97.9–98.6; O2SAT 92–100
[2017-10-21] MEDS: CHLORHEXIDINE GLUCONATE 2 % 1 PACK (2 CLOTHS)(taper/protocol) TOPICAL SCH (02:27)
[2017-10-21] MEDS: PANTOPRAZOLE SODIUM 40 MG VIAL IV PUSH SCH ×2 (02:27→15:09)
[2017-10-21 05:21] LABS: HEMATOCRIT 30.7 % (39.0-51.0); HEMOGLOBIN 10.2 GM/DL (13.0-17.0); MEAN CELL VOLUME 92.4 FL (80.0-100.0); MEAN CORPUSCULAR HEMOGLOBIN 30.7 PG (27.0-34.0); MEAN CORPUSCULAR HGB CONC 33.3 % (32.0-36.0); MEAN PLATELET VOLUME 8.3 FL (7.0-11.0); PLATELET COUNT 31 TH/MM3 (150-450); RED BLOOD COUNT 3.32 MIL/MM3 (4.50-5.90); RED CELL DISTRIBUTION WIDTH 17.5 % (11.6-17.2)
[2017-10-21 05:42] LABS: ALBUMIN 1.8 GM/DL (3.4-5.0); ALT (GPT) 10 U/L (12-78); AST (GOT) 21 U/L (15-37); BLOOD UREA NITROGEN 15 MG/DL (7-18); CHLORIDE 103 MEQ/L (98-107); CREATININE 0.38 MG/DL (0.60-1.30); GLOMERULAR FILTRATION RATE 228 ML/MIN (>89); GLUCOSE,RANDOM 61 MG/DL (74-106); MAGNESIUM 1.4 MG/DL (1.5-2.5); PHOSPHORUS 2.7 MG/DL (2.5-4.9); SODIUM (NA) 144 MEQ/L (136-145)
[2017-10-21 05:44] LABS: ALKALINE PHOSPHATASE 86 U/L (45-117); TOTAL BILIRUBIN ADULT 1.6 MG/DL (0.2-1.0)
[2017-10-21 07:03] LABS: BANDS 33 % (0-6); CORRECTED NUCLEATED RBC 1 /100 WBC (0-0); LYMPHOCYTES 1 % (9-44); METAMYELOCYTES 1 % (0-1); MONOCYTES 3 % (0-8); NEUTROPHIL # MANUAL DIFF 4.8 TH/MM3 (1.8-7.7); NUCLEATED RED BLOOD CELL 1 (0-0); POLYS (SEG NEUTROPHILS) 62 % (16-70)
[2017-10-21 07:04] LABS: TOXIC GRANULATION 1+ (NORMAL); TOXIC VACUOLATION PRESENT (NONE SEEN)
[2017-10-21] MEDS: SPIRONOLACTONE 25 MG TAB PO SCH ×2 (08:47→16:31)
[2017-10-21] MEDS: FLUoxetine HCL 20 MG CAP PO SCH (08:47)
[2017-10-21] MEDS: FUROSEMIDE 20 MG TAB PO SCH (08:47)
[2017-10-21] MEDS: FOLIC ACID 1 MG TAB PO SCH (08:47)
[2017-10-21] MEDS: POTASSIUM CHLORIDE 20 MEQ CONTROLLED RELEASE TAB PO SCH ×3 (08:47→20:40)
[2017-10-21] MEDS: METOPROLOL TARTRATE 25 MG TAB PO SCH ×2 (08:47→20:40)
[2017-10-21] MEDS: NYSTATIN 100,000 U/GM PWD 15 GM BTL TOPICAL SCH ×2 (08:47→20:40)
[2017-10-21] MEDS: SODIUM CHLORIDE 0.9% FLUSH 10 ML FLUSH IV FLUSH SCH ×2 (08:48→20:40)
[2017-10-21] MEDS: SODIUM CHLOR 0.9% 1000 ML INJ 1,000 ML IV SCH ×2 (08:48→22:45)
[2017-10-21] MEDS ORDERED: MAGNESIUM SULFATE INJ 2 GM in SODIUM CHLORIDE 0.9% INJ 96 ML IV PRN (11:00)
[2017-10-21] MEDS ORDERED: MAGNESIUM SULFATE INJ 4 GM in SODIUM CHLORIDE 0.9% INJ 92 ML IV PRN (11:00)
[2017-10-21] MEDS ORDERED: POTASSIUM PHOSPHATE MONOBASIC 500 MG TAB PO PRN (11:00)
[2017-10-21] MEDS ORDERED: POTASSIUM PHOSPHATE INJ 30 MMOL in SODIUM CHLOR 0.9% 250 ML INJ 250 ML IV PRN (11:00)
[2017-10-21] MEDS ORDERED: POTASSIUM CHLOR 20 MEQ PREMIX 100 ML IV PRN ×2 (11:00)
[2017-10-21] MEDS ORDERED: POTASSIUM CHLOR 40 MEQ PREMIX 100 ML IV PRN ×2 (11:00)
[2017-10-21] MEDS ORDERED: POTASSIUM PHOSPHATE MONOBASIC 500 MG TAB PO/TUBE PRN (11:00)
[2017-10-21] MEDS ORDERED: POTASSIUM CHLORIDE 25 MEQ EFFERVESCENT TAB PO PRN (11:00)
[2017-10-21] MEDS ORDERED: SODIUM PHOSPHATE INJ 30 MMOL in SODIUM CHLOR 0.9% 250 ML INJ 240 ML IV PRN (11:00)
[2017-10-21] MEDS ORDERED: MAGNESIUM OXIDE 400 MG TAB PO PRN (11:00)
--- NOTE | 2017-10-21 11:06 | PD.ONC.PN ---
Subjective Subjective Remarks Afebrile overnight. Patient resting in bed. Tired of being poked and prodded. "Why can't you all just leave me alone?" No bleeding. Just had u/s to determine if he has enough ascites for drainage. Objective Data Date Time Temp Pulse Resp B/P (MAP) Pulse Ox O2 Delivery O2 Flow Rate FiO2 10/21/17 10:00 100 10/21/17 08:00 98.1 96 18 101/70 (80) 92 10/21/17 08:00 96 10/21/17 08:00 92 45 10/21/17 07:55 95 high flow 35.00 40 10/21/17 06:00 96 10/21/17 04:00 97.9 91 17 98/60 (73) 96 10/21/17 04:00 91 10/21/17 04:00 96 35.00 45 10/21/17 02:00 86 10/21/17 00:00 98 35.00 50 10/21/17 00:00 84 10/21/17 00:00 97.9 84 17 93/57 (69) 98 10/20/17 23:00 101 18 109/63 (78) 94 10/20/17 23:00 101 10/20/17 22:00 101 22 108/59 (75) 94 10/20/17 22:00 101 10/20/17 21:00 102 18 98/70 (79) 95 10/20/17 21:00 96 High Flow Nasal Cannula 35.00 50 10/20/17 21:00 102 10/20/17 20:00 96 35.00 50 10/20/17 20:00 98.0 96 19 108/59 (75) 96 10/20/17 20:00 96 10/20/17 18:00 101 10/20/17 16:00 105 10/20/17 16:00 97.5 105 22 109/62 (78) 96 10/20/17 16:00 96 50 10/20/17 14:00 97 10/20/17 12:00 92 10/20/17 12:00 97.6 92 15 112/71 (85) 94 10/20/17 12:00 94 50 10/21/17 10/21/17 10/21/17 07:00 15:00 23:00 Intake Total 300 ml Output Total 350 ml Balance -50 ml Result Diagram: 10/21/17 0349 10/21/17 0348 Laboratory Results Laboratory Tests Test 10/20/17 11:45 10/20/17 20:00 10/21/17 03:48 10/21/17 03:49 Prothrombin Time 15.4 SEC Prothromb Time International Ratio 1.5 RATIO Activated Partial Thromboplast Time 36.9 SEC Fibrinogen 157 mg/dL Nasal Screen MRSA (PCR) MRSA NOT DETECTED Blood Urea Nitrogen 15 MG/DL Creatinine 0.38 MG/DL Random Glucose 61 MG/DL Total Protein 6.0 GM/DL Albumin 1.8 GM/DL Calcium Level 8.0 MG/DL Phosphorus Level 2.7 MG/DL Magnesium Level 1.4 MG/DL Alkaline Phosphatase 86 U/L Aspartate Amino Transf (AST/SGOT) 21 U/L Alanine Aminotransferase (ALT/SGPT) 10 U/L Total Bilirubin 1.6 MG/DL Sodium Level 144 MEQ/L Potassium Level 3.4 MEQ/L Chloride Level 103 MEQ/L Carbon Dioxide Level 35.0 MEQ/L Anion Gap 6 MEQ/L Estimat Glomerular Filtration Rate 228 ML/MIN White Blood Count 5.0 TH/MM3 Red Blood Count 3.32 MIL/MM3 Hemoglobin 10.2 GM/DL Hematocrit 30.7 % Mean Corpuscular Volume 92.4 FL Mean Corpuscular Hemoglobin 30.7 PG Mean Corpuscular Hemoglobin Concent 33.3 % Red Cell Distribution Width 17.5 % Platelet Count 31 TH/MM3 Mean Platelet Volume 8.3 FL CBC Comment AUTO DIFF Differential Total Cells Counted 100 Neutrophils % (Manual) 62 % Band Neutrophils % 33 % Lymphocytes % 1 % Monocytes % 3 % Neutrophils # (Manual) 4.8 TH/MM3 Metamyelocytes 1 % Nucleated Red Blood Cells 1 /100 WBC Differential Comment FINAL DIFF MANUAL Toxic Granulation 1+ Toxic Vacuolation PRESENT Platelet Estimate LOW Platelet Morphology Comment NORMAL Test 10/21/17 10:45 Culture Results Microbiology Date/Time Source Procedure Growth Status 10/18/17 15:30 Fluid Pleural Fluid Fungal Smear - Final NO FUNGAL ELEMENTS SEEN. Resulted 10/18/17 15:30 Fluid Pleural Fluid Fungal Culture Pending Resulted 10/18/17 15:30 Fluid Pleural Fluid Acid Fast Stain Pending Received 10/18/17 15:30 Fluid Pleural Fluid Mycobacterial Culture Pending Received 10/18/17 15:30 Fluid Pleural Fluid Gram Stain - Final Complete 10/18/17 15:30 Fluid Pleural Fluid Body Fluid Culture - Final NO GROWTH IN 72 HRS.--AEROBICALLY OR ... Complete Administered Medications Medications (Trade) Dose Ordered Sig/Jailene Route PRN Reason Start Time Stop Time Status Last Admin Dose Admin Sodium Chloride (NS Flush) 2 ml BID IV FLUSH 09/28/17 13:45 10/21/17 08:48 Pantoprazole Sodium (Protonix Inj) 40 mg Q12H IV PUSH 09/28/17 14:00 10/21/17 02:27 Collagenase (Santyl Oint) 1 applic DAILY TOPICAL 09/29/17 12:45 10/19/17 09:50 Diphenhydramine HCl (Benadryl) 25 mg Q4H PRN PO SEE LABEL COMMENTS 10/01/17 09:30 10/01/17 09:30 Diphenhydramine HCl (Benadryl 2% Cream) 1 applic TID PRN TOPICAL ITCHING 10/02/17 10:00 10/02/17 10:23 Folic Acid (Folate) 1 mg DAILY PO 10/02/17 11:00 10/21/17 08:47 Ertapenem 1000 mg/ Sodium Chloride 100 ml @ 200 mls/hr Q24H IV 10/06/17 14:00 Future hold 10/20/17 14:01 Mirtazapine (Remeron) 15 mg HS PO 10/16/17 21:00 Future Hold 10/18/17 21:39 Metoprolol Tartrate (Lopressor) 12.5 mg Q12HR PO 10/16/17 21:00 10/20/17 22:45 Spironolactone (Aldactone) 25 mg BID@18 PO 10/18/17 18:00 10/21/17 08:47 Potassium Chloride (KCl) 20 meq Q12HR PO 10/18/17 21:00 10/21/17 08:47 Furosemide (Lasix) 20 mg DAILY PO 10/19/17 09:00 10/21/17 08:47 Nystatin (Mycostatin Powder) 1 applic Q12HR TOPICAL 10/19/17 09:00 10/21/17 08:47 Fluoxetine HCl (PROzac) 20 mg DAILY PO 10/19/17 09:00 10/21/17 08:47 Haloperidol Lactate (Haldol Inj) 0.5 mg TID PRN IV AGITATION 10/19/17 10:00 10/19/17 09:55 Dronabinol (Marinol) 2.5 mg BID@11,16 PO 10/20/17 11:00 10/20/17 16:33 Filgrastim 300 mcg/Dextrose 25 ml @ 100 mls/hr DAILY@14 IV 10/20/17 14:00 10/21/17 14:14 10/20/17 15:59 Miscellaneous Information Patient in critical care unit? Ass... [id number] .XX 10/20/17 20:30 10/20/17 20:30 Chlorhexidine Gluconate (Chlorhexidine 2% Cloth) 3 pack DAILY@04 TOPICAL 10/21/17 04:00 10/25/17 04:01 10/21/17 02:27 Sodium Chloride 1,000 ml @ 84 mls/hr [id number] IV 10/21/17 08:00 10/21/17 08:48 Objective Remarks GENERAL: Chronically ill appearing elderly male, lying in bed. He is sleeping on approach, but awakens to voice. on high flow O2 via NC. SKIN: Warm and dry. red macular rash on trunk and extremities. the rash stops at the ankle line and is blanchable. worsening of rash is noted around tele sticker placement. HEAD: Normocephalic. EYES: No injection or drainage. NECK: Supple, trachea midline. CARDIOVASCULAR: +S1/S2, mild tachycardia. RESPIRATORY: anterior post with scattered rhonchi. GASTROINTESTINAL: Abdomen distended with ascites. EXTREMITIES: No cyanosis NEUROLOGICAL: awake. does not know if it is day or night. oriented to place and self. Assessment/Plan Problem List: (1) Pancytopenia ICD Codes: D61.818 - Other pancytopenia Assessment 66y/o male with pancytopenia and failure to thrive. --history of hepatitis C diagnosed in the 1980s;states he was treated for the hepatitis C and this was "cleared." Repeat hepatitis C titers this hospitalization indicate low circulating hepatitis C vital titers. --CT angiogram showed cirrhotic-appearing liver with splenomegaly and moderate ascites. --likely has baseline pancytopenia due to cirrhosis and splenomegaly with further drop in the white blood cell and platelet count due to recent sepsis. Plan 1. Pancytopenia: appears to be chronic d/t liver dysfunction. may be some acute component d/t infection as well. no neupogen needed today. 2. check coags today. 3. would transfuse for bleeding or platelets less than 20K, hgb less than 7.5mg/ dL and fibrinogen less than 100. Maria Elena Gómez Oct 21, 2017 11:06
[2017-10-21 11:24] LABS: INTERNATIONAL NORMALIZED RATIO 1.6 RATIO; PROTHROMBIN TIME - PATIENT 16.1 SEC (9.8-11.6)
--- NOTE | 2017-10-21 11:30 | HHI.FPPN ---
Subjective Remarks Patient seen and examined this morning. States he is doing well. No acute events overnight. States he continues to have fecal incontinence. Added today that his fecal incontinence has been present since August. Continues to have decreased appetite, states he's wanting to eat "anything that taste good." No nausea, vomiting, fever, chills, abdominal pain, chest pain, shortness of breath. No other complaints. (Edilson Shoemaker MD R1) Objective Vitals Vital Signs Date Time Temp Pulse Resp B/P (MAP) Pulse Ox O2 Delivery O2 Flow Rate FiO2 10/21/17 10:00 100 10/21/17 08:00 98.1 96 18 101/70 (80) 92 10/21/17 08:00 96 10/21/17 08:00 92 45 10/21/17 07:55 95 high flow 35.00 40 10/21/17 06:00 96 10/21/17 04:00 97.9 91 17 98/60 (73) 96 10/21/17 04:00 91 10/21/17 04:00 96 35.00 45 10/21/17 02:00 86 10/21/17 00:00 98 35.00 50 10/21/17 00:00 84 10/21/17 00:00 97.9 84 17 93/57 (69) 98 10/20/17 23:00 101 18 109/63 (78) 94 10/20/17 23:00 101 10/20/17 22:00 101 22 108/59 (75) 94 10/20/17 22:00 101 10/20/17 21:00 102 18 98/70 (79) 95 10/20/17 21:00 96 High Flow Nasal Cannula 35.00 50 10/20/17 21:00 102 10/20/17 20:00 96 35.00 50 10/20/17 20:00 98.0 96 19 108/59 (75) 96 10/20/17 20:00 96 10/20/17 18:00 101 10/20/17 16:00 105 10/20/17 16:00 97.5 105 22 109/62 (78) 96 10/20/17 16:00 96 50 10/20/17 14:00 97 10/20/17 12:00 92 10/20/17 12:00 97.6 92 15 112/71 (85) 94 10/20/17 12:00 94 50 I/O 10/20/17 10/20/17 10/20/17 10/21/17 10/21/17 10/21/17 07:00 15:00 23:00 07:00 15:00 23:00 Intake Total 240 ml 605 ml 300 ml Output Total 250 ml 500 ml 350 ml Balance -10 ml 105 ml -50 ml Intake Oral 240 ml 480 ml 300 ml IV Total 125 ml Output Urine Total 250 ml 500 ml 250 ml Stool Total 100 ml # Voids 2 # Bowel Movements 0 1 (Edilson Shoemaker MD R1) Result Diagram: 10/21/17 0349 10/21/17 0348 Objective Remarks CONSTITUTIONAL/GEN: Cachectic male, lying in bed PSYCH/NEURO: AOx3. Flat affect. No CN defects. No peripheral motor/sensory defects. SKIN: Maculopapular rash extending from mid back along the left axilla and torso , spread to legs LUNGS: Decreased breath sounds bilaterally; normal rate. Patient on high flow nasal cannula CARDIOVASCULAR: Regular rhythm; mild tachycardia. No LE edema GI/ABD: soft, normal BS; no pain to palpation : catheter in place; Dark urine in schaefer bag (Edilson Shoemaker MD R1) A/P Assessment and Plan 66 yr old M Hep C, hx of heavy smoking (2ppd for 61 yrs), and chronic aspirin use presented to the ED with anemia and black tarry stools secondary to suspected GI bleed. Patient transferred to ICU 09/30 for ESBL E.coli sepsis. Patient hemodynamically stable for transfer to med/surg 10/03. Patient confused/ delirious with hypercarbia 10/19; transferred to ICU for BIPAP. Discharge Planning Case Management to assist with SNF placement Pending workup and management of multiple chronic issues (Edilson Shoemaker MD R1) Problem List: (1) Hypoxia ICD Codes: R09.02 - Hypoxemia Status: Acute Plan: 10/20: improved mental status. On high flow nasal cannula -Continue management in ICU Venous blood gas (10/09) -pH 7.4, pCO2 60, pO2 24, HCO3 37 -Pulmonology consulted, follow-up recommendations * s/p thoracentesis 10/18 * Incentive spirometry * DuoNeb 4 times a day, when necessary * Aldactone 25mg BID * Lasix 20mg IV daily * Wean O2 to keep sat<92 * Lasix 20 mg daily Impression: Patient has been on substantial O2 requirement via NC since admission; recently hypoxia 10/15 with O2 saturations in upper 70's. Associated with anemia. Decreased breath sounds on exam; no wheezing. No symptoms appreciated by patient, no tachypnea. History of tobacco abuse. CT revealed dominant opacity seen on recent CXR represents loculated pleural effusion in the superior major fissure. Small b/l pleural effusions, mild consolidative infiltrates in the right lower lung, and right upper abdominal ascites. Calcified gallstones. Echo on 10/01 shows EF of 60-65%, normal LV systolic function S/p thoracentesis 10/01/2017- pleural fluid negative for malignancy CXR (10/15): no change; small to moderate left effusion (no interval change from 10/12 (pulmonary vascular congestion, L sided effusion)) ABG (10/15): pH 7.42, pCO2 57, pO2 55, O2 sat 85% ABG (10/17): pH 7.44, PCO2 56, PO2 71 CTA (10/16/2017): without evidence of PE, left-sided pleural effusion, ascites noted s/p transfusion (8 total U pRBC; most recently 2 U 10/17/2017) s/p L thoracentesis 10/18- 1300ml serosanguineous fluid aspirated (2) Delirium ICD Codes: R41.0 - Disorientation, unspecified Status: Acute Plan: Ammonia wnl. Possible CO2 narcosis, no delirium today. -Continue O2 supplementation -Restart Dronabinol 2.5mg BID -Psychiatry consulted -Suspect delirium secondary to general medical condition -Consider initiating Haldol BID with titration to TID if needed; additional PRN Haldol for acute agitation; EKG if needed to assess QTC -Frequent reorientation/mobilization -Aggressive management of retention or constipation -Sitter preferred over restraints Impression: Worsening mental status per nursing staff with increased confusion. Patient somewhat disoriented on exam; no focal neurologic deficits. PMH alcholism, liver disease, COPD (3) Bacteremia ICD Codes: R78.81 - Bacteremia Status: Acute Plan: ID consulted, appreciate recommendations * E.coli ESBL sepsis, source is likely GI, questionable SBP * Continue Ertapenem 1000 mg IV q24h (10/02) x 6-8 weeks per ID History: Transferred to med/surg floor 10/03; previously transferred to ICU secondary to ESBL sepsis. Patient met sepsis criteria 09/29 due to tachycardic at 95-113 and hypotension 86/53 Lactic acid 1.4 09/29, Repeat lactic acid 1.5 s/p 500cc bolus of NS, MIVF 140mls/hr 09/29 * CT abd/pelvis w/o contrast done 09/30 revealed moderate size left pleural effusion, ascites, 5cm infrarenal abdominal aortic aneurysm and mesenteric stranding. * CTA 10/01 7.3 cm AAA, contained rupture, cirrhosis, splenomegaly, cholelithiasis, moderate ascites, no evident of protal vein thrombosis or Budd- Chiari syndrome, COPD with bibasilar airspace disease and parapneumonic effusions * 2-D echo - 60-65% EF * Left pleural effusion- thoracentesis with removal of 750 cc of dark yellow fluid. Fluid appeared transudative. * Ascites- paracentesis with removal of 1100 cc of yellow fluids. This appeared due to portal hypertension. * Possibility of aortoenteric fistula Cultures: Blood- Cultures 10/10 NGTD Staph hominis 10/06 (pansensitive) ESBL E Coli 09/29 (resistant, to Ampicillin, Unasyn, Cefazolin, Cefepime, Cefuroxime, Levofloxacin) Antibiotic history: Vancomycin (restarted 10/07-10/11) Vancomycin 1,250mg IV q12h (09/29-10/01) Zosyn 4.5 gm IV q6h (started 09/30-09/22) Azithromycin 250mg PO daily (10/01-10/04) (4) Pancytopenia ICD Codes: D61.818 - Other pancytopenia Plan: 10/19: Hgb 10.4. No reported bleeding Hem/Onc consulted, appreciate recs -Neupogen PRN per Hematology -Monitor CBC and transfuse as needed -Continue daily folate Impression: Pancytopenia; failure to thrive. Per Hem Onc, treated in / cleared but titers elevated during hospitalization. WBC down since admission, Hb stable, plts trending down since admission A/P CT and CTA - pelvic ascites, 7.3cm infrarenal AAA, calcified gallstones, moderate pleural effusions, cirrhosis, CTA S/P thoracentesis, paracentesis Transfusion history: 8 total U pRBC (most recently 2 U pRBC given 10/17), 1 U FFP, 1 U platelets transfused (5) Rash and nonspecific skin eruption ICD Codes: R21 - Rash and other nonspecific skin eruption Status: Acute Plan: petechiae vs contact dermatitis vs drug reaction -Careful with Benadryl due to anticholinergic effects, but may use PRN -Monitor for improvement or change -Follow-up infectious disease recommendations Impression: Rash extending from patient's back, moderately in left axilla, mildly on left chest. Noted on 10/18. Suspect petechiae (6) AAA (abdominal aortic aneurysm) ICD Codes: I71.4 - Abdominal aortic aneurysm, without rupture Plan: CT abd/pelvis w/o contrast done 09/30 5cm infrarenal abdominal aortic aneurysm Aorta CTA 7.3 cm infrarenal AAA with laminated wall, contained rupture which may be chronic and possible associated aortic wall inflammation indicating aortitis Vascular surgery consulted, appreciate recs [facility] confirms that no intervention at this time No intervention for AAA until infection cleared -Continue to follow at this time -Add metoprolol tartrate 12.5mg BID for tachycardia (7) GI bleed ICD Codes: K92.2 - Gastrointestinal hemorrhage, unspecified Status: Resolved Plan: GI consulted for mesenteric stranding and ascites, appreciate recommendations -Protonix 40mg IV BID -Supportive care -Sign off; consult as needed Avoid NSAIDs and anticoagulation EGD in 2 months Colonoscopy in 2 years History: Hb of 6.1 upon admission,1 month hx of black tarry stools, chronic aspirin use Hemoccult performed by RN in ED on 09/28- positive EGD/colonoscopy demonstrated hiatal hernia, gastric ulcer, erosive gastritis and colon polyp Duo/stomach biopsy- Stomach, reactive/chemical gastropathy with intestinal metaplasia. Colon, sigmoid, adenomatous polyp HCV quant, less than 15 IUs/ ml, less than 1.18 log IUs/mlAlpha-feto protein wnl Elevated ferritin levels due to underlying cirrhosis most likely AMSA, AMA negative A1AT 148 Hemochromatosis workup negative Transfusion history: 8 total U pRBC (most recently 2 U pRBC given 10/17), 1 U FFP, 1 U platelets transfused (8) Hematuria ICD Codes: R31.9 - Hematuria, unspecified Status: Resolved Plan: -UA 09/30 moderate occult blood, unlikely traumatic, patient has condom catheter -PSA wnl 0.15 -Renal US 10/04 demonstrated small nonobstructing 3mm calyceal calculus in the mid left kidney. 1.4 cm cyst in the inferior pole of the right kidney. -Urology consulted, recs appreciated Urologic impression: gross hematuria (now resolved) of indeterminate etiology; abnormal coagulation profile and thrombocytopenia likely contributing to the hematuria * manage conservatively for now * office follow up after hospital discharge when overall medical condition improved for cystoscopic evaluation [phone] * will be available as needed during present hospitalization (9) Hepatitis C ICD Codes: B19.20 - Unspecified viral hepatitis C without hepatic coma Status: Acute Plan: -To have paracentesis 10/21/17 -Continue to monitor LFT's Impression: Patient reports history of Hep C. Patient reports being treated in the s. LFTs wnl. alpha fetoprotein wnl HCV quant, less than 15 IUs/ml, less than 1.18 log IUs/ml A/P CT with moderate pelvic ascites, calcified gallstones. Abdominal US- cirrhotic appearing liver; ascites in upper abdomen. Gallstones and thickened gallbladder wall. Splenomegaly; assumed secondary to portal hypertension/cirrhosis (10) Abnormal chest x-ray ICD Codes: R93.8 - Abnormal findings on diagnostic imaging of other specified body structures Plan: Impression: Heavy smoker. Mass 2.51 x 3.86 found on CXR. Small free- flowing right pleural effusion at the base. CT revealed dominant opacity seen on recent CXR represents loculated pleural effusion in the superior major fissure. Small b/l pleural effusions, mild consolidative infiltrates in the right lower lung, and right upper abdominal ascites. Calcified gallstones. S/p thoracentesis 10/01/2017- pleural fluid negative for malignancy (11) Decreased appetite ICD Codes: R63.0 - Anorexia Status: Acute Plan: -Will attempt to initiate tube feedings if continued failure to eat -Continue to monitor intake -Psychiatry consulted -Hold Remeron while delirious -Marinol restarted -Will start Prozac 20mg daily Impression: Lack of oral intake during hospitalization in association with flat affect. Suspect possible depression as etiology. Patient agreeable to tube feedings (12) RALF (acute kidney injury) ICD Codes: N17.9 - Acute kidney failure, unspecified Status: Resolved Plan: -Resolved -Continue to monitor Impression: RALF secondary to dehydration BUN 28 and Cr 0.53 upon admission (13) Sacral wound ICD Codes: S31.000A - Unspecified open wound of lower back and pelvis without penetration into retroperitoneum, initial encounter Plan: Unstageable sacral wound, 3cm x 6cm Wound care consulted, recommendations appreciated 1) Cleanse sacral wound with normal saline,pat dry. 2) Apply skin prep to gibran wound 3) Santyl josé thick to wound bed 4) Cover with Maxorb 2 cut to fit. 5) Cover with dry dressing (boarder gauze) 6) Change dressing Daily (14) Nutrition, metabolism, and development symptoms ICD Codes: R63.8 - Other symptoms and signs concerning food and fluid intake Plan: Fluids: PO due to fluid overload Diet: Lack of PO intake; Regular Basic diet Electrolytes: monitor and replace as needed Other: Case management consulted GI ppx: Protonix 40mg IV q12h DVT ppx: SCDs (Edilson Shoemaker MD R1) Problem List: (1) Hypoxia ICD Codes: R09.02 - Hypoxemia Status: Acute Plan: 10/20: improved mental status. On high flow nasal cannula -Continue management in ICU Venous blood gas (10/09) -pH 7.4, pCO2 60, pO2 24, HCO3 37 -Pulmonology consulted, follow-up recommendations * s/p thoracentesis 10/18 * Incentive spirometry * DuoNeb 4 times a day, when necessary * Aldactone 25mg BID * Lasix 20mg IV daily * Wean O2 to keep sat<92 * Lasix 20 mg daily Impression: Patient has been on substantial O2 requirement via NC since admission; recently hypoxia 10/15 with O2 saturations in upper 70's. Associated with anemia. Decreased breath sounds on exam; no wheezing. No symptoms appreciated by patient, no tachypnea. History of tobacco abuse. CT revealed dominant opacity seen on recent CXR represents loculated pleural effusion in the superior major fissure. Small b/l pleural effusions, mild consolidative infiltrates in the right lower lung, and right upper abdominal ascites. Calcified gallstones. Echo on 10/01 shows EF of 60-65%, normal LV systolic function S/p thoracentesis 10/01/2017- pleural fluid negative for malignancy CXR (10/15): no change; small to moderate left effusion (no interval change from 10/12 (pulmonary vascular congestion, L sided effusion)) ABG (10/15): pH 7.42, pCO2 57, pO2 55, O2 sat 85% ABG (10/17): pH 7.44, PCO2 56, PO2 71 CTA (10/16/2017): without evidence of PE, left-sided pleural effusion, ascites noted s/p transfusion (8 total U pRBC; most recently 2 U 10/17/2017) s/p L thoracentesis 10/18- 1300ml serosanguineous fluid aspirated (2) Delirium ICD Codes: R41.0 - Disorientation, unspecified Status: Acute Plan: Ammonia wnl. Possible CO2 narcosis, no delirium today. -Continue O2 supplementation -Restart Dronabinol 2.5mg BID -Psychiatry consulted -Suspect delirium secondary to general medical condition -Consider initiating Haldol BID with titration to TID if needed; additional PRN Haldol for acute agitation; EKG if needed to assess QTC -Frequent reorientation/mobilization -Aggressive management of retention or constipation -Sitter preferred over restraints Impression: Worsening mental status per nursing staff with increased confusion. Patient somewhat disoriented on exam; no focal neurologic deficits. PMH alcholism, liver disease, COPD (3) Bacteremia ICD Codes: R78.81 - Bacteremia Status: Acute Plan: ID consulted, appreciate recommendations * E.coli ESBL sepsis, source is likely GI, questionable SBP * Continue Ertapenem 1000 mg IV q24h (10/02) x 6-8 weeks per ID History: Transferred to med/surg floor 10/03; previously transferred to ICU secondary to ESBL sepsis. Patient met sepsis criteria 09/29 due to tachycardic at 95-113 and hypotension 86/53 Lactic acid 1.4 09/29, Repeat lactic acid 1.5 s/p 500cc bolus of NS, MIVF 140mls/hr 09/29 * CT abd/pelvis w/o contrast done 09/30 revealed moderate size left pleural effusion, ascites, 5cm infrarenal abdominal aortic aneurysm and mesenteric stranding. * CTA 10/01 7.3 cm AAA, contained rupture, cirrhosis, splenomegaly, cholelithiasis, moderate ascites, no evident of protal vein thrombosis or Budd- Chiari syndrome, COPD with bibasilar airspace disease and parapneumonic effusions * 2-D echo - 60-65% EF * Left pleural effusion- thoracentesis with removal of 750 cc of dark yellow fluid. Fluid appeared transudative. * Ascites- paracentesis with removal of 1100 cc of yellow fluids. This appeared due to portal hypertension. * Possibility of aortoenteric fistula Cultures: Blood- Cultures 10/10 NGTD Staph hominis 10/06 (pansensitive) ESBL E Coli 09/29 (resistant, to Ampicillin, Unasyn, Cefazolin, Cefepime, Cefuroxime, Levofloxacin) Antibiotic history: Vancomycin (restarted 10/07-10/11) Vancomycin 1,250mg IV q12h (09/29-10/01) Zosyn 4.5 gm IV q6h (started 09/30-09/22) Azithromycin 250mg PO daily (10/01-10/04) (4) Pancytopenia ICD Codes: D61.818 - Other pancytopenia Plan: 10/19: Hgb 10.4. No reported bleeding Hem/Onc consulted, appreciate recs -Neupogen PRN per Hematology -Monitor CBC and transfuse as needed -Continue daily folate Impression: Pancytopenia; failure to thrive. Per Hem Onc, treated in / cleared but titers elevated during hospitalization. WBC down since admission, Hb stable, plts trending down since admission A/P CT and CTA - pelvic ascites, 7.3cm infrarenal AAA, calcified gallstones, moderate pleural effusions, cirrhosis, CTA S/P thoracentesis, paracentesis Transfusion history: 8 total U pRBC (most recently 2 U pRBC given 10/17), 1 U FFP, 1 U platelets transfused (5) Rash and nonspecific skin eruption ICD Codes: R21 - Rash and other nonspecific skin eruption Status: Acute Plan: petechiae vs contact dermatitis vs drug reaction -Careful with Benadryl due to anticholinergic effects, but may use PRN -Monitor for improvement or change -Follow-up infectious disease recommendations Impression: Rash extending from patient's back, moderately in left axilla, mildly on left chest. Noted on 10/18. Suspect petechiae (6) AAA (abdominal aortic aneurysm) ICD Codes: I71.4 - Abdominal aortic aneurysm, without rupture Plan: CT abd/pelvis w/o contrast done 09/30 5cm infrarenal abdominal aortic aneurysm Aorta CTA 7.3 cm infrarenal AAA with laminated wall, contained rupture which may be chronic and possible associated aortic wall inflammation indicating aortitis Vascular surgery consulted, appreciate recs [facility] confirms that no intervention at this time No intervention for AAA until infection cleared -Continue to follow at this time -Add metoprolol tartrate 12.5mg BID for tachycardia (7) GI bleed ICD Codes: K92.2 - Gastrointestinal hemorrhage, unspecified Status: Resolved Plan: GI consulted for mesenteric stranding and ascites, appreciate recommendations -Protonix 40mg IV BID -Supportive care -Sign off; consult as needed Avoid NSAIDs and anticoagulation EGD in 2 months Colonoscopy in 2 years History: Hb of 6.1 upon admission,1 month hx of black tarry stools, chronic aspirin use Hemoccult performed by RN in ED on 09/28- positive EGD/colonoscopy demonstrated hiatal hernia, gastric ulcer, erosive gastritis and colon polyp Duo/stomach biopsy- Stomach, reactive/chemical gastropathy with intestinal metaplasia. Colon, sigmoid, adenomatous polyp HCV quant, less than 15 IUs/ ml, less than 1.18 log IUs/mlAlpha-feto protein wnl Elevated ferritin levels due to underlying cirrhosis most likely AMSA, AMA negative A1AT 148 Hemochromatosis workup negative Transfusion history: 8 total U pRBC (most recently 2 U pRBC given 10/17), 1 U FFP, 1 U platelets transfused (8) Hematuria ICD Codes: R31.9 - Hematuria, unspecified Status: Resolved Plan: -UA 09/30 moderate occult blood, unlikely traumatic, patient has condom catheter -PSA wnl 0.15 -Renal US 10/04 demonstrated small nonobstructing 3mm calyceal calculus in the mid left kidney. 1.4 cm cyst in the inferior pole of the right kidney. -Urology consulted, recs appreciated Urologic impression: gross hematuria (now resolved) of indeterminate etiology; abnormal coagulation profile and thrombocytopenia likely contributing to the hematuria * manage conservatively for now * office follow up after hospital discharge when overall medical condition improved for cystoscopic evaluation [phone] * will be available as needed during present hospitalization (9) Hepatitis C ICD Codes: B19.20 - Unspecified viral hepatitis C without hepatic coma Status: Acute Plan: -To have paracentesis 10/21/17 -Continue to monitor LFT's Impression: Patient reports history of Hep C. Patient reports being treated in the 's. LFTs wnl. alpha fetoprotein wnl HCV quant, less than 15 IUs/ml, less than 1.18 log IUs/ml A/P CT with moderate pelvic ascites, calcified gallstones. Abdominal US- cirrhotic appearing liver; ascites in upper abdomen. Gallstones and thickened gallbladder wall. Splenomegaly; assumed secondary to portal hypertension/cirrhosis (10) Abnormal chest x-ray ICD Codes: R93.8 - Abnormal findings on diagnostic imaging of other specified body structures Plan: Impression: Heavy smoker. Mass 2.51 x 3.86 found on CXR. Small free- flowing right pleural effusion at the base. CT revealed dominant opacity seen on recent CXR represents loculated pleural effusion in the superior major fissure. Small b/l pleural effusions, mild consolidative infiltrates in the right lower lung, and right upper abdominal ascites. Calcified gallstones. S/p thoracentesis 10/01/2017- pleural fluid negative for malignancy (11) Decreased appetite ICD Codes: R63.0 - Anorexia Status: Acute Plan: -Will attempt to initiate tube feedings if continued failure to eat -Continue to monitor intake -Psychiatry consulted -Hold Remeron while delirious -Marinol restarted -Will start Prozac 20mg daily Impression: Lack of oral intake during hospitalization in association with flat affect. Suspect possible depression as etiology. Patient agreeable to tube feedings (12) RALF (acute kidney injury) ICD Codes: N17.9 - Acute kidney failure, unspecified Status: Resolved Plan: -Resolved -Continue to monitor Impression: RALF secondary to dehydration BUN 28 and Cr 0.53 upon admission (13) Sacral wound ICD Codes: S31.000A - Unspecified open wound of lower back and pelvis without penetration into retroperitoneum, initial encounter Plan: Unstageable sacral wound, 3cm x 6cm Wound care consulted, recommendations appreciated 1) Cleanse sacral wound with normal saline,pat dry. 2) Apply skin prep to gibran wound 3) Santyl josé thick to wound bed 4) Cover with Maxorb 2 cut to fit. 5) Cover with dry dressing (boarder gauze) 6) Change dressing Daily (14) Nutrition, metabolism, and development symptoms ICD Codes: R63.8 - Other symptoms and signs concerning food and fluid intake Plan: Fluids: PO due to fluid overload Diet: Lack of PO intake; Regular Basic diet Electrolytes: monitor and replace as needed Other: Case management consulted GI ppx: Protonix 40mg IV q12h DVT ppx: SCDs See the residents documentation for details. I saw and evaluated the patient regarding the roland portions of this evaluation and agree with the residents findings and plans as written. Parts of this note were created using [employer] voice recognition software program. While efforts were made to correct any mistakes made by this software, some mistakes, errors, and omissions may remain in the final note that were not caught when the note was originally created. (Akshat Chen MD) Problem Qualifiers (1) GI bleed: Qualified Codes: K92.2 - Gastrointestinal hemorrhage, unspecified (2) Sacral wound: Qualified Codes: S31.000D - Unspecified open wound of lower back and pelvis without penetration into retroperitoneum, subsequent encounter Edilson Shoemaker MD R1 Oct 21, 2017 11:30 Akshat Chen MD Oct 21, 2017 13:15
[2017-10-21] MEDS: DRONABINOL 2.5 MG CAP PO SCH ×2 (11:52→16:31)
--- NOTE | 2017-10-21 13:15 | HHI.IDPN ---
Subjective Subjective Remarks ID COVERAGE 66 yo male with Hep C presented with melena, Hb of 5. 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 Has been on INvanz and follow-up BC have been negative Transferred to ICU several days ago for SOB. Refused BIPAP, on high flow O2 mask. Had tap effusion L Going for abdominal paracentesis Temps ok BP ok On NRB mask No pain Notes to have skin rash 10/17(?) Not bothering him, not pruritic Denies abdominal pain Not coughing Breathing is not bad Antibiotics Ertapenem Lines PIV Past Medical History Hep C Allergies: Coded Allergies: No Known Allergies (Unverified , 09/28/17) Objective . Vital Signs Date Time Temp Pulse Resp B/P (MAP) Pulse Ox O2 Delivery O2 Flow Rate FiO2 10/21/17 10:00 100 10/21/17 08:00 98.1 96 18 101/70 (80) 92 10/21/17 08:00 96 10/21/17 08:00 92 45 10/21/17 07:55 95 high flow 35.00 40 10/21/17 06:00 96 10/21/17 04:00 97.9 91 17 98/60 (73) 96 10/21/17 04:00 91 10/21/17 04:00 96 35.00 45 10/21/17 02:00 86 10/21/17 00:00 98 35.00 50 10/21/17 00:00 84 10/21/17 00:00 97.9 84 17 93/57 (69) 98 10/20/17 23:00 101 18 109/63 (78) 94 10/20/17 23:00 101 10/20/17 22:00 101 22 108/59 (75) 94 10/20/17 22:00 101 10/20/17 21:00 102 18 98/70 (79) 95 10/20/17 21:00 96 High Flow Nasal Cannula 35.00 50 10/20/17 21:00 102 10/20/17 20:00 96 35.00 50 10/20/17 20:00 98.0 96 19 108/59 (75) 96 10/20/17 20:00 96 10/20/17 18:00 101 10/20/17 16:00 105 10/20/17 16:00 97.5 105 22 109/62 (78) 96 10/20/17 16:00 96 50 10/20/17 14:00 97 . Laboratory Tests Test 10/20/17 07:25 10/21/17 03:49 White Blood Count 1.6 TH/MM3 5.0 TH/MM3 Red Blood Count 3.42 MIL/MM3 3.32 MIL/MM3 Hemoglobin 10.5 GM/DL 10.2 GM/DL Hematocrit 31.5 % 30.7 % Mean Corpuscular Volume 92.1 FL 92.4 FL Mean Corpuscular Hemoglobin 30.8 PG 30.7 PG Mean Corpuscular Hemoglobin Concent 33.4 % 33.3 % Red Cell Distribution Width 17.8 % 17.5 % Platelet Count 32 TH/MM3 31 TH/MM3 Mean Platelet Volume 8.2 FL 8.3 FL Neutrophils (%) (Auto) 54.7 % Lymphocytes (%) (Auto) 36.1 % Monocytes (%) (Auto) 6.4 % Eosinophils (%) (Auto) 2.4 % Basophils (%) (Auto) 0.4 % Neutrophils # (Auto) 0.9 TH/MM3 Lymphocytes # (Auto) 0.6 TH/MM3 Monocytes # (Auto) 0.1 TH/MM3 Eosinophils # (Auto) 0.0 TH/MM3 Basophils # (Auto) 0.0 TH/MM3 CBC Comment AUTO DIFF AUTO DIFF Differential Total Cells Counted 100 100 Neutrophils % (Manual) 62 % 62 % Lymphocytes % 22 % 1 % Monocytes % 13 % 3 % Eosinophils % 3 % Neutrophils # (Manual) 1.0 TH/MM3 4.8 TH/MM3 Nucleated Red Blood Cells 1 /100 WBC 1 /100 WBC Differential Comment FINAL DIFF MANUAL FINAL DIFF MANUAL Toxic Vacuolation PRESENT PRESENT Platelet Estimate LOW LOW Platelet Morphology Comment NORMAL NORMAL Band Neutrophils % 33 % Metamyelocytes 1 % Toxic Granulation 1+ Laboratory Tests Test 10/19/17 16:38 10/20/17 07:25 10/21/17 03:48 Lactate Dehydrogenase 163 U/L Blood Urea Nitrogen 15 MG/DL 15 MG/DL Creatinine 0.30 MG/DL 0.38 MG/DL Random Glucose 89 MG/DL 61 MG/DL Total Protein 6.1 GM/DL 6.0 GM/DL Albumin 2.0 GM/DL 1.8 GM/DL Calcium Level 8.2 MG/DL 8.0 MG/DL Alkaline Phosphatase 83 U/L 86 U/L Aspartate Amino Transf (AST/SGOT) 18 U/L 21 U/L Alanine Aminotransferase (ALT/SGPT) 9 U/L 10 U/L Total Bilirubin 1.6 MG/DL 1.6 MG/DL Sodium Level 144 MEQ/L 144 MEQ/L Potassium Level 3.1 MEQ/L 3.4 MEQ/L Chloride Level 103 MEQ/L 103 MEQ/L Carbon Dioxide Level 36.5 MEQ/L 35.0 MEQ/L Anion Gap 5 MEQ/L 6 MEQ/L Estimat Glomerular Filtration Rate 300 ML/MIN 228 ML/MIN Phosphorus Level 2.7 MG/DL Magnesium Level 1.4 MG/DL Microbiology Date/Time Source Procedure Growth Status 10/18/17 15:30 Fluid Pleural Fluid Fungal Smear - Final NO FUNGAL ELEMENTS SEEN. Resulted 10/18/17 15:30 Fluid Pleural Fluid Fungal Culture Pending Resulted 10/18/17 15:30 Fluid Pleural Fluid Acid Fast Stain - Final NO ACID FAST BACILLI SEEN Resulted 10/18/17 15:30 Fluid Pleural Fluid Mycobacterial Culture Pending Resulted 10/18/17 15:30 Fluid Pleural Fluid Gram Stain - Final Complete 10/18/17 15:30 Fluid Pleural Fluid Body Fluid Culture - Final NO GROWTH IN 72 HRS.--AEROBICALLY OR ... Complete Imaging Chest X-Ray 10/19/17 0000 Signed Impressions: Service Date/Time: Thursday, October 19, 2017 16:12 - CONCLUSION: Slight worsening pulmonary edema, otherwise not significantly changed. Brian Flower MD Abdomen Ultrasound 10/19/17 0000 Signed Impressions: Service Date/Time: Thursday, October 19, 2017 08:28 - CONCLUSION: 1. Cirrhotic appearing liver. There is ascites seen in the upper abdomen. 2. Gallstones and a thickened gallbladder wall. This can be correlated with any signs of cholecystitis. Gallbladder wall thickening can be seen with hepatic disease. 3. 5.4 cm abdominal aortic aneurysm. 4. Mild to moderate dilatation of the left collecting system. 5. Splenomegaly. This may be secondary to portal hypertension and the patient's cirrhosis. Nicko Camacho MD Chest Ultrasound 10/17/17 0000 Signed Impressions: Service Date/Time: Tuesday, October 17, 2017 22:23 - CONCLUSION: Moderate to large pleural effusion. Patient was marked for thoracentesis. Edilson Abreu MD CT Angiography 10/16/17 0000 Signed Impressions: Service Date/Time: September 14:10 - CONCLUSION: 1. No evidence of pulmonary embolism 2. Moderate to large left-sided pleural effusion with compressive atelectasis of the left lower lung 3. Small right-sided pleural effusion with atelectasis in the right lung base. 4. Ascites in the upper abdomen. Justo Florian MD Renal Ultrasound 10/04/17 0000 Signed Impressions: Service Date/Time: Wednesday, October 04, 2017 10:29 - CONCLUSION: 1. Small nonobstructing 3 mm calyceal calculus in the mid left kidney. 2. 1.4 cm cyst in the inferior pole of the right kidney. 3. Small amount of ascites. Rohan Leigh MD Aorta CTA 10/01/17 1556 Signed Impressions: Service Date/Time: Sunday, October 01, 2017 17:11 - CONCLUSION: 1. 7.3 cm infrarenal abdominal aortic aneurysm with laminated wall as described above. Findings suggest a contained rupture which may be chronic and possible associated aortic wall inflammation indicating aortitis. 2. Chronic liver disease characteristic of cirrhosis. 3. Splenomegaly 4. Cholelithiasis 5. Moderate ascites 6. No evidence of portal vein thrombosis or Budd-Chiari syndrome. 7. COPD with bibasilar airspace disease and parapneumonic effusions. 1. Herve Berumen MD Thoracentesis Ultrasound 10/01/17 0000 Signed Impressions: Service Date/Time: Sunday, October 01, 2017 11:27 - CONCLUSION: Uncomplicated ultrasound guided thoracentesis. Marc Alfredo MD Cyst Biopsy Asp-Paracentesis US 10/01/17 0000 Signed Impressions: Service Date/Time: Sunday, October 01, 2017 09:53 - CONCLUSION: Uncomplicated ultrasound guided paracentesis. Marc Alfredo MD Abdomen/Pelvis CT 09/30/17 0000 Signed Impressions: Service Date/Time: Sunday, October 01, 2017 02:21 - CONCLUSION: 1. 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 2. Moderate pleural effusions and moderate amount of abdominal pelvic ascites. 3. 2 calcified gallstones. David Blunt MD Chest CT 09/28/17 0000 Signed Impressions: Service Date/Time: Friday, September 29, 2017 01:23 - CONCLUSION: 1. The dominant opacity seen on recent chest x-ray represents loculated pleural effusion in the superior major fissure. 2. Small bilateral pleural effusions, mild consolidative infiltrates in the right lower lung, and right upper abdominal ascites. 3. Calcified gallstones. David Blunt MD Last Impressions Renal Ultrasound 10/04/17 0000 Signed Impressions: Service Date/Time: Wednesday, October 04, 2017 10:29 - CONCLUSION: 1. Small nonobstructing 3 mm calyceal calculus in the mid left kidney. 2. 1.4 cm cyst in the inferior pole of the right kidney. 3. Small amount of ascites. Rohan Leigh MD Aorta CTA 10/01/17 1556 Signed Impressions: Service Date/Time: Sunday, October 01, 2017 17:11 - CONCLUSION: 1. 7.3 cm infrarenal abdominal aortic aneurysm with laminated wall as described above. Findings suggest a contained rupture which may be chronic and possible associated aortic wall inflammation indicating aortitis. 2. Chronic liver disease characteristic of cirrhosis. 3. Splenomegaly 4. Cholelithiasis 5. Moderate ascites 6. No evidence of portal vein thrombosis or Budd-Chiari syndrome. 7. COPD with bibasilar airspace disease and parapneumonic effusions. 1. Herve Berumen MD Thoracentesis Ultrasound 10/01/17 0000 Signed Impressions: Service Date/Time: Sunday, October 01, 2017 11:27 - CONCLUSION: Uncomplicated ultrasound guided thoracentesis. Marc Alfredo MD Cyst Biopsy Asp-Paracentesis US 10/01/17 0000 Signed Impressions: Service Date/Time: Sunday, October 01, 2017 09:53 - CONCLUSION: Uncomplicated ultrasound guided paracentesis. Marc Alfredo MD Chest X-Ray 10/01/17 0000 Signed Impressions: Service Date/Time: Sunday, October 01, 2017 13:22 - CONCLUSION: 1. No significant pneumothorax with near resolution of left-sided pleural effusion following thoracentesis. Rohan Leigh MD Abdomen/Pelvis CT 09/30/17 0000 Signed Impressions: Service Date/Time: Sunday, October 01, 2017 02:21 - CONCLUSION: 1. 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 2. Moderate pleural effusions and moderate amount of abdominal pelvic ascites. 3. 2 calcified gallstones. David Blunt MD Chest CT 09/28/17 0000 Signed Impressions: Service Date/Time: Friday, September 29, 2017 01:23 - CONCLUSION: 1. The dominant opacity seen on recent chest x-ray represents loculated pleural effusion in the superior major fissure. 2. Small bilateral pleural effusions, mild consolidative infiltrates in the right lower lung, and right upper abdominal ascites. 3. Calcified gallstones. David Blunt MD Physical Exam GENERAL: Thin male, awake and alert, NAD SKIN: Warm and moist. Has blanching erythematous maculopapular rash, most prominent in his trunk and some in UE and LE, none in palms or soles, none in face EYES: Pupils equal and round and reactive. Extraocular motions intact. No scleral icterus. No injection or drainage. ENT: Nose without bleeding or purulent drainage. Moist mucosa, no oral lesions NECK: Supple and not tender CARDIOVASCULAR: Regular rate and rhythm without murmurs RESPIRATORY/CHEST: Decreased breath sounds bilaterally at bases. GASTROINTESTINAL: Abdomen soft, non-tender, mildly distended. No guarding. Bowel sounds present. MUSCULOSKELETAL: Extremities without clubbing, cyanosis. Mild pedal edema. No calf tenderness. NEUROLOGICAL: Awake and alert. Motor and sensory grossly within normal limits. Follows commands. clear speech. Moves all extremities. 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
[2017-10-21] MEDS: predniSONE 20 MG TAB PO SCH (15:09)
[2017-10-21 15:23] LABS: TOTAL PROTEIN,PERITONEAL FLUID 1.1 GM/DL
--- NOTE | 2017-10-21 15:54 | HHI.GIFU ---
Subjective Remarks contact isolation. , Reconsult Weak, but answers simple question. Frail Diarrhea several months per patient. Objective Vitals I&O Vital Signs Date Time Temp Pulse Resp B/P (MAP) Pulse Ox O2 Delivery O2 Flow Rate FiO2 10/21/17 13:26 98.2 110 22 102/73 (83) 100 10/21/17 12:00 102 10/21/17 12:00 97.9 102 20 87/56 (66) 94 10/21/17 12:00 94 45 10/21/17 10:00 100 10/21/17 08:00 98.1 96 18 101/70 (80) 92 10/21/17 08:00 96 10/21/17 08:00 92 45 10/21/17 07:55 95 high flow 35.00 40 10/21/17 06:00 96 10/21/17 04:00 97.9 91 17 98/60 (73) 96 10/21/17 04:00 91 10/21/17 04:00 96 35.00 45 10/21/17 02:00 86 10/21/17 00:00 98 35.00 50 10/21/17 00:00 84 10/21/17 00:00 97.9 84 17 93/57 (69) 98 10/20/17 23:00 101 18 109/63 (78) 94 10/20/17 23:00 101 10/20/17 22:00 101 22 108/59 (75) 94 10/20/17 22:00 101 10/20/17 21:00 102 18 98/70 (79) 95 10/20/17 21:00 96 High Flow Nasal Cannula 35.00 50 10/20/17 21:00 102 10/20/17 20:00 96 35.00 50 10/20/17 20:00 98.0 96 19 108/59 (75) 96 10/20/17 20:00 96 10/20/17 18:00 101 10/20/17 16:00 105 10/20/17 16:00 97.5 105 22 109/62 (78) 96 10/20/17 16:00 96 50 I/O 10/20/17 10/20/17 10/20/17 10/21/17 10/21/17 10/21/17 07:00 15:00 23:00 07:00 15:00 23:00 Intake Total 240 ml 605 ml 300 ml 516 ml Output Total 250 ml 500 ml 350 ml Balance -10 ml 105 ml -50 ml 516 ml Intake Oral 240 ml 480 ml 300 ml IV Total 125 ml 516 ml Output Urine Total 250 ml 500 ml 250 ml Stool Total 100 ml # Voids 2 # Bowel Movements 0 1 Laboratory Laboratory Tests Test 10/20/17 20:00 10/21/17 03:48 10/21/17 03:49 10/21/17 10:45 Nasal Screen MRSA (PCR) MRSA NOT DETECTED Blood Urea Nitrogen 15 Creatinine 0.38 Random Glucose 61 Total Protein 6.0 Albumin 1.8 Calcium Level 8.0 Phosphorus Level 2.7 Magnesium Level 1.4 Alkaline Phosphatase 86 Aspartate Amino Transf (AST/SGOT) 21 Alanine Aminotransferase (ALT/SGPT) 10 Total Bilirubin 1.6 Sodium Level 144 Potassium Level 3.4 Chloride Level 103 Carbon Dioxide Level 35.0 Anion Gap 6 Estimat Glomerular Filtration Rate 228 White Blood Count 5.0 Red Blood Count 3.32 Hemoglobin 10.2 Hematocrit 30.7 Mean Corpuscular Volume 92.4 Mean Corpuscular Hemoglobin 30.7 Mean Corpuscular Hemoglobin Concent 33.3 Red Cell Distribution Width 17.5 Platelet Count 31 Mean Platelet Volume 8.3 CBC Comment AUTO DIFF Differential Total Cells Counted 100 Neutrophils % (Manual) 62 Band Neutrophils % 33 Lymphocytes % 1 Monocytes % 3 Neutrophils # (Manual) 4.8 Metamyelocytes 1 Nucleated Red Blood Cells 1 Differential Comment FINAL DIFF MANUAL Toxic Granulation 1+ Toxic Vacuolation PRESENT Platelet Estimate LOW Platelet Morphology Comment NORMAL Prothrombin Time 16.1 Prothromb Time International Ratio 1.6 Activated Partial Thromboplast Time 37.6 Fibrinogen 148 Test 10/21/17 14:00 Peritoneal Fluid Total Protein 1.1 Peritoneal Fluid Albumin 0.4 Peritoneal Fluid LDH 41 Peritoneal Fluid Glucose 90 Date/Time Source Procedure Growth Status 10/10/17 12:55 Blood Peripheral Aerobic Blood Culture - Final NO GROWTH IN 5 DAYS Complete 10/10/17 12:55 Blood Peripheral Anaerobic Blood Culture - Final NO GROWTH IN 5 DAYS Complete 10/21/17 14:00 Fluid Peritoneal Fluid Gram Stain Pending Received 10/21/17 14:00 Fluid Peritoneal Fluid Body Fluid Culture Pending Received 10/09/17 14:00 Stool Stool Stool Occult Blood (CALE) - Final HEMOCCULT NEGATIVE Complete Imaging Last Impressions Chest X-Ray 10/19/17 0000 Signed Impressions: Service Date/Time: Thursday, October 19, 2017 16:12 - CONCLUSION: Slight worsening pulmonary edema, otherwise not significantly changed. Brian Flower MD Abdomen Ultrasound 10/19/17 0000 Signed Impressions: Service Date/Time: Thursday, October 19, 2017 08:28 - CONCLUSION: 1. Cirrhotic appearing liver. There is ascites seen in the upper abdomen. 2. Gallstones and a thickened gallbladder wall. This can be correlated with any signs of cholecystitis. Gallbladder wall thickening can be seen with hepatic disease. 3. 5.4 cm abdominal aortic aneurysm. 4. Mild to moderate dilatation of the left collecting system. 5. Splenomegaly. This may be secondary to portal hypertension and the patient's cirrhosis. Nicko Camacho MD Chest Ultrasound 10/17/17 0000 Signed Impressions: Service Date/Time: Tuesday, October 17, 2017 22:23 - CONCLUSION: Moderate to large pleural effusion. Patient was marked for thoracentesis. Edilson Abreu MD CT Angiography 10/16/17 0000 Signed Impressions: Service Date/Time: September 14:10 - CONCLUSION: 1. No evidence of pulmonary embolism 2. Moderate to large left-sided pleural effusion with compressive atelectasis of the left lower lung 3. Small right-sided pleural effusion with atelectasis in the right lung base. 4. Ascites in the upper abdomen. Justo Florian MD Renal Ultrasound 10/04/17 0000 Signed Impressions: Service Date/Time: Wednesday, October 04, 2017 10:29 - CONCLUSION: 1. Small nonobstructing 3 mm calyceal calculus in the mid left kidney. 2. 1.4 cm cyst in the inferior pole of the right kidney. 3. Small amount of ascites. Rohan Leigh MD Aorta CTA 10/01/17 1556 Signed Impressions: Service Date/Time: Sunday, October 01, 2017 17:11 - CONCLUSION: 1. 7.3 cm infrarenal abdominal aortic aneurysm with laminated wall as described above. Findings suggest a contained rupture which may be chronic and possible associated aortic wall inflammation indicating aortitis. 2. Chronic liver disease characteristic of cirrhosis. 3. Splenomegaly 4. Cholelithiasis 5. Moderate ascites 6. No evidence of portal vein thrombosis or Budd-Chiari syndrome. 7. COPD with bibasilar airspace disease and parapneumonic effusions. 1. Herve Berumen MD Thoracentesis Ultrasound 10/01/17 0000 Signed Impressions: Service Date/Time: Sunday, October 01, 2017 11:27 - CONCLUSION: Uncomplicated ultrasound guided thoracentesis. Marc Alfredo MD Cyst Biopsy Asp-Paracentesis US 10/01/17 0000 Signed Impressions: Service Date/Time: Sunday, October 01, 2017 09:53 - CONCLUSION: Uncomplicated ultrasound guided paracentesis. Marc Alfredo MD Abdomen/Pelvis CT 09/30/17 0000 Signed Impressions: Service Date/Time: Sunday, October 01, 2017 02:21 - CONCLUSION: 1. 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 2. Moderate pleural effusions and moderate amount of abdominal pelvic ascites. 3. 2 calcified gallstones. David Blunt MD Chest CT 09/28/17 0000 Signed Impressions: Service Date/Time: Friday, September 29, 2017 01:23 - CONCLUSION: 1. The dominant opacity seen on recent chest x-ray represents loculated pleural effusion in the superior major fissure. 2. Small bilateral pleural effusions, mild consolidative infiltrates in the right lower lung, and right upper abdominal ascites. 3. Calcified gallstones. David Blunt MD Physical Exam HEENT: Normocephalic; atraumatic, frail CHEST: wheezes, rhonchi CARDIAC: RRR. ABDOMEN: Soft, mild distended, nontender; bowel sounds active x 4. EXTREMITIES: BLE edema, 1+ SKIN: rough, poor hygiene feet, LE; no jaundice. 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 Assessment and Plan Plan ASSESSMENT: - Uncontrolled Diarrhea, patient states several months. Uncontrolled Possible due to C-Diff, infection, meds, antibiotics, GIB, Hx of Hepatitis C, polyps, poor schincter control. - Already has had EGD and Colonoscopy this admission. History of this hospital admission. - Ascites - per CTA, moderate effusions and pelvic ascites, 5cm AAA with soft tissue thickening, mesenteric induration, cirrhosis. S/p paracentesis 1L fluid removed. - Anemia, melena, heme positive stools initially , was Hemoccult negative on . S/P EGD and colonoscopy found hiatal hernia, gastric ulcer, erosive gastritis, colon polyp - adenomatous polyp. 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 LFT WNL. HCV negative. - Pancytopenia - on Neupogen per hem/onc - E coli bacteremia - ID following, aortitis & GPC bcx PLAN: - Labs Check for C-Diff - Stool studies for enteric pathogens, H-Pylori, Rotavirus] - Add Flagyl IV - Monitor HH, transfuse as needed - Notify GI of active bleeding - PPI - continue Supportive care - Short term rectal schaefer for skin protection, according to staff ,patient has limited/ sphincter control. Patient seen and examined by Dr. Altman and myself and this note is written on his behalf. Iwona Vargas Oct 21, 2017 15:54
--- NOTE | 2017-10-21 16:19 | RADRPT ---
EXAM DATE/TIME: 10/21/2017 10:26 [facility] COMPARISON: US GUIDED ABD PARACENTESIS, October 01, 2017, 9:53. INDICATIONS : Ascites. MEDICAL HISTORY : Dyspnea. Liver disease. Hepatitis. MRSA. SURGICAL HISTORY : None. ENCOUNTER: Subsequent ACUITY: 3 weeks PAIN SCORE: 0/10 LOCATION: Right lower quadrant FLUID: Total volume of 4,400 cc of clear, yellow fluid was removed. Fluid was sent to lab for ordered studies. Post procedure scanning reveals no hematoma or other complication. TECHNIQUE: 1. Ultrasound guidance for abdominal paracentesis. 2. Paracentesis. The risks, benefits, and alternatives to ultrasound guided paracentesis were explained to the patient in detail including the risk of bleeding and infection. Written and verbal informed consent was obt ained. With the patient on the ultrasound table, ultrasound imaging was used to select the most appropriate approach for paracentesis. Overlying skin was prepped and draped in the usual sterile fashion and wi th a local anesthetic, a dermatotomy was made with an 11 blade scalpel. A 6 [place] [id number] ca theter was introduced into the peritoneal cavity and fluid was collected. The patient tolerated the procedure well and left the ultrasound suite in stable condition. CONCLUSION: Uncomplicated ultrasound guided paracentesis. Enrrique Mcclellan MD on October 21, 2017 at 16:17 Board Certified Radiologist. This report was verified electronically.
[2017-10-21] MEDS: FILGRASTIM INJ 300 MCG in DEXTROSE 5% IN WATER INJ 24 ML IV SCH ×2 (16:31)
[2017-10-21] MEDS: ERTAPENEM INJ 1,000 MG in SODIUM CHLORIDE 0.9% INJ 100 ML IV SCH (16:32)
[2017-10-21 16:40] LABS: PERITONEAL LYMPHS 25 %; PERITONEAL MONOS 4 %; PERITONEAL POLYS(SEGS) 71 %
[2017-10-21 16:50] LABS: PERITONEAL RBC 170 /MM3 (0-0)
[2017-10-21] MEDS: metroNIDAZOLE 500 MG INJ 100 ML IV SCH (18:04)
--- NOTE | 2017-10-21 18:54 | HHI.PR ---
Subjective Remarks Remains on a high Flow O2 cannula. and Fio2 at 50 % Has fluid overload. Will go for Paracentesis. Stable overall. Objective Vital Signs Date Time Temp Pulse Resp B/P (MAP) Pulse Ox O2 Delivery O2 Flow Rate FiO2 10/21/17 18:00 99 10/21/17 16:00 97 10/21/17 16:00 94 45 10/21/17 16:00 98.0 97 21 94/65 (75) 94 10/21/17 13:26 98.2 110 22 102/73 (83) 100 10/21/17 12:00 102 10/21/17 12:00 97.9 102 20 87/56 (66) 94 10/21/17 12:00 94 45 10/21/17 10:00 100 10/21/17 08:00 98.1 96 18 101/70 (80) 92 10/21/17 08:00 96 10/21/17 08:00 92 45 10/21/17 07:55 95 high flow 35.00 40 10/21/17 06:00 96 10/21/17 04:00 97.9 91 17 98/60 (73) 96 10/21/17 04:00 91 10/21/17 04:00 96 35.00 45 10/21/17 02:00 86 10/21/17 00:00 98 35.00 50 10/21/17 00:00 84 10/21/17 00:00 97.9 84 17 93/57 (69) 98 10/20/17 23:00 101 18 109/63 (78) 94 10/20/17 23:00 101 10/20/17 22:00 101 22 108/59 (75) 94 10/20/17 22:00 101 10/20/17 21:00 102 18 98/70 (79) 95 10/20/17 21:00 96 High Flow Nasal Cannula 35.00 50 10/20/17 21:00 102 10/20/17 20:00 96 35.00 50 10/20/17 20:00 98.0 96 19 108/59 (75) 96 10/20/17 20:00 96 I/O 10/20/17 10/20/17 10/20/17 10/21/17 10/21/17 10/21/17 07:00 15:00 23:00 07:00 15:00 23:00 Intake Total 240 ml 605 ml 300 ml 516 ml 565 ml Output Total 250 ml 500 ml 350 ml Balance -10 ml 105 ml -50 ml 516 ml 565 ml Intake Oral 240 ml 480 ml 300 ml 240 ml IV Total 125 ml 516 ml 325 ml Output Urine Total 250 ml 500 ml 250 ml Stool Total 100 ml # Voids 2 2 # Bowel Movements 0 1 2 Result Diagram: 10/21/17 0349 10/21/17 0348 Objective Remarks GENERAL: This is a moderately overweight elderly white male who is laying flat. HEENT: Head normocephalic. Pupils are reactive. Sclerae anicteric. Throat was dry. He has no inflammation. NECK: Supple. No bruits or thyroid enlargement. CHEST: Distant breath sounds over the left mid lower chest with occasional bibasilar crackles. No Murmur. No S3 gallop. ABDOMEN: Soft and protuberant. There is some tenderness in the upper abdomen The bowel sounds are active.No Mass. EXTREMITIES: 2 + Edema with decreased peripheral pulses. Reflexes are 1+ with no gross motor deficits. SKIN: No lesions observed. Assessment and Plan Assessment and Plan IMPRESSION 1. Loculated left pleural effusion. Etiology undetermined. 2. History of hepatitis C. Ascites 3. GI bleeding with anemia and gastric ulceration. 4. Atelectasis both bases with probable resolving pneumonia 5. COPD with emphysema and chronic bronchitis 6. Sepsis resolved 7. Pancytopenia. 8. Abdominal aortic aneurysm. PLan : 1. Cont Aldactone 25 mg bid 2. IS at bedside q3h 3. Cont Lasix 20 mg IV daily. 4. Wean O2 to Keep sat > 92.Switch to N/C 5. Paracentesis today. 6. Continue antibiotics per ID 7. PT evaluation Yasemin Redding MD Oct 21, 2017 18:54
[2017-10-22] VITALS (16 sets, daily range): BP systolic 84–104; BP diastolic 51–65; PULSE 86–115; RESP 16–28; TEMP 97.6–98.7; O2SAT 88–96
[2017-10-22] MEDS: metroNIDAZOLE 500 MG INJ 100 ML IV SCH ×3 (02:24→16:12)
[2017-10-22] MEDS: PANTOPRAZOLE SODIUM 40 MG VIAL IV PUSH SCH ×2 (02:24→14:13)
[2017-10-22] MEDS: CHLORHEXIDINE GLUCONATE 2 % 1 PACK (2 CLOTHS)(taper/protocol) TOPICAL SCH (04:00)
[2017-10-22 05:19] LABS: AUTOMATED NEUTROPHIL # 6.4 TH/MM3 (1.8-7.7); BASOPHIL % 0.6 % (0.0-2.0); EOSINOPHIL % 0.2 % (0.0-4.0); HEMATOCRIT 28.9 % (39.0-51.0); HEMOGLOBIN 9.8 GM/DL (13.0-17.0); LYMPH % 14.8 % (9.0-44.0); LYMPHOCYTE # 1.2 TH/MM3 (1.0-4.8); MEAN CELL VOLUME 93.1 FL (80.0-100.0); MEAN CORPUSCULAR HEMOGLOBIN 31.5 PG (27.0-34.0); MEAN CORPUSCULAR HGB CONC 33.9 % (32.0-36.0); MEAN PLATELET VOLUME 8.3 FL (7.0-11.0); MONO % 2.2 % (0.0-8.0); MONOCYTE # 0.2 TH/MM3 (0-0.9); NEUT % 82.2 % (16.0-70.0); PLATELET COUNT 34 TH/MM3 (150-450); RED CELL DISTRIBUTION WIDTH 17.7 % (11.6-17.2); WHITE BLOOD COUNT 7.8 TH/MM3 (4.0-11.0)
[2017-10-22 05:27] LABS: BICARBONATE 33.5 MEQ/L (21.0-32.0); CALCIUM 8.1 MG/DL (8.5-10.1); CREATININE 0.55 MG/DL (0.60-1.30)
[2017-10-22 08:12] LABS: BANDS 13 % (0-6); BASOPHILS 1 % (0-2); CORRECTED NUCLEATED RBC 1 /100 WBC (0-0); LYMPHOCYTES 6 % (9-44); MONOCYTES 4 % (0-8); NEUTROPHIL # MANUAL DIFF 6.9 TH/MM3 (1.8-7.7); NUCLEATED RED BLOOD CELL 1 (0-0); POLYS (SEG NEUTROPHILS) 76 % (16-70)
[2017-10-22 08:13] LABS: TOXIC VACUOLATION PRESENT (NONE SEEN)
[2017-10-22] MEDS: POTASSIUM CHLORIDE 20 MEQ CONTROLLED RELEASE TAB PO SCH ×3 (08:36→21:07)
[2017-10-22] MEDS: COLLAGENASE OINT 30 GM TUBE TOPICAL SCH ×2 (08:37→09:00)
[2017-10-22] MEDS: SODIUM CHLORIDE 0.9% FLUSH 10 ML FLUSH IV FLUSH SCH ×2 (08:37→21:00)
[2017-10-22] MEDS: predniSONE 20 MG TAB PO SCH (08:37)
[2017-10-22] MEDS: METOPROLOL TARTRATE 25 MG TAB PO SCH ×2 (08:37→21:00)
[2017-10-22] MEDS: FOLIC ACID 1 MG TAB PO SCH (08:37)
[2017-10-22] MEDS: FUROSEMIDE 20 MG TAB PO SCH (08:37)
[2017-10-22] MEDS: SPIRONOLACTONE 25 MG TAB PO SCH ×2 (08:37→16:12)
[2017-10-22] MEDS: NYSTATIN 100,000 U/GM PWD 15 GM BTL TOPICAL SCH ×2 (08:37→21:00)
[2017-10-22] MEDS: FLUoxetine HCL 20 MG CAP PO SCH (08:37)
[2017-10-22] MEDS: SODIUM CHLOR 0.9% 1000 ML INJ 1,000 ML IV SCH ×2 (08:38→16:12)
--- NOTE | 2017-10-22 11:02 | HHI.FPPN ---
Subjective Remarks Patient seen and examined today. States his appetite is improving. Reports he had a full plate of macaroni and cheese last night, had ice cream and some ensure today. States he finds the nasal cannula mildly irritating. No shortness of breath, cough, mucus production, difficulty breathing. Denies nausea, vomiting, fever, chills, abdominal pain, chest pain. No other complaints. Objective Vitals Vital Signs Date Time Temp Pulse Resp B/P (MAP) Pulse Ox O2 Delivery O2 Flow Rate FiO2 10/22/17 10:00 89 10/22/17 09:13 92 High Flow Nasal Cannula 30.00 45 10/22/17 08:00 92 45 10/22/17 08:00 97.6 94 23 104/63 (77) 92 10/22/17 08:00 94 10/22/17 06:00 86 10/22/17 04:00 98.4 96 17 84/53 (63) 92 10/22/17 04:00 92 30.00 45 10/22/17 04:00 96 10/22/17 03:11 92 High Flow Nasal Cannula 30.00 45 10/22/17 02:00 95 10/22/17 00:00 96 10/22/17 00:00 92 25.00 40 10/22/17 00:00 98.2 96 20 84/51 (62) 90 10/21/17 22:00 97 10/21/17 20:10 94 High Flow Nasal Cannula 25.00 40 10/21/17 20:00 94 25.00 40 10/21/17 20:00 98.6 106 18 93/58 (70) 94 10/21/17 20:00 106 10/21/17 18:00 99 10/21/17 16:00 97 10/21/17 16:00 94 45 10/21/17 16:00 98.0 97 21 94/65 (75) 94 10/21/17 13:26 98.2 110 22 102/73 (83) 100 10/21/17 12:00 102 10/21/17 12:00 97.9 102 20 87/56 (66) 94 10/21/17 12:00 94 45 I/O 10/21/17 10/21/17 10/21/17 10/22/17 10/22/17 10/22/17 07:00 15:00 23:00 07:00 15:00 23:00 Intake Total 300 ml 516 ml 565 ml 1824 ml Output Total 350 ml 300 ml Balance -50 ml 516 ml 565 ml 1524 ml Intake Oral 300 ml 240 ml 800 ml IV Total 516 ml 325 ml 1024 ml Output Urine Total 250 ml 300 ml Stool Total 100 ml # Voids 2 2 # Bowel Movements 2 1 Result Diagram: 10/22/1744510/22/17445 Objective Remarks CONSTITUTIONAL/GEN: Cachectic male, lying in bed PSYCH/NEURO: AOx3. Flat affect. No CN defects. No peripheral motor/sensory defects. SKIN: Maculopapular rash extending from mid back along the left axilla and torso , spread to legs, improved 10/22/17 LUNGS: Decreased breath sounds bilaterally; normal rate. Patient on high flow nasal cannula CARDIOVASCULAR: Regular rhythm; mild tachycardia. No LE edema GI/ABD: soft, normal BS; no pain to palpation : catheter in place; Dark urine in schaefer bag A/P Assessment and Plan 66 yr old M Hep C, hx of heavy smoking (2ppd for 61 yrs), and chronic aspirin use presented to the ED with anemia and black tarry stools secondary to suspected GI bleed. Patient transferred to ICU 09/30 for ESBL E.coli sepsis. Patient hemodynamically stable for transfer to med/surg 10/03. Patient confused/ delirious with hypercarbia 10/19; transferred to ICU for BIPAP. Discharge Planning Case Management to assist with SNF placement Pending workup and management of multiple chronic issues Problem List: (1) Hypoxia ICD Codes: R09.02 - Hypoxemia Status: Acute Plan: improved mental status. On high flow nasal cannula, currently at 30 L/m. Attempting to wean -Continue management in ICU Venous blood gas (10/09) -pH 7.4, pCO2 60, pO2 24, HCO3 37 -Pulmonology consulted, follow-up recommendations * s/p thoracentesis 10/18 * Incentive spirometry * DuoNeb 4 times a day, when necessary * Aldactone 25mg BID * Lasix 20mg IV daily * Wean O2 to keep sat<92 * Lasix 20 mg daily Impression: Patient has been on substantial O2 requirement via NC since admission; recently hypoxia 10/15 with O2 saturations in upper 70's. Associated with anemia. Decreased breath sounds on exam; no wheezing. No symptoms appreciated by patient, no tachypnea. History of tobacco abuse. CT revealed dominant opacity seen on recent CXR represents loculated pleural effusion in the superior major fissure. Small b/l pleural effusions, mild consolidative infiltrates in the right lower lung, and right upper abdominal ascites. Calcified gallstones. Echo on 10/01 shows EF of 60-65%, normal LV systolic function S/p thoracentesis 10/01/2017- pleural fluid negative for malignancy CXR (10/15): no change; small to moderate left effusion (no interval change from 10/12 (pulmonary vascular congestion, L sided effusion)) ABG (10/15): pH 7.42, pCO2 57, pO2 55, O2 sat 85% ABG (10/17): pH 7.44, PCO2 56, PO2 71 CTA (10/16/2017): without evidence of PE, left-sided pleural effusion, ascites noted s/p transfusion (8 total U pRBC; most recently 2 U 10/17/2017) s/p L thoracentesis 10/18- 1300ml serosanguineous fluid aspirated (2) Bacteremia ICD Codes: R78.81 - Bacteremia Status: Acute Plan: ID consulted, appreciate recommendations * E.coli ESBL sepsis, source is likely GI, questionable SBP * Continue Ertapenem 1000 mg IV q24h (10/02) x 6-8 weeks per ID History: Transferred to med/surg floor 10/03; previously transferred to ICU secondary to ESBL sepsis. Patient met sepsis criteria 09/29 due to tachycardic at 95-113 and hypotension 86/53 Lactic acid 1.4 09/29, Repeat lactic acid 1.5 s/p 500cc bolus of NS, MIVF 140mls/hr 09/29 * CT abd/pelvis w/o contrast done 09/30 revealed moderate size left pleural effusion, ascites, 5cm infrarenal abdominal aortic aneurysm and mesenteric stranding. * CTA 10/01 7.3 cm AAA, contained rupture, cirrhosis, splenomegaly, cholelithiasis, moderate ascites, no evident of protal vein thrombosis or Budd- Chiari syndrome, COPD with bibasilar airspace disease and parapneumonic effusions * 2-D echo - 60-65% EF * Left pleural effusion- thoracentesis with removal of 750 cc of dark yellow fluid. Fluid appeared transudative. * Ascites- paracentesis with removal of 1100 cc of yellow fluids. This appeared due to portal hypertension. * Possibility of aortoenteric fistula Cultures: Blood- Cultures 10/10 NGTD Staph hominis 10/06 (pansensitive) ESBL E Coli 09/29 (resistant, to Ampicillin, Unasyn, Cefazolin, Cefepime, Cefuroxime, Levofloxacin) Antibiotic history: Vancomycin (restarted 10/07-10/11) Vancomycin 1,250mg IV q12h (09/29-10/01) Zosyn 4.5 gm IV q6h (started 09/30-09/22) Azithromycin 250mg PO daily (10/01-10/04) (3) Pancytopenia ICD Codes: D61.818 - Other pancytopenia Plan: 10/22/17 hemoglobin 9.8. No reported bleeding Hem/Onc consulted, appreciate recs -Neupogen PRN per Hematology -Monitor CBC and transfuse as needed -Continue daily folate Impression: Pancytopenia; failure to thrive. Per Hem Onc, treated in / cleared but titers elevated during hospitalization. WBC down since admission, Hb stable, plts trending down since admission A/P CT and CTA - pelvic ascites, 7.3cm infrarenal AAA, calcified gallstones, moderate pleural effusions, cirrhosis, CTA S/P thoracentesis, paracentesis Transfusion history: 8 total U pRBC (most recently 2 U pRBC given 10/17), 1 U FFP, 1 U platelets transfused (4) Rash and nonspecific skin eruption ICD Codes: R21 - Rash and other nonspecific skin eruption Status: Acute Plan: petechiae vs contact dermatitis vs drug reaction -Careful with Benadryl due to anticholinergic effects, but may use PRN -Per ID prednisone 40 mg daily, short course -Monitor for improvement or change Impression: Rash extending from patient's back, moderately in left axilla, mildly on left chest. Noted on 10/18. Suspect petechiae versus dermatitis (5) Delirium ICD Codes: R41.0 - Disorientation, unspecified Status: Resolved Plan: Ammonia wnl. Possible CO2 narcosis, no delirium today. -Continue O2 supplementation -Restart Dronabinol 2.5mg BID -Psychiatry consulted -Suspect delirium secondary to general medical condition -Consider initiating Haldol BID with titration to TID if needed; additional PRN Haldol for acute agitation; EKG if needed to assess QTC -Frequent reorientation/mobilization -Aggressive management of retention or constipation -Sitter preferred over restraints Impression: Worsening mental status per nursing staff with increased confusion. Patient somewhat disoriented on exam; no focal neurologic deficits. PMH alcholism, liver disease, COPD (6) AAA (abdominal aortic aneurysm) ICD Codes: I71.4 - Abdominal aortic aneurysm, without rupture Plan: CT abd/pelvis w/o contrast done 09/30 5cm infrarenal abdominal aortic aneurysm Aorta CTA 7.3 cm infrarenal AAA with laminated wall, contained rupture which may be chronic and possible associated aortic wall inflammation indicating aortitis Vascular surgery consulted, appreciate recs [facility] confirms that no intervention at this time No intervention for AAA until infection cleared -Continue to follow at this time -Add metoprolol tartrate 12.5mg BID for tachycardia (7) GI bleed ICD Codes: K92.2 - Gastrointestinal hemorrhage, unspecified Status: Resolved Plan: GI consulted for mesenteric stranding and ascites, appreciate recommendations -Protonix 40mg IV BID -Supportive care -Sign off; consult as needed Avoid NSAIDs and anticoagulation EGD in 2 months Colonoscopy in 2 years History: Hb of 6.1 upon admission,1 month hx of black tarry stools, chronic aspirin use Hemoccult performed by RN in ED on 09/28- positive EGD/colonoscopy demonstrated hiatal hernia, gastric ulcer, erosive gastritis and colon polyp Duo/stomach biopsy- Stomach, reactive/chemical gastropathy with intestinal metaplasia. Colon, sigmoid, adenomatous polyp HCV quant, less than 15 IUs/ ml, less than 1.18 log IUs/mlAlpha-feto protein wnl Elevated ferritin levels due to underlying cirrhosis most likely AMSA, AMA negative A1AT 148 Hemochromatosis workup negative Transfusion history: 8 total U pRBC (most recently 2 U pRBC given 10/17), 1 U FFP, 1 U platelets transfused (8) Hematuria ICD Codes: R31.9 - Hematuria, unspecified Status: Resolved Plan: -UA 09/30 moderate occult blood, unlikely traumatic, patient has condom catheter -PSA wnl 0.15 -Renal US 10/04 demonstrated small nonobstructing 3mm calyceal calculus in the mid left kidney. 1.4 cm cyst in the inferior pole of the right kidney. -Urology consulted, recs appreciated Urologic impression: gross hematuria (now resolved) of indeterminate etiology; abnormal coagulation profile and thrombocytopenia likely contributing to the hematuria * manage conservatively for now * office follow up after hospital discharge when overall medical condition improved for cystoscopic evaluation [phone] * will be available as needed during present hospitalization (9) Hepatitis C ICD Codes: B19.20 - Unspecified viral hepatitis C without hepatic coma Status: Acute Plan: -paracentesis 10/21/17 -Continue to monitor LFT's Impression: Patient reports history of Hep C. Patient reports being treated in the s. LFTs wnl. alpha fetoprotein wnl HCV quant, less than 15 IUs/ml, less than 1.18 log IUs/ml A/P CT with moderate pelvic ascites, calcified gallstones. Abdominal US- cirrhotic appearing liver; ascites in upper abdomen. Gallstones and thickened gallbladder wall. Splenomegaly; assumed secondary to portal hypertension/cirrhosis (10) Abnormal chest x-ray ICD Codes: R93.8 - Abnormal findings on diagnostic imaging of other specified body structures Plan: Impression: Heavy smoker. Mass 2.51 x 3.86 found on CXR. Small free- flowing right pleural effusion at the base. CT revealed dominant opacity seen on recent CXR represents loculated pleural effusion in the superior major fissure. Small b/l pleural effusions, mild consolidative infiltrates in the right lower lung, and right upper abdominal ascites. Calcified gallstones. S/p thoracentesis 10/01/2017- pleural fluid negative for malignancy (11) Decreased appetite ICD Codes: R63.0 - Anorexia Status: Acute Plan: Eating better, ate dinner on 10/21/17 -Will attempt to initiate tube feedings if continued failure to eat -Continue to monitor intake -Psychiatry consulted -Hold Remeron -Marinol restarted -Prozac 20mg daily Impression: Lack of oral intake during hospitalization in association with flat affect. Suspect possible depression as etiology. Patient agreeable to tube feedings (12) RALF (acute kidney injury) ICD Codes: N17.9 - Acute kidney failure, unspecified Status: Resolved Plan: -Resolved -Continue to monitor Impression: RALF secondary to dehydration BUN 28 and Cr 0.53 upon admission (13) Sacral wound ICD Codes: S31.000A - Unspecified open wound of lower back and pelvis without penetration into retroperitoneum, initial encounter Plan: Unstageable sacral wound, 3cm x 6cm Wound care consulted, recommendations appreciated 1) Cleanse sacral wound with normal saline,pat dry. 2) Apply skin prep to gibran wound 3) Santyl josé thick to wound bed 4) Cover with Maxorb 2 cut to fit. 5) Cover with dry dressing (boarder gauze) 6) Change dressing Daily (14) Nutrition, metabolism, and development symptoms ICD Codes: R63.8 - Other symptoms and signs concerning food and fluid intake Plan: Fluids: PO due to fluid overload Diet: Lack of PO intake; Regular Basic diet Electrolytes: monitor and replace as needed Other: Case management consulted GI ppx: Protonix 40mg IV q12h DVT ppx: SCDs See the residents documentation for details. I saw and evaluated the patient regarding the roland portions of this evaluation and agree with the residents findings and plans as written. Parts of this note were created using [employer] voice recognition software program. While efforts were made to correct any mistakes made by this software, some mistakes, errors, and omissions may remain in the final note that were not caught when the note was originally created. Problem Qualifiers (1) GI bleed: Qualified Codes: K92.2 - Gastrointestinal hemorrhage, unspecified (2) Sacral wound: Qualified Codes: S31.000D - Unspecified open wound of lower back and pelvis without penetration into retroperitoneum, subsequent encounter Edilson Shoemaker MD R1 Oct 22, 2017 11:02
--- NOTE | 2017-10-22 11:08 | HHI.IDPN ---
Subjective Subjective Remarks ID COVERAGE 66 yo male with Hep C presented with melena, Hb of 5. 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 Has been on INvanz and follow-up BC have been negative Transferred to ICU several days ago for SOB. Refused BIPAP, on high flow O2 mask. Had tap effusion L several days ago Tap of abdomen yesterday - took out 4+ L fluid No abdominal pain Still of high flow O2 Temps ok BP ok Notes to have skin rash 10/17(?) Not bothering him, not pruritic Antibiotics Ertapenem Lines PIV Past Medical History Hep C Allergies: Coded Allergies: No Known Allergies (Unverified , 09/28/17) Objective . Vital Signs Date Time Temp Pulse Resp B/P (MAP) Pulse Ox O2 Delivery O2 Flow Rate FiO2 10/22/17 10:00 89 10/22/17 09:13 92 High Flow Nasal Cannula 30.00 45 10/22/17 08:00 92 45 10/22/17 08:00 97.6 94 23 104/63 (77) 92 10/22/17 08:00 94 10/22/17 06:00 86 10/22/17 04:00 98.4 96 17 84/53 (63) 92 10/22/17 04:00 92 30.00 45 10/22/17 04:00 96 10/22/17 03:11 92 High Flow Nasal Cannula 30.00 45 10/22/17 02:00 95 10/22/17 00:00 96 10/22/17 00:00 92 25.00 40 10/22/17 00:00 98.2 96 20 84/51 (62) 90 10/21/17 22:00 97 10/21/17 20:10 94 High Flow Nasal Cannula 25.00 40 10/21/17 20:00 94 25.00 40 10/21/17 20:00 98.6 106 18 93/58 (70) 94 10/21/17 20:00 106 10/21/17 18:00 99 10/21/17 16:00 97 10/21/17 16:00 94 45 10/21/17 16:00 98.0 97 21 94/65 (75) 94 10/21/17 13:26 98.2 110 22 102/73 (83) 100 10/21/17 12:00 102 10/21/17 12:00 97.9 102 20 87/56 (66) 94 10/21/17 12:00 94 45 . Laboratory Tests Test 10/21/17 03:49 10/22/17 04:46 White Blood Count 5.0 TH/MM3 7.8 TH/MM3 Red Blood Count 3.32 MIL/MM3 3.10 MIL/MM3 Hemoglobin 10.2 GM/DL 9.8 GM/DL Hematocrit 30.7 % 28.9 % Mean Corpuscular Volume 92.4 FL 93.1 FL Mean Corpuscular Hemoglobin 30.7 PG 31.5 PG Mean Corpuscular Hemoglobin Concent 33.3 % 33.9 % Red Cell Distribution Width 17.5 % 17.7 % Platelet Count 31 TH/MM3 34 TH/MM3 Mean Platelet Volume 8.3 FL 8.3 FL CBC Comment AUTO DIFF AUTO DIFF Differential Total Cells Counted 100 100 Neutrophils % (Manual) 62 % 76 % Band Neutrophils % 33 % 13 % Lymphocytes % 1 % 6 % Monocytes % 3 % 4 % Neutrophils # (Manual) 4.8 TH/MM3 6.9 TH/MM3 Metamyelocytes 1 % Nucleated Red Blood Cells 1 /100 WBC 1 /100 WBC Differential Comment FINAL DIFF MANUAL FINAL DIFF MANUAL Toxic Granulation 1+ Toxic Vacuolation PRESENT PRESENT Platelet Estimate LOW LOW Platelet Morphology Comment NORMAL NORMAL Neutrophils (%) (Auto) 82.2 % Lymphocytes (%) (Auto) 14.8 % Monocytes (%) (Auto) 2.2 % Eosinophils (%) (Auto) 0.2 % Basophils (%) (Auto) 0.6 % Neutrophils # (Auto) 6.4 TH/MM3 Lymphocytes # (Auto) 1.2 TH/MM3 Monocytes # (Auto) 0.2 TH/MM3 Eosinophils # (Auto) 0.0 TH/MM3 Basophils # (Auto) 0.0 TH/MM3 Basophils % 1 % Basophilic Stippling MOD Laboratory Tests Test 10/21/17 03:48 10/22/17 04:46 Blood Urea Nitrogen 15 MG/DL 20 MG/DL Creatinine 0.38 MG/DL 0.55 MG/DL Random Glucose 61 MG/DL 109 MG/DL Total Protein 6.0 GM/DL Albumin 1.8 GM/DL Calcium Level 8.0 MG/DL 8.1 MG/DL Phosphorus Level 2.7 MG/DL Magnesium Level 1.4 MG/DL Alkaline Phosphatase 86 U/L Aspartate Amino Transf (AST/SGOT) 21 U/L Alanine Aminotransferase (ALT/SGPT) 10 U/L Total Bilirubin 1.6 MG/DL Sodium Level 144 MEQ/L 143 MEQ/L Potassium Level 3.4 MEQ/L 3.7 MEQ/L Chloride Level 103 MEQ/L 102 MEQ/L Carbon Dioxide Level 35.0 MEQ/L 33.5 MEQ/L Anion Gap 6 MEQ/L 8 MEQ/L Estimat Glomerular Filtration Rate 228 ML/MIN 149 ML/MIN Microbiology Date/Time Source Procedure Growth Status 10/21/17 14:00 Fluid Peritoneal Fluid Gram Stain - Final Resulted 10/21/17 14:00 Fluid Peritoneal Fluid Body Fluid Culture Pending Resulted 10/22/17 05:26 Stool Stool Pending Received 10/22/17 05:26 Stool Stool Rotavirus Antigen - Final NEGATIVE - ROTAVIRUS ANTIGEN IS ABSEN... Complete Imaging Chest X-Ray 10/19/17 0000 Signed Impressions: Service Date/Time: Thursday, October 19, 2017 16:12 - CONCLUSION: Slight worsening pulmonary edema, otherwise not significantly changed. KSteve Flower MD Abdomen Ultrasound 10/19/17 0000 Signed Impressions: Service Date/Time: Thursday, October 19, 2017 08:28 - CONCLUSION: 1. Cirrhotic appearing liver. There is ascites seen in the upper abdomen. 2. Gallstones and a thickened gallbladder wall. This can be correlated with any signs of cholecystitis. Gallbladder wall thickening can be seen with hepatic disease. 3. 5.4 cm abdominal aortic aneurysm. 4. Mild to moderate dilatation of the left collecting system. 5. Splenomegaly. This may be secondary to portal hypertension and the patient's cirrhosis. Nicko Camacho MD Chest Ultrasound 10/17/17 0000 Signed Impressions: Service Date/Time: Tuesday, October 17, 2017 22:23 - CONCLUSION: Moderate to large pleural effusion. Patient was marked for thoracentesis. Edilson Abreu MD CT Angiography 10/16/17 0000 Signed Impressions: Service Date/Time: September 14:10 - CONCLUSION: 1. No evidence of pulmonary embolism 2. Moderate to large left-sided pleural effusion with compressive atelectasis of the left lower lung 3. Small right-sided pleural effusion with atelectasis in the right lung base. 4. Ascites in the upper abdomen. Justo Florian MD Renal Ultrasound 10/04/17 0000 Signed Impressions: Service Date/Time: Wednesday, October 04, 2017 10:29 - CONCLUSION: 1. Small nonobstructing 3 mm calyceal calculus in the mid left kidney. 2. 1.4 cm cyst in the inferior pole of the right kidney. 3. Small amount of ascites. Rohan Leigh MD Aorta CTA 10/01/17 [id number] Signed Impressions: Service Date/Time: Sunday, October 01, 2017 17:11 - CONCLUSION: 1. 7.3 cm infrarenal abdominal aortic aneurysm with laminated wall as described above. Findings suggest a contained rupture which may be chronic and possible associated aortic wall inflammation indicating aortitis. 2. Chronic liver disease characteristic of cirrhosis. 3. Splenomegaly 4. Cholelithiasis 5. Moderate ascites 6. No evidence of portal vein thrombosis or Budd-Chiari syndrome. 7. COPD with bibasilar airspace disease and parapneumonic effusions. 1. Herve Berumen MD Thoracentesis Ultrasound 10/01/17 0000 Signed Impressions: Service Date/Time: Sunday, October 01, 2017 11:27 - CONCLUSION: Uncomplicated ultrasound guided thoracentesis. Marc Alfredo MD Cyst Biopsy Asp-Paracentesis US 10/01/17 0000 Signed Impressions: Service Date/Time: Sunday, October 01, 2017 09:53 - CONCLUSION: Uncomplicated ultrasound guided paracentesis. Marc Alfredo MD Abdomen/Pelvis CT 09/30/17 0000 Signed Impressions: Service Date/Time: Sunday, October 01, 2017 02:21 - CONCLUSION: 1. 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 2. Moderate pleural effusions and moderate amount of abdominal pelvic ascites. 3. 2 calcified gallstones. David Blunt MD Chest CT 09/28/17 0000 Signed Impressions: Service Date/Time: Friday, September 29, 2017 01:23 - CONCLUSION: 1. The dominant opacity seen on recent chest x-ray represents loculated pleural effusion in the superior major fissure. 2. Small bilateral pleural effusions, mild consolidative infiltrates in the right lower lung, and right upper abdominal ascites. 3. Calcified gallstones. David Blunt MD Last Impressions Renal Ultrasound 10/04/17 0000 Signed Impressions: Service Date/Time: Wednesday, October 04, 2017 10:29 - CONCLUSION: 1. Small nonobstructing 3 mm calyceal calculus in the mid left kidney. 2. 1.4 cm cyst in the inferior pole of the right kidney. 3. Small amount of ascites. Rohan Leigh MD Aorta CTA 10/01/17 1556 Signed Impressions: Service Date/Time: Sunday, October 01, 2017 17:11 - CONCLUSION: 1. 7.3 cm infrarenal abdominal aortic aneurysm with laminated wall as described above. Findings suggest a contained rupture which may be chronic and possible associated aortic wall inflammation indicating aortitis. 2. Chronic liver disease characteristic of cirrhosis. 3. Splenomegaly 4. Cholelithiasis 5. Moderate ascites 6. No evidence of portal vein thrombosis or Budd-Chiari syndrome. 7. COPD with bibasilar airspace disease and parapneumonic effusions. 1. Herve Berumen MD Thoracentesis Ultrasound 10/01/17 0000 Signed Impressions: Service Date/Time: Sunday, October 01, 2017 11:27 - CONCLUSION: Uncomplicated ultrasound guided thoracentesis. Marc Alfredo MD Cyst Biopsy Asp-Paracentesis US 10/01/17 0000 Signed Impressions: Service Date/Time: Sunday, October 01, 2017 09:53 - CONCLUSION: Uncomplicated ultrasound guided paracentesis. Marc Alfredo MD Chest X-Ray 10/01/17 0000 Signed Impressions: Service Date/Time: Sunday, October 01, 2017 13:22 - CONCLUSION: 1. No significant pneumothorax with near resolution of left-sided pleural effusion following thoracentesis. Rohan Leigh MD Abdomen/Pelvis CT 09/30/17 0000 Signed Impressions: Service Date/Time: Sunday, October 01, 2017 02:21 - CONCLUSION: 1. 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 2. Moderate pleural effusions and moderate amount of abdominal pelvic ascites. 3. 2 calcified gallstones. David Blunt MD Chest CT 09/28/17 0000 Signed Impressions: Service Date/Time: Friday, September 29, 2017 01:23 - CONCLUSION: 1. The dominant opacity seen on recent chest x-ray represents loculated pleural effusion in the superior major fissure. 2. Small bilateral pleural effusions, mild consolidative infiltrates in the right lower lung, and right upper abdominal ascites. 3. Calcified gallstones. David Blunt MD Physical Exam GENERAL: Thin male, awake and alert, NAD SKIN: Warm and moist. Has blanching erythematous maculopapular rash, most prominent in his trunk and some in UE and LE, none in palms or soles, none in face. Rash in trunk is same, rash in BLE looks slightly worse, and rash BUE better EYES: Pupils equal and round and reactive. Extraocular motions intact. No scleral icterus. No injection or drainage. ENT: Nose without bleeding or purulent drainage. Moist mucosa, no oral lesions NECK: Supple and not tender CARDIOVASCULAR: Regular rate and rhythm without murmurs RESPIRATORY/CHEST: Decreased breath sounds bilaterally at bases. GASTROINTESTINAL: Abdomen soft, non-tender, mildly distended. No guarding. Bowel sounds present. MUSCULOSKELETAL: Extremities without clubbing, cyanosis. Mild pedal edema. No calf tenderness. NEUROLOGICAL: Awake and alert. Motor and sensory grossly within normal limits. Follows commands. clear speech. Moves all extremities. 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
[2017-10-22] MEDS: DRONABINOL 2.5 MG CAP PO SCH ×2 (11:54→16:12)
[2017-10-22 13:23] LABS: AMYLASE BODY FLUID 35 U/L; AMYLASE BODY FLUID TYPE PLEURAL FLUID
[2017-10-22] MEDS: ERTAPENEM INJ 1,000 MG in SODIUM CHLORIDE 0.9% INJ 100 ML IV SCH (14:13)
--- NOTE | 2017-10-22 19:28 | HHI.PR ---
Subjective Remarks Remains on a high Flow O2 cannula. and Fio2 at 40 % Has fluid overload. Went for Paracentesis and had 4 L drained.Better now. Objective Vital Signs Date Time Temp Pulse Resp B/P (MAP) Pulse Ox O2 Delivery O2 Flow Rate FiO2 10/22/17 18:00 92 10/22/17 16:00 96 15.00 45 10/22/17 16:00 115 10/22/17 16:00 98.1 95 16 98/65 (76) 96 10/22/17 14:00 87 10/22/17 12:00 88 10/22/17 12:00 97.9 88 16 99/63 (75) 95 10/22/17 12:00 95 15.00 45 10/22/17 10:00 89 10/22/17 09:13 92 High Flow Nasal Cannula 30.00 45 10/22/17 08:00 92 45 10/22/17 08:00 97.6 94 23 104/63 (77) 92 10/22/17 08:00 94 10/22/17 06:00 86 10/22/17 04:00 98.4 96 17 84/53 (63) 92 10/22/17 04:00 92 30.00 45 10/22/17 04:00 96 10/22/17 03:11 92 High Flow Nasal Cannula 30.00 45 10/22/17 02:00 95 10/22/17 00:00 96 10/22/17 00:00 92 25.00 40 10/22/17 00:00 98.2 96 20 84/51 (62) 90 10/21/17 22:00 97 10/21/17 20:10 94 High Flow Nasal Cannula 25.00 40 10/21/17 20:00 94 25.00 40 10/21/17 20:00 98.6 106 18 93/58 (70) 94 10/21/17 20:00 106 I/O 10/21/17 10/21/17 10/21/17 10/22/17 10/22/17 10/22/17 07:00 15:00 23:00 07:00 15:00 23:00 Intake Total 300 ml 516 ml 565 ml 1824 ml 176 ml 800 ml Output Total 350 ml 300 ml 600 ml Balance -50 ml 516 ml 565 ml 1524 ml 176 ml 200 ml Intake Oral 300 ml 240 ml 800 ml 600 ml IV Total 516 ml 325 ml 1024 ml 176 ml 200 ml Output Urine Total 250 ml 300 ml 600 ml Stool Total 100 ml # Voids 2 2 # Bowel Movements 2 1 2 Result Diagram: 10/22/1744510/22/17445 Objective Remarks GENERAL: This is a moderately overweight elderly white male who is alert . HEENT: Head normocephalic. Pupils are reactive. Sclerae anicteric. Throat was dry. He has no inflammation. NECK: Supple. No bruits or thyroid enlargement. CHEST: Distant breath sounds over the left mid lower chest with occasional bibasilar crackles. H S Regular ,No Murmur. No S3 gallop. ABDOMEN: Soft and protuberant. There is some tenderness in the upper abdomen The bowel sounds are active.No Mass. EXTREMITIES:1 + Edema with decreased peripheral pulses. Reflexes are 1+ with no gross motor deficits. SKIN: No lesions observed. Assessment and Plan Assessment and Plan IMPRESSION 1. Loculated left pleural effusion. Etiology undetermined. 2. History of hepatitis C. Ascites 3. GI bleeding with anemia and gastric ulceration. 4. Atelectasis both bases with probable resolving pneumonia 5. COPD with emphysema and chronic bronchitis 6. Sepsis resolved 7. Pancytopenia. 8. Abdominal aortic aneurysm. PLan : 1. Cont Aldactone 25 mg bid 2. IS at bedside q3h 3. Cont Lasix 20 mg IV daily. 4. Wean O2 to Keep sat > 92.Switch to N/C 5. Chest X ray in am 6. Continue antibiotics per ID 7. PT evaluation Yasemin Redding MD Oct 22, 2017 19:28
[2017-10-23] VITALS (14 sets, daily range): BP systolic 92–110; BP diastolic 53–73; PULSE 74–92; RESP 14–21; TEMP 97.5–98.8; O2SAT 95–100
[2017-10-23] MEDS: PANTOPRAZOLE SODIUM 40 MG VIAL IV PUSH SCH ×2 (01:48→14:16)
[2017-10-23] MEDS: metroNIDAZOLE 500 MG INJ 100 ML IV SCH ×3 (01:48→16:37)
[2017-10-23] MEDS: CHLORHEXIDINE GLUCONATE 2 % 1 PACK (2 CLOTHS)(taper/protocol) TOPICAL SCH (04:00)
--- NOTE | 2017-10-23 04:20 | RADRPT ---
EXAM DATE/TIME: 10/23/2017 03:25 [facility] COMPARISON: CHEST SINGLE AP, October 19, 2017, 16:12. INDICATIONS : Shortness of breath, possible pulmonary disease. MEDICAL HISTORY : Hepatitis C. Liver disease MRSA SURGICAL HISTORY : ENCOUNTER: Subsequent ACUITY: 3 days PAIN SCORE: Non-responsive. LOCATION: Bilateral chest FINDINGS: A single portable frontal view of the chest shows bilateral pleural effusions and bilateral predomina ntly basilar infiltrates. Both effect left or greater degree than the right. Both are stable from the prior study. Heart is normal in size. Aorta is calcified. CONCLUSION: Stable bilateral pleural effusions and predominantly basilar infiltrates. David Cordova Jr., MD on October 23, 2017 at 4:17 Board Certified Radiologist. This report was verified electronically.
[2017-10-23] MEDS: SODIUM CHLOR 0.9% 1000 ML INJ 1,000 ML IV SCH ×2 (07:40→18:32)
[2017-10-23 08:34] LABS: AUTOMATED NEUTROPHIL # 2.6 TH/MM3 (1.8-7.7); BASOPHIL % 0.3 % (0.0-2.0); EOSINOPHIL # 0.1 TH/MM3 (0-0.4); EOSINOPHIL % 2.4 % (0.0-4.0); HEMATOCRIT 28.1 % (39.0-51.0); HEMOGLOBIN 9.5 GM/DL (13.0-17.0); LYMPHOCYTE # 1.1 TH/MM3 (1.0-4.8); MEAN CELL VOLUME 93.8 FL (80.0-100.0); MEAN CORPUSCULAR HEMOGLOBIN 31.6 PG (27.0-34.0); MEAN CORPUSCULAR HGB CONC 33.7 % (32.0-36.0); MEAN PLATELET VOLUME 7.9 FL (7.0-11.0); MONO % 6.2 % (0.0-8.0); MONOCYTE # 0.3 TH/MM3 (0-0.9); NEUT % 64.1 % (16.0-70.0); PLATELET COUNT 34 TH/MM3 (150-450); RED CELL DISTRIBUTION WIDTH 17.8 % (11.6-17.2)
[2017-10-23 08:54] LABS: BICARBONATE 32.1 MEQ/L (21.0-32.0); CREATININE 0.45 MG/DL (0.60-1.30)
[2017-10-23] MEDS: POTASSIUM CHLORIDE 20 MEQ CONTROLLED RELEASE TAB PO SCH ×3 (09:00→20:47)
[2017-10-23] MEDS: COLLAGENASE OINT 30 GM TUBE TOPICAL SCH (09:00)
[2017-10-23] MEDS: SODIUM CHLORIDE 0.9% FLUSH 10 ML FLUSH IV FLUSH SCH ×2 (09:00→20:47)
[2017-10-23] MEDS: NYSTATIN 100,000 U/GM PWD 15 GM BTL TOPICAL SCH ×2 (09:00→20:48)
[2017-10-23] MEDS: FUROSEMIDE 20 MG TAB PO SCH (11:06)
[2017-10-23] MEDS: SPIRONOLACTONE 25 MG TAB PO SCH ×2 (11:06→18:00)
[2017-10-23] MEDS: predniSONE 20 MG TAB PO SCH (11:06)
[2017-10-23] MEDS: METOPROLOL TARTRATE 25 MG TAB PO SCH ×2 (11:06→20:47)
[2017-10-23] MEDS: FOLIC ACID 1 MG TAB PO SCH (11:07)
[2017-10-23] MEDS: FLUoxetine HCL 20 MG CAP PO SCH (11:07)
--- NOTE | 2017-10-23 12:02 | HHI.FPPN ---
Subjective Remarks Patient seen and examined today. States his appetite is better, "I when I want to eat." Reports he had a cheeseburger last night as well as a Pepsi. No shortness of breath, cough, mucus production, difficulty breathing, nausea, vomiting, fever, chills, abdominal pain, chest pain. No other complaints today. Objective Vitals Vital Signs Date Time Temp Pulse Resp B/P (MAP) Pulse Ox O2 Delivery O2 Flow Rate FiO2 10/23/17 10:00 77 10/23/17 08:56 96 High Flow Nasal Cannula 20.00 65 10/23/17 08:00 83 10/23/17 08:00 97.5 78 14 99/58 (72) 95 10/23/17 08:00 100 15.00 45 10/23/17 06:00 77 10/23/17 04:00 86 10/23/17 04:00 100 15.00 45 10/23/17 04:00 98.8 86 18 110/73 (85) 95 10/23/17 02:00 86 10/23/17 00:00 100 15.00 45 10/23/17 00:00 92 10/23/17 00:00 98.7 92 16 99/68 (78) 10/22/17 22:00 93 10/22/17 21:57 95 High Flow Nasal Cannula 20.00 70 10/22/17 21:55 88 High Flow Nasal Cannula 20.00 70 10/22/17 20:00 98.7 109 28 102/63 (76) 95 10/22/17 20:00 100 15.00 45 10/22/17 20:00 109 10/22/17 18:00 92 10/22/17 16:00 96 15.00 45 10/22/17 16:00 115 10/22/17 16:00 98.1 95 16 98/65 (76) 96 10/22/17 14:00 87 10/22/17 12:00 88 10/22/17 12:00 97.9 88 16 99/63 (75) 95 10/22/17 12:00 95 15.00 45 I/O 10/22/17 10/22/17 10/22/17 10/23/17 10/23/17 10/23/17 07:00 15:00 23:00 07:00 15:00 23:00 Intake Total 1824 ml 176 ml 800 ml 1424 ml Output Total 300 ml 600 ml Balance 1524 ml 176 ml 200 ml 1424 ml Intake Oral 800 ml 600 ml 400 ml IV Total 1024 ml 176 ml 200 ml 1024 ml Output Urine Total 300 ml 600 ml # Bowel Movements 1 2 Result Diagram: 10/23/17 0734 10/23/17 0734 Objective Remarks CONSTITUTIONAL/GEN: Cachectic male, lying in bed PSYCH/NEURO: AOx3. Flat affect. No CN defects. No peripheral motor/sensory defects. SKIN: Maculopapular rash extending from mid back along the left axilla and torso , spread to legs, improving since 10/22/17 LUNGS: Decreased breath sounds bilaterally; normal rate. Patient on high flow nasal cannula CARDIOVASCULAR: Regular rhythm; mild tachycardia. No LE edema GI/ABD: soft, normal BS; no pain to palpation : catheter in place; Dark urine in schaefer bag A/P Assessment and Plan 66 yr old M Hep C, hx of heavy smoking (2ppd for 61 yrs), and chronic aspirin use presented to the ED with anemia and black tarry stools secondary to suspected GI bleed. Patient transferred to ICU 09/30 for ESBL E.coli sepsis. Patient hemodynamically stable for transfer to med/surg 10/03. Patient confused/ delirious with hypercarbia 10/19; transferred to ICU for BIPAP. Discharge Planning Case Management to assist with SNF placement Pending workup and management of multiple chronic issues Problem List: (1) Hypoxia ICD Codes: R09.02 - Hypoxemia Status: Acute Plan: improved mental status. On high flow nasal cannula, currently at 20 L/m. Attempting to wean -Continue management in ICU -Transferred to floor when no longer dependent on high flow nasal cannula Venous blood gas (10/09) -pH 7.4, pCO2 60, pO2 24, HCO3 37 -Pulmonology consulted, follow-up recommendations * s/p thoracentesis 10/18 * Incentive spirometry * DuoNeb 4 times a day, when necessary * Aldactone 25mg BID * Lasix 20mg IV daily * Wean O2 to keep sat<92 * Lasix 20 mg daily Impression: Patient has been on substantial O2 requirement via NC since admission; recently hypoxia 10/15 with O2 saturations in upper 70's. Associated with anemia. Decreased breath sounds on exam; no wheezing. No symptoms appreciated by patient, no tachypnea. History of tobacco abuse. CT revealed dominant opacity seen on recent CXR represents loculated pleural effusion in the superior major fissure. Small b/l pleural effusions, mild consolidative infiltrates in the right lower lung, and right upper abdominal ascites. Calcified gallstones. Echo on 10/01 shows EF of 60-65%, normal LV systolic function S/p thoracentesis 10/01/2017- pleural fluid negative for malignancy CXR (10/15): no change; small to moderate left effusion (no interval change from 10/12 (pulmonary vascular congestion, L sided effusion)) ABG (10/15): pH 7.42, pCO2 57, pO2 55, O2 sat 85% ABG (10/17): pH 7.44, PCO2 56, PO2 71 CTA (10/16/2017): without evidence of PE, left-sided pleural effusion, ascites noted s/p transfusion (8 total U pRBC; most recently 2 U 10/17/2017) s/p L thoracentesis 10/18- 1300ml serosanguineous fluid aspirated (2) Bacteremia ICD Codes: R78.81 - Bacteremia Status: Acute Plan: ID consulted, appreciate recommendations * E.coli ESBL sepsis, source is likely GI, questionable SBP * Continue Ertapenem 1000 mg IV q24h (10/02) x 6-8 weeks per ID History: Transferred to med/surg floor 10/03; previously transferred to ICU secondary to ESBL sepsis. Patient met sepsis criteria 09/29 due to tachycardic at 95-113 and hypotension 86/53 Lactic acid 1.4 09/29, Repeat lactic acid 1.5 s/p 500cc bolus of NS, MIVF 140mls/hr 09/29 * CT abd/pelvis w/o contrast done 09/30 revealed moderate size left pleural effusion, ascites, 5cm infrarenal abdominal aortic aneurysm and mesenteric stranding. * CTA 10/01 7.3 cm AAA, contained rupture, cirrhosis, splenomegaly, cholelithiasis, moderate ascites, no evident of protal vein thrombosis or Budd- Chiari syndrome, COPD with bibasilar airspace disease and parapneumonic effusions * 2-D echo - 60-65% EF * Left pleural effusion- thoracentesis with removal of 750 cc of dark yellow fluid. Fluid appeared transudative. * Ascites- paracentesis with removal of 1100 cc of yellow fluids. This appeared due to portal hypertension. * Possibility of aortoenteric fistula Cultures: Blood- Cultures 10/10 NGTD Staph hominis 10/06 (pansensitive) ESBL E Coli 09/29 (resistant, to Ampicillin, Unasyn, Cefazolin, Cefepime, Cefuroxime, Levofloxacin) Antibiotic history: Vancomycin (restarted 10/07-10/11) Vancomycin 1,250mg IV q12h (09/29-10/01) Zosyn 4.5 gm IV q6h (started 09/30-09/22) Azithromycin 250mg PO daily (10/01-10/04) (3) Pancytopenia ICD Codes: D61.818 - Other pancytopenia Plan: 10/22/17 hemoglobin 9.8. No reported bleeding Hem/Onc consulted, appreciate recs -Neupogen PRN per Hematology -Monitor CBC and transfuse as needed -Continue daily folate Impression: Pancytopenia; failure to thrive. Per Hem Onc, treated in / cleared but titers elevated during hospitalization. WBC down since admission, Hb stable, plts trending down since admission A/P CT and CTA - pelvic ascites, 7.3cm infrarenal AAA, calcified gallstones, moderate pleural effusions, cirrhosis, CTA S/P thoracentesis, paracentesis Transfusion history: 8 total U pRBC (most recently 2 U pRBC given 10/17), 1 U FFP, 1 U platelets transfused (4) Rash and nonspecific skin eruption ICD Codes: R21 - Rash and other nonspecific skin eruption Status: Acute Plan: petechiae vs contact dermatitis vs drug reaction -Careful with Benadryl due to anticholinergic effects, but may use PRN -Per ID prednisone 40 mg daily, short course -Monitor for improvement or change Impression: Rash extending from patient's back, moderately in left axilla, mildly on left chest. Noted on 10/18. Suspect petechiae versus dermatitis (5) Delirium ICD Codes: R41.0 - Disorientation, unspecified Status: Resolved Plan: Ammonia wnl. Possible CO2 narcosis, no delirium today. -Continue O2 supplementation -Restart Dronabinol 2.5mg BID -Psychiatry consulted -Suspect delirium secondary to general medical condition -Consider initiating Haldol BID with titration to TID if needed; additional PRN Haldol for acute agitation; EKG if needed to assess QTC -Frequent reorientation/mobilization -Aggressive management of retention or constipation -Sitter preferred over restraints Impression: Worsening mental status per nursing staff with increased confusion. Patient somewhat disoriented on exam; no focal neurologic deficits. PMH alcholism, liver disease, COPD (6) AAA (abdominal aortic aneurysm) ICD Codes: I71.4 - Abdominal aortic aneurysm, without rupture Plan: CT abd/pelvis w/o contrast done 09/30 5cm infrarenal abdominal aortic aneurysm Aorta CTA 7.3 cm infrarenal AAA with laminated wall, contained rupture which may be chronic and possible associated aortic wall inflammation indicating aortitis Vascular surgery consulted, appreciate recs [facility] confirms that no intervention at this time No intervention for AAA until infection cleared -Continue to follow at this time -Add metoprolol tartrate 12.5mg BID for tachycardia (7) GI bleed ICD Codes: K92.2 - Gastrointestinal hemorrhage, unspecified Status: Resolved Plan: GI consulted for mesenteric stranding and ascites, appreciate recommendations -Protonix 40mg IV BID -Supportive care -Sign off; consult as needed Avoid NSAIDs and anticoagulation EGD in 2 months Colonoscopy in 2 years History: Hb of 6.1 upon admission,1 month hx of black tarry stools, chronic aspirin use Hemoccult performed by RN in ED on 09/28- positive EGD/colonoscopy demonstrated hiatal hernia, gastric ulcer, erosive gastritis and colon polyp Duo/stomach biopsy- Stomach, reactive/chemical gastropathy with intestinal metaplasia. Colon, sigmoid, adenomatous polyp HCV quant, less than 15 IUs/ ml, less than 1.18 log IUs/mlAlpha-feto protein wnl Elevated ferritin levels due to underlying cirrhosis most likely AMSA, AMA negative A1AT 148 Hemochromatosis workup negative Transfusion history: 8 total U pRBC (most recently 2 U pRBC given 10/17), 1 U FFP, 1 U platelets transfused (8) Hematuria ICD Codes: R31.9 - Hematuria, unspecified Status: Resolved Plan: -UA 09/30 moderate occult blood, unlikely traumatic, patient has condom catheter -PSA wnl 0.15 -Renal US 10/04 demonstrated small nonobstructing 3mm calyceal calculus in the mid left kidney. 1.4 cm cyst in the inferior pole of the right kidney. -Urology consulted, recs appreciated Urologic impression: gross hematuria (now resolved) of indeterminate etiology; abnormal coagulation profile and thrombocytopenia likely contributing to the hematuria * manage conservatively for now * office follow up after hospital discharge when overall medical condition improved for cystoscopic evaluation [phone] * will be available as needed during present hospitalization (9) Hepatitis C ICD Codes: B19.20 - Unspecified viral hepatitis C without hepatic coma Status: Acute Plan: -paracentesis 10/21/17 -Continue to monitor LFT's Impression: Patient reports history of Hep C. Patient reports being treated in the s. LFTs wnl. alpha fetoprotein wnl HCV quant, less than 15 IUs/ml, less than 1.18 log IUs/ml A/P CT with moderate pelvic ascites, calcified gallstones. Abdominal US- cirrhotic appearing liver; ascites in upper abdomen. Gallstones and thickened gallbladder wall. Splenomegaly; assumed secondary to portal hypertension/cirrhosis (10) Abnormal chest x-ray ICD Codes: R93.8 - Abnormal findings on diagnostic imaging of other specified body structures Plan: Impression: Heavy smoker. Mass 2.51 x 3.86 found on CXR. Small free- flowing right pleural effusion at the base. CT revealed dominant opacity seen on recent CXR represents loculated pleural effusion in the superior major fissure. Small b/l pleural effusions, mild consolidative infiltrates in the right lower lung, and right upper abdominal ascites. Calcified gallstones. S/p thoracentesis 10/01/2017- pleural fluid negative for malignancy (11) Decreased appetite ICD Codes: R63.0 - Anorexia Status: Acute Plan: Eating better, ate dinner on 10/21/17 -Will attempt to initiate tube feedings if continued failure to eat -Continue to monitor intake -Psychiatry consulted -Hold Remeron -Marinol restarted -Prozac 20mg daily Impression: Lack of oral intake during hospitalization in association with flat affect. Suspect possible depression as etiology. Patient agreeable to tube feedings (12) RALF (acute kidney injury) ICD Codes: N17.9 - Acute kidney failure, unspecified Status: Resolved Plan: -Resolved -Continue to monitor Impression: RALF secondary to dehydration BUN 28 and Cr 0.53 upon admission (13) Sacral wound ICD Codes: S31.000A - Unspecified open wound of lower back and pelvis without penetration into retroperitoneum, initial encounter Plan: Unstageable sacral wound, 3cm x 6cm Wound care consulted, recommendations appreciated 1) Cleanse sacral wound with normal saline,pat dry. 2) Apply skin prep to gibran wound 3) Santyl josé thick to wound bed 4) Cover with Maxorb 2 cut to fit. 5) Cover with dry dressing (boarder gauze) 6) Change dressing Daily (14) Nutrition, metabolism, and development symptoms ICD Codes: R63.8 - Other symptoms and signs concerning food and fluid intake Plan: Fluids: PO due to fluid overload Diet: Lack of PO intake; Regular Basic diet Electrolytes: monitor and replace as needed Other: Case management consulted GI ppx: Protonix 40mg IV q12h DVT ppx: SCDs See the residents documentation for details. I saw and evaluated the patient regarding the roland portions of this evaluation and agree with the residents findings and plans as written. Parts of this note were created using [employer] voice recognition software program. While efforts were made to correct any mistakes made by this software, some mistakes, errors, and omissions may remain in the final note that were not caught when the note was originally created. Problem Qualifiers (1) GI bleed: Qualified Codes: K92.2 - Gastrointestinal hemorrhage, unspecified (2) Sacral wound: Qualified Codes: S31.000D - Unspecified open wound of lower back and pelvis without penetration into retroperitoneum, subsequent encounter Edilson Shoemaker MD R1 Oct 23, 2017 12:02
[2017-10-23 13:37] LABS: AMYLASE BODY FLUID 9 U/L; AMYLASE BODY FLUID TYPE PERITONEAL
[2017-10-23] MEDS: ERTAPENEM INJ 1,000 MG in SODIUM CHLORIDE 0.9% INJ 100 ML IV SCH (14:16)
[2017-10-23] MEDS: DRONABINOL 2.5 MG CAP PO SCH ×2 (14:16→16:00)
--- NOTE | 2017-10-23 19:50 | HHI.IDPN ---
Subjective Subjective Remarks interim progress noted dw Dr Love: pt apparently developped rash, started on empiric sterroids and it improved blood clx remain negative cont to have diarrhea afebrile BP low Antibiotics Ertapenem Lines PIV Past Medical History Hep C Allergies: Coded Allergies: No Known Allergies (Unverified , 09/28/17) Objective . Vital Signs Date Time Temp Pulse Resp B/P (MAP) Pulse Ox O2 Delivery O2 Flow Rate FiO2 10/23/17 18:00 75 10/23/17 16:00 98.0 79 21 97/61 (73) 100 10/23/17 16:00 92 4.00 10/23/17 16:00 74 10/23/17 13:05 97 Nasal Cannula 5.00 10/23/17 12:00 97.6 76 14 92/53 (66) 100 10/23/17 12:00 79 10/23/17 12:00 100 15.00 45 10/23/17 10:00 77 10/23/17 08:56 96 High Flow Nasal Cannula 20.00 65 10/23/17 08:00 83 10/23/17 08:00 97.5 78 14 99/58 (72) 95 10/23/17 08:00 100 15.00 45 10/23/17 06:00 77 10/23/17 04:00 86 10/23/17 04:00 100 15.00 45 10/23/17 04:00 98.8 86 18 110/73 (85) 95 10/23/17 02:00 86 10/23/17 00:00 100 15.00 45 10/23/17 00:00 92 10/23/17 00:00 98.7 92 16 99/68 (78) 10/22/17 22:00 93 10/22/17 21:57 95 High Flow Nasal Cannula 20.00 70 10/22/17 21:55 88 High Flow Nasal Cannula 20.00 70 10/22/17 20:00 98.7 109 28 102/63 (76) 95 10/22/17 20:00 100 15.00 45 10/22/17 20:00 109 10/23/17 10/23/17 10/24/17 15:00 23:00 07:00 Intake Total 100 ml 1625 ml Output Total 1250 ml Balance 100 ml 375 ml Intake Oral 425 ml IV Total 100 ml 1200 ml Output Urine Total 1250 ml # Bowel Movements 1 . Laboratory Tests Test 10/22/17 04:46 10/23/17 07:34 White Blood Count 7.8 TH/MM3 4.0 TH/MM3 Red Blood Count 3.10 MIL/MM3 3.00 MIL/MM3 Hemoglobin 9.8 GM/DL 9.5 GM/DL Hematocrit 28.9 % 28.1 % Mean Corpuscular Volume 93.1 FL 93.8 FL Mean Corpuscular Hemoglobin 31.5 PG 31.6 PG Mean Corpuscular Hemoglobin Concent 33.9 % 33.7 % Red Cell Distribution Width 17.7 % 17.8 % Platelet Count 34 TH/MM3 34 TH/MM3 Mean Platelet Volume 8.3 FL 7.9 FL Neutrophils (%) (Auto) 82.2 % 64.1 % Lymphocytes (%) (Auto) 14.8 % 27.0 % Monocytes (%) (Auto) 2.2 % 6.2 % Eosinophils (%) (Auto) 0.2 % 2.4 % Basophils (%) (Auto) 0.6 % 0.3 % Neutrophils # (Auto) 6.4 TH/MM3 2.6 TH/MM3 Lymphocytes # (Auto) 1.2 TH/MM3 1.1 TH/MM3 Monocytes # (Auto) 0.2 TH/MM3 0.3 TH/MM3 Eosinophils # (Auto) 0.0 TH/MM3 0.1 TH/MM3 Basophils # (Auto) 0.0 TH/MM3 0.0 TH/MM3 CBC Comment AUTO DIFF AUTO DIFF Differential Total Cells Counted 100 Neutrophils % (Manual) 76 % Band Neutrophils % 13 % Lymphocytes % 6 % Monocytes % 4 % Basophils % 1 % Neutrophils # (Manual) 6.9 TH/MM3 Nucleated Red Blood Cells 1 /100 WBC Differential Comment FINAL DIFF MANUAL AUTO DIFF CONFIRMED Toxic Vacuolation PRESENT Platelet Estimate LOW LOW Platelet Morphology Comment NORMAL NORMAL Basophilic Stippling MOD Laboratory Tests Test 10/22/17 04:46 10/23/17 07:34 Blood Urea Nitrogen 20 MG/DL 18 MG/DL Creatinine 0.55 MG/DL 0.45 MG/DL Random Glucose 109 MG/DL 81 MG/DL Calcium Level 8.1 MG/DL 8.0 MG/DL Sodium Level 143 MEQ/L 141 MEQ/L Potassium Level 3.7 MEQ/L 3.5 MEQ/L Chloride Level 102 MEQ/L 104 MEQ/L Carbon Dioxide Level 33.5 MEQ/L 32.1 MEQ/L Anion Gap 8 MEQ/L 5 MEQ/L Estimat Glomerular Filtration Rate 149 ML/MIN 187 ML/MIN Microbiology Date/Time Source Procedure Growth Status 10/21/17 14:00 Fluid Peritoneal Fluid Gram Stain - Final Resulted 10/21/17 14:00 Fluid Peritoneal Fluid Body Fluid Culture - Preliminary NO GROWTH IN 48 HOURS. Resulted 10/22/17 05:26 Stool Stool - Final NO ENTERIC PATHOGENS DETECTED BY PCR... Complete 10/22/17 05:26 Stool Stool Rotavirus Antigen - Final NEGATIVE - ROTAVIRUS ANTIGEN IS ABSEN... Complete Imaging Last Impressions Chest X-Ray 10/23/17 0600 Signed Impressions: Service Date/Time: October 03:25 - CONCLUSION: Stable bilateral pleural effusions and predominantly basilar infiltrates. David Cordova Jr., MD Cyst Biopsy Asp-Paracentesis US 10/21/17 0000 Signed Impressions: Service Date/Time: Saturday, October 21, 2017 10:26 - CONCLUSION: Uncomplicated ultrasound guided paracentesis. Enrrique Mcclellan MD Abdomen Ultrasound 10/19/17 0000 Signed Impressions: Service Date/Time: Thursday, October 19, 2017 08:28 - CONCLUSION: 1. Cirrhotic appearing liver. There is ascites seen in the upper abdomen. 2. Gallstones and a thickened gallbladder wall. This can be correlated with any signs of cholecystitis. Gallbladder wall thickening can be seen with hepatic disease. 3. 5.4 cm abdominal aortic aneurysm. 4. Mild to moderate dilatation of the left collecting system. 5. Splenomegaly. This may be secondary to portal hypertension and the patient's cirrhosis. Nicko Camacho MD Chest Ultrasound 10/17/17 0000 Signed Impressions: Service Date/Time: Tuesday, October 17, 2017 22:23 - CONCLUSION: Moderate to large pleural effusion. Patient was marked for thoracentesis. Edilson Abreu MD CT Angiography 10/16/17 0000 Signed Impressions: Service Date/Time: September 14:10 - CONCLUSION: 1. No evidence of pulmonary embolism 2. Moderate to large left-sided pleural effusion with compressive atelectasis of the left lower lung 3. Small right-sided pleural effusion with atelectasis in the right lung base. 4. Ascites in the upper abdomen. Justo J. Siragusa, MD Renal Ultrasound 10/04/17 0000 Signed Impressions: Service Date/Time: Wednesday, October 04, 2017 10:29 - CONCLUSION: 1. Small nonobstructing 3 mm calyceal calculus in the mid left kidney. 2. 1.4 cm cyst in the inferior pole of the right kidney. 3. Small amount of ascites. Rohan Leigh MD Aorta CTA 10/01/17 1556 Signed Impressions: Service Date/Time: Sunday, October 01, 2017 17:11 - CONCLUSION: 1. 7.3 cm infrarenal abdominal aortic aneurysm with laminated wall as described above. Findings suggest a contained rupture which may be chronic and possible associated aortic wall inflammation indicating aortitis. 2. Chronic liver disease characteristic of cirrhosis. 3. Splenomegaly 4. Cholelithiasis 5. Moderate ascites 6. No evidence of portal vein thrombosis or Budd-Chiari syndrome. 7. COPD with bibasilar airspace disease and parapneumonic effusions. 1. Herve Berumen MD Thoracentesis Ultrasound 10/01/17 0000 Signed Impressions: Service Date/Time: Sunday, October 01, 2017 11:27 - CONCLUSION: Uncomplicated ultrasound guided thoracentesis. Marc Alfredo MD Abdomen/Pelvis CT 09/30/17 0000 Signed Impressions: Service Date/Time: Sunday, October 01, 2017 02:21 - CONCLUSION: 1. 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 2. Moderate pleural effusions and moderate amount of abdominal pelvic ascites. 3. 2 calcified gallstones. David Blunt MD Chest CT 09/28/17 0000 Signed Impressions: Service Date/Time: Friday, September 29, 2017 01:23 - CONCLUSION: 1. The dominant opacity seen on recent chest x-ray represents loculated pleural effusion in the superior major fissure. 2. Small bilateral pleural effusions, mild consolidative infiltrates in the right lower lung, and right upper abdominal ascites. 3. Calcified gallstones. David Blunt MD Physical Exam GENERAL: Thin male, awake and alert, NAD SKIN: Warm and moist. Has non blanching erythematous petechial rash, most prominent in his trunk and some in UE and LE, none in palms or soles, none in face. Rash in trunk is same, rash in BLE looks slightly worse, and rash BUE better EYES: Pupils equal and round and reactive. Extraocular motions intact. No scleral icterus. No injection or drainage. Mucosae is clear ENT: Nose without bleeding or purulent drainage. Moist mucosa, no oral lesions NECK: Supple and not tender CARDIOVASCULAR: Regular rate and rhythm without murmurs RESPIRATORY/CHEST: Decreased breath sounds bilaterally at bases. GASTROINTESTINAL: Abdomen soft, non-tender, mildly distended. No guarding. Bowel sounds present. MUSCULOSKELETAL: Extremities without clubbing, cyanosis. Mild pedal edema. No calf tenderness. NEUROLOGICAL: Awake and alert. Motor and sensory grossly within normal limits. Follows commands. clear speech. Moves all extremities. 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 plt disfunction: pt is trombiocytopenic , rash currently most prominent in BLE where he has ICDs, non pruritic, non raised, non blanchible PLAN: Continue Ertapenem, will not change @ this point - initial plan is to give Abx until nov 25 Follow rash Short course of steroids Monitor progress D/W med team Marleni Giraldo MD Oct 23, 2017 19:50
--- NOTE | 2017-10-23 20:46 | HHI.PR ---
Subjective Remarks Remains on a high Flow O2 cannula. and keeps it off Went for Paracentesis and had 4 L drained.Better now. Objective Vital Signs Date Time Temp Pulse Resp B/P (MAP) Pulse Ox O2 Delivery O2 Flow Rate FiO2 10/23/17 20:00 100 4.00 10/23/17 20:00 98.6 74 14 102/62 (75) 100 10/23/17 19:48 99 Nasal Cannula 3.00 10/23/17 18:00 75 10/23/17 16:00 98.0 79 21 97/61 (73) 100 10/23/17 16:00 92 4.00 10/23/17 16:00 74 10/23/17 13:05 97 Nasal Cannula 5.00 10/23/17 12:00 97.6 76 14 92/53 (66) 100 10/23/17 12:00 79 10/23/17 12:00 100 15.00 45 10/23/17 10:00 77 10/23/17 08:56 96 High Flow Nasal Cannula 20.00 65 10/23/17 08:00 83 10/23/17 08:00 97.5 78 14 99/58 (72) 95 10/23/17 08:00 100 15.00 45 10/23/17 06:00 77 10/23/17 04:00 86 10/23/17 04:00 100 15.00 45 10/23/17 04:00 98.8 86 18 110/73 (85) 95 10/23/17 02:00 86 10/23/17 00:00 100 15.00 45 10/23/17 00:00 92 10/23/17 00:00 98.7 92 16 99/68 (78) 10/22/17 22:00 93 10/22/17 21:57 95 High Flow Nasal Cannula 20.00 70 10/22/17 21:55 88 High Flow Nasal Cannula 20.00 70 I/O 10/22/17 10/22/17 10/22/17 10/23/17 10/23/17 10/23/17 07:00 15:00 23:00 07:00 15:00 23:00 Intake Total 1824 ml 176 ml 800 ml 1424 ml 100 ml 1625 ml Output Total 300 ml 600 ml 1250 ml Balance 1524 ml 176 ml 200 ml 1424 ml 100 ml 375 ml Intake Oral 800 ml 600 ml 400 ml 425 ml IV Total 1024 ml 176 ml 200 ml 1024 ml 100 ml 1200 ml Output Urine Total 300 ml 600 ml 1250 ml # Bowel Movements 1 2 1 Result Diagram: 10/23/1734 10/23/1734 Objective Remarks GENERAL: This is a moderately overweight elderly white male who is alert . HEENT: Head normocephalic. Pupils are reactive. Sclerae anicteric. Throat was dry. He has no inflammation. NECK: Supple. No bruits or thyroid enlargement. CHEST: Distant breath sounds over the lower chest with occasional bibasilar crackles. H S Regular ,No Murmur. No S3 gallop. ABDOMEN: Soft and protuberant. There is some tenderness in the upper abdomen The bowel sounds are active.No Mass. EXTREMITIES:1 + Edema with decreased peripheral pulses. Reflexes are 1+ with no gross motor deficits. SKIN: No lesions observed. Assessment and Plan Assessment and Plan IMPRESSION 1. Loculated left pleural effusion. Etiology undetermined. 2. History of hepatitis C. Ascites 3. GI bleeding with anemia and gastric ulceration. 4. Atelectasis both bases with probable resolving pneumonia 5. COPD with emphysema and chronic bronchitis 6. Sepsis resolved 7. Pancytopenia. 8. Abdominal aortic aneurysm. PLan : 1. Cont Aldactone 25 mg bid 2. IS at bedside q3h 3. Cont Lasix 20 mg daily. 4. Wean O2 and Switch to N/C 3 L 5. CBC,BMP 6. Continue antibiotics per ID 7. PT evaluation Yasemin Redding MD Oct 23, 2017 20:46
[2017-10-24] VITALS (13 sets, daily range): BP systolic 85–104; BP diastolic 52–70; PULSE 70–91; RESP 14–30; TEMP 95.7–98.7; O2SAT 92–100
[2017-10-24] MEDS: metroNIDAZOLE 500 MG INJ 100 ML IV SCH ×3 (03:35→17:10)
[2017-10-24] MEDS: CHLORHEXIDINE GLUCONATE 2 % 1 PACK (2 CLOTHS)(taper/protocol) TOPICAL SCH (03:36)
[2017-10-24] MEDS: PANTOPRAZOLE SODIUM 40 MG VIAL IV PUSH SCH ×2 (03:36→15:46)
[2017-10-24 05:39] LABS: AUTOMATED NEUTROPHIL # 1.8 TH/MM3 (1.8-7.7); BASOPHIL % 0.3 % (0.0-2.0); EOSINOPHIL # 0.1 TH/MM3 (0-0.4); HEMATOCRIT 28.2 % (39.0-51.0); HEMOGLOBIN 9.3 GM/DL (13.0-17.0); LYMPH % 31.5 % (9.0-44.0); MEAN CELL VOLUME 93.1 FL (80.0-100.0); MEAN CORPUSCULAR HEMOGLOBIN 30.8 PG (27.0-34.0); MEAN CORPUSCULAR HGB CONC 33.1 % (32.0-36.0); MONO % 6.6 % (0.0-8.0); MONOCYTE # 0.2 TH/MM3 (0-0.9); NEUT % 59.6 % (16.0-70.0); PLATELET COUNT 40 TH/MM3 (150-450); RED BLOOD COUNT 3.03 MIL/MM3 (4.50-5.90); RED CELL DISTRIBUTION WIDTH 17.5 % (11.6-17.2); WHITE BLOOD COUNT 3.1 TH/MM3 (4.0-11.0)
[2017-10-24 05:50] LABS: BICARBONATE 36.4 MEQ/L (21.0-32.0); CALCIUM 7.8 MG/DL (8.5-10.1); CREATININE 0.37 MG/DL (0.60-1.30)
[2017-10-24 08:37] LABS: OVALOCYTES 1+ (NORMAL)
[2017-10-24] MEDS: predniSONE 20 MG TAB PO SCH (08:45)
[2017-10-24] MEDS: SODIUM CHLOR 0.9% 1000 ML INJ 1,000 ML IV SCH ×2 (08:45→18:06)
[2017-10-24] MEDS: FOLIC ACID 1 MG TAB PO SCH (08:45)
[2017-10-24] MEDS: SPIRONOLACTONE 25 MG TAB PO SCH ×2 (08:45→18:01)
[2017-10-24] MEDS: FLUoxetine HCL 20 MG CAP PO SCH (08:46)
[2017-10-24] MEDS: FUROSEMIDE 20 MG TAB PO SCH (08:46)
[2017-10-24] MEDS: SODIUM CHLORIDE 0.9% FLUSH 10 ML FLUSH IV FLUSH SCH ×2 (08:46→21:45)
[2017-10-24] MEDS: POTASSIUM CHLORIDE 20 MEQ CONTROLLED RELEASE TAB PO SCH ×3 (08:46→21:45)
[2017-10-24] MEDS: BUDESONIDE-FORMOTEROL 160/4.5 MCG INHALER INH SCH ×2 (08:47→21:45)
[2017-10-24] MEDS: METOPROLOL TARTRATE 25 MG TAB PO SCH ×2 (08:47→21:46)
[2017-10-24] MEDS: NYSTATIN 100,000 U/GM PWD 15 GM BTL TOPICAL SCH ×2 (08:50→21:46)
[2017-10-24] MEDS: COLLAGENASE OINT 30 GM TUBE TOPICAL SCH (08:50)
[2017-10-24] MEDS: DRONABINOL 2.5 MG CAP PO SCH ×2 (11:11→16:00)
--- NOTE | 2017-10-24 13:49 | HHI.FPPN ---
Subjective Remarks Patient seen and examined this morning. No acute events overnight. Pt converted to nasal cannula from high flow. Oxygen saturation stable on 3L oxygen. Ate some pudding last night. Continues to endorse decreased appetite. Denies any chest pain, SOB, abdominal pain, leg pain. (John Gotti MD, R2) Objective Vitals Vital Signs Date Time Temp Pulse Resp B/P (MAP) Pulse Ox O2 Delivery O2 Flow Rate FiO2 10/24/17 12:00 97.2 70 16 85/52 (63) 94 10/24/17 10:00 84 10/24/17 08:51 100 Nasal Cannula 3.00 10/24/17 08:00 98 3.00 10/24/17 08:00 96.6 79 14 91/59 (70) 98 10/24/17 08:00 79 10/24/17 06:00 79 10/24/17 04:00 82 10/24/17 04:00 98 3.00 10/24/17 04:00 98.5 82 30 100/56 (71) 98 10/24/17 02:00 84 10/24/17 00:00 98.7 82 16 101/58 (72) 99 10/24/17 00:00 82 10/24/17 00:00 98 3.00 10/23/17 22:00 80 10/23/17 20:00 100 4.00 10/23/17 20:00 74 10/23/17 20:00 98.6 74 14 102/62 (75) 100 10/23/17 19:48 99 Nasal Cannula 3.00 10/23/17 18:00 75 10/23/17 16:00 98.0 79 21 97/61 (73) 100 10/23/17 16:00 92 4.00 10/23/17 16:00 74 I/O 10/23/17 10/23/17 10/23/17 10/24/17 10/24/17 10/24/17 07:00 15:00 23:00 07:00 15:00 23:00 Intake Total 1424 ml 100 ml 1625 ml 300 ml Output Total 1250 ml 1050 ml Balance 1424 ml 100 ml 375 ml -750 ml Intake Oral 400 ml 425 ml 200 ml IV Total 1024 ml 100 ml 1200 ml 100 ml Output Urine Total 1250 ml 1050 ml # Bowel Movements 1 (John Gotti MD, R2) Result Diagram: 10/24/1742110/24/17421 Objective Remarks CONSTITUTIONAL/GEN: Cachectic male, lying in bed PSYCH/NEURO: AOx3. Flat affect. No CN defects. No peripheral motor/sensory defects. SKIN: Maculopapular rash extending from mid back along the left axilla and torso , spread to legs, continues to improve LUNGS: Decreased breath sounds bilaterally; normal rate. Patient on nasal cannula CARDIOVASCULAR: Regular rhythm; mild tachycardia. No LE edema GI/ABD: soft, normal BS; no pain to palpation : catheter in place; Dark urine in schaefer bag (John Gotti MD, R2) A/P Assessment and Plan 66 yr old M Hep C, hx of heavy smoking (2ppd for 61 yrs), and chronic aspirin use presented to the ED with anemia and black tarry stools secondary to suspected GI bleed. Patient transferred to ICU 09/30 for ESBL E.coli sepsis. Patient hemodynamically stable for transfer to med/surg 10/03. Patient confused/ delirious with hypercarbia 10/19; transferred to ICU for BIPAP. Discharge Planning Case Management to assist with SNF placement Pending workup and management of multiple chronic issues (John Gotti MD, R2) Problem List: (1) Hypoxia ICD Codes: R09.02 - Hypoxemia Status: Acute Plan: improved mental status. On nasal cannula now -Transferred to med/surg floor -Continue to monitor -Pulmonology consulted, follow-up recommendations * s/p thoracentesis 10/18 * Incentive spirometry * DuoNeb 4 times a day, when necessary * Aldactone 25mg BID * Lasix 20mg IV daily * O2 to keep sat>92 * Lasix 20 mg daily Impression: Patient has been on substantial O2 requirement via NC since admission; recently hypoxia 10/15 with O2 saturations in upper 70's. Associated with anemia. Decreased breath sounds on exam; no wheezing. No symptoms appreciated by patient, no tachypnea. History of tobacco abuse. CT revealed dominant opacity seen on recent CXR represents loculated pleural effusion in the superior major fissure. Small b/l pleural effusions, mild consolidative infiltrates in the right lower lung, and right upper abdominal ascites. Calcified gallstones. Echo on 10/01 shows EF of 60-65%, normal LV systolic function S/p thoracentesis 10/01/2017- pleural fluid negative for malignancy CXR (10/15): no change; small to moderate left effusion (no interval change from 10/12 (pulmonary vascular congestion, L sided effusion)) ABG (10/15): pH 7.42, pCO2 57, pO2 55, O2 sat 85% ABG (10/17): pH 7.44, PCO2 56, PO2 71 CTA (10/16/2017): without evidence of PE, left-sided pleural effusion, ascites noted s/p transfusion (8 total U pRBC; most recently 2 U 10/17/2017) s/p L thoracentesis 10/18- 1300ml serosanguineous fluid aspirated Venous blood gas (10/09) -pH 7.4, pCO2 60, pO2 24, HCO3 37 (2) Bacteremia ICD Codes: R78.81 - Bacteremia Status: Acute Plan: ID consulted, appreciate recommendations * E.coli ESBL sepsis, source is likely GI, questionable SBP * Continue Ertapenem 1000 mg IV q24h (10/02) x 6-8 weeks per ID History: Transferred to med/surg floor 10/03; previously transferred to ICU secondary to ESBL sepsis. Patient met sepsis criteria 09/29 due to tachycardic at 95-113 and hypotension 86/53 Lactic acid 1.4 09/29, Repeat lactic acid 1.5 s/p 500cc bolus of NS, MIVF 140mls/hr 09/29 * CT abd/pelvis w/o contrast done 09/30 revealed moderate size left pleural effusion, ascites, 5cm infrarenal abdominal aortic aneurysm and mesenteric stranding. * CTA 10/01 7.3 cm AAA, contained rupture, cirrhosis, splenomegaly, cholelithiasis, moderate ascites, no evident of protal vein thrombosis or Budd- Chiari syndrome, COPD with bibasilar airspace disease and parapneumonic effusions * 2-D echo - 60-65% EF * Left pleural effusion- thoracentesis with removal of 750 cc of dark yellow fluid. Fluid appeared transudative. * Ascites- paracentesis with removal of 1100 cc of yellow fluids. This appeared due to portal hypertension. * Possibility of aortoenteric fistula Cultures: Blood- Cultures 10/10 NGTD Staph hominis 10/06 (pansensitive) ESBL E Coli 09/29 (resistant, to Ampicillin, Unasyn, Cefazolin, Cefepime, Cefuroxime, Levofloxacin) Antibiotic history: Vancomycin (restarted 10/07-10/11) Vancomycin 1,250mg IV q12h (09/29-10/01) Zosyn 4.5 gm IV q6h (started 09/30-09/22) Azithromycin 250mg PO daily (10/01-10/04) (3) Pancytopenia ICD Codes: D61.818 - Other pancytopenia Plan: Labile WBC, stable Hgb Hem/Onc consulted, appreciate recs -Neupogen PRN per Hematology -Monitor CBC and transfuse as needed -Continue daily folate Impression: Pancytopenia; failure to thrive. Per Hem Onc, treated in / cleared but titers elevated during hospitalization. WBC down since admission, Hb stable, plts trending down since admission A/P CT and CTA - pelvic ascites, 7.3cm infrarenal AAA, calcified gallstones, moderate pleural effusions, cirrhosis, CTA S/P thoracentesis, paracentesis Transfusion history: 8 total U pRBC (most recently 2 U pRBC given 10/17), 1 U FFP, 1 U platelets transfused (4) Rash and nonspecific skin eruption ICD Codes: R21 - Rash and other nonspecific skin eruption Status: Acute Plan: petechiae vs contact dermatitis vs drug reaction; Improving significantly -Careful with Benadryl due to anticholinergic effects, but may use PRN -Per ID prednisone 40 mg daily, short course -Monitor for improvement or change Impression: Rash extending from patient's back, moderately in left axilla, mildly on left chest. Noted on 10/18. Suspect petechiae versus dermatitis (5) Delirium ICD Codes: R41.0 - Disorientation, unspecified Status: Resolved Plan: Ammonia wnl. Possible CO2 narcosis, no delirium today. -Continue O2 supplementation -Dronabinol 2.5mg BID -Psychiatry consulted -Suspect delirium secondary to general medical condition -Consider initiating Haldol BID with titration to TID if needed; additional PRN Haldol for acute agitation; EKG if needed to assess QTC -Frequent reorientation/mobilization -Aggressive management of retention or constipation -Sitter preferred over restraints Impression: Worsening mental status per nursing staff with increased confusion. Patient somewhat disoriented on exam; no focal neurologic deficits. PMH alcholism, liver disease, COPD (6) AAA (abdominal aortic aneurysm) ICD Codes: I71.4 - Abdominal aortic aneurysm, without rupture Plan: CT abd/pelvis w/o contrast done 09/30 5cm infrarenal abdominal aortic aneurysm Aorta CTA 7.3 cm infrarenal AAA with laminated wall, contained rupture which may be chronic and possible associated aortic wall inflammation indicating aortitis Vascular surgery consulted, appreciate recs [facility] confirms that no intervention at this time No intervention for AAA until infection cleared -Continue to follow at this time -Add metoprolol tartrate 12.5mg BID for tachycardia (7) GI bleed ICD Codes: K92.2 - Gastrointestinal hemorrhage, unspecified Status: Resolved Plan: GI consulted for mesenteric stranding and ascites, appreciate recommendations -Protonix 40mg IV BID -Supportive care -Sign off; consult as needed Avoid NSAIDs and anticoagulation EGD in 2 months Colonoscopy in 2 years History: Hb of 6.1 upon admission,1 month hx of black tarry stools, chronic aspirin use Hemoccult performed by RN in ED on 09/28- positive EGD/colonoscopy demonstrated hiatal hernia, gastric ulcer, erosive gastritis and colon polyp Duo/stomach biopsy- Stomach, reactive/chemical gastropathy with intestinal metaplasia. Colon, sigmoid, adenomatous polyp HCV quant, less than 15 IUs/ ml, less than 1.18 log IUs/mlAlpha-feto protein wnl Elevated ferritin levels due to underlying cirrhosis most likely AMSA, AMA negative A1AT 148 Hemochromatosis workup negative Transfusion history: 8 total U pRBC (most recently 2 U pRBC given 10/17), 1 U FFP, 1 U platelets transfused (8) Hematuria ICD Codes: R31.9 - Hematuria, unspecified Status: Resolved Plan: -UA 09/30 moderate occult blood, unlikely traumatic, patient has condom catheter -PSA wnl 0.15 -Renal US 10/04 demonstrated small nonobstructing 3mm calyceal calculus in the mid left kidney. 1.4 cm cyst in the inferior pole of the right kidney. -Urology consulted, recs appreciated Urologic impression: gross hematuria (now resolved) of indeterminate etiology; abnormal coagulation profile and thrombocytopenia likely contributing to the hematuria * manage conservatively for now * office follow up after hospital discharge when overall medical condition improved for cystoscopic evaluation [phone] * will be available as needed during present hospitalization (9) Hepatitis C ICD Codes: B19.20 - Unspecified viral hepatitis C without hepatic coma Status: Acute Plan: -paracentesis 10/21/17 -Continue to monitor LFT's Impression: Patient reports history of Hep C. Patient reports being treated in the 's. LFTs wnl. alpha fetoprotein wnl HCV quant, less than 15 IUs/ml, less than 1.18 log IUs/ml A/P CT with moderate pelvic ascites, calcified gallstones. Abdominal US- cirrhotic appearing liver; ascites in upper abdomen. Gallstones and thickened gallbladder wall. Splenomegaly; assumed secondary to portal hypertension/cirrhosis (10) Abnormal chest x-ray ICD Codes: R93.8 - Abnormal findings on diagnostic imaging of other specified body structures Plan: Impression: Heavy smoker. Mass 2.51 x 3.86 found on CXR. Small free- flowing right pleural effusion at the base. CT revealed dominant opacity seen on recent CXR represents loculated pleural effusion in the superior major fissure. Small b/l pleural effusions, mild consolidative infiltrates in the right lower lung, and right upper abdominal ascites. Calcified gallstones. S/p thoracentesis 10/01/2017- pleural fluid negative for malignancy (11) Decreased appetite ICD Codes: R63.0 - Anorexia Status: Acute Plan: Eating better, ate dinner on 10/21/17 -Will attempt to initiate tube feedings if continued failure to eat -Continue to monitor intake -Psychiatry consulted -Hold Remeron -Marinol restarted -Prozac 20mg daily Impression: Lack of oral intake during hospitalization in association with flat affect. Suspect possible depression as etiology. Patient agreeable to tube feedings (12) RALF (acute kidney injury) ICD Codes: N17.9 - Acute kidney failure, unspecified Status: Resolved Plan: -Resolved -Continue to monitor Impression: RALF secondary to dehydration BUN 28 and Cr 0.53 upon admission (13) Sacral wound ICD Codes: S31.000A - Unspecified open wound of lower back and pelvis without penetration into retroperitoneum, initial encounter Plan: Unstageable sacral wound, 3cm x 6cm Wound care consulted, recommendations appreciated 1) Cleanse sacral wound with normal saline,pat dry. 2) Apply skin prep to gibran wound 3) Santyl josé thick to wound bed 4) Cover with Maxorb 2 cut to fit. 5) Cover with dry dressing (boarder gauze) 6) Change dressing Daily (14) Nutrition, metabolism, and development symptoms ICD Codes: R63.8 - Other symptoms and signs concerning food and fluid intake Plan: Fluids: PO due to fluid overload Diet: Lack of PO intake; Regular Basic diet Electrolytes: monitor and replace as needed Other: Case management consulted GI ppx: Protonix 40mg IV q12h DVT ppx: SCDs (John Gotti MD, R2) Problem List: (1) Hypoxia ICD Codes: R09.02 - Hypoxemia Status: Acute Plan: improved mental status. On nasal cannula now -Transferred to med/surg floor -Continue to monitor -Pulmonology consulted, follow-up recommendations * s/p thoracentesis 10/18 * Incentive spirometry * DuoNeb 4 times a day, when necessary * Aldactone 25mg BID * Lasix 20mg IV daily * O2 to keep sat>92 * Lasix 20 mg daily Impression: Patient has been on substantial O2 requirement via NC since admission; recently hypoxia 10/15 with O2 saturations in upper 70's. Associated with anemia. Decreased breath sounds on exam; no wheezing. No symptoms appreciated by patient, no tachypnea. History of tobacco abuse. CT revealed dominant opacity seen on recent CXR represents loculated pleural effusion in the superior major fissure. Small b/l pleural effusions, mild consolidative infiltrates in the right lower lung, and right upper abdominal ascites. Calcified gallstones. Echo on 10/01 shows EF of 60-65%, normal LV systolic function S/p thoracentesis 10/01/2017- pleural fluid negative for malignancy CXR (10/15): no change; small to moderate left effusion (no interval change from 10/12 (pulmonary vascular congestion, L sided effusion)) ABG (10/15): pH 7.42, pCO2 57, pO2 55, O2 sat 85% ABG (10/17): pH 7.44, PCO2 56, PO2 71 CTA (10/16/2017): without evidence of PE, left-sided pleural effusion, ascites noted s/p transfusion (8 total U pRBC; most recently 2 U 10/17/2017) s/p L thoracentesis 10/18- 1300ml serosanguineous fluid aspirated Venous blood gas (10/09) -pH 7.4, pCO2 60, pO2 24, HCO3 37 (2) Bacteremia ICD Codes: R78.81 - Bacteremia Status: Acute Plan: ID consulted, appreciate recommendations * E.coli ESBL sepsis, source is likely GI, questionable SBP * Continue Ertapenem 1000 mg IV q24h (10/02) x 6-8 weeks per ID History: Transferred to med/surg floor 10/03; previously transferred to ICU secondary to ESBL sepsis. Patient met sepsis criteria 09/29 due to tachycardic at 95-113 and hypotension 86/53 Lactic acid 1.4 09/29, Repeat lactic acid 1.5 s/p 500cc bolus of NS, MIVF 140mls/hr 09/29 * CT abd/pelvis w/o contrast done 09/30 revealed moderate size left pleural effusion, ascites, 5cm infrarenal abdominal aortic aneurysm and mesenteric stranding. * CTA 10/01 7.3 cm AAA, contained rupture, cirrhosis, splenomegaly, cholelithiasis, moderate ascites, no evident of protal vein thrombosis or Budd- Chiari syndrome, COPD with bibasilar airspace disease and parapneumonic effusions * 2-D echo - 60-65% EF * Left pleural effusion- thoracentesis with removal of 750 cc of dark yellow fluid. Fluid appeared transudative. * Ascites- paracentesis with removal of 1100 cc of yellow fluids. This appeared due to portal hypertension. * Possibility of aortoenteric fistula Cultures: Blood- Cultures 10/10 NGTD Staph hominis 10/06 (pansensitive) ESBL E Coli 09/29 (resistant, to Ampicillin, Unasyn, Cefazolin, Cefepime, Cefuroxime, Levofloxacin) Antibiotic history: Vancomycin (restarted 10/07-10/11) Vancomycin 1,250mg IV q12h (09/29-10/01) Zosyn 4.5 gm IV q6h (started 09/30-09/22) Azithromycin 250mg PO daily (10/01-10/04) (3) Pancytopenia ICD Codes: D61.818 - Other pancytopenia Plan: Labile WBC, stable Hgb Hem/Onc consulted, appreciate recs -Neupogen PRN per Hematology -Monitor CBC and transfuse as needed -Continue daily folate Impression: Pancytopenia; failure to thrive. Per Hem Onc, treated in / cleared but titers elevated during hospitalization. WBC down since admission, Hb stable, plts trending down since admission A/P CT and CTA - pelvic ascites, 7.3cm infrarenal AAA, calcified gallstones, moderate pleural effusions, cirrhosis, CTA S/P thoracentesis, paracentesis Transfusion history: 8 total U pRBC (most recently 2 U pRBC given 10/17), 1 U FFP, 1 U platelets transfused (4) Rash and nonspecific skin eruption ICD Codes: R21 - Rash and other nonspecific skin eruption Status: Acute Plan: petechiae vs contact dermatitis vs drug reaction; Improving significantly -Careful with Benadryl due to anticholinergic effects, but may use PRN -Per ID prednisone 40 mg daily, short course -Monitor for improvement or change Impression: Rash extending from patient's back, moderately in left axilla, mildly on left chest. Noted on 10/18. Suspect petechiae versus dermatitis (5) Delirium ICD Codes: R41.0 - Disorientation, unspecified Status: Resolved Plan: Ammonia wnl. Possible CO2 narcosis, no delirium today. -Continue O2 supplementation -Dronabinol 2.5mg BID -Psychiatry consulted -Suspect delirium secondary to general medical condition -Consider initiating Haldol BID with titration to TID if needed; additional PRN Haldol for acute agitation; EKG if needed to assess QTC -Frequent reorientation/mobilization -Aggressive management of retention or constipation -Sitter preferred over restraints Impression: Worsening mental status per nursing staff with increased confusion. Patient somewhat disoriented on exam; no focal neurologic deficits. PMH alcholism, liver disease, COPD (6) AAA (abdominal aortic aneurysm) ICD Codes: I71.4 - Abdominal aortic aneurysm, without rupture Plan: CT abd/pelvis w/o contrast done 09/30 5cm infrarenal abdominal aortic aneurysm Aorta CTA 7.3 cm infrarenal AAA with laminated wall, contained rupture which may be chronic and possible associated aortic wall inflammation indicating aortitis Vascular surgery consulted, appreciate recs [facility] confirms that no intervention at this time No intervention for AAA until infection cleared -Continue to follow at this time -Add metoprolol tartrate 12.5mg BID for tachycardia (7) GI bleed ICD Codes: K92.2 - Gastrointestinal hemorrhage, unspecified Status: Resolved Plan: GI consulted for mesenteric stranding and ascites, appreciate recommendations -Protonix 40mg IV BID -Supportive care -Sign off; consult as needed Avoid NSAIDs and anticoagulation EGD in 2 months Colonoscopy in 2 years History: Hb of 6.1 upon admission,1 month hx of black tarry stools, chronic aspirin use Hemoccult performed by RN in ED on 09/28- positive EGD/colonoscopy demonstrated hiatal hernia, gastric ulcer, erosive gastritis and colon polyp Duo/stomach biopsy- Stomach, reactive/chemical gastropathy with intestinal metaplasia. Colon, sigmoid, adenomatous polyp HCV quant, less than 15 IUs/ ml, less than 1.18 log IUs/mlAlpha-feto protein wnl Elevated ferritin levels due to underlying cirrhosis most likely AMSA, AMA negative A1AT 148 Hemochromatosis workup negative Transfusion history: 8 total U pRBC (most recently 2 U pRBC given 10/17), 1 U FFP, 1 U platelets transfused (8) Hematuria ICD Codes: R31.9 - Hematuria, unspecified Status: Resolved Plan: -UA 09/30 moderate occult blood, unlikely traumatic, patient has condom catheter -PSA wnl 0.15 -Renal US 10/04 demonstrated small nonobstructing 3mm calyceal calculus in the mid left kidney. 1.4 cm cyst in the inferior pole of the right kidney. -Urology consulted, recs appreciated Urologic impression: gross hematuria (now resolved) of indeterminate etiology; abnormal coagulation profile and thrombocytopenia likely contributing to the hematuria * manage conservatively for now * office follow up after hospital discharge when overall medical condition improved for cystoscopic evaluation [phone] * will be available as needed during present hospitalization (9) Hepatitis C ICD Codes: B19.20 - Unspecified viral hepatitis C without hepatic coma Status: Acute Plan: -paracentesis 10/21/17 -Continue to monitor LFT's Impression: Patient reports history of Hep C. Patient reports being treated in the s. LFTs wnl. alpha fetoprotein wnl HCV quant, less than 15 IUs/ml, less than 1.18 log IUs/ml A/P CT with moderate pelvic ascites, calcified gallstones. Abdominal US- cirrhotic appearing liver; ascites in upper abdomen. Gallstones and thickened gallbladder wall. Splenomegaly; assumed secondary to portal hypertension/cirrhosis (10) Abnormal chest x-ray ICD Codes: R93.8 - Abnormal findings on diagnostic imaging of other specified body structures Plan: Impression: Heavy smoker. Mass 2.51 x 3.86 found on CXR. Small free- flowing right pleural effusion at the base. CT revealed dominant opacity seen on recent CXR represents loculated pleural effusion in the superior major fissure. Small b/l pleural effusions, mild consolidative infiltrates in the right lower lung, and right upper abdominal ascites. Calcified gallstones. S/p thoracentesis 10/01/2017- pleural fluid negative for malignancy (11) Decreased appetite ICD Codes: R63.0 - Anorexia Status: Acute Plan: Eating better, ate dinner on 10/21/17 -Will attempt to initiate tube feedings if continued failure to eat -Continue to monitor intake -Psychiatry consulted -Hold Remeron -Marinol restarted -Prozac 20mg daily Impression: Lack of oral intake during hospitalization in association with flat affect. Suspect possible depression as etiology. Patient agreeable to tube feedings (12) RALF (acute kidney injury) ICD Codes: N17.9 - Acute kidney failure, unspecified Status: Resolved Plan: -Resolved -Continue to monitor Impression: RALF secondary to dehydration BUN 28 and Cr 0.53 upon admission (13) Sacral wound ICD Codes: S31.000A - Unspecified open wound of lower back and pelvis without penetration into retroperitoneum, initial encounter Plan: Unstageable sacral wound, 3cm x 6cm Wound care consulted, recommendations appreciated 1) Cleanse sacral wound with normal saline,pat dry. 2) Apply skin prep to gibran wound 3) Santyl josé thick to wound bed 4) Cover with Maxorb 2 cut to fit. 5) Cover with dry dressing (boarder gauze) 6) Change dressing Daily (14) Nutrition, metabolism, and development symptoms ICD Codes: R63.8 - Other symptoms and signs concerning food and fluid intake Plan: Fluids: PO due to fluid overload Diet: Lack of PO intake; Regular Basic diet Electrolytes: monitor and replace as needed Other: Case management consulted GI ppx: Protonix 40mg IV q12h DVT ppx: SCDs See the residents documentation for details. I saw and evaluated the patient regarding the roland portions of this evaluation and agree with the residents findings and plans as written. Parts of this note were created using [employer] voice recognition software program. While efforts were made to correct any mistakes made by this software, some mistakes, errors, and omissions may remain in the final note that were not caught when the note was originally created. Plan of care was discussed and agreed upon with the patient as specifically documented in the above note. An opportunity to ask questions with explanation was provided. Patient voiced understanding on all information reviewed and discussed. (Akshat Chen MD) Problem Qualifiers (1) GI bleed: Qualified Codes: K92.2 - Gastrointestinal hemorrhage, unspecified (2) Sacral wound: Qualified Codes: S31.000D - Unspecified open wound of lower back and pelvis without penetration into retroperitoneum, subsequent encounter John Gotti MD, R2 Oct 24, 2017 13:49 Akshat Chen MD Oct 25, 2017 10:09
[2017-10-24] MEDS: ERTAPENEM INJ 1,000 MG in SODIUM CHLORIDE 0.9% INJ 100 ML IV SCH (15:53)
--- NOTE | 2017-10-24 16:54 | HHI.IDPN ---
Subjective Subjective Remarks Denies pruritis cont to have diarrhea afebrile BP low Antibiotics Ertapenem Lines PIV Past Medical History Hep C Allergies: Coded Allergies: No Known Allergies (Unverified , 09/28/17) Objective . Vital Signs Date Time Temp Pulse Resp B/P (MAP) Pulse Ox O2 Delivery O2 Flow Rate FiO2 10/24/17 16:00 95.7 89 18 99/68 (78) 98 10/24/17 16:00 98 3.00 10/24/17 14:20 96 Nasal Cannula 3.00 10/24/17 12:00 97.2 70 16 85/52 (63) 94 10/24/17 12:00 96 3.00 10/24/17 10:00 84 10/24/17 08:51 100 Nasal Cannula 3.00 10/24/17 08:00 98 3.00 10/24/17 08:00 96.6 79 14 91/59 (70) 98 10/24/17 08:00 79 10/24/17 06:00 79 10/24/17 04:00 82 10/24/17 04:00 98 3.00 10/24/17 04:00 98.5 82 30 100/56 (71) 98 10/24/17 02:00 84 10/24/17 00:00 98.7 82 16 101/58 (72) 99 10/24/17 00:00 82 10/24/17 00:00 98 3.00 10/23/17 22:00 80 10/23/17 20:00 100 4.00 10/23/17 20:00 74 10/23/17 20:00 98.6 74 14 102/62 (75) 100 10/23/17 19:48 99 Nasal Cannula 3.00 10/23/17 18:00 75 . Laboratory Tests Test 10/23/17 07:34 10/24/17 04:22 White Blood Count 4.0 TH/MM3 3.1 TH/MM3 Red Blood Count 3.00 MIL/MM3 3.03 MIL/MM3 Hemoglobin 9.5 GM/DL 9.3 GM/DL Hematocrit 28.1 % 28.2 % Mean Corpuscular Volume 93.8 FL 93.1 FL Mean Corpuscular Hemoglobin 31.6 PG 30.8 PG Mean Corpuscular Hemoglobin Concent 33.7 % 33.1 % Red Cell Distribution Width 17.8 % 17.5 % Platelet Count 34 TH/MM3 40 TH/MM3 Mean Platelet Volume 7.9 FL 8.0 FL Neutrophils (%) (Auto) 64.1 % 59.6 % Lymphocytes (%) (Auto) 27.0 % 31.5 % Monocytes (%) (Auto) 6.2 % 6.6 % Eosinophils (%) (Auto) 2.4 % 2.0 % Basophils (%) (Auto) 0.3 % 0.3 % Neutrophils # (Auto) 2.6 TH/MM3 1.8 TH/MM3 Lymphocytes # (Auto) 1.1 TH/MM3 1.0 TH/MM3 Monocytes # (Auto) 0.3 TH/MM3 0.2 TH/MM3 Eosinophils # (Auto) 0.1 TH/MM3 0.1 TH/MM3 Basophils # (Auto) 0.0 TH/MM3 0.0 TH/MM3 CBC Comment AUTO DIFF AUTO DIFF Differential Comment AUTO DIFF CONFIRMED AUTO DIFF CONFIRMED Platelet Estimate LOW LOW Platelet Morphology Comment NORMAL NORMAL Ovalocytes 1+ Laboratory Tests Test 10/23/17 07:34 10/24/17 04:22 Blood Urea Nitrogen 18 MG/DL 18 MG/DL Creatinine 0.45 MG/DL 0.37 MG/DL Random Glucose 81 MG/DL 79 MG/DL Calcium Level 8.0 MG/DL 7.8 MG/DL Sodium Level 141 MEQ/L 143 MEQ/L Potassium Level 3.5 MEQ/L 4.1 MEQ/L Chloride Level 104 MEQ/L 103 MEQ/L Carbon Dioxide Level 32.1 MEQ/L 36.4 MEQ/L Anion Gap 5 MEQ/L 4 MEQ/L Estimat Glomerular Filtration Rate 187 ML/MIN 235 ML/MIN Microbiology Date/Time Source Procedure Growth Status 10/22/17 05:26 Stool Stool - Final NO ENTERIC PATHOGENS DETECTED BY PCR... Complete 10/22/17 05:26 Stool Stool Rotavirus Antigen - Final NEGATIVE - ROTAVIRUS ANTIGEN IS ABSEN... Complete Imaging Last Impressions Chest X-Ray 10/23/17 0600 Signed Impressions: Service Date/Time: October 03:25 - CONCLUSION: Stable bilateral pleural effusions and predominantly basilar infiltrates. David Cordova Jr., MD Cyst Biopsy Asp-Paracentesis US 10/21/17 0000 Signed Impressions: Service Date/Time: Saturday, October 21, 2017 10:26 - CONCLUSION: Uncomplicated ultrasound guided paracentesis. Enrrique Mcclellan MD Abdomen Ultrasound 10/19/17 0000 Signed Impressions: Service Date/Time: Thursday, October 19, 2017 08:28 - CONCLUSION: 1. Cirrhotic appearing liver. There is ascites seen in the upper abdomen. 2. Gallstones and a thickened gallbladder wall. This can be correlated with any signs of cholecystitis. Gallbladder wall thickening can be seen with hepatic disease. 3. 5.4 cm abdominal aortic aneurysm. 4. Mild to moderate dilatation of the left collecting system. 5. Splenomegaly. This may be secondary to portal hypertension and the patient's cirrhosis. Nicko Camacho MD Chest Ultrasound 10/17/17 0000 Signed Impressions: Service Date/Time: Tuesday, October 17, 2017 22:23 - CONCLUSION: Moderate to large pleural effusion. Patient was marked for thoracentesis. Edilson Abreu MD CT Angiography 10/16/17 0000 Signed Impressions: Service Date/Time: September 14:10 - CONCLUSION: 1. No evidence of pulmonary embolism 2. Moderate to large left-sided pleural effusion with compressive atelectasis of the left lower lung 3. Small right-sided pleural effusion with atelectasis in the right lung base. 4. Ascites in the upper abdomen. Justo Florian MD Renal Ultrasound 10/04/17 0000 Signed Impressions: Service Date/Time: Wednesday, October 04, 2017 10:29 - CONCLUSION: 1. Small nonobstructing 3 mm calyceal calculus in the mid left kidney. 2. 1.4 cm cyst in the inferior pole of the right kidney. 3. Small amount of ascites. Rohan Leigh MD Aorta CTA 10/01/17 1556 Signed Impressions: Service Date/Time: Sunday, October 01, 2017 17:11 - CONCLUSION: 1. 7.3 cm infrarenal abdominal aortic aneurysm with laminated wall as described above. Findings suggest a contained rupture which may be chronic and possible associated aortic wall inflammation indicating aortitis. 2. Chronic liver disease characteristic of cirrhosis. 3. Splenomegaly 4. Cholelithiasis 5. Moderate ascites 6. No evidence of portal vein thrombosis or Budd-Chiari syndrome. 7. COPD with bibasilar airspace disease and parapneumonic effusions. 1. Herve Berumen MD Thoracentesis Ultrasound 10/01/17 0000 Signed Impressions: Service Date/Time: Sunday, October 01, 2017 11:27 - CONCLUSION: Uncomplicated ultrasound guided thoracentesis. Marc Alfredo MD Abdomen/Pelvis CT 09/30/17 0000 Signed Impressions: Service Date/Time: Sunday, October 01, 2017 02:21 - CONCLUSION: 1. 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 2. Moderate pleural effusions and moderate amount of abdominal pelvic ascites. 3. 2 calcified gallstones. David Blunt MD Chest CT 09/28/17 0000 Signed Impressions: Service Date/Time: Friday, September 29, 2017 01:23 - CONCLUSION: 1. The dominant opacity seen on recent chest x-ray represents loculated pleural effusion in the superior major fissure. 2. Small bilateral pleural effusions, mild consolidative infiltrates in the right lower lung, and right upper abdominal ascites. 3. Calcified gallstones. David Blunt MD Physical Exam GENERAL: Thin male, awake and alert, NAD SKIN: Warm and moist. Has non blanching erythematous petechial rash, most prominent in his trunk and some in UE and LE, none in palms or soles, none in face. Trunk with faint pink macular rash EYES: Pupils equal and round and reactive. Extraocular motions intact. No scleral icterus. No injection or drainage. Mucosae is clear ENT: Nose without bleeding or purulent drainage. Moist mucosa, no oral lesions NECK: Supple and not tender CARDIOVASCULAR: Regular rate and rhythm without murmurs RESPIRATORY/CHEST: Decreased breath sounds bilaterally at bases. GASTROINTESTINAL: Abdomen soft, non-tender, mildly distended. No guarding. Bowel sounds present. MUSCULOSKELETAL: Extremities without clubbing, cyanosis. Mild pedal edema. No calf tenderness. NEUROLOGICAL: Awake and alert. Motor and sensory grossly within normal limits. Follows commands. clear speech. Moves all extremities. 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 plt disfunction: pt is trombiocytopenic , rash currently most prominent in BLE where he has ICDs, non pruritic, non raised, non blanchible PLAN: Continue Ertapenem, will not change @ this point - initial plan is to give Abx until nov 25 Follow rash fu CBC Marleni Giraldo MD Oct 24, 2017 16:54
--- NOTE | 2017-10-24 19:34 | HHI.PR ---
Subjective Remarks Now on O2 4 L . Taking little Orally. Less edema Went for Paracentesis and had 4 L drained.Better now. Objective Vital Signs Date Time Temp Pulse Resp B/P (MAP) Pulse Ox O2 Delivery O2 Flow Rate FiO2 10/24/17 17:55 86 17 102/70 (81) 10/24/17 17:33 98 Nasal Cannula 3.00 10/24/17 16:00 95.7 89 18 99/68 (78) 98 10/24/17 16:00 98 3.00 10/24/17 14:20 96 Nasal Cannula 3.00 10/24/17 12:00 97.2 70 16 85/52 (63) 94 10/24/17 12:00 96 3.00 10/24/17 10:00 84 10/24/17 08:51 100 Nasal Cannula 3.00 10/24/17 08:00 98 3.00 10/24/17 08:00 96.6 79 14 91/59 (70) 98 10/24/17 08:00 79 10/24/17 06:00 79 10/24/17 04:00 82 10/24/17 04:00 98 3.00 10/24/17 04:00 98.5 82 30 100/56 (71) 98 10/24/17 02:00 84 10/24/17 00:00 98.7 82 16 101/58 (72) 99 10/24/17 00:00 82 10/24/17 00:00 98 3.00 10/23/17 22:00 80 10/23/17 20:00 100 4.00 10/23/17 20:00 74 10/23/17 20:00 98.6 74 14 102/62 (75) 100 10/23/17 19:48 99 Nasal Cannula 3.00 I/O 10/23/17 10/23/17 10/23/17 10/24/17 10/24/17 10/24/17 07:00 15:00 23:00 07:00 15:00 23:00 Intake Total 1424 ml 100 ml 1625 ml 300 ml 1350 ml Output Total 1250 ml 1050 ml 550 ml Balance 1424 ml 100 ml 375 ml -750 ml 800 ml Intake Oral 400 ml 425 ml 200 ml 150 ml IV Total 1024 ml 100 ml 1200 ml 100 ml 1200 ml Output Urine Total 1250 ml 1050 ml 550 ml # Bowel Movements 1 1 Result Diagram: 10/24/1742110/24/17421 Objective Remarks GENERAL: This is a moderately overweight elderly white male who is alert . HEENT: Head normocephalic. Pupils are reactive. Sclerae anicteric. Throat was dry. He has no inflammation. NECK: Supple. No bruits or thyroid enlargement. CHEST: Distant breath sounds over the lower chest with occasional bibasilar crackles. H S Regular ,No Murmur. No S3 gallop. ABDOMEN: Soft and protuberant. There is some tenderness in the upper abdomen The bowel sounds are active.No Mass. EXTREMITIES:1 + Edema with decreased peripheral pulses. Reflexes are 1+ with no gross motor deficits. SKIN: No lesions observed. Assessment and Plan Assessment and Plan IMPRESSION 1. Loculated left pleural effusion. Resolving 2. History of hepatitis C. Ascites 3. GI bleeding with anemia and gastric ulceration. 4. Atelectasis both bases with probable resolving pneumonia 5. COPD with emphysema and chronic bronchitis 6. Sepsis resolved 7. Pancytopenia. 8. Abdominal aortic aneurysm. PLan : 1. Cont Aldactone 25 mg bid 2. IS at bedside q3h 3. Cont Lasix 20 mg daily. 4. Wean O2 and Switch to N/C 3 L 5. Ensure supplements tid. 6. Continue antibiotics per ID 7. PT evaluation Yasemin Redding MD Oct 24, 2017 19:34
[2017-10-25] VITALS (7 sets, daily range): BP systolic 95–103; BP diastolic 58–65; PULSE 84–99; RESP 15–18; TEMP 96.7–98.6; O2SAT 92–100
[2017-10-25] MEDS: metroNIDAZOLE 500 MG INJ 100 ML IV SCH ×3 (01:38→17:03)
[2017-10-25] MEDS: CHLORHEXIDINE GLUCONATE 2 % 1 PACK (2 CLOTHS)(taper/protocol) TOPICAL SCH (01:38)
[2017-10-25] MEDS: PANTOPRAZOLE SODIUM 40 MG VIAL IV PUSH SCH ×2 (01:38→12:56)
[2017-10-25] MEDS: SODIUM CHLOR 0.9% 1000 ML INJ 1,000 ML IV SCH ×2 (01:47→17:03)
[2017-10-25] MEDS: SODIUM CHLORIDE 0.9% FLUSH 10 ML FLUSH IV FLUSH SCH ×2 (09:00→20:31)
[2017-10-25] MEDS: POTASSIUM CHLORIDE 20 MEQ CONTROLLED RELEASE TAB PO SCH ×3 (09:00→20:28)
[2017-10-25] MEDS: BUDESONIDE-FORMOTEROL 160/4.5 MCG INHALER INH SCH ×2 (09:13→20:32)
[2017-10-25] MEDS: FUROSEMIDE 20 MG TAB PO SCH (09:14)
[2017-10-25] MEDS: SPIRONOLACTONE 25 MG TAB PO SCH ×2 (09:14→16:46)
[2017-10-25] MEDS: FOLIC ACID 1 MG TAB PO SCH (09:14)
[2017-10-25] MEDS: FLUoxetine HCL 20 MG CAP PO SCH (09:15)
[2017-10-25] MEDS: METOPROLOL TARTRATE 25 MG TAB PO SCH ×2 (09:15→20:31)
[2017-10-25] MEDS: NYSTATIN 100,000 U/GM PWD 15 GM BTL TOPICAL SCH ×2 (09:15→20:33)
[2017-10-25] MEDS: COLLAGENASE OINT 30 GM TUBE TOPICAL SCH (09:17)
--- NOTE | 2017-10-25 10:26 | HHI.FPPN ---
Subjective Remarks Patient seen and examined today. States he's feeling tired. Reports he did not eat dinner last night because his arms were cold. No pain, numbness, tingling in arms. Patient denies any nausea, vomiting, fever, chills, abdominal pain, chest pain, shortness of breath. No other complaints today. (Edilson Shoemaker MD R1) Objective Vitals Vital Signs Date Time Temp Pulse Resp B/P (MAP) Pulse Ox O2 Delivery O2 Flow Rate FiO2 10/25/17 09:25 Nasal Cannula 3.00 10/25/17 08:00 98.6 94 15 101/59 (73) 94 10/25/17 04:00 96.7 93 18 100/58 (72) 93 10/25/17 00:00 97.2 99 18 102/65 (77) 94 10/25/17 00:00 92 10/24/17 20:00 Nasal Cannula 3.00 10/24/17 20:00 96.4 91 18 104/69 (81) 92 10/24/17 17:55 86 17 102/70 (81) 10/24/17 17:33 98 Nasal Cannula 3.00 10/24/17 16:00 95.7 89 18 99/68 (78) 98 10/24/17 16:00 98 3.00 10/24/17 14:20 96 Nasal Cannula 3.00 10/24/17 12:00 97.2 70 16 85/52 (63) 94 10/24/17 12:00 96 3.00 I/O 10/24/17 10/24/17 10/24/17 10/25/17 10/25/17 10/25/17 07:00 15:00 23:00 07:00 15:00 23:00 Intake Total 300 ml 1350 ml 1078 ml Output Total 1050 ml 550 ml 500 ml Balance -750 ml 800 ml 578 ml Intake Oral 200 ml 150 ml 360 ml IV Total 100 ml 1200 ml 718 ml Output Urine Total 1050 ml 550 ml 500 ml # Bowel Movements 1 0 (Edilson Shoemaker MD R1) Result Diagram: 10/24/172 10/24/172 Objective Remarks CONSTITUTIONAL/GEN: Cachectic male, lying in bed PSYCH/NEURO: AOx3. Flat affect. No CN defects. No peripheral motor/sensory defects. SKIN: Maculopapular rash extending from mid back along the left axilla and torso , spread to legs, continues to improve, almost fully improved LUNGS: Decreased breath sounds bilaterally; normal rate. Patient on nasal cannula MSK: Nontender and non-throbbing edema along right medial elbow extending approximately 3-4 inches proximally CARDIOVASCULAR: Regular rhythm; mild tachycardia. No LE edema GI/ABD: soft, normal BS; no pain to palpation : catheter in place; Dark urine in schaefer bag (Edilson Shoemaker MD R1) A/P Assessment and Plan 66 yr old M Hep C, hx of heavy smoking (2ppd for 61 yrs), and chronic aspirin use presented to the ED with anemia and black tarry stools secondary to suspected GI bleed. Patient transferred to ICU 09/30 for ESBL E.coli sepsis. Patient hemodynamically stable for transfer to med/surg 10/03. Patient confused/ delirious with hypercarbia 10/19; transferred to ICU for BIPAP. Discharge Planning Case Management to assist with SNF placement, accepted to [facility] Pending workup and management of multiple chronic issues, currently stabilizing , possible discharge within the next few days (Edilson Shoemaker MD R1) Problem List: (1) Hypoxia ICD Codes: R09.02 - Hypoxemia Status: Acute Plan: improved mental status. On nasal cannula now -Transferred to med/surg floor -Continue to monitor -Pulmonology consulted, follow-up recommendations * s/p thoracentesis 10/18 * Incentive spirometry * DuoNeb 4 times a day, when necessary * Aldactone 25mg BID * Lasix 20mg IV daily * O2 to keep sat>92 * Lasix 20 mg daily Impression: Patient has been on substantial O2 requirement via NC since admission; recently hypoxia 10/15 with O2 saturations in upper 70's. Associated with anemia. Decreased breath sounds on exam; no wheezing. No symptoms appreciated by patient, no tachypnea. History of tobacco abuse. CT revealed dominant opacity seen on recent CXR represents loculated pleural effusion in the superior major fissure. Small b/l pleural effusions, mild consolidative infiltrates in the right lower lung, and right upper abdominal ascites. Calcified gallstones. Echo on 10/01 shows EF of 60-65%, normal LV systolic function S/p thoracentesis 10/01/2017- pleural fluid negative for malignancy CXR (10/15): no change; small to moderate left effusion (no interval change from 10/12 (pulmonary vascular congestion, L sided effusion)) ABG (10/15): pH 7.42, pCO2 57, pO2 55, O2 sat 85% ABG (10/17): pH 7.44, PCO2 56, PO2 71 CTA (10/16/2017): without evidence of PE, left-sided pleural effusion, ascites noted s/p transfusion (8 total U pRBC; most recently 2 U 10/17/2017) s/p L thoracentesis 10/18- 1300ml serosanguineous fluid aspirated Venous blood gas (10/09) -pH 7.4, pCO2 60, pO2 24, HCO3 37 (2) Bacteremia ICD Codes: R78.81 - Bacteremia Status: Acute Plan: ID consulted, appreciate recommendations * E.coli ESBL sepsis, source is likely GI, questionable SBP * Continue Ertapenem 1000 mg IV q24h (10/02) x 6-8 weeks per ID History: Transferred to med/surg floor 10/03; previously transferred to ICU secondary to ESBL sepsis. Patient met sepsis criteria 09/29 due to tachycardic at 95-113 and hypotension 86/53 Lactic acid 1.4 09/29, Repeat lactic acid 1.5 s/p 500cc bolus of NS, MIVF 140mls/hr 09/29 * CT abd/pelvis w/o contrast done 09/30 revealed moderate size left pleural effusion, ascites, 5cm infrarenal abdominal aortic aneurysm and mesenteric stranding. * CTA 10/01 7.3 cm AAA, contained rupture, cirrhosis, splenomegaly, cholelithiasis, moderate ascites, no evident of protal vein thrombosis or Budd- Chiari syndrome, COPD with bibasilar airspace disease and parapneumonic effusions * 2-D echo - 60-65% EF * Left pleural effusion- thoracentesis with removal of 750 cc of dark yellow fluid. Fluid appeared transudative. * Ascites- paracentesis with removal of 1100 cc of yellow fluids. This appeared due to portal hypertension. * Possibility of aortoenteric fistula Cultures: Blood- Cultures 10/10 NGTD Staph hominis 10/06 (pansensitive) ESBL E Coli 09/29 (resistant, to Ampicillin, Unasyn, Cefazolin, Cefepime, Cefuroxime, Levofloxacin) Antibiotic history: Vancomycin (restarted 10/07-10/11) Vancomycin 1,250mg IV q12h (09/29-10/01) Zosyn 4.5 gm IV q6h (started 09/30-09/22) Azithromycin 250mg PO daily (10/01-10/04) (3) Elbow swelling ICD Codes: M25.429 - Effusion, unspecified elbow Plan: Nontender and non-throbbing edema along right medial elbow extending approximately 3-4 inches proximally initially observed 10/25/17. -Follow up upper extremity ultrasound (4) Pancytopenia ICD Codes: D61.818 - Other pancytopenia Plan: Labile WBC, stable Hgb Hem/Onc consulted, appreciate recs -Neupogen PRN per Hematology -Monitor CBC and transfuse as needed -Continue daily folate Impression: Pancytopenia; failure to thrive. Per Hem Onc, treated in / cleared but titers elevated during hospitalization. WBC down since admission, Hb stable, plts trending down since admission A/P CT and CTA - pelvic ascites, 7.3cm infrarenal AAA, calcified gallstones, moderate pleural effusions, cirrhosis, CTA S/P thoracentesis, paracentesis Transfusion history: 8 total U pRBC (most recently 2 U pRBC given 10/17), 1 U FFP, 1 U platelets transfused (5) Rash and nonspecific skin eruption ICD Codes: R21 - Rash and other nonspecific skin eruption Status: Acute Plan: petechiae vs contact dermatitis vs drug reaction; Improving significantly -Careful with Benadryl due to anticholinergic effects, but may use PRN -Per ID prednisone 40 mg daily, short course -Monitor for improvement or change Impression: Rash extending from patient's back, moderately in left axilla, mildly on left chest. Noted on 10/18. Suspect petechiae versus dermatitis (6) Delirium ICD Codes: R41.0 - Disorientation, unspecified Status: Resolved Plan: Ammonia wnl. Possible CO2 narcosis, no delirium today. -Continue O2 supplementation -Dronabinol 2.5mg BID was initially held but is currently being given and does not seem to contribute to delirium -Psychiatry consulted -Suspect delirium secondary to general medical condition -Consider initiating Haldol BID with titration to TID if needed; additional PRN Haldol for acute agitation; EKG if needed to assess QTC -Frequent reorientation/mobilization -Aggressive management of retention or constipation -Sitter preferred over restraints Impression: Worsening mental status per nursing staff with increased confusion. Patient somewhat disoriented on exam; no focal neurologic deficits. PMH alcholism, liver disease, COPD (7) AAA (abdominal aortic aneurysm) ICD Codes: I71.4 - Abdominal aortic aneurysm, without rupture Plan: CT abd/pelvis w/o contrast done 09/30 5cm infrarenal abdominal aortic aneurysm Aorta CTA 7.3 cm infrarenal AAA with laminated wall, contained rupture which may be chronic and possible associated aortic wall inflammation indicating aortitis Vascular surgery consulted, appreciate recs [facility] confirms that no intervention at this time No intervention for AAA until infection cleared -Continue to follow at this time -Add metoprolol tartrate 12.5mg BID for tachycardia (8) GI bleed ICD Codes: K92.2 - Gastrointestinal hemorrhage, unspecified Status: Resolved Plan: GI consulted for mesenteric stranding and ascites, appreciate recommendations -Protonix 40mg IV BID -Supportive care -Sign off; consult as needed Avoid NSAIDs and anticoagulation EGD in 2 months Colonoscopy in 2 years History: Hb of 6.1 upon admission,1 month hx of black tarry stools, chronic aspirin use Hemoccult performed by RN in ED on 09/28- positive EGD/colonoscopy demonstrated hiatal hernia, gastric ulcer, erosive gastritis and colon polyp Duo/stomach biopsy- Stomach, reactive/chemical gastropathy with intestinal metaplasia. Colon, sigmoid, adenomatous polyp HCV quant, less than 15 IUs/ ml, less than 1.18 log IUs/mlAlpha-feto protein wnl Elevated ferritin levels due to underlying cirrhosis most likely AMSA, AMA negative A1AT 148 Hemochromatosis workup negative Transfusion history: 8 total U pRBC (most recently 2 U pRBC given 10/17), 1 U FFP, 1 U platelets transfused (9) Hematuria ICD Codes: R31.9 - Hematuria, unspecified Status: Resolved Plan: -UA 09/30 moderate occult blood, unlikely traumatic, patient has condom catheter -PSA wnl 0.15 -Renal US 10/04 demonstrated small nonobstructing 3mm calyceal calculus in the mid left kidney. 1.4 cm cyst in the inferior pole of the right kidney. -Urology consulted, recs appreciated Urologic impression: gross hematuria (now resolved) of indeterminate etiology; abnormal coagulation profile and thrombocytopenia likely contributing to the hematuria * manage conservatively for now * office follow up after hospital discharge when overall medical condition improved for cystoscopic evaluation [phone] * will be available as needed during present hospitalization (10) Hepatitis C ICD Codes: B19.20 - Unspecified viral hepatitis C without hepatic coma Status: Acute Plan: -paracentesis 10/21/17 -Continue to monitor LFT's Impression: Patient reports history of Hep C. Patient reports being treated in the s. LFTs wnl. alpha fetoprotein wnl HCV quant, less than 15 IUs/ml, less than 1.18 log IUs/ml A/P CT with moderate pelvic ascites, calcified gallstones. Abdominal US- cirrhotic appearing liver; ascites in upper abdomen. Gallstones and thickened gallbladder wall. Splenomegaly; assumed secondary to portal hypertension/cirrhosis (11) Abnormal chest x-ray ICD Codes: R93.8 - Abnormal findings on diagnostic imaging of other specified body structures Plan: Impression: Heavy smoker. Mass 2.51 x 3.86 found on CXR. Small free- flowing right pleural effusion at the base. CT revealed dominant opacity seen on recent CXR represents loculated pleural effusion in the superior major fissure. Small b/l pleural effusions, mild consolidative infiltrates in the right lower lung, and right upper abdominal ascites. Calcified gallstones. S/p thoracentesis 10/01/2017- pleural fluid negative for malignancy (12) Decreased appetite ICD Codes: R63.0 - Anorexia Status: Acute Plan: Eating better, ate dinner on 10/21/17 -Will attempt to initiate tube feedings if continued failure to eat -Continue to monitor intake -Psychiatry consulted -Hold Remeron -Marinol restarted -Prozac 20mg daily Impression: Lack of oral intake during hospitalization in association with flat affect. Suspect possible depression as etiology. Patient agreeable to tube feedings (13) RALF (acute kidney injury) ICD Codes: N17.9 - Acute kidney failure, unspecified Status: Resolved Plan: -Resolved -Continue to monitor Impression: RALF secondary to dehydration BUN 28 and Cr 0.53 upon admission (14) Sacral wound ICD Codes: S31.000A - Unspecified open wound of lower back and pelvis without penetration into retroperitoneum, initial encounter Plan: Unstageable sacral wound, 3cm x 6cm Wound care consulted, recommendations appreciated 1) Cleanse sacral wound with normal saline,pat dry. 2) Apply skin prep to gibran wound 3) Santyl josé thick to wound bed 4) Cover with Maxorb 2 cut to fit. 5) Cover with dry dressing (boarder gauze) 6) Change dressing Daily (15) Nutrition, metabolism, and development symptoms ICD Codes: R63.8 - Other symptoms and signs concerning food and fluid intake Plan: Fluids: PO due to fluid overload Diet: Lack of PO intake; Regular Basic diet Electrolytes: monitor and replace as needed Other: Case management consulted GI ppx: Protonix 40mg IV q12h DVT ppx: SCDs See the residents documentation for details. I saw and evaluated the patient regarding the roland portions of this evaluation and agree with the residents findings and plans as written. Parts of this note were created using [employer] voice recognition software program. While efforts were made to correct any mistakes made by this software, some mistakes, errors, and omissions may remain in the final note that were not caught when the note was originally created. Plan of care was discussed and agreed upon with the patient as specifically documented in the above note. An opportunity to ask questions with explanation was provided. Patient voiced understanding on all information reviewed and discussed. (Edilson Shoemaker MD R1) Problem List: (1) Hypoxia ICD Codes: R09.02 - Hypoxemia Status: Acute Plan: improved mental status. On nasal cannula now -Transferred to med/surg floor -Continue to monitor -Pulmonology consulted, follow-up recommendations * s/p thoracentesis 10/18 * Incentive spirometry * DuoNeb 4 times a day, when necessary * Aldactone 25mg BID * Lasix 20mg IV daily * O2 to keep sat>92 * Lasix 20 mg daily Impression: Patient has been on substantial O2 requirement via NC since admission; recently hypoxia 10/15 with O2 saturations in upper 70's. Associated with anemia. Decreased breath sounds on exam; no wheezing. No symptoms appreciated by patient, no tachypnea. History of tobacco abuse. CT revealed dominant opacity seen on recent CXR represents loculated pleural effusion in the superior major fissure. Small b/l pleural effusions, mild consolidative infiltrates in the right lower lung, and right upper abdominal ascites. Calcified gallstones. Echo on 10/01 shows EF of 60-65%, normal LV systolic function S/p thoracentesis 10/01/2017- pleural fluid negative for malignancy CXR (10/15): no change; small to moderate left effusion (no interval change from 10/12 (pulmonary vascular congestion, L sided effusion)) ABG (10/15): pH 7.42, pCO2 57, pO2 55, O2 sat 85% ABG (10/17): pH 7.44, PCO2 56, PO2 71 CTA (10/16/2017): without evidence of PE, left-sided pleural effusion, ascites noted s/p transfusion (8 total U pRBC; most recently 2 U 10/17/2017) s/p L thoracentesis 10/18- 1300ml serosanguineous fluid aspirated Venous blood gas (10/09) -pH 7.4, pCO2 60, pO2 24, HCO3 37 (2) Bacteremia ICD Codes: R78.81 - Bacteremia Status: Acute Plan: ID consulted, appreciate recommendations * E.coli ESBL sepsis, source is likely GI, questionable SBP * Continue Ertapenem 1000 mg IV q24h (10/02) x 6-8 weeks per ID History: Transferred to med/surg floor 10/03; previously transferred to ICU secondary to ESBL sepsis. Patient met sepsis criteria 09/29 due to tachycardic at 95-113 and hypotension 86/53 Lactic acid 1.4 09/29, Repeat lactic acid 1.5 s/p 500cc bolus of NS, MIVF 140mls/hr 09/29 * CT abd/pelvis w/o contrast done 09/30 revealed moderate size left pleural effusion, ascites, 5cm infrarenal abdominal aortic aneurysm and mesenteric stranding. * CTA 10/01 7.3 cm AAA, contained rupture, cirrhosis, splenomegaly, cholelithiasis, moderate ascites, no evident of protal vein thrombosis or Budd- Chiari syndrome, COPD with bibasilar airspace disease and parapneumonic effusions * 2-D echo - 60-65% EF * Left pleural effusion- thoracentesis with removal of 750 cc of dark yellow fluid. Fluid appeared transudative. * Ascites- paracentesis with removal of 1100 cc of yellow fluids. This appeared due to portal hypertension. * Possibility of aortoenteric fistula Cultures: Blood- Cultures 10/10 NGTD Staph hominis 10/06 (pansensitive) ESBL E Coli 09/29 (resistant, to Ampicillin, Unasyn, Cefazolin, Cefepime, Cefuroxime, Levofloxacin) Antibiotic history: Vancomycin (restarted 10/07-10/11) Vancomycin 1,250mg IV q12h (09/29-10/01) Zosyn 4.5 gm IV q6h (started 09/30-09/22) Azithromycin 250mg PO daily (10/01-10/04) (3) Elbow swelling ICD Codes: M25.429 - Effusion, unspecified elbow Plan: Nontender and non-throbbing edema along right medial elbow extending approximately 3-4 inches proximally initially observed 10/25/17. -Follow up upper extremity ultrasound (4) Pancytopenia ICD Codes: D61.818 - Other pancytopenia Plan: Labile WBC, stable Hgb Hem/Onc consulted, appreciate recs -Neupogen PRN per Hematology -Monitor CBC and transfuse as needed -Continue daily folate Impression: Pancytopenia; failure to thrive. Per Hem Onc, treated in / cleared but titers elevated during hospitalization. WBC down since admission, Hb stable, plts trending down since admission A/P CT and CTA - pelvic ascites, 7.3cm infrarenal AAA, calcified gallstones, moderate pleural effusions, cirrhosis, CTA S/P thoracentesis, paracentesis Transfusion history: 8 total U pRBC (most recently 2 U pRBC given 10/17), 1 U FFP, 1 U platelets transfused (5) Rash and nonspecific skin eruption ICD Codes: R21 - Rash and other nonspecific skin eruption Status: Acute Plan: petechiae vs contact dermatitis vs drug reaction; Improving significantly -Careful with Benadryl due to anticholinergic effects, but may use PRN -Per ID prednisone 40 mg daily, short course -Monitor for improvement or change Impression: Rash extending from patient's back, moderately in left axilla, mildly on left chest. Noted on 10/18. Suspect petechiae versus dermatitis (6) Delirium ICD Codes: R41.0 - Disorientation, unspecified Status: Resolved Plan: Ammonia wnl. Possible CO2 narcosis, no delirium today. -Continue O2 supplementation -Dronabinol 2.5mg BID was initially held but is currently being given and does not seem to contribute to delirium -Psychiatry consulted -Suspect delirium secondary to general medical condition -Consider initiating Haldol BID with titration to TID if needed; additional PRN Haldol for acute agitation; EKG if needed to assess QTC -Frequent reorientation/mobilization -Aggressive management of retention or constipation -Sitter preferred over restraints Impression: Worsening mental status per nursing staff with increased confusion. Patient somewhat disoriented on exam; no focal neurologic deficits. PMH alcholism, liver disease, COPD (7) AAA (abdominal aortic aneurysm) ICD Codes: I71.4 - Abdominal aortic aneurysm, without rupture Plan: CT abd/pelvis w/o contrast done 09/30 5cm infrarenal abdominal aortic aneurysm Aorta CTA 7.3 cm infrarenal AAA with laminated wall, contained rupture which may be chronic and possible associated aortic wall inflammation indicating aortitis Vascular surgery consulted, appreciate recs [facility] confirms that no intervention at this time No intervention for AAA until infection cleared -Continue to follow at this time -Add metoprolol tartrate 12.5mg BID for tachycardia (8) GI bleed ICD Codes: K92.2 - Gastrointestinal hemorrhage, unspecified Status: Resolved Plan: GI consulted for mesenteric stranding and ascites, appreciate recommendations -Protonix 40mg IV BID -Supportive care -Sign off; consult as needed Avoid NSAIDs and anticoagulation EGD in 2 months Colonoscopy in 2 years History: Hb of 6.1 upon admission,1 month hx of black tarry stools, chronic aspirin use Hemoccult performed by RN in ED on 09/28- positive EGD/colonoscopy demonstrated hiatal hernia, gastric ulcer, erosive gastritis and colon polyp Duo/stomach biopsy- Stomach, reactive/chemical gastropathy with intestinal metaplasia. Colon, sigmoid, adenomatous polyp HCV quant, less than 15 IUs/ ml, less than 1.18 log IUs/mlAlpha-feto protein wnl Elevated ferritin levels due to underlying cirrhosis most likely AMSA, AMA negative A1AT 148 Hemochromatosis workup negative Transfusion history: 8 total U pRBC (most recently 2 U pRBC given 10/17), 1 U FFP, 1 U platelets transfused (9) Hematuria ICD Codes: R31.9 - Hematuria, unspecified Status: Resolved Plan: -UA 09/30 moderate occult blood, unlikely traumatic, patient has condom catheter -PSA wnl 0.15 -Renal US 10/04 demonstrated small nonobstructing 3mm calyceal calculus in the mid left kidney. 1.4 cm cyst in the inferior pole of the right kidney. -Urology consulted, recs appreciated Urologic impression: gross hematuria (now resolved) of indeterminate etiology; abnormal coagulation profile and thrombocytopenia likely contributing to the hematuria * manage conservatively for now * office follow up after hospital discharge when overall medical condition improved for cystoscopic evaluation [phone] * will be available as needed during present hospitalization (10) Hepatitis C ICD Codes: B19.20 - Unspecified viral hepatitis C without hepatic coma Status: Acute Plan: -paracentesis 10/21/17 -Continue to monitor LFT's Impression: Patient reports history of Hep C. Patient reports being treated in the s. LFTs wnl. alpha fetoprotein wnl HCV quant, less than 15 IUs/ml, less than 1.18 log IUs/ml A/P CT with moderate pelvic ascites, calcified gallstones. Abdominal US- cirrhotic appearing liver; ascites in upper abdomen. Gallstones and thickened gallbladder wall. Splenomegaly; assumed secondary to portal hypertension/cirrhosis (11) Abnormal chest x-ray ICD Codes: R93.8 - Abnormal findings on diagnostic imaging of other specified body structures Plan: Impression: Heavy smoker. Mass 2.51 x 3.86 found on CXR. Small free- flowing right pleural effusion at the base. CT revealed dominant opacity seen on recent CXR represents loculated pleural effusion in the superior major fissure. Small b/l pleural effusions, mild consolidative infiltrates in the right lower lung, and right upper abdominal ascites. Calcified gallstones. S/p thoracentesis 10/01/2017- pleural fluid negative for malignancy (12) Decreased appetite ICD Codes: R63.0 - Anorexia Status: Acute Plan: Eating better, ate dinner on 10/21/17 -Will attempt to initiate tube feedings if continued failure to eat -Continue to monitor intake -Psychiatry consulted -Hold Remeron -Marinol restarted -Prozac 20mg daily Impression: Lack of oral intake during hospitalization in association with flat affect. Suspect possible depression as etiology. Patient agreeable to tube feedings (13) RALF (acute kidney injury) ICD Codes: N17.9 - Acute kidney failure, unspecified Status: Resolved Plan: -Resolved -Continue to monitor Impression: RALF secondary to dehydration BUN 28 and Cr 0.53 upon admission (14) Sacral wound ICD Codes: S31.000A - Unspecified open wound of lower back and pelvis without penetration into retroperitoneum, initial encounter Plan: Unstageable sacral wound, 3cm x 6cm Wound care consulted, recommendations appreciated 1) Cleanse sacral wound with normal saline,pat dry. 2) Apply skin prep to gibran wound 3) Santyl josé thick to wound bed 4) Cover with Maxorb 2 cut to fit. 5) Cover with dry dressing (boarder gauze) 6) Change dressing Daily (15) Nutrition, metabolism, and development symptoms ICD Codes: R63.8 - Other symptoms and signs concerning food and fluid intake Plan: Fluids: PO due to fluid overload Diet: Lack of PO intake; Regular Basic diet Electrolytes: monitor and replace as needed Other: Case management consulted GI ppx: Protonix 40mg IV q12h DVT ppx: SCDs See the residents documentation for details. I saw and evaluated the patient regarding the roland portions of this evaluation and agree with the residents findings and plans as written. Parts of this note were created using [employer] voice recognition software program. While efforts were made to correct any mistakes made by this software, some mistakes, errors, and omissions may remain in the final note that were not caught when the note was originally created. Plan of care was discussed and agreed upon with the patient as specifically documented in the above note. An opportunity to ask questions with explanation was provided. Patient voiced understanding on all information reviewed and discussed. (Akshat Chen MD) Problem Qualifiers (1) Elbow swelling: Qualified Codes: M25.421 - Effusion, right elbow (2) GI bleed: Qualified Codes: K92.2 - Gastrointestinal hemorrhage, unspecified (3) Sacral wound: Qualified Codes: S31.000D - Unspecified open wound of lower back and pelvis without penetration into retroperitoneum, subsequent encounter Edilson Shoemaker MD R1 Oct 25, 2017 10:26 Akshat Chen MD Oct 26, 2017 10:25
--- NOTE | 2017-10-25 11:46 | RADRPT ---
EXAM DATE/TIME: 10/25/2017 09:51 [facility] COMPARISON: No previous studies available for comparison. INDICATIONS : Bilateral arm swelling. MEDICAL HISTORY : Hepatitis C. Methicillin-resistant Staphylococcus aureus. Dyspnea. SURGICAL HISTORY : Paracentesis. ENCOUNTER: Initial ACUITY: 3 days PAIN SCORE: 5/10 LOCATION: Bilateral arms. FINDINGS: RIGHT UPPER EXTREMITY: There is spontaneous flow documented in the brachial, basilic, cephalic, axillary, and subclavian vei ns. The vessels are compressible and augmentation response is documented. No filling defects are se en. The flow is phasic with respiration. Direction of flow in the jugular vein is caudal. LEFT UPPER EXTREMITY: Minimal thrombus is noted within the left cephalic vein near the IV site. There is spontaneous flow d ocumented in the brachial, basilic, axillary, and subclavian veins. The vessels are compressible and augmentation response is documented. No filling defects are seen. The flow is phasic with respirat ion. Direction of flow in the jugular vein is caudal. CONCLUSION: Minimal thrombus is noted within the left cephalic vein near the IV site. No deep charleen ous thrombosis is noted within the right upper extremity. Enrrique Mcclellan MD on October 25, 2017 at 11:42 Board Certified Radiologist. This report was verified electronically.
--- NOTE | 2017-10-25 11:48 | HHI.PR ---
Addendum to Inpatient Note Addendum Reason: Additional Documentation Additional Information Off Service note: Service note from 10/05: Mr. Friedman is a 66 yr old M Hep C, hx of heavy smoking (2ppd for 61 yrs), and chronic aspirin use initially admitted with anemia and black tarry stools secondary to suspected GI bleed. From [place], comes to [place] during the winter. GI consulted and following. EGD/colonoscopy demonstrated hiatal hernia, gastric ulcer, erosive gastritis and colon polyp. Duo/stomach biopsy revealed reactive/ chemical gastropathy with intestinal metaplasia. Colon, sigmoid, adenomatous polyp. Patient received several PRBCS transfusion. H/H now stable. Patient continuing IV protonix. Awaiting hemochromatosis work up. On 09/30 patient was transferred to ICU for ESBL E.coli sepsis. Critical care and ID consulted. Patient was placed on several antibiotics (see progress note for more abx history), only antibiotics patient is receiving now is ertapenem, which will need to be continued for 6-8 weeks. During ICU stay, thoracentesis was performed for removal of left pleural effusion as well as paracentesis performed for ascites. Fluid appeared transudative. This appeared to be due to portal hypertension. Patient also found to have 7.3 cm AAA on CTA. Vascular surgery consulted and following. No intervention for AAA until infection cleared. In addition, patient has pancytopenia due to cirrhosis and splenomegaly with further drop in the WBC and plt count due to recent sepsis. Hem/Onc consulted and following. Patient started on Neupogen. WBC improving. Will continue Neupogen until ANX greater than 2500 x 2 days or until it reaches 5000. Patient hemodynamically stable for transfer to med/surg 10/03. Discharge planning: unclear timetable. Patient will need infection cleared until stent placed for AAA. Case management to assist with SNF placement upon discharge. Update: Patient's respiratory status was initially unstable and it would have been unsafe to transfer him to a nursing facility. He oscillated between a high output cardiac failure and pulmonary congestion which required titration of his fluids. Respiratory status continued to decline, following a VBG it was recommended that the patient be placed on high flow nasal cannula. Place where high flow nasal cannula was available was the ICU. He was gradually weaned off the high flow nasal cannula and was returned to a [facility] floor. Over these past 3 weeks the patient has had decreased appetite. Was attempted to be improved with Remeron and Marinol, which potentially cause delirium in the patient. The Remeron and Marinol had been discontinued, the delirium improved, Marinol was reinstated and there have been no history of delirium since then. The patient now intermittently eats normal sized meals. There was a rash noted approximately one week ago which was seen by infectious disease, patient was placed on a short course of steroids, and has nearly fully improved. Right-sided medial elbow swelling was noted 10/25/17, ultrasound was ordered and needs to be followed up. Continues to be treated with ertapenem, still not a surgical candidate at this time. Case management has found a facility to take the patient, [facility]. Edilson Shoemaker MD R1 Oct 25, 2017 11:48
[2017-10-25] MEDS: ERTAPENEM INJ 1,000 MG in SODIUM CHLORIDE 0.9% INJ 100 ML IV SCH (12:56)
[2017-10-25] MEDS: DRONABINOL 2.5 MG CAP PO SCH ×2 (12:56→17:03)
[2017-10-25 16:40] LABS: AUTOMATED NEUTROPHIL # 1.6 TH/MM3 (1.8-7.7); BASOPHIL % 0.3 % (0.0-2.0); EOSINOPHIL # 0.1 TH/MM3 (0-0.4); HEMATOCRIT 27.7 % (39.0-51.0); HEMOGLOBIN 9.2 GM/DL (13.0-17.0); LYMPH % 30.5 % (9.0-44.0); LYMPHOCYTE # 0.9 TH/MM3 (1.0-4.8); MEAN CELL VOLUME 93.2 FL (80.0-100.0); MEAN CORPUSCULAR HEMOGLOBIN 30.9 PG (27.0-34.0); MEAN CORPUSCULAR HGB CONC 33.1 % (32.0-36.0); MEAN PLATELET VOLUME 7.9 FL (7.0-11.0); MONOCYTE # 0.3 TH/MM3 (0-0.9); NEUT % 56.2 % (16.0-70.0); PLATELET COUNT 53 TH/MM3 (150-450); RED BLOOD COUNT 2.97 MIL/MM3 (4.50-5.90); RED CELL DISTRIBUTION WIDTH 18.6 % (11.6-17.2); WHITE BLOOD COUNT 2.9 TH/MM3 (4.0-11.0)
[2017-10-25 17:04] LABS: BICARBONATE 37.2 MEQ/L (21.0-32.0); CALCIUM 7.8 MG/DL (8.5-10.1); CREATININE 0.38 MG/DL (0.60-1.30)
[2017-10-26] VITALS (9 sets, daily range): BP systolic 98–120; BP diastolic 57–64; PULSE 84–113; RESP 15–18; TEMP 95.9–98; O2SAT 92–99
[2017-10-26] MEDS: metroNIDAZOLE 500 MG INJ 100 ML IV SCH ×3 (01:32→16:32)
[2017-10-26] MEDS: PANTOPRAZOLE SODIUM 40 MG VIAL IV PUSH SCH ×2 (01:32→14:30)
[2017-10-26] MEDS: SODIUM CHLOR 0.9% 1000 ML INJ 1,000 ML IV SCH ×2 (07:10→19:05)
[2017-10-26 07:17] LABS: HEMATOCRIT 25.2 % (39.0-51.0); HEMOGLOBIN 8.7 GM/DL (13.0-17.0); MEAN CELL VOLUME 92.7 FL (80.0-100.0); MEAN CORPUSCULAR HEMOGLOBIN 32.1 PG (27.0-34.0); MEAN CORPUSCULAR HGB CONC 34.7 % (32.0-36.0); MEAN PLATELET VOLUME 7.8 FL (7.0-11.0); PLATELET COUNT 46 TH/MM3 (150-450); RED BLOOD COUNT 2.72 MIL/MM3 (4.50-5.90); RED CELL DISTRIBUTION WIDTH 18.3 % (11.6-17.2); WHITE BLOOD COUNT 2.3 TH/MM3 (4.0-11.0)
[2017-10-26 07:43] LABS: BICARBONATE 35.2 MEQ/L (21.0-32.0); CALCIUM 7.5 MG/DL (8.5-10.1); CREATININE 0.29 MG/DL (0.60-1.30)
[2017-10-26] MEDS: POTASSIUM CHLORIDE 20 MEQ CONTROLLED RELEASE TAB PO SCH ×3 (08:22→21:11)
[2017-10-26] MEDS: FLUoxetine HCL 20 MG CAP PO SCH (08:22)
[2017-10-26] MEDS: FOLIC ACID 1 MG TAB PO SCH (08:22)
[2017-10-26] MEDS: SPIRONOLACTONE 25 MG TAB PO SCH ×2 (08:22→16:32)
[2017-10-26] MEDS: BUDESONIDE-FORMOTEROL 160/4.5 MCG INHALER INH SCH ×2 (08:23→23:43)
[2017-10-26] MEDS: METOPROLOL TARTRATE 25 MG TAB PO SCH ×2 (08:23→21:10)
[2017-10-26] MEDS: SODIUM CHLORIDE 0.9% FLUSH 10 ML FLUSH IV FLUSH SCH ×2 (08:23→21:12)
[2017-10-26] MEDS: NYSTATIN 100,000 U/GM PWD 15 GM BTL TOPICAL SCH ×2 (08:24→23:43)
[2017-10-26] MEDS: COLLAGENASE OINT 30 GM TUBE TOPICAL SCH (08:24)
[2017-10-26] MEDS: FUROSEMIDE 20 MG TAB PO SCH (08:24)
--- NOTE | 2017-10-26 10:15 | HHI.FPPN ---
Subjective Remarks Patient seen and examined at bedside this morning. Nurse reports pt has not been eating much. Nurse also reports that thought pt was asymptomatic his oxygen saturations dropped to 92 this he was placed on a simple mask. While we were in pt's room his was on 9L of oxygen. Pt denies any symptoms, states he is breathing ok. Objective Vitals Vital Signs Date Time Temp Pulse Resp B/P (MAP) Pulse Ox O2 Delivery O2 Flow Rate FiO2 10/26/17 08:44 Nasal Cannula 6.00 10/26/17 08:00 97.3 87 16 98/57 (71) 99 10/26/17 04:00 96.3 88 18 99/58 (72) 97 10/26/17 03:45 88 10/26/17 00:00 97.4 87 18 103/60 (74) 97 10/26/17 00:00 89 10/25/17 20:00 Simple Mask 11.00 10/25/17 20:00 97.8 86 18 98/60 (73) 100 10/25/17 20:00 87 10/25/17 17:33 92 Nasal Cannula 3.00 10/25/17 16:06 Simple Mask 10.00 10/25/17 16:00 96.7 84 17 95/63 (74) 92 10/25/17 12:00 98.1 92 16 103/61 (75) 95 I/O 10/25/17 10/25/17 10/25/17 10/26/17 10/26/17 10/26/17 07:00 15:00 23:00 07:00 15:00 23:00 Intake Total 1078 ml 512 ml 662 ml 120 ml Output Total 500 ml 1025 ml 350 ml Balance 578 ml 512 ml -363 ml -230 ml Intake Oral 360 ml 240 ml 120 ml IV Total 718 ml 512 ml 422 ml Output Urine Total 500 ml 1025 ml 350 ml # Bowel Movements 0 1 1 Result Diagram: 10/26/1731 10/26/17630 Objective Remarks CONSTITUTIONAL/GEN: Cachectic male, lying in bed PSYCH/NEURO: AOx3. No CN defects. No peripheral motor/sensory defects. SKIN: Maculopapular rash extending from mid back along the left axilla and torso , spread to legs,about 90% almost fully improved per pt. LUNGS: Wheezing throughout lung post. Patient on nasal cannula 9L. MSK: Nontender and non-throbbing edema along right medial elbow extending approximately 3-4 inches proximally CARDIOVASCULAR: Regular rhythm; No LE edema GI/ABD: soft, normal BS; no pain to palpation : catheter in place A/P Assessment and Plan 66 yr old M Hep C, hx of heavy smoking (2ppd for 61 yrs), and chronic aspirin use presented to the ED with anemia and black tarry stools secondary to suspected GI bleed. Patient transferred to ICU 09/30 for ESBL E.coli sepsis. Patient hemodynamically stable for transfer to med/surg 10/03. Patient confused/ delirious with hypercarbia 10/19; transferred to ICU for BIPAP. Discharge Planning Case Management to assist with SNF placement, accepted to [facility] Pending workup and management of multiple chronic issues, currently stabilizing , possible discharge within the next few days Discussed with pt plan for him to continue care at [facility] as this will help him regain his strength Problem List: (1) Hypoxia ICD Codes: R09.02 - Hypoxemia Status: Acute Plan: improved mental status. On nasal cannula now -Transferred to med/surg floor -Continue to monitor -Pulmonology consulted, follow-up recommendations * s/p thoracentesis 10/18 * Incentive spirometry * DuoNeb 4 times a day, when necessary * Aldactone 25mg BID * Lasix 20mg IV daily * O2 to keep sat>92 * Lasix 20 mg daily Impression: Patient has been on substantial O2 requirement via NC since admission; Pt with O2 drop to 92 overnight, currently on 9L on simple mask with O2 sat >95%. Associated with anemia. No symptoms appreciated by patient, no tachypnea. History of tobacco abuse. CT revealed dominant opacity seen on recent CXR represents loculated pleural effusion in the superior major fissure. Small b/l pleural effusions, mild consolidative infiltrates in the right lower lung, and right upper abdominal ascites. Calcified gallstones. Echo on 10/01 shows EF of 60-65%, normal LV systolic function S/p thoracentesis 10/01/2017- pleural fluid negative for malignancy CXR (10/15): no change; small to moderate left effusion (no interval change from 10/12 (pulmonary vascular congestion, L sided effusion)) ABG (10/15): pH 7.42, pCO2 57, pO2 55, O2 sat 85% ABG (10/17): pH 7.44, PCO2 56, PO2 71 CTA (10/16/2017): without evidence of PE, left-sided pleural effusion, ascites noted s/p transfusion (8 total U pRBC; most recently 2 U 10/17/2017) s/p L thoracentesis 10/18- 1300ml serosanguineous fluid aspirated Venous blood gas (10/09) -pH 7.4, pCO2 60, pO2 24, HCO3 37 CXR (10/23): stable BL pleural effusions and predominantly basilar infiltrates. (2) Bacteremia ICD Codes: R78.81 - Bacteremia Status: Acute Plan: ID consulted, appreciate recommendations * E.coli ESBL sepsis, source is likely GI, questionable SBP * Continue Ertapenem 1000 mg IV q24h (10/02) x 6-8 weeks per ID History: Transferred to med/surg floor 10/03; previously transferred to ICU secondary to ESBL sepsis. Patient met sepsis criteria 09/29 due to tachycardic at 95-113 and hypotension 86/53 Lactic acid 1.4 09/29, Repeat lactic acid 1.5 s/p 500cc bolus of NS, MIVF 140mls/hr 09/29 * CT abd/pelvis w/o contrast done 09/30 revealed moderate size left pleural effusion, ascites, 5cm infrarenal abdominal aortic aneurysm and mesenteric stranding. * CTA 10/01 7.3 cm AAA, contained rupture, cirrhosis, splenomegaly, cholelithiasis, moderate ascites, no evident of protal vein thrombosis or Budd- Chiari syndrome, COPD with bibasilar airspace disease and parapneumonic effusions * 2-D echo - 60-65% EF * Left pleural effusion- thoracentesis with removal of 750 cc of dark yellow fluid. Fluid appeared transudative. * Ascites- paracentesis with removal of 1100 cc of yellow fluids. This appeared due to portal hypertension. * Possibility of aortoenteric fistula Cultures: Blood- Cultures 10/10 NGTD Staph hominis 10/06 (pansensitive) ESBL E Coli 09/29 (resistant, to Ampicillin, Unasyn, Cefazolin, Cefepime, Cefuroxime, Levofloxacin) Antibiotic history: Vancomycin (restarted 10/07-10/11) Vancomycin 1,250mg IV q12h (09/29-10/01) Zosyn 4.5 gm IV q6h (started 09/30-09/22) Azithromycin 250mg PO daily (10/01-10/04) (3) Elbow swelling ICD Codes: M25.429 - Effusion, unspecified elbow Plan: Nontender and non-throbbing edema along right medial elbow extending approximately 3-4 inches proximally initially observed 10/25/17. -Upper extremity ultrasound showed: minimal thrombus noted within the Left cephalic vein near the IV site. No DVT noted within RUE. -Nurse informed to switch IV line from Left arm -will continue to monitor (4) Pancytopenia ICD Codes: D61.818 - Other pancytopenia Plan: Labile WBC, stable Hgb Hem/Onc consulted, appreciate recs -Neupogen PRN per Hematology -Monitor CBC and transfuse as needed -Continue daily folate Impression: Pancytopenia; failure to thrive. Per Hem Onc, treated in / cleared but titers elevated during hospitalization. WBC down since admission, Hb downtrending, plts trending down since admission A/P CT and CTA - pelvic ascites, 7.3cm infrarenal AAA, calcified gallstones, moderate pleural effusions, cirrhosis, CTA S/P thoracentesis, paracentesis Transfusion history: 8 total U pRBC (most recently 2 U pRBC given 10/17), 1 U FFP, 1 U platelets transfused (5) Rash and nonspecific skin eruption ICD Codes: R21 - Rash and other nonspecific skin eruption Status: Acute Plan: petechiae vs contact dermatitis vs drug reaction; Improving significantly -Careful with Benadryl due to anticholinergic effects, but may use PRN -Per ID prednisone 40 mg daily, short course -Monitor for improvement or change (6) Delirium ICD Codes: R41.0 - Disorientation, unspecified Status: Resolved Plan: Ammonia wnl. Possible CO2 narcosis, no delirium today. -Continue O2 supplementation -Dronabinol 2.5mg BID was initially held but is currently being given and does not seem to contribute to delirium -Psychiatry consulted -Suspect delirium secondary to general medical condition -Consider initiating Haldol BID with titration to TID if needed; additional PRN Haldol for acute agitation; EKG if needed to assess QTC -Frequent reorientation/mobilization -Aggressive management of retention or constipation -Sitter preferred over restraints Impression: no focal neurologic deficits. PMH alcholism, liver disease, COPD (7) AAA (abdominal aortic aneurysm) ICD Codes: I71.4 - Abdominal aortic aneurysm, without rupture Plan: CT abd/pelvis w/o contrast done 09/30 5cm infrarenal abdominal aortic aneurysm Aorta CTA 7.3 cm infrarenal AAA with laminated wall, contained rupture which may be chronic and possible associated aortic wall inflammation indicating aortitis Vascular surgery consulted, appreciate recs [facility] confirms that no intervention at this time No intervention for AAA until infection cleared -Continue to follow at this time -Add metoprolol tartrate 12.5mg BID for tachycardia (8) GI bleed ICD Codes: K92.2 - Gastrointestinal hemorrhage, unspecified Status: Resolved Plan: GI consulted for mesenteric stranding and ascites, appreciate recommendations -Protonix 40mg IV BID -Supportive care -Sign off; consult as needed Avoid NSAIDs and anticoagulation EGD in 2 months Colonoscopy in 2 years History: Hb of 6.1 upon admission,1 month hx of black tarry stools, chronic aspirin use Hemoccult performed by RN in ED on 09/28- positive EGD/colonoscopy demonstrated hiatal hernia, gastric ulcer, erosive gastritis and colon polyp Duo/stomach biopsy- Stomach, reactive/chemical gastropathy with intestinal metaplasia. Colon, sigmoid, adenomatous polyp HCV quant, less than 15 IUs/ ml, less than 1.18 log IUs/mlAlpha-feto protein wnl Elevated ferritin levels due to underlying cirrhosis most likely AMSA, AMA negative A1AT 148 Hemochromatosis workup negative Transfusion history: 8 total U pRBC (most recently 2 U pRBC given 10/17), 1 U FFP, 1 U platelets transfused (9) Hematuria ICD Codes: R31.9 - Hematuria, unspecified Status: Resolved Plan: -UA 09/30 moderate occult blood, unlikely traumatic, patient has condom catheter -PSA wnl 0.15 -Renal US 10/04 demonstrated small nonobstructing 3mm calyceal calculus in the mid left kidney. 1.4 cm cyst in the inferior pole of the right kidney. -Urology consulted, recs appreciated Urologic impression: gross hematuria (now resolved) of indeterminate etiology; abnormal coagulation profile and thrombocytopenia likely contributing to the hematuria * manage conservatively for now * office follow up after hospital discharge when overall medical condition improved for cystoscopic evaluation [phone] * will be available as needed during present hospitalization (10) Hepatitis C ICD Codes: B19.20 - Unspecified viral hepatitis C without hepatic coma Status: Acute Plan: -paracentesis 10/21/17 Impression: Patient reports history of Hep C. Patient reports being treated in the 80's. LFTs wnl. alpha fetoprotein wnl HCV quant, less than 15 IUs/ml, less than 1.18 log IUs/ml A/P CT with moderate pelvic ascites, calcified gallstones. Abdominal US- cirrhotic appearing liver; ascites in upper abdomen. Gallstones and thickened gallbladder wall. Splenomegaly; assumed secondary to portal hypertension/cirrhosis (11) Abnormal chest x-ray ICD Codes: R93.8 - Abnormal findings on diagnostic imaging of other specified body structures Plan: Impression: Heavy smoker. Mass 2.51 x 3.86 found on CXR. Small free- flowing right pleural effusion at the base. CT revealed dominant opacity seen on recent CXR represents loculated pleural effusion in the superior major fissure. Small b/l pleural effusions, mild consolidative infiltrates in the right lower lung, and right upper abdominal ascites. Calcified gallstones. S/p thoracentesis 10/01/2017- pleural fluid negative for malignancy (12) Decreased appetite ICD Codes: R63.0 - Anorexia Status: Acute Plan: -Will attempt to initiate tube feedings if continued failure to eat -Continue to monitor intake -Psychiatry consulted -Hold Remeron -c/w Marinol BID -Prozac 20mg daily Impression: Lack of oral intake during hospitalization. Suspect possible depression as etiology. Patient agreeable to tube feedings (13) RALF (acute kidney injury) ICD Codes: N17.9 - Acute kidney failure, unspecified Status: Resolved Plan: -Resolved -Continue to monitor Impression: RALF secondary to dehydration BUN 28 and Cr 0.53 upon admission (14) Sacral wound ICD Codes: S31.000A - Unspecified open wound of lower back and pelvis without penetration into retroperitoneum, initial encounter Plan: Unstageable sacral wound, 3cm x 6cm Wound care consulted, recommendations appreciated 1) Cleanse sacral wound with normal saline,pat dry. 2) Apply skin prep to gibran wound 3) Santyl josé thick to wound bed 4) Cover with Maxorb 2 cut to fit. 5) Cover with dry dressing (boarder gauze) 6) Change dressing Daily will re-evaluate . (15) Nutrition, metabolism, and development symptoms ICD Codes: R63.8 - Other symptoms and signs concerning food and fluid intake Plan: Fluids: 84mls/hr NS Diet: Lack of PO intake; Regular Basic diet Electrolytes: monitor and replace as needed Other: Case management consulted GI ppx: Protonix 40mg IV q12h DVT ppx: SCDs See the residents documentation for details. I saw and evaluated the patient regarding the roland portions of this evaluation and agree with the residents findings and plans as written. Parts of this note were created using [employer] voice recognition software program. While efforts were made to correct any mistakes made by this software, some mistakes, errors, and omissions may remain in the final note that were not caught when the note was originally created. Plan of care was discussed and agreed upon with the patient as specifically documented in the above note. An opportunity to ask questions with explanation was provided. Patient voiced understanding on all information reviewed and discussed. Problem Qualifiers (1) Elbow swelling: Qualified Codes: M25.421 - Effusion, right elbow (2) GI bleed: Qualified Codes: K92.2 - Gastrointestinal hemorrhage, unspecified (3) Sacral wound: Qualified Codes: S31.000D - Unspecified open wound of lower back and pelvis without penetration into retroperitoneum, subsequent encounter Gustavo Moody MD, R1 Oct 26, 2017 10:15
[2017-10-26] MEDS: DRONABINOL 2.5 MG CAP PO SCH ×2 (11:29→16:32)
[2017-10-26] MEDS: ERTAPENEM INJ 1,000 MG in SODIUM CHLORIDE 0.9% INJ 100 ML IV SCH (14:30)
[2017-10-26] MEDS: HALOPERIDOL LACTATE 5 MG/ML AMP IV PRN (23:42)
[2017-10-27] VITALS (7 sets, daily range): BP systolic 92–148; BP diastolic 57–69; PULSE 92–112; RESP 15–21; TEMP 95.7–98.3; O2SAT 90–96
[2017-10-27] MEDS: metroNIDAZOLE 500 MG INJ 100 ML IV SCH ×3 (01:29→16:14)
[2017-10-27] MEDS: PANTOPRAZOLE SODIUM 40 MG VIAL IV PUSH SCH ×2 (01:29→12:18)
[2017-10-27] MEDS: SODIUM CHLOR 0.9% 1000 ML INJ 1,000 ML IV SCH ×2 (06:08→16:17)
[2017-10-27 07:34] LABS: AUTOMATED NEUTROPHIL # 0.9 TH/MM3 (1.8-7.7); BASOPHIL % 0.4 % (0.0-2.0); EOSINOPHIL # 0.1 TH/MM3 (0-0.4); EOSINOPHIL % 3.3 % (0.0-4.0); HEMATOCRIT 24.8 % (39.0-51.0); HEMOGLOBIN 8.5 GM/DL (13.0-17.0); LYMPH % 33.7 % (9.0-44.0); LYMPHOCYTE # 0.6 TH/MM3 (1.0-4.8); MEAN CELL VOLUME 93.3 FL (80.0-100.0); MEAN CORPUSCULAR HEMOGLOBIN 31.9 PG (27.0-34.0); MEAN CORPUSCULAR HGB CONC 34.2 % (32.0-36.0); MEAN PLATELET VOLUME 8.1 FL (7.0-11.0); MONO % 11.4 % (0.0-8.0); MONOCYTE # 0.2 TH/MM3 (0-0.9); NEUT % 51.2 % (16.0-70.0); PLATELET COUNT 49 TH/MM3 (150-450); RED BLOOD COUNT 2.66 MIL/MM3 (4.50-5.90); RED CELL DISTRIBUTION WIDTH 18.2 % (11.6-17.2); WHITE BLOOD COUNT 1.8 TH/MM3 (4.0-11.0)
[2017-10-27] MEDS: FLUoxetine HCL 20 MG CAP PO SCH (08:10)
[2017-10-27] MEDS: SPIRONOLACTONE 25 MG TAB PO SCH ×2 (08:10→16:14)
[2017-10-27] MEDS: SODIUM CHLORIDE 0.9% FLUSH 10 ML FLUSH IV FLUSH SCH ×2 (08:10→21:06)
[2017-10-27] MEDS: FOLIC ACID 1 MG TAB PO SCH (08:10)
[2017-10-27] MEDS: POTASSIUM CHLORIDE 20 MEQ CONTROLLED RELEASE TAB PO SCH ×3 (08:11→21:04)
[2017-10-27] MEDS: FUROSEMIDE 20 MG TAB PO SCH (08:11)
[2017-10-27] MEDS: METOPROLOL TARTRATE 25 MG TAB PO SCH ×2 (08:11→21:04)
[2017-10-27] MEDS: BUDESONIDE-FORMOTEROL 160/4.5 MCG INHALER INH SCH ×2 (08:11→21:04)
[2017-10-27] MEDS: COLLAGENASE OINT 30 GM TUBE TOPICAL SCH (08:12)
[2017-10-27] MEDS: NYSTATIN 100,000 U/GM PWD 15 GM BTL TOPICAL SCH ×2 (08:12→21:04)
[2017-10-27 09:25] LABS: BANDS 2 % (0-6); LYMPHOCYTES 19 % (9-44); MONOCYTES 13 % (0-8); NEUTROPHIL # MANUAL DIFF 1.2 TH/MM3 (1.8-7.7); POLYS (SEG NEUTROPHILS) 63 % (16-70)
[2017-10-27 09:26] LABS: STOMATOCYTES 1+ (NORMAL)
--- NOTE | 2017-10-27 10:53 | PD.ONC.PN ---
Subjective Subjective Remarks Afebrile overnight. Patient resting in bed. Confused about where he is, "do I need to go to the hospital?" Denies pain. denies itching when asked, (I asked him as his skin appears dry) No bleeding. Objective Data Date Time Temp Pulse Resp B/P (MAP) Pulse Ox O2 Delivery O2 Flow Rate FiO2 10/27/17 09:54 Nasal Cannula 4.00 10/27/17 09:20 93 Nasal Cannula 5.00 10/27/17 07:57 96.9 92 21 94/60 (71) 95 10/27/17 04:00 98.3 102 17 135/60 (85) 92 10/27/17 00:00 95.7 112 15 148/57 (87) 94 10/26/17 20:50 93 Nasal Cannula 5.00 10/26/17 20:00 95.9 113 15 107/60 (76) 92 10/26/17 16:00 97.1 95 17 120/64 (82) 96 10/26/17 12:00 98.0 84 18 103/63 (76) 98 10/27/17 10/27/17 10/27/17 07:00 15:00 23:00 Intake Total 240 ml 120 ml Balance 240 ml 120 ml Result Diagram: 10/27/17 0700 10/26/17 0631 Laboratory Results Laboratory Tests Test 10/27/17 07:00 White Blood Count 1.8 TH/MM3 Red Blood Count 2.66 MIL/MM3 Hemoglobin 8.5 GM/DL Hematocrit 24.8 % Mean Corpuscular Volume 93.3 FL Mean Corpuscular Hemoglobin 31.9 PG Mean Corpuscular Hemoglobin Concent 34.2 % Red Cell Distribution Width 18.2 % Platelet Count 49 TH/MM3 Mean Platelet Volume 8.1 FL Neutrophils (%) (Auto) 51.2 % Lymphocytes (%) (Auto) 33.7 % Monocytes (%) (Auto) 11.4 % Eosinophils (%) (Auto) 3.3 % Basophils (%) (Auto) 0.4 % Neutrophils # (Auto) 0.9 TH/MM3 Lymphocytes # (Auto) 0.6 TH/MM3 Monocytes # (Auto) 0.2 TH/MM3 Eosinophils # (Auto) 0.1 TH/MM3 Basophils # (Auto) 0.0 TH/MM3 CBC Comment AUTO DIFF Differential Total Cells Counted 100 Neutrophils % (Manual) 63 % Band Neutrophils % 2 % Lymphocytes % 19 % Monocytes % 13 % Eosinophils % 3 % Neutrophils # (Manual) 1.2 TH/MM3 Differential Comment FINAL DIFF MANUAL Platelet Estimate LOW Platelet Morphology Comment NORMAL Stomatocytes 1+ Administered Medications Medications (Trade) Dose Ordered Sig/Jailene Route PRN Reason Start Time Stop Time Status Last Admin Dose Admin Sodium Chloride (NS Flush) 2 ml BID IV FLUSH 09/28/17 13:45 10/26/17 21:12 Pantoprazole Sodium (Protonix Inj) 40 mg Q12H IV PUSH 09/28/17 14:00 10/27/17 01:29 Collagenase (Santyl Oint) 1 applic DAILY TOPICAL 09/29/17 12:45 10/27/17 08:12 Diphenhydramine HCl (Benadryl) 25 mg Q4H PRN PO SEE LABEL COMMENTS 10/01/17 09:30 10/01/17 09:30 Diphenhydramine HCl (Benadryl 2% Cream) 1 applic TID PRN TOPICAL ITCHING 10/02/17 10:00 10/02/17 10:23 Folic Acid (Folate) 1 mg DAILY PO 10/02/17 11:00 10/27/17 08:10 Ertapenem 1000 mg/ Sodium Chloride 100 ml @ 200 mls/hr Q24H IV 10/06/17 14:00 Future hold 10/26/17 14:30 Mirtazapine (Remeron) 15 mg HS PO 10/16/17 21:00 Future Hold 10/18/17 21:39 Metoprolol Tartrate (Lopressor) 12.5 mg Q12HR PO 10/16/17 21:00 10/26/17 21:10 Diphenhydramine HCl (Benadryl) 25 mg Q6H PRN PO RASH 10/18/17 10:00 10/26/17 08:22 Spironolactone (Aldactone) 25 mg BID@18 PO 10/18/17 18:00 10/27/17 08:10 Potassium Chloride (KCl) 20 meq Q12HR PO 10/18/17 21:00 10/27/17 08:11 Furosemide (Lasix) 20 mg DAILY PO 10/19/17 09:00 10/27/17 08:11 Nystatin (Mycostatin Powder) 1 applic Q12HR TOPICAL 10/19/17 09:00 10/27/17 08:12 Fluoxetine HCl (PROzac) 20 mg DAILY PO 10/19/17 09:00 10/27/17 08:10 Haloperidol Lactate (Haldol Inj) 0.5 mg TID PRN IV AGITATION 10/19/17 10:00 10/26/17 23:42 Dronabinol (Marinol) 2.5 mg BID@11,16 PO 10/20/17 11:00 10/26/17 16:32 Miscellaneous Information Patient in critical care unit? Ass... [id number] .XX 10/20/17 20:30 10/20/17 20:30 Sodium Chloride 1,000 ml @ 84 mls/hr [id number] IV 10/21/17 08:00 10/27/17 06:08 Metronidazole 100 ml @ 100 mls/hr Q8H IV 10/21/17 17:00 10/27/17 08:10 Budesonide/ Formoterol Fumarate (Symbicort 160-4.5 Mcg Inh) 2 puff Q12HR INH 10/24/17 09:00 10/27/17 08:11 Objective Remarks GENERAL: chronically ill appearing male, lying in bed SKIN: dry, flaky skin, occasional petechiae but not a large amount. HEAD: Normocephalic. EYES: No injection or drainage. NECK: Supple, trachea midline. CARDIOVASCULAR: +S1/S2 RESPIRATORY: anterior post with occasional rhonchi. GASTROINTESTINAL: Abdomen soft, non-tender, nondistended. EXTREMITIES: No cyanosis NEUROLOGICAL: awake. normal speech. Assessment/Plan Problem List: (1) Pancytopenia ICD Codes: D61.818 - Other pancytopenia Plan: --chronic d/t poor synthetic liver function --monitor and transfuse as needed --give Neupogen as needed for neutrophil count less than 1.5 Assessment 66y/o male with pancytopenia and failure to thrive. --history of hepatitis C diagnosed in the 1980s;states he was treated for the hepatitis C and this was "cleared." Repeat hepatitis C titers this hospitalization indicate low circulating hepatitis C vital titers. --CT angiogram showed cirrhotic-appearing liver with splenomegaly and moderate ascites. --likely has baseline pancytopenia due to cirrhosis and splenomegaly with further drop in the white blood cell and platelet count due to recent sepsis. Plan 1. resume Neupogen 2. no blood transfusion needed 3. eucerin cream for dry skin. Attending Statement The exam, history, and the medical decision-making described in the above note were completed with the assistance of the mid-level provider. I reviewed and agree with the findings presented. I attest that I had a [id number] encounter with the patient on the same day, and personally performed and documented my assessment and findings in the medical record. Mildly confused. Denies any pain. WBC trending down again, will give another neupogen. Maria Elena Gómez Oct 27, 2017 10:53 Shaun Gerardo MD Oct 27, 2017 17:22
[2017-10-27] MEDS ORDERED: EUCERIN CREAM 120 GM JAR TOPICAL PRN (11:00)
[2017-10-27] MEDS: ERTAPENEM INJ 1,000 MG in SODIUM CHLORIDE 0.9% INJ 100 ML IV SCH (12:18)
[2017-10-27] MEDS: DRONABINOL 2.5 MG CAP PO SCH ×2 (13:04→16:14)
--- NOTE | 2017-10-27 13:19 | HHI.IDPN ---
Subjective Subjective Remarks Denies pruritis cont to have high volume liquid diarrhea afebrile BP somewhat low Antibiotics Ertapenem Lines PIV Past Medical History Hep C Allergies: Coded Allergies: No Known Allergies (Unverified , 09/28/17) Objective . Vital Signs Date Time Temp Pulse Resp B/P (MAP) Pulse Ox O2 Delivery O2 Flow Rate FiO2 10/27/17 12:00 98.0 92 20 96/65 (75) 96 10/27/17 09:54 Nasal Cannula 4.00 10/27/17 09:20 93 Nasal Cannula 5.00 10/27/17 07:57 96.9 92 21 94/60 (71) 95 10/27/17 04:00 98.3 102 17 135/60 (85) 92 10/27/17 00:00 95.7 112 15 148/57 (87) 94 10/26/17 20:50 93 Nasal Cannula 5.00 10/26/17 20:00 95.9 113 15 107/60 (76) 92 10/26/17 16:00 97.1 95 17 120/64 (82) 96 10/27/17 10/27/17 10/28/17 15:00 23:00 07:00 Intake Total 220 ml Balance 220 ml Intake Oral 120 ml IV Total 100 ml . Laboratory Tests Test 10/25/17 16:05 10/26/17 06:31 10/27/17 07:00 White Blood Count 2.9 TH/MM3 2.3 TH/MM3 1.8 TH/MM3 Red Blood Count 2.97 MIL/MM3 2.72 MIL/MM3 2.66 MIL/MM3 Hemoglobin 9.2 GM/DL 8.7 GM/DL 8.5 GM/DL Hematocrit 27.7 % 25.2 % 24.8 % Mean Corpuscular Volume 93.2 FL 92.7 FL 93.3 FL Mean Corpuscular Hemoglobin 30.9 PG 32.1 PG 31.9 PG Mean Corpuscular Hemoglobin Concent 33.1 % 34.7 % 34.2 % Red Cell Distribution Width 18.6 % 18.3 % 18.2 % Platelet Count 53 TH/MM3 46 TH/MM3 49 TH/MM3 Mean Platelet Volume 7.9 FL 7.8 FL 8.1 FL Neutrophils (%) (Auto) 56.2 % 51.2 % Lymphocytes (%) (Auto) 30.5 % 33.7 % Monocytes (%) (Auto) 9.0 % 11.4 % Eosinophils (%) (Auto) 4.0 % 3.3 % Basophils (%) (Auto) 0.3 % 0.4 % Neutrophils # (Auto) 1.6 TH/MM3 0.9 TH/MM3 Lymphocytes # (Auto) 0.9 TH/MM3 0.6 TH/MM3 Monocytes # (Auto) 0.3 TH/MM3 0.2 TH/MM3 Eosinophils # (Auto) 0.1 TH/MM3 0.1 TH/MM3 Basophils # (Auto) 0.0 TH/MM3 0.0 TH/MM3 CBC Comment AUTO DIFF AUTO DIFF Differential Comment AUTO DIFF CONFIRMED FINAL DIFF MANUAL Differential Total Cells Counted 100 Neutrophils % (Manual) 63 % Band Neutrophils % 2 % Lymphocytes % 19 % Monocytes % 13 % Eosinophils % 3 % Neutrophils # (Manual) 1.2 TH/MM3 Platelet Estimate LOW Platelet Morphology Comment NORMAL Stomatocytes 1+ Laboratory Tests Test 10/25/17 16:05 10/26/17 06:31 Blood Urea Nitrogen 16 MG/DL 14 MG/DL Creatinine 0.38 MG/DL 0.29 MG/DL Random Glucose 70 MG/DL 58 MG/DL Calcium Level 7.8 MG/DL 7.5 MG/DL Sodium Level 139 MEQ/L 140 MEQ/L Potassium Level 3.6 MEQ/L 3.8 MEQ/L Chloride Level 99 MEQ/L 99 MEQ/L Carbon Dioxide Level 37.2 MEQ/L 35.2 MEQ/L Anion Gap 3 MEQ/L 6 MEQ/L Estimat Glomerular Filtration Rate 228 ML/MIN 311 ML/MIN Imaging Last Impressions Upper Extremity Ultrasound 10/25/17 0000 Signed Impressions: Service Date/Time: Wednesday, October 25, 2017 09:51 - CONCLUSION: Minimal thrombus is noted within the left cephalic vein near the IV site. No deep venous thrombosis is noted within the right upper extremity. Enrrique Mcclellan MD Chest X-Ray 10/23/17 0600 Signed Impressions: Service Date/Time: October 03:25 - CONCLUSION: Stable bilateral pleural effusions and predominantly basilar infiltrates. David Cordova Jr., MD Cyst Biopsy Asp-Paracentesis US 10/21/17 0000 Signed Impressions: Service Date/Time: Saturday, October 21, 2017 10:26 - CONCLUSION: Uncomplicated ultrasound guided paracentesis. Enrrique Mcclellan MD Abdomen Ultrasound 10/19/17 0000 Signed Impressions: Service Date/Time: Thursday, October 19, 2017 08:28 - CONCLUSION: 1. Cirrhotic appearing liver. There is ascites seen in the upper abdomen. 2. Gallstones and a thickened gallbladder wall. This can be correlated with any signs of cholecystitis. Gallbladder wall thickening can be seen with hepatic disease. 3. 5.4 cm abdominal aortic aneurysm. 4. Mild to moderate dilatation of the left collecting system. 5. Splenomegaly. This may be secondary to portal hypertension and the patient's cirrhosis. Nicko Camacho MD Chest Ultrasound 10/17/17 0000 Signed Impressions: Service Date/Time: Tuesday, October 17, 2017 22:23 - CONCLUSION: Moderate to large pleural effusion. Patient was marked for thoracentesis. Edilson Abreu MD CT Angiography 10/16/17 0000 Signed Impressions: Service Date/Time: September 14:10 - CONCLUSION: 1. No evidence of pulmonary embolism 2. Moderate to large left-sided pleural effusion with compressive atelectasis of the left lower lung 3. Small right-sided pleural effusion with atelectasis in the right lung base. 4. Ascites in the upper abdomen. Justo Florian MD Renal Ultrasound 10/04/17 0000 Signed Impressions: Service Date/Time: Wednesday, October 04, 2017 10:29 - CONCLUSION: 1. Small nonobstructing 3 mm calyceal calculus in the mid left kidney. 2. 1.4 cm cyst in the inferior pole of the right kidney. 3. Small amount of ascites. Rohan Leigh MD Aorta CTA 10/01/17 1556 Signed Impressions: Service Date/Time: Sunday, October 01, 2017 17:11 - CONCLUSION: 1. 7.3 cm infrarenal abdominal aortic aneurysm with laminated wall as described above. Findings suggest a contained rupture which may be chronic and possible associated aortic wall inflammation indicating aortitis. 2. Chronic liver disease characteristic of cirrhosis. 3. Splenomegaly 4. Cholelithiasis 5. Moderate ascites 6. No evidence of portal vein thrombosis or Budd-Chiari syndrome. 7. COPD with bibasilar airspace disease and parapneumonic effusions. 1. Herve Berumen MD Thoracentesis Ultrasound 10/01/17 0000 Signed Impressions: Service Date/Time: Sunday, October 01, 2017 11:27 - CONCLUSION: Uncomplicated ultrasound guided thoracentesis. Marc Alfredo MD Abdomen/Pelvis CT 09/30/17 0000 Signed Impressions: Service Date/Time: Sunday, October 01, 2017 02:21 - CONCLUSION: 1. 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 2. Moderate pleural effusions and moderate amount of abdominal pelvic ascites. 3. 2 calcified gallstones. David Blunt MD Chest CT 09/28/17 0000 Signed Impressions: Service Date/Time: Friday, September 29, 2017 01:23 - CONCLUSION: 1. The dominant opacity seen on recent chest x-ray represents loculated pleural effusion in the superior major fissure. 2. Small bilateral pleural effusions, mild consolidative infiltrates in the right lower lung, and right upper abdominal ascites. 3. Calcified gallstones. David Blunt MD Physical Exam GENERAL: Thin male, awake and alert, NAD SKIN: Warm and moist. Rash nearly 100% resolved EYES: Pupils equal and round and reactive. Extraocular motions intact. No scleral icterus. No injection or drainage. Mucosae is clear CARDIOVASCULAR: Regular rate and rhythm without murmurs RESPIRATORY/CHEST: Decreased breath sounds bilaterally at bases. GASTROINTESTINAL: Abdomen soft, non-tender, mildly distended. No guarding. Bowel sounds present. MUSCULOSKELETAL: Extremities without clubbing, cyanosis. Mild pedal edema. No calf tenderness. NEUROLOGICAL: Awake and alert. Motor and sensory grossly within normal limits. Follows commands. clear speech. Moves all extremities. 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 plt disfunction: pt is trombiocytopenic , rash currently most prominent in BLE where he has ICDs, non pruritic, non raised, non blanchible PLAN: Continue Ertapenem, until nov 25 Follow rash fu CBC will see as needed dw residents Marleni Giraldo MD Oct 27, 2017 13:19
[2017-10-27] MEDS ORDERED: FILGRASTIM 300 MCG/ML VIAL SQ SCH (14:00)
--- NOTE | 2017-10-27 16:29 | HHI.FPPN ---
Subjective Remarks Pt seen and examined this morning. No acute events overnight. Pt with no acute concerns this morning. He expresses the desire to discharged from the hospital. (Anastacio Marx MD R3) Objective Vitals Vital Signs Date Time Temp Pulse Resp B/P (MAP) Pulse Ox O2 Delivery O2 Flow Rate FiO2 10/27/17 16:00 97.6 106 20 92/59 (70) 90 10/27/17 12:00 98.0 92 20 96/65 (75) 96 10/27/17 09:54 Nasal Cannula 4.00 10/27/17 09:20 93 Nasal Cannula 5.00 10/27/17 07:57 96.9 92 21 94/60 (71) 95 10/27/17 04:00 98.3 102 17 135/60 (85) 92 10/27/17 00:00 95.7 112 15 148/57 (87) 94 10/26/17 20:50 93 Nasal Cannula 5.00 10/26/17 20:00 95.9 113 15 107/60 (76) 92 I/O 10/26/17 10/26/17 10/26/17 10/27/17 10/27/17 10/27/17 07:00 15:00 23:00 07:00 15:00 23:00 Intake Total 120 ml 808 ml 680 ml 240 ml 220 ml Output Total 350 ml 450 ml Balance -230 ml 808 ml 230 ml 240 ml 220 ml Intake Oral 120 ml 480 ml 240 ml 120 ml IV Total 808 ml 200 ml 100 ml Output Urine Total 350 ml 450 ml # Voids 3 2 # Bowel Movements 1 2 1 (Anastacio Marx MD R3) Result Diagram: 10/27/17 0700 10/26/17 0631 Objective Remarks CONSTITUTIONAL/GEN: Cachectic male, lying in bed PSYCH/NEURO: AOx3. No CN defects. No peripheral motor/sensory defects. SKIN: Maculopapular rash extending from mid back along the left axilla and torso , spread to legs, almost fully improved per pt. LUNGS: Wheezing throughout lung post. Patient on nasal cannula. CARDIOVASCULAR: Regular rhythm; No LE edema GI/ABD: soft, normal BS; no pain to palpation : catheter in place (Anastacio Marx MD R3) A/P Assessment and Plan 66 yr old M Hep C, hx of heavy smoking (2ppd for 61 yrs), and chronic aspirin use presented to the ED with anemia and black tarry stools secondary to suspected GI bleed. Patient transferred to ICU 09/30 for ESBL E.coli sepsis. Patient hemodynamically stable for transfer to med/surg 10/03. Patient confused/ delirious with hypercarbia 10/19; transferred to ICU for BIPAP. Discharge Planning Case Management to assist with SNF placement, accepted to [facility] Pending workup and management of multiple chronic issues, anticipate discharge tomorrow (Anastacio Marx MD R3) Problem List: (1) Hypoxia ICD Codes: R09.02 - Hypoxemia Status: Acute Plan: improved mental status. On nasal cannula now -Transferred to med/surg floor -Continue to monitor -Pulmonology consulted, follow-up recommendations * s/p thoracentesis 10/18 * Incentive spirometry * DuoNeb 4 times a day, when necessary * Aldactone 25mg BID * O2 to keep sat>92 * Lasix 20 mg daily * CXR (10/23): stable BL pleural effusions and predominantly basilar infiltrates. (2) Bacteremia ICD Codes: R78.81 - Bacteremia Status: Acute Plan: ID consulted, appreciate recommendations * E.coli ESBL sepsis, source is likely GI, questionable SBP * Continue Ertapenem 1000 mg IV q24h (10/02) x 6-8 weeks per ID History: Transferred to med/surg floor 10/03; previously transferred to ICU secondary to ESBL sepsis. Patient met sepsis criteria 09/29 due to tachycardic at 95-113 and hypotension 86/53 Lactic acid 1.4 09/29, Repeat lactic acid 1.5 s/p 500cc bolus of NS, MIVF 140mls/hr 09/29 * CT abd/pelvis w/o contrast done 09/30 revealed moderate size left pleural effusion, ascites, 5cm infrarenal abdominal aortic aneurysm and mesenteric stranding. * CTA 10/01 7.3 cm AAA, contained rupture, cirrhosis, splenomegaly, cholelithiasis, moderate ascites, no evident of protal vein thrombosis or Budd- Chiari syndrome, COPD with bibasilar airspace disease and parapneumonic effusions * 2-D echo - 60-65% EF * Left pleural effusion- thoracentesis with removal of 750 cc of dark yellow fluid. Fluid appeared transudative. * Ascites- paracentesis with removal of 1100 cc of yellow fluids. This appeared due to portal hypertension. * Possibility of aortoenteric fistula Cultures: Pleural fluid 10/18: Cultures with no growth to date Stool cultures negative Blood- Cultures 10/10 NGTD Staph hominis 10/06 (pansensitive) ESBL E Coli 09/29 (resistant, to Ampicillin, Unasyn, Cefazolin, Cefepime, Cefuroxime, Levofloxacin) Antibiotic history: Vancomycin (restarted 10/07-10/11) Vancomycin 1,250mg IV q12h (09/29-10/01) Zosyn 4.5 gm IV q6h (started 09/30-09/22) Azithromycin 250mg PO daily (10/01-10/04) (3) Elbow swelling ICD Codes: M25.429 - Effusion, unspecified elbow Plan: Nontender and non-throbbing edema along Right medial elbow extending approximately 3-4 inches proximally initially observed 10/25/17. -Upper extremity ultrasound showed: minimal thrombus noted within the Left cephalic vein near the IV site. No DVT noted within RUE. -Nurse informed to switch IV line from Left arm -will continue to monitor (4) Pancytopenia ICD Codes: D61.818 - Other pancytopenia Plan: Labile WBC, stable Hgb Hem/Onc consulted, appreciate recs -Neupogen PRN per Hematology -Monitor CBC and transfuse as needed -Continue daily folate (5) Rash and nonspecific skin eruption ICD Codes: R21 - Rash and other nonspecific skin eruption Status: Acute Plan: petechiae vs contact dermatitis vs drug reaction; Improving significantly -Continue to monitor (6) Delirium ICD Codes: R41.0 - Disorientation, unspecified Status: Resolved Plan: Ammonia wnl. -Continue O2 supplementation -Dronabinol 2.5mg BID was initially held but is currently being given and does not seem to contribute to delirium (7) AAA (abdominal aortic aneurysm) ICD Codes: I71.4 - Abdominal aortic aneurysm, without rupture Plan: CT abd/pelvis w/o contrast done 09/30 5cm infrarenal abdominal aortic aneurysm Aorta CTA 7.3 cm infrarenal AAA with laminated wall, contained rupture which may be chronic and possible associated aortic wall inflammation indicating aortitis Vascular surgery consulted, appreciate recs [facility] confirms that no intervention at this time No intervention for AAA until infection cleared -Continue to follow at this time -Continue metoprolol tartrate 12.5mg BID for tachycardia (8) GI bleed ICD Codes: K92.2 - Gastrointestinal hemorrhage, unspecified Status: Resolved Plan: GI consulted for mesenteric stranding and ascites, appreciate recommendations -Protonix 40mg IV BID -Supportive care -Sign off; consult as needed Avoid NSAIDs and anticoagulation EGD in 2 months Colonoscopy in 2 years (9) Hematuria ICD Codes: R31.9 - Hematuria, unspecified Status: Resolved Plan: -UA 09/30 moderate occult blood, unlikely traumatic, patient has condom catheter -PSA wnl 0.15 -Renal US 10/04 demonstrated small nonobstructing 3mm calyceal calculus in the mid left kidney. 1.4 cm cyst in the inferior pole of the right kidney. -Urology consulted, recs appreciated Urologic impression: gross hematuria (now resolved) of indeterminate etiology; abnormal coagulation profile and thrombocytopenia likely contributing to the hematuria * manage conservatively for now * office follow up after hospital discharge when overall medical condition improved for cystoscopic evaluation [phone] * will be available as needed during present hospitalization (10) Hepatitis C ICD Codes: B19.20 - Unspecified viral hepatitis C without hepatic coma Status: Acute Plan: -paracentesis 10/21/17 Impression: Patient reports history of Hep C. Patient reports being treated in the s. LFTs wnl. alpha fetoprotein wnl HCV quant, less than 15 IUs/ml, less than 1.18 log IUs/ml A/P CT with moderate pelvic ascites, calcified gallstones. Abdominal US- cirrhotic appearing liver; ascites in upper abdomen. Gallstones and thickened gallbladder wall. Splenomegaly; assumed secondary to portal hypertension/cirrhosis (11) Abnormal chest x-ray ICD Codes: R93.8 - Abnormal findings on diagnostic imaging of other specified body structures Plan: Impression: Heavy smoker. Mass 2.51 x 3.86 found on CXR. Small free- flowing right pleural effusion at the base. CT revealed dominant opacity seen on recent CXR represents loculated pleural effusion in the superior major fissure. Small b/l pleural effusions, mild consolidative infiltrates in the right lower lung, and right upper abdominal ascites. Calcified gallstones. S/p thoracentesis 10/01/2017- pleural fluid negative for malignancy (12) Decreased appetite ICD Codes: R63.0 - Anorexia Status: Acute Plan: -Continue to monitor intake -c/w Marinol BID -Prozac 20mg daily (13) Sacral wound ICD Codes: S31.000A - Unspecified open wound of lower back and pelvis without penetration into retroperitoneum, initial encounter Plan: Unstageable sacral wound, 3cm x 6cm Wound care consulted, recommendations appreciated 1) Cleanse sacral wound with normal saline,pat dry. 2) Apply skin prep to gibran wound 3) Santyl josé thick to wound bed 4) Cover with Maxorb 2 cut to fit. 5) Cover with dry dressing (boarder gauze) 6) Change dressing Daily will re-evaluate . (14) Nutrition, metabolism, and development symptoms ICD Codes: R63.8 - Other symptoms and signs concerning food and fluid intake Plan: Fluids: 84mls/hr NS Diet: Lack of PO intake; Regular Basic diet Electrolytes: monitor and replace as needed Other: Case management consulted GI ppx: Protonix 40mg IV q12h DVT ppx: SCDs (Anastacio Marx MD R3) Problem List: (1) Hypoxia ICD Codes: R09.02 - Hypoxemia Status: Acute Plan: improved mental status. On nasal cannula now -Transferred to med/surg floor -Continue to monitor -Pulmonology consulted, follow-up recommendations * s/p thoracentesis 10/18 * Incentive spirometry * DuoNeb 4 times a day, when necessary * Aldactone 25mg BID * O2 to keep sat>92 * Lasix 20 mg daily * CXR (10/23): stable BL pleural effusions and predominantly basilar infiltrates. (2) Bacteremia ICD Codes: R78.81 - Bacteremia Status: Acute Plan: ID consulted, appreciate recommendations * E.coli ESBL sepsis, source is likely GI, questionable SBP * Continue Ertapenem 1000 mg IV q24h (10/02) x 6-8 weeks per ID History: Transferred to med/surg floor 10/03; previously transferred to ICU secondary to ESBL sepsis. Patient met sepsis criteria 09/29 due to tachycardic at 95-113 and hypotension 86/53 Lactic acid 1.4 09/29, Repeat lactic acid 1.5 s/p 500cc bolus of NS, MIVF 140mls/hr 09/29 * CT abd/pelvis w/o contrast done 09/30 revealed moderate size left pleural effusion, ascites, 5cm infrarenal abdominal aortic aneurysm and mesenteric stranding. * CTA 10/01 7.3 cm AAA, contained rupture, cirrhosis, splenomegaly, cholelithiasis, moderate ascites, no evident of protal vein thrombosis or Budd- Chiari syndrome, COPD with bibasilar airspace disease and parapneumonic effusions * 2-D echo - 60-65% EF * Left pleural effusion- thoracentesis with removal of 750 cc of dark yellow fluid. Fluid appeared transudative. * Ascites- paracentesis with removal of 1100 cc of yellow fluids. This appeared due to portal hypertension. * Possibility of aortoenteric fistula Cultures: Pleural fluid 10/18: Cultures with no growth to date Stool cultures negative Blood- Cultures 10/10 NGTD Staph hominis 10/06 (pansensitive) ESBL E Coli 09/29 (resistant, to Ampicillin, Unasyn, Cefazolin, Cefepime, Cefuroxime, Levofloxacin) Antibiotic history: Vancomycin (restarted 10/07-10/11) Vancomycin 1,250mg IV q12h (09/29-10/01) Zosyn 4.5 gm IV q6h (started 09/30-09/22) Azithromycin 250mg PO daily (10/01-10/04) (3) Elbow swelling ICD Codes: M25.429 - Effusion, unspecified elbow Plan: Nontender and non-throbbing edema along Right medial elbow extending approximately 3-4 inches proximally initially observed 10/25/17. -Upper extremity ultrasound showed: minimal thrombus noted within the Left cephalic vein near the IV site. No DVT noted within RUE. -Nurse informed to switch IV line from Left arm -will continue to monitor (4) Pancytopenia ICD Codes: D61.818 - Other pancytopenia Plan: Labile WBC, stable Hgb Hem/Onc consulted, appreciate recs -Neupogen PRN per Hematology -Monitor CBC and transfuse as needed -Continue daily folate (5) Rash and nonspecific skin eruption ICD Codes: R21 - Rash and other nonspecific skin eruption Status: Acute Plan: petechiae vs contact dermatitis vs drug reaction; Improving significantly -Continue to monitor (6) Delirium ICD Codes: R41.0 - Disorientation, unspecified Status: Resolved Plan: Ammonia wnl. -Continue O2 supplementation -Dronabinol 2.5mg BID was initially held but is currently being given and does not seem to contribute to delirium (7) AAA (abdominal aortic aneurysm) ICD Codes: I71.4 - Abdominal aortic aneurysm, without rupture Plan: CT abd/pelvis w/o contrast done 09/30 5cm infrarenal abdominal aortic aneurysm Aorta CTA 7.3 cm infrarenal AAA with laminated wall, contained rupture which may be chronic and possible associated aortic wall inflammation indicating aortitis Vascular surgery consulted, appreciate recs [facility] confirms that no intervention at this time No intervention for AAA until infection cleared -Continue to follow at this time -Continue metoprolol tartrate 12.5mg BID for tachycardia (8) GI bleed ICD Codes: K92.2 - Gastrointestinal hemorrhage, unspecified Status: Resolved Plan: GI consulted for mesenteric stranding and ascites, appreciate recommendations -Protonix 40mg IV BID -Supportive care -Sign off; consult as needed Avoid NSAIDs and anticoagulation EGD in 2 months Colonoscopy in 2 years (9) Hematuria ICD Codes: R31.9 - Hematuria, unspecified Status: Resolved Plan: -UA 09/30 moderate occult blood, unlikely traumatic, patient has condom catheter -PSA wnl 0.15 -Renal US 10/04 demonstrated small nonobstructing 3mm calyceal calculus in the mid left kidney. 1.4 cm cyst in the inferior pole of the right kidney. -Urology consulted, recs appreciated Urologic impression: gross hematuria (now resolved) of indeterminate etiology; abnormal coagulation profile and thrombocytopenia likely contributing to the hematuria * manage conservatively for now * office follow up after hospital discharge when overall medical condition improved for cystoscopic evaluation [phone] * will be available as needed during present hospitalization (10) Hepatitis C ICD Codes: B19.20 - Unspecified viral hepatitis C without hepatic coma Status: Acute Plan: -paracentesis 10/21/17 Impression: Patient reports history of Hep C. Patient reports being treated in the s. LFTs wnl. alpha fetoprotein wnl HCV quant, less than 15 IUs/ml, less than 1.18 log IUs/ml A/P CT with moderate pelvic ascites, calcified gallstones. Abdominal US- cirrhotic appearing liver; ascites in upper abdomen. Gallstones and thickened gallbladder wall. Splenomegaly; assumed secondary to portal hypertension/cirrhosis (11) Abnormal chest x-ray ICD Codes: R93.8 - Abnormal findings on diagnostic imaging of other specified body structures Plan: Impression: Heavy smoker. Mass 2.51 x 3.86 found on CXR. Small free- flowing right pleural effusion at the base. CT revealed dominant opacity seen on recent CXR represents loculated pleural effusion in the superior major fissure. Small b/l pleural effusions, mild consolidative infiltrates in the right lower lung, and right upper abdominal ascites. Calcified gallstones. S/p thoracentesis 10/01/2017- pleural fluid negative for malignancy (12) Decreased appetite ICD Codes: R63.0 - Anorexia Status: Acute Plan: -Continue to monitor intake -c/w Marinol BID -Prozac 20mg daily (13) Sacral wound ICD Codes: S31.000A - Unspecified open wound of lower back and pelvis without penetration into retroperitoneum, initial encounter Plan: Unstageable sacral wound, 3cm x 6cm Wound care consulted, recommendations appreciated 1) Cleanse sacral wound with normal saline,pat dry. 2) Apply skin prep to gibran wound 3) Santyl josé thick to wound bed 4) Cover with Maxorb 2 cut to fit. 5) Cover with dry dressing (boarder gauze) 6) Change dressing Daily will re-evaluate . (14) Nutrition, metabolism, and development symptoms ICD Codes: R63.8 - Other symptoms and signs concerning food and fluid intake Plan: Fluids: 84mls/hr NS Diet: Lack of PO intake; Regular Basic diet Electrolytes: monitor and replace as needed Other: Case management consulted GI ppx: Protonix 40mg IV q12h DVT ppx: SCDs See the residents documentation for details. I saw and evaluated the patient regarding the roland portions of this evaluation and agree with the residents findings and plans as written. Parts of this note were created using [email or web address] voice recognition software program. While efforts were made to correct any mistakes made by this software, some mistakes, errors, and omissions may remain in the final note that were not caught when the note was originally created. Plan of care was discussed and agreed upon with the patient as specifically documented in the above note. An opportunity to ask questions with explanation was provided. Patient voiced understanding on all information reviewed and discussed. (Akshat Chen MD) Problem Qualifiers (1) Elbow swelling: Qualified Codes: M25.421 - Effusion, right elbow (2) GI bleed: Qualified Codes: K92.2 - Gastrointestinal hemorrhage, unspecified (3) Sacral wound: Qualified Codes: S31.000D - Unspecified open wound of lower back and pelvis without penetration into retroperitoneum, subsequent encounter Anastacio Marx MD R3 Oct 27, 2017 16:29 Akshat Chen MD Oct 28, 2017 16:28
--- NOTE | 2017-10-27 19:56 | HHI.PR ---
Subjective Remarks Still on O2 4 L .CXR is stable. Less edema Wants to go home. WBC only 1.8. Objective Vital Signs Date Time Temp Pulse Resp B/P (MAP) Pulse Ox O2 Delivery O2 Flow Rate FiO2 10/27/17 16:00 97.6 106 20 92/59 (70) 90 10/27/17 12:00 98.0 92 20 96/65 (75) 96 10/27/17 09:54 Nasal Cannula 4.00 10/27/17 09:20 93 Nasal Cannula 5.00 10/27/17 07:57 96.9 92 21 94/60 (71) 95 10/27/17 04:00 98.3 102 17 135/60 (85) 92 10/27/17 00:00 95.7 112 15 148/57 (87) 94 10/26/17 20:50 93 Nasal Cannula 5.00 10/26/17 20:00 95.9 113 15 107/60 (76) 92 I/O 10/26/17 10/26/17 10/26/17 10/27/17 10/27/17 10/27/17 07:00 15:00 23:00 07:00 15:00 23:00 Intake Total 120 ml 808 ml 680 ml 240 ml 220 ml 870 ml Output Total 350 ml 450 ml 1000 ml Balance -230 ml 808 ml 230 ml 240 ml 220 ml -130 ml Intake Oral 120 ml 480 ml 240 ml 120 ml 870 ml IV Total 808 ml 200 ml 100 ml Output Urine Total 350 ml 450 ml 1000 ml # Voids 3 2 # Bowel Movements 1 2 1 5 Result Diagram: 10/27/17 0700 10/26/17 0631 Objective Remarks GENERAL: This is a moderately overweight elderly white male who is alert . HEENT: Head normocephalic. Pupils are reactive. Sclerae anicteric. Throat was dry. NECK: Supple. No bruits or thyroid enlargement. CHEST: Distant breath sounds over the lower chest with occasional bibasilar crackles. H S Regular ,No Murmur. No S3 gallop. ABDOMEN: Soft and protuberant. There is some tenderness in the upper abdomen The bowel sounds are active.No Mass. EXTREMITIES:1 + Edema with decreased peripheral pulses. Reflexes are 1+ . SKIN: No lesions observed. Assessment and Plan Assessment and Plan IMPRESSION 1. Loculated left pleural effusion. Resolving 2. History of hepatitis C. Ascites 3. GI bleeding with anemia and gastric ulceration. 4. Atelectasis both bases with probable resolving pneumonia 5. COPD with emphysema and chronic bronchitis 6. Sepsis resolved 7. Pancytopenia. 8. Abdominal aortic aneurysm. PLan : 1. Cont Aldactone 25 mg bid 2. IS at bedside q3h. PFT. 3. Cont Lasix 20 mg daily. 4. Wean O2 and Switch to N/C 3 L 5. Ensure supplements tid. 6. Continue antibiotics per ID 7. PT evaluation 8. Rehab Placement. 9. Hematology Evaluation Yasemin Redding MD Oct 27, 2017 19:56
[2017-10-27] MEDS: HALOPERIDOL LACTATE 5 MG/ML AMP IV PRN (21:07)
[2017-10-28] VITALS (8 sets, daily range): BP systolic 90–141; BP diastolic 51–88; PULSE 83–118; RESP 18–20; TEMP 96.9–98.7; O2SAT 90–100
[2017-10-28] MEDS: PANTOPRAZOLE SODIUM 40 MG VIAL IV PUSH SCH ×2 (00:16→13:53)
[2017-10-28] MEDS: metroNIDAZOLE 500 MG INJ 100 ML IV SCH ×3 (00:16→16:02)
[2017-10-28] MEDS: SODIUM CHLOR 0.9% 1000 ML INJ 1,000 ML IV SCH ×2 (05:24→16:02)
[2017-10-28 07:45] LABS: AUTOMATED NEUTROPHIL # 4.8 TH/MM3 (1.8-7.7); BASOPHIL % 0.5 % (0.0-2.0); EOSINOPHIL % 0.8 % (0.0-4.0); HEMATOCRIT 24.1 % (39.0-51.0); HEMOGLOBIN 8.3 GM/DL (13.0-17.0); LYMPH % 12.5 % (9.0-44.0); LYMPHOCYTE # 0.7 TH/MM3 (1.0-4.8); MEAN CELL VOLUME 93.6 FL (80.0-100.0); MEAN CORPUSCULAR HGB CONC 34.2 % (32.0-36.0); MEAN PLATELET VOLUME 8.4 FL (7.0-11.0); MONO % 2.6 % (0.0-8.0); MONOCYTE # 0.2 TH/MM3 (0-0.9); NEUT % 83.6 % (16.0-70.0); PLATELET COUNT 45 TH/MM3 (150-450); RED BLOOD COUNT 2.58 MIL/MM3 (4.50-5.90); RED CELL DISTRIBUTION WIDTH 19.4 % (11.6-17.2); WHITE BLOOD COUNT 5.7 TH/MM3 (4.0-11.0)
[2017-10-28 08:03] LABS: BICARBONATE 29.1 MEQ/L (21.0-32.0); CALCIUM 7.8 MG/DL (8.5-10.1); CREATININE 0.3 MG/DL (0.60-1.30)
[2017-10-28 08:36] LABS: BANDS 10 % (0-6); LYMPHOCYTES 4 % (9-44); METAMYELOCYTES 1 % (0-1); MONOCYTES 1 % (0-8); NEUTROPHIL # MANUAL DIFF 5.4 TH/MM3 (1.8-7.7); POLYS (SEG NEUTROPHILS) 84 % (16-70); TOXIC GRANULATION 2+ (NORMAL)
[2017-10-28 08:37] LABS: OVALOCYTES 1+ (NORMAL)
[2017-10-28] MEDS: FLUoxetine HCL 20 MG CAP PO SCH (08:44)
[2017-10-28] MEDS: SPIRONOLACTONE 25 MG TAB PO SCH ×2 (08:44→16:01)
[2017-10-28] MEDS: FUROSEMIDE 20 MG TAB PO SCH (08:44)
[2017-10-28] MEDS: FOLIC ACID 1 MG TAB PO SCH (08:44)
[2017-10-28] MEDS: SODIUM CHLORIDE 0.9% FLUSH 10 ML FLUSH IV FLUSH SCH ×2 (08:45→22:25)
[2017-10-28] MEDS: BUDESONIDE-FORMOTEROL 160/4.5 MCG INHALER INH SCH ×2 (08:45→22:26)
[2017-10-28] MEDS: POTASSIUM CHLORIDE 20 MEQ CONTROLLED RELEASE TAB PO SCH ×3 (08:45→22:23)
[2017-10-28] MEDS: NYSTATIN 100,000 U/GM PWD 15 GM BTL TOPICAL SCH ×2 (08:45→22:21)
[2017-10-28] MEDS: COLLAGENASE OINT 30 GM TUBE TOPICAL SCH (08:45)
[2017-10-28] MEDS: METOPROLOL TARTRATE 25 MG TAB PO SCH ×2 (08:46→21:00)
--- NOTE | 2017-10-28 10:30 | HHI.FF ---
Infusion Therapy Location of Infusion Therapy: [facility] Infusion Therapy Order Patient Information Patient Weight 60.2 kg Diagnosis: Coded Allergies: No Known Allergies (Unverified , 09/28/17) Administer Medication Ertapenem 1 gram IV q 24 hours Start Treatment: Oct 28, 2017 Stop Treatment: Nov 25, 2017 Additional Information Venous access: PICC Line Additional Instructions [x] Peripheral flush and dressing changes per protocol [x] Implanted port and central can line examiner: * Implanted port: 10 ml Normal Saline followed by 5 ml Heparin 100 units/ml Heparin flush after each use and monthly to maintain. [] May leave port accessed during therapy. [] May leave peripheral site accessed for duration of therapy. [x] If patient has SOB or respiratory distress, check oxygen saturation. If less than 90% or clinical signs of respiratory distress, administer oxygen at 2 L/min. via nasal cannula and notify physician. [x] Anaphylaxis/Reaction orders: * Stop infusion. * Keep IV line open with saline flush. * Notify physician. * Monitor vital signs every 15 minutes until symptoms resolve. * Check Oxygen saturation; Oxygen at 2 L/min. via nasal cannula if less than 90% or clinical signs of respiratory distress. * Administer diphenhydramine (Benadryl) 25 mg IV STAT, (unless patient has received as pre-med). May repeat once, if necessary. * Solu-Cortef 250 mg IVP over 30-60 seconds, use 100 mg vials for each dissolution. * Epinephrine (1mg/1 ml) 0.3 mg subcutaneously or IVP now with any signs of respiratory distress. * Check with physician for new additional pre-med orders if patient is re- challenged or re-treated. [x] May remove PICC line when treatment complete, after confirming with Physician. [x] If the patient is admitted to the hospital, the ED, or transferred via [facility] , complete transfer form including medication reconciliation order sheet. Laboratory Tests Weekly Labs: CBC w/diff, Creatinine, LFT's (Hepatic function test) Additional Information blood cultures x 2 2 weeks after completed antibiotics Marleni Giraldo MD Oct 28, 2017 10:29
[2017-10-28] MEDS ORDERED: INVA1INJ IV (10:33)
[2017-10-28] MEDS ORDERED: EPIN1INJ21 IV PUSH (10:33)
[2017-10-28] MEDS ORDERED: EPIN1INJ21 SQ (10:33)
[2017-10-28] MEDS ORDERED: SOLU250I IV PUSH (10:33)
--- NOTE | 2017-10-28 11:09 | PD.ONC.PN ---
Subjective Subjective Remarks Afebrile overnight. Patient somnolent. Per nurse, he received a dose of haldol this AM. (late entry, patient seen at ~10AM) Objective Data Date Time Temp Pulse Resp B/P (MAP) Pulse Ox O2 Delivery O2 Flow Rate FiO2 10/28/17 09:00 95 Nasal Cannula 5.00 10/28/17 08:45 Nasal Cannula 5.00 10/28/17 08:00 97.9 93 20 108/88 (95) 95 10/28/17 06:14 91 Nasal Cannula 5.00 10/28/17 04:00 97.0 110 20 90/60 (70) 91 10/28/17 00:00 97.5 118 20 99/61 (74) 90 10/27/17 20:00 97.3 102 20 111/69 (83) 91 10/27/17 16:00 97.6 106 20 92/59 (70) 90 10/27/17 12:00 98.0 92 20 96/65 (75) 96 10/28/17 10/28/17 10/28/17 07:00 15:00 23:00 Intake Total 1100 ml 120 ml Balance 1100 ml 120 ml Result Diagram: 10/28/17 0630 10/28/17 0630 Laboratory Results Laboratory Tests Test 10/28/17 06:30 White Blood Count 5.7 TH/MM3 Red Blood Count 2.58 MIL/MM3 Hemoglobin 8.3 GM/DL Hematocrit 24.1 % Mean Corpuscular Volume 93.6 FL Mean Corpuscular Hemoglobin 32.0 PG Mean Corpuscular Hemoglobin Concent 34.2 % Red Cell Distribution Width 19.4 % Platelet Count 45 TH/MM3 Mean Platelet Volume 8.4 FL Neutrophils (%) (Auto) 83.6 % Lymphocytes (%) (Auto) 12.5 % Monocytes (%) (Auto) 2.6 % Eosinophils (%) (Auto) 0.8 % Basophils (%) (Auto) 0.5 % Neutrophils # (Auto) 4.8 TH/MM3 Lymphocytes # (Auto) 0.7 TH/MM3 Monocytes # (Auto) 0.2 TH/MM3 Eosinophils # (Auto) 0.0 TH/MM3 Basophils # (Auto) 0.0 TH/MM3 CBC Comment AUTO DIFF Differential Total Cells Counted 100 Neutrophils % (Manual) 84 % Band Neutrophils % 10 % Lymphocytes % 4 % Monocytes % 1 % Neutrophils # (Manual) 5.4 TH/MM3 Metamyelocytes 1 % Differential Comment FINAL DIFF MANUAL Toxic Granulation 2+ Platelet Estimate LOW Platelet Morphology Comment NORMAL Ovalocytes 1+ Blood Urea Nitrogen 14 MG/DL Creatinine 0.30 MG/DL Random Glucose 58 MG/DL Calcium Level 7.8 MG/DL Sodium Level 140 MEQ/L Potassium Level 3.4 MEQ/L Chloride Level 102 MEQ/L Carbon Dioxide Level 29.1 MEQ/L Anion Gap 9 MEQ/L Estimat Glomerular Filtration Rate 299 ML/MIN Administered Medications Medications (Trade) Dose Ordered Sig/Jailene Route PRN Reason Start Time Stop Time Status Last Admin Dose Admin Sodium Chloride (NS Flush) 2 ml BID IV FLUSH 09/28/17 13:45 10/27/17 21:06 Pantoprazole Sodium (Protonix Inj) 40 mg Q12H IV PUSH 09/28/17 14:00 10/28/17 00:16 Collagenase (Santyl Oint) 1 applic DAILY TOPICAL 09/29/17 12:45 10/28/17 08:45 Diphenhydramine HCl (Benadryl) 25 mg Q4H PRN PO SEE LABEL COMMENTS 10/01/17 09:30 10/01/17 09:30 Diphenhydramine HCl (Benadryl 2% Cream) 1 applic TID PRN TOPICAL ITCHING 10/02/17 10:00 10/02/17 10:23 Folic Acid (Folate) 1 mg DAILY PO 10/02/17 11:00 10/28/17 08:44 Ertapenem 1000 mg/ Sodium Chloride 100 ml @ 200 mls/hr Q24H IV 10/06/17 14:00 Future hold 10/27/17 12:18 Mirtazapine (Remeron) 15 mg HS PO 10/16/17 21:00 Future Hold 10/18/17 21:39 Metoprolol Tartrate (Lopressor) 12.5 mg Q12HR PO 10/16/17 21:00 10/28/17 08:46 Diphenhydramine HCl (Benadryl) 25 mg Q6H PRN PO RASH 10/18/17 10:00 10/26/17 08:22 Spironolactone (Aldactone) 25 mg BID@09,18 PO 10/18/17 18:00 10/28/17 08:44 Potassium Chloride (KCl) 20 meq Q12HR PO 10/18/17 21:00 10/28/17 08:45 Furosemide (Lasix) 20 mg DAILY PO 10/19/17 09:00 10/28/17 08:44 Nystatin (Mycostatin Powder) 1 applic Q12HR TOPICAL 10/19/17 09:00 10/28/17 08:45 Fluoxetine HCl (PROzac) 20 mg DAILY PO 10/19/17 09:00 10/28/17 08:44 Haloperidol Lactate (Haldol Inj) 0.5 mg TID PRN IV AGITATION 10/19/17 10:00 10/27/17 21:07 Dronabinol (Marinol) 2.5 mg BID@11,16 PO 10/20/17 11:00 10/27/17 16:14 Miscellaneous Information Patient in critical care unit? Ass... [id number] .XX 10/20/17 20:30 10/20/17 20:30 Sodium Chloride 1,000 ml @ 84 mls/hr [id number] IV 10/21/17 08:00 10/28/17 05:24 Metronidazole 100 ml @ 100 mls/hr Q8H IV 10/21/17 17:00 10/28/17 08:45 Budesonide/ Formoterol Fumarate (Symbicort 160-4.5 Mcg Inh) 2 puff Q12HR INH 10/24/17 09:00 10/28/17 08:45 Filgrastim (Neupogen Inj) 300 mcg DAILY@14 SQ 10/27/17 14:00 Future Hold 10/27/17 13:28 Multi-Ingredient Ointment (Eucerin Cream) 1 applic Q6H PRN TOPICAL dry skin 10/27/17 11:00 10/27/17 21:04 Objective Remarks GENERAL: chronically ill male, lying in bed, sleeping on approach. he awakens with loud speech, but quickly falls back asleep SKIN: dry skin noted. HEAD: Normocephalic. EYES: No injection or drainage. NECK: Supple, trachea midline. CARDIOVASCULAR: +S1/S2 RESPIRATORY: scattered rhonchi noted in anterior post. GASTROINTESTINAL: Abdomen soft, non-tender, nondistended. EXTREMITIES: No cyanosis NEUROLOGICAL: awake but lethargic. Assessment/Plan Problem List: (1) Pancytopenia ICD Codes: D61.818 - Other pancytopenia Plan: --chronic d/t poor synthetic liver function --monitor and transfuse as needed --give Neupogen as needed for neutrophil count less than 1.5 Assessment 66y/o male with pancytopenia and failure to thrive. --history of hepatitis C diagnosed in the ;states he was treated for the hepatitis C and this was "cleared." Repeat hepatitis C titers this hospitalization indicate low circulating hepatitis C vital titers. --CT angiogram showed cirrhotic-appearing liver with splenomegaly and moderate ascites. --likely has baseline pancytopenia due to cirrhosis and splenomegaly with further drop in the white blood cell and platelet count due to recent sepsis. Plan 1. stop neupogen 2. monitor CBC Attending Statement The exam, history, and the medical decision-making described in the above note were completed with the assistance of the mid-level provider. I reviewed and agree with the findings presented. I attest that I had a [id number] encounter with the patient on the same day, and personally performed and documented my assessment and findings in the medical record. Remains afebrile. WBC trended back up with neupogen. Stop neupogen. Monitor CBC. Maria Elena Gómez Oct 28, 2017 11:09 Shaun Gerardo MD Oct 28, 2017 17:47
[2017-10-28] MEDS: DRONABINOL 2.5 MG CAP PO SCH ×2 (12:50→16:01)
--- NOTE | 2017-10-28 12:59 | HHI.PR ---
Subjective Remarks Still on O2 4 L .CXR is stable. mild effusions noted Less edema Objective Vital Signs Date Time Temp Pulse Resp B/P (MAP) Pulse Ox O2 Delivery O2 Flow Rate FiO2 10/28/17 12:00 98.7 85 20 95/59 (71) 95 10/28/17 09:00 95 Nasal Cannula 5.00 10/28/17 08:45 Nasal Cannula 5.00 10/28/17 08:00 97.9 93 20 108/88 (95) 95 10/28/17 06:14 91 Nasal Cannula 5.00 10/28/17 04:00 97.0 110 20 90/60 (70) 91 10/28/17 00:00 97.5 118 20 99/61 (74) 90 10/27/17 20:00 97.3 102 20 111/69 (83) 91 10/27/17 16:00 97.6 106 20 92/59 (70) 90 I/O 10/27/17 10/27/17 10/27/17 10/28/17 10/28/17 10/28/17 07:00 15:00 23:00 07:00 15:00 23:00 Intake Total 240 ml 220 ml 1120 ml 1100 ml 120 ml Output Total 1000 ml Balance 240 ml 220 ml 120 ml 1100 ml 120 ml Intake Oral 240 ml 120 ml 870 ml 0 ml 120 ml IV Total 100 ml 1100 ml Tube Feeding 200 ml Other 50 ml Output Urine Total 1000 ml # Voids 2 4 # Bowel Movements 1 5 Result Diagram: 10/28/17 0630 10/28/17 0630 Objective Remarks GENERAL: This is a moderately overweight elderly white male who is alert . Mild Pallor. HEENT: Head normocephalic. Pupils are reactive. Sclerae anicteric. Throat was dry. NECK: Supple. No bruits or thyroid enlargement. CHEST: Distant breath sounds over the lower chest with occasional bibasilar crackles. H S Regular ,No Murmur. No S3 gallop. ABDOMEN: Soft and protuberant. There is some tenderness in the upper abdomen The bowel sounds are active.No Mass. EXTREMITIES:1 + Edema with decreased peripheral pulses. Reflexes are 1+ . SKIN: No lesions observed. Assessment and Plan Assessment and Plan IMPRESSION 1. Loculated left pleural effusion. Resolving 2. History of hepatitis C. Ascites 3. GI bleeding with anemia and gastric ulceration. 4. Atelectasis both bases with probable resolving pneumonia 5. COPD with emphysema and chronic bronchitis 6. Sepsis resolved 7. Pancytopenia. 8. Abdominal aortic aneurysm. PLan : 1. Cont Aldactone 25 mg bid 2. IS at bedside q3h. PFT. 3. Cont Lasix 20 mg daily. 4. Wean O2 to 4L 5. Ensure supplements tid. 6. Continue antibiotics per ID 7. PT evaluation 8. CBC,BMP in am 9. Hematology Evaluation Yasemin Redding MD Oct 28, 2017 12:59
[2017-10-28] MEDS: ERTAPENEM INJ 1,000 MG in SODIUM CHLORIDE 0.9% INJ 100 ML IV SCH (13:53)
--- NOTE | 2017-10-28 15:11 | HHI.FPPN ---
Subjective Remarks She seen and examined at bedside today. Denies any chest pain or generalized pain. Patient does report decreased appetite. No other concerns. (Gustavo Moody MD, R1) Objective Vitals Vital Signs Date Time Temp Pulse Resp B/P (MAP) Pulse Ox O2 Delivery O2 Flow Rate FiO2 10/28/17 12:00 98.7 85 20 95/59 (71) 95 10/28/17 09:00 95 Nasal Cannula 5.00 10/28/17 08:45 Nasal Cannula 5.00 10/28/17 08:00 97.9 93 20 108/88 (95) 95 10/28/17 06:14 91 Nasal Cannula 5.00 10/28/17 04:00 97.0 110 20 90/60 (70) 91 10/28/17 00:00 97.5 118 20 99/61 (74) 90 10/27/17 20:00 97.3 102 20 111/69 (83) 91 10/27/17 16:00 97.6 106 20 92/59 (70) 90 I/O 10/27/17 10/27/17 10/27/17 10/28/17 10/28/17 10/28/17 07:00 15:00 23:00 07:00 15:00 23:00 Intake Total 240 ml 220 ml 1120 ml 1100 ml 120 ml Output Total 1000 ml Balance 240 ml 220 ml 120 ml 1100 ml 120 ml Intake Oral 240 ml 120 ml 870 ml 0 ml 120 ml IV Total 100 ml 1100 ml Tube Feeding 200 ml Other 50 ml Output Urine Total 1000 ml # Voids 2 4 # Bowel Movements 1 5 (Gustavo Moody MD, R1) Result Diagram: 10/28/1730 10/28/17 0630 Objective Remarks CONSTITUTIONAL/GEN: Cachectic male, lying in bed PSYCH/NEURO: AOx3. No CN defects. No peripheral motor/sensory defects. SKIN: Maculopapular rash extending from mid back along the left axilla and torso , improved LUNGS: Coarse lung sounds. Patient on nasal cannula. CARDIOVASCULAR: Regular rhythm; No LE edema GI/ABD: soft, normal BS; no pain to palpation : catheter in place (Gustavo Moody MD, R1) A/P Assessment and Plan 66 yr old M Hep C, hx of heavy smoking (2ppd for 61 yrs), and chronic aspirin use presented to the ED with anemia and black tarry stools secondary to suspected GI bleed. Patient transferred to ICU 09/30 for ESBL E.coli sepsis. Patient hemodynamically stable for transfer to med/surg 10/03. Patient confused/ delirious with hypercarbia 10/19; transferred to ICU for BIPAP. Discharge Planning Case Management to assist with SNF placement, accepted to [facility] She received Haldol overnight, was SNL was not able to accept patient today. anticipate discharge tomorrow (Gustavo Moody MD, R1) Problem List: (1) Hypoxia ICD Codes: R09.02 - Hypoxemia Status: Acute Plan: improved mental status. On nasal cannula now -Transferred to med/surg floor -Continue to monitor -Pulmonology consulted, follow-up recommendations * s/p thoracentesis 10/18 * Incentive spirometry * DuoNeb 4 times a day, when necessary * Aldactone 25mg BID * O2 to keep sat>92 * Lasix 20 mg daily * CXR (10/23): stable BL pleural effusions and predominantly basilar infiltrates. (2) Bacteremia ICD Codes: R78.81 - Bacteremia Status: Acute Plan: ID consulted, appreciate recommendations * E.coli ESBL sepsis, source is likely GI, questionable SBP * Continue Ertapenem 1000 mg IV q24h (10/02) x 6-8 weeks per ID History: Transferred to med/surg floor 10/03; previously transferred to ICU secondary to ESBL sepsis. Patient met sepsis criteria 09/29 due to tachycardic at 95-113 and hypotension 86/53 Lactic acid 1.4 09/29, Repeat lactic acid 1.5 s/p 500cc bolus of NS, MIVF 140mls/hr 09/29 * CT abd/pelvis w/o contrast done 09/30 revealed moderate size left pleural effusion, ascites, 5cm infrarenal abdominal aortic aneurysm and mesenteric stranding. * CTA 10/01 7.3 cm AAA, contained rupture, cirrhosis, splenomegaly, cholelithiasis, moderate ascites, no evident of protal vein thrombosis or Budd- Chiari syndrome, COPD with bibasilar airspace disease and parapneumonic effusions * 2-D echo - 60-65% EF * Left pleural effusion- thoracentesis with removal of 750 cc of dark yellow fluid. Fluid appeared transudative. * Ascites- paracentesis with removal of 1100 cc of yellow fluids. This appeared due to portal hypertension. * Possibility of aortoenteric fistula Cultures: Pleural fluid 10/18: Cultures with no growth to date Stool cultures negative Blood- Cultures 10/10 NGTD Staph hominis 10/06 (pansensitive) ESBL E Coli 09/29 (resistant, to Ampicillin, Unasyn, Cefazolin, Cefepime, Cefuroxime, Levofloxacin) Antibiotic history: Vancomycin (restarted 10/07-10/11) Vancomycin 1,250mg IV q12h (09/29-10/01) Zosyn 4.5 gm IV q6h (started 09/30-09/22) Azithromycin 250mg PO daily (10/01-10/04) (3) Elbow swelling ICD Codes: M25.429 - Effusion, unspecified elbow Plan: Nontender and non-throbbing edema along Right medial elbow extending approximately 3-4 inches proximally initially observed 10/25/17. -Upper extremity ultrasound showed: minimal thrombus noted within the Left cephalic vein near the IV site. No DVT noted within RUE. -Nurse informed to switch IV line from Left arm -will continue to monitor (4) Pancytopenia ICD Codes: D61.818 - Other pancytopenia Plan: Labile WBC, stable Hgb Hem/Onc consulted, appreciate recs -Neupogen PRN per Hematology, WBC 5.7, hematology DC'd Neupogen -Monitor CBC and transfuse as needed -Continue daily folate (5) Rash and nonspecific skin eruption ICD Codes: R21 - Rash and other nonspecific skin eruption Status: Acute Plan: petechiae vs contact dermatitis vs drug reaction; Improving significantly -Continue to monitor (6) Delirium ICD Codes: R41.0 - Disorientation, unspecified Status: Resolved Plan: Ammonia wnl. -Continue O2 supplementation -Dronabinol 2.5mg BID was initially held but is currently being given and does not seem to contribute to delirium (7) AAA (abdominal aortic aneurysm) ICD Codes: I71.4 - Abdominal aortic aneurysm, without rupture Plan: CT abd/pelvis w/o contrast done 09/30 5cm infrarenal abdominal aortic aneurysm Aorta CTA 7.3 cm infrarenal AAA with laminated wall, contained rupture which may be chronic and possible associated aortic wall inflammation indicating aortitis Vascular surgery consulted, appreciate recs [facility] confirms that no intervention at this time No intervention for AAA until infection cleared -Continue to follow at this time -Continue metoprolol tartrate 12.5mg BID for tachycardia (8) GI bleed ICD Codes: K92.2 - Gastrointestinal hemorrhage, unspecified Status: Resolved Plan: GI consulted for mesenteric stranding and ascites, appreciate recommendations -Protonix 40mg IV BID -Supportive care -Sign off; consult as needed Avoid NSAIDs and anticoagulation EGD in 2 months Colonoscopy in 2 years (9) Hepatitis C ICD Codes: B19.20 - Unspecified viral hepatitis C without hepatic coma Status: Acute Plan: -paracentesis 10/21/17 Impression: Patient reports history of Hep C. Patient reports being treated in the 's. LFTs wnl. alpha fetoprotein wnl HCV quant, less than 15 IUs/ml, less than 1.18 log IUs/ml A/P CT with moderate pelvic ascites, calcified gallstones. Abdominal US- cirrhotic appearing liver; ascites in upper abdomen. Gallstones and thickened gallbladder wall. Splenomegaly; assumed secondary to portal hypertension/cirrhosis (10) Abnormal chest x-ray ICD Codes: R93.8 - Abnormal findings on diagnostic imaging of other specified body structures Plan: Impression: Heavy smoker. Mass 2.51 x 3.86 found on CXR. Small free- flowing right pleural effusion at the base. CT revealed dominant opacity seen on recent CXR represents loculated pleural effusion in the superior major fissure. Small b/l pleural effusions, mild consolidative infiltrates in the right lower lung, and right upper abdominal ascites. Calcified gallstones. S/p thoracentesis 10/01/2017- pleural fluid negative for malignancy (11) Decreased appetite ICD Codes: R63.0 - Anorexia Status: Acute Plan: -Continue to monitor intake -c/w Marinol BID -Prozac 20mg daily (12) Sacral wound ICD Codes: S31.000A - Unspecified open wound of lower back and pelvis without penetration into retroperitoneum, initial encounter Plan: Unstageable sacral wound, 3cm x 6cm Wound care consulted, recommendations appreciated 1) Cleanse sacral wound with normal saline,pat dry. 2) Apply skin prep to gibran wound 3) Santyl josé thick to wound bed 4) Cover with Maxorb 2 cut to fit. 5) Cover with dry dressing (boarder gauze) 6) Change dressing Daily will re-evaluate . (13) Nutrition, metabolism, and development symptoms ICD Codes: R63.8 - Other symptoms and signs concerning food and fluid intake Plan: Fluids: 84mls/hr NS Diet: Lack of PO intake; Regular Basic diet Electrolytes: monitor and replace as needed Other: Case management consulted GI ppx: Protonix 40mg IV q12h DVT ppx: SCDs (Gustavo Moody MD, R1) Problem List: (1) Hypoxia ICD Codes: R09.02 - Hypoxemia Status: Acute Plan: improved mental status. On nasal cannula now -Transferred to med/surg floor -Continue to monitor -Pulmonology consulted, follow-up recommendations * s/p thoracentesis 10/18 * Incentive spirometry * DuoNeb 4 times a day, when necessary * Aldactone 25mg BID * O2 to keep sat>92 * Lasix 20 mg daily * CXR (10/23): stable BL pleural effusions and predominantly basilar infiltrates. (2) Bacteremia ICD Codes: R78.81 - Bacteremia Status: Acute Plan: ID consulted, appreciate recommendations * E.coli ESBL sepsis, source is likely GI, questionable SBP * Continue Ertapenem 1000 mg IV q24h (10/02) x 6-8 weeks per ID History: Transferred to med/surg floor 10/03; previously transferred to ICU secondary to ESBL sepsis. Patient met sepsis criteria 09/29 due to tachycardic at 95-113 and hypotension 86/53 Lactic acid 1.4 09/29, Repeat lactic acid 1.5 s/p 500cc bolus of NS, MIVF 140mls/hr 09/29 * CT abd/pelvis w/o contrast done 09/30 revealed moderate size left pleural effusion, ascites, 5cm infrarenal abdominal aortic aneurysm and mesenteric stranding. * CTA 10/01 7.3 cm AAA, contained rupture, cirrhosis, splenomegaly, cholelithiasis, moderate ascites, no evident of protal vein thrombosis or Budd- Chiari syndrome, COPD with bibasilar airspace disease and parapneumonic effusions * 2-D echo - 60-65% EF * Left pleural effusion- thoracentesis with removal of 750 cc of dark yellow fluid. Fluid appeared transudative. * Ascites- paracentesis with removal of 1100 cc of yellow fluids. This appeared due to portal hypertension. * Possibility of aortoenteric fistula Cultures: Pleural fluid 10/18: Cultures with no growth to date Stool cultures negative Blood- Cultures 10/10 NGTD Staph hominis 10/06 (pansensitive) ESBL E Coli 09/29 (resistant, to Ampicillin, Unasyn, Cefazolin, Cefepime, Cefuroxime, Levofloxacin) Antibiotic history: Vancomycin (restarted 10/07-10/11) Vancomycin 1,250mg IV q12h (09/29-10/01) Zosyn 4.5 gm IV q6h (started 09/30-09/22) Azithromycin 250mg PO daily (10/01-10/04) (3) Elbow swelling ICD Codes: M25.429 - Effusion, unspecified elbow Plan: Nontender and non-throbbing edema along Right medial elbow extending approximately 3-4 inches proximally initially observed 10/25/17. -Upper extremity ultrasound showed: minimal thrombus noted within the Left cephalic vein near the IV site. No DVT noted within RUE. -Nurse informed to switch IV line from Left arm -will continue to monitor (4) Pancytopenia ICD Codes: D61.818 - Other pancytopenia Plan: Labile WBC, stable Hgb Hem/Onc consulted, appreciate recs -Neupogen PRN per Hematology, WBC 5.7, hematology DC'd Neupogen -Monitor CBC and transfuse as needed -Continue daily folate (5) Rash and nonspecific skin eruption ICD Codes: R21 - Rash and other nonspecific skin eruption Status: Acute Plan: petechiae vs contact dermatitis vs drug reaction; Improving significantly -Continue to monitor (6) Delirium ICD Codes: R41.0 - Disorientation, unspecified Status: Resolved Plan: Ammonia wnl. -Continue O2 supplementation -Dronabinol 2.5mg BID was initially held but is currently being given and does not seem to contribute to delirium (7) AAA (abdominal aortic aneurysm) ICD Codes: I71.4 - Abdominal aortic aneurysm, without rupture Plan: CT abd/pelvis w/o contrast done 09/30 5cm infrarenal abdominal aortic aneurysm Aorta CTA 7.3 cm infrarenal AAA with laminated wall, contained rupture which may be chronic and possible associated aortic wall inflammation indicating aortitis Vascular surgery consulted, appreciate recs [facility] confirms that no intervention at this time No intervention for AAA until infection cleared -Continue to follow at this time -Continue metoprolol tartrate 12.5mg BID for tachycardia (8) GI bleed ICD Codes: K92.2 - Gastrointestinal hemorrhage, unspecified Status: Resolved Plan: GI consulted for mesenteric stranding and ascites, appreciate recommendations -Protonix 40mg IV BID -Supportive care -Sign off; consult as needed Avoid NSAIDs and anticoagulation EGD in 2 months Colonoscopy in 2 years (9) Hepatitis C ICD Codes: B19.20 - Unspecified viral hepatitis C without hepatic coma Status: Acute Plan: -paracentesis 10/21/17 Impression: Patient reports history of Hep C. Patient reports being treated in the 's. LFTs wnl. alpha fetoprotein wnl HCV quant, less than 15 IUs/ml, less than 1.18 log IUs/ml A/P CT with moderate pelvic ascites, calcified gallstones. Abdominal US- cirrhotic appearing liver; ascites in upper abdomen. Gallstones and thickened gallbladder wall. Splenomegaly; assumed secondary to portal hypertension/cirrhosis (10) Abnormal chest x-ray ICD Codes: R93.8 - Abnormal findings on diagnostic imaging of other specified body structures Plan: Impression: Heavy smoker. Mass 2.51 x 3.86 found on CXR. Small free- flowing right pleural effusion at the base. CT revealed dominant opacity seen on recent CXR represents loculated pleural effusion in the superior major fissure. Small b/l pleural effusions, mild consolidative infiltrates in the right lower lung, and right upper abdominal ascites. Calcified gallstones. S/p thoracentesis 10/01/2017- pleural fluid negative for malignancy (11) Decreased appetite ICD Codes: R63.0 - Anorexia Status: Acute Plan: -Continue to monitor intake -c/w Marinol BID -Prozac 20mg daily (12) Sacral wound ICD Codes: S31.000A - Unspecified open wound of lower back and pelvis without penetration into retroperitoneum, initial encounter Plan: Unstageable sacral wound, 3cm x 6cm Wound care consulted, recommendations appreciated 1) Cleanse sacral wound with normal saline,pat dry. 2) Apply skin prep to gibran wound 3) Santyl josé thick to wound bed 4) Cover with Maxorb 2 cut to fit. 5) Cover with dry dressing (boarder gauze) 6) Change dressing Daily will re-evaluate . (13) Nutrition, metabolism, and development symptoms ICD Codes: R63.8 - Other symptoms and signs concerning food and fluid intake Plan: Fluids: 84mls/hr NS Diet: Lack of PO intake; Regular Basic diet Electrolytes: monitor and replace as needed Other: Case management consulted GI ppx: Protonix 40mg IV q12h DVT ppx: SCDs See the residents documentation for details. I saw and evaluated the patient regarding the roland portions of this evaluation and agree with the residents findings and plans as written. Parts of this note were created using [employer] voice recognition software program. While efforts were made to correct any mistakes made by this software, some mistakes, errors, and omissions may remain in the final note that were not caught when the note was originally created. Plan of care was discussed and agreed upon with the patient as specifically documented in the above note. An opportunity to ask questions with explanation was provided. Patient voiced understanding on all information reviewed and discussed. (Akshat Chen MD) Problem Qualifiers (1) Elbow swelling: Qualified Codes: M25.421 - Effusion, right elbow (2) GI bleed: Qualified Codes: K92.2 - Gastrointestinal hemorrhage, unspecified (3) Sacral wound: Qualified Codes: S31.000D - Unspecified open wound of lower back and pelvis without penetration into retroperitoneum, subsequent encounter Gustavo Moody MD, R1 Oct 28, 2017 15:11 Akshat Chen MD Oct 30, 2017 12:46
[2017-10-29] VITALS: BP 96/58; PULSE 88; RESP 18; TEMP 97; O2SAT 90
[2017-10-29] MEDS: metroNIDAZOLE 500 MG INJ 100 ML IV SCH ×2 (02:19→12:08)
[2017-10-29] MEDS: PANTOPRAZOLE SODIUM 40 MG VIAL IV PUSH SCH ×2 (02:19→14:24)
[2017-10-29 04:00] VITALS: BP 101/57; PULSE 87; RESP 20; TEMP 95.6; O2SAT 91
--- NOTE | 2017-10-29 06:05 | RADRPT ---
EXAM DATE/TIME: 10/29/2017 05:21 [place] COMPARISON: CHEST SINGLE AP, October 23, 2017, 3:25. INDICATIONS : Shortness of breath. MEDICAL HISTORY : Hepatitis C. Methicillin-resistant Staphylococcus aureus. Dyspnea SURGICAL HISTORY : Paracentesis ENCOUNTER: Subsequent ACUITY: 1 month PAIN SCORE: Non-responsive. LOCATION: Bilateral chest FINDINGS: The cardiac silhouette is enlarged in transverse diameter. There is left lower lobe atelectasis versu s pneumonia. A moderate size left sided effusion is present. CONCLUSION: 1. Left lower lobe atelectasis versus pneumonia. Left effusion There has been no significant change w hen compared to the prior exam. Jon Belcher MD on October 29, 2017 at 6:02 Board Certified Radiologist. This report was verified electronically.
[2017-10-29] MEDS: SODIUM CHLOR 0.9% 1000 ML INJ 1,000 ML IV SCH (06:40)
[2017-10-29 08:00] VITALS: BP 92/52; PULSE 78; RESP 16; TEMP 96.2; O2SAT 92
[2017-10-29] MEDS: FUROSEMIDE 20 MG TAB PO SCH (09:00)
[2017-10-29] MEDS: COLLAGENASE OINT 30 GM TUBE TOPICAL SCH (09:00)
[2017-10-29] MEDS: METOPROLOL TARTRATE 25 MG TAB PO SCH (09:00)
[2017-10-29] MEDS: POTASSIUM CHLORIDE 20 MEQ CONTROLLED RELEASE TAB PO SCH ×2 (09:00→09:05)
[2017-10-29] MEDS: FLUoxetine HCL 20 MG CAP PO SCH (09:04)
[2017-10-29] MEDS: SPIRONOLACTONE 25 MG TAB PO SCH (09:04)
[2017-10-29] MEDS: FOLIC ACID 1 MG TAB PO SCH (09:04)
[2017-10-29] MEDS: SODIUM CHLORIDE 0.9% FLUSH 10 ML FLUSH IV FLUSH SCH (09:05)
[2017-10-29] MEDS: NYSTATIN 100,000 U/GM PWD 15 GM BTL TOPICAL SCH (09:06)
[2017-10-29] MEDS: BUDESONIDE-FORMOTEROL 160/4.5 MCG INHALER INH SCH (09:06)
[2017-10-29 09:13] LABS: AUTOMATED NEUTROPHIL # 3.1 TH/MM3 (1.8-7.7); BASOPHIL % 0.6 % (0.0-2.0); EOSINOPHIL # 0.1 TH/MM3 (0-0.4); EOSINOPHIL % 1.8 % (0.0-4.0); HEMATOCRIT 24.7 % (39.0-51.0); HEMOGLOBIN 8.4 GM/DL (13.0-17.0); LYMPH % 17.1 % (9.0-44.0); LYMPHOCYTE # 0.7 TH/MM3 (1.0-4.8); MEAN CELL VOLUME 93.3 FL (80.0-100.0); MEAN CORPUSCULAR HEMOGLOBIN 31.7 PG (27.0-34.0); MEAN PLATELET VOLUME 8.2 FL (7.0-11.0); MONOCYTE # 0.2 TH/MM3 (0-0.9); NEUT % 76.5 % (16.0-70.0); PLATELET COUNT 57 TH/MM3 (150-450); RED BLOOD COUNT 2.65 MIL/MM3 (4.50-5.90); RED CELL DISTRIBUTION WIDTH 19.4 % (11.6-17.2)
[2017-10-29 09:40] LABS: BICARBONATE 31.9 MEQ/L (21.0-32.0); CALCIUM 7.7 MG/DL (8.5-10.1); CREATININE 0.34 MG/DL (0.60-1.30)
[2017-10-29 10:04] LABS: TOXIC GRANULATION 2+ (NORMAL)
[2017-10-29 12:00] VITALS: BP 123/62; PULSE 87; RESP 18; TEMP 95.7; O2SAT 93
[2017-10-29] MEDS: DRONABINOL 2.5 MG CAP PO SCH (12:07)
--- NOTE | 2017-10-29 12:25 | HHI.FPPN ---
Subjective Remarks Patient seen and examined at bedside. No acute events overnight. Pt state he feels tired as he has the previous days. He stated he appetite is still low. No other concerns or questions. (Gustavo Moody MD, R1) Objective Vitals Vital Signs Date Time Temp Pulse Resp B/P (MAP) Pulse Ox O2 Delivery O2 Flow Rate FiO2 10/29/17 08:00 92 Nasal Cannula 10/29/17 08:00 78 10/29/17 08:00 96.2 78 16 92/52 (65) 92 10/29/17 04:00 95.6 87 20 101/57 (72) 91 10/29/17 00:00 97.0 88 18 96/58 (71) 90 10/28/17 21:50 90 Nasal Cannula 4.00 10/28/17 20:00 98.0 110 18 93/51 (65) 90 10/28/17 16:00 96.9 83 20 141/64 (89) 100 I/O 10/28/17 10/28/17 10/28/17 10/29/17 10/29/17 10/29/17 07:00 15:00 23:00 07:00 15:00 23:00 Intake Total 1100 ml 320 ml 100 ml 190 ml Output Total 150 ml Balance 1100 ml 320 ml -50 ml 190 ml Intake Oral 0 ml 120 ml 0 ml 90 ml IV Total 1100 ml 200 ml 100 ml 100 ml Output Urine Total 150 ml # Voids 4 3 # Bowel Movements 0 (Gustavo Moody MD, R1) Result Diagram: 10/29/1781710/29/17817 Objective Remarks CONSTITUTIONAL/GEN: Cachectic male, lying in bed PSYCH/NEURO: AOx3. No CN defects. No peripheral motor/sensory defects. SKIN: mild maculopapular rash contained to top of left shoulder are, improved LUNGS: Coarse lung sounds. Patient on nasal cannula. CARDIOVASCULAR: Regular rhythm; No LE edema GI/ABD: soft, normal BS; no pain to palpation : catheter in place (Gustavo Moody MD, R1) A/P Assessment and Plan 66 yr old M Hep C, hx of heavy smoking (2ppd for 61 yrs), and chronic aspirin use presented to the ED with anemia and black tarry stools secondary to suspected GI bleed. Patient transferred to ICU 09/30 for ESBL E.coli sepsis. Patient hemodynamically stable for transfer to med/surg 10/03. Patient confused/ delirious with hypercarbia 10/19; transferred to ICU for BIPAP. Discharge Planning Case Management to assist with SNF placement, accepted to [facility] anticipate discharge today (Gustavo Moody MD, R1) Problem List: (1) Hypoxia ICD Codes: R09.02 - Hypoxemia Status: Acute Plan: improved mental status. On nasal cannula now -Transferred to med/surg floor -Continue to monitor -Pulmonology consulted, follow-up recommendations * s/p thoracentesis 10/18 * Incentive spirometry * DuoNeb 4 times a day, when necessary * Aldactone 25mg BID * O2 to keep sat>92 * Lasix 20 mg daily * CXR (10/23): stable BL pleural effusions and predominantly basilar infiltrates. (2) Bacteremia ICD Codes: R78.81 - Bacteremia Status: Acute Plan: ID consulted, appreciate recommendations * E.coli ESBL sepsis, source is likely GI, questionable SBP * Continue Ertapenem 1000 mg IV q24h (10/02) x 6-8 weeks per ID History: Transferred to med/surg floor 10/03; previously transferred to ICU secondary to ESBL sepsis. Patient met sepsis criteria 09/29 due to tachycardic at 95-113 and hypotension 86/53 Lactic acid 1.4 09/29, Repeat lactic acid 1.5 s/p 500cc bolus of NS, MIVF 140mls/hr 09/29 * CT abd/pelvis w/o contrast done 09/30 revealed moderate size left pleural effusion, ascites, 5cm infrarenal abdominal aortic aneurysm and mesenteric stranding. * CTA 10/01 7.3 cm AAA, contained rupture, cirrhosis, splenomegaly, cholelithiasis, moderate ascites, no evident of protal vein thrombosis or Budd- Chiari syndrome, COPD with bibasilar airspace disease and parapneumonic effusions * 2-D echo - 60-65% EF * Left pleural effusion- thoracentesis with removal of 750 cc of dark yellow fluid. Fluid appeared transudative. * Ascites- paracentesis with removal of 1100 cc of yellow fluids. This appeared due to portal hypertension. * Possibility of aortoenteric fistula Cultures: Pleural fluid 10/18: Cultures with no growth to date Stool cultures negative Blood- Cultures 10/10 NGTD Staph hominis 10/06 (pansensitive) ESBL E Coli 09/29 (resistant, to Ampicillin, Unasyn, Cefazolin, Cefepime, Cefuroxime, Levofloxacin) Antibiotic history: Vancomycin (restarted 10/07-10/11) Vancomycin 1,250mg IV q12h (09/29-10/01) Zosyn 4.5 gm IV q6h (started 09/30-09/22) Azithromycin 250mg PO daily (10/01-10/04) -PICC line placed for continued abx treatment (3) Elbow swelling ICD Codes: M25.429 - Effusion, unspecified elbow Plan: Nontender and non-throbbing edema along Right medial elbow extending approximately 3-4 inches proximally initially observed 10/25/17. -Upper extremity ultrasound showed: minimal thrombus noted within the Left cephalic vein near the IV site. No DVT noted within RUE. -Nurse informed to switch IV line from Left arm -IV infiltrated on right arm and it was removed by nursing staff. Pt with swelling of Right arm, denies pain of arm and non tender on palpation. -PICC line placed for continued abx treatment (4) Pancytopenia ICD Codes: D61.818 - Other pancytopenia Plan: Labile WBC, stable Hgb Hem/Onc consulted, appreciate recs -Neupogen PRN per Hematology, WBC 5.7, hematology DC'd Neupogen -Monitor CBC and transfuse as needed -Continue daily folate (5) Rash and nonspecific skin eruption ICD Codes: R21 - Rash and other nonspecific skin eruption Status: Acute Plan: petechiae vs contact dermatitis vs drug reaction; minimum and contained to upper left shoulder, Improved significantly -Continue to monitor (6) Delirium ICD Codes: R41.0 - Disorientation, unspecified Status: Resolved Plan: Ammonia wnl. -Continue O2 supplementation -Dronabinol 2.5mg BID was initially held but is currently being given and does not seem to contribute to delirium (7) AAA (abdominal aortic aneurysm) ICD Codes: I71.4 - Abdominal aortic aneurysm, without rupture Plan: CT abd/pelvis w/o contrast done 09/30 5cm infrarenal abdominal aortic aneurysm Aorta CTA 7.3 cm infrarenal AAA with laminated wall, contained rupture which may be chronic and possible associated aortic wall inflammation indicating aortitis Vascular surgery consulted, appreciate recs [facility] confirms that no intervention at this time No intervention for AAA until infection cleared -Continue to follow at this time -Continue metoprolol tartrate 12.5mg BID for tachycardia (8) GI bleed ICD Codes: K92.2 - Gastrointestinal hemorrhage, unspecified Status: Resolved Plan: GI consulted for mesenteric stranding and ascites, appreciate recommendations -Protonix 40mg IV BID -Supportive care -Sign off; consult as needed Avoid NSAIDs and anticoagulation EGD in 2 months Colonoscopy in 2 years (9) Hepatitis C ICD Codes: B19.20 - Unspecified viral hepatitis C without hepatic coma Status: Acute Plan: -paracentesis 10/21/17 Impression: Patient reports history of Hep C. Patient reports being treated in the s. LFTs wnl. alpha fetoprotein wnl HCV quant, less than 15 IUs/ml, less than 1.18 log IUs/ml A/P CT with moderate pelvic ascites, calcified gallstones. Abdominal US- cirrhotic appearing liver; ascites in upper abdomen. Gallstones and thickened gallbladder wall. Splenomegaly; assumed secondary to portal hypertension/cirrhosis (10) Abnormal chest x-ray ICD Codes: R93.8 - Abnormal findings on diagnostic imaging of other specified body structures Plan: Impression: Heavy smoker. Mass 2.51 x 3.86 found on CXR. Small free- flowing right pleural effusion at the base. CT revealed dominant opacity seen on recent CXR represents loculated pleural effusion in the superior major fissure. Small b/l pleural effusions, mild consolidative infiltrates in the right lower lung, and right upper abdominal ascites. Calcified gallstones. S/p thoracentesis 10/01/2017- pleural fluid negative for malignancy (11) Decreased appetite ICD Codes: R63.0 - Anorexia Status: Acute Plan: -Continue to monitor intake -c/w Marinol BID -Prozac 20mg daily (12) Sacral wound ICD Codes: S31.000A - Unspecified open wound of lower back and pelvis without penetration into retroperitoneum, initial encounter Plan: Unstageable sacral wound, 3cm x 6cm stable -f/u updated wound care recommendations (13) Nutrition, metabolism, and development symptoms ICD Codes: R63.8 - Other symptoms and signs concerning food and fluid intake Plan: Fluids: 84mls/hr NS Diet: Lack of PO intake; Regular Basic diet Electrolytes: monitor and replace as needed Other: Case management consulted GI ppx: Protonix 40mg IV q12h DVT ppx: SCDs (Gustavo Moody MD, R1) Problem List: (1) Hypoxia ICD Codes: R09.02 - Hypoxemia Status: Acute Plan: improved mental status. On nasal cannula now -Transferred to med/surg floor -Continue to monitor -Pulmonology consulted, follow-up recommendations * s/p thoracentesis 10/18 * Incentive spirometry * DuoNeb 4 times a day, when necessary * Aldactone 25mg BID * O2 to keep sat>92 * Lasix 20 mg daily * CXR (10/23): stable BL pleural effusions and predominantly basilar infiltrates. (2) Bacteremia ICD Codes: R78.81 - Bacteremia Status: Acute Plan: ID consulted, appreciate recommendations * E.coli ESBL sepsis, source is likely GI, questionable SBP * Continue Ertapenem 1000 mg IV q24h (10/02) x 6-8 weeks per ID History: Transferred to med/surg floor 10/03; previously transferred to ICU secondary to ESBL sepsis. Patient met sepsis criteria 09/29 due to tachycardic at 95-113 and hypotension 86/53 Lactic acid 1.4 09/29, Repeat lactic acid 1.5 s/p 500cc bolus of NS, MIVF 140mls/hr 09/29 * CT abd/pelvis w/o contrast done 09/30 revealed moderate size left pleural effusion, ascites, 5cm infrarenal abdominal aortic aneurysm and mesenteric stranding. * CTA 10/01 7.3 cm AAA, contained rupture, cirrhosis, splenomegaly, cholelithiasis, moderate ascites, no evident of protal vein thrombosis or Budd- Chiari syndrome, COPD with bibasilar airspace disease and parapneumonic effusions * 2-D echo - 60-65% EF * Left pleural effusion- thoracentesis with removal of 750 cc of dark yellow fluid. Fluid appeared transudative. * Ascites- paracentesis with removal of 1100 cc of yellow fluids. This appeared due to portal hypertension. * Possibility of aortoenteric fistula Cultures: Pleural fluid 10/18: Cultures with no growth to date Stool cultures negative Blood- Cultures 10/10 NGTD Staph hominis 10/06 (pansensitive) ESBL E Coli 09/29 (resistant, to Ampicillin, Unasyn, Cefazolin, Cefepime, Cefuroxime, Levofloxacin) Antibiotic history: Vancomycin (restarted 10/07-10/11) Vancomycin 1,250mg IV q12h (09/29-10/01) Zosyn 4.5 gm IV q6h (started 09/30-09/22) Azithromycin 250mg PO daily (10/01-10/04) -PICC line placed for continued abx treatment (3) Elbow swelling ICD Codes: M25.429 - Effusion, unspecified elbow Plan: Nontender and non-throbbing edema along Right medial elbow extending approximately 3-4 inches proximally initially observed 10/25/17. -Upper extremity ultrasound showed: minimal thrombus noted within the Left cephalic vein near the IV site. No DVT noted within RUE. -Nurse informed to switch IV line from Left arm -IV infiltrated on right arm and it was removed by nursing staff. Pt with swelling of Right arm, denies pain of arm and non tender on palpation. -PICC line placed for continued abx treatment (4) Pancytopenia ICD Codes: D61.818 - Other pancytopenia Plan: Labile WBC, stable Hgb Hem/Onc consulted, appreciate recs -Neupogen PRN per Hematology, WBC 5.7, hematology DC'd Neupogen -Monitor CBC and transfuse as needed -Continue daily folate (5) Rash and nonspecific skin eruption ICD Codes: R21 - Rash and other nonspecific skin eruption Status: Acute Plan: petechiae vs contact dermatitis vs drug reaction; minimum and contained to upper left shoulder, Improved significantly -Continue to monitor (6) Delirium ICD Codes: R41.0 - Disorientation, unspecified Status: Resolved Plan: Ammonia wnl. -Continue O2 supplementation -Dronabinol 2.5mg BID was initially held but is currently being given and does not seem to contribute to delirium (7) AAA (abdominal aortic aneurysm) ICD Codes: I71.4 - Abdominal aortic aneurysm, without rupture Plan: CT abd/pelvis w/o contrast done 09/30 5cm infrarenal abdominal aortic aneurysm Aorta CTA 7.3 cm infrarenal AAA with laminated wall, contained rupture which may be chronic and possible associated aortic wall inflammation indicating aortitis Vascular surgery consulted, appreciate recs [facility] confirms that no intervention at this time No intervention for AAA until infection cleared -Continue to follow at this time -Continue metoprolol tartrate 12.5mg BID for tachycardia (8) GI bleed ICD Codes: K92.2 - Gastrointestinal hemorrhage, unspecified Status: Resolved Plan: GI consulted for mesenteric stranding and ascites, appreciate recommendations -Protonix 40mg IV BID -Supportive care -Sign off; consult as needed Avoid NSAIDs and anticoagulation EGD in 2 months Colonoscopy in 2 years (9) Hepatitis C ICD Codes: B19.20 - Unspecified viral hepatitis C without hepatic coma Status: Acute Plan: -paracentesis 10/21/17 Impression: Patient reports history of Hep C. Patient reports being treated in the 's. LFTs wnl. alpha fetoprotein wnl HCV quant, less than 15 IUs/ml, less than 1.18 log IUs/ml A/P CT with moderate pelvic ascites, calcified gallstones. Abdominal US- cirrhotic appearing liver; ascites in upper abdomen. Gallstones and thickened gallbladder wall. Splenomegaly; assumed secondary to portal hypertension/cirrhosis (10) Abnormal chest x-ray ICD Codes: R93.8 - Abnormal findings on diagnostic imaging of other specified body structures Plan: Impression: Heavy smoker. Mass 2.51 x 3.86 found on CXR. Small free- flowing right pleural effusion at the base. CT revealed dominant opacity seen on recent CXR represents loculated pleural effusion in the superior major fissure. Small b/l pleural effusions, mild consolidative infiltrates in the right lower lung, and right upper abdominal ascites. Calcified gallstones. S/p thoracentesis 10/01/2017- pleural fluid negative for malignancy (11) Decreased appetite ICD Codes: R63.0 - Anorexia Status: Acute Plan: -Continue to monitor intake -c/w Marinol BID -Prozac 20mg daily (12) Sacral wound ICD Codes: S31.000A - Unspecified open wound of lower back and pelvis without penetration into retroperitoneum, initial encounter Plan: Unstageable sacral wound, 3cm x 6cm stable -f/u updated wound care recommendations (13) Nutrition, metabolism, and development symptoms ICD Codes: R63.8 - Other symptoms and signs concerning food and fluid intake Plan: Fluids: 84mls/hr NS Diet: Lack of PO intake; Regular Basic diet Electrolytes: monitor and replace as needed Other: Case management consulted GI ppx: Protonix 40mg IV q12h DVT ppx: SCDs See the residents documentation for details. I saw and evaluated the patient regarding the roland portions of this evaluation and agree with the residents findings and plans as written. Parts of this note were created using [employer] voice recognition software program. While efforts were made to correct any mistakes made by this software, some mistakes, errors, and omissions may remain in the final note that were not caught when the note was originally created. Plan of care was discussed and agreed upon with the patient as specifically documented in the above note. An opportunity to ask questions with explanation was provided. Patient voiced understanding on all information reviewed and discussed. (Akshat Chen MD) Problem Qualifiers (1) Elbow swelling: Qualified Codes: M25.421 - Effusion, right elbow (2) GI bleed: Qualified Codes: K92.2 - Gastrointestinal hemorrhage, unspecified (3) Sacral wound: Qualified Codes: S31.000D - Unspecified open wound of lower back and pelvis without penetration into retroperitoneum, subsequent encounter Gustavo Moody MD, R1 Oct 29, 2017 12:25 Akshat Chen MD Oct 30, 2017 13:04
[2017-10-29] MEDS ORDERED: SPIR25 PO (12:41)
[2017-10-29] MEDS ORDERED: FURO20TA PO (12:41)
[2017-10-29] MEDS ORDERED: FOLI1TAB6 PO (12:41)
[2017-10-29] MEDS ORDERED: DRON2.5 PO (12:45)
--- NOTE | 2017-10-29 12:46 | HHI.DCPOC ---
Discharge Care Plan Diagnosis: (1) Bacteremia (2) GI bleed (3) AAA (abdominal aortic aneurysm) Goals to Promote Your Health * To prevent worsening of your condition and complications * To maintain your health at the optimal level Directions to Meet Your Goals Take your medications as prescribed Follow your dietary instruction Follow activity as directed Keep your appointments as scheduled Take your immunizations and boosters as scheduled If your symptoms worsen call your PCP, if no PCP go to Urgent Care Center or Emergency Room Smoking is Dangerous to Your Health. Avoid second hand smoke Call the 24-hour hour crisis hotline for domestic abuse at Gustavo Moody MD, R1 Oct 29, 2017 12:46
--- NOTE | 2017-10-29 13:03 | HHI.PR ---
Subjective Remarks Now on O2 4 L .CXR is stable. mild effusions noted Less edema Poor intake . Will go to rehab Objective Vital Signs Date Time Temp Pulse Resp B/P (MAP) Pulse Ox O2 Delivery O2 Flow Rate FiO2 10/29/17 12:00 95.7 87 18 123/62 (82) 93 10/29/17 08:00 92 Nasal Cannula 10/29/17 08:00 78 10/29/17 08:00 96.2 78 16 92/52 (65) 92 10/29/17 04:00 95.6 87 20 101/57 (72) 91 10/29/17 00:00 97.0 88 18 96/58 (71) 90 10/28/17 21:50 90 Nasal Cannula 4.00 10/28/17 20:00 98.0 110 18 93/51 (65) 90 10/28/17 16:00 96.9 83 20 141/64 (89) 100 I/O 10/28/17 10/28/17 10/28/17 10/29/17 10/29/17 10/29/17 07:00 15:00 23:00 07:00 15:00 23:00 Intake Total 1100 ml 320 ml 100 ml 190 ml Output Total 150 ml Balance 1100 ml 320 ml -50 ml 190 ml Intake Oral 0 ml 120 ml 0 ml 90 ml IV Total 1100 ml 200 ml 100 ml 100 ml Output Urine Total 150 ml # Voids 4 3 # Bowel Movements 0 Result Diagram: 10/29/1781710/29/1718 Objective Remarks GENERAL: This is a moderately overweight elderly white male who is alert . Mild Pallor. HEENT: Head normocephalic. Pupils are reactive. Sclerae anicteric. Throat was dry. NECK: Supple. No bruits or thyroid enlargement. CHEST: Distant breath sounds over the lower chest with occasional basilar crackles. H S Regular ,No Murmur. No S3 gallop. ABDOMEN: Soft and protuberant. There is some tenderness in the upper abdomen The bowel sounds are active.No Mass. EXTREMITIES:1 + Edema with decreased peripheral pulses. Reflexes are 1+ . SKIN: No lesions observed. Assessment and Plan Assessment and Plan IMPRESSION 1. Loculated left pleural effusion. Resolving 2. History of hepatitis C. Ascites 3. GI bleeding with anemia and gastric ulceration. 4. Atelectasis both bases with probable resolving pneumonia 5. COPD with emphysema and chronic bronchitis 6. Sepsis resolved 7. Pancytopenia. 8. Abdominal aortic aneurysm. PLan : 1. Cont Aldactone 25 mg bid 2. IS at bedside q3h. 3. Cont Lasix 20 mg daily. 4. Wean O2 to 4L 5. Ensure supplements tid. 6. Continue antibiotics per ID 7. PT evaluation 8. To Rehab, and will F/U as OP in 3 weeks Yasemin Redding MD Oct 29, 2017 13:03
--- NOTE | 2017-10-29 13:31 | PD.WCN.NOT ---
Wound Consult Description: Consult ordered by DR.Van CARRANZA for sacral wound Communicated with: ASIF Franklin CNA Dr Calzado Recommendation: 1) Cleanse sacral wounds with normal saline and pat dry. 2) Apply skin prep to gibran wound 3) Apply Optifoam Gentle border 4) Change every 3 days and PRN for soiling or dislodgement Additional Information: Patient seen on for evaluation of wound to sacrum. Patient was assisted to his left side for assessment with assistance from MIRZA Rubio. Bordered gauze dressing was removed to reveal two partial thickness wounds on sacrum. Largest wound noted centrally on sacrum measuring 1cm x 1.5cm x <0.1cm of ~80% pink tissue and ~20% diffuse islands of epithelial tissue in wound bed without drainage and without odor. Smallest wound noted on the left distal portion of sacrum and measures 0.7cm x 1cm x <0.1cm of 100% pink tissue in wound bed. Wounds are both partial thickness and within each others periwounds by intact red blanchable erythema. Patient is noted on a specialty surface and being repositioned to his left side with a pillow under his right side when leaving room. Recommend to DOROTHY Molina as wounds are free of necrotic tissue and beginning to close. However wounds were dressed as ordered until new orders can be obtained from physician. Jeanine Velazquez [facility] CENT[facility]thel Oct 29, 2017 13:31
[2017-10-29] MEDS: ERTAPENEM INJ 1,000 MG in SODIUM CHLORIDE 0.9% INJ 100 ML IV SCH (14:23)
--- NOTE | 2017-11-07 14:52 | PQ ---
Physician Query Response Document PATIENT: KRAIE RICO : 1950 ADMIT DATE: 09/28/2017 1:10 PM DISCH DATE: 10/29/2017 4:45 PM RESPONDING PROVIDER #: Leeanna QUERY TEXT: Present On Admission It is unclear whether a diagnosis was present on admission. Your help is needed. Please clarify the POA status Such as: Ecoli Sepsis -- Present on admission -- Not present on admission The patient's Clinical Indicators include: Problem List: (1) Bacteremia ICD Codes: R78.81 - Bacteremia Status: Acute Plan: Patient met sepsis criteria 09/29 due to tachycardic at 95-113 and hypotensive 86/53 ,possibly source of infiltrate in RLL on chest CT Lactic acid 1.4 09/29 s/p 500cc bolus of NS, MIVF 140mls/hr 09/29 Preliminary blood cultures positive for E.coli Patient transfer to ICU on 09/30 for further care Poleyard Supervisor and ID consulted Repeat lactic acid CT abd/pelvis w/o contrast ordered Blood cultures positivie for Escherichia Coli Esbl Positive Query created by: Poly Chou on 10/31/2017 12:16 PM RESPONSE TEXT: Provider disagreed with this CDI query. I did not follow this patient long-term as I changed service. Electronically signed by: Iwona Pate MD 11/07/2017 2:47 PM
== END 2017-10-29 16:45 | DRG 377 ==
LOC: NEPC 10:32 → NEDA 13:10 → N04B 15:00 → N03B 09-30 17:01 → N04B 09-30 17:03 → N03B 09-30 17:52 → N07B 10-03 13:38 → HIMN 10-19 14:00 → N07A 10-24 12:14
PROVIDERS: ADMIT Family Medicine; ATTEND Family Medicine
PROC: 30233N1 Transfusion of Nonautologous Red Blood Cells into Peripheral Vein, Percutaneous Approach (ICD-10-PCS; 2017-09-28)
PROC: 0DBN8ZX Excision of Sigmoid Colon, Via Natural or Artificial Opening Endoscopic, Diagnostic (ICD-10-PCS; 2017-09-29)
PROC: 0DB68ZX Excision of Stomach, Via Natural or Artificial Opening Endoscopic, Diagnostic (ICD-10-PCS; principal; 2017-09-29 14:23)
PROC: 30233K1 Transfusion of Nonautologous Frozen Plasma into Peripheral Vein, Percutaneous Approach (ICD-10-PCS; 2017-09-30)
PROC: 0W9G3ZX Drainage of Peritoneal Cavity, Percutaneous Approach, Diagnostic (ICD-10-PCS; 2017-10-01)
PROC: 0W9B3ZX Drainage of Left Pleural Cavity, Percutaneous Approach, Diagnostic (ICD-10-PCS; 2017-10-01)
PROC: 30233R1 Transfusion of Nonautologous Platelets into Peripheral Vein, Percutaneous Approach (ICD-10-PCS; 2017-10-01)
PROC: 0W9B3ZZ Drainage of Left Pleural Cavity, Percutaneous Approach (ICD-10-PCS; 2017-10-18)
PROC: 0W9G3ZX Drainage of Peritoneal Cavity, Percutaneous Approach, Diagnostic (ICD-10-PCS; 2017-10-21)
PROC: 05HY33Z Insertion of Infusion Device into Upper Vein, Percutaneous Approach (ICD-10-PCS; 2017-10-29)
DX: K25.4 Chronic or unspecified gastric ulcer with hemorrhage (principal); A41.51 Sepsis due to Escherichia coli [E. coli]; I71.3 Abdominal aortic aneurysm, ruptured; N17.9 Acute kidney failure, unspecified; J90 Pleural effusion, not elsewhere classified; D61.818 Other pancytopenia; J18.9 Pneumonia, unspecified organism; R18.8 Other ascites; R64 Cachexia; K76.6 Portal hypertension; E46 Unspecified protein-calorie malnutrition; J98.11 Atelectasis; F05 Delirium due to known physiological condition; D62 Acute posthemorrhagic anemia; I82.612 Acute embolism and thrombosis of superficial veins of left upper extremity; K80.20 Calculus of gallbladder without cholecystitis without obstruction; K52.9 Noninfective gastroenteritis and colitis, unspecified; D73.1 Hypersplenism; K74.60 Unspecified cirrhosis of liver; R31.0 Gross hematuria; R62.7 Adult failure to thrive; K44.9 Diaphragmatic hernia without obstruction or gangrene; K29.60 Other gastritis without bleeding; K63.5 Polyp of colon; B19.20 Unspecified viral hepatitis C without hepatic coma; F17.210 Nicotine dependence, cigarettes, uncomplicated; E87.6 Hypokalemia; E86.0 Dehydration; J43.9 Emphysema, unspecified; L98.499 Non-pressure chronic ulcer of skin of other sites with unspecified severity; Z66 Do not resuscitate; I77.6 Arteritis, unspecified; K31.9 Disease of stomach and duodenum, unspecified; G89.29 Other chronic pain; Z16.12 Extended spectrum beta lactamase (ESBL) resistance; H16.8 Other keratitis; R06.03 Acute respiratory distress; L27.0 Generalized skin eruption due to drugs and medicaments taken internally; E87.70 Fluid overload, unspecified; Z79.82 Long term (current) use of aspirin; Z51.5 Encounter for palliative care; Z23 Encounter for immunization; W19.XXXA Unspecified fall, initial encounter; Y93.01 Activity, walking, marching and hiking; Y92.59 Other trade areas as the place of occurrence of the external cause
CPT/HCPCS: 32555; 36415; 36430; 36569; 36600; 49083; 71010; 71045; 71260; 71275; 74174; 74176; 76604; 76700; 76775; 76937; 80048; 80053; 80076; 81001; 81256; 82040; 82042; 82103; 82105; 82140; 82150; 82272; 82378; 82390; 82550; 82552; 82607; 82728; 82746; 82805; 82945; 82948; 83010; 83520; 83540; 83550; 83605; 83615; 83735; 83986; 84100; 84153; 84157; 84484; 85007; 85014; 85018; 85025; 85027; 85044; 85384; 85610; 85730; 86038; 86255; 86301; 86703; 86850; 86880; 86900; 86901; 86920; 86927; 87015; 87040; 87070; 87077; 87102; 87116; 87186; 87205; 87206; 87338; 87425; 87493; 87506; 87522; 87641; 88112; 88305; 89051; 90686; 90732; 93005; 93306; 93970; 94150; 94640; 94664; 99285; C1729; C9113; J1335; J1442; J1630; J1644; J1940; J2250; J2370; J2543; J3370; J3475; J3480; J7030; J7040; J7050; J7512; J7613; P9016; P9017; P9035; P9047; Q0167; Q2038; Q9963; Q9967

== ENCOUNTER 2017-10-30 10:10 | Emergency (ER) | payer MEDICARE ==
[~2017-10-30] VITALS: Ht 170.2 cm; Wt 70.0 kg
[~2017-10-30 10:10] MED LIST: DRON2.5 PO; EPIN1INJ21 IV PUSH; EPIN1INJ21 SQ; FOLI1TAB6 PO; FURO20TA PO; INVA1INJ IV; SOLU250I IV PUSH; SPIR25 PO
[2017-10-30] MEDS ORDERED: EPINEPHrine HCL (1:10,000) 1 MG/10 ML SYRINGE IV ONE (10:11)
[2017-10-30 10:15] VITALS: PULSE 0; RESP 10; O2SAT 99
--- NOTE | 2017-10-30 10:26 | PD ---
HPI Chief Complaint: Code Blue Time Seen by Provider: 10:25 Travel History International Travel<30 days: No Contact w/Intl Traveler<30days: No Traveled to known affect area: No History of Present Illness HPI 67-year-old male was found unresponsive at the long-term. He has history of hepatitis C. patient was started CPR and EMS was called. When first responders arrived they took over the CPR and from that time until the arrival into the ER it was 40 minutes of CPR without a ROSC. Patient was intubated in the long-term by the paramedics with a Combitube. Patient was given multiple rounds of epinephrine and medications as per the ACLS protocol. As per the paramedics patient did have a DNR but it was not signed. When he arrived patient continued to be pulseless. CPR was resumed in the emergency room. As per the paramedics his blood sugar was 40 and they had given him D10. As per the paramedics when the first responders arrived they noticed that the long-term had already suctioned more than a canister of blood from his mouth. Patient was brought in to [facility] prior for GI bleed. [facility] Past Medical History Narrative Medical List of his past medical, surgical, social and family history was reviewed from the nursing note. Anxiety: No Depression: Yes Cancer: No Cardiovascular Problems: No Diabetes: No Diminished Hearing: No Endocrine: No Genitourinary: No Hepatitis: Yes (HEP C "IN THE 80'S" ) Musculoskeletal: No Psychiatric: Yes Reproductive: No Respiratory: No Thyroid Disease: No Social History Alcohol Use: Yes (OCCASIONAL WINE) Tobacco Use: Yes (1/2-1 PPD) Substance Use: No Allergies-Medications (Allergen,Severity, Reaction): Coded Allergies: No Known Allergies (Unverified , 09/28/17) Comments No known drug allergies. Reported Meds & Prescriptions Reported Meds & Active Scripts Active Marinol (Dronabinol) 2.5 Mg Cap 2.5 Mg PO BID@11,16 Aldactone (Spironolactone) 25 Mg Tab 25 Mg PO BID@09,18 Folic Acid 1 Mg Tablet 1 Mg PO DAILY Furosemide 20 Mg Tab 20 Mg PO DAILY Invanz Inj (Ertapenem) 1 Gm Addvial 1 Gm IV Q24H 28 Days ADMINISTER IN 100ML NS Epinephrine Inj 1 Mg/Ml (1 Ml) Inj 0.3 Mg SQ ONCE PRN Give with any signs of respiratory distress. Epinephrine Inj 1 Mg/Ml (1 Ml) Inj 0.3 Mg IV PUSH ONCE PRN Solu-Cortef Inj (Hydrocortisone Sodium Succinate) 250 Mg/2 Ml Inj 250 Mg IV PUSH ONCE PRN Give over 30-60 seconds. Narrative Medication List of his home medications reviewed from the nursing note. Review of Systems ROS Limitations: Intubated, Unresponsive Except as stated in HPI: all other systems reviewed are Neg Physical Exam Narrative GENERAL: Unresponsive, intubated, CPR being performed SKIN: Focused skin assessment warm/dry. Pale HEAD: Atraumatic. Normocephalic. EYES: Pupils equal and round, dilated and nonreactive to light. No scleral icterus. No injection or drainage. ENT: No nasal bleeding or discharge. Mucous membranes pink and moist. NECK: Trachea midline. No JVD. Combitube CARDIOVASCULAR: Pulseless RESPIRATORY: No spontaneous respirations GASTROINTESTINAL: Abdomen distended and tense MUSCULOSKELETAL: No obvious deformities. No clubbing. No cyanosis. No edema. NEUROLOGICAL: GCS of 3 PSYCHIATRIC: Unable to assess Data Data Last Documented VS Vital Signs Date Time Temp Pulse Resp B/P (MAP) Pulse Ox O2 Delivery O2 Flow Rate FiO2 10/30/17 10:15 0 10 99 Orders Orders Epinephrine (1:10,000) Inj (Epinephrine (10/30/17 10:11) MDM Medical Decision Making Medical Screen Exam Complete: Yes Emergency Medical Condition: Yes Medical Record Reviewed: Yes Differential Diagnosis Cardiorespiratory arrest, hemorrhagic shock Narrative Course 10:41 AM CPR was continued for less than 10 minutes since he had already received 40 minutes of CPR prior to arrival in the emergency room with no response. Pupils were fixed and dilated. 2 more rounds of epi were done. Bedside cardiac ultrasound showed idioventricular rhythm, poor contractility. At this point the embedded firmware engineer had contacted patient's healthcare proxy and I spoke with on the phone. She told me that she had gone to see the patient yesterday and he had told that he had no wish to get CPR if he lost his pulse. At this point knowing this the CPR was terminated. Time of was 1019 pronounced by me. I was also told that patient has no other family. The primary care doctor is trying to be contacted by the charge nurse. Procedures Procedure Narrative Emergency department cardiac ultrasound was performed by me emergently while patient was being coded [-] probe was used in the epigastric, parasternal long/short access, four- chamber apical revealing no evidence of pericardial effusion. Patient's overall cardiac squeeze was extremely poor and hypo-dynamic. Idioventricular rhythm was noticed EKG Prior to Arrival: No Diagnosis Primary Impression: Cardiorespiratory arrest Disposition: 20 Condition: Sophia Brown MD Oct 30, 2017 10:26
== END 2017-10-30 11:12 | disposition expired ==
LOC: NEPE 10:10
DX: I46.9 Cardiac arrest, cause unspecified (principal); B19.20 Unspecified viral hepatitis C without hepatic coma; F32.9 Major depressive disorder, single episode, unspecified; F17.200 Nicotine dependence, unspecified, uncomplicated
CPT/HCPCS: 92950; 99285; J0171